=== PATIENT | male | born 1960 | race Caucasian/White ===

== ENCOUNTER 2017-12-05 03:56 | Observation (INO) | payer MEDICARE, SELFPAY ==
[2017-12-05] VITALS (10 sets, daily range): BP systolic 128–152; BP diastolic 61–83; PULSE 61–92; RESP 15–19; TEMP 36.3–36.7; O2SAT 95–97; BMI 45.1; BMI 44.6; BMI 44.7
--- NOTE | 2017-12-05 04:11 | ED.VISSUMM ---
- ER Visit Summary Date of Service: 12/05/17 Chief Complaint: [] Lower GI bleeed History of Present Illness: The patient is a 57 M [] planing of lower GI bleed beginning 2-3 days ago. Patient reports a history of upper and lower GI bleed. Patient denies any hematemesis or nausea or vomiting. Reports a mixture of melena and bright red blood per rectum with intermittent bowel movements. Reports normal frequency of bowel movements. Denies chest pain or shortness of breath. Denies fatigue. Does report a history of BOOTHE syndrome/fatty liver syndrome. His at the bedside reports he takes lactulose for elevated ammonia levels. Reports his primary care physician is Dr. Broussard. Reports his department head is at [facility]. Physical Examination: [] Morbidly obese male in no acute distress. Afebrile, vital signs stable. Cardiovascular exam is regular rate and rhythm. Lungs are clear to auscultation. Abdomen is obese, soft, nontender. No lower extremity edema. Digital rectal exam reveals small external hemorrhoid with trace bright red blood per rectum from within the rectal cavity and not from the hemorrhoids. Test Results: [] CBC, BMP, LFTs, lipase within normal limits. INR 1.2. PTT 3 9.2. Ammonia pending. Emergency Department Course and Treatment: [] Patient did not have any active bleeding during the emergency department initial evaluation and on serial examination. Labs are normal. In light of the patient's chronic liver disease and history of previous GI bleed the case was discussed with the hospitalist who is amenable to admission if the on-call surgeon was also amenable to potentially evaluating the patient. The surgeon was okay with this arrangement and the patient will be admitted to the general medical floor. Treatment Plan: [] Admit to general medical floor. Disposition: [] Admit, stable. Impression: [] Lower GI bleed History of Boothe syndrome This note was generated with [employer] dictation software. It may contain incorrect words, spelling, and punctuation that were not noted in review of the chart prior to signing ED Disposition - Plan for ED Patient: Chief Complaint: GI Bleed Referrals: Pedro Pablo Broussard III, MD [Primary Care Provider] -
--- NOTE | 2017-12-05 04:14 | ED.DCSUM_ITS ---
- ER Visit Summary Date of Service: 12/05/17 Chief Complaint: [] Lower GI bleeed History of Present Illness: The patient is a 57 M [] planing of lower GI bleed beginning 2-3 days ago. Patient reports a history of upper and lower GI bleed. Patient denies any hematemesis or nausea or vomiting. Reports a mixture of melena and bright red blood per rectum with intermittent bowel movements. Reports normal frequency of bowel movements. Denies chest pain or shortness of breath. Denies fatigue. Does report a history of BOOTHE syndrome/fatty liver syndrome. His at the bedside reports he takes lactulose for elevated ammonia levels. Reports his primary care physician is Dr. Broussard. Reports his anatomic pathologist is at [facility]. Physical Examination: [] Morbidly obese male in no acute distress. Afebrile, vital signs stable. Cardiovascular exam is regular rate and rhythm. Lungs are clear to auscultation. Abdomen is obese, soft, nontender. No lower extremity edema. Digital rectal exam reveals small external hemorrhoid with trace bright red blood per rectum from within the rectal cavity and not from the hemorrhoids. Test Results: [] CBC, BMP, LFTs, lipase within normal limits. INR 1.2. PTT 3 9.2. Ammonia pending. Emergency Department Course and Treatment: [] Patient did not have any active bleeding during the emergency department initial evaluation and on serial examination. Labs are normal. In light of the patient's chronic liver disease and history of previous GI bleed the case was discussed with the hospitalist who is amenable to admission if the on-call surgeon was also amenable to potentially evaluating the patient. The surgeon was okay with this arrangement and the patient will be admitted to the general medical floor. Treatment Plan: [] Admit to general medical floor. Disposition: [] Admit, stable. Impression: [] Lower GI bleed History of Boothe syndrome This note was generated with [employer] dictation software. It may contain incorrect words, spelling, and punctuation that were not noted in review of the chart prior to signing ED Disposition - Plan for ED Patient: Chief Complaint: GI Bleed Referrals: Pedro Pablo Broussard III, MD [Primary Care Provider] -
[2017-12-05] MEDS: 0.9% Normal Saline 1,000 ML 125 ML IV ×3 (04:16→20:13)
[2017-12-05 04:24] LABS: International Normalized Ratio 1.2; Prothrombin Time (Protime)PT. 14.8 SECONDS (11.7-14.9)
[2017-12-05 04:25] LABS: Partial Thromboplast Time 39.2 Seconds (24.1-36.2)
[2017-12-05 04:27] LABS: Absolute Lymphocyte Count 1.79 X10^3/ul (0.83-4.51); Absolute Neutrophil Count 2.7 X10^3/uL (2.0-7.7); Basophil# 0.05 X10^3/uL; Basophil% 0.9 % (0-1); Eosinophil# 0.25 X10^3/uL; Eosinophils% 4.5 % (0-5); Hematocrit 37.5 % (40-54); Hemoglobin 13.5 g/dl (13.0-16.5); Lymphocyte # 1.79 X10^3/ul (4.0); Lymphocyte % 32.5 % (19-41); Mean Corpuscular Hgb 34.3 pg (27.0-32.0); Mean Corpuscular Volume 95.2 fL (80-94); Mean Platelet Vol. 8.4 fl (6.2-12.0); Monocyte# 0.69 X10^3/uL; Monocyte% 12.5 % (0-10); Neutrophil # 2.73 X10^3/uL (2.7-7.7); Neutrophil % 49.6 % (47-70); Platelet Count 164 K/mm3 (150-450); RBC Distribution Width CV 12.8 % (11.6-14.6); Red Blood Count 3.94 M/mm3 (4.6-6.2); White Blood Count 5.5 K/mm3 (4.4-11.0)
[2017-12-05 04:31] LABS: POSITIVE COUNT NO; POSITIVE DIFFERENTIAL NO; POSITIVE MORPHOLOGY NO
[2017-12-05 04:35] LABS: ALB/GLOB Ratio 0.8 RATIO (0.9-2.4); AST(SGOT) 39 U/L (15-37); Alanine Aminotransfer ALT/SGPT 19 U/L (16-61); Alkaline Phosphatase 90 U/L (45-117); Anion Gap 8 (5-15); BUN 16 mg/dL (7-18); BUN/Creat Ratio 17.4 RATIO (10-20); Calcium,Total 8.6 mg/dL (8.5-10.1); Chloride 108 mmol/L (98-107); Creatinine, Serum 0.92 mg/dL (0.70-1.30); EST Glomerular Filtration Rate 90 mL/min (>60); Est Glom Filt Rate - Afr Amer 109 mL/min (>60); Estimated Creatinine Clearance 91.47 ml/min; Globulin 3.9 g/dL (2.2-4.2); Glucose 97 mg/dL (74-106); Lipase 197 U/L (73-393); Potassium 4.2 mmol/L (3.5-5.1); Protein, Total 6.9 g/dL (6.4-8.2); Sodium Level 141 mmol/L (136-145)
--- NOTE | 2017-12-05 04:49 | PCM.HP.STD ---
Problem List (1) Morbid obesity with body mass index of 45.0-49.9 in adult Status: Chronic (2) GERD (gastroesophageal reflux disease) Status: Chronic Qualifiers: Esophagitis presence: esophagitis presence not specified Qualified Code(s): K21.9 - Gastro-esophageal reflux disease without esophagitis (3) SANTHOSH (obstructive sleep apnea) Status: Chronic (4) TIA (transient ischemic attack) Status: Chronic Qualifiers: Transient cerebral ischemia type: unspecified Qualified Code(s): G45.9 - Transient cerebral ischemic attack, unspecified (5) History of peptic ulcer Status: Chronic (6) Osteoarthritis Status: Chronic Qualifiers: Osteoarthritis location: unspecified site Osteoarthritis type: unspecified Qualified Code(s): M19.90 - Unspecified osteoarthritis, unspecified site (7) HTN (hypertension) Status: Chronic Qualifiers: Hypertension type: essential hypertension Qualified Code(s): I10 - Essential (primary) hypertension (8) BOOTHE (nonalcoholic steatohepatitis) Status: Chronic History of Present Illness Date of Admission: 12/05/17 Chief Complaint: Rectal bleeding The patient is a 57 y/o M w/ PMHx: ? Hx CVA w/ Dysarthria, Cirrhosis/BOOTHE, History of Peptic and Duodenal Ulcer, History of CVA, GERD, Hypertension, Morbid Obesity, OA, Stasis Dermatitis, SANTHOSH who presents to the [facility] ED on 12/05/17 w/ onset bright red blood per rectum/rectal bleeding starting 2-3 days prior in addition to occasional black appearing stools, noted to be intermittent with bowel movements. He notes two loose stools and once more firm recently. He notes more onset of clots noted. He denies any associated lightheadedness, dizziness. In the ED work-up included AF, HR 60-80s, 152/83 RR 15, 96% on RA, CBC w/ WBC 5.5, Hgb 13.5, Plts 164 with increased mono%, coags w/ PTT 39.2 otherwise normal, CMP w/ Chl 108, Ammonia 62, AST/ALT 39/19, Alk phos 90, lipase 197. In the ED patient administered NS. Dr. Engel contacted per ED and amenable to evaluation of patient for his GI bleed. 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) old stroke not visible on MRI- [facility] neurology opinion History of peptic ulcer (Chronic) Osteoarthritis (Chronic) HTN (hypertension) (Chronic) Allergies aspirin Adverse Reaction (Verified 08/03/17 17:04) Upset Stomach Home Medications: Ambulatory Orders Medication Instructions Recorded Lisinopril [Zestril] 40 mg PO DAILY 12/24/15 Lactulose [Chronulac] 30 gm PO TIDCM 01/16/16 Spironolactone [Aldactone] 25 mg PO DAILY #30 tablet 01/18/16 Rifaximin [Xifaxan] 550 mg PO BID 11/16/16 Surgical History: cholecystectomy, total hip arthroplasty, - - bilateral knee replacement, liver bx Psychiatric History: No pertinent psych hx Lives: Spouse/ Significant Other Smoking Status: Never smoker Tobacco Use: Non-smoker Alcohol: None Drugs: None - *Family History Maternal History Items: No pertinent history Paternal History Items: Diabetes Review of Systems Constitutional: Reports: Fatigue. Denies: Chills, Fever, Weight Change HEENT: Denies: Head Aches, Sinus Congestion, Sinus Drainage Cardiovascular: Denies: Chest Pain, Palpitations Respiratory: Denies: Cough, Shortness of breath at rest, Sputum production Gastrointestinal: Reports: Diarrhea, - - BRBPR, rectal bleeding.. Denies: Abdominal Pain, Nausea, Vomiting Genitourinary: Denies: Dysuria Musculoskeletal: Denies: Joint Pain, Joint Tenderness Skin: Reports: Skin Changes. Denies: Rash, Wounds Neurological: Denies: Numbness, Tingling, Focal weakness Psychiatric: Denies: Anxiety, Depression, Homicidal Ideations, Suicidal Ideations Hematologic/ Lymphatic: Reports: Easy Bruising, Easy Bleeding VTE Information - Inpt Only VTE Present on Admission: No VTE Mechan Device Prophylaxis: SCD's VTE Pharm Prophylaxis ordered?: No Reason prophylaxis not ordered:: Medical Contraindication Subjective: Seated upright in the ED bed, baseline dysarthria, NAD. Objective: Physical Examination: General: awake, alert, oriented x 3 and cooperative, seated upright in ED bed in no apparent distress. Skin: normal color, turgor, mild icterus, cyanosis, BL LE chronic venous skin changes. HEENT: AT/NC, EOMI, PERRLA, moderately dry MM, no carotid bruits or JVD noted. Lungs: CTA bilaterally, moderate effort, moderate decrease BL bases, no rales, ronchi or wheezing. Heart: Regular rate and rhythm; no gallop, rub audible. Abdomen/: soft, morbidly obese, no fluid shit/wave, NTTP, ND, mildly hyperactive, + HM however, examination difficult secondary to habitus, rectal examination w/ stool w/ BRB. Extremities: no cyanosis, clubbing, BL LE ankle edema. Neurological: patient awake, alert, oriented x 3; cognitive function appears intact; chronic dysarthria; pupils equally reactive to light and accomodation; cranial nerves II-XII grossly normal, moving all 4 extremities, no focal deficits, strength preserved. Psychiatric: affect appears normal, no acute evidence of depressive or anxiety feelings. - Physical Exam Vital Signs Temp Pulse Resp BP Pulse Ox 97.7 F L 82 15 152/83 H 96 12/05/17 03:56 12/05/17 03:56 12/05/17 03:56 12/05/17 03:56 12/05/17 03:56 Oxygen Delivery Method Room Air Weight: 314 lb 13.121 oz Body Mass Index (BMI) 45.1 Finger Stick Blood Glucose 93 Microbiology Past 72 Hours 12/05/17 04:00 Stool Occult Blood (KALEN) - Final Interface Orders Occult Blood Positive Laboratory Tests Past 24 Hrs 12/05/17 12/05/17 12/05/17 03:55 03:55 03:55 WBC 5.5 RBC 3.94 L Hgb 13.5 Hct 37.5 L MCV 95.2 H MCH 34.3 H MCHC 36.0 RDW 12.8 RDW Differential 43.0 Plt Count 164 MPV 8.4 Immature Gran % (Auto) 0.000 Neut % (Auto) 49.6 Lymph % (Auto) 32.5 Dickinson % (Auto) 12.5 H Eos % (Auto) 4.5 Baso % (Auto) 0.9 Absolute Neuts (auto) 2.7 Absolute Lymphs (auto) 1.79 Total Counted Not Reportable PT 14.8 INR 1.2 APTT 39.2 H Sodium 141 Potassium 4.2 Chloride 108 H Carbon Dioxide 25.0 Anion Gap 8 BUN 16 Creatinine 0.92 Estim Creat Clear Calc 91.47 Est GFR (MDRD) Af Amer 109 Est GFR (MDRD) Non-Af 90 BUN/Creatinine Ratio 17.4 Glucose 97 Calcium 8.6 Total Bilirubin 1.00 AST 39 H ALT 19 Alkaline Phosphatase 90 Ammonia Total Protein 6.9 Albumin 3.0 L Globulin 3.9 Albumin/Globulin Ratio 0.8 L Lipase 197 Blood Type Antibody Screen 12/05/17 12/05/17 04:15 04:20 WBC RBC Hgb Hct MCV MCH MCHC RDW RDW Differential Plt Count MPV Immature Gran % (Auto) Neut % (Auto) Lymph % (Auto) Dickinson % (Auto) Eos % (Auto) Baso % (Auto) Absolute Neuts (auto) Absolute Lymphs (auto) Total Counted PT INR APTT Sodium Potassium Chloride Carbon Dioxide Anion Gap BUN Creatinine Estim Creat Clear Calc Est GFR (MDRD) Af Amer Est GFR (MDRD) Non-Af BUN/Creatinine Ratio Glucose Calcium Total Bilirubin AST ALT Alkaline Phosphatase Ammonia 62.0 H Total Protein Albumin Globulin Albumin/Globulin Ratio Lipase Blood Type Pending Antibody Screen Pending Assessment/Plan The patient is a 57 y/o M w/ PMHx: ? Hx CVA w/ Dysarthria, Cirrhosis/BOOTHE, History of Peptic and Duodenal Ulcer, History of CVA, GERD, Hypertension, Morbid Obesity, OA, Stasis Dermatitis, SANTHOSH who presents to the [facility] ED on 12/05/17 w/ onset bright red blood per rectum/rectal bleeding starting 2-3 days prior in addition to occasional black appearing stools, noted to be intermittent with bowel movements. (1) GI Bleed, ? Melanotic Stools, ? Primarily Acute Rectal Bleeding: Admission Hgb 13.5, will admit to [facility] w/ telemetry, maintain on IVFs, obtain serial H+H q 6 hours, maintain on IV PPI. Given patient is cirrhotic will place on prophylaxis w/ rocephin. (2) BOOTHE, Cirrhosis: NH 62, similar with baseline prior noted, once not NPO status transition to low Na/cardiac diet, continue lactulose, spironolactone and xifaxan regimen. Will repeat CMP, ammonia level in AM. (3) Hypertension: Continue home regimen including lisinopril, spironolactone. Was on lasix prior. PRN hydralazine. (4) Peptic Ulcer Disease/Duodenal Ulcer Disease, GERD: Protonix IV. (5) SANTHOSH: CPAP q HS. (6) Morbid Obesity: Weight loss and lifestyle changes encouraged, nutrition consulted. (7) ? Hx CVA w/ Dysarthria: Per family no history of TIA/CVA, noted speech deficit secondary to his liver disease, poor historians, review of MRIs from prior admissions w/ no evidence acute CVA/old CVA, not on ASA secondary to his liver disease, not on statin likely secondary to his liver disease, continue BP regimen. (8) DVT prophylaxis: SCDs, defer chemoprophylaxis given rectal bleeding. Code Visit OBSV E&M: [id number] Initial observation care L3
[2017-12-05] MEDS: Ceftriaxone 1 GM/50 ML BAG IV (07:13)
--- NOTE | 2017-12-05 07:22 | CPS ---
Discussed CPAP with pt and . Pt states he does have CPAP at home. Told pt and they can bring in home unit or wear ours. Pt states he will do without.
[2017-12-05 07:37] LABS: Hematocrit 34.2 % (40-54); Hemoglobin 12.1 g/dl (13.0-16.5)
--- NOTE | 2017-12-05 10:11 | PCM.CONS.GEN ---
Problem List (1) Rectal bleed Status: Chronic Reason for Consult Date of Consultation: 12/05/17 Reason for Consultation: GI bleed History of Present Illness: The patient is a 57 year old M who presented to the ED with 2-3 days of rectal bleeding. Patient noted he had intermittent bright red and dark red bleeding with clots. He noted the worst episode was this morning which is what brought him into the ED. Patient denies abdominal pain/discomfort, nausea, hematemesis, chest pain, lightheadedness and dizziness. Patient notes prior to these episodes he was having normal bowel movements. Patient has not had a bowel movement since admission. He is not currently on anticoagulation. Patient states his last colonoscopy was in [address] Chance at [facility]. He had a polyp removed at that time which returned as hyperplastic polyp. Patient has also had multiple upper scopes with history of esophageal stricture. Patient's last EGD with dilatation was on 03/10/17 at [facility]. Patient had dilatation of the entire esophagus. There was mentioned of multiple non-bleeding duodenal ulcers. Patient was to be on Protonix 40 mg twice daily for 3 months. He is not currently taking antacids. Patient denies of reflux symptoms. Patient has a history of cirrhosis secondary to BOOTHE. He has a history of stroke in 2013 which has effected his speech and memory, however patient answers questions appropriately. Patient is also morbidly obese. Patient denies previous cardiac history. Previous abdominal surgery includes gallbladder. Positive fecal occult blood test was noted this admission. 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) old stroke not visible on MRI- [facility] neurology opinion History of peptic ulcer (Chronic) Osteoarthritis (Chronic) HTN (hypertension) (Chronic) Allergies aspirin Adverse Reaction (Verified 08/03/17 17:04) Upset Stomach Home Medications: Ambulatory Orders Medication Instructions Recorded Lisinopril [Zestril] 40 mg PO DAILY 12/24/15 Lactulose [Chronulac] 30 gm PO TIDCM 01/16/16 Spironolactone [Aldactone] 25 mg PO DAILY #30 tablet 01/18/16 Rifaximin [Xifaxan] 550 mg PO BID 11/16/16 Surgical History: cholecystectomy, total hip arthroplasty, - - bilateral knee replacement, liver bx Psychiatric History: No pertinent psych hx Lives: Spouse/ Significant Other Smoking Status: Never smoker Tobacco Use: Non-smoker Alcohol: None Drugs: None - *Family History Maternal History Items: No pertinent history Paternal History Items: Diabetes Review of Systems Constitutional: Denies: Chills, Fever, Weight Change HEENT: Reports: - - Difficulty with speech. Denies: Head Aches, Sinus Congestion, Sinus Drainage Cardiovascular: Denies: Chest Pain, Palpitations Respiratory: Denies: Cough, Shortness of breath at rest, Sputum production Gastrointestinal: Reports: Diarrhea, Hematochezia, Melena. Denies: Abdominal Pain, Hematemesis, Nausea, Vomiting Genitourinary: Denies: Dysuria Musculoskeletal: Reports: Joint stiffness Skin: Denies: Rash, Wounds Neurological: Reports: Balance problems, - - Difficult with speech secondary to stroke Psychiatric: Denies: Anxiety, Depression, Homicidal Ideations, Suicidal Ideations Hematologic/ Lymphatic: Denies: Easy Bruising, Easy Bleeding - Physical Exam General: Alert, Oriented x3, Cooperative HEENT: Atraumatic, PERRLA, EOMI, Normocephalic Neck: Supple, No JVD, Negative Carotid Bruits Lungs: Clear to auscultation, Normal air movement Cardiovascular: Regular rate, No murmurs Abdomen: Bowel Sounds Present, Soft, Non Tender, Non-Distended, Obese, - - Difficult exam due to obesity Extremities: No edema, Diminished Peripheral Pulses Skin: No rashes, No breakdown Musculoskeletal: No Tenderness to Palpation of Joints or Extremities Neurological: Neuro grossly intact Psych/Mental Status: Normal Affect, Appropriate Vital Signs Temp Pulse Resp BP Pulse Ox 97.5 F L 65 19 H 132/72 H 95 12/05/17 06:03 12/05/17 06:03 12/05/17 06:03 12/05/17 06:03 12/05/17 07:21 Oxygen Delivery Method Room Air Weight: 311 lb 4.683 oz Body Mass Index (BMI) 44.6 Laboratory Tests Past 24 Hrs 12/05/17 07:25 Hgb 12.1 L Hct 34.2 L Assessment/Plan I have been consulted in conjunction with Dr. Engel. Impression: Lower GI bleed Plan: Patient was discussed with Dr. Engel. Dr. nEgel will plan to perform an upper and lower scope with possible biopsies under MAC. Procedure details, risks and benefits have been discussed with the patient. Plan for Gol[place]ely today and scope tomorrow. Patient will be NPO after midnight tonight. Patient has had the opportunity to ask and have questions answered. Patient verbally understands and agrees with the plan. We will continue to monitor this patient. Thank you for allowing us to participate in this patient's care. My recommendations will be available via medical records.
--- NOTE | 2017-12-05 10:18 | CON.PCM_ITS ---
Problem List (1) Rectal bleed Status: Chronic Reason for Consult Date of Consultation: 12/05/17 Reason for Consultation: GI bleed History of Present Illness: The patient is a 57 year old M who presented to the ED with 2-3 days of rectal bleeding. Patient noted he had intermittent bright red and dark red bleeding with clots. He noted the worst episode was this morning which is what brought him into the ED. Patient denies abdominal pain/discomfort, nausea, hematemesis, chest pain, lightheadedness and dizziness. Patient notes prior to these episodes he was having normal bowel movements. Patient has not had a bowel movement since admission. He is not currently on anticoagulation. Patient states his last colonoscopy was in [address] Chance at [facility]. He had a polyp removed at that time which returned as hyperplastic polyp. Patient has also had multiple upper scopes with history of esophageal stricture. Patient's last EGD with dilatation was on 03/10/[address] [facility]. Patient had dilatation of the entire esophagus. There was mentioned of multiple non- bleeding duodenal ulcers. Patient was to be on Protonix 40 mg twice daily for 3 months. He is not currently taking antacids. Patient denies of reflux symptoms. Patient has a history of cirrhosis secondary to BOOTHE. He has a history of stroke in 2013 which has effected his speech and memory, however patient answers questions appropriately. Patient is also morbidly obese. Patient denies previous cardiac history. Previous abdominal surgery includes gallbladder. Positive fecal occult blood test was noted this admission. 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) old stroke not visible on MRI- [facility] neurology opinion History of peptic ulcer (Chronic) Osteoarthritis (Chronic) HTN (hypertension) (Chronic) Allergies aspirin Adverse Reaction (Verified 08/03/17 17:04) Upset Stomach Home Medications: Ambulatory Orders Medication Instructions Recorded Lisinopril [Zestril] 40 mg PO DAILY 12/24/15 Lactulose [Chronulac] 30 gm PO TIDCM 01/16/16 Spironolactone [Aldactone] 25 mg PO DAILY #30 tablet 01/18/16 Rifaximin [Xifaxan] 550 mg PO BID 11/16/16 Surgical History: cholecystectomy, total hip arthroplasty, - - bilateral knee replacement, liver bx Psychiatric History: No pertinent psych hx Lives: Spouse/ Significant Other Smoking Status: Never smoker Tobacco Use: Non-smoker Alcohol: None Drugs: None - *Family History Maternal History Items: No pertinent history Paternal History Items: Diabetes Review of Systems Constitutional: Denies: Chills, Fever, Weight Change HEENT: Reports: - - Difficulty with speech. Denies: Head Aches, Sinus Congestion, Sinus Drainage Cardiovascular: Denies: Chest Pain, Palpitations Respiratory: Denies: Cough, Shortness of breath at rest, Sputum production Gastrointestinal: Reports: Diarrhea, Hematochezia, Melena. Denies: Abdominal Pain, Hematemesis, Nausea, Vomiting Genitourinary: Denies: Dysuria Musculoskeletal: Reports: Joint stiffness Skin: Denies: Rash, Wounds Neurological: Reports: Balance problems, - - Difficult with speech secondary to stroke Psychiatric: Denies: Anxiety, Depression, Homicidal Ideations, Suicidal Ideations Hematologic/ Lymphatic: Denies: Easy Bruising, Easy Bleeding - Physical Exam General: Alert, Oriented x3, Cooperative HEENT: Atraumatic, PERRLA, EOMI, Normocephalic Neck: Supple, No JVD, Negative Carotid Bruits Lungs: Clear to auscultation, Normal air movement Cardiovascular: Regular rate, No murmurs Abdomen: Bowel Sounds Present, Soft, Non Tender, Non-Distended, Obese, - - Difficult exam due to obesity Extremities: No edema, Diminished Peripheral Pulses Skin: No rashes, No breakdown Musculoskeletal: No Tenderness to Palpation of Joints or Extremities Neurological: Neuro grossly intact Psych/Mental Status: Normal Affect, Appropriate Vital Signs Temp Pulse Resp BP Pulse Ox 97.5 F L 65 19 H 132/72 H 95 12/05/17 06:03 12/05/17 06:03 12/05/17 06:03 12/05/17 06:03 12/05/17 07:21 Oxygen Delivery Method Room Air Weight: 311 lb 4.683 oz Body Mass Index (BMI) 44.6 Laboratory Tests Past 24 Hrs 12/05/17 07:25 Hgb 12.1 L Hct 34.2 L Assessment/Plan I have been consulted in conjunction with Dr. Engel. Impression: Lower GI bleed Plan: Patient was discussed with Dr. Engel. Dr. Engel will plan to perform an upper and lower scope with possible biopsies under MAC. Procedure details, risks and benefits have been discussed with the patient. Plan for Golytely today and scope tomorrow. Patient will be NPO after midnight tonight. Patient has had the opportunity to ask and have questions answered. Patient verbally understands and agrees with the plan. We will continue to monitor this patient. Thank you for allowing us to participate in this patient's care. My recommendations will be available via medical records.
[2017-12-05] MEDS: Lactulose 20 GM/30 ML UDC 30 GM PO (12:20)
[2017-12-05] MEDS: Spironolactone 25 MG Tablet PO (12:21)
[2017-12-05] MEDS: Lisinopril 40 MG Tablet PO (12:21)
[2017-12-05] MEDS: rifAXIMin 550 MG Tablet PO ×2 (12:21→22:40)
[2017-12-05] MEDS: Electrolyte Solution/Peg's 4000 ML PO (15:52)
[2017-12-06] VITALS (10 sets, daily range): BP systolic 118–142; BP diastolic 52–77; PULSE 63–95; RESP 16–20; TEMP 36.4–37.1; O2SAT 95–97
--- NOTE | 2017-12-06 | EGD_PTH ---
PATIENT: DIOR PRICE LOC: MS3 U#:[id number] AGE/SX: 57/M ROOM: MS312 RE12/05/[address]: Dr. Skyler Reddy MD : 1960 BED: 1 DIS: 12/06/2017 SPEC #: [id number] RECD: 12/06/17 15:06 STATUS: LORRAINE SANTIAGO #: [id number] GENTRY: 12/06/17 00:[address]: Olvin Engel DEPT: SURGICAL PATHOLOGY RECD BY: Kaiden Booker ENTERED: 12/06/17 15:06 SP TYPE: EGD BIOPSY OTHR DR: MD Dr. Pedro Pablo Enrique III, MD Dr. 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 Benign appearing lymphoid aggregates. AM:héctor 12/07/17 MICROSCOPIC DESCRIPTION Slides are reviewed. GROSS DESCRIPTION Received in fixative is one container labeled with the patient's name and designated duodenal biopsy. The specimen consists of one irregular fragment of light luther soft tissue that measures 0.4 x 0.2 x 0.1 cm. The specimen is totally submitted in one cassette. / SJ:héctor 12/06/17 TC:5 CPT: 22301
[2017-12-06] MEDS: 0.9% Normal Saline 1,000 ML 125 ML IV (05:08)
[2017-12-06 05:59] LABS: Absolute Lymphocyte Count 1.33 X10^3/ul (0.83-4.51); Absolute Neutrophil Count 1.7 X10^3/uL (2.0-7.7); Basophil# 0.03 X10^3/uL; Basophil% 0.8 % (0-1); Eosinophil# 0.18 X10^3/uL; Hematocrit 34.4 % (40-54); Hemoglobin 11.7 g/dl (13.0-16.5); Lymphocyte # 1.33 X10^3/ul (4.0); Lymphocyte % 37.2 % (19-41); Mean Corpuscular Hgb 33.1 pg (27.0-32.0); Mean Corpuscular Volume 97.2 fL (80-94); Mean Platelet Vol. 8.5 fl (6.2-12.0); Monocyte# 0.39 X10^3/uL; Monocyte% 10.9 % (0-10); Neutrophil # 1.65 X10^3/uL (2.7-7.7); Neutrophil % 46.1 % (47-70); Platelet Count 113 K/mm3 (150-450); RBC Distribution Width CV 13.4 % (11.6-14.6); RBC Distribution Width SD 47.3 fl (35.1-43.9); Red Blood Count 3.54 M/mm3 (4.6-6.2); White Blood Count 3.6 K/mm3 (4.4-11.0)
[2017-12-06 06:01] LABS: POSITIVE COUNT NO; POSITIVE DIFFERENTIAL NO; POSITIVE MORPHOLOGY NO
[2017-12-06 06:16] LABS: Anion Gap 6 (5-15); BUN 12 mg/dL (7-18); BUN/Creat Ratio 15.4 RATIO (10-20); Calcium,Total 7.8 mg/dL (8.5-10.1); Chloride 109 mmol/L (98-107); Creatinine, Serum 0.78 mg/dL (0.70-1.30); EST Glomerular Filtration Rate 109 mL/min (>60); Est Glom Filt Rate - Afr Amer 131 mL/min (>60); Estimated Creatinine Clearance 107.89 ml/min; Glucose 77 mg/dL (74-106); Magnesium 1.7 mg/dL (1.6-2.6); Potassium 4.1 mmol/L (3.5-5.1); Sodium Level 141 mmol/L (136-145)
--- NOTE | 2017-12-06 07:04 | PN_ITS ---
Progress Note Patient evaluated resting comfortably in bed. He denies abdominal pain/ discomfort. He tolerated the bowel prep well without any nausea, vomiting. Patient is scheduled for an upper and lower scope with Dr. Engel approximately 12 pm.
--- NOTE | 2017-12-06 08:40 | PCM.PROGNOTE ---
Subjective: Chief complaint: Follow-up after admission for GI bleed. Patient seen and examined. No acute events overnight. He mentioned that he had a bowel movement this morning with a little small blood clots, no significant bleeding. Denied abdominal pain, nausea vomiting. Denied chest pain or shortness of breath. Vital signs are stable. - Physical Exam General: Alert, Cooperative, No apparent distress, Well developed HEENT: Atraumatic, PERRLA, EOMI Oral: Moist Mucosa, No Gingival or Mucosal Lesions/ Ulcerations Neck: Supple, No JVD, Negative Carotid Bruits, Trachea Midline, Thyroid Normal Size and Texture Lungs: Clear to auscultation, No rhonchi, No wheeze, No rales, Diminished Cardiovascular: Regular rate, Regular Rhythm, Normal S1, Normal S2, No murmurs, PMI Normal Abdomen: Bowel Sounds Present, Soft, Non Tender, Non-Distended, No Hepato-splenomegaly, Obese Extremities: No clubbing, No cyanosis, Edema - Trace edema, stasis dermatitis. Skin: No rashes, No breakdown Lymphatic: No Cervical, Supraclavicular, or Inguinal Adenopathy Neurological: Cranial nerves II-XII grossly intact, Motor Exam 5/5 strength throughout Psych/Mental Status: Normal Affect, Appropriate, Alert and oriented to time, place, person, mood and affect Vital Signs Temp Pulse Resp BP Pulse Ox 97.6 F L 74 18 142/77 H 95 12/06/17 03:30 12/06/17 06:00 12/06/17 03:30 12/06/17 03:30 12/06/17 07:54 Oxygen Delivery Method Room Air Weight: 311 lb 4.683 oz Body Mass Index (BMI) 44.6 Intake and Output for Last 24 Hours 12/04/17 12/05/17 12/06/17 23:59 23:59 23:59 Intake Total 1612 / 1612 1386 / 1386 Balance 1612 / 1612 1386 / 1386 Laboratory Tests Past 24 Hrs 12/06/17 12/06/17 05:30 05:30 WBC 3.6 L RBC 3.54 L Hgb 11.7 L Hct 34.4 L MCV 97.2 H MCH 33.1 H MCHC 34.0 RDW 13.4 RDW Differential 47.3 H Plt Count 113 L MPV 8.5 Immature Gran % (Auto) 0.000 Neut % (Auto) 46.1 L Lymph % (Auto) 37.2 [place] % (Auto) 10.9 H Eos % (Auto) 5.0 Baso % (Auto) 0.8 Absolute Neuts (auto) 1.7 L Absolute Lymphs (auto) 1.33 Total Counted Not Reportable Sodium 141 Potassium 4.1 Chloride 109 H Carbon Dioxide 26.0 Anion Gap 6 BUN 12 Creatinine 0.78 Estim Creat Clear Calc 107.89 Est GFR (MDRD) Af Amer 131 Est GFR (MDRD) Non-Af 109 BUN/Creatinine Ratio 15.4 Glucose 77 Calcium 7.8 L Magnesium 1.7 Assessment/Plan This is a 57 years old male patient presented to the emergency room because of rectal bleeding and black stool and he was found to have GI bleed in context of history of recurrent GI bleed. #1 GI bleed: With melanotic stool. Patient did have a history of GI bleed in the past as well. According to the patient, he has no more significant rectal bleeding. Today's hemoglobin is 11.7 g/dL. He has chronic thrombocytopenia secondary to liver cirrhosis, INR is 1.2, pro time is normal. General surgery consulted, plan for upper EGD and colonoscopy today. #2 anemia: Secondary to above in addition to history of chronic anemia as well as hemodilution. His hemoglobin has been fluctuating up and down, it ranges anywhere from 10-13 g/dL. Admission hemoglobin was 13.5 compensated, came down to 11.7 g/dL today. Also patient has been on IV fluids. At this time, no indication for transfusion. #3 liver cirrhosis: Due to Ricci. His ammonia is currently elevated and he does have chronic thrombocytopenia. His LFT and lipase were normal. He is on prophylactic Rocephin as well as lactulose, spironolactone and rifaximin. #4 hypertension: Pressure stable, continue lisinopril and IV hydralazine as needed. #5 peptic ulcer disease: Continue Protonix. #6 obstructive sleep apnea: Continue CPAP nightly. #7 DVT prophylaxis: SCDs. This note was generated with StumbleUponation software. It may contain incorrect words, spelling, and punctuation that were not noted in checking the note before signing.
[2017-12-06] MEDS: Ceftriaxone 1 GM/50 ML BAG IV (10:10)
--- NOTE | 2017-12-06 11:22 | PCM.OPRPT ---
Problem List (1) Rectal bleed Status: Chronic (2) Duodenal ulcer Status: Chronic Report of Operation Date of Procedure: 12/06/17 Pre-Operative Diagnosis: K62.5 rectal bleeding. K26.9 DU ulcer chronic Post-Operative Diagnosis: Same Surgery/Procedure Performed:: 1. 93889 esophagogastroduodenoscopy with biopsy. 2. 60318 colonoscopy Type of Anesthesia:: MAC Anesthesiologist: Mike Hawkins Description of Procedure: Patient was brought into the endoscopy suite. Back of his throat was sprayed with Cetacaine spray. A bite-block was placed. He was placed in the left lateral decubitus position. He was given graded anesthesia. The scope was inserted into the back of the mouth and directed down through the esophagus into the stomach and into the duodenum without difficulty. operative findings: 1: duodenum: small little mass which was biopsied looked primarily like Abi's gland hyperplasia he did not have a malignant appearance there were no ulcers seen in the duodenum. This did include the duodenal bulb. There was no active bleeding identified. #2 stomach: Normal appearance no mass lesions no ulcerations no signs of any active bleeding there was no hiatal hernia identified. 3. Esophagus: Normal appearance no mass lesions no esophagitis no signs of any bleeding whatsoever scope easily traversed all the way from the oropharynx all the way down through the esophagus without any difficulty and I did not see any need for any dilatation at this time. Colonoscope was then inserted into the rectum and directed through the sigmoid colon, descending colon, transverse colon, ascending colon. I was unable to get the scope all the way into the cecum although I did see the ileocecal valve quite clearly and it looked normal and there was no signs of any active bleeding however I could not get down past the ileocecal valve to look posteriorly to make sure that it looked normal there. Operative findings: 1. Ascending colon: Normal appearance no mass lesions 2. Transverse colon: Normal appearance no mass lesions. 3. Descending colon: Normal appearance no mass lesions. 4. Sigmoid colon: Normal appearance no mass lesions. 5. Rectum: Normal appearance no mass lesions retroflexion revealed internal hemorrhoids which look like they had had some active bleeding in the past and were more than likely the source of his Hemoccult positive stools. Patient had a rather poor bowel prep and given the fact that we were unable to get all the way to the cecum 1 or 2 things will have to happen he will either have to get back with his cement fittings maker for repeat colonoscopy in a year which more likely would be safe or he will have to get a barium enema which I really do not think he needs at this time I think a repeat scope would be a better thing to do with his cement fittings maker at the main campus. - Admit VTE Documentation VTE Present on Admission: No VTE Mechan Device Prophylaxis: None VTE Pharm Prophylaxis ordered?: No Reason prophylaxis not ordered:: Treatment Not Indicated
--- NOTE | 2017-12-06 11:29 | OP.PCM_ITS ---
Problem List (1) Rectal bleed Status: Chronic (2) Duodenal ulcer Status: Chronic Report of Operation Date of Procedure: 12/06/17 Pre-Operative Diagnosis: K62.5 rectal bleeding. K26.9 DU ulcer chronic Post-Operative Diagnosis: Same Surgery/Procedure Performed:: 1. 36283 esophagogastroduodenoscopy with biopsy. 2. 86829 colonoscopy Type of Anesthesia:: MAC Anesthesiologist: Mike Hawkins Description of Procedure: Patient was brought into the endoscopy suite. Back of his throat was sprayed with Cetacaine spray. A bite-block was placed. He was placed in the left lateral decubitus position. He was given graded anesthesia. The scope was inserted into the back of the mouth and directed down through the esophagus into the stomach and into the duodenum without difficulty. operative findings: 1: duodenum: small little mass which was biopsied looked primarily like Abi' s gland hyperplasia he did not have a malignant appearance there were no ulcers seen in the duodenum. This did include the duodenal bulb. There was no active bleeding identified. #2 stomach: Normal appearance no mass lesions no ulcerations no signs of any active bleeding there was no hiatal hernia identified. 3. Esophagus: Normal appearance no mass lesions no esophagitis no signs of any bleeding whatsoever scope easily traversed all the way from the oropharynx all the way down through the esophagus without any difficulty and I did not see any need for any dilatation at this time. Colonoscope was then inserted into the rectum and directed through the sigmoid colon, descending colon, transverse colon, ascending colon. I was unable to get the scope all the way into the cecum although I did see the ileocecal valve quite clearly and it looked normal and there was no signs of any active bleeding however I could not get down past the ileocecal valve to look posteriorly to make sure that it looked normal there. Operative findings: 1. Ascending colon: Normal appearance no mass lesions 2. Transverse colon: Normal appearance no mass lesions. 3. Descending colon: Normal appearance no mass lesions. 4. Sigmoid colon: Normal appearance no mass lesions. 5. Rectum: Normal appearance no mass lesions retroflexion revealed internal hemorrhoids which look like they had had some active bleeding in the past and were more than likely the source of his Hemoccult positive stools. Patient had a rather poor bowel prep and given the fact that we were unable to get all the way to the cecum 1 or 2 things will have to happen he will either have to get back with his online marketer for repeat colonoscopy in a year which more likely would be safe or he will have to get a barium enema which I really do not think he needs at this time I think a repeat scope would be a better thing to do with his online marketer at the main campus. - Admit VTE Documentation VTE Present on Admission: No VTE Mechan Device Prophylaxis: None VTE Pharm Prophylaxis ordered?: No Reason prophylaxis not ordered:: Treatment Not Indicated
--- NOTE | 2017-12-06 13:29 | PCM.DC ---
- Discharge Diagnoses Current Active Problems: Current Active and Chronic Problems BOOTHE (nonalcoholic steatohepatitis) (Chronic) You will use the following diet at home:: Regular Your food should be the consistency of: Regular Discharge Activity: Return to Normal Activity Weight Bearing Status: Weight bearing as tolerated Call your doctor if you observe: Fever of 101 or Higher, Shortness of breath, Dizziness, Fainting spells, Increased palpitations (irregular heartbeat), Uncontrolled pain Allergies/Adverse Reactions: Allergies aspirin Adverse Reaction (Verified 08/03/17 17:04) Upset Stomach Medications to take at Discharge Lisinopril [Zestril] 40 mg PO DAILY 12/24/15 Lactulose [Chronulac] 30 gm PO TIDCM 01/16/16 Spironolactone [Aldactone] 25 mg PO DAILY #30 tablet 01/18/16 Rifaximin [Xifaxan] 550 mg PO BID 11/16/16 Primary Care Physician: Pedro Pablo Broussard III, MD [Primary Care Provider] - Please follow up with your Primary Care Physician in: 1 week. Please Follow Up With: Olvin Engel MD When: please call his office.
--- NOTE | 2017-12-06 17:50 | DS.PCM_ITS ---
Discharge Date and Diagnosis Date of Admission: 12/05/17 Date of Discharge: 12/06/17 - Primary Discharge Diagnosis #1 GI bleed, attributed to internal hemorrhoids. #2 anemia, chronic. 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 Engel, general surgery. Operations: None Procedures: Colonoscopy, EGD Summary of Care Provided: The patient is a 57 year old M admitted because of rectal bleeding and black stool and he was found to have internal hemorrhoids and anemia. Patient was admitted for bright red rectal bleeding as well as melanotic stool and found to have stool that was positive for occult blood. This patient has history of liver cirrhosis with chronic thrombocytopenia. He underwent upper EGD and colonoscopy. 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 Also, patient underwent colonoscopy that revealed internal hemorrhoids with minimal active bleeding and this is likely source of the Hemoccult positive stool. This patient had a history of chronic anemia and his hemoglobin has been fluctuating significantly from 10-13 g/dL. His admission hemoglobin was 13.5 g/dL and came down to 11.7 g /dL. But also patient received IV fluids. There was no indication for transfusion. Patient's vital signs remained stable and he remained without dizziness, lightheadedness, chest pain or shortness of breath. At this time, he has no more active bleeding. Patient discharged home in a stable medical condition, discharged on the same medication that he was taking before admission without any changes, plan to follow-up with PCP in 1 week regarding the duodenal biopsies, follow-up with general surgery according to Dr. Engel recommendations. Discharge Activity: Return to Normal Activity Weight Bearing Status: Weight bearing as tolerated Call your doctor if you observe: Fever of 101 or Higher, Shortness of breath, Dizziness, Fainting spells, Increased palpitations (irregular heartbeat), Uncontrolled pain Home Medications: Medications to take at Discharge Lisinopril [Zestril] 40 mg PO DAILY 12/24/15 Lactulose [Chronulac] 30 gm PO TIDCM 01/16/16 Spironolactone [Aldactone] 25 mg PO DAILY #30 tablet 01/18/16 Rifaximin [Xifaxan] 550 mg PO BID 11/16/16 Primary Care Physician: Pedro Pablo Broussard III, MD [Primary Care Provider] - Please follow up with your Primary Care Physician in: 1 week. Please Follow Up With: Olvin Engel MD When: please call his office. Disposition: Home Minutes spent on discharge:: 28 Patient Condition:: Stable Meaningful Use Info Meaningful Use Diagnoses (Choose all that apply): None applicable Code Visit OBSV E&M: 32938 Observation care discharge
== END 2017-12-06 14:03 | disposition home or self-care (01) ==
LOC: ED 04:52 → MS3 05:24
PROVIDERS: Family Medicine; Surgery; Admitting Provider Family Medicine; Emergency Provider Emergency Medicine; Family Provider Family Medicine; PCP Family Medicine; Visit Provider Hospitalist
PROC: 0DJD8ZZ Inspection of Lower Intestinal Tract, Via Natural or Artificial Opening Endoscopic (ICD-10-PCS; CPT 45378; principal; 2017-12-06 12:00)
DX: K64.8 Other hemorrhoids (principal); D64.9 Anemia, unspecified; K75.81 Nonalcoholic steatohepatitis (NASH); E66.01 Morbid (severe) obesity due to excess calories; K21.9 Gastro-esophageal reflux disease without esophagitis; G47.33 Obstructive sleep apnea (adult) (pediatric); I69.322 Dysarthria following cerebral infarction; I10 Essential (primary) hypertension; M19.90 Unspecified osteoarthritis, unspecified site; D69.6 Thrombocytopenia, unspecified; R59.9 Enlarged lymph nodes, unspecified; K74.60 Unspecified cirrhosis of liver; I87.2 Venous insufficiency (chronic) (peripheral); Z87.11 Personal history of peptic ulcer disease; Z68.42 Body mass index [BMI] 45.0-49.9, adult; Z71.3 Dietary counseling and surveillance; Z79.899 Other long term (current) drug therapy
CPT/HCPCS: 43239; 45378; 36415; 80048; 80053; 82140; 82274; 83690; 83735; 85014; 85018; 85025; 85610; 85730; 86850; 86900; 88305; 96361; 96365; 96366; 96367; 97802; 99218; 99285; J7030; A4216; G0378; J1610

== ENCOUNTER 2018-05-30 15:06 | Inpatient (IN) | payer MEDICARE, SELFPAY ==
[2018-05-30 15:07] VITALS: BP 148/73; PULSE 70; RESP 19; TEMP 36.8; O2SAT 93; BMI 44.6
--- NOTE | 2018-05-30 15:34 | ED.VISSUMM ---
- ER Visit Summary Date of Service: 05/30/18 Chief Complaint: Possible elevated ammonia History of Present Illness: The patient is a 58 M with a history of Ricci. Patient felt shaky today and did not want to drive. Family states that usually occurs when his ammonia level is starting to climb. He is currently on 30 mg once daily of lactulose. There is a family member who is a cook pickled meat. She checked him out earlier with a 12-lead. She did note a period of bigeminy and he was somewhat short of breath at that time. He denies those symptoms currently. Physical Examination: Vital signs are unremarkable. Patient sitting up in bed no acute distress. He is alert and talkative. He does have slurred speech at baseline. Heart is regular rate and rhythm. Lung sounds are clear. Abdomen is soft and nontender. Extremity examination is significant for 3+ lower extremity edema that is symmetric. Chronic venous skin changes are noted to the legs. Neuro exam reveals good strength and sensation. No tremor is noted at this time. Test Results: EKG is sinus at 64 with no sign of acute ischemia. Portable chest x-ray is read as bibasilar infiltrates, worse in the left. CBC was a white count 3.9. Platelet count is 106,000 which is consistent with his priors. Chemistry studies unremarkable. LFTs significant for total bili of 1.8 and a direct bili 0.46. His ammonia level is 110. Emergency Department Course and Treatment: The most recent ammonia level I have in our system is from November at which time it was 62. In reviewing [facility] records his ammonia was 62 on April 06 of this year. Patient is ordered a dose of lactulose. He does now tell me that he has had a moist sounding cough and felt more short of breath lately. He will be given a dose of Rocephin and Zithromax here as he may have a developing infiltrate. Blood cultures will be drawn. Treatment Plan: [] Disposition: Admit Impression: 1. Hyperammonemia 2. Developing left lower lobe infiltrate This note was generated with [employer] dictation software. It may contain incorrect words, spelling, and punctuation that were not noted in review of the chart prior to signing ED Disposition - Plan for ED Patient: Chief Complaint: Abn Labs Referrals: Pedro Pablo Broussard III, MD [Primary Care Provider] -
[2018-05-30 15:49] LABS: Absolute Lymphocyte Count 1.47 X10^3/ul (0.83-4.51); Absolute Neutrophil Count 1.9 X10^3/uL (2.0-7.7); Basophil# 0.03 X10^3/uL; Basophil% 0.8 % (0-1); Eosinophil# 0.12 X10^3/uL; Hematocrit 39.5 % (40-54); Hemoglobin 13.4 g/dl (13.0-16.5); Lymphocyte # 1.47 X10^3/ul (4.0); Lymphocyte % 37.3 % (19-41); Mean Corp Hgb Conc 33.9 g/gl (32-36); Mean Corpuscular Hgb 33.2 pg (27.0-32.0); Mean Corpuscular Volume 97.8 fL (80-94); Mean Platelet Vol. 8.4 fl (6.2-12.0); Monocyte# 0.39 X10^3/uL; Monocyte% 9.9 % (0-10); Neutrophil # 1.93 X10^3/uL (2.7-7.7); Platelet Count 106 K/mm3 (150-450); RBC Distribution Width CV 13.1 % (11.6-14.6); RBC Distribution Width SD 46.8 fl (35.1-43.9); Red Blood Count 4.04 M/mm3 (4.6-6.2); White Blood Count 3.9 K/mm3 (4.4-11.0)
[2018-05-30 15:50] LABS: POSITIVE COUNT NO; POSITIVE DIFFERENTIAL NO; POSITIVE MORPHOLOGY NO
[2018-05-30] MEDS: 0.9% Normal Saline 1,000 ML 150 ML IV (15:56)
[2018-05-30 15:57] LABS: International Normalized Ratio 1.3; Prothrombin Time (Protime)PT. 16.1 SECONDS (11.7-14.9)
[2018-05-30 15:58] LABS: Partial Thromboplast Time 40.5 Seconds (24.1-36.2)
[2018-05-30 16:07] LABS: AST(SGOT) 29 U/L (15-37); Alanine Aminotransfer ALT/SGPT 13 U/L (16-61); Albumin, Serum 2.7 g/dL (3.2-5.0); Alkaline Phosphatase 73 U/L (45-117); Anion Gap 9 (5-15); BUN 15 mg/dL (7-18); Bilirubin, Direct 0.46 mg/dL (0.00-0.30); Calcium,Total 8.6 mg/dL (8.5-10.1); Chloride 111 mmol/L (98-107); Creatinine, Serum 0.94 mg/dL (0.70-1.30); EST Glomerular Filtration Rate 88 mL/min (>60); Est Glom Filt Rate - Afr Amer 106 mL/min (>60); Estimated Creatinine Clearance 91.23 ml/min; Globulin 3.5 g/dL (2.2-4.2); Glucose 95 mg/dL (74-106); Potassium 4.2 mmol/L (3.5-5.1); Protein, Total 6.2 g/dL (6.4-8.2); Sodium Level 145 mmol/L (136-145)
[2018-05-30] MEDS: Lactulose 20 GM/30 ML UDC PO (16:28)
[2018-05-30 16:50] VITALS: BP 154/94; PULSE 63; RESP 18; O2SAT 97
[2018-05-30] MEDS: Ceftriaxone 1 GM/50 ML BAG IV (16:58)
--- NOTE | 2018-05-30 17:08 | PCM.HP.STD ---
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 Comment: old stroke not visible on MRI- [facility] neurology opinion (13) History of peptic ulcer Status: Chronic (14) Osteoarthritis Status: Chronic Qualifiers: (15) HTN (hypertension) Status: Chronic Qualifiers: History of Present Illness Date of Admission: 05/30/18 Chief Complaint: Confusion, decreased mentation and orientation for last 2 days The patient is a 58 year old M with history of BOOTHE with last admission about 3 years ago for hepatic encephalopathy on lactulose and Xifaxan was brought in by family member for increased confusion, disorientation, increased reaction time and slowness of thought for 2 days. Patient had seizure during that episode of hepatic encephalopathy. As per the , patient also has mild fever, moist cough and chills yesterday. Chest x-ray shows bibasilar infiltrates. [] Prelim labs in ER shows increased ammonia 110, total bilirubin 1.8, direct bilirubin 0.4 but normal enzymes and alkaline phosphatase. Of note, patient has history of Gilbert's syndrome and history of a stroke which mentally impaired his speech. 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) old stroke not visible on MRI- [facility] neurology opinion History of peptic ulcer (Chronic) Osteoarthritis (Chronic) HTN (hypertension) (Chronic) Allergies aspirin Adverse Reaction (Verified 05/30/18 15:08) Upset Stomach Home Medications: Ambulatory Orders Medication Instructions Recorded Lisinopril [Zestril] 40 mg PO DAILY 12/24/15 Lactulose [Chronulac] 30 gm PO DAILY 01/16/16 Spironolactone [Aldactone] 25 mg PO DAILY #30 tab 01/18/16 Rifaximin [Xifaxan] 550 mg PO DAILY 11/16/16 Surgical History: cholecystectomy, total hip arthroplasty, - - bilateral knee replacement, liver bx Psychiatric History: No pertinent psych hx Smoking Status: Never smoker - *Family History Maternal History Items: No pertinent history Paternal History Items: Diabetes Review of Systems Constitutional: Reports: Chills, Fever HEENT: Denies: Head Aches, Sinus Congestion, Sinus Drainage Cardiovascular: Denies: Chest Pain, Palpitations Respiratory: Reports: Cough, Sputum production. Denies: Shortness of breath at rest Gastrointestinal: Denies: Abdominal Pain, Nausea, Vomiting Genitourinary: Denies: Dysuria Musculoskeletal: Denies: Joint Pain, Joint Tenderness Skin: Reports: Rash, Skin Changes. Denies: Wounds Neurological: Denies: Numbness, Tingling, Focal weakness Psychiatric: Denies: Anxiety, Depression, Homicidal Ideations, Suicidal Ideations Hematologic/ Lymphatic: Denies: Easy Bruising, Easy Bleeding VTE Information - Inpt Only VTE Present on Admission: No VTE Mechan Device Prophylaxis: None VTE Pharm Prophylaxis ordered?: Yes - Physical Exam General: Alert, Oriented x3, Cooperative HEENT: Atraumatic, PERRLA, EOMI, Normocephalic Neck: Supple, No JVD, Negative Carotid Bruits Lungs: Clear to auscultation, No rhonchi, No wheeze, Diminished Cardiovascular: Regular rate, Regular Rhythm, Normal S1, Normal S2, No murmurs Abdomen: Bowel Sounds Present, Soft, Non Tender, Non-Distended Extremities: Capillary Refill Less than 3 Seconds, Edema Skin: Rash Present - Purplish to black discoloration of both legs, left worse than right with chronic venous stasis dermatitis Musculoskeletal: No Tenderness to Palpation of Joints or Extremities, Arthritic Changes Neurological: Cranial nerves II-XII grossly intact Psych/Mental Status: Normal Affect, Appropriate Vital Signs Temp Pulse Resp BP Pulse Ox 98.2 F 63 18 154/94 H 97 05/30/18 15:07 05/30/18 16:50 05/30/18 16:50 05/30/18 16:50 05/30/18 16:50 Weight: 320 lb Body Mass Index (BMI) 44.6 Finger Stick Blood Glucose 93 Laboratory Tests Past 24 Hrs 05/30/18 05/30/18 05/30/18 15:36 15:36 15:36 WBC 3.9 L RBC 4.04 L Hgb 13.4 Hct 39.5 L MCV 97.8 H MCH 33.2 H MCHC 33.9 RDW 13.1 RDW Differential 46.8 H Plt Count 106 L MPV 8.4 Immature Gran % (Auto) 0.000 Neut % (Auto) 49.0 Lymph % (Auto) 37.3 [place] % (Auto) 9.9 Eos % (Auto) 3.0 Baso % (Auto) 0.8 Absolute Neuts (auto) 1.9 L Absolute Lymphs (auto) 1.47 Total Counted Not Reportable PT 16.1 H INR 1.3 APTT 40.5 H Sodium 145 Potassium 4.2 Chloride 111 H Carbon Dioxide 25.0 Anion Gap 9 BUN 15 Creatinine 0.94 Estim Creat Clear Calc 91.23 Est GFR (MDRD) Af Amer 106 Est GFR (MDRD) Non-Af 88 BUN/Creatinine Ratio 16.0 Glucose 95 Calcium 8.6 Total Bilirubin 1.80 H Direct Bilirubin 0.46 H AST 29 ALT 13 L Alkaline Phosphatase 73 Ammonia Total Protein 6.2 L Albumin 2.7 L Globulin 3.5 05/30/18 15:36 WBC RBC Hgb Hct MCV MCH MCHC RDW RDW Differential Plt Count MPV Immature Gran % (Auto) Neut % (Auto) Lymph % (Auto) [place] % (Auto) Eos % (Auto) Baso % (Auto) Absolute Neuts (auto) Absolute Lymphs (auto) Total Counted PT INR APTT Sodium Potassium Chloride Carbon Dioxide Anion Gap BUN Creatinine Estim Creat Clear Calc Est GFR (MDRD) Af Amer Est GFR (MDRD) Non-Af BUN/Creatinine Ratio Glucose Calcium Total Bilirubin Direct Bilirubin AST ALT Alkaline Phosphatase Ammonia 110.0 H Total Protein Albumin Globulin Assessment/Plan All Active Problems Hepatic encephalopathy (Acute) Aspiration pneumonia (Acute) Acute hepatic encephalopathy (Acute) Cellulitis (Resolved) Chest pain (Resolved) Cholecystitis (Resolved) Hepatic encephalopathy (Resolved) Hyperammonemia (Resolved) The patient is a 58 year old M with history of BOOTHE with last admission about 3 years ago for hepatic encephalopathy on lactulose and Xifaxan was brought in by family member for increased confusion, disorientation, increased reaction time and slowness of thought for 2 days. Patient had seizure during that episode of hepatic encephalopathy. As per the , patient also has mild fever, moist cough and chills yesterday. Chest x-ray shows bibasilar infiltrates. [] Prelim labs in ER shows increased ammonia 110, total bilirubin 1.8, direct bilirubin 0.4 but normal enzymes and alkaline phosphatase. Of note, patient has history of Gilbert's syndrome and history of a stroke which mentally impaired his speech. Patient further said sometimes he aspirates when he tries to eat fast 1. Altered mental status, most probably secondary to metabolic encephalopathy due to BOOTHE with history of hepatic encephalopathy without coma: The patient is being admitted on regular [facility] floor. IV fluid normal saline. On lactulose and Xifaxan. The patient had last CT abdomen in July 2017 which shows normal liver, normal [place] extrahepatic very system, normal spleen and normal pancreas but patient has thrombocytopenia, WBC count in lower range, 3.9 thousand. The patient was advised not to drive. 2. SIRS (mild fever, leukopenia) probably secondary to bibasilar Aspiration pneumonia: Lactic acid is ordered. Patient received Rocephin and azithromycin in ER which is changed to Unasyn. Speech/swallow therapy evaluation tomorrow a.m. and diet recommendation as per speech therapist. Sputum culture and urinary antigens ordered. Mucinex, chest physiotherapy and incentive spirometry. Bronchodilator as needed. 3. Chronic venous stasis dermatitis: Leg elevation. Need corporate law specialist as an outpatient. Calmoseptine ointment 3 times daily 4. Other comorbidities include old stroke with residual dysarthria/aphasia, hypertension duodenal ulcer with history of rectal bleed, obstructive sleep apnea, GERD and morbid obesity: Home medication reconciliation done. Multiple comorbidities complicates the present care and expect delayed recovery. PT, OT and speech evaluation ordered. Code Visit Inpatient E&M: 38247 Init Hosp L3
[2018-05-30 17:45] VITALS: BMI 44.6
[2018-05-30 17:48] VITALS: BMI 45.1
[2018-05-30 17:49] VITALS: BP 141/78; PULSE 59; RESP 16; TEMP 36.6; O2SAT 99
[2018-05-30] MEDS: 0.9% Normal Saline 1,000 ML 100 ML IV (18:08)
[2018-05-30 19:09] LABS: Color, Urine Yellow (Yellow); Glucose, Dipstick Normal (Normal); Ketone-Dipstick Negative (Negative); Leukocyte Esterase-Dipstick Negative /ul (Negative); Nitrite-Dipstick Negative (Negative); Occult Blood-Urine 10 /ul (Negative); Protein-Dipstick Negative (Negative); Specific Gravity, Urine 1.015 (1.002-1.030); Urine Bilirubin Dipstick Negative (Negative); Urine Clarity Clear (Clear); Urine Urobilinogen 4 mg/dl (Normal)
--- NOTE | 2018-05-30 19:16 | NURSING ---
This RN called [facility] pharmacy in [place] to verify home meds- notified that only med filled there was xifaxan and that patient is to be taking it BID. Patient reported that he has been only taking it daily before home med list checked.
[2018-05-30 19:30] VITALS: O2SAT 97
[2018-05-30 21:00] VITALS: BP 134/69; PULSE 67; RESP 16; TEMP 36.6; O2SAT 95
[2018-05-30] MEDS: guaiFENesin 1,200 MG Tablet 1200 MG PO (21:49)
[2018-05-30] MEDS: rifAXIMin 550 MG Tablet PO (21:49)
[2018-05-31] MEDS: Lactulose 20 GM/30 ML UDC 30 GM PO ×4 (00:14→17:32)
[2018-05-31 03:30] VITALS: BP 129/69; PULSE 72; RESP 16; TEMP 35.8; O2SAT 93
[2018-05-31 03:43] VITALS: O2SAT 93
[2018-05-31 05:48] LABS: Absolute Lymphocyte Count 1.48 X10^3/ul (0.83-4.51); Absolute Neutrophil Count 1.7 X10^3/uL (2.0-7.7); Basophil# 0.04 X10^3/uL; Eosinophil# 0.22 X10^3/uL; Eosinophils% 5.6 % (0-5); Hematocrit 38.7 % (40-54); Hemoglobin 13.2 g/dl (13.0-16.5); Lymphocyte # 1.48 X10^3/ul (4.0); Lymphocyte % 37.9 % (19-41); Mean Corp Hgb Conc 34.1 g/gl (32-36); Mean Corpuscular Hgb 33.6 pg (27.0-32.0); Mean Corpuscular Volume 98.5 fL (80-94); Mean Platelet Vol. 8.4 fl (6.2-12.0); Monocyte# 0.51 X10^3/uL; Monocyte% 13.1 % (0-10); Neutrophil # 1.65 X10^3/uL (2.7-7.7); Neutrophil % 42.4 % (47-70); Platelet Count 112 K/mm3 (150-450); RBC Distribution Width CV 12.7 % (11.6-14.6); RBC Distribution Width SD 44.9 fl (35.1-43.9); Red Blood Count 3.93 M/mm3 (4.6-6.2); White Blood Count 3.9 K/mm3 (4.4-11.0)
[2018-05-31 05:49] LABS: POSITIVE COUNT NO; POSITIVE DIFFERENTIAL NO; POSITIVE MORPHOLOGY NO
[2018-05-31 06:08] LABS: Anion Gap 4 (5-15); BUN 14 mg/dL (7-18); BUN/Creat Ratio 18.1 RATIO (10-20); Calcium,Total 8.3 mg/dL (8.5-10.1); Chloride 112 mmol/L (98-107); Creatinine, Serum 0.77 mg/dL (0.70-1.30); EST Glomerular Filtration Rate 110 mL/min (>60); Est Glom Filt Rate - Afr Amer 133 mL/min (>60); Estimated Creatinine Clearance 111.37 ml/min; Glucose 81 mg/dL (74-106); Potassium 4.3 mmol/L (3.5-5.1); Sodium Level 145 mmol/L (136-145)
--- NOTE | 2018-05-31 08:40 | PCM.PN.HOSP ---
Subjective: Patient is a 55-year-old gentleman admitted with changes in his mental status.. He had also developed as well as nonproductive cough and chills prior to being admitted. Assessment was consistent with acute hepatic encephalopathy. Chest x-ray also demonstrated bilateral infiltrate and assessment of suspected aspiration pneumonia was therefore made admitted to regular nursing floor for further management 05/31/2018: Patient seen complains of significant loose bowel movement. Of note patient is on lactulose Objective: GENERAL: cooperative HEENT: Clear conjunctiva, NECK; supple, normal thyroid, CHEST: Diminished to auscultation bilaterally, HEART: Regular S1 S2, no audible murmurs ABDOMEN: soft, non-tender, normoactive bowel sounds, RECTAL: deferred EXTREMITIES: Chronic stasis dermatitis left lower extremity [employer]: Awake, oriented to place and person, no lateralizing signs. SKIN: Chronic stasis dermatitis left lower extremity Vitals/I&O's: Vital Signs Temp Pulse Resp BP Pulse Ox 96.4 F L 72 16 129/69 H 93 05/31/18 03:30 05/31/18 03:30 05/31/18 03:30 05/31/18 03:30 05/31/18 03:43 Oxygen Delivery Method Room Air Weight: 146.9 kg Body Mass Index (BMI) 45.1 Intake and Output for Last 24 Hours 05/29/18 05/30/18 05/31/18 23:59 23:59 23:59 Intake Total 1512 / 1512 Balance 1512 / 1512 Microbiology Past 72 Hours 05/30/18 18:15 Urine, Clean Catch Streptococcus pneumoniae Antigen (M - Final 05/30/18 18:15 Urine, Clean Catch Legionella Antigen - Final Laboratory Results 05/30/18 18:15: Urine Color Yellow, Urine Clarity Clear, Urine pH 6.0, Ur Specific [place] 1.015, Urine Protein Negative, Urine Glucose (UA) Normal, Urine Ketones Negative, Urine Occult Blood 10 H, Urine Nitrite Negative, Urine Bilirubin Negative, Urine Urobilinogen 4 H, Ur Leukocyte Esterase Negative 05/31/18 05:30: WBC 3.9 L, RBC 3.93 L, Hgb 13.2, Hct 38.7 L, MCV 98.5 H, MCH 33.6 H, MCHC 34.1, RDW 12.7, RDW Differential 44.9 H, Plt Count 112 L, MPV 8.4, Immature Gran % (Auto) 0.000, Neut % (Auto) 42.4 L, Lymph % (Auto) 37.9, [place] % (Auto) 13.1 H, Eos % (Auto) 5.6 H, Baso % (Auto) 1.0, Absolute Neuts (auto) 1.7 L, Absolute Lymphs (auto) 1.48, Total Counted Not Reportable 05/31/18 05:30: Sodium 145, Potassium 4.3, Chloride 112 H, Carbon Dioxide 29.0, Anion Gap 4 L, BUN 14, Creatinine 0.77, Estim Creat Clear Calc 111.37, Est GFR (MDRD) Af Amer 133, Est GFR (MDRD) Non-Af 110, BUN/Creatinine Ratio 18.1, Glucose 81, Calcium 8.3 L Current Medications Acetaminophen (Tylenol) 650 mg PO Q4H PRN PRN PRN Reason: Fever/pain/headache Albuterol Sulfate (Ventolin Aerosols) 2.5 mg INHALATION Q2H PRN PRN PRN Reason: SHORTNESS OF BREATH Bisacodyl (Dulcolax) 10 mg RECTAL DAILY PRN PRN PRN Reason: Constipation Docusate Sodium (Colace) 200 mg PO BID PRN PRN PRN Reason: Constipation Guaifenesin (Mucinex) 1,200 mg PO BID [facility] Last Admin: 05/30/18 21:49 Dose: 1,200 mg Ampicillin Sodium/Sulbactam (Sodium 3 gm/ Sodium Chloride) 112 mls @ 150 mls/hr IV Q6H [facility] Last Admin: 05/31/18 05:50 Dose: 150 mls/hr Lactulose (Chronulac, Cephulac) 30 gm PO Q6H [facility] Last Admin: 05/31/18 05:50 Dose: 30 gm Lisinopril (Zestril) 40 mg PO DAILY [facility] Magnesium Hydroxide (Milk Of Magnesia) 30 ml PO DAILY PRN PRN PRN Reason: Constipation Morphine Sulfate () 1 - 2 mg IV Q4H PRN PRN PRN Reason: SEVERE PAIN (6-10/10) Ondansetron HCl (Zofran) 4 mg IV Q8H PRN PRN PRN Reason: NAUSEA Oxycodone HCl (Oxyir) 5 mg PO Q4H PRN PRN PRN Reason: Moderate Pain (pain scale 4-5) Rifaximin (Xifaxan) 550 mg PO BID [facility] Last Admin: 05/30/18 21:49 Dose: 550 mg Sodium Chloride () 5 - 30 ml IV UD PRN PRN Reason: SALINE FLUSH Spironolactone (Aldactone) 25 mg PO DAILY [facility] Medical Necessity - Tobacco Use Smoking Status: Never smoker Assessment/Plan All Active Problems Hepatic encephalopathy (Acute) Aspiration pneumonia (Acute) Acute hepatic encephalopathy (Acute) Cellulitis (Resolved) Chest pain (Resolved) Cholecystitis (Resolved) Hepatic encephalopathy (Resolved) Hyperammonemia (Resolved) Patient is a 55-year-old gentleman admitted with changes in his mental status.. He had also developed as well as nonproductive cough and chills prior to being admitted. Assessment was consistent with acute hepatic encephalopathy. Chest x-ray also demonstrated bilateral infiltrate and assessment of suspected aspiration pneumonia was therefore made admitted to regular nursing floor for further management 1. Acute encephalopathy secondary to hepatic encephalopathy patient had elevated ammonia level on admission. Patient has history of non-alcoholic steatohepatitis with subsequent development of cirrhosis. Patient is on lactulose and rifaximin resumed with dose adjustment as needed. 2. Suspected aspiration pneumonia: Possible prostate and patient's hepatic encephalopathy managed with Unasyn 3. Chronic liver disease secondary to non-alcoholic steatohepatitis with subsequent development of cirrhosis. Patient is on lactulose resumed 4. Hypertension-blood pressure controlled, home medications continued with dose adjustment as needed 5. Obesity obesity with a BMI of 45.2 lifestyle modification including weight loss advised 6. GERD 7. Osteoarthritis 8. Stasis dermatitis 9. History of bleeding peptic ulcer 10. Obstructive sleep apnea patient is on CPAP at home 11. DVT prophylaxis-SCD's Clinical Impression(s) from Imaging Studies Chest X-Ray 05/30/18 15:33 IMPRESSION: Bibasilar infiltrates. Follow-up is recommended. Electronically Signed: Luisito Mahmood MD at 15:49 EDT Tel [phone], Service support , Active Medications Acetaminophen (Tylenol) 650 mg PO Q4H PRN PRN PRN Reason: Fever/pain/headache Albuterol Sulfate (Ventolin Aerosols) 2.5 mg INHALATION Q2H PRN PRN PRN Reason: SHORTNESS OF BREATH Bisacodyl (Dulcolax) 10 mg RECTAL DAILY PRN PRN PRN Reason: Constipation Docusate Sodium (Colace) 200 mg PO BID PRN PRN PRN Reason: Constipation Guaifenesin (Mucinex) 1,200 mg PO BID [facility] Last Admin: 05/30/18 21:49 Dose: 1,200 mg Ampicillin Sodium/Sulbactam (Sodium 3 gm/ Sodium Chloride) 112 mls @ 150 mls/hr IV Q6H [facility] Last Admin: 05/31/18 05:50 Dose: 150 mls/hr Lactulose (Chronulac, Cephulac) 30 gm PO Q6H [facility] Last Admin: 05/31/18 05:50 Dose: 30 gm Lisinopril (Zestril) 40 mg PO DAILY [facility] Magnesium Hydroxide (Milk Of Magnesia) 30 ml PO DAILY PRN PRN PRN Reason: Constipation Morphine Sulfate () 1 - 2 mg IV Q4H PRN PRN PRN Reason: SEVERE PAIN (6-10/10) Ondansetron HCl (Zofran) 4 mg IV Q8H PRN PRN PRN Reason: NAUSEA Oxycodone HCl (Oxyir) 5 mg PO Q4H PRN PRN PRN Reason: Moderate Pain (pain scale 4-5) Rifaximin (Xifaxan) 550 mg PO BID [facility] Last Admin: 05/30/18 21:49 Dose: 550 mg Sodium Chloride () 5 - 30 ml IV UD PRN PRN Reason: SALINE FLUSH Spironolactone (Aldactone) 25 mg PO DAILY [facility] Code Visit Inpatient E&M: 33951 [facility] Hosp L3
[2018-05-31 09:04] VITALS: BP 128/73; PULSE 61; RESP 18; TEMP 36.3; O2SAT 98
[2018-05-31] MEDS: rifAXIMin 550 MG Tablet PO ×2 (09:12→20:08)
[2018-05-31] MEDS: Lisinopril 40 MG Tablet PO (09:12)
[2018-05-31] MEDS: Spironolactone 25 MG Tablet PO (09:12)
[2018-05-31] MEDS: guaiFENesin 1,200 MG Tablet 1200 MG PO ×2 (09:12→20:08)
[2018-05-31 09:17] VITALS: O2SAT 96
--- NOTE | 2018-05-31 12:07 | CASEMGMT ---
See RN ISMAEL Assess Link: D/C Plan: Home. Intro role to CARLA GUEVARA. Pt sitting up in bed, @ bedside. Pt and willing to participate in assessment. Pt is independent @ home and requires no DME. Pt and state pt is @ his baseline and they deny having any needs at this time. Pt and wish for pt to discharge home. Pt states does not have Adv Directives and decline wanting any further information on this. CM to follow for discharge planning needs that may arise. Saumya DÍAZN CARLA CM
[2018-05-31 14:52] VITALS: BP 108/58; PULSE 66; RESP 18; TEMP 36.9; O2SAT 99
[2018-05-31 19:57] VITALS: BP 142/54; PULSE 63; RESP 18; TEMP 36.7; O2SAT 97
[2018-06-01 01:47] VITALS: BP 134/65; PULSE 61; RESP 18; TEMP 36.7; O2SAT 96
[2018-06-01] MEDS: Lactulose 20 GM/30 ML UDC 30 GM PO (05:16)
[2018-06-01 07:36] VITALS: O2SAT 95
--- NOTE | 2018-06-01 08:29 | PCM.DC ---
You will use the following diet at home:: Regular Your food should be the consistency of: Regular Allergies/Adverse Reactions: Allergies aspirin Adverse Reaction (Verified 05/30/18 15:08) Upset Stomach Medications to take at Discharge Lisinopril [Zestril] 40 mg PO DAILY 12/24/15 Lactulose [Chronulac] 30 gm PO DAILY 01/16/16 Rifaximin [Xifaxan] 550 mg PO BID 11/16/16 Amoxicillin/Potassium Clav [Augmentin 875-125 Tablet] 1 ea PO BID #14 tab 06/01/18 Guaifenesin [Mucinex] 1,200 mg PO BID #14 tab 06/01/18 The following prescriptions were given: Amoxicillin/Potassium Clav [Augmentin 875-125 Tablet] 1 ea PO BID #14 tab Guaifenesin [Mucinex] 1,200 mg PO BID #14 tab Primary Care Physician: Pedro Pablo Broussard III, MD [Primary Care Provider] - Please follow up with your Primary Care Physician in: [place] 5-7 DAYS Test Results: Test results from this visit will be discussed in further detail at your follow-up appointment, if applicable. Proposed Discharge Date: 06/01/18
--- NOTE | 2018-06-01 08:32 | PCM.DC.SUM ---
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 Follow-up is recommended. Electronically Signed: Luisito Mahmood MD at 15:49 EDT Tel [phone], Service support , Operations: None Summary of Care Provided: Patient is a 55-year-old gentleman admitted with changes in his mental status.. He had also developed as well as nonproductive cough and chills prior to being admitted. Assessment was consistent with acute hepatic encephalopathy. Chest x-ray also demonstrated bilateral infiltrate and assessment of suspected aspiration pneumonia was therefore made admitted to regular nursing floor for further management 1. Acute encephalopathy secondary to hepatic encephalopathy patient had elevated ammonia level on admission. Patient has history of non-alcoholic steatohepatitis with subsequent development of cirrhosis. Patient is on lactulose and rifaximin resumed with dose adjustment as needed. 2. Suspected aspiration pneumonia: Possible prostate and patient's hepatic encephalopathy managed with Unasyn patient was discharged home on Augmentin 3. Chronic liver disease secondary to non-alcoholic steatohepatitis with subsequent development of cirrhosis. Patient is on lactulose resumed 4. Hypertension-blood pressure controlled, home medications continued with dose adjustment as needed 5. Obesity obesity with a BMI of 45.2 lifestyle modification including weight loss advised 6. GERD 7. Osteoarthritis 8. Stasis dermatitis 9. History of bleeding peptic ulcer 10. Obstructive sleep apnea patient is on CPAP at home 11. DVT prophylaxis-SCD's Discharge Diet: No Restrictions Home Medications: Medications to take at Discharge Lisinopril [Zestril] 40 mg PO DAILY 12/24/15 Lactulose [Chronulac] 30 gm PO DAILY 01/16/16 Rifaximin [Xifaxan] 550 mg PO BID 11/16/16 Amoxicillin/Potassium Clav [Augmentin 875-125 Tablet] 1 ea PO BID #14 tab 06/01/18 Guaifenesin [Mucinex] 1,200 mg PO BID #14 tab 06/01/18 Following Prescrptions Were Given to Patient: Amoxicillin/Potassium Clav [Augmentin 875-125 Tablet] 1 ea PO BID #14 tab Guaifenesin [Mucinex] 1,200 mg PO BID #14 tab Primary Care Physician: Pedro Pablo Broussard III, MD [Primary Care Provider] - Please follow up with your Primary Care Physician in: [place] 5-7 DAYS Disposition: Home Minutes spent on discharge:: 35 Patient Condition:: Stable Medical Necessity - Tobacco Use Smoking Status: Never smoker Meaningful Use Info Meaningful Use Diagnoses (Choose all that apply): None applicable Code Visit Inpatient E&M: 64103 Disch Hosp
[2018-06-01 08:56] VITALS: BP 123/53; PULSE 63; RESP 18; TEMP 36.8; O2SAT 95
[2018-06-01] MEDS: guaiFENesin 1,200 MG Tablet 1200 MG PO (09:05)
[2018-06-01] MEDS: rifAXIMin 550 MG Tablet PO (09:05)
[2018-06-01] MEDS: Spironolactone 25 MG Tablet PO (09:05)
[2018-06-01] MEDS: Lisinopril 40 MG Tablet PO (09:05)
[2018-06-01 12:56] VITALS: BP 143/66; PULSE 77; RESP 18; O2SAT 95
== END 2018-06-01 12:57 | disposition home or self-care (01) | DRG 441 ==
LOC: ED 16:14 → MS2 17:40
PROVIDERS: Admitting Provider Internal Medicine; Emergency Provider Emergency Medicine; Family Provider Family Medicine; PCP Family Medicine; Visit Provider Internal Medicine
DX: K72.00 Acute and subacute hepatic failure without coma (principal); J69.0 Pneumonitis due to inhalation of food and vomit; Z68.42 Body mass index [BMI] 45.0-49.9, adult; I87.2 Venous insufficiency (chronic) (peripheral); I69.322 Dysarthria following cerebral infarction; I69.320 Aphasia following cerebral infarction; E66.01 Morbid (severe) obesity due to excess calories; K75.81 Nonalcoholic steatohepatitis (NASH); K74.60 Unspecified cirrhosis of liver; I10 Essential (primary) hypertension; M19.90 Unspecified osteoarthritis, unspecified site; G47.33 Obstructive sleep apnea (adult) (pediatric); Z87.11 Personal history of peptic ulcer disease; K21.9 Gastro-esophageal reflux disease without esophagitis
CPT/HCPCS: 36415; 71045; 80048; 80076; 81002; 82140; 85025; 85610; 85730; 87040; 87070; 87205; 87449; 92507; 92523; 93005; 94667; 97166; 99284; J7030; A4216; J0295

== ENCOUNTER 2018-08-29 11:15 | Observation (INO) | payer MEDICARE, SELFPAY ==
[2018-08-29] VITALS (10 sets, daily range): BP systolic 116–138; BP diastolic 63–78; PULSE 65–77; RESP 16–18; TEMP 36.7–37; O2SAT 93–100; BMI 43.2; BMI 43.5; BMI 43.6
[2018-08-29 11:48] LABS: Absolute Lymphocyte Count 1.84 X10^3/ul (0.83-4.51); Absolute Neutrophil Count 2.2 X10^3/uL (2.0-7.7); Basophil# 0.04 X10^3/uL; Basophil% 0.8 % (0-1); Eosinophil# 0.15 X10^3/uL; Eosinophils% 3.1 % (0-5); Hematocrit 40.3 % (40-54); Lymphocyte # 1.84 X10^3/ul (4.0); Lymphocyte % 37.7 % (19-41); Mean Corp Hgb Conc 34.7 g/gl (32-36); Mean Corpuscular Hgb 33.6 pg (27.0-32.0); Mean Corpuscular Volume 96.6 fL (80-94); Mean Platelet Vol. 8.2 fl (6.2-12.0); Monocyte# 0.67 X10^3/uL; Monocyte% 13.7 % (0-10); Neutrophil # 2.17 X10^3/uL (2.7-7.7); Neutrophil % 44.5 % (47-70); POSITIVE COUNT NO; POSITIVE DIFFERENTIAL NO; POSITIVE MORPHOLOGY NO; Platelet Count 115 K/mm3 (150-450); RBC Distribution Width CV 12.8 % (11.6-14.6); RBC Distribution Width SD 44.1 fl (35.1-43.9); Red Blood Count 4.17 M/mm3 (4.6-6.2); White Blood Count 4.9 K/mm3 (4.4-11.0)
[2018-08-29 12:01] LABS: BUN 15 mg/dL (7-18); Creatinine, Serum 0.83 mg/dL (0.70-1.30); EST Glomerular Filtration Rate 101 mL/min (>60); Estimated Creatinine Clearance 106.48 ml/min; Glucose 63 mg/dL (74-106)
[2018-08-29 12:02] LABS: ALB/GLOB Ratio 0.8 RATIO (0.9-2.4); AST(SGOT) 30 U/L (15-37); Alanine Aminotransfer ALT/SGPT 15 U/L (16-61); Albumin, Serum 2.7 g/dL (3.2-5.0); Alkaline Phosphatase 88 U/L (45-117); Anion Gap 7 (5-15); BUN/Creat Ratio 18.1 RATIO (10-20); Calcium,Total 8.2 mg/dL (8.5-10.1); Chloride 111 mmol/L (98-107); Est Glom Filt Rate - Afr Amer 122 mL/min (>60); Globulin 3.6 g/dL (2.2-4.2); Potassium 3.9 mmol/L (3.5-5.1); Protein, Total 6.3 g/dL (6.4-8.2); Sodium Level 145 mmol/L (136-145)
[2018-08-29] MEDS: 0.9% Normal Saline 1,000 ML 150 ML IV (12:16)
--- NOTE | 2018-08-29 12:24 | EKGRS_ITS ---
Test Reason : Blood Pressure : / mmHG Vent. Rate : 060 BPM Atrial Rate : 060 BPM P-R Int : 162 ms QRS Dur : 118 ms QT Int : 444 ms P-R-T Axes : 012 003 016 degrees QTc Int : 444 ms Normal sinus rhythm Left ventricular hypertrophy with QRS widening Abnormal ECG Confirmed by LUCIEN ASHBY, EDISON ([id number]), online content editor CECI CARTAGENA ([id number]) on 09/01/2018 2:46:58 PM Referred By: SARKIS Confirmed By:EDISON MCGRAW MD
--- NOTE | 2018-08-29 13:18 | ED.DCSUM_ITS ---
- ER Visit Summary Date of Service: 08/29/18 Chief Complaint: [Abnormal labs and chest pain] History of Present Illness: The patient is a 58 M [presents to the emergency department via EMS from home with complaint of abnormal labs. Patient apparently had a ammonia level drawn last week and was elevated at 135. Patient also states that he has been having intermittent chest discomfort over the last several days with activity and exertion. He has had some mild dyspnea. No radiation of the pain. He said no nausea or vomiting. Patient has not had discomfort like this before. Patient does have a history of Ricci and hepatic encephalopathy.] Physical Examination: [HEENT-PERRLA, EOMI. Cranial nerves II through XII grossly intact. TMs clear. Mucous membranes moist. No adenopathy. Patient speech somewhat thick and difficult to understand which is a chronic finding for him. Cardiovascular-regular rate and rhythm without murmur or ectopy Lungs-clear to auscultation, chest wall stable without crepitus or subcu emphysema Abdomen-normoactive bowel sounds, soft, nontender, no rebound or rigidity, no peritoneal signs. Extremities-intact ?4, normal range of motion, normal pulses, atraumatic] Test Results: [EKG on arrival shows sinus rhythm with a ventricular rate of 60 bpm with some LVH noted. Patient had a CBC with differential that was unremarkable other than a low platelet count of 115. Chemistries unremarkable. Ammonia was 68. Troponin was 0.017.] Emergency Department Course and Treatment: [Patient received 1 dose of Plavix in the emergency department] Treatment Plan: [Admit for further workup and evaluation of his chest pain] Disposition: [Admit] Impression: [Chest pain-rule out acute coronary syndrome] This note was generated with [employer] dictation software. It may contain incorrect words, spelling, and punctuation that were not noted in review of the chart prior to signing ED Disposition - Plan for ED Patient: Chief Complaint: Abn Labs Referrals: Pedro Pablo Broussard III, MD [Primary Care Provider] -
--- NOTE | 2018-08-29 13:35 | NURSING ---
DR ELKINS FOR DR FORD
--- NOTE | 2018-08-29 13:39 | PCM.HP.STD ---
Problem List (1) Chest pain Status: Acute Qualifiers: Ischemic chest pain type: unspecified angina pectoris type (2) Hepatic encephalopathy Status: Chronic (3) GERD (gastroesophageal reflux disease) Status: Chronic Qualifiers: Esophagitis presence: esophagitis presence not specified Qualified Code(s): K21.9 - Gastro-esophageal reflux disease without esophagitis (4) HTN (hypertension) Status: Chronic Qualifiers: Hypertension type: essential hypertension (5) SANTHOSH (obstructive sleep apnea) Status: Chronic (6) TIA (transient ischemic attack) Status: Chronic Qualifiers: Transient cerebral ischemia type: unspecified Qualified Code(s): G45.9 - Transient cerebral ischemic attack, unspecified History of Present Illness Date of Admission: 08/29/18 Chief Complaint: Chest pain -2-3 day The patient is a 58 year old M with PMHx of hepatic encephalopathy secondary to BOOTHE, SANTHOSH, hypertension, chronic speech impairment(slurred speech), h/o TIA who comes in with complaints of chest rose on going for days. Patient was recently seen by his primary care doctor and was being treated for acute on chronic hepatic encephalopathy. His ammonia level was reportedly 110, improved to 68 today. He had been complaining of dull substernal chest pain, nonradiating, lasts for about 10 minutes, worse with ambulation, comes on and off, associated with some lightheadedness but no nausea or diaphoresis or shortness of breath. He called the ambulance today. Vitals in the ED with a temperature of 98.1F, blood pressure 134/64, heart rate of 72, respiratory 16, SPO2 95% on room air. Patient blood work showed white cell count of 4.9, hemoglobin 14.0, platelet 115, BMP was unremarkable, total bilirubin was 1.30, AST was 30, ALT was 15, ALP was 88, ammonia was 68 Past Medical History Past Medical History (Chronic Problems): Chronic Problems BOOTHE (nonalcoholic steatohepatitis) (Chronic) Hepatic encephalopathy (Chronic) Stasis dermatitis (Chronic) Morbid obesity with body mass index of 45.0-49.9 in adult (Chronic) GERD (gastroesophageal reflux disease) (Chronic) SANTHOSH (obstructive sleep apnea) (Chronic) Duodenal ulcer (Chronic) Rectal bleed (Chronic) TIA (transient ischemic attack) (Chronic) 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) old stroke not visible on MRI- [facility] neurology opinion History of peptic ulcer (Chronic) Osteoarthritis (Chronic) HTN (hypertension) (Chronic) Allergies aspirin Adverse Reaction (Verified 05/30/18 15:08) Upset Stomach Home Medications: Ambulatory Orders Medication Instructions Recorded Lisinopril [Zestril] 40 mg PO DAILY 12/24/15 Lactulose [Chronulac] 30 gm PO DAILY 01/16/16 Rifaximin [Xifaxan] 550 mg PO BID 11/16/16 Esomeprazole Magnesium 40 mg PO DAILY 08/29/18 Surgical History: cholecystectomy, total hip arthroplasty, - - bilateral knee replacement, liver bx Psychiatric History: No pertinent psych hx Lives: Spouse/ Significant Other Smoking Status: Never smoker Tobacco Use: Non-smoker Alcohol: None Drugs: None - *Family History Maternal History Items: No pertinent history Paternal History Items: Diabetes Review of Systems Constitutional: Denies: Anorexia, Chills, Fever, Weakness, Weight Change Eyes: Denies: Blurred vision, Cataracts, Conjunctivae Inflammation, Double vision HEENT: Denies: Difficulty Hearing, Difficulty Swallowing, Head Aches, Hearing Changes, Sinus Congestion, Sinus Drainage Cardiovascular: Denies: Chest Pain, Claudication, Orthopnea, Palpitations, Paroxysmal Noc. Dyspnea Respiratory: Denies: Cough, Hemoptysis, Shortness of breath at rest, Shortness of breath upon exertion, Sputum production Gastrointestinal: Denies: Abdominal Pain, Nausea, Vomiting Genitourinary: Denies: Dysuria Musculoskeletal: Denies: Joint Pain, Joint stiffness, Joint swelling, Joint Tenderness Skin: Denies: Rash, Wounds Neurological: Denies: Numbness, Tingling, Focal weakness Psychiatric: Denies: Anxiety, Depression, Homicidal Ideations, Suicidal Ideations Hematologic/ Lymphatic: Denies: Easy Bruising, Easy Bleeding VTE Information - Inpt Only VTE Present on Admission: No VTE Pharm Prophylaxis ordered?: Yes Patient Problems: Active and Suspected Problems Chest pain (Acute) - Physical Exam General: Alert, Oriented x3, Cooperative, No apparent distress, - - obese HEENT: Atraumatic, PERRLA, EOMI, Normocephalic Oral: Moist Mucosa Neck: Supple, No JVD, Negative Carotid Bruits Lungs: Clear to auscultation, Normal air movement Cardiovascular: Regular rate, Regular Rhythm, Normal S1, Normal S2, No murmurs Abdomen: Bowel Sounds Present, Soft, Non Tender, Distended, - - No palpable or ballotable organs, unable to appreciate ascites Extremities: No edema, - - Chronic right hyperpigmentation scarring from venous stasis Skin: - - See extremities Musculoskeletal: No Tenderness to Palpation of Joints or Extremities Neurological: Cranial nerves II-XII grossly intact, Neuro grossly intact, - - No flapping tremors Psych/Mental Status: Normal Affect, Appropriate Vital Signs Temp Pulse Resp BP Pulse Ox 98.1 F 66 16 134/74 H 94 08/29/18 11:18 08/29/18 12:17 08/29/18 12:17 08/29/18 12:17 08/29/18 12:17 Oxygen Delivery Method Room Air Weight: 144.424 kg Body Mass Index (BMI) 43.2 Finger Stick Blood Glucose 93 Laboratory Tests Past 24 Hrs 08/29/18 08/29/18 08/29/18 11:40 11:40 11:40 WBC 4.9 RBC 4.17 L Hgb 14.0 Hct 40.3 MCV 96.6 H MCH 33.6 H MCHC 34.7 RDW 12.8 RDW Differential 44.1 H Plt Count 115 L MPV 8.2 Immature Gran % (Auto) 0.200 Neut % (Auto) 44.5 L Lymph % (Auto) 37.7 Morris % (Auto) 13.7 H Eos % (Auto) 3.1 Baso % (Auto) 0.8 Absolute Neuts (auto) 2.2 Absolute Lymphs (auto) 1.84 Total Counted Not Reportable Sodium 145 Potassium 3.9 Chloride 111 H Carbon Dioxide 27.0 Anion Gap 7 BUN 15 Creatinine 0.83 Estim Creat Clear Calc 106.48 Est GFR (MDRD) Af Amer 122 Est GFR (MDRD) Non-Af 101 BUN/Creatinine Ratio 18.1 Glucose 63 L Calcium 8.2 L Total Bilirubin 1.30 H AST 30 ALT 15 L Alkaline Phosphatase 88 Ammonia 68.0 H Troponin I Total Protein 6.3 L Albumin 2.7 L Globulin 3.6 Albumin/Globulin Ratio 0.8 L 08/29/18 11:40 WBC RBC Hgb Hct MCV MCH MCHC RDW RDW Differential Plt Count MPV Immature Gran % (Auto) Neut % (Auto) Lymph % (Auto) Morris % (Auto) Eos % (Auto) Baso % (Auto) Absolute Neuts (auto) Absolute Lymphs (auto) Total Counted Sodium Potassium Chloride Carbon Dioxide Anion Gap BUN Creatinine Estim Creat Clear Calc Est GFR (MDRD) Af Amer Est GFR (MDRD) Non-Af BUN/Creatinine Ratio Glucose Calcium Total Bilirubin AST ALT Alkaline Phosphatase Ammonia Troponin I 0.017 Total Protein Albumin Globulin Albumin/Globulin Ratio Assessment/Plan All Active Problems Aspiration pneumonia (Acute) Chest pain (Acute) Acute hepatic encephalopathy (Acute) Cellulitis (Resolved) Chest pain (Resolved) Cholecystitis (Resolved) Hepatic encephalopathy (Resolved) Hyperammonemia (Resolved) 58 year old M with PMHx of hepatic encephalopathy secondary to BOOTHE, SANTHOSH, hypertension, chronic speech impairment(slurred speech), h/o TIA, 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 1. Acute chest pain, atypical, EKG shows no acute ST-T changes, troponins x1 normal, h/o GI bleed, ? Allergy to aspirin, given one dose of Plavix in ED Plan: Admit to PCU, monitor on telemetry, trend cardiac enzymes, stress test in am, ECHO 2. Acute on chronic hepatic encephalopathy, secondary to BOOTHE, ammonia is 68, this appears to be improving compared to previous where the values were 110 and 88 On rifaximin, lactulose, will continue the same 3. Hypertension, controlled, on lisinopril, continue same continue to monitor vitals 4. SANTHOSH, not on CPAP 5. Morbid obesity, BMI 43.6, diet and exercise is recommended 6. Thrombocytopenia, platelet count is 115, likely secondary to BOOTHE, will monitor 7. Chronic speech impairment, at baseline according to the , h/o TIA 8. Elevated bilirubin, appears to be at baseline, history of Gilbert's syndrome, will trend in am 9. DVT prophylaxis-Lovenox subcu Code Visit OBSV E&M: 76939 Initial observation care L3
[2018-08-29] MEDS: Clopidogrel Bisulfate 75 MG Tablet PO (13:44)
--- NOTE | 2018-08-29 14:41 | EKG12_ITS ---
Test Reason : Blood Pressure : / mmHG Vent. Rate : 070 BPM Atrial Rate : 070 BPM P-R Int : 152 ms QRS Dur : 112 ms QT Int : 396 ms P-R-T Axes : 000 004 019 degrees QTc Int : 427 ms Normal sinus rhythm Incomplete right bundle branch block Minimal voltage criteria for LVH, may be normal variant Borderline ECG When compared with ECG of 29-AUG-2018 14:54, MANUAL COMPARISON REQUIRED, DATA IS UNCONFIRMED Confirmed by LUCIEN ASHBY, EDISON ([id number]), society editor CECI CARTAGENA ([id number]) on 09/04/2018 2:06:22 PM Referred By: Confirmed By:EDISON MCGRAW MD
--- NOTE | 2018-08-29 14:41 | ECHOCS_ITS ---
Reason For Study: Chest Pain Procedure This was a 2D Doppler, Color Flow transthoracic echocardiogram. Contrast injection was performed. Exam performed portable in patient room. Left Ventricle Normal size and thickness. The estimated ejection fraction is 65 %. Stage 1 diastolic dysfunction. No regional wall motion abnormalities noted. Right Ventricle Moderately dilated right ventricle. Normal systolic function. Atria The left atrium is mildly enlarged. The right atrium is mildly enlarged. Normal atrial septum. Mitral Valve The mitral valve is structurally normal. No prolapse or stenosis seen. Tricuspid Valve Normal tricuspid valve. Trivial tricuspid valve insufficiency. Right ventricular systolic pressure estimated to be 24 mmHg. Aortic Valve Trisinus/trileaflet aortic valve. Pulmonic Valve The pulmonic valve is not well visualized. Great Vessels Normal aortic root. Normal arch. Normal inferior vena cava. Inferior vena cava collapse with sniff. Pericardium/Pleural No pericardial effusion. Medication Diluted definity 1ml given slow IV push to enhance endocardial definition. MMode/2D Measurements & Calculations LVIDd: 4.6 cm IVSd: 1.4 cm Ao root diam: 3.8 cm LVIDs: 3.5 cm LVPWd: 1.3 cm LA dimension: 3.7 cm FS: 23.4 % LAV(MOD-sp4): 71.2 ml LA A4 area: 23.7 cm2 RA A4 area: 24.3 cm2 Time Measurements MV dec time: 0.28 sec Doppler Measurements & Calculations MV E max kevin: 69.1 cm/sec Lat Peak E' Kevin: 15.2 cm/sec Med Peak E' Kevin: 7.2 cm/sec MV A max kevin: 77.3 cm/sec E/E' lat: 4.6 E/E' med: 9.6 MV E/A: 0.89 MV V2 max: 95.9 cm/sec MV P1/2t max kevin: 95.9 cm/sec Ao V2 max: 188.3 cm/sec MV max P.7 mmHg MV P1/2t: 122.0 msec Ao max P.2 mmHg MV V2 mean: 57.0 cm/sec MV dec slope: 230.2 cm/sec2 Ao V2 mean: 111.3 cm/sec MV mean P.5 mmHg MVA(P1/2t): 1.8 cm2 Ao mean P.9 mmHg MV V2 VTI: 36.4 cm Ao V2 VTI: 34.8 cm LV V1 max: 137.0 cm/sec PA V2 max: 81.6 cm/sec TR max kevin: 218.0 cm/sec LV V1 max P.5 mmHg TR max P.0 mmHg LV V1 mean P.2 mmHg LV V1 mean: 96.5 cm/sec LV V1 VTI: 29.5 cm Interpretation Summary The estimated ejection fraction is 65 %. Stage 1 diastolic dysfunction. Moderately dilated right ventricle. The left atrium is mildly enlarged. The right atrium is mildly enlarged. Trivial tricuspid valve insufficiency. Right ventricular systolic pressure estimated to be 24 mmHg. The study was technically difficult. Contrast injection was performed. There is no comparison study available. Ordering Physician: Jacqui Schneider Referring Physician: ERICKSON Broussard M.D. Performed By: Arnulfo Stratton RCS
[2018-08-29] MEDS: 0.9% NaCl Peripheral Flush Adult/Peds IV (21:44)
[2018-08-30] VITALS (10 sets, daily range): BP systolic 121–131; BP diastolic 59–65; PULSE 60–81; RESP 18–20; TEMP 36.4–36.8; O2SAT 94–95
[2018-08-30 00:08] LABS: Magnesium 1.8 mg/dL (1.6-2.6)
--- NOTE | 2018-08-30 04:00 | EKG12_ITS ---
Test Reason : Blood Pressure : / mmHG Vent. Rate : 061 BPM Atrial Rate : 061 BPM P-R Int : 160 ms QRS Dur : 120 ms QT Int : 436 ms P-R-T Axes : 009 017 026 degrees QTc Int : 438 ms Normal sinus rhythm Non-specific intra-ventricular conduction delay Borderline ECG When compared with ECG of 29-AUG-2018 21:40, MANUAL COMPARISON REQUIRED, DATA IS UNCONFIRMED Confirmed by LUCIEN ASHBY, EDISON ([id number]), greeting card editor CECI CARTAGENA ([id number]) on 09/04/2018 2:04:35 PM Referred By: Confirmed By:EDISON MCGRAW MD
[2018-08-30 04:01] LABS: Hematocrit 38.5 % (40-54); Mean Corp Hgb Conc 33.8 g/gl (32-36); Mean Corpuscular Hgb 33.2 pg (27.0-32.0); Mean Corpuscular Volume 98.5 fL (80-94); Mean Platelet Vol. 8.6 fl (6.2-12.0); Platelet Count 115 K/mm3 (150-450); RBC Distribution Width SD 45.6 fl (35.1-43.9); Red Blood Count 3.91 M/mm3 (4.6-6.2); White Blood Count 4.6 K/mm3 (4.4-11.0)
[2018-08-30 04:04] LABS: Scan Indicated on CBC? Y/N NO
[2018-08-30 04:07] LABS: International Normalized Ratio 1.3; Prothrombin Time (Protime)PT. 16.3 SECONDS (11.7-14.9)
[2018-08-30 04:08] LABS: Partial Thromboplast Time 40.5 Seconds (24.1-36.2)
[2018-08-30 04:11] LABS: ALB/GLOB Ratio 0.7 RATIO (0.9-2.4); AST(SGOT) 24 U/L (15-37); Alanine Aminotransfer ALT/SGPT 14 U/L (16-61); Albumin, Serum 2.5 g/dL (3.2-5.0); Alkaline Phosphatase 82 U/L (45-117); Anion Gap 7 (5-15); BUN 17 mg/dL (7-18); BUN/Creat Ratio 18.4 RATIO (10-20); Calcium,Total 7.8 mg/dL (8.5-10.1); Chloride 111 mmol/L (98-107); Cholesterol 133 mg/dL (200); Creatinine, Serum 0.92 mg/dL (0.70-1.30); EST Glomerular Filtration Rate 89 mL/min (>60); Est Glom Filt Rate - Afr Amer 108 mL/min (>60); Estimated Creatinine Clearance 96.06 ml/min; Globulin 3.4 g/dL (2.2-4.2); Glucose 79 mg/dL (74-106); High Density Lipoprotein 35 mg/dL; Potassium 4.2 mmol/L (3.5-5.1); Protein, Total 5.9 g/dL (6.4-8.2); Sodium Level 146 mmol/L (136-145); Triglycerides 46 mg/dL; Very Low Density Lipoprotein 9 mg/dL (5-40)
[2018-08-30] MEDS: 0.9% NaCl Peripheral Flush Adult/Peds IV (10:06)
--- NOTE | 2018-08-30 10:16 | STRESSREP_ITS ---
Stress Test Report Date: 04/29/2018 Procedure: Pharmacologic stress nuclear imaging study Indications: Chest pain Consent: Per the patient Procedure: The patient underwent pharmacologic (Regadenoson) evaluation with a peak heart rate of 94 beats per minute (58 predicted maximal heart rate) and a peak blood pressure of 138/64 mmHg. The baseline ECG demonstrated normal sinus rhythm. The peak pharmacologic ECG demonstrated no obvious ECG changes. There were no cardiac dysrhythmias pretest, during pharmacologic infusion, or recovery. There was no complaint of chest discomfort during pharmacologic infusion or recovery. The examination was discontinued secondary to completion of protocol. Impression: 1. Pharmacologic (Regadenoson) evaluation 2. Peak pharmacologic ECG with obvious ECG changes. 3. There were no cardiac dysrhythmias pretest, during pharmacologic infusion, or recovery. 4. Nuclear images pending Myocardial perfusion imaging study: Technique: The patient was injected with 13.8 millicuries of technetium 99m Cardiolite and subsequently rest SPECT Cardiolite nuclear imaging was obtained in the horizontal long, vertical long, and short axis views. The patient underwent pharmacologic (Regadenoson) evaluation with a peak heart rate of 94 beats per minute (58 % percent predicted maximal heart rate) and a peak blood pressure of 138/64 mmHg. The patient was injected with 44.5 millicuries of technetium 99m Cardiolite and subsequently stress SPECT Cardiolite nuclear imaging was obtained in the horizontal long, vertical long, and short axis views. A gated Cardiolite study at peak stress was obtained. Interpretation: Rest and stress SPECT Cardiolite nuclear imaging status post realignment, normalization, and attenuation correction demonstrate relative uniform tracer uptake and myocardial perfusion appearing within normal limits. There is end systolic thickening and brightening. The gated Cardiolite study demonstrates myocardial thickening and inward wall motion. The reported LVEF is 64 %. Impression: 1. Rest and stress SPECT Cardiolite nuclear imaging demonstrate relative uniform tracer uptake and myocardial perfusion appearing within normal limits. 2. The gated Cardiolite study reports an LVEF of 64 %. This note was generated with [employer] software. It may contain incorrect words, spelling, and punctuation that were not noted in checking the note before signing.
--- NOTE | 2018-08-30 13:44 | CT_ITS ---
STUDY: CT CHEST WITHOUT CONTRAST REASON FOR EXAM: Male, 58 years old. History of chest pain. Possible aspiration pneumonia. RADIATION DOSAGE (If Supplied By Facility): CTDIvol = ( 19.89 ) mGy, DLP = ( 695.84 ) mGycm TECHNIQUE: Transaxial imaging was performed without the administration of intravenous contrast material. Multiplanar coronal and sagittal images were reformatted. Individualized dose optimization techniques were used for this CT. COMPARISON: None. FINDINGS: Mild degree of increased markings at both lung bases likely worse on the left side. This may represent either atelectasis and/or scarring. There is no demonstrated pleural abnormality. There are calcifications of the coronary arteries. Normal mediastinum. Normal hilar regions. Normal unenhanced pulmonary arteries. Normal aorta arch and descending thoracic aorta. There are multi-level degenerative changes of the thoracic spine. There is circumferential wall thickening of the distal esophagus. Small hiatal hernia. Status post cholecystectomy. CT/Chest without Contrast IMPRESSION: Small hiatal hernia with circumferential wall thickening of the distal esophagus. Mild increased markings at the lung bases slightly worse on the left side. Electronically Signed: Luisito Mahmood MD at 14:42 EST Tel [phone], Service support ,
--- NOTE | 2018-08-30 15:53 | CHAPLAIN ---
Type of Pastoral Visit _x__ Initial Visit ___ Follow-up Visit ___ On-call Visit ___ General Patient Visit ___ Spiritual Assessment ___ Family Conference ___ Bereavement ___ Rapid Response ___ Code Blue ___ Other (describe below) Pastoral Care Referral From _x__ Patient ___ Family ___ Nurse ___ Physician ___ Film Processing Shift Supervisor ___ Healthcare Prof ___ Other (describe below) Sacrament/Intervention _x__ Active listening ___ Anointing ___ Hoahaoism ___ Bereavement ___ Communion ___ Nina exploration ___ _x__ Life review _x__ Prayer ___ Reconciliation ___ Sacrament of Sick ___ Supportive presence ___ Wedding ___ Other (describe below) Pastoral Comments spouse is with patient in room; spouse answers some of the questions due to difficulty of pt to speak clearing because of a previous health issue;
--- NOTE | 2018-08-30 15:55 | DCINST_ITS ---
- Discharge Diagnoses Current Active Problems: Current Active and Chronic Problems Chest pain (Acute) You will use the following diet at home:: No restrictions Your food should be the consistency of: Regular Your liquids should be the consistency of: Regular/Thin Discharge Activity: Return to Normal Activity Weight Bearing Status: Full weight bearing Allergies/Adverse Reactions: Allergies aspirin Adverse Reaction (Verified 05/30/18 15:08) Upset Stomach Medications to take at Discharge Lisinopril [Zestril] 40 mg PO DAILY 12/24/15 Lactulose [Chronulac] 30 gm PO DAILY 01/16/16 Rifaximin [Xifaxan] 550 mg PO BID 11/16/16 Esomeprazole Magnesium 40 mg PO DAILY 08/29/18 Primary Care Physician: Pedro Pablo Broussard III, MD [Primary Care Provider] - Please follow up with your Primary Care Physician in: in 2 weeeks Test Results: Test results from this visit will be discussed in further detail at your follow- up appointment, if applicable.
--- NOTE | 2018-09-01 09:34 | DS.PCM_ITS ---
Discharge Date and Diagnosis Date of Admission: 08/29/18 Date of Discharge: 08/30/18 - Primary Discharge Diagnosis #1 musculoskeletal chest pain #2 nonalcoholic steatohepatitis-chronic #3 morbid obesity #4 GERD #5 obstructive sleep apnea #6 cerebrovascular disease #7 hypertension - Secondary Discharge Diagnosis Chronic Problems BOOTHE (nonalcoholic steatohepatitis) (Chronic) Hepatic encephalopathy (Chronic) Stasis dermatitis (Chronic) Morbid obesity with body mass index of 45.0-49.9 in adult (Chronic) GERD (gastroesophageal reflux disease) (Chronic) SANTHOSH (obstructive sleep apnea) (Chronic) Duodenal ulcer (Chronic) Rectal bleed (Chronic) TIA (transient ischemic attack) (Chronic) 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 Workup in the emergency room included an EKG which was negative for ischemia, cardiac enzymes were unremarkable, chest x-ray was unremarkable. Patient was placed in observation status on PCU, cardiac enzymes were cycled and these remained normal. Patient underwent a nuclear stress test on 08/30/18 which was negative for reversible ischemia. He had an echocardiogram also performed on that date which did not show any abnormality. Finally, patient underwent a chest CT which showed no acute process. On 08/30/18, patient was seen and examined: Physical exam: On examination he appeared in good health and spirits. Patient is morbidly obese. Vital signs as documented. Skin warm and dry and without overt rashes. Neck without JVD. Lungs clear. Heart exam notable for regular rhythm, normal sounds and absence of murmurs, rubs or gallops. Abdomen unremarkable and without evidence of organomegaly, masses, or abdominal aortic enlargement. Extremities nonedematous. Neuro: Patient has a speech defect with no aphasia, cranial nerves II through XII are grossly intact. Psych: Patient is alert and oriented x3 and is appropriate On 08/30/18, patient was seen and examined felt to be in stable condition for discharge home. - Physical Exam Vital Signs Temp Pulse Resp BP Pulse Ox 98.3 F 75 20 H 131/62 H 95 11/14/18 13:47 08/30/18 15:12 08/30/18 13:54 08/30/18 13:47 08/30/18 13:54 Oxygen Delivery Method Room Air Weight: 145.785 kg Body Mass Index (BMI) 43.5 Finger Stick Blood Glucose 93 Intake and Output for Last 24 Hours 08/30/18 08/31/18 09/01/18 23:59 23:59 23:59 Intake Total 350 / 350 Balance 350 / 350 Discharge Activity: Return to Normal Activity Weight Bearing Status: Full weight bearing Home Medications: Medications to take at Discharge Lisinopril [Zestril] 40 mg PO DAILY 12/24/15 Lactulose [Chronulac] 30 gm PO DAILY 01/16/16 Rifaximin [Xifaxan] 550 mg PO BID 11/16/16 Esomeprazole Magnesium 40 mg PO DAILY 08/29/18 Primary Care Physician: Pedro Pablo Broussard III, MD [Primary Care Provider] - Please follow up with your Primary Care Physician in: in 2 weeeks Disposition: Home Minutes spent on discharge:: 30 Patient Condition:: Stable Medical Necessity - Tobacco Use Smoking Status: Never smoker Tobacco Use: Non-smoker Meaningful Use Info Meaningful Use Diagnoses (Choose all that apply): None applicable Code Visit OBSV E&M: 97346 Observation care discharge
== END 2018-08-30 15:54 | disposition home or self-care (01) ==
LOC: ED 11:45 → PCU 13:41
PROVIDERS: Hospitalist; Admitting Provider Internal Medicine; Emergency Provider Emergency Medicine; Family Provider Family Medicine; PCP Family Medicine; Visit Provider Internal Medicine
DX: R07.89 Other chest pain (principal); K75.81 Nonalcoholic steatohepatitis (NASH); E66.01 Morbid (severe) obesity due to excess calories; Z68.41 Body mass index [BMI] 40.0-44.9, adult; Z71.3 Dietary counseling and surveillance; G47.33 Obstructive sleep apnea (adult) (pediatric); K21.9 Gastro-esophageal reflux disease without esophagitis; I10 Essential (primary) hypertension; I69.322 Dysarthria following cerebral infarction; M19.90 Unspecified osteoarthritis, unspecified site; Z87.11 Personal history of peptic ulcer disease; Z79.899 Other long term (current) drug therapy; R06.00 Dyspnea, unspecified; K72.90 Hepatic failure, unspecified without coma; D69.6 Thrombocytopenia, unspecified; E80.4 Gilbert syndrome
CPT/HCPCS: 36415; 71250; 78452; 80053; 80061; 82140; 83735; 84484; 85025; 85027; 85610; 85730; 93005; 93017; 93306; 96361; 96365; 96366; 97162; 97165; 99218; 99285; A9500; J7030; Q9957; A4216; C8929; G0378; J2785

== ENCOUNTER 2019-02-19 13:02 | Emergency (ER) | payer MEDICARE, SELFPAY ==
[2019-02-19 13:03] VITALS: BP 161/69; PULSE 72; RESP 20; TEMP 36.3; O2SAT 97; BMI 41.8
[2019-02-19 13:32] VITALS: RESP 18; TEMP 36.3; O2SAT 97
--- NOTE | 2019-02-19 13:37 | EKG12_ITS ---
Test Reason : ABNORMAL LABS Blood Pressure : / mmHG Vent. Rate : 065 BPM Atrial Rate : 065 BPM P-R Int : 154 ms QRS Dur : 120 ms QT Int : 426 ms P-R-T Axes : 004 002 018 degrees QTc Int : 443 ms Normal sinus rhythm RSR' or QR pattern in V1 suggests right ventricular conduction delay Left ventricular hypertrophy with QRS widening Abnormal ECG Confirmed by TREVON BERNAL ([id number]), acquisitions editor RACHEL SANTAMARIA ([id number]) on 02/23/2019 10:58:47 AM Referred By: MAMTA Confirmed By:TREVON BERNAL
--- NOTE | 2019-02-19 13:50 | ED.VISSUMM ---
- ER Visit Summary Date of Service: 02/19/19 Chief Complaint: [] Concern that ammonia level is high History of Present Illness: The patient is a 59 M [] hx of liver failure chronically, hepatic encephalopathy, nba-[id number]-fgkejki fatty liver on lactulose, ammonia levels run about 160 or more per the , the patient's been his usual state of health he has had no fever no cough no chest pain no abdominal pain he actually got up today did his normal routine activities, and he went to the fitness center was able to do his aquatic exercise without difficulty as he was getting out he felt some weakness in his legs the is concerned is related to his ammonia level being high and he was brought to the emergency department. He is taking his lactulose if there is a second medicine he supposed to be taking with that medicine is quite expensive and is currently pending to be sent to them from a pharmacy in [place] At patient at this time has no complaints he is awake he is alert he knows his name he can tell me his address with 3 detail, he knows his , he describes all of his activities today, he denies being confused and denies any symptoms, he was able to walk around the emergency department without difficulty His cirrhosis is related to fatty liver and otherwise his health conditions have been stable Physical Examination: [] Vital signs within normal range General, no distress resting comfortably, he is a very large gentleman, he has a heavy speech which of prior stroke but per the the speech pattern is normal he is completely oriented x3 able to provide all details of today and he has no complaints HEENT is generally unremarkable The neck is supple no adenopathy Cardiovascular, regular rate and rhythm Lungs, clear bilateral Abdomen, soft nontender Extremities, no clubbing cyanosis or edema Neurologic, awake alert answering questions appropriately moving all 4 extremities his gait is strong steady and stable he is moving all 4 extremities no psychomotor agitation or mental cloudiness no delirium Test Results: [] Emergency Department Course and Treatment: [] Apparently per the runs a high ammonia level of about 160- 180 the is concerned is high at this time will check some screening labs can the ammonia level provide additional dose of lactulose will reevaluate Patient's ammonia level is 160 the rest of the studies are generally unremarkable she was reports, on reevaluation he did takes an additional 60 g of lactulose here without difficulty remains awake alert sharp minded I had a long conversation with the , apparently he has started taking the new medicine from [facility] she believes that medication was started to help with his mental status she does not know the name of the medicine, she is concerned that the new medicine is causing his ammonia level to rise, we discussed inpatient versus outpatient management family is couple discharge home as his general health has been very good he remains very sharp minded there is no signs of encephalopathy he can answer all the questions appropriately they will start taking lactulose 60 g tonight 60 g with meals tomorrow, they will try to see the shop foreman at [facility] and follow-up with Dr. Christine their primary care physician tomorrow or the next day for further management options and return for change in symptoms, please note we did page Dr. Christine, and when he calls back we will discuss the case with him but the family understands need to contact Dr. christine's office tomorrow for further follow-up and appointments Treatment Plan: [] Disposition: [] Home stable Impression: [] Hepatic encephalopathy elevated ammonia level This note was generated with [employer] software. It may contain incorrect words, spelling, and punctuation that were not noted in review of the chart prior to signing ED Disposition - Plan for ED Patient: Diagnosis: Hepatic encephalopathy Referrals: Pedro Pablo Broussard III, MD [Primary Care Provider] - Additional Instructions: Take 60 g of lactulose tonight, take 60 g of lactulose 3 times a day tomorrow then on Tuesday resume your normal lactulose schedule follow-up with your liver specialist and your outpatient providers in 1-2 days
--- NOTE | 2019-02-19 13:53 | ED.DCSUM_ITS ---
- ER Visit Summary Date of Service: 02/19/19 Chief Complaint: [] Concern that ammonia level is high History of Present Illness: The patient is a 59 M [] hx of liver failure chronically, hepatic encephalopathy, pdo-[id number]-ztbrwaf fatty liver on lactulose, ammonia levels run about 160 or more per the , the patient's been his usual state of health he has had no fever no cough no chest pain no abdominal pain he actually got up today did his normal routine activities, and he went to the fitness center was able to do his aquatic exercise without difficulty as he was getting out he felt some weakness in his legs the is concerned is related to his ammonia level being high and he was brought to the emergency department. He is taking his lactulose if there is a second medicine he supposed to be taking with that medicine is quite expensive and is currently pending to be sent to them from a pharmacy in [place] At patient at this time has no complaints he is awake he is alert he knows his name he can tell me his address with 3 detail, he knows his , he describes all of his activities today, he denies being confused and denies any symptoms, he was able to walk around the emergency department without difficulty His cirrhosis is related to fatty liver and otherwise his health conditions have been stable Physical Examination: [] Vital signs within normal range General, no distress resting comfortably, he is a very large gentleman, he has a heavy speech which of prior stroke but per the the speech pattern is normal he is completely oriented x3 able to provide all details of today and he has no complaints HEENT is generally unremarkable The neck is supple no adenopathy Cardiovascular, regular rate and rhythm Lungs, clear bilateral Abdomen, soft nontender Extremities, no clubbing cyanosis or edema Neurologic, awake alert answering questions appropriately moving all 4 extremities his gait is strong steady and stable he is moving all 4 extremities no psychomotor agitation or mental cloudiness no delirium Test Results: [] Emergency Department Course and Treatment: [] Apparently per the runs a high ammonia level of about 160- 180 the is concerned is high at this time will check some screening labs can the ammonia level provide additional dose of lactulose will reevaluate Patient's ammonia level is 160 the rest of the studies are generally unremarkable she was reports, on reevaluation he did takes an additional 60 g of lactulose here without difficulty remains awake alert sharp minded I had a long conversation with the , apparently he has started taking the new medicine from [facility] she believes that medication was started to help with his mental status she does not know the name of the medicine, she is concerned that the new medicine is causing his ammonia level to rise, we discussed inpatient versus outpatient management family is couple discharge home as his general health has been very good he remains very sharp minded there is no signs of encephalopathy he can answer all the questions appropriately they will start taking lactulose 60 g tonight 60 g with meals tomorrow, they will try to see the graphic designer at [facility] and follow-up with Dr. Christine their primary care physician tomorrow or the next day for further management options and return for change in symptoms, please note we did page Dr. Christine, and when he calls back we will d iscuss the case with him but the family understands need to contact Dr. christine's office tomorrow for further follow-up and appointments Treatment Plan: [] Disposition: [] Home stable Impression: [] Hepatic encephalopathy elevated ammonia level This note was generated with [employer] dictation software. It may contain incorrect words, spelling, and punctuation that were not noted in review of the chart prior to signing ED Disposition - Plan for ED Patient: Diagnosis: Hepatic encephalopathy Referrals: Pedro Pablo Broussard III, MD [Primary Care Provider] - Additional Instructions: Take 60 g of lactulose tonight, take 60 g of lactulose 3 times a day tomorrow then on Tuesday resume your normal lactulose schedule follow-up with your liver specialist and your outpatient providers in 1-2 days
[2019-02-19] MEDS: Lactulose 20 GM/30 ML UDC PO ×2 (14:12)
[2019-02-19 14:13] LABS: Absolute Lymphocyte Count 1.62 X10^3/ul (0.83-4.51); Basophil# 0.04 X10^3/uL; Eosinophil# 0.14 X10^3/uL; Eosinophils% 3.4 % (0-5); Hematocrit 40.6 % (40-54); Hemoglobin 13.9 g/dl (13.0-16.5); Lymphocyte # 1.62 X10^3/ul (4.0); Mean Corp Hgb Conc 34.2 g/gl (32-36); Mean Corpuscular Hgb 33.1 pg (27.0-32.0); Mean Corpuscular Volume 96.7 fL (80-94); Monocyte% 9.6 % (0-10); Neutrophil # 1.95 X10^3/uL (2.7-7.7); Platelet Count 103 K/mm3 (150-450); RBC Distribution Width CV 13.4 % (11.6-14.6); RBC Distribution Width SD 47.2 fl (35.1-43.9); White Blood Count 4.2 K/mm3 (4.4-11.0)
[2019-02-19 14:14] LABS: POSITIVE COUNT NO; POSITIVE DIFFERENTIAL NO; POSITIVE MORPHOLOGY NO
[2019-02-19 14:38] LABS: International Normalized Ratio 1.3; Prothrombin Time (Protime)PT. 15.7 SECONDS (11.7-14.9)
[2019-02-19 14:38] LABS: AST(SGOT) 36 U/L (15-37); Alanine Aminotransfer ALT/SGPT 14 U/L (16-61); Albumin, Serum 2.7 g/dL (3.2-5.0); Alkaline Phosphatase 91 U/L (45-117); Anion Gap 4 (5-15); BUN 14 mg/dL (7-18); BUN/Creat Ratio 15.8 RATIO (10-20); Bilirubin, Direct 0.36 mg/dL (0.00-0.30); Calcium,Total 8.1 mg/dL (8.5-10.1); Chloride 111 mmol/L (98-107); Creatinine, Serum 0.89 mg/dL (0.70-1.30); EST Glomerular Filtration Rate 93 mL/min (>60); Est Glom Filt Rate - Afr Amer 113 mL/min (>60); Estimated Creatinine Clearance 95.18 ml/min; Globulin 3.4 g/dL (2.2-4.2); Glucose 90 mg/dL (74-106); Potassium 4.4 mmol/L (3.5-5.1); Protein, Total 6.1 g/dL (6.4-8.2); Sodium Level 143 mmol/L (136-145)
[2019-02-19 14:48] LABS: White Blood Cells 0 SEEN /hpf (0-5)
[2019-02-19 14:50] LABS: Color, Urine Yellow (Yellow); Glucose, Dipstick Normal (Normal); Ketone-Dipstick Negative (Negative); Leukocyte Esterase-Dipstick Negative /ul (Negative); Nitrite-Dipstick Negative (Negative); Occult Blood-Urine 10 /ul (Negative); Protein-Dipstick Negative (Negative); Urine Bilirubin Dipstick Negative (Negative); Urine Clarity Sl. Cloudy (Clear); Urine Urobilinogen 4 mg/dl (Normal)
[2019-02-19 14:58] LABS: Red Blood Cells-Urine 0-5 SEEN /hpf (0-5)
[2019-02-19 14:59] LABS: Bacteria RARE /hpf (None Seen); Mucous, Urine RARE /hpf (<or=2+); Squamous Epithelial Cells - UA 0-5 SEEN /hpf (0-5)
[2019-02-19 15:32] VITALS: PULSE 68; RESP 18; O2SAT 98
--- NOTE | 2019-02-19 17:09 | ED.DEP ---
ED Disposition - Plan for ED Patient: Diagnosis: Hepatic encephalopathy Referrals: Pedro Pablo Broussard III, MD [Primary Care Provider] - Additional Instructions: Take 60 g of lactulose tonight, take 60 g of lactulose 3 times a day tomorrow then on Tuesday resume your normal lactulose schedule follow-up with your liver specialist and your outpatient providers in 1-2 days
[2019-02-19 17:48] VITALS: BP 120/67; PULSE 84; RESP 15; O2SAT 97
--- NOTE | 2019-02-21 12:29 | CASEMGMT ---
Case Management ER DC Follow Up Call: Called patient listed cell number on Demographics, No Answer, Unable to verify through VM recording it is patient's correct number and therefore no VM was left. Vianney Howe RNCM
== END 2019-02-19 17:50 | disposition home or self-care (01) ==
LOC: ED 14:19
PROVIDERS: Emergency Provider Emergency Medicine; Family Provider Family Medicine; PCP Family Medicine
DX: K72.90 Hepatic failure, unspecified without coma (principal); R79.89 Other specified abnormal findings of blood chemistry; K76.0 Fatty (change of) liver, not elsewhere classified; I63.9 Cerebral infarction, unspecified; I69.328 Other speech and language deficits following cerebral infarction; Z79.899 Other long term (current) drug therapy
CPT/HCPCS: 80048; 80076; 81001; 82140; 83880; 84484; 85025; 85610; 93005; 99285; A4216

== ENCOUNTER 2019-07-13 22:25 | Emergency (ER) | payer MEDICARE, SELFPAY ==
[2019-07-13 22:26] VITALS: BP 157/60; PULSE 89; RESP 18; TEMP 36.4; O2SAT 95; BMI 42.8
--- NOTE | 2019-07-13 22:34 | ED.VIS.GEN ---
History of Present Illness Chief Complaint: Cellulitis Detail of Chief Complaint: Cellulitis left leg Informant: Patient, Significant Other Onset: Hours Context: Sudden Onset Timing: Continuous Quality: Rash anterior left leg, leg on fire Location: Anterior left leg Current Severity: Moderate Maximum Severity: Moderate Worsened by: Unknown Relieved by: Nothing Associated Symptoms: Warmth and redness Narrative: Patient is a 59-year-old male who states he was at a football game. He denies history of trauma. He noted that his leg felt warm and he has a deep red rash. He has had cellulitis in the past. States when he has had cellulitis in the past with secondary to trauma cut in skin . He denies fever, chills night sweats. He is not diabetic. He is on no immunosuppressive meds. He denies history rheumatic fever, heart murmur, SBE. He denies GI symptoms. He denies groin pain. 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 Comment: old stroke not visible on MRI- F neurology opinion (4) GERD (gastroesophageal reflux disease) Status: Chronic (5) HTN (hypertension) Status: Chronic (6) Hepatic encephalopathy Status: Chronic (7) Morbid obesity with body mass index of 45.0-49.9 in adult Status: Chronic (8) BOOTHE (nonalcoholic steatohepatitis) Status: Chronic (9) SANTHOSH (obstructive sleep apnea) Status: Chronic (10) Osteoarthritis Status: Chronic (11) Rectal bleed Status: Chronic (12) Stasis dermatitis Status: Chronic Past Medical History - Allergies and Home Meds Allergies/Adverse Reactions: Allergies aspirin Adverse Reaction (Verified 07/13/19 22:28) Upset Stomach Primary Care Physician: Pedro Pablo Broussard III, MD [Primary Care Provider] - Prior records reviewed: Yes Surgical History: cholecystectomy, total hip arthroplasty, - - bilateral knee replacement, liver bx Lives: Spouse/ Significant Other Smoking Status: Never smoker Alcohol: None Drugs: None - Family History Maternal Family History: Reports: No pertinent history Paternal Family History: Reports: Diabetes Review of Systems General: Denies: Chills, Fever, Malaise, Subjective, Sweats Cardiovascular: Denies: Chest pain, Palpitations Respiratory: Denies: Dyspnea, Cough, Dyspnea on exertion Gastrointestinal: Denies: Abdominal pain, Nausea, Vomiting, Diarrhea Musculoskeletal: Reports: Swelling, Extremity Pain. Denies: Myalgias, Arthralgias, Neck pain, Back pain Skin: Reports: Rash. Denies: Abscess, Abrasions, Wounds Neurological: Denies: Headache, Weakness, Parasthesia, Numbness Hematologic: Denies: Easy bruising, Easy bleeding Allergy: Denies: Uticaria, Swelling of the mouth, Swelling of the tongue Physical Exam Vital Signs/Narrative: Vital Signs Temp Pulse Resp BP Pulse Ox 07/13/19 22:26 97.6 F L 89 18 157/60 H 95 Inital Vital Signs reviewed: Yes General: Well nourished, Well developed, Obese, No Acute Distress Head: Normocephalic, Atraumatic Eyes: Perrl, EOMI. Negative for: Pale conjunctiva, Scleral icterus ENT: Moist mucous membranes, No rhinorrhea Neck: Supple, Nontender, No lymphadenopathy, No JVD Cardiovascular: Regular rate, Regular rhythm, No murmurs, Normal S1, Normal S2 Respiratory: No distress, CTA bilaterally, Chest nontender Abdomen: Soft, Nontender, Nondistended Back: Nontender, Normal Inspection Extremities: Tenderness. Negative for: Nontender, No edema Skin: Normal color, No Trauma, Rash - Is a erythematous rash that is 10 x 30 cm anterior left leg. The area is indurated warm. There is no lymphangitis. There is no fluctuance. There is no popliteal or inguinal lymphadenopathy. Patient does have stasis dermatitis. There is significant temperature difference to touch anterior left leg compared to the right. The margins were outlined.. Negative for: Cyanosis, Diaphoresis, Jaundice Diagnostic/Tx/Re-eval Laboratory Results 07/13/19 07/13/19 07/13/19 22:40 22:40 22:40 WBC 4.3 L RBC 4.24 L Hgb 14.0 Hct 41.4 MCV 97.6 H MCH 33.0 H MCHC 33.8 RDW Std Deviation 47.2 H RDW Coeff of Reji 13.2 Plt Count 111 L MPV 8.4 Immature Gran % (Auto) 0.200 Neut % (Auto) 59.4 Lymph % (Auto) 25.6 Henderson % (Auto) 12.0 H Eos % (Auto) 2.1 Baso % (Auto) 0.7 Absolute Neuts (auto) 2.5 Absolute Lymphs (auto) 1.09 Nucleated RBC % 0 Sodium 142 Potassium 4.0 Chloride 112 H Carbon Dioxide 26.0 Anion Gap 4 L BUN 18 Creatinine 1.05 Estim Creat Clear Calc 80.68 Est GFR (MDRD) Af Amer 93 Est GFR (MDRD) Non-Af 77 BUN/Creatinine Ratio 17.1 Glucose 123 H Lactic Acid 1.3 Calcium 8.3 L White count is low at 4.3 thousand and platelet count is low at 111,000. This is patient's norm. Basic metabolic panel was marked for slight elevation chloride of 112. Lactate is normal at 1.3. Patient has no sirs criteria. Plan is IV vancomycin and discharged with prescription for cephalexin and Bactrim. - Medical Decision Making It was cellulitis of the left anterior leg. We will obtained blood work for risk stratification. If lactate is elevated will obtain blood cultures. Will review prior records to determine what organism was the cause of prior infections. Plan is to discharge after IV antibiotics with prescription for cephalexin and Bactrim. He is to follow-up with Dr. Pedro Pablo Broussard on Tuesday. He was instructed to return if unable to see him by Dr. Wilkerson or if he develops worsening symptoms. ED Disposition - Plan for ED Patient: Disposition: Home or Assisted Living Diagnosis: Cellulitis of left leg without foot Instructions: Cellulitis Prescriptions: Smz/Tmp Ds [Bactrim Ds] 1 tab PO BID #14 tab Transmission Status: Pending to [facility] Cephalexin [Keflex] 500 mg PO 4X/DAY #28 cap Transmission Status: Pending to [facility] Referrals: Pedro Pablo Broussard III, MD [Primary Care Provider] - 2 Days for wound check Additional Instructions: Your prescriptions were electronically transmitted to [facility] located on [facility]. Make appointment to be seen by Dr. Pedro Pablo Broussard on Tuesday. If you are unable to be seen by Dr. Pedro Pablo Broussard do not hesitate to return to the emergency department. If you develop temperature greater than 100.5, shaking chills, red streak, colored drainage or expansion of rash, return to the emergency department
[2019-07-13 22:51] LABS: Absolute Lymphocyte Count 1.09 X10^3/uL (0.83-4.51); Absolute Neutrophil Count 2.5 X10^3/uL (2.0-7.7); Basophil# 0.03 X10^3/uL; Basophil% 0.7 % (0-1); Eosinophil# 0.09 X10^3/uL; Eosinophils% 2.1 % (0-5); Hematocrit 41.4 % (40-54); Lymphocyte # 1.09 X10^3/ul (4.0); Lymphocyte % 25.6 % (19-41); Mean Corp Hgb Conc 33.8 g/dL (32-36); Mean Corpuscular Volume 97.6 fL (80-94); Mean Platelet Vol. 8.4 fl (6.2-12.0); Monocyte# 0.51 X10^3/uL; NRBC Flagged by Analyzer 0 % (0-5); Neutrophil # 2.52 X10^3/uL (2.7-7.7); Neutrophil % 59.4 % (47-70); Platelet Count 111 K/mm3 (150-450); RBC Distribution Width CV 13.2 % (11.6-14.6); RBC Distribution Width SD 47.2 fl (35.1-43.9); Red Blood Count 4.24 M/mm3 (4.6-6.2); White Blood Count 4.3 K/mm3 (4.4-11.0)
[2019-07-13 23:04] LABS: Anion Gap 4 (5-15); BUN 18 mg/dL (7-18); BUN/Creat Ratio 17.1 RATIO (10-20); Calcium,Total 8.3 mg/dL (8.5-10.1); Chloride 112 mmol/L (98-107); Creatinine, Serum 1.05 mg/dL (0.70-1.30); EST Glomerular Filtration Rate 77 mL/min (>60); Est Glom Filt Rate - Afr Amer 93 mL/min (>60); Estimated Creatinine Clearance 80.68 ml/min; Glucose 123 mg/dL (74-106); Sodium Level 142 mmol/L (136-145)
[2019-07-13 23:14] LABS: Lactic Acid 1.3 mmol/L (0.4-2.0)
[2019-07-14 01:09] VITALS: BP 135/68; PULSE 72; RESP 18; O2SAT 96
[2019-07-14 02:23] VITALS: BP 129/67; PULSE 70; RESP 16; O2SAT 93
== END 2019-07-14 02:24 | disposition home or self-care (01) ==
PROVIDERS: Emergency Provider Emergency Medicine; Family Provider Family Medicine; PCP Family Medicine
DX: L03.116 Cellulitis of left lower limb (principal); K21.9 Gastro-esophageal reflux disease without esophagitis; I10 Essential (primary) hypertension; Z68.42 Body mass index [BMI] 45.0-49.9, adult; E66.01 Morbid (severe) obesity due to excess calories; G47.33 Obstructive sleep apnea (adult) (pediatric); M19.90 Unspecified osteoarthritis, unspecified site; Z79.899 Other long term (current) drug therapy
CPT/HCPCS: 80048; 83605; 85025; 96365; 96366; 99284; J7040; A4216

== ENCOUNTER 2019-12-21 20:30 | Inpatient (IN) | payer MEDICARE, SELFPAY ==
[2019-12-21 20:31] VITALS: BP 165/105; PULSE 78; RESP 16; TEMP 36.6; O2SAT 98; BMI 95.3
[2019-12-21 21:04] VITALS: BP 165/95; PULSE 78; RESP 20; O2SAT 99
[2019-12-21] MEDS: 0.9% Normal Saline 1,000 ML 150 ML IV (21:50)
[2019-12-21] MEDS: rifAXIMin 550 MG Tablet PO (21:51)
[2019-12-21 21:56] LABS: Absolute Lymphocyte Count 1.25 X10^3/uL (0.83-4.51); Absolute Neutrophil Count 2.3 X10^3/uL (2.0-7.7); Basophil# 0.05 X10^3/uL; Basophil% 1.2 % (0-1); Eosinophil# 0.08 X10^3/uL; Eosinophils% 1.9 % (0-5); Hematocrit 40.3 % (40-54); Hemoglobin 13.5 g/dL (13.0-16.5); Lymphocyte # 1.25 X10^3/ul (4.0); Lymphocyte % 29.5 % (19-41); Mean Corp Hgb Conc 33.5 g/dL (32-36); Mean Corpuscular Hgb 32.5 pg (27.0-32.0); Mean Corpuscular Volume 97.1 fL (80-94); Mean Platelet Vol. 8.6 fl (6.2-12.0); Monocyte# 0.52 X10^3/uL; Monocyte% 12.3 % (0-10); NRBC Flagged by Analyzer 0 % (0-5); Neutrophil # 2.33 X10^3/uL (2.7-7.7); Neutrophil % 54.9 % (47-70); Platelet Count 110 K/mm3 (150-450); RBC Distribution Width CV 13.2 % (11.6-14.6); RBC Distribution Width SD 47.5 fl (35.1-43.9); Red Blood Count 4.15 M/mm3 (4.6-6.2); White Blood Count 4.2 K/mm3 (4.4-11.0)
[2019-12-21 22:13] LABS: ALB/GLOB Ratio 0.7 RATIO (0.9-2.4); AST(SGOT) 33 U/L (15-37); Alanine Aminotransfer ALT/SGPT 14 U/L (16-61); Albumin, Serum 2.7 g/dL (3.2-5.0); Alkaline Phosphatase 105 U/L (45-117); Anion Gap 4 (5-15); BUN 13 mg/dL (7-18); BUN/Creat Ratio 13.4 RATIO (10-20); Calcium,Total 8.2 mg/dL (8.5-10.1); Chloride 111 mmol/L (98-107); Creatinine, Serum 0.97 mg/dL (0.70-1.30); EST Glomerular Filtration Rate 84 mL/min (>60); Est Glom Filt Rate - Afr Amer 101 mL/min (>60); Estimated Creatinine Clearance 87.33 ml/min; Globulin 3.7 g/dL (2.2-4.2); Glucose 110 mg/dL (74-106); Potassium 4.1 mmol/L (3.5-5.1); Protein, Total 6.4 g/dL (6.4-8.2); Sodium Level 143 mmol/L (136-145)
--- NOTE | 2019-12-21 22:24 | ED.VISSUMM ---
- ER Visit Summary Date of Service: 12/21/19 Chief Complaint: [Increased confusion and difficulty with balance] History of Present Illness: The patient is a 59 M [presents to the emergency department with symptoms that started today. Patient speech is a little more slurred than usual although it chronically is slurred. Patient denies any chest pain or shortness of breath. He denies any abdominal pain. tells me that they ran out of his Xifaxan medication which she takes for hepatic encephalopathy related to Ricci. Patient has been without his Xifaxan for several months. Patient still taking his lactulose. Patient with history of GERD as well as obstructive sleep apnea. He denies fevers or recent illness. He denies any falls or head injuries. He denies headache.] Physical Examination: [HEENT-PERRLA, EOMI. Cranial nerves II through XII grossly intact. TMs clear. Mucous membranes moist. No adenopathy. Cardiovascular-regular rate and rhythm without murmur or ectopy Lungs-clear to auscultation, chest wall stable without crepitus or subcu emphysema Abdomen-normoactive bowel sounds, soft, nontender, no rebound or rigidity, no peritoneal signs. Neuro gawy-[id number]-ewrw and heel amaya testing within normal limits, negative Romberg, negative , Fundi benign. Patient does have a fine tremor noted. Extremities-intact ?4, normal range of motion, normal pulses, atraumatic] Test Results: [CBC with differential obtained showed a white count of 4.2, hemoglobin 13, hematocrit 40, platelets 110. Chemistry showed a sodium 143, potassium 4.1, chloride 111, CO2 28, glucose 110. Alk phos was 105. ALT 14 and AST was 33. Ammonia was 180.] Emergency Department Course and Treatment: [Patient was ordered Xifaxan as well as lactulose p.o.] Treatment Plan: [Patient will be admitted for further management of his hepatic encephalopathy] Disposition: [Admit] Impression: [Hepatic encephalopathy] This note was generated with [employer] dictation software. It may contain incorrect words, spelling, and punctuation that were not noted in review of the chart prior to signing ED Disposition - Plan for ED Patient: Referrals: Pedro Pablo Broussard III, MD [Primary Care Provider] -
--- NOTE | 2019-12-21 22:26 | PCM.HP.STD ---
Problem List (1) Morbid obesity with body mass index of 45.0-49.9 in adult Status: Chronic (2) GERD (gastroesophageal reflux disease) Status: Chronic Qualifiers: Esophagitis presence: esophagitis presence not specified Qualified Code(s): K21.9 - Gastro-esophageal reflux disease without esophagitis (3) SANTHOSH (obstructive sleep apnea) Status: Chronic (4) Acute hepatic encephalopathy Status: Acute (5) Duodenal ulcer Status: Chronic (6) Rectal bleed Status: Chronic (7) TIA (transient ischemic attack) Status: Chronic Qualifiers: Transient cerebral ischemia type: unspecified Qualified Code(s): G45.9 - Transient cerebral ischemic attack, unspecified (8) 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 At baseline patient had slurred speech. However reportedly his slurred speech has increased. Associated with his symptoms is increased confusion and a feeling of off balance. At home patient takes rifaximin and lactulose. He has missed several doses of rifaximin because he is unable to afford. He continue to take his lactulose. Anytime the patient misses rifaximin reportedly he gets confused. 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) old stroke not visible on MRI- [facility] neurology opinion History of peptic ulcer (Chronic) Osteoarthritis (Chronic) HTN (hypertension) (Chronic) Allergies aspirin Adverse Reaction (Verified 12/21/19 20:31) Upset Stomach Home Medications: Ambulatory Orders Medication Instructions Recorded Lisinopril [Zestril] 40 mg PO DAILY 12/24/15 Lactulose [Chronulac] 30 gm PO BID 01/16/16 Rifaximin [Xifaxan] 550 mg PO BID 11/16/16 Esomeprazole Magnesium 40 mg PO DAILY 08/29/18 Surgical History: cholecystectomy, total hip arthroplasty, - - bilateral knee replacement, liver bx Psychiatric History: No pertinent psych hx Smoking Status: Never smoker Tobacco Use: Non-smoker - *Family History Maternal History Items: - - Denies any maternal medical history. Paternal History Items: Diabetes, Dementia Review of Systems Constitutional: Reports: Weakness. Denies: Chills, Fever, Weight Change HEENT: Denies: Head Aches, Sinus Congestion, Sinus Drainage Cardiovascular: Denies: Chest Pain, Palpitations Respiratory: Denies: Cough, Shortness of breath at rest, Sputum production Gastrointestinal: Denies: Abdominal Pain, Nausea, Vomiting Genitourinary: Denies: Dysuria Musculoskeletal: Denies: Joint Pain, Joint Tenderness Skin: Denies: Rash, Wounds Neurological: Reports: Slurred speech, Confusion. Denies: Focal weakness, Numbness, Tingling Psychiatric: Denies: Anxiety, Depression, Homicidal Ideations, Suicidal Ideations Hematologic/ Lymphatic: Denies: Easy Bruising, Easy Bleeding VTE Information - Inpt Only VTE Present on Admission: No VTE Mechan Device Prophylaxis: None VTE Pharm Prophylaxis ordered?: Yes - Physical Exam Vitals/I&O's: Vital Signs Temp Pulse Resp BP Pulse Ox 97.8 F 78 20 H 165/95 H 99 12/21/19 20:31 12/21/19 21:04 12/21/19 21:04 12/21/19 21:04 12/21/19 21:04 Oxygen Delivery Method Room Air Weight: 310 kg Body Mass Index (BMI) 95.3 Finger Stick Blood Glucose 93 General: Alert, Oriented x3, Cooperative HEENT: Atraumatic, PERRLA, EOMI, Normocephalic Neck: Supple, No JVD, Negative Carotid Bruits Lungs: Clear to auscultation, Normal air movement Cardiovascular: Regular rate, Normal S1, Normal S2, No murmurs Abdomen: Bowel Sounds Present, Soft, Non Tender Extremities: No edema, Capillary Refill Less than 3 Seconds Skin: No rashes, No breakdown Musculoskeletal: No Tenderness to Palpation of Joints or Extremities Neurological: Deep Tendon Reflexes 2+/4 and Symmetrical, Slurred Speech, Muscle tone normal Psych/Mental Status: Normal Affect, Appropriate Laboratory Results 12/21/19 21:44: WBC 4.2 L, RBC 4.15 L, Hgb 13.5, Hct 40.3, MCV 97.1 H, MCH 32.5 H, MCHC 33.5, RDW Std Deviation 47.5 H, RDW Coeff of Reji 13.2, Plt Count 110 L, MPV 8.6, Immature Gran % (Auto) 0.200, Neut % (Auto) 54.9, Lymph % (Auto) 29.5, [place] % (Auto) 12.3 H, Eos % (Auto) 1.9, Baso % (Auto) 1.2 H, Absolute Neuts (auto) 2.3, Absolute Lymphs (auto) 1.25, Nucleated RBC % 0 12/21/19 21:44: Sodium 143, Potassium 4.1, Chloride 111 H, Carbon Dioxide 28.0, Anion Gap 4 L, BUN 13, Creatinine 0.97, Estim Creat Clear Calc 87.33, Est GFR (MDRD) Af Amer 101, Est GFR (MDRD) Non-Af 84, BUN/Creatinine Ratio 13.4, Glucose 110 H, Calcium 8.2 L, Total Bilirubin 1.30 H, AST 33, ALT 14 L, Alkaline Phosphatase 105, Total Protein 6.4, Albumin 2.7 L, Globulin 3.7, Albumin/Globulin Ratio 0.7 L 12/21/19 21:44: Ammonia 180.0 H Current Medications Sodium Chloride () 1,000 mls @ 150 mls/hr IV .Q6H40M [facility] Last Admin: 12/21/19 21:50 Dose: 150 mls/hr Documented by: Rifaximin (Xifaxan) 550 mg PO BID [facility] Last Admin: 12/21/19 21:51 Dose: 550 mg Documented by: Assessment/Plan All Active Problems Hepatic encephalopathy (Acute) Acute hepatic encephalopathy (Acute) Cellulitis (Resolved) Chest pain (Resolved) Cholecystitis (Resolved) Hepatic encephalopathy (Resolved) Hyperammonemia (Resolved) The patient is a 59 year old M with a significant history of Ricci cirrhosis with hepatic encephalopathy who presented with increased slurred speech; confusion and disequilibrium consistent with probable acute on chronic hepatic encephalopathy. Acute on chronic hepatic encephalopathy Noted to have elevated ammonia level. Trend ammonia levels. Patient was given rifaximin and lactulose at the emergency department. We will continue rifaximin. Will escalate dose of lactulose. Parameters to hold lactulose placed. Get head CT. We will get an abdominal CT to evaluate for ascites and to rule out SBP. GERD and history of duodenal ulcer PPI continued. Hypertension On presentation blood pressure was not within goal Lisinopril continued Hydralazine PRN added. Trend blood pressure and adjust blood pressure medications. Morbid obesity: Complicates care. Obstructive sleep apnea: CPAP continued. DVT prophylaxis Subcutaneous Lovenox. Inpatient E&M: 22668 Init Hosp L3
[2019-12-21] MEDS: Lactulose 20 GM/30 ML UDC 30 GM PO (22:40)
[2019-12-21 23:09] VITALS: BP 130/76; PULSE 67; RESP 17; TEMP 36.4; O2SAT 99
[2019-12-21 23:30] VITALS: BMI 44.2; BMI 44.3
[2019-12-22] VITALS (10 sets, daily range): BP systolic 146–156; BP diastolic 81–95; PULSE 61–90; RESP 16–20; TEMP 36.4–36.7; O2SAT 93–97
--- NOTE | 2019-12-22 01:06 | CT_ITS ---
STUDY: CT BRAIN WITHOUT CONTRAST REASON FOR EXAM: Male, 59 years old. WEAKNESS, CONFUSION, HEPATIC ENCEPHALOPATHY RADIATION DOSAGE (If Supplied By Facility): CTDIvol = ( 44.99 ) mGy, DLP = ( 779.24 ) mGycm TECHNIQUE: Transaxial CT imaging of the brain was performed without administration of intravenous contrast material. Individualized dose optimization techniques were used for this CT. COMPARISON: 01/16/2016. FINDINGS: Normal soft tissue structures. Normal calvarium. Normal size ventricles and extra-axial spaces for the patient''s age. Normal white matter tracts of the cerebral hemispheres. Normal basal ganglia and thalami. Normal brainstem. Normal cerebellum. There is no intracranial hemorrhage. There are no findings of an acute ischemic infarction. Normal visualized paranasal sinuses. Opacification of the left mastoid and left middle ear structures. CT/Brain/Head without Contrast IMPRESSION: Normal unenhanced CT scan of the brain. Left-sided mastoid effusion with fluid within the left middle ear, cannot exclude otitis media. Electronically Signed: Stephanie Lomeli MD at 2:21 EST , Service support ,
--- NOTE | 2019-12-22 01:07 | CT_ITS ---
STUDY: CT ABDOMEN AND PELVIS WITHOUT CONTRAST REASON FOR EXAM: Male, 59 years old. WEAKNESS, CONFUSION, HEPATIC ENCEPHALOPATHY RADIATION DOSAGE (If Supplied By Facility): CTDIvol = ( 24.18 ) mGy, DLP = ( 1274.56 ) mGycm TECHNIQUE: Transaxial images were obtained from the dome of the diaphragm to the symphysis pubis without oral contrast, and without intravenous contrast. Sagittal and coronal images were reconstructed. Individualized dose optimization techniques were used for this CT. COMPARISON: None. FINDINGS: Mild bilateral lower lobe atelectasis, remainder of the lung bases are clear. The visualized portions of the heart are within normal limits. Normal liver. There are surgical clips in the gallbladder fossa consistent with a prior cholecystectomy. Normal spleen. Normal pancreas. Normal bilateral adrenal glands. Normal right kidney. Normal left kidney. Normal visualized stomach. Normal small intestine. Moderate to abundant fecal debris within the colon which may indicate mild constipation. Mild diverticulosis with no signs of diverticulitis. There are surgical clips in the region of the appendix consistent with a prior appendectomy. There is diffuse atherosclerotic calcification of the abdominal aorta, without a demonstrated aneurysm. Normal inferior vena cava. Normal retroperitoneum. Incompletely distended urinary bladder. Normal abdominal wall. There are diffuse degenerative changes of the visualized lumbar spine. CT/Abdomen/Pelvis without Cont IMPRESSION: Possible mild constipation. No signs of bowel obstruction or focal inflammatory process throughout the gastrointestinal tract. Status post cholecystectomy, remainder of abdominal viscera are unremarkable. Electronically Signed: Stephanie Lomeli MD at 2:39 EST , Service support ,
[2019-12-22] MEDS: Lactulose 20 GM/30 ML UDC 30 GM PO ×3 (05:33→21:20)
[2019-12-22 06:33] LABS: Absolute Lymphocyte Count 1.32 X10^3/uL (0.83-4.51); Absolute Neutrophil Count 1.7 X10^3/uL (2.0-7.7); Basophil# 0.04 X10^3/uL; Basophil% 1.1 % (0-1); Eosinophil# 0.17 X10^3/uL; Eosinophils% 4.5 % (0-5); Hematocrit 39.6 % (40-54); Hemoglobin 13.5 g/dL (13.0-16.5); Lymphocyte # 1.32 X10^3/ul (4.0); Lymphocyte % 34.8 % (19-41); Mean Corp Hgb Conc 34.1 g/dL (32-36); Mean Corpuscular Hgb 32.9 pg (27.0-32.0); Mean Corpuscular Volume 96.6 fL (80-94); Mean Platelet Vol. 8.9 fl (6.2-12.0); Monocyte# 0.53 X10^3/uL; NRBC Flagged by Analyzer 0 % (0-5); Neutrophil # 1.72 X10^3/uL (2.7-7.7); Neutrophil % 45.3 % (47-70); Platelet Count 105 K/mm3 (150-450); RBC Distribution Width CV 13.2 % (11.6-14.6); RBC Distribution Width SD 46.5 fl (35.1-43.9); White Blood Count 3.8 K/mm3 (4.4-11.0)
[2019-12-22 06:54] LABS: Anion Gap 4 (5-15); BUN 11 mg/dL (7-18); BUN/Creat Ratio 12.8 RATIO (10-20); Calcium,Total 8.2 mg/dL (8.5-10.1); Chloride 113 mmol/L (98-107); Creatinine, Serum 0.86 mg/dL (0.70-1.30); EST Glomerular Filtration Rate 97 mL/min (>60); Est Glom Filt Rate - Afr Amer 117 mL/min (>60); Glucose 103 mg/dL (74-106); Potassium 3.4 mmol/L (3.5-5.1); Sodium Level 143 mmol/L (136-145)
[2019-12-22] MEDS: Enoxaparin 40 MG/0.4 ML Syringe SC (08:29)
[2019-12-22] MEDS: Pantoprazole Sodium 40 MG Tablet PO (08:30)
[2019-12-22] MEDS: Lisinopril 40 MG Tablet PO (08:30)
--- NOTE | 2019-12-22 11:01 | PCM.PN.HOSP ---
Reason for Visit: Follow-up on hepatic encephalopathy Subjective: Patient was seen and examined. He has had 3 bowel movements today. No abdominal pain. No fever or chills. Vitals/I&O's: Vital Signs Temp Pulse Resp BP Pulse Ox 97.5 F L 90 20 H 146/90 H 96 12/22/19 04:11 12/22/19 08:07 12/22/19 04:11 12/22/19 04:11 12/22/19 04:11 Oxygen Delivery Method Room Air Weight: 144 kg Body Mass Index (BMI) 44.2 Finger Stick Blood Glucose 93 Intake and Output for Last 24 Hours 12/20/19 12/21/19 12/22/19 23:59 23:59 23:59 Intake Total 475 / 475 Balance 475 / 475 General: Alert, Oriented x3, Cooperative, No apparent distress HEENT: Atraumatic, PERRLA, EOMI, Normocephalic Oral: Moist Mucosa Neck: Supple Lungs: Clear to auscultation, Normal air movement Cardiovascular: Regular rate, Regular Rhythm, Normal S1, Normal S2, No murmurs Abdomen: Bowel Sounds Present, Soft, Non Tender, Non-Distended, No Hepato-splenomegaly Extremities: No edema Skin: No rashes, No breakdown Musculoskeletal: No Tenderness to Palpation of Joints or Extremities Lymphatic: No Cervical, Supraclavicular, or Inguinal Adenopathy Neurological: Cranial nerves II-XII grossly intact, Neuro grossly intact Psych/Mental Status: Normal Affect, Appropriate Laboratory Results 12/21/19 21:44: WBC 4.2 L, RBC 4.15 L, Hgb 13.5, Hct 40.3, MCV 97.1 H, MCH 32.5 H, MCHC 33.5, RDW Std Deviation 47.5 H, RDW Coeff of Reji 13.2, Plt Count 110 L, MPV 8.6, Immature Gran % (Auto) 0.200, Neut % (Auto) 54.9, Lymph % (Auto) 29.5, Power % (Auto) 12.3 H, Eos % (Auto) 1.9, Baso % (Auto) 1.2 H, Absolute Neuts (auto) 2.3, Absolute Lymphs (auto) 1.25, Nucleated RBC % 0 12/21/19 21:44: Sodium 143, Potassium 4.1, Chloride 111 H, Carbon Dioxide 28.0, Anion Gap 4 L, BUN 13, Creatinine 0.97, Estim Creat Clear Calc 87.33, Est GFR (MDRD) Af Amer 101, Est GFR (MDRD) Non-Af 84, BUN/Creatinine Ratio 13.4, Glucose 110 H, Calcium 8.2 L, Total Bilirubin 1.30 H, AST 33, ALT 14 L, Alkaline Phosphatase 105, Total Protein 6.4, Albumin 2.7 L, Globulin 3.7, Albumin/Globulin Ratio 0.7 L 12/21/19 21:44: Ammonia 180.0 H 12/22/19 06:19: WBC 3.8 L, RBC 4.10 L, Hgb 13.5, Hct 39.6 L, MCV 96.6 H, MCH 32.9 H, MCHC 34.1, RDW Std Deviation 46.5 H, RDW Coeff of Reji 13.2, Plt Count 105 L, MPV 8.9, Immature Gran % (Auto) 0.300, Neut % (Auto) 45.3 L, Lymph % (Auto) 34.8, Power % (Auto) 14.0 H, Eos % (Auto) 4.5, Baso % (Auto) 1.1 H, Absolute Neuts (auto) 1.7 L, Absolute Lymphs (auto) 1.32, Nucleated RBC % 0 12/22/19 06:19: Sodium 143, Potassium 3.4 L, Chloride 113 H, Carbon Dioxide 26.0, Anion Gap 4 L, BUN 11, Creatinine 0.86, Estim Creat Clear Calc 98.50, Est GFR (MDRD) Af Amer 117, Est GFR (MDRD) Non-Af 97, BUN/Creatinine Ratio 12.8, Glucose 103, Calcium 8.2 L 12/22/19 06:19: Ammonia 120.0 H Current Medications Acetaminophen (Tylenol) 650 mg PO Q6H PRN PRN PRN Reason: Pain Score 1-10/Temp > 100.7 F Enoxaparin Sodium (Lovenox) 40 mg SC DAILY [facility] Last Admin: 12/22/19 08:29 Dose: 40 mg Documented by: Glucagon () 1 mg IM .X1 PRN PRN Reason: Hypoglycemia Hydralazine HCl (Apresoline Iv) 5 mg IV Q4H PRN PRN PRN Reason: SBP > 160 Dextrose (Dextrose 10%-Water) 250 mls @ 999 mls/hr IV .Q16M PRN; Protocol PRN Reason: HYPOGLYCEMIA Lactulose (Chronulac, Cephulac) 30 gm PO TID [facility] Last Admin: 12/22/19 05:33 Dose: 30 gm Documented by: Lisinopril (Zestril) 40 mg PO DAILY [facility] Last Admin: 12/22/19 08:30 Dose: 40 mg Documented by: Melatonin (Melatonin) 3 mg PO QHS PRN PRN PRN Reason: INSOMNIA Ondansetron HCl (Zofran) 4 mg IV Q8H PRN PRN PRN Reason: NAUSEA/VOMITING Pantoprazole Sodium (Protonix) 40 mg PO DAILY [facility] Last Admin: 12/22/19 08:30 Dose: 40 mg Documented by: Rifaximin (Xifaxan) 550 mg PO BID [facility] Sodium Chloride () 10 - 40 ml IV UD PRN PRN Reason: SALINE FLUSH STROKE Vital Signs/Narrative: Vital Signs Pulse 12/22/19 08:07 90 Medical Necessity - Tobacco Use Smoking Status: Never smoker Tobacco Use: Non-smoker Assessment/Plan All Active Problems Hepatic encephalopathy (Acute) Acute hepatic encephalopathy (Acute) Cellulitis (Resolved) Chest pain (Resolved) Cholecystitis (Resolved) Hepatic encephalopathy (Resolved) Hyperammonemia (Resolved) 1. Acute on chronic hepatic encephalopathy, improving, H/o BOOTHE cirrhosis, hepatic encephalopathy, missed doses On scheduled Lactulose, rifaximin Repeat ammonia is 120 Will continue to follow clinically. 2. GERD, on PPI 3. Hypertension, controlled, continue on Lisinopril and hydralazine prn 4. Morbid obesity, BMI 44.3, lifestyle modification recommended 5. SANTHOSH on CPAP 6. DVT ppx - Lovenox SC Inpatient E&M: 91311 Subs Hosp L2
[2019-12-22] MEDS: rifAXIMin 550 MG Tablet PO ×2 (11:09→21:18)
[2019-12-22 11:54] LABS: AST(SGOT) 32 U/L (15-37); Alanine Aminotransfer ALT/SGPT 12 U/L (16-61); Albumin, Serum 2.5 g/dL (3.2-5.0); Alkaline Phosphatase 92 U/L (45-117); Globulin 3.5 g/dL (2.2-4.2)
--- NOTE | 2019-12-22 11:56 | NURSING ---
This nurse reviewed Dr Rodney's progress note.
--- NOTE | 2019-12-22 15:50 | CPS ---
Discussed with patient and , patient has CPAP at home. The is unable to bring in his home unit today. Patient has worn the Hospital's CPAP unit before and does not want it this time. He said it gives him too much flow. Patient stated he did sleep well last night. 2lpm nasal cannula placed at bedside for use during sleep.
--- NOTE | 2019-12-22 16:23 | CM.UR ---
Attempted to meet with patient for CM assessment, approximately 2:30, however patient was sleeping. Shabana Avalos RN, CCM.
[2019-12-23 04:02] VITALS: BP 141/77; PULSE 82; RESP 18; TEMP 36.7; O2SAT 98
[2019-12-23] MEDS: Lactulose 20 GM/30 ML UDC 30 GM PO ×3 (05:56→21:28)
[2019-12-23 06:35] LABS: Absolute Neutrophil Count 1.9 X10^3/uL (2.0-7.7); Basophil# 0.04 X10^3/uL; Eosinophil# 0.23 X10^3/uL; Eosinophils% 5.6 % (0-5); Hematocrit 40.7 % (40-54); Hemoglobin 13.6 g/dL (13.0-16.5); Lymphocyte % 31.5 % (19-41); Mean Corp Hgb Conc 33.4 g/dL (32-36); Mean Corpuscular Hgb 32.9 pg (27.0-32.0); Mean Corpuscular Volume 98.3 fL (80-94); Monocyte# 0.65 X10^3/uL; Monocyte% 15.7 % (0-10); NRBC Flagged by Analyzer 0 % (0-5); Platelet Count 105 K/mm3 (150-450); RBC Distribution Width CV 13.4 % (11.6-14.6); RBC Distribution Width SD 48.4 fl (35.1-43.9); Red Blood Count 4.14 M/mm3 (4.6-6.2); White Blood Count 4.1 K/mm3 (4.4-11.0)
[2019-12-23 07:03] LABS: ALB/GLOB Ratio 0.7 RATIO (0.9-2.4); AST(SGOT) 27 U/L (15-37); Alanine Aminotransfer ALT/SGPT 14 U/L (16-61); Albumin, Serum 2.4 g/dL (3.2-5.0); Alkaline Phosphatase 90 U/L (45-117); Anion Gap 5 (5-15); BUN 11 mg/dL (7-18); BUN/Creat Ratio 13.1 RATIO (10-20); Chloride 112 mmol/L (98-107); Creatinine, Serum 0.84 mg/dL (0.70-1.30); EST Glomerular Filtration Rate 99 mL/min (>60); Est Glom Filt Rate - Afr Amer 120 mL/min (>60); Estimated Creatinine Clearance 100.85 ml/min; Globulin 3.5 g/dL (2.2-4.2); Glucose 103 mg/dL (74-106); Potassium 3.9 mmol/L (3.5-5.1); Protein, Total 5.9 g/dL (6.4-8.2); Sodium Level 143 mmol/L (136-145)
[2019-12-23 08:29] VITALS: PULSE 80
[2019-12-23] MEDS: Pantoprazole Sodium 40 MG Tablet PO (08:38)
[2019-12-23] MEDS: Enoxaparin 40 MG/0.4 ML Syringe SC (08:38)
[2019-12-23] MEDS: rifAXIMin 550 MG Tablet PO ×2 (08:38→21:27)
[2019-12-23] MEDS: Lisinopril 40 MG Tablet PO (08:38)
[2019-12-23 13:42] VITALS: BP 163/75; PULSE 75; RESP 18; TEMP 36.6; O2SAT 99
--- NOTE | 2019-12-23 16:36 | PN_ITS ---
Subjective: Feeling better and mental status is much better overall. Did not have the money to pay for the rifaximin and that is why he wasn't taking it as prescribed Vitals/I&O's: Vital Signs Temp Pulse Resp BP Pulse Ox 97.8 F 75 18 163/75 H 99 12/23/19 13:42 12/23/19 13:42 12/23/19 13:42 12/23/19 13:42 12/23/19 13:42 Oxygen Delivery Method Room Air Weight: 144 kg Body Mass Index (BMI) 44.2 Finger Stick Blood Glucose 93 Intake and Output for Last 24 Hours 12/21/19 12/22/19 12/24/19 23:59 23:59 00:59 Intake Total 475 / 715 1040 / 1040 Output Total 200 / 600 1750 / 1750 Balance 275 / 115 -710 / -710 General: Alert, Oriented x3, Cooperative, No apparent distress, Well developed, Well nourished, - - sitting up in the chair, watching TV, Speech slurred but appears to be baseline HEENT: Atraumatic, PERRLA, EOMI, Normocephalic, EAC Clear Oral: Moist Mucosa, No Gingival or Mucosal Lesions/ Ulcerations, - - poor dentition, mallampati 3 Neck: Supple, No JVD, Negative Hepatojugular Reflux, No Nodes, No Nuchal Rigidity, Trachea Midline, Thyroid Normal Size and Texture Lungs: Clear to auscultation, Normal air movement, No rhonchi, No wheeze, No rales Cardiovascular: Regular rate, Regular Rhythm, Normal S1, Normal S2, No murmurs, No Ectopic Activity, No rub noted, No Gallop Abdomen: Bowel Sounds Present, Soft, Non Tender, Non-Distended, Obese, No hernias noted Extremities: No clubbing, No cyanosis, Edema - trace B LE Skin: No rashes, No breakdown Musculoskeletal: No Tenderness to Palpation of Joints or Extremities, No Muscle Wasting Lymphatic: No Cervical, Supraclavicular, or Inguinal Adenopathy Neurological: Cranial nerves II-XII grossly intact, Deep Tendon Reflexes 2+/4 and Symmetrical, Neuro grossly intact, - - mild generalized weakness, using walker to ambulate Psych/Mental Status: Normal Affect, Appropriate Laboratory Results 12/23/19 05:43: Ammonia 97.0 H 12/23/19 05:43: WBC 4.1 L, RBC 4.14 L, Hgb 13.6, Hct 40.7, MCV 98.3 H, MCH 32.9 H, MCHC 33.4, RDW Std Deviation 48.4 H, RDW Coeff of Reji 13.4, Plt Count 105 L, MPV 9.0, Immature Gran % (Auto) 0.200, Neut % (Auto) 46.0 L, Lymph % (Auto) 31.5, [place] % (Auto) 15.7 H, Eos % (Auto) 5.6 H, Baso % (Auto) 1.0, Absolute Neuts (auto) 1.9 L, Absolute Lymphs (auto) 1.30, Nucleated RBC % 0 12/23/19 05:43: Sodium 143, Potassium 3.9, Chloride 112 H, Carbon Dioxide 26.0, Anion Gap 5, BUN 11, Creatinine 0.84, Estim Creat Clear Calc 100.85, Est GFR (MDRD) Af Amer 120, Est GFR (MDRD) Non-Af 99, BUN/Creatinine Ratio 13.1, Glucose 103, Calcium 8.0 L, Total Bilirubin 1.20 H, AST 27, ALT 14 L, Alkaline Phos phatase 90, Total Protein 5.9 L, Albumin 2.4 L, Globulin 3.5, Albumin/Globulin Ratio 0.7 L Current Medications Acetaminophen (Tylenol) 650 mg PO Q6H PRN PRN PRN Reason: Pain Score 1-10/Temp > 100.7 F Enoxaparin Sodium (Lovenox) 40 mg SC DAILY [facility] Last Admin: 12/23/19 08:38 Dose: 40 mg Documented by: Glucagon () 1 mg IM .X1 PRN PRN Reason: Hypoglycemia Hydralazine HCl (Apresoline Iv) 5 mg IV Q4H PRN PRN PRN Reason: SBP > 160 Dextrose (Dextrose 10%-Water) 250 mls @ 999 mls/hr IV .Q16M PRN; Protocol PRN Reason: HYPOGLYCEMIA Lactulose (Chronulac, Cephulac) 30 gm PO TID [facility] Last Admin: 12/23/19 13:48 Dose: 30 gm Documented by: Lisinopril (Zestril) 40 mg PO DAILY [facility] Last Admin: 03/08/20 08:38 Dose: 40 mg Documented by: Melatonin (Melatonin) 3 mg PO QHS PRN PRN PRN Reason: INSOMNIA Ondansetron HCl (Zofran) 4 mg IV Q8H PRN PRN PRN Reason: NAUSEA/VOMITING Pantoprazole Sodium (Protonix) 40 mg PO DAILY [facility] Last Admin: 12/23/19 08:38 Dose: 40 mg Documented by: Rifaximin (Xifaxan) 550 mg PO BID [facility] Last Admin: 12/23/19 08:38 Dose: 550 mg Documented by: Sodium Chloride () 10 - 40 ml IV UD PRN PRN Reason: SALINE FLUSH STROKE Vital Signs/Narrative: Vital Signs Temp Pulse Resp BP Pulse Ox 12/23/19 13:42 97.8 F 75 18 163/75 H 99 Medical Necessity - Tobacco Use Smoking Status: Never smoker Tobacco Use: Non-smoker Assessment/Plan All Active Problems Hepatic encephalopathy (Acute) Acute hepatic encephalopathy (Acute) Cellulitis (Resolved) Chest pain (Resolved) Cholecystitis (Resolved) Hepatic encephalopathy (Resolved) Hyperammonemia (Resolved) Acute on Chronic Hepatic Encephalopathy -improving, -H/o BOOTHE cirrhosis, hepatic encephalopathy, missed doses of lactulose and rifaximin (ran out for mos) -ammonia is trending down--> no need to check any further -continue scheduled Lactulose, rifaximin -goal 3 BM daily -continue to follow clinically -consult to SW to help get meds at home GERD -PPI Thrombocytopenia -suspect related to liver disease Hypertension -not at goal -continue on Lisinopril and hydralazine prn -add Norvasc 5 mg in am Morbid obesity -BMI 44.3 -lifestyle modification and wgt loss recommended SANTHOSH -CPAP QHS DVT Prophylaxis -Lovenox SC Inpatient E&M: 71419 [facility] Hosp L3
[2019-12-23 20:14] VITALS: BP 152/99; PULSE 84; RESP 18; TEMP 36.8; O2SAT 98
[2019-12-24 02:44] VITALS: BP 147/95; PULSE 80; RESP 18; TEMP 36.8; O2SAT 97
[2019-12-24] MEDS: Lactulose 20 GM/30 ML UDC 30 GM PO ×2 (05:02→15:22)
[2019-12-24 06:45] LABS: Absolute Lymphocyte Count 1.33 X10^3/uL (0.83-4.51); Absolute Neutrophil Count 2.5 X10^3/uL (2.0-7.7); Basophil# 0.06 X10^3/uL; Basophil% 1.3 % (0-1); Eosinophil# 0.24 X10^3/uL; Hemoglobin 13.8 g/dL (13.0-16.5); Lymphocyte # 1.33 X10^3/ul (4.0); Lymphocyte % 27.7 % (19-41); Mean Corp Hgb Conc 33.7 g/dL (32-36); Mean Corpuscular Hgb 33.1 pg (27.0-32.0); Mean Corpuscular Volume 98.3 fL (80-94); Mean Platelet Vol. 9.1 fl (6.2-12.0); Monocyte# 0.67 X10^3/uL; NRBC Flagged by Analyzer 0 % (0-5); Neutrophil # 2.49 X10^3/uL (2.7-7.7); Neutrophil % 51.8 % (47-70); Platelet Count 122 K/mm3 (150-450); RBC Distribution Width CV 13.2 % (11.6-14.6); RBC Distribution Width SD 48.1 fl (35.1-43.9); Red Blood Count 4.17 M/mm3 (4.6-6.2); White Blood Count 4.8 K/mm3 (4.4-11.0)
[2019-12-24 07:06] LABS: Anion Gap 3 (5-15); BUN 13 mg/dL (7-18); BUN/Creat Ratio 15.7 RATIO (10-20); Calcium,Total 8.3 mg/dL (8.5-10.1); Chloride 111 mmol/L (98-107); Creatinine, Serum 0.83 mg/dL (0.70-1.30); EST Glomerular Filtration Rate 101 mL/min (>60); Est Glom Filt Rate - Afr Amer 122 mL/min (>60); Estimated Creatinine Clearance 102.06 ml/min; Glucose 95 mg/dL (74-106); Sodium Level 141 mmol/L (136-145)
[2019-12-24] MEDS: Acetaminophen 325 MG Tablet 650 MG PO (07:16)
[2019-12-24 09:30] VITALS: BP 138/67; PULSE 82; RESP 18; TEMP 36.5; O2SAT 93
[2019-12-24] MEDS: Lisinopril 40 MG Tablet PO (09:33)
[2019-12-24] MEDS: rifAXIMin 550 MG Tablet PO (09:33)
[2019-12-24] MEDS: Pantoprazole Sodium 40 MG Tablet PO (09:33)
[2019-12-24] MEDS: Enoxaparin 40 MG/0.4 ML Syringe SC (09:34)
[2019-12-24] MEDS: amLODIPine 5 MG Tablet PO (09:36)
--- NOTE | 2019-12-24 10:31 | PCM.PN.HOSP ---
Subjective: States that his was in the ED last night but was d/c home. He feels like he is much better and anxious to go home. Thinks his copay was $400 for a 3 mos supply of rifaximin. Had 2 BM this am. Vitals/I&O's: Vital Signs Temp Pulse Resp BP Pulse Ox 97.7 F L 82 18 138/67 H 93 12/24/19 09:30 12/24/19 09:30 12/24/19 09:30 12/24/19 09:30 12/24/19 09:30 Oxygen Delivery Method Room Air Weight: 144 kg Body Mass Index (BMI) 44.2 Finger Stick Blood Glucose 93 Intake and Output for Last 24 Hours 12/22/19 12/23/19 12/24/19 22:59 23:59 23:59 Intake Total 250 / 250 Output Total 350 / 350 Balance -100 / -100 General: Alert, Oriented x3, Cooperative, No apparent distress, Well developed, Well nourished, - - speech is somewhat slurred-this is baseline Lungs: Clear to auscultation, Normal air movement, No rhonchi, No wheeze, No rales, Diminished, Rales Cardiovascular: Regular rate, Regular Rhythm, Normal S1, Normal S2, No murmurs, No Ectopic Activity, No rub noted, No Gallop Abdomen: Bowel Sounds Present, Soft, Non Tender, Non-Distended, No Hepato-splenomegaly, Obese, No hernias noted Extremities: No clubbing, No cyanosis, Capillary Refill Less than 3 Seconds, Edema - trace Psych/Mental Status: Normal Affect, Appropriate, Alert and oriented to time, place, person, mood and affect Laboratory Results 12/24/19 06:00: WBC 4.8, RBC 4.17 L, Hgb 13.8, Hct 41.0, MCV 98.3 H, MCH 33.1 H, MCHC 33.7, RDW Std Deviation 48.1 H, RDW Coeff of Reji 13.2, Plt Count 122 L, MPV 9.1, Immature Gran % (Auto) 0.200, Neut % (Auto) 51.8, Lymph % (Auto) 27.7, [place] % (Auto) 14.0 H, Eos % (Auto) 5.0, Baso % (Auto) 1.3 H, Absolute Neuts (auto) 2.5, Absolute Lymphs (auto) 1.33, Nucleated RBC % 0 12/24/19 06:00: Sodium 141, Potassium 4.0, Chloride 111 H, Carbon Dioxide 27.0, Anion Gap 3 L, BUN 13, Creatinine 0.83, Estim Creat Clear Calc 102.06, Est GFR (MDRD) Af Amer 122, Est GFR (MDRD) Non-Af 101, BUN/Creatinine Ratio 15.7, Glucose 95, Calcium 8.3 L Current Medications Acetaminophen (Tylenol) 650 mg PO Q6H PRN PRN PRN Reason: Pain Score 1-10/Temp > 100.7 F Last Admin: 12/24/19 07:16 Dose: 650 mg Documented by: Amlodipine Besylate (Norvasc) 5 mg PO DAILY [facility] Last Admin: 12/24/19 09:36 Dose: 5 mg Documented by: Enoxaparin Sodium (Lovenox) 40 mg SC DAILY [facility] Last Admin: 12/24/19 09:34 Dose: 40 mg Documented by: Glucagon () 1 mg IM .X1 PRN PRN Reason: Hypoglycemia Hydralazine HCl (Apresoline Iv) 5 mg IV Q4H PRN PRN PRN Reason: SBP > 160 Dextrose (Dextrose 10%-Water) 250 mls @ 999 mls/hr IV .Q16M PRN; Protocol PRN Reason: HYPOGLYCEMIA Lactulose (Chronulac, Cephulac) 30 gm PO TID [facility] Last Admin: 12/24/19 05:02 Dose: 30 gm Documented by: Lisinopril (Zestril) 40 mg PO DAILY [facility] Last Admin: 12/24/19 09:33 Dose: 40 mg Documented by: Melatonin (Melatonin) 3 mg PO QHS PRN PRN PRN Reason: INSOMNIA Ondansetron HCl (Zofran) 4 mg IV Q8H PRN PRN PRN Reason: NAUSEA/VOMITING Pantoprazole Sodium (Protonix) 40 mg PO DAILY [facility] Last Admin: 12/24/19 09:33 Dose: 40 mg Documented by: Rifaximin (Xifaxan) 550 mg PO BID [facility] Last Admin: 12/24/19 09:33 Dose: 550 mg Documented by: Sodium Chloride () 10 - 40 ml IV UD PRN PRN Reason: SALINE FLUSH STROKE Vital Signs/Narrative: Vital Signs Temp Pulse Resp BP Pulse Ox 12/24/19 09:30 97.7 F L 82 18 138/67 H 93 Medical Necessity - Tobacco Use Smoking Status: Never smoker Tobacco Use: Non-smoker Assessment/Plan All Active Problems Hepatic encephalopathy (Acute) Acute hepatic encephalopathy (Acute) Cellulitis (Resolved) Chest pain (Resolved) Cholecystitis (Resolved) Hepatic encephalopathy (Resolved) Hyperammonemia (Resolved) Acute on Chronic Hepatic Encephalopathy -improving, -H/o BOOTHE cirrhosis, hepatic encephalopathy, missed doses of lactulose and rifaximin (ran out for mos) -pt states that he thinks his co-pay was $400 for 3 mos supply -ammonia had trended down and clinically pt is much improved--> no need to check any further -continue scheduled Lactulose, rifaximin -goal 3 BM daily -continue to follow clinically -d/w SW to help get meds at home if able and they are checking into this -if not will have to stop rifaximin and titrate Lactulose as able to maintain GERD -PPI Thrombocytopenia -suspect related to liver disease -stable with slight up trend Hypertension -not at goal -continue on Lisinopril and hydralazine prn -Norvasc 5 mg added this am--> monitor BP Morbid obesity -BMI 44.3 -lifestyle modification and wgt loss recommended SANTHOSH -CPAP QHS DVT Prophylaxis -Lovenox SC Dispo D/C soon if able to get help with meds--> if not this will push back D/C a couple of days
[2019-12-24 11:32] VITALS: O2SAT 94
--- NOTE | 2019-12-24 13:47 | CASEMGMT ---
CARLA GUEVARA Assessment Note Presentation: acute hepatic encephalopathy Intro role of CM and purpose of RN CM assessment to pt. Pt is very difficulted to understand due to slurred speech. Alert, oriented and able to participate partially in assessment. Demographics, PCP and Pharmacy verified. Pt states he is independent @ home, however had difficulty last few days. -Pt voiced concern that he has not taken his Rifaxamin for almost two months (per ) due to cost. They are working with [facility] PCP and SW for financial assist for medication. Call to [facility] to speak with Sindy WEBSTER: states application was denied, but they completed paperwork to appeal. This was submitted recently. Sidny states she will call [facility] and ascertain if appeal was reviewed. CARLA GUEVARA requested she call to update on current status. -Call to w/pt's approval to discuss dc planning. Explained to that they would need to continue to work with PCP and SW @[facility] re: financial assist for medication. Process can be lengthy. states they cannot afford medication, so will not be able to buy. Pt is compliant with lactalose. PCP: Dr. Pedro Pablo Broussard III Specialists: pt states his liver dr moved to [place] so he f/u with PCP only. [facility] Insurance: [facility] Prescription Benefit: yes LNOK : Living Arrangements: Lives independently. States no care needs and agreed. One story home with 3 steps into home. Transportation: drives, but has been driving due to pt's confusion DME: none HHC: none SW: Call to CARLA GUEVARA, message left re: above. May benefit from SW referral for [employer] to see if they would assist with copay for Rifaxamin on dc. Patient DC goals: Home DC PLAN: Home with f/u @ [facility] for R[facility]amin assistance. CARLA GUEVARA advised to contact cm for any concerns/needs that may arise. Luis Antonio FIGUEROA RN ACM
--- NOTE | 2019-12-24 14:33 | CASEMGMT ---
RN CM Note: spoke with Dr. Ga re: Rifaxamin. is aware pt cannot afford copays and [facility] SW is working on appeal. Rifaxmin will be dc'd so physician can evaluate appropriate Lactalose dosage for discharge. Basia charge nurse and CARLA Kaufman CM updated. Luis Antonio DÍAZN RN ACM
--- NOTE | 2019-12-24 15:16 | CASEMGMT ---
Social Work Note Pt's step daughter present at [facility]. SW met with pt's step daughter Tamiac. SW did provide pt's step daughter Tamica with additional financial resources including [employer], [employer] [place] [id number], and [employer] assist. Pt's step daughter Tamica thanked this worker. Shanthi Elias MSW, OIL BURNER SERVICER AND INSTALLER
[2019-12-24 15:20] VITALS: BP 160/80; PULSE 86; RESP 18; TEMP 36.6; O2SAT 96
--- NOTE | 2019-12-24 15:54 | CHAPLAIN ---
Type of Pastoral Visit _x__ Initial Visit ___ Follow-up Visit ___ On-call Visit ___ General Patient Visit ___ Spiritual Assessment ___ Family Conference ___ Bereavement ___ Rapid Response ___ Code Blue ___ Other (describe below) Pastoral Care Referral From _x__ Patient ___ Family ___ Nurse ___ Physician ___ Transmitter Engineer In Charge ___ Thermo Processor ___ Other (describe below) Sacrament/Intervention _x__ Active listening ___ Anointing ___ Hinduism ___ Bereavement ___ Communion ___ Nina exploration ___ ___ Life review _x__ Prayer ___ Reconciliation ___ Sacrament of Sick _x__ Supportive presence ___ Wedding ___ Other (describe below) Pastoral Comments
[2019-12-24 20:35] VITALS: BP 156/91; PULSE 82; RESP 18; TEMP 36.3; O2SAT 98
[2019-12-25 02:56] VITALS: BP 139/89; PULSE 76; RESP 18; TEMP 36.7; O2SAT 97
[2019-12-25] MEDS: Lactulose 20 GM/30 ML UDC 30 GM PO ×2 (05:13→14:26)
[2019-12-25 07:52] VITALS: BP 131/86; PULSE 64; RESP 16; TEMP 36.8; O2SAT 98
[2019-12-25] MEDS: amLODIPine 5 MG Tablet PO (08:06)
[2019-12-25] MEDS: Enoxaparin 40 MG/0.4 ML Syringe SC (08:06)
[2019-12-25] MEDS: Lisinopril 40 MG Tablet PO (08:06)
[2019-12-25] MEDS: Pantoprazole Sodium 40 MG Tablet PO (08:06)
[2019-12-25 10:09] VITALS: BP 131/63; PULSE 83; RESP 18; TEMP 37; O2SAT 97
[2019-12-25 14:25] VITALS: BP 141/74; PULSE 69; RESP 16; TEMP 36.6; O2SAT 95
--- NOTE | 2019-12-25 15:59 | CASEMGMT ---
Case Management Progress Note: This press writer to patient bedside, introduced self and role. Explained/reviewed SHANNON form with patient in regards to current treatment this hospital stay. Informed Outpatient billing is determined by his insurance policy and continual review is conducted to determine any changes in condition that may warrant Inpatient stay. Patient acknowledges and states understanding, denies any questions/concerns. SHANNON form signed by patient and placed in hard chart, patient provided a copy. Vianney Howe RNCM
--- NOTE | 2019-12-25 17:17 | PN_ITS ---
Subjective: Pt states that he is feeling ok. Had 2 BM today so far. Frustrated as he wants to go home but explained that with the dc of Rifaximin that we would have to hold off until tomorrow as his last dose was yesterday. Pt agreeable. Vitals/I&O's: Vital Signs Temp Pulse Resp BP Pulse Ox 97.9 F 69 16 141/74 H 95 12/25/19 14:25 12/25/19 14:25 12/25/19 14:25 12/25/19 14:25 12/25/19 14:25 Oxygen Delivery Method Room Air Weight: 144 kg Body Mass Index (BMI) 44.2 Finger Stick Blood Glucose 93 Intake and Output for Last 24 Hours 12/23/19 12/24/19 12/25/19 23:59 23:59 23:59 Intake Total 1390 / 1390 820 / 820 Output Total 1000 / 1000 400 / 400 Balance 390 / 390 420 / 420 General: Alert, Oriented x3, Cooperative, No apparent distress, Well developed, Well nourished Lungs: Clear to auscultation, Normal air movement, No rhonchi, No wheeze, No rales Cardiovascular: Regular rate, Regular Rhythm, Normal S1, Normal S2, No murmurs, No Ectopic Activity, No rub noted, No Gallop Abdomen: Bowel Sounds Present, Soft, Non Tender, Non-Distended, No Hepato- splenomegaly, Passing Flatus, Obese, No hernias noted Extremities: No clubbing, No cyanosis, No edema Psych/Mental Status: Normal Affect, Appropriate, Alert and oriented to time, place, person, mood and affect Current Medications Acetaminophen (Tylenol) 650 mg PO Q6H PRN PRN PRN Reason: Pain Score 1-10/Temp > 100.7 F Last Admin: 12/24/19 07:16 Dose: 650 mg Documented by: Amlodipine Besylate (Norvasc) 5 mg PO DAILY [facility] Last Admin: 12/25/19 08:06 Dose: 5 mg Documented by: Enoxaparin Sodium (Lovenox) 40 mg SC DAILY [facility] Last Admin: 12/25/19 08:06 Dose: 40 mg Documented by: Glucagon () 1 mg IM .X1 PRN PRN Reason: Hypoglycemia Hydralazine HCl (Apresoline Iv) 5 mg IV Q4H PRN PRN PRN Reason: SBP > 160 Dextrose (Dextrose 10%-Water) 250 mls @ 999 mls/hr IV .Q16M PRN; Protocol PRN Reason: HYPOGLYCEMIA Lactulose (Chronulac, Cephulac) 30 gm PO TID [facility] Last Admin: 12/25/19 14:26 Dose: 30 gm Documented by: Lisinopril (Zestril) 40 mg PO DAILY [facility] Last Admin: 12/25/19 08:06 Dose: 40 mg Documented by: Melatonin (Melatonin) 3 mg PO QHS PRN PRN PRN Reason: INSOMNIA Ondansetron HCl (Zofran) 4 mg IV Q8H PRN PRN PRN Reason: NAUSEA/VOMITING Pantoprazole Sodium (Protonix) 40 mg PO DAILY [facility] Last Admin: 12/25/19 08:06 Dose: 40 mg Documented by: Sodium Chloride () 10 - 40 ml IV UD PRN PRN Reason: SALINE FLUSH STROKE Vital Signs/Narrative: Vital Signs Temp Pulse Resp BP Pulse Ox 12/25/19 14:25 97.9 F 69 16 141/74 H 95 Medical Necessity - Tobacco Use Smoking Status: Never smoker Tobacco Use: Non-smoker Assessment/Plan All Active Problems Hepatic encephalopathy (Acute) Acute hepatic encephalopathy (Acute) Cellulitis (Resolved) Chest pain (Resolved) Cholecystitis (Resolved) Hepatic encephalopathy (Resolved) Hyperammonemia (Resolved) Acute on Chronic Hepatic Encephalopathy -back to baseline -H/o BOOTHE cirrhosis, hepatic encephalopathy, missed doses of lactulose and rifaximin (ran out for mos) -Unable to get help with Rifaximin--> last dose yesterday -ammonia in am to assure that the dose of Lactulose that we have him on is adequate without the rifaximin -continue scheduled Lactulose, rifaximin -goal 3 BM daily -continue to follow clinically GERD -PPI Thrombocytopenia -suspect related to liver disease -stable Hypertension -better to day with addition of Norvasc yesterday -continue on Lisinopril and hydralazine prn -Norvasc 5 mg added this am--> monitor BP Morbid obesity -BMI 44.3 -lifestyle modification and wgt loss recommended SANTHOSH -CPAP QHS DVT Prophylaxis -Lovenox SC Dispo D/C tomorrow if remains stable without Rifaximin Inpatient E&M: [id number] [facility] L2
[2019-12-25 20:12] VITALS: BP 142/65; PULSE 79; RESP 17; TEMP 37.1; O2SAT 97
[2019-12-26 02:48] VITALS: BP 149/82; PULSE 92; RESP 16; TEMP 37.3; O2SAT 98
[2019-12-26] MEDS: Acetaminophen 325 MG Tablet 650 MG PO (03:07)
[2019-12-26] MEDS: Lactulose 20 GM/30 ML UDC 30 GM PO (05:12)
--- NOTE | 2019-12-26 10:02 | DS.PCM_ITS ---
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 WEAKNESS, CONFUSION, HEPATIC ENCEPHALOPATHY RADIATION DOSAGE (If Supplied By Facility): CTDIvol = ( 44.99 ) mGy, DLP = ( 779.24 ) mGycm TECHNIQUE: Transaxial CT imaging of the brain was performed without administration of intravenous contrast material. Individualized dose optimization techniques were used for this CT. COMPARISON: 01/16/2016. FINDINGS: Normal soft tissue structures. Normal calvarium. Normal size ventricles and extra-axial spaces for the patient''s age. Normal white matter tracts of the cerebral hemispheres. Normal basal ganglia and thalami. Normal brainstem. Normal cerebellum. There is no intracranial hemorrhage. There are no findings of an acute ischemic infarction. Normal visualized paranasal sinuses. Opacification of the left mastoid and left middle ear structures. CT/Brain/Head without Contrast IMPRESSION: Normal unenhanced CT scan of the brain. Left-sided mastoid effusion with fluid within the left middle ear, cannot exclude otitis media. STUDY: CT ABDOMEN AND PELVIS WITHOUT CONTRAST REASON FOR EXAM: Male, 59 years old. WEAKNESS, CONFUSION, HEPATIC ENCEPHALOPATHY RADIATION DOSAGE (If Supplied By Facility): CTDIvol = ( 24.18 ) mGy, DLP = ( 1274.56 ) mGycm TECHNIQUE: Transaxial images were obtained from the dome of the diaphragm to the symphysis pubis without oral contrast, and without intravenous contrast. Sagittal and coronal images were reconstructed. Individualized dose optimization techniques were used for this CT. COMPARISON: None. FINDINGS: Mild bilateral lower lobe atelectasis, remainder of the lung bases are clear. The visualized portions of the heart are within normal limits. Normal liver. There are surgical clips in the gallbladder fossa consistent with a prior cholecystectomy. Normal spleen. Normal pancreas. Normal bilateral adrenal glands. Normal right kidney. Normal left kidney. Normal visualized stomach. Normal small intestine. Moderate to abundant fecal debris within the colon which may indicate mild constipation. Mild diverticulosis with no signs of diverticulitis. There are surgical clips in the region of the appendix consistent with a prior appendectomy. There is diffuse atherosclerotic calcification of the abdominal aorta, without a demonstrated aneurysm. Normal inferior vena cava. Normal retroperitoneum. Incompletely distended urinary bladder. Normal abdominal wall. There are diffuse degenerative changes of the visualized lumbar spine. CT/Abdomen/Pelvis without Cont IMPRESSION: Possible mild constipation. No signs of bowel obstruction or focal inflammatory process throughout the gastrointestinal tract. Status post cholecystectomy, remainder of abdominal viscera are unremarkable. NONE Operations: None Summary of Care Provided: Mr Elaine is a 59 year old M who presented to the ED on 12/21/2019 with increased slurred speech and confusion with the feeling that he was off balance. He has know h/o BOOTHE cirrhosis and was to be taking Lactulose BID and Rifaximin but 2/2 financial issues with the copay of the Rifaximin ($400) he was not able to afford it and was only taking his Lactulose. CT of the head an abdomen/pelvis were done upon admission and fairly unremarkable. He was placed back on his rifaximin and lactulose was increased to TID. His initial ammonia was 180 on admission. With the medications, the pt has clinically improved but we were unable to obtain assistance for his Rifaximin so it was discontinued. Pt was followed for 2 days after his dc off of the rifaximin and remained stable. Ammonia on the day of d/c was 77 and MS was at baseline. The pt will take an extra daily dose of his Lactulose and have a goal of 3-4 BM/day. This was d/w the pt and he is agreeable. Of note, his BP was consistently elevated on his home lisinopril and Norvasc was added at 5 mg daily. BP improved. Subjective: Pt states that he is feeling fine and ready to go home. - Physical Exam Vitals/I&O's: Vital Signs Temp Pulse Resp BP Pulse Ox 99.1 F 92 16 149/82 H 98 12/26/19 02:48 12/26/19 02:48 12/26/19 02:48 12/26/19 02:48 12/26/19 02:48 Oxygen Delivery Method Room Air Weight: 144 kg Body Mass Index (BMI) 44.2 Finger Stick Blood Glucose 93 Intake and Output for Last 24 Hours 12/24/19 12/25/19 12/26/19 23:59 23:59 23:59 Intake Total 1390 / 1390 1220 / 1220 1300 / 1300 Output Total 1000 / 1000 400 / 400 650 / 650 Balance 390 / 390 820 / 820 650 / 650 General: Alert, Oriented x3, Cooperative, No apparent distress, Well developed, Well nourished Oral: Moist Mucosa, No Gingival or Mucosal Lesions/ Ulcerations Lungs: Clear to auscultation, Normal air movement, No rhonchi, No wheeze, No rales Cardiovascular: Regular rate, Regular Rhythm, Normal S1, Normal S2, No murmurs, No Ectopic Activity, No rub noted, No Gallop Abdomen: Bowel Sounds Present, Soft, Non Tender, Non-Distended, Passing Flatus, Obese, No hernias noted Extremities: No clubbing, No cyanosis, No edema Neurological: Slurred Speech - back to baseline Psych/Mental Status: Normal Affect, Appropriate, Alert and oriented to time, place, person, mood and affect Laboratory Results 12/26/19 05:44: Ammonia 77.0 H Current Medications Acetaminophen (Tylenol) 650 mg PO Q6H PRN PRN PRN Reason: Pain Score 1-10/Temp > 100.7 F Last Admin: 12/26/19 03:07 Dose: 650 mg Documented by: Amlodipine Besylate (Norvasc) 5 mg PO DAILY [facility] Last Admin: 12/25/19 08:06 Dose: 5 mg Documented by: Enoxaparin Sodium (Lovenox) 40 mg SC DAILY [facility] Last Admin: 12/25/19 08:06 Dose: 40 mg Documented by: Glucagon () 1 mg IM .X1 PRN PRN Reason: Hypoglycemia Hydralazine HCl (Apresoline Iv) 5 mg IV Q4H PRN PRN PRN Reason: SBP > 160 Dextrose (Dextrose 10%-Water) 250 mls @ 999 mls/hr IV .Q16M PRN; Protocol PRN Reason: HYPOGLYCEMIA Lactulose (Chronulac, Cephulac) 30 gm PO TID [facility] Last Admin: 12/26/19 05:12 Dose: 30 gm Documented by: Lisinopril (Zestril) 40 mg PO DAILY [facility] Last Admin: 12/25/19 08:06 Dose: 40 mg Documented by: Melatonin (Melatonin) 3 mg PO QHS PRN PRN PRN Reason: INSOMNIA Ondansetron HCl (Zofran) 4 mg IV Q8H PRN PRN PRN Reason: NAUSEA/VOMITING Pantoprazole Sodium (Protonix) 40 mg PO DAILY [facility] Last Admin: 12/25/19 08:06 Dose: 40 mg Documented by: Sodium Chloride () 10 - 40 ml IV UD PRN PRN Reason: SALINE FLUSH Home Medications: Medications to take at Discharge Lisinopril [Zestril] 40 mg PO DAILY 12/24/15 Lactulose [Chronulac] 30 gm PO BID 01/16/16 Rifaximin [Xifaxan] 550 mg PO BID 11/16/16 Esomeprazole Magnesium 40 mg PO DAILY 08/29/18 Primary Care Physician: Pedro Pablo Broussard III, MD [Primary Care Provider] - Medical Necessity - Tobacco Use Smoking Status: Never smoker Tobacco Use: Non-smoker Meaningful Use Info Meaningful Use Diagnoses (Choose all that apply): None applicable Inpatient E&M: [id number] [facility] Hosp
--- NOTE | 2019-12-26 10:29 | PCM.DC ---
You will use the following diet at home:: Cardiac Your food should be the consistency of: Regular Your liquids should be the consistency of: Regular/Thin Discharge Activity: Return to Normal Activity Call your doctor if you observe: - - increased confusion Allergies/Adverse Reactions: Allergies aspirin Adverse Reaction (Verified 12/21/19 20:31) Upset Stomach Medications to take at Discharge Lisinopril [Zestril] 40 mg PO DAILY 12/24/15 Esomeprazole Magnesium 40 mg PO DAILY 08/29/18 Amlodipine [Norvasc] 5 mg PO DAILY #30 tab 12/26/19 Lactulose [Chronulac] 30 gm PO TID [facility] 12/26/19 The following prescriptions were given: Amlodipine [Norvasc] 5 mg PO DAILY #30 tab Transmission Status: Received by [id number] Primary Care Physician: Pedro Pablo Broussard III, MD [Primary Care Provider] - Please follow up with your Primary Care Physician in: 1 week for hospital f/u Test Results: Test results from this visit will be discussed in further detail at your follow-up appointment, if applicable.
[2019-12-26] MEDS: Pantoprazole Sodium 40 MG Tablet PO (10:44)
[2019-12-26] MEDS: Enoxaparin 40 MG/0.4 ML Syringe SC (10:44)
[2019-12-26] MEDS: Lisinopril 40 MG Tablet PO (10:44)
[2019-12-26] MEDS: amLODIPine 5 MG Tablet PO (10:44)
[2019-12-26 10:59] VITALS: BP 150/62; PULSE 90; RESP 16; TEMP 37; O2SAT 97
== END 2019-12-26 12:38 | disposition home or self-care (01) | DRG 442 ==
LOC: ED 21:55 → MS3 23:01
PROVIDERS: Internal Medicine; Admitting Provider Hospitalist; Emergency Provider Emergency Medicine; PCP Family Medicine; Visit Provider Internal Medicine
DX: K72.90 Hepatic failure, unspecified without coma (principal); Z68.41 Body mass index [BMI] 40.0-44.9, adult; K75.81 Nonalcoholic steatohepatitis (NASH); K74.60 Unspecified cirrhosis of liver; K21.9 Gastro-esophageal reflux disease without esophagitis; E66.01 Morbid (severe) obesity due to excess calories; I10 Essential (primary) hypertension; G47.33 Obstructive sleep apnea (adult) (pediatric); M19.90 Unspecified osteoarthritis, unspecified site; D69.59 Other secondary thrombocytopenia; I69.322 Dysarthria following cerebral infarction; Z87.11 Personal history of peptic ulcer disease
CPT/HCPCS: 36415; 70450; 74176; 80048; 80053; 80076; 82140; 85025; 92507; 92523; 97116; 97162; 97166; 97530; 97535; 99284; J7030; A4216

== ENCOUNTER 2019-12-26 15:19 | Emergency (ER) | payer MEDICARE, SELFPAY ==
[2019-12-21 23:30] VITALS: BMI 44.2
[2019-12-26 15:27] VITALS: BP 125/62; PULSE 110; RESP 30; TEMP 39.4; O2SAT 95; BMI 45.1
--- NOTE | 2019-12-26 15:45 | RAD_ITS ---
STUDY: X-RAY CHEST REASON FOR EXAM: Male, 59 years old. Cellulitis to rt lower leg, SOB, FEVER TECHNIQUE: PA and lateral views of the chest. COMPARISON: 05/30/2018. FINDINGS: Cardiac silhouette unremarkable. Pulmonary vascularity mildly increased. Aorta unremarkable. No focal airspace opacities. No pleural effusions. Upper abdomen unremarkable. Osseous structures intact. No pneumothorax. RAD/Chest PA and Lateral IMPRESSION: Mild pulmonary vascular congestion. Electronically Signed: Js Galvez, at 17:08 EDT Tel , Service support ,
--- NOTE | 2019-12-26 15:46 | VDLE_ITS ---
Reason For Study: Swelling RIGHT GSV is normal. CFV is compressible, spontaneous, phasic, competent and demonstrates normal augmentation. FV is compressible, spontaneous, phasic, competent and demonstrates normal augmentation. POP V is compressible, spontaneous, phasic, competent and demonstrates normal augmentation. T/P Trunk is compressible. PTV is compressible. RT PerV is compressible. Procedure Exam performed portable in ED. The study was technically difficult. A preliminary report was called and/or faxed to ED. Interpretation Summary Deep veins of the right lower extremity are patent and compressible segmentally. There is no evidence of right lower extremity deep vein thrombosis. Valvular competence appears intact within the proximal deep venous system on the right . The right great saphenous vein appears patent and compressible segmentally. Ordering Physician: Newton Baron Referring Physician: Pedro Pablo Broussard III Performed By: Jessica Murphy, KEYUR, RVT
[2019-12-26 16:24] VITALS: BP 106/62; PULSE 91; RESP 19; O2SAT 95
[2019-12-26] MEDS: Acetaminophen 500 MG Tablet 1000 MG PO (16:25)
[2019-12-26 16:35] LABS: Basophil# 0.03 X10^3/uL; Basophil% 0.3 % (0-1); Eosinophil# 0.01 X10^3/uL; Eosinophils% 0.1 % (0-5); Hemoglobin 13.3 g/dL (13.0-16.5); Lymphocyte % 4.6 % (19-41); Mean Corp Hgb Conc 34.1 g/dL (32-36); Mean Corpuscular Hgb 33.7 pg (27.0-32.0); Mean Corpuscular Volume 98.7 fL (80-94); Mean Platelet Vol. 8.9 fl (6.2-12.0); Monocyte# 1.16 X10^3/uL; Monocyte% 10.8 % (0-10); NRBC Flagged by Analyzer 0 % (0-5); Neutrophil # 9.04 X10^3/uL (2.7-7.7); Neutrophil % 83.8 % (47-70); POSITIVE DIFFERENTIAL YES; Platelet Count 107 K/mm3 (150-450); RBC Distribution Width CV 13.4 % (11.6-14.6); RBC Distribution Width SD 48.9 fl (35.1-43.9); Red Blood Count 3.95 M/mm3 (4.6-6.2); White Blood Count 10.8 K/mm3 (4.4-11.0)
[2019-12-26 16:43] LABS: International Normalized Ratio 1.4; Prothrombin Time (Protime)PT. 17.2 SECONDS (11.7-14.9)
[2019-12-26 16:44] LABS: Partial Thromboplast Time 42.9 Seconds (24.1-36.2)
[2019-12-26 16:46] LABS: Differential Indicated SCAN CRITERIA MET
[2019-12-26 16:49] LABS: ALB/GLOB Ratio 0.7 RATIO (0.9-2.4); AST(SGOT) 36 U/L (15-37); Alanine Aminotransfer ALT/SGPT 13 U/L (16-61); Albumin, Serum 2.6 g/dL (3.2-5.0); Alkaline Phosphatase 87 U/L (45-117); Anion Gap 3 (5-15); BUN 22 mg/dL (7-18); BUN/Creat Ratio 19.6 RATIO (10-20); Calcium,Total 8.6 mg/dL (8.5-10.1); Chloride 112 mmol/L (98-107); Creatinine, Serum 1.12 mg/dL (0.70-1.30); EST Glomerular Filtration Rate 71 mL/min (>60); Est Glom Filt Rate - Afr Amer 86 mL/min (>60); Estimated Creatinine Clearance 75.64 ml/min; Globulin 3.6 g/dL (2.2-4.2); Glucose 103 mg/dL (74-106); Potassium 4.2 mmol/L (3.5-5.1); Protein, Total 6.2 g/dL (6.4-8.2); Sodium Level 142 mmol/L (136-145)
[2019-12-26 16:58] LABS: Differential Comment SCANNED
[2019-12-26 17:21] LABS: Lactic Acid 1.9 mmol/L (0.4-1.9)
[2019-12-26 17:40] VITALS: BP 106/54; PULSE 106; RESP 93; TEMP 37.9; O2SAT 20
[2019-12-26 17:41] VITALS: BP 106/54; PULSE 98; RESP 28; TEMP 37.9; O2SAT 93
[2019-12-26 17:46] LABS: Bacteria 0 SEEN /hpf (None Seen); Squamous Epithelial Cells - UA 0 SEEN /hpf (0-5); White Blood Cells 0 SEEN /hpf (0-5)
[2019-12-26 17:49] LABS: Color, Urine Amber (Yellow); Glucose, Dipstick Normal (Normal); Ketone-Dipstick 5 mg/dl (Negative); Leukocyte Esterase-Dipstick 25 /ul (Negative); Nitrite-Dipstick Negative (Negative); Occult Blood-Urine 50 /ul (Negative); Protein-Dipstick 30 mg/dl (Negative); Specific Gravity, Urine 1.015 (1.002-1.030); Urine Bilirubin Dipstick Negative (Negative); Urine Clarity Clear (Clear); Urine Urobilinogen Normal (Normal)
[2019-12-26 18:02] LABS: Red Blood Cells-Urine 0-5 SEEN /hpf (0-5)
[2019-12-26 18:03] LABS: Mucous, Urine 2+ /hpf (<or=2+)
--- NOTE | 2019-12-26 18:41 | ED.DCSUM_ITS ---
- ER Visit Summary Date of Service: 12/26/19 Chief Complaint: Fever History of Present Illness: The patient is a [address] Pedro Pablo Broussard. The patient was admitted to the hospital from December 20 to today for hepatic encephalopathy. He has a history of BOOTHE. He was discharged at approximately noon today. Since being home the patient has developed a fever. He has also complains of chills. Patient reports he has a rash to his right leg that he noticed after getting home. He is having diarrhea, but he is on lactulose. Is only had 1 episode today. He denies any blood in the stools or black tarry stools. He reports he has a cough every once in a while. He denies any chest pain or shortness of breath. He denies any dysuria or frequency. Physical Examination: Vitals: 102.9, 125/62, 110, 30, 95% on room air which is not hypoxic. General: Well-nourished and well-developed. Head: Normocephalic atraumatic. Neck: Supple, no lymphadenopathy. No JVD. Nontender. Cardiovascular: Regular rate and rhythm. No murmurs. Respiratory: No respiratory distress. Clear to auscultation bilaterally. Abdominal: Soft, nontender, nondistended, normal bowel sounds. No guarding, rebound, or peritoneal signs. Back: Nontender. Extremities: 2+ pitting edema lower extremities bilaterally. He has chronic venous stasis changes on the left. On the right there is ecchymosis on the anterior surface of his leg. He denies having SCDs on while he was here. He does have slight erythema to the top of his foot. There is a 2+ dorsalis pedis pulse bilaterally. He has mild tenderness palpation of his right calf. In the groin beneath the flap of his abdomen and his pubic hair as well as in the inguinal region bilaterally there is an obvious candidal infection with slight excoriation. There is no induration or fluctuance.. Skin: Normal color, no rash. Neurologic: Alert and oriented ?3. Cranial nerves II through XII are intact. Normal strength and sensation. Psych: Normal affect. Test Results: CBC is marked for platelets 107, segmented 54, lymphs at 5, monocytes 11. Chem-7 is more for chloride 112 BUN of 22. Lactic acid is 1.9. LFTs show an ALT of 13 and total bili of 2.0. INR is 1.4. Chest x-ray shows no infiltrate. Right lower extremity Doppler is negative. Influenza is negative. Emergency Department Course and Treatment: Patient was given a dose of Diflucan p.o. and vancomycin IV. He is given Tylenol p.o. He is resting comfortably and would like to go home. Treatment Plan: I do not think that the erythema to his foot is what is giving a fever of 103. Also be candidal infection to his groin does not look like that would give him a fever of 103 either. I suspect that he may have the flu. Regardless patient states that he would like to go home. He is given a prescription for doxycycline for the erythema and Diflucan once weekly x4 weeks as well as nystatin powder for the yeast infection. He will be discharged instructions follow-up Dr. Pedro Pablo Broussard III in 2 days for repeat exam. Return to the emergency department for any worsening symptoms. Disposition: To home in improved and stable condition. Impression: 1. Cellulitis right foot. 2. Alf intertrigo. 3. Fever. This note was generated with [employer] dictation software. It may contain incorrect words, spelling, and punctuation that were not noted in review of the chart prior to signing ED Disposition - Plan for ED Patient: Instructions: Cellulitis, ALF SKIN INFECTION (Adult) Prescriptions: Fluconazole [Diflucan] 150 mg PO QWEEK #4 tab Prescription Printed Doxycycline 100 mg PO BID #14 cap Prescription Printed Nystatin Powder [Mycostatin Powder] 1 applic TOPICAL TID #1 bottle Prescription Printed Referrals: Pedro Pablo Broussard III, MD [Primary Care Provider] - 2 Days for wound check
[2019-12-26] MEDS: Fluconazole 100 MG Tablet 200 MG PO (19:17)
[2019-12-26 19:32] VITALS: BP 126/65; PULSE 94; RESP 21; TEMP 37.1; O2SAT 98
--- NOTE | 2019-12-27 06:21 | ED.RN ---
PER DR GROSS, PT CONTACTED TO RETURN TO THE ER FOR ADMISSION.
== END 2019-12-26 19:32 | disposition home or self-care (01) ==
LOC: ED 15:51
PROVIDERS: Emergency Provider Emergency Medicine; PCP Family Medicine
DX: L03.115 Cellulitis of right lower limb (principal); B37.2 Candidiasis of skin and nail; R50.9 Fever, unspecified; K21.9 Gastro-esophageal reflux disease without esophagitis; I10 Essential (primary) hypertension; I87.8 Other specified disorders of veins; K75.81 Nonalcoholic steatohepatitis (NASH); S80.11XA Contusion of right lower leg, initial encounter; M19.90 Unspecified osteoarthritis, unspecified site; G47.33 Obstructive sleep apnea (adult) (pediatric); Y93.9 Activity, unspecified; Y92.9 Unspecified place or not applicable; X58.XXXA Exposure to other specified factors, initial encounter; Z86.73 Personal history of transient ischemic attack (TIA), and cerebral infarction without residual deficits; Z79.899 Other long term (current) drug therapy
CPT/HCPCS: 71046; 80053; 81001; 83605; 85025; 85610; 85730; 87040; 87086; 87804; 93971; 96365; 96366; 99285; J7030; J7040; A4216

== ENCOUNTER 2019-12-27 08:31 | Inpatient (IN) | payer MEDICARE, SELFPAY ==
[2019-12-26 15:27] VITALS: BMI 45.1
[2019-12-27] VITALS (11 sets, daily range): BP systolic 111–155; BP diastolic 45–83; PULSE 77–97; RESP 16–20; TEMP 36.6–37.3; O2SAT 94–99; BMI 43.9; BMI 45.6
--- NOTE | 2019-12-27 08:51 | ED.DCSUM_ITS ---
History of Present Illness Chief Complaint: Wound Informant: Patient Onset: Days Context: Gradual Onset Timing: Continuous Narrative: Patient is a 59-year-old male with history of hepatic encephalopathy secondary to Ricci presenting back to the ER with positive blood cultures. Patient was seen in the ER yesterday for fever was found to have cellulitis of his right lower extremity. He is also found to have candidiasis intertrigo but was not thought to be associated with his fever. Blood cultures were pending and patient requested discharge home yesterday. Blood cultures resulted with gram- negative rods and patient was instructed to return to the emergency room. Patient believes that he is continued to have fevers at home but is not sure. He said continued redness of his right lower leg as well as warmth. He is not having significant pain. He continues to have a cough for states that this is a chronic cough and unchanged. He does have some slight dyspnea on exertion but again this is chronic and unchanged. Patient also had a negative duplex scan of his lower extremities yesterday. He is not able to get his antibiotics filled because his could not pick him up. He only had the antibiotics he received in the emergency room yesterday. Past Medical History - Allergies and Home Meds Allergies/Adverse Reactions: Allergies aspirin Adverse Reaction (Verified 12/27/19 08:35) Upset Stomach Primary Care Physician: Pedro Pablo Broussard III, MD [Primary Care Provider] - Past Medical History: - - Ricci, history of hepatic encephalopathy, history of pneumonia, GERD, SANTHOSH, GERD, hypertension Surgical History: cholecystectomy, total hip arthroplasty, - - bilateral knee replacement, liver bx Lives: Spouse/ Significant Other Smoking Status: Never smoker Alcohol: None Drugs: None - Family History Maternal Family History: Reports: - - Denies any maternal medical history. Paternal Family History: Reports: Diabetes, Dementia Review of Systems General: Reports: Fever, Malaise. Denies: Chills, Sweats Eyes: Denies: Visual changes - bilaterally, Diplopia ENT: Denies: Rhinorrhea, Sore throat Cardiovascular: Denies: Chest pain, Palpitations Respiratory: Reports: Dyspnea - Chronic, unchanged. Denies: Cough, Dyspnea on exertion Gastrointestinal: Denies: Abdominal pain, Nausea, Vomiting, Diarrhea, Melena, Hematochezia Genitourinary: Denies: Dysuria, Hematuria, Frequency Musculoskeletal: Denies: Back pain, Extremity Pain Skin: Reports: Rash - Groin area as well as right lower leg. Denies: Wounds Neurological: Denies: Headache, Weakness, Numbness Physical Exam Vital Signs/Narrative: Vital Signs Temp Pulse Resp BP Pulse Ox 12/27/19 08:32 98.2 F 97 20 H 155/83 H 94 Inital Vital Signs reviewed: Yes General: Well nourished, Well developed, Obese, No Acute Distress Head: Normocephalic, Atraumatic Eyes: Perrl, EOMI ENT: Moist mucous membranes, No rhinorrhea Neck: Supple, Nontender Cardiovascular: Regular rate, Regular rhythm, No murmurs, - - 2+ bilateral DP pulses, brisk capillary refill Respiratory: No distress, CTA bilaterally, Chest nontender Abdomen: Soft, Nontender, Nondistended, Normal bowel sounds Back: Nontender, Normal Inspection Extremities: Nontender, - - Mild edema of the lower extremities, nonpitting, right greater than left. Negative for: Calf Tenderness Skin: Normal color, Rash - Chronic venous stasis changes bilaterally of the lower legs however on right lower extremity patient has erythematous changes as well as warmth that is asymmetric most pronounced over anterior amaya area, - - Erythema of the groin and skin folds with satellite lesions consistent with fungal infection Neurological: Alert, Oriented x3, Cranial nerves II-XII grossly intact, Normal Strength, Normal Sensation Psychological: Normal affect, Normal Mood Diagnostic/Tx/Re-eval Laboratory Data 12/27/19 12/27/19 12/27/19 09:04 09:04 09:04 WBC 11.4 H RBC 3.83 L Hgb 12.5 L Hct 38.0 L MCV 99.2 H MCH 32.6 H MCHC 32.9 RDW Std Deviation 50.0 H RDW Coeff of Reji 13.6 Plt Count 109 L MPV 8.8 Immature Gran % (Auto) 0.500 Neut % (Auto) 82.0 H Lymph % (Auto) 6.9 L Humphreys % (Auto) 9.8 Eos % (Auto) 0.4 Baso % (Auto) 0.4 Absolute Neuts (auto) 9.4 H Absolute Lymphs (auto) 0.79 L Nucleated RBC % 0 PT 18.9 H INR 1.6 APTT 43.1 H Sodium 141 Potassium 3.9 Chloride 110 H Carbon Dioxide 29.0 Anion Gap 2 L BUN 24 H Creatinine 1.26 Estim Creat Clear Calc 67.23 Est GFR (MDRD) Af Amer 75 Est GFR (MDRD) Non-Af 62 BUN/Creatinine Ratio 19.0 Glucose 108 H Lactic Acid Calcium 8.0 L Total Bilirubin 2.60 H AST 31 ALT 14 L Alkaline Phosphatase 85 Total Protein 5.9 L Albumin 2.4 L Globulin 3.5 Albumin/Globulin Ratio 0.7 L 12/27/19 09:04 WBC RBC Hgb Hct MCV MCH MCHC RDW Std Deviation RDW Coeff of Reji Plt Count MPV Immature Gran % (Auto) Neut % (Auto) Lymph % (Auto) Humphreys % (Auto) Eos % (Auto) Baso % (Auto) Absolute Neuts (auto) Absolute Lymphs (auto) Nucleated RBC % PT INR APTT Sodium Potassium Chloride Carbon Dioxide Anion Gap BUN Creatinine Estim Creat Clear Calc Est GFR (MDRD) Af Amer Est GFR (MDRD) Non-Af BUN/Creatinine Ratio Glucose Lactic Acid 1.4 Calcium Total Bilirubin AST ALT Alkaline Phosphatase Total Protein Albumin Globulin Albumin/Globulin Ratio - Medical Decision Making Patient is evaluated for positive blood cultures. He appears to have cellulitis of his right lower leg. Patient started on Zosyn to cover the gram-negative rods. He does not have other signs of sepsis. Given that he does have bacteremia do think he benefit from IV antibiotics. Patient is agreeable this plan. He is otherwise stable in the emergency room. I did obtain repeat cultures and a repeat lactate. Lactate was normal today. Patient currently does not meet criteria for sepsis despite his bacteremia. Case discussed with Dr. Knutson who admit the patient. Patient is stable at time of disposition. ED Disposition - Plan for ED Patient: Disposition: Acute Care Hospital [facility] Diagnosis: Bacteremia, Cellulitis of right lower leg Referrals: Pedro Pablo Broussard III, MD [Primary Care Provider] -
[2019-12-27 09:19] LABS: Absolute Lymphocyte Count 0.79 X10^3/uL (0.83-4.51); Absolute Neutrophil Count 9.4 X10^3/uL (2.0-7.7); Basophil# 0.04 X10^3/uL; Basophil% 0.4 % (0-1); Eosinophil# 0.04 X10^3/uL; Eosinophils% 0.4 % (0-5); Hemoglobin 12.5 g/dL (13.0-16.5); Lymphocyte # 0.79 X10^3/ul (4.0); Lymphocyte % 6.9 % (19-41); Mean Corp Hgb Conc 32.9 g/dL (32-36); Mean Corpuscular Hgb 32.6 pg (27.0-32.0); Mean Corpuscular Volume 99.2 fL (80-94); Mean Platelet Vol. 8.8 fl (6.2-12.0); Monocyte# 1.12 X10^3/uL; Monocyte% 9.8 % (0-10); NRBC Flagged by Analyzer 0 % (0-5); Neutrophil # 9.35 X10^3/uL (2.7-7.7); Platelet Count 109 K/mm3 (150-450); RBC Distribution Width CV 13.6 % (11.6-14.6); Red Blood Count 3.83 M/mm3 (4.6-6.2); White Blood Count 11.4 K/mm3 (4.4-11.0)
[2019-12-27 09:28] LABS: International Normalized Ratio 1.6; Prothrombin Time (Protime)PT. 18.9 SECONDS (11.7-14.9)
[2019-12-27 09:29] LABS: Partial Thromboplast Time 43.1 Seconds (24.1-36.2)
[2019-12-27 09:31] LABS: ALB/GLOB Ratio 0.7 RATIO (0.9-2.4); AST(SGOT) 31 U/L (15-37); Alanine Aminotransfer ALT/SGPT 14 U/L (16-61); Albumin, Serum 2.4 g/dL (3.2-5.0); Alkaline Phosphatase 85 U/L (45-117); Anion Gap 2 (5-15); BUN 24 mg/dL (7-18); Chloride 110 mmol/L (98-107); Creatinine, Serum 1.26 mg/dL (0.70-1.30); EST Glomerular Filtration Rate 62 mL/min (>60); Est Glom Filt Rate - Afr Amer 75 mL/min (>60); Estimated Creatinine Clearance 67.23 ml/min; Globulin 3.5 g/dL (2.2-4.2); Glucose 108 mg/dL (74-106); Potassium 3.9 mmol/L (3.5-5.1); Protein, Total 5.9 g/dL (6.4-8.2); Sodium Level 141 mmol/L (136-145)
[2019-12-27 09:38] LABS: Lactic Acid 1.4 mmol/L (0.4-1.9)
--- NOTE | 2019-12-27 11:57 | PCM.HP.STD ---
History of Present Illness Date of Admission: 12/27/19 Chief Complaint: left leg redness and swelling The patient is a 59 year old M with an extensive past medical history as above was admitted through the ED on 12/27/2019 with a complaint of left lower extremity redness and swelling as well as pain. Patient was just discharged from [facility] on 12/26/2019 after he was admitted and managed for acute hepatic encephalopathy due to noncompliance with his rifaximin as it was too expensive. He had presented with increased leg speech and confusion and feeling that he was off balance. He had been taking lactulose and rifaximin but had stopped taking rifaximin because it was too expensive. He was discharged home in stable condition on 12/27/2019. However he presented in the ED on the evening of the day he was discharged complaining of left leg redness and swelling. He was diagnosed with cellulitis then and he requested to be discharged home. However, blood cultures obtained grew gram-negative rods and patient was instructed to return to the emergency room on 12/27/2019. He denied any fever, chills, cough, chest pain, nausea or vomiting, or diarrhea. He denied any trauma to his LLE, though he said sometimes he scratches his LLE. On admission to the ED, temperature was 98F, and BP was 113/70 and KS was 88, and RR was 16. Chemistry showed total bilirubin of 2.6 with AST of 31 and ALT of 14 and CBC showed WBC of 11.4 and hemoglobin of 12.5. 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) old stroke not visible on MRI- [facility] neurology opinion History of peptic ulcer (Chronic) Osteoarthritis (Chronic) HTN (hypertension) (Chronic) Allergies aspirin Adverse Reaction (Verified 12/27/19 08:35) Upset Stomach Home Medications: Ambulatory Orders Medication Instructions Recorded Lisinopril [Zestril] 40 mg PO DAILY 12/24/15 Omeprazole [Prilosec] 20 mg PO DAILY 12/26/19 Amlodipine [Norvasc] 5 mg PO DAILY 12/27/19 Lactulose [Chronulac] 30 gm PO TID 12/27/19 Nystatin Powder [Mycostatin Powder] 1 applic TOPICAL TID 12/27/19 Surgical History: cholecystectomy, total hip arthroplasty, - - bilateral knee replacement, liver bx Psychiatric History: No pertinent psych hx Lives: Spouse/ Significant Other Smoking Status: Never smoker Alcohol: None Drugs: None - *Family History Maternal History Items: - - Denies any maternal medical history. Paternal History Items: Diabetes, Dementia Review of Systems Constitutional: Reports: Fever. Denies: Chills, Malaise, Weakness, Weight Change, Fatigue Eyes: Denies: Blurred vision HEENT: Denies: Head Aches, Sinus Congestion, Sinus Drainage Cardiovascular: Denies: Chest Pain, Palpitations Respiratory: Denies: Cough, Shortness of Breath, Shortness of breath at rest, Shortness of breath upon exertion, Sputum production Gastrointestinal: Denies: Abdominal Pain, Nausea, Vomiting Genitourinary: Denies: Dysuria Musculoskeletal: Denies: Joint Pain, Joint Tenderness Skin: Reports: - - redness, swelling and pain of LLE Neurological: Denies: Numbness, Tingling, Focal weakness Psychiatric: Denies: Anxiety, Depression, Homicidal Ideations, Suicidal Ideations Hematologic/ Lymphatic: Denies: Easy Bruising, Easy Bleeding VTE Information - Inpt Only VTE Present on Admission: No VTE Pharm Prophylaxis ordered?: Yes Patient Problems: Active and Suspected Problems Bacteremia (Acute) Cellulitis of right lower leg (Acute) - Physical Exam Vitals/I&O's: Vital Signs Temp Pulse Resp BP Pulse Ox 98 F 88 16 113/70 97 12/27/19 11:43 12/27/19 11:43 12/27/19 11:43 12/27/19 11:43 12/27/19 11:43 Oxygen Delivery Method Room Air Weight: 327 lb 0.014 oz Body Mass Index (BMI) 45.6 Finger Stick Blood Glucose 93 Intake and Output for Last 24 Hours 12/25/19 12/26/19 12/27/19 23:59 23:59 23:59 Intake Total 50 / 50 Output Total 250 / 250 Balance -200 / -200 General: Alert, Oriented x3, Cooperative, No apparent distress HEENT: Atraumatic, PERRLA, EOMI, Normocephalic Oral: Moist Mucosa Neck: Supple, No JVD, Negative Carotid Bruits Lungs: Clear to auscultation, Normal air movement, No rhonchi, No wheeze, No rales Cardiovascular: Regular rate, Regular Rhythm, Normal S1, Normal S2, No murmurs Abdomen: Bowel Sounds Present, Soft, Non Tender, Non-Distended, No Hepato-splenomegaly Extremities: No edema, Capillary Refill Less than 3 Seconds Skin: - - redness and mild swelling of LLE, extending from just above ankle to just below knee. mildly tender to palpation Musculoskeletal: No Tenderness to Palpation of Joints or Extremities Lymphatic: No Cervical, Supraclavicular, or Inguinal Adenopathy Neurological: Cranial nerves II-XII grossly intact, Neuro grossly intact, Motor Exam 5/5 strength throughout Psych/Mental Status: Normal Affect, Appropriate, Alert and oriented to time, place, person, mood and affect Laboratory Results 12/27/19 09:04: WBC 11.4 H, RBC 3.83 L, Hgb 12.5 L, Hct 38.0 L, MCV 99.2 H, MCH 32.6 H, MCHC 32.9, RDW Std Deviation 50.0 H, RDW Coeff of Reji 13.6, Plt Count 109 L, MPV 8.8, Immature Gran % (Auto) 0.500, Neut % (Auto) 82.0 H, Lymph % (Auto) 6.9 L, [place] % (Auto) 9.8, Eos % (Auto) 0.4, Baso % (Auto) 0.4, Absolute Neuts (auto) 9.4 H, Absolute Lymphs (auto) 0.79 L, Nucleated RBC % 0 12/27/19 09:04: PT 18.9 H, INR 1.6, APTT 43.1 H 12/27/19 09:04: Sodium 141, Potassium 3.9, Chloride 110 H, Carbon Dioxide 29.0, Anion Gap 2 L, BUN 24 H, Creatinine 1.26, Estim Creat Clear Calc 67.23, Est GFR (MDRD) Af Amer 75, Est GFR (MDRD) Non-Af 62, BUN/Creatinine Ratio 19.0, Glucose 108 H, Calcium 8.0 L, Total Bilirubin 2.60 H, AST 31, ALT 14 L, Alkaline Phosphatase 85, Total Protein 5.9 L, Albumin 2.4 L, Globulin 3.5, Albumin/Globulin Ratio 0.7 L 12/27/19 09:04: Lactic Acid 1.4 Current Medications Amlodipine Besylate (Norvasc) 5 mg PO DAILY [facility] Dextrose (D50w Syringe) 0 gm IV X1 PRN; Protocol PRN Reason: Hypoglycemia Glucagon () 1 mg IM .X1 PRN PRN Reason: Hypoglycemia Piperacillin Sod/Tazobactam (Sod 3.375 gm/ Sodium Chloride) 50 mls @ 12.5 mls/hr IV Q8 MIRZA Lactulose (Chronulac, Cephulac) 30 gm PO TID MIRZA Lisinopril (Zestril) 40 mg PO DAILY [facility] Non-Formulary Medication (Omeprazole) 20 mg PO DAILY [facility] Nutritional Formula (Lactose Free) (Ensure Enlive) 120 ml PO 4X/DAY [facility] Nystatin (Mycostatin Powder) 1 applic TOPICAL TID MIRZA; Protocol Ondansetron HCl (Zofran) 4 mg IV Q8H PRN PRN PRN Reason: NAUSEA/VOMITING Oxycodone HCl (Oxyir) 5 mg PO Q4H PRN PRN PRN Reason: Pain Score 4-5/10 Sodium Chloride () 10 - 40 ml IV UD PRN PRN Reason: SALINE FLUSH Assessment/Plan All Active Problems Hepatic encephalopathy (Acute) Bacteremia (Acute) Cellulitis of right lower leg (Acute) Acute hepatic encephalopathy (Acute) Cellulitis (Resolved) Chest pain (Resolved) Cholecystitis (Resolved) Hepatic encephalopathy (Resolved) Hyperammonemia (Resolved) 59 y/o admitted with a complaint of LLE redness and swelling. 1. LLE cellulitis Admit to [facility]. Blood cultures from 12/26/2019 showed gram-negative rods in 2 out of 2 samples. Patient started on IV Zosyn in the ED. Will continue. Repeat blood cultures pending. keep Left lower extremity elevated. 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 3. GERD: On pantoprazole 4. Hypertension: Controlled. On amlodipine 5 mg daily and lisinopril 40 mg daily. VT prophylaxis: SCDs Status: Full code Patient counseled extensively about different types of CODE STATUS including full code, DNR CCA and DNR CCA. Patient elects to be full code. Total [id number] time 16 minutes. Inpatient E&M: 35397 Init Hosp L2 Procedures: 88991 Advncd Care Plan 30 Min
[2019-12-27] MEDS: Lactulose 20 GM/30 ML UDC 30 GM PO ×2 (14:35→22:29)
[2019-12-27] MEDS: Nystatin Powder 15gm Bottle 1 APPLIC TOPICAL ×2 (14:35→22:29)
--- NOTE | 2019-12-27 14:49 | NURSING ---
heart rate irregular, many pac's noted on tele. ekg ordered
--- NOTE | 2019-12-27 14:50 | EKG12_ITS ---
Test Reason : PAC'S Blood Pressure : / mmHG Vent. Rate : 080 BPM Atrial Rate : 150 BPM P-R Int : 164 ms QRS Dur : 120 ms QT Int : 386 ms P-R-T Axes : 055 015 034 degrees QTc Int : 445 ms Sinus tachycardia with Blocked Premature atrial complexes with Premature supraventricular complexes Otherwise normal ECG When compared with ECG of 19-FEB-2019 13:52, Premature supraventricular complexes are now Present Confirmed by LUCIEN ASHBY, EDISON ([id number]), writer editor SOHAM BERGERON ([id number]) on 01/01/2020 7:47:56 AM Referred By: Yen Nugent Confirmed By:EDISON MCGRAW MD
--- NOTE | 2019-12-27 16:11 | CHAPLAIN ---
Type of Pastoral Visit _x__ Initial Visit ___ Follow-up Visit ___ On-call Visit ___ General Patient Visit ___ Spiritual Assessment ___ Family Conference ___ Bereavement ___ Rapid Response ___ Code Blue ___ Other (describe below) Pastoral Care Referral From _x__ Patient ___ Family ___ Nurse ___ Physician ___ Editing Intern ___ City Carrier ___ Other (describe below) Sacrament/Intervention _x__ Active listening ___ Anointing ___ Moravian ___ Bereavement ___ Communion ___ Nina exploration ___ _x__ Life review _x__ Prayer ___ Reconciliation ___ Sacrament of Sick ___ Supportive presence ___ Wedding ___ Other (describe below) Pastoral Comments
[2019-12-27 16:28] LABS: Magnesium 1.8 mg/dL (1.6-2.6)
[2019-12-27] MEDS: 0.9% Saline Lock 10 ML Syringe IV (22:30)
[2019-12-28] VITALS (11 sets, daily range): BP systolic 108–131; BP diastolic 49–79; PULSE 68–100; RESP 16–22; TEMP 36.8–37.1; O2SAT 94–98
[2019-12-28] MEDS: Nystatin Powder 15gm Bottle 1 APPLIC TOPICAL ×2 (05:59→15:07)
[2019-12-28] MEDS: Lactulose 20 GM/30 ML UDC 30 GM PO ×3 (05:59→22:01)
[2019-12-28] MEDS: Lisinopril 40 MG Tablet PO (09:21)
[2019-12-28] MEDS: amLODIPine 5 MG Tablet PO (09:21)
[2019-12-28] MEDS: Pantoprazole Sodium 20 MG Tablet PO (09:21)
[2019-12-28 09:36] LABS: Absolute Lymphocyte Count 0.73 X10^3/uL (0.83-4.51); Absolute Neutrophil Count 4.6 X10^3/uL (2.0-7.7); Basophil# 0.05 X10^3/uL; Basophil% 0.8 % (0-1); Eosinophil# 0.16 X10^3/uL; Eosinophils% 2.6 % (0-5); Hematocrit 37.7 % (40-54); Hemoglobin 12.5 g/dL (13.0-16.5); Lymphocyte # 0.73 X10^3/ul (4.0); Mean Corp Hgb Conc 33.2 g/dL (32-36); Mean Corpuscular Hgb 33.3 pg (27.0-32.0); Mean Corpuscular Volume 100.5 fL (80-94); Mean Platelet Vol. 9.1 fl (6.2-12.0); Monocyte# 0.54 X10^3/uL; Monocyte% 8.9 % (0-10); NRBC Flagged by Analyzer 0 % (0-5); Neutrophil # 4.59 X10^3/uL (2.7-7.7); Neutrophil % 75.2 % (47-70); POSITIVE COUNT YES; Platelet Count 98 K/mm3 (150-450); RBC Distribution Width CV 13.5 % (11.6-14.6); RBC Distribution Width SD 49.8 fl (35.1-43.9); Red Blood Count 3.75 M/mm3 (4.6-6.2); White Blood Count 6.1 K/mm3 (4.4-11.0)
[2019-12-28 09:37] LABS: Differential Indicated SCAN CRITERIA MET
[2019-12-28 09:53] LABS: Differential Comment SCANNED; Platelet Estimate MOD DEC (ADEQ)
[2019-12-28 10:00] LABS: Anion Gap 3 (5-15); BUN 24 mg/dL (7-18); BUN/Creat Ratio 21.6 RATIO (10-20); Calcium,Total 8.1 mg/dL (8.5-10.1); Chloride 111 mmol/L (98-107); Creatinine, Serum 1.11 mg/dL (0.70-1.30); EST Glomerular Filtration Rate 72 mL/min (>60); Est Glom Filt Rate - Afr Amer 87 mL/min (>60); Estimated Creatinine Clearance 76.32 ml/min; Glucose 125 mg/dL (74-106); Sodium Level 142 mmol/L (136-145)
--- NOTE | 2019-12-28 12:59 | CASEMGMT ---
RN CM Readmission Note Previous Admission: -12.26.2019 Diagnosis:hepatic encephalopathy DC Disposition: Home Current Admission Presentation: Intro role of CM and purpose of RN CM assessment. Pt states his is feeling better and will be able to pick pt up on dc and also get his meds on dc. No further concerns re: dc. Pt will f/u with physicians and is aware to f/u with social security specialist @ [facility] for Rifaxamin coverage. Pt will return home on Lactulose. DC PLAN: Home. Luis Antonio FIGUEROA RN ACM
--- NOTE | 2019-12-28 19:41 | PN_ITS ---
Patient Problems: Active and Suspected Problems Bacteremia (Acute) Cellulitis of right lower leg (Acute) Subjective: Doing well, no issues overnight. States that his redness in his right lower extremity is much improved since admission Vitals/I&O's: Vital Signs Temp Pulse Resp BP Pulse Ox 98.8 F 82 18 109/52 L 98 12/28/19 16:34 12/28/19 18:53 12/28/19 16:34 12/28/19 16:34 12/28/19 16:34 Oxygen Delivery Method Room Air Weight: 327 lb 0.01 oz Body Mass Index (BMI) 45.6 Finger Stick Blood Glucose 93 Intake and Output for Last 24 Hours 12/26/19 12/27/19 12/28/19 23:59 23:59 23:59 Intake Total 700 / 1225 1690 / 1690 Output Total 450 / 675 425 / 425 Balance 250 / 550 1265 / 1265 General: Alert, Oriented x3, Cooperative, No apparent distress HEENT: Atraumatic, PERRLA, EOMI, Normocephalic Oral: Moist Mucosa Neck: Supple, No JVD Lungs: Clear to auscultation, Normal air movement, No rhonchi, No wheeze, No rales Cardiovascular: Regular rate, Regular Rhythm, Normal S1, Normal S2, No murmurs Abdomen: Soft, Non Tender, Non-Distended, No Hepato-splenomegaly Extremities: Capillary Refill Less than 3 Seconds, Edema - 1+ edema bilaterally Skin: - - Bilateral venous stasis changes, redness on the right appears improved from the markings that were placed on admission Neurological: Neuro grossly intact, Sensory exam intact to light touch and pain Psych/Mental Status: Normal Affect, Appropriate Microbiology Past 72 Hours 12/27/19 09:04 Blood Culture (Wb) - Anticubital Right Blood Culture - Preliminary Gram negative samia 12/27/19 09:03 Blood Culture (Wb) - Anticubital Left Blood Culture - Preliminary Gram negative samia Laboratory Results 12/28/19 08:52: WBC 6.1, RBC 3.75 L, Hgb 12.5 L, Hct 37.7 L, MCV 100.5 H, MCH 33.3 H, MCHC 33.2, RDW Std Deviation 49.8 H, RDW Coeff of Reji 13.5, Plt Count 98 L, MPV 9.1, Immature Gran % (Auto) 0.500, Neut % (Auto) 75.2 H, Lymph % (Auto) 12.0 L, [place] % (Auto) 8.9, Eos % (Auto) 2.6, Baso % (Auto) 0.8, Absolute Neuts (auto) 4.6, Absolute Lymphs (auto) 0.73 L, Nucleated RBC % 0, Differential Comment SCANNED, Platelet Estimate MOD 12/28/19 08:52: Sodium 142, Potassium 4.0, Chloride 111 H, Carbon Dioxide 28.0, Anion Gap 3 L, BUN 24 H, Creatinine 1.11, Estim Creat Clear Calc 76.32, Est GFR (MDRD) Af Amer 87, Est GFR (MDRD) Non-Af 72, BUN/Creatinine Ratio 21.6 H, Glucose 125 H, Calcium 8.1 L Current Medications Amlodipine Besylate (Norvasc) 5 mg PO DAILY [facility] Last Admin: 12/28/19 09:21 Dose: 5 mg Documented by: Glucagon () 1 mg IM .X1 PRN PRN Reason: Hypoglycemia Piperacillin Sod/Tazobactam (Sod 3.375 gm/ Sodium Chloride) 50 mls @ 12.5 mls /hr IV Q8 [facility] Last Infusion: 12/28/19 19:06 Dose: Infused Documented by: Dextrose (Dextrose 10%-Water) 250 mls @ 999 mls/hr IV .Q16M PRN; Protocol PRN Reason: HYPOGLYCEMIA Lactulose (Chronulac, Cephulac) 30 gm PO TID [facility] Last Admin: 12/28/19 15:05 Dose: 30 gm Documented by: Lisinopril (Zestril) 40 mg PO DAILY [facility] Last Admin: 12/28/19 09:21 Dose: 40 mg Documented by: Nystatin (Mycostatin Powder) 1 applic TOPICAL TID [facility]; Protocol Last Admin: 12/28/19 15:07 Dose: 1 applicatio Documented by: Ondansetron HCl (Zofran) 4 mg IV Q8H PRN PRN PRN Reason: NAUSEA/VOMITING Oxycodone HCl (Oxyir) 5 mg PO Q4H PRN PRN PRN Reason: Pain Score 4-10/10 Pantoprazole Sodium (Protonix) 20 mg PO DAILY [facility] Last Admin: 12/28/19 09:21 Dose: 20 mg Documented by: Sodium Chloride () 10 - 40 ml IV UD PRN PRN Reason: SALINE FLUSH Last Admin: 12/27/19 22:30 Dose: 10 ml Documented by: STROKE Vital Signs/Narrative: Vital Signs Temp Pulse Resp BP Pulse Ox 12/28/19 18:53 82 12/28/19 16:58 81 12/28/19 16:34 98.8 F 78 18 109/52 L 98 Medical Necessity - Tobacco Use Smoking Status: Never smoker Assessment/Plan All Active Problems Hepatic encephalopathy (Acute) Bacteremia (Acute) Cellulitis of right lower leg (Acute) Acute hepatic encephalopathy (Acute) Cellulitis (Resolved) Chest pain (Resolved) Cholecystitis (Resolved) Hepatic encephalopathy (Resolved) Hyperammonemia (Resolved) 1. 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 GERD -Stable -Continue with PPI 4. Hypertension -Systolic blood pressure is stable -Continue with lisinopril and Norvasc DVT: SCDs Inpatient E&M: 22978 Subs Hosp L2
[2019-12-28] MEDS: 0.9% Saline Lock 10 ML Syringe IV (21:59)
[2019-12-29] VITALS (13 sets, daily range): BP systolic 102–137; BP diastolic 58–72; PULSE 56–133; RESP 16–22; TEMP 36.5–36.8; O2SAT 95–98
[2019-12-29] MEDS: Lactulose 20 GM/30 ML UDC 30 GM PO ×3 (05:46→21:33)
[2019-12-29] MEDS: Nystatin Powder 15gm Bottle 1 APPLIC TOPICAL ×3 (05:48→21:33)
[2019-12-29] MEDS: amLODIPine 5 MG Tablet PO (09:37)
[2019-12-29] MEDS: Lisinopril 40 MG Tablet PO (09:38)
[2019-12-29] MEDS: Pantoprazole Sodium 20 MG Tablet PO (09:38)
--- NOTE | 2019-12-29 11:14 | PCM.PN.HOSP ---
Patient Problems: Active and Suspected Problems Bacteremia (Acute) Cellulitis of right lower leg (Acute) Subjective: Doing well, no issues. States that his redness is significantly improving Vitals/I&O's: Vital Signs Temp Pulse Resp BP Pulse Ox 97.9 F 84 16 115/60 97 12/29/19 07:51 12/29/19 07:59 12/29/19 07:51 12/29/19 07:51 12/29/19 07:51 Oxygen Delivery Method Room Air Weight: 327 lb 0.01 oz Body Mass Index (BMI) 45.6 Finger Stick Blood Glucose 93 Intake and Output for Last 24 Hours 12/27/19 12/28/19 12/29/19 23:59 23:59 23:59 Intake Total 700 / 1225 1780 / 1780 335.25 / 335.25 Output Total 450 / 675 425 / 425 Balance 250 / 550 1355 / 1355 335.25 / 335.25 General: Alert, Oriented x3, Cooperative, No apparent distress HEENT: Atraumatic, PERRLA, EOMI, Normocephalic Oral: Moist Mucosa Neck: Supple, No JVD Lungs: Clear to auscultation, Normal air movement, No rhonchi, No wheeze, No rales Cardiovascular: Regular rate, Regular Rhythm, Normal S1, Normal S2, No murmurs Abdomen: Soft, Non Tender, Non-Distended, No Hepato-splenomegaly Extremities: Capillary Refill Less than 3 Seconds, Edema - 1+ edema bilaterally Skin: - - Bilateral venous stasis changes, redness on the right appears improved from the markings that were placed on admission Neurological: Neuro grossly intact, Sensory exam intact to light touch and pain Psych/Mental Status: Normal Affect, Appropriate Microbiology Past 72 Hours 12/27/19 09:03 Blood Culture (Wb) - Anticubital Left Blood Culture - Preliminary Gram negative samia 12/27/19 09:04 Blood Culture (Wb) - Anticubital Right Blood Culture - Final Gram negative samia Current Medications Amlodipine Besylate (Norvasc) 5 mg PO DAILY [facility] Last Admin: 12/29/19 09:37 Dose: 5 mg Documented by: Glucagon () 1 mg IM .X1 PRN PRN Reason: Hypoglycemia Piperacillin Sod/Tazobactam (Sod 3.375 gm/ Sodium Chloride) 50 mls @ 12.5 mls/hr IV Q8 [facility] Last Infusion: 12/29/19 09:41 Dose: Infused Documented by: Dextrose (Dextrose 10%-Water) 250 mls @ 999 mls/hr IV .Q16M PRN; Protocol PRN Reason: HYPOGLYCEMIA Sodium Chloride () 250 mls @ 15 mls/hr IV .[id number] PRN PRN Reason: Saline Flush Last Infusion: 12/29/19 09:41 Dose: 15 mls/hr Documented by: Sodium Chloride () 250 mls @ 15 mls/hr IV .[id number] PRN PRN Reason: Additional IVPB Infusion Lactulose (Chronulac, Cephulac) 30 gm PO TID [facility] Last Admin: 12/29/19 05:46 Dose: 30 gm Documented by: Lisinopril (Zestril) 40 mg PO DAILY [facility] Last Admin: 12/29/19 09:38 Dose: 40 mg Documented by: Nystatin (Mycostatin Powder) 1 applic TOPICAL TID [facility]; Protocol Last Admin: 12/29/19 05:48 Dose: 1 applicatio Documented by: Ondansetron HCl (Zofran) 4 mg IV Q8H PRN PRN PRN Reason: NAUSEA/VOMITING Pantoprazole Sodium (Protonix) 20 mg PO DAILY [facility] Last Admin: 12/29/19 09:38 Dose: 20 mg Documented by: Sodium Chloride () 10 - 40 ml IV UD PRN PRN Reason: SALINE FLUSH Last Admin: 12/28/19 21:59 Dose: 10 ml Documented by: STROKE Vital Signs/Narrative: Vital Signs Temp Pulse Resp BP Pulse Ox 12/29/19 07:59 84 12/29/19 07:51 97.9 F 65 16 115/60 97 Medical Necessity - Tobacco Use Smoking Status: Never smoker Assessment/Plan All Active Problems Hepatic encephalopathy (Acute) Bacteremia (Acute) Cellulitis of right lower leg (Acute) Acute hepatic encephalopathy (Acute) Cellulitis (Resolved) Chest pain (Resolved) Cholecystitis (Resolved) Hepatic encephalopathy (Resolved) Hyperammonemia (Resolved) 1. 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 GERD -Stable -Continue with PPI 4. Hypertension -Systolic blood pressure is stable -Continue with lisinopril and Norvasc DVT: SCDs Inpatient E&M: 48254 Subs Hosp L2
[2019-12-29] MEDS: 0.9% Saline Lock 10 ML Syringe IV (21:32)
[2019-12-30 00:50] VITALS: BP 117/62; PULSE 70; RESP 16; TEMP 36.5; O2SAT 98
[2019-12-30 03:00] VITALS: PULSE 64
[2019-12-30 05:12] VITALS: BP 117/61; PULSE 61; RESP 17; TEMP 36.3; O2SAT 94
[2019-12-30] MEDS: Nystatin Powder 15gm Bottle 1 APPLIC TOPICAL (05:14)
[2019-12-30] MEDS: Lactulose 20 GM/30 ML UDC 30 GM PO (05:14)
[2019-12-30 07:05] VITALS: PULSE 67
--- NOTE | 2019-12-30 08:53 | DCINST_ITS ---
- Discharge Diagnoses Current Active Problems: Current Active and Chronic Problems Bacteremia (Acute) Cellulitis of right lower leg (Acute) You will use the following diet at home:: Calorie/Carbohydrate Controlled (specify 1200, 1400, etc) Your food should be the consistency of: Regular Your liquids should be the consistency of: Regular/Thin Discharge Activity: Return to Normal Activity Call your doctor if you observe: Fever of 101 or Higher, Shortness of breath, Dizziness, Fainting spells, Swelling in the ankles, Chest pain, Increased palpitations (irregular heartbeat) Allergies/Adverse Reactions: Allergies aspirin Adverse Reaction (Verified 12/27/19 08:35) Upset Stomach Medications to take at Discharge Lisinopril [Zestril] 40 mg PO DAILY 12/24/15 Omeprazole [Prilosec] 20 mg PO DAILY 12/26/19 Amlodipine [Norvasc] 5 mg PO DAILY 12/27/19 Lactulose [Chronulac] 30 gm PO TID 12/27/19 Nystatin Powder [Mycostatin Powder] 1 applic TOPICAL TID 12/27/19 levoFLOXacin tablet [Levaquin tablet] 750 mg PO DAILY #8 tab 12/30/19 The following prescriptions were given: levoFLOXacin tablet [Levaquin tablet] 750 mg PO DAILY #8 tab Transmission Status: Pending to [id number] Primary Care Physician: Pedro Pablo Broussard III, MD [Primary Care Provider] - Please follow up with your Primary Care Physician in: 3-5 days Test Results: Test results from this visit will be discussed in further detail at your follow- up appointment, if applicable.
[2019-12-30 09:20] VITALS: BP 132/71; PULSE 82; RESP 16; TEMP 36.4; O2SAT 97
[2019-12-30] MEDS: Lisinopril 40 MG Tablet PO (09:20)
[2019-12-30] MEDS: Pantoprazole Sodium 20 MG Tablet PO (09:20)
[2019-12-30] MEDS: amLODIPine 5 MG Tablet PO (09:20)
--- NOTE | 2019-12-30 11:10 | DS.PCM_ITS ---
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 Patient was just discharged from [facility] on 12/26/2019 after he was admitted and managed for acute hepatic encephalopathy due to noncompliance with his rifaximin as it was too expensive. He had presented with increased leg speech and confusion and feeling that he was off balance. He had been taking lactulose and rifaximin but had stopped taking rifaximin because it was too expensive. He was discharged home in stable condition on 12/27/2019. However he presented in the ED on the evening of the day he was discharged complaining of left leg redness and swelling. He was diagnosed with cellulitis then and he requested to be discharged home. However, blood cultures obtained grew gram-negative rods and patient was instructed to return to the emergency room on 12/27/2019. He denied any fever, chills, cough, chest pain, nausea or vomiting, or diarrhea. He denied any trauma to his LLE, though he said sometimes he scratches his LLE. On admission to the ED, temperature was 98F, and BP was 113/70 and UT was 88, and RR was 16. Chemistry showed total bilirubin of 2.6 with AST of 31 and ALT of 14 and CBC showed WBC of 11.4 and hemoglobin of 12.5. He has been admitted to manage for cellulitis of the left lower extremity. Hospital Course: 1. Right lower extremity cellulitis with gram-negative samia bacteremia- 59-year-old male who was recently been discharged from the hospital for acute hepatic encephalopathy because of his rifaximin was too expensive, presents with right lower extremity redness. Both legs are edematous which she states is chronic however his right leg appears more right than the left leg. Both have chronic venous stasis changes. He was started on IV Zosyn and repeat blood cultures were obtained. All blood cultures are growing Morganella that is sensitive to Levaquin. With the institution of Zosyn his white count resolved and his redness improved significantly. We did start wrapping his lower extremities however he has to go home today and since he had no fever and he had sensitivities he was discharged today on p.o. Levaquin to complete a 10-day course of antibiotics. I did discuss with him the risk minutes of discharge and that if his redness returns or he develops a fever he is to come back to the hospital, he did express understanding. 2. His other medical diagnoses were evaluated and his home medications were continued where appropriate - Physical Exam Vitals/I&O's: Vital Signs Temp Pulse Resp BP Pulse Ox 97.5 F L 82 16 132/71 H 97 12/30/19 09:20 12/30/19 09:20 12/30/19 09:20 12/30/19 09:20 12/30/19 09:20 Oxygen Delivery Method Room Air Weight: 327 lb 0.01 oz Body Mass Index (BMI) 45.6 Finger Stick Blood Glucose 93 Intake and Output for Last 24 Hours 12/28/19 12/29/19 12/30/19 23:59 23:59 23:59 Intake Total 1780 / 1780 1467.88 / 1467.88 269.37 / 269.37 Output Total 425 / 425 Balance 1355 / 1355 1467.88 / 1467.88 269.37 / 269.37 General: Alert, Oriented x3, Cooperative, No apparent distress HEENT: Atraumatic, PERRLA, EOMI, Normocephalic Oral: Moist Mucosa Neck: Supple, No JVD Lungs: Clear to auscultation, Normal air movement, No rhonchi, No wheeze, No rales Cardiovascular: Regular rate, Regular Rhythm, Normal S1, Normal S2, No murmurs Abdomen: Soft, Non Tender, Non-Distended, No Hepato-splenomegaly Extremities: Capillary Refill Less than 3 Seconds, Edema - 1+ edema bilaterally Skin: - - Bilateral venous stasis changes, redness on the right appears improved from the markings that were placed on admission Neurological: Neuro grossly intact, Sensory exam intact to light touch and pain Psych/Mental Status: Normal Affect, Appropriate Microbiology Past 72 Hours 12/27/19 09:03 Blood Culture (Wb) - Anticubital Left Blood Culture - Prelim inary Gram negative samia 12/27/19 09:04 Blood Culture (Wb) - Anticubital Right Blood Culture - Final Gram negative samia Discharge Activity: Return to Normal Activity Call your doctor if you observe: Fever of 101 or Higher, Shortness of breath, Dizziness, Fainting spells, Swelling in the ankles, Chest pain, Increased palpitations (irregular heartbeat) Home Medications: Medications to take at Discharge Lisinopril [Zestril] 40 mg PO DAILY 12/24/15 Omeprazole [Prilosec] 20 mg PO DAILY 12/26/19 Amlodipine [Norvasc] 5 mg PO DAILY 12/27/19 Lactulose [Chronulac] 30 gm PO TID 12/27/19 Nystatin Powder [Mycostatin Powder] 1 applic TOPICAL TID 12/27/19 levoFLOXacin tablet [Levaquin tablet] 750 mg PO DAILY #8 tab 12/30/19 Following Prescrptions Were Given to Patient: levoFLOXacin tablet [Levaquin tablet] 750 mg PO DAILY #8 tab Transmission Status: Received by [id number] Primary Care Physician: Pedro Pablo Broussard III, MD [Primary Care Provider] - Please follow up with your Primary Care Physician in: 3-5 days Disposition: Home Minutes spent on discharge:: 35 Patient Condition:: Stable Medical Necessity - Tobacco Use Smoking Status: Never smoker Meaningful Use Info Meaningful Use Diagnoses (Choose all that apply): None applicable Inpatient E&M: 49754 Disch Hosp
== END 2019-12-30 10:04 | disposition home or self-care (01) | DRG 603 ==
LOC: ED 09:53 → MS2 10:39 → PCU 12-28 16:16
PROVIDERS: Admitting Provider Student in an Organized Health Care Education/Training Program; Emergency Provider Emergency Medicine; PCP Family Medicine; Referring Provider Student in an Organized Health Care Education/Training Program; Visit Provider Family Medicine
DX: L03.116 Cellulitis of left lower limb (principal); R78.81 Bacteremia; Z68.42 Body mass index [BMI] 45.0-49.9, adult; L03.115 Cellulitis of right lower limb; K75.81 Nonalcoholic steatohepatitis (NASH); K74.69 Other cirrhosis of liver; I10 Essential (primary) hypertension; I69.322 Dysarthria following cerebral infarction; M19.90 Unspecified osteoarthritis, unspecified site; G47.33 Obstructive sleep apnea (adult) (pediatric); K21.9 Gastro-esophageal reflux disease without esophagitis; E66.01 Morbid (severe) obesity due to excess calories; Z79.899 Other long term (current) drug therapy; Z96.653 Presence of artificial knee joint, bilateral; Z96.649 Presence of unspecified artificial hip joint; Z87.11 Personal history of peptic ulcer disease; Z87.01 Personal history of pneumonia (recurrent)
CPT/HCPCS: 36415; 71046; 80048; 80053; 81001; 83605; 83735; 85025; 85610; 85730; 87040; 87077; 87086; 87186; 87804; 93005; 93971; 96365; 96366; 97110; 97116; 97162; 97166; 97530; 97535; 97802; 99285; J7030; J7040; J7050; A4216

== ENCOUNTER 2020-03-19 19:09 | Inpatient (IN) | payer MEDICARE, SELFPAY ==
[2019-12-27 11:36] VITALS: BMI 45.6
[2020-03-19 19:10] VITALS: BP 184/91; PULSE 84; RESP 20; TEMP 37.3; O2SAT 95; BMI 44.9
--- NOTE | 2020-03-19 19:53 | EKG12_ITS ---
Test Reason : DYSRHYTHMIA Blood Pressure : / mmHG Vent. Rate : 080 BPM Atrial Rate : 080 BPM P-R Int : 162 ms QRS Dur : 116 ms QT Int : 382 ms P-R-T Axes : 053 013 048 degrees QTc Int : 440 ms Normal sinus rhythm Normal ECG Confirmed by MAYDA ASHBY, MARIAMA ([id number]), image editor CECI CARTAGENA ([id number]) on 03/21/2020 9:14:20 AM Referred By: Aundrea Zhou Confirmed By:MARIAMA OHARA MD
--- NOTE | 2020-03-19 19:53 | CT_ITS ---
STUDY: CT BRAIN WITHOUT CONTRAST REASON FOR EXAM: Male, 60 years old. 3 RECENT FALLS,BALANCE ISSUES X SEVERAL WEEKS -- HX:TIA,HTN,DIABETES,SEIZURES,BOOTHE RADIATION DOSAGE (If Supplied By Facility): CTDIvol = ( 44.99 ) mGy, DLP = ( 1592.22 ) mGycm TECHNIQUE: Transaxial CT imaging of the brain was performed without administration of intravenous contrast material. Individualized dose optimization techniques were used for this CT. COMPARISON: December 22, 2019 FINDINGS: Normal soft tissue structures. Normal calvarium. Mild calcification of cavernous carotids Mild atrophy and periventricular white matter ischemic changes.. Normal basal ganglia and thalami. Normal brainstem. Normal cerebellum. There is no intracranial hemorrhage. There are no findings of an acute ischemic infarction. Normal visualized paranasal sinuses. No significant change since prior exam CT/Brain/Head without Contrast IMPRESSION: Mild atrophy and periventricular white matter ischemic changes. No evidence for acute intracranial bleed. If concern for acute infarct MRI recommended Electronically Signed: Gonzalez Arnold MD at 21:10 EDT , Service support ,
--- NOTE | 2020-03-19 19:54 | RAD_ITS ---
STUDY: X-RAY - RIGHT KNEE REASON FOR EXAM: Male, 60 years old. FALL, RIGHT KNEE PAIN TECHNIQUE: 4 view(s) of the knee. COMPARISON: None. FINDINGS: Stable appearance to knee prosthesis. No evidence for acute fracture or dislocation. No definitive evidence for loosening or infection.. RAD/Knee 4 or More Views IMPRESSION: Stable appearance to right knee prosthesis. No evidence for acute fracture Electronically Signed: Gonzalez Arnold MD at 21:29 EDT , Service support ,
--- NOTE | 2020-03-19 19:54 | RAD_ITS ---
STUDY: X-RAY - PELVIS AND LEFT HIP REASON FOR EXAM: Male, 60 years old. FALL, LEFT HIP PAIN TECHNIQUE: 3 views of the pelvis and hip. COMPARISON: None. FINDINGS: There is a non-specific bowel gas pattern. Normal visualized soft tissue structures. Normal bilateral iliac wings, sacroiliac joints and visualized sacrum. Normal bilateral superior and inferior pubic rami. Normal pubic symphysis. Normal bilateral ischial tuberosities. Normal visualized femoral head. Mild acetabular spurring.. Normal hip joint. RAD/HIP, UNI W/ Pelvis 2-3 Views IMPRESSION: Mild degenerative changes of the left hip. No acute fracture of the left hip or pelvis. Electronically Signed: Gonzalez Arnold MD at 21:33 EDT , Service support ,
--- NOTE | 2020-03-19 19:56 | ED.DCSUM_ITS ---
- ER Visit Summary Date of Service: 03/19/20 Chief Complaint: Dizziness, frequent falling History of Present Illness: The patient is a 60 M presenting with dizziness, frequent falling. Patient states he fell on Tuesday and 2 times today. He did not hit his head or lose consciousness. He states his legs gave out after feeling dizzy. Denies syncope. Denies chest pain or shortness of breath. He complains of bilateral lower extremity swelling. He has had 2 bowel movements today and states has been taking his lactulose as directed. Denies fever or cough. Denies other complaints. Physical Examination: Vitals are stable. Patient is afebrile. Alert no acute distress. HEENT exam is unremarkable. Neck is supple. Lungs are clear and equal bilaterally. Heart is regular rate and rhythm. Abdomen is soft nontender nondistended. Extremities abrasion right knee with active full range of motion, symmetric edema Skin is warm and dry. No focal neurologic deficit. Remainder of exam is unremarkable. Emergency Department Course and Treatment: EKG is normal sinus rhythm rate of 80, unchanged from previous. CBC shows hemoglobin 12.9, platelet 108. Chemistries show glucose 140. Troponin 0.096. Ammonia 139. Urinalysis unremarkable. CT head shows mild atrophy and periventricular white matter ischemic changes. No evidence for acute intracranial bleed. If concern for acute infarct MRI recommended. Chest x-ray shows chronic changes. Right knee and left hip x-ray show no fracture. Patient was given lactulose. Discussed with the hospitalist for admission. Disposition: Admission Impression: Hyperammonia, dizziness, frequent falls This note was generated with [employer] dictation software. It may contain incorrect words, spelling, and punctuation that were not noted in review of the chart prior to signing ED Disposition - Plan for ED Patient:
[2020-03-19 20:26] LABS: Bacteria 0 SEEN /hpf (None Seen); Squamous Epithelial Cells - UA 0 SEEN /hpf (0-5)
[2020-03-19 20:28] LABS: Absolute Lymphocyte Count 1.24 X10^3/uL (0.83-4.51); Absolute Neutrophil Count 3.5 X10^3/uL (2.0-7.7); Basophil# 0.04 X10^3/uL; Basophil% 0.7 % (0-1); Eosinophil# 0.09 X10^3/uL; Eosinophils% 1.6 % (0-5); Hemoglobin 12.9 g/dL (13.0-16.5); Lymphocyte # 1.24 X10^3/ul (4.0); Lymphocyte % 21.9 % (19-41); Mean Corp Hgb Conc 33.9 g/dL (32-36); Mean Corpuscular Hgb 33.8 pg (27.0-32.0); Mean Corpuscular Volume 99.5 fL (80-94); Monocyte% 14.2 % (0-10); NRBC Flagged by Analyzer 0 % (0-5); Neutrophil # 3.47 X10^3/uL (2.7-7.7); Neutrophil % 61.4 % (47-70); Platelet Count 108 K/mm3 (150-450); RBC Distribution Width SD 46.7 fl (35.1-43.9); Red Blood Count 3.82 M/mm3 (4.6-6.2); White Blood Count 5.7 K/mm3 (4.4-11.0)
[2020-03-19 20:37] LABS: Anion Gap 2 (5-15); BUN 16 mg/dL (7-18); Calcium,Total 8.4 mg/dL (8.5-10.1); Chloride 112 mmol/L (98-107); Creatinine, Serum 1.07 mg/dL (0.70-1.30); EST Glomerular Filtration Rate 75 mL/min (>60); Est Glom Filt Rate - Afr Amer 91 mL/min (>60); Estimated Creatinine Clearance 78.19 ml/min; Glucose 140 mg/dL (74-106); Sodium Level 144 mmol/L (136-145)
[2020-03-19 20:38] LABS: Color, Urine Yellow (Yellow); Glucose, Dipstick Normal (Normal); Ketone-Dipstick 5 mg/dl (Negative); Leukocyte Esterase-Dipstick 25 /ul (Negative); Nitrite-Dipstick Negative (Negative); Occult Blood-Urine 150 /ul (Negative); Protein-Dipstick 30 mg/dl (Negative); Urine Bilirubin Dipstick Negative (Negative); Urine Clarity Clear (Clear); Urine Urobilinogen 4 mg/dl (Normal)
[2020-03-19 20:46] LABS: Mucous, Urine 2+ /hpf (<or=2+); Red Blood Cells-Urine 0-5 SEEN /hpf (0-5); White Blood Cells 0-5 SEEN /hpf (0-5)
--- NOTE | 2020-03-19 21:00 | RAD_ITS ---
STUDY: X-RAY CHEST REASON FOR EXAM: Male, 60 years old. DIZZINESS, BALANCE ISSUES, FALL TECHNIQUE: AP portable COMPARISON: December 26, 2019 FINDINGS: There is interstitial thickening in the lower lobes. There is no focal infiltration.. There is no demonstrated pleural abnormality. Borderline cardiomegaly. Normal mediastinum and fred. Normal visualized pulmonary arteries. Normal visualized aortic arch and descending thoracic aorta. Dorsal spine demonstrates degenerative changes. Normal visualized ribs, clavicles, and shoulders. There is no demonstrated abnormality of the visualized soft tissue structures of the upper abdomen. No significant change since prior exam RAD/Chest 1 View (Portable) IMPRESSION: Chronic interstitial changes in the lower lobes. No acute disease Electronically Signed: Gonzalez Arnold MD at 21:30 EDT , Service support ,
--- NOTE | 2020-03-19 21:28 | HP.PCM_ITS ---
Problem List (1) Decompensated hepatic cirrhosis Status: Acute (2) Increased ammonia level Status: Acute (3) HLD (hyperlipidemia) Status: Chronic Qualifiers: Hyperlipidemia type: unspecified Qualified Code(s): E78.5 - Hyperlipidemia, unspecified (4) BOOTHE (nonalcoholic steatohepatitis) Status: Chronic (5) Stasis dermatitis Status: Chronic Qualifiers: Laterality: bilateral Qualified Code(s): I87.2 - Venous insufficiency (chronic) (peripheral) (6) Morbid obesity with body mass index of 45.0-49.9 in adult Status: Chronic (7) GERD (gastroesophageal reflux disease) Status: Chronic Qualifiers: Esophagitis presence: esophagitis presence not specified Qualified Code(s): K21.9 - Gastro-esophageal reflux disease without esophagitis (8) SANTHOSH (obstructive sleep apnea) Status: Chronic (9) 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 The patient is a 60 y/o M w/ PMHx: Hx CVA w/ dysarthria chronically, Seizure hx associated with BOOTHE/electrolyte imbalance per discussion, HTN, HLD, BOOTHE with Liver Cirrhosis following w/ JUAN FRANCISCO Gardner who presents to the [facility] ED on 03/19/20 with history of frequent ongoing falls over the last 48 hours with fatigue, dizziness with activity, decreased bowel movements despite reported appropriate intake of his lactulose with worsening dizziness starting at ~ 4 pm on day of ED presentation in addition to history of several weeks of intermittent dyspnea, worse with exertion with associated chest pressure rated 1-3 in severity 8 of 10 when occurring, appears to potentially improve with rest, currently no discomfort complaints at this time upon presentation or more notably over the last 48 hours. is present and does report the patient to have increased bilateral lower extremity swelling. Discussed importance of patient's weight monitoring daily which he does not perform. Patient also is noncompliant with a low-sodium diet. Work-up in the ED included T 99.1, heart rate 84, BP 184/91, respiratory rate 20, 95% on room air, CBC with WBC 5.7, hemoglobin 12.9, platelet 108 with no market left shift, CMP with chloride 112, glucose 140, ammonia 139, troponin 0 0.096, pending hepatic profile, urinalysis with elevated specific gravity 1.020, protein 30, ketones 5, occult blood 150, negative nitrite, leukocyte esterase 25, no urine bacteria and no urine WBCs, CT brain with mild atrophy and periventricular white matter ischemic changes with no evidence of acute intracranial bleed, laying film of the right knee with st able appearing right knee prosthesis with no evidence of acute fracture plain film of the hip and pelvis with no acute findings, chest x-ray with chronic changes, EKG sinus rhythm without acute evidence of ischemia. 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) old stroke not visible on MRI- [facility] neurology opinion History of peptic ulcer (Chronic) Osteoarthritis (Chronic) HTN (hypertension) (Chronic) Allergies aspirin Adverse Reaction (Verified 03/19/20 19:13) Upset Stomach Home Medications: Ambulatory Orders Medication Instructions Recorded Lisinopril [Zestril] 40 mg PO DAILY 12/24/15 Omeprazole [Prilosec] 20 mg PO DAILY 12/26/19 Amlodipine [Norvasc] 5 mg PO DAILY 12/27/19 Lactulose [Chronulac] 30 gm PO BID 12/27/19 Nystatin Powder [Mycostatin Powder] 1 applic TOPICAL TID 12/27/19 Surgical History: cholecystectomy, total knee arthroplasty, - - Liver biopsy, bilateral total knee replacement, tonsillectomy, cholecystectomy. Psychiatric History: No pertinent psych hx Lives: Spouse/ Significant Other Smoking Status: Never smoker Tobacco Use: Non-smoker Alcohol: None Drugs: None - *Family History Maternal History Items: Cancer Paternal History Items: Diabetes, Dementia Review of Systems Constitutional: Reports: Malaise, Weakness, Fatigue. Denies: Anorexia, Chills, Fever, Weight Change HEENT: Denies: Head Aches, Sinus Congestion, Sinus Drainage Cardiovascular: Reports: Chest Pressure, Light Headedness. Denies: Chest Pain, Chest Tightness, Orthopnea, Palpitations, Syncope Respiratory: Denies: Cough, Shortness of breath at rest, Sputum production Gastrointestinal: Denies: Abdominal Pain, Nausea, Vomiting Genitourinary: Denies: Dysuria Musculoskeletal: Reports: Back Pain, Joint Pain, - - Frequent falls.. Denies: Joint Tenderness Skin: Reports: Skin Changes. Denies: Rash, Wounds Neurological: Reports: Balance problems, Change in Speech, Slurred speech. Denies: Focal weakness, Numbness, Tingling Psychiatric: Denies: Anxiety, Depression, Homicidal Ideations, Suicidal Ideations Hematologic/ Lymphatic: Reports: Anemia, Easy Bruising, Easy Bleeding VTE Information - Inpt Only VTE Present on Admission: No VTE Mechan Device Prophylaxis: SCD's VTE Pharm Prophylaxis ordered?: Yes Patient Problems: Active and Suspected Problems Decompensated hepatic cirrhosis (Acute) Increased ammonia level (Acute) Subjective: Patient seated upright in ED bed, fatigued appearance otherwise no acute distress, chronic dysarthria present and unchanged. Objective: Physical Examination: General: awake but fatigued appearing, alert, oriented x 3 despite elevated ammonia level, remains cooperative, seated upright in the ED bed in no apparent distress, denies any current chest discomfort. Skin: normal color, turgor, no icterus, cyanosis except notable bilateral lower extremity chronic venous stasis skin changes, abdominal fold intertrigo. HEENT: AT/NC, EOMI, PERRLA, dry MM, no carotid bruits or JVD noted; however, thickened neck makes examination very difficult. Lungs: Diminished breath sounds bilaterally, greater bilateral bases, appropriate effort, no rales, ronchi or wheezing. Heart: Regular rate and rhythm; no gallop, rub audible. Abdomen: soft, morbidly obese, NTTP, unable to discern market distention and denied per patient, distant normal BS, unable to discern HSM given habitus. Extremities: no cyanosis, clubbing, bilateral lower extremity pedal to mid amaya edema, see skin. Neurological: patient awake, alert, oriented as noted; cognitive function near baseline intact per patient and report; pupils equally reactive to light and accomodation; cranial nerves II-XII grossly normal, moving all 4 extremities, no focal deficits, strength moderately to severely global decrease secondary to acute complaints. Psychiatric: affect appears fatigued otherwise normal, no acute evidence of depressive or anxiety feelings. - Physical Exam Vitals/I&O's: Vital Signs Temp Pulse Resp BP Pulse Ox 99.1 F 84 20 H 184/91 H 95 03/19/20 19:10 03/19/20 19:10 03/19/20 19:10 03/19/20 19:10 03/19/20 19:10 Oxygen Delivery Method Room Air Weight: 321 lb 10.471 oz Body Mass Index (BMI) 44.9 Finger Stick Blood Glucose 93 Laboratory Results 03/19/20 20:10: WBC 5.7, RBC 3.82 L, Hgb 12.9 L, Hct 38.0 L, MCV 99.5 H, MCH 33.8 H, MCHC 33.9, RDW Std Deviation 46.7 H, RDW Coeff of Reji 13.0, Plt Count 108 L, MPV 9.0, Immature Gran % (Auto) 0.200, Neut % (Auto) 61.4, Lymph % (Auto) 21.9, [place]mer % (Auto) 14.2 H, Eos % (Auto) 1.6, Baso % (Auto) 0.7, Absolute Neuts (auto) 3.5, Absolute Lymphs (auto) 1.24, Nucleated RBC % 0 03/19/20 20:10: Sodium 144, Potassium 4.0, Chloride 112 H, Carbon Dioxide 30.0, Anion Gap 2 L, BUN 16, Creatinine 1.07, Estim Creat Clear Calc 78.19, Est GFR (MDRD) Af Amer 91, Est GFR (MDRD) Non-Af 75, BUN/Creatinine Ratio 15.0, Glucose 140 H, Calcium 8.4 L, Troponin I 0.096 H 03/19/20 20:10: Total Bilirubin Pending, Direct Bilirubin Pending, AST Pending, ALT Pending, Alkaline Phosphatase Pending, Total Protein Pending, Albumin Pending 03/19/20 20:25: Urine Color Yellow, Urine Clarity Clear, Urine pH 6.0, Ur Speci fic [place] 1.020, Urine Protein 30 H, Urine Glucose (UA) Normal, Urine Ketones 5 H, Urine Occult Blood 150 H, Urine Nitrite Negative, Urine Bilirubin Negative, Urine Urobilinogen 4 H, Ur Leukocyte Esterase 25 H, Urine RBC 0-5 SEEN, Urine WBC 0-5 SEEN, Ur Squamous Epith Cells 0 SEEN, Urine Bacteria 0 SEEN, Urine Mucus 2+ 03/19/20 20:25: Ammonia 139.0 H Assessment/Plan All Active Problems Hepatic encephalopathy (Acute) Bacteremia (Acute) Cellulitis of right lower leg (Acute) Decompensated hepatic cirrhosis (Acute) Increased ammonia level (Acute) Acute hepatic encephalopathy (Acute) Cellulitis (Resolved) Chest pain (Resolved) Cholecystitis (Resolved) Hepatic encephalopathy (Resolved) Hyperammonemia (Resolved) The patient is a 60 y/o M w/ PMHx: Hx CVA w/ dysarthria chronically, Seizure hx associated with BOOTHE/electrolyte imbalance per discussion, HTN, HLD, BOOTHE with Liver Cirrhosis following w/ JUAN FRANCISCO Gardner who presents to the [facility] ED on 03/19/20 with history of frequent ongoing falls over the last 48 hours with fatigue, dizziness with activity, decreased bowel movements despite reported appropriate intake of his lactulose with worsening dizziness starting at ~ 4 pm on day of ED presentation in addition to history of several weeks of intermittent dyspnea, worse with exertion with associated chest pressure rated 1-3 in severity 8 of 10 when occurring, appears to potentially improve with rest. 1. BOOTHE with Decompensated Cirrhosis with Hyperammonia: Will admit to PCU, maintain on telemetry, maintain on low Na diet, initiate aggressive lactulose regimen, dose lasix 40 mg IV BID x 2 given complaint of worsened BL LE edema with snug DON wraps w/ AM initiate spironolactone, repeat CBC, CMP, ammonia level in AM, maintain on fall precautions, obtain PT/OT assessments. 2. Chest pain with Indeterminate cardiac enzyme: EKG in ED with sinus rhythm with no acute evidence of ischemia, CXR w/ no acute cardiopulmonary findings with chronic changes, initial trop 0.096. Will place on a monitored bed to assure no acute myocardial infarction with serial cardiac enzymes and EKGs. If improvement of #1 consider pursuing stress testing, possibly outpatient pending enzyme trends. NG, morphine. Mag pending. FLP in AM. 3. Hyperglycemia: Admission glucose 140, will obtain hemoglobin A1c be cautious. 4. Macrocytic anemia, chronic: Admission hemoglobin 12.9, MCV mildly elevated 99.5, vitamin B12 and folic acid requested as well as iron panel. 5. Hypertension: Continue home regimen including Norvasc, lisinopril, IV Lasix temporarily as noted with a.m. addition of spironolactone, PRN hydralazine. 6. Hyperlipidemia: Not on statin therapy, FLP in a.m. 7. Morbid Obesity: Weight loss and lifestyle changes encouraged, nutrition consulted especially given #1. 8. History CVA: History of CVA with chronic dysarthria, no specific focal deficits otherwise, noted aspirin allergy with upset stomach only, maintain on asa, not on statin, HTN regimen, pending HgbA1c as noted 9. Chronic venous stasis: As noted given #1 plan to snug Don wraps, bilateral lower extremity elevation and IV Lasix dosing x2. 10. DVT prophylaxis: SCDs, pending coags given acute presentation with lovenox if appropriate. 11. CODE status: Patient does not have a healthcare power of furniture technician nor living will set up. Discussed CODE status at length including difference between FULL code, DNR-CCA and DNR-CC status. Following discussions about the differences in these status, requested Full code status and noted intention to further cut these items amongst themselves. Noted that if there are any q uestions or if they wanted assistance case management/social work could assist. Advanced Care Planning Face to Face Time: 16 minutes. Inpatient E&M: 92733 Init Hosp L3 Procedures: 74543 Advncd Care Plan 30 Min
[2020-03-19 21:31] LABS: AST(SGOT) 36 U/L (15-37); Alanine Aminotransfer ALT/SGPT 13 U/L (16-61); Albumin, Serum 2.5 g/dL (3.2-5.0); Alkaline Phosphatase 98 U/L (45-117); Bilirubin, Direct 0.36 mg/dL (0.00-0.30); Globulin 3.6 g/dL (2.2-4.2); Protein, Total 6.1 g/dL (6.4-8.2)
[2020-03-19 21:38] VITALS: PULSE 83; RESP 24; O2SAT 95
[2020-03-19 21:47] VITALS: BP 130/76; PULSE 74; RESP 25; TEMP 36.7; O2SAT 94
[2020-03-19] MEDS: Lactulose 20 GM/30 ML UDC PO (22:31)
[2020-03-19 22:48] VITALS: BP 150/79; PULSE 75; RESP 18; TEMP 36.6; O2SAT 97
[2020-03-19 22:49] VITALS: PULSE 78
--- NOTE | 2020-03-19 22:51 | ECHOD_ITS ---
Reason For Study: ARRHYTHMIA Procedure This was a 2D Doppler, Color Flow transthoracic echocardiogram. Exam performed portable in patient room. Left Ventricle Normal size and thickness. The estimated ejection fraction is 65 %. Stage 1 diastolic dysfunction. No regional wall motion abnormalities noted. Right Ventricle Moderately dilated right ventricle. Normal systolic function. Atria Normal left atrium. Normal right atrium. Normal atrial septum. Mitral Valve The mitral valve is structurally normal. No prolapse or stenosis seen. Tricuspid Valve Normal tricuspid valve. Trivial tricuspid valve insufficiency. Right ventricular systolic pressure estimated to be 35 mmHg. Aortic Valve Trisinus/trileaflet aortic valve. Mild diffuse aortic valve thickening. There is no aortic stenosis. Pulmonic Valve Normal pulmonic valve. Great Vessels Normal aortic root. Normal arch. Normal inferior vena cava. Inferior vena cava collapse with sniff. Pericardium/Pleural No pericardial effusion. MMode/2D Measurements & Calculations LVIDd: 5.6 cm IVSd: 0.81 cm Ao root diam: 3.8 cm LVIDs: 4.0 cm LVPWd: 0.83 cm RVDd: 5.6 cm FS: 29.7 % LAV(MOD-bp): 53.5 ml LA A4 area: 18.7 cm2 LA dimension(2D): 3.8 cm LAV(MOD-bp) Indexed: 20.9 ml/m2 LAV(MOD-sp2): 47.1 ml LAV(MOD-sp4): 51.5 ml RA A4 area: 7.8 cm2 Doppler Measurements & Calculations Lat Peak E' Kevin: 12.5 cm/sec Med Peak E' Kevin: 6.3 cm/sec Ao V2 max: 190.0 cm/sec Ao max P.5 mmHg Ao V2 mean: 123.0 cm/sec Ao mean P.1 mmHg Ao V2 VTI: 33.7 cm LV V1 max: 153.3 cm/sec PA V2 max: 100.0 cm/sec TR max kevin: 270.4 cm/sec LV V1 max P.4 mmHg TR max P.3 mmHg LV V1 mean P.3 mmHg LV V1 mean: 107.9 cm/sec LV V1 VTI: 28.2 cm Interpretation Summary The estimated ejection fraction is 65 %. Stage 1 diastolic dysfunction. Moderately dilated right ventricle. Trivial tricuspid valve insufficiency. Right ventricular systolic pressure estimated to be 35 mmHg. There is no aortic stenosis. Compared to echo report dated 08/30/2018, LV function has remained the same, moderate RV enlargement has remained the same. RVSP has increased from 24 to 35 mmHg. Ordering Physician: Aundrea Zhou Referring Physician: SÁNCHEZ STEPHENS III Performed By: Jessica Murphy, KEYUR, RVT
[2020-03-19 22:55] VITALS: BMI 44.1
[2020-03-19 23:04] LABS: Magnesium 2.1 mg/dL (1.6-2.6)
[2020-03-19 23:06] VITALS: BMI 44.2
[2020-03-19 23:26] LABS: Ferritin 96 ng/mL (26-388); Iron 47 ug/dL (65-175); Iron Binding Capacity,Total 174 ug/dL (250-450)
[2020-03-19 23:26] LABS: International Normalized Ratio 1.4; Partial Thromboplast Time 37.2 Seconds (24.1-36.2); Prothrombin Time (Protime)PT. 16.3 SECONDS (11.7-14.9)
[2020-03-19] MEDS: Nystatin Powder 15gm Bottle 1 APPLIC TOPICAL (23:34)
[2020-03-19] MEDS: Spironolactone 25 MG Tablet PO (23:35)
[2020-03-19] MEDS: Furosemide 40 MG/4 ML Vial IV (23:35)
[2020-03-20] VITALS (10 sets, daily range): BP systolic 115–139; BP diastolic 56–108; PULSE 60–90; RESP 16–18; TEMP 36.5–36.8; O2SAT 94–97
[2020-03-20 00:02] LABS: Vitamin B12 615 pg/mL (211-911)
[2020-03-20] MEDS: Enoxaparin 150 MG/ML Syringe SC ×3 (01:50→16:52)
[2020-03-20 01:59] LABS: Absolute Lymphocyte Count 1.38 X10^3/uL (0.83-4.51); Absolute Neutrophil Count 3.5 X10^3/uL (2.0-7.7); Basophil# 0.04 X10^3/uL; Basophil% 0.7 % (0-1); Eosinophil# 0.11 X10^3/uL; Eosinophils% 1.8 % (0-5); Hematocrit 40.2 % (40-54); Hemoglobin 13.7 g/dL (13.0-16.5); Lymphocyte # 1.38 X10^3/ul (4.0); Lymphocyte % 22.8 % (19-41); Mean Corp Hgb Conc 34.1 g/dL (32-36); Mean Corpuscular Hgb 33.3 pg (27.0-32.0); Mean Corpuscular Volume 97.8 fL (80-94); Mean Platelet Vol. 8.9 fl (6.2-12.0); Monocyte% 16.5 % (0-10); NRBC Flagged by Analyzer 0 % (0-5); Neutrophil # 3.52 X10^3/uL (2.7-7.7); Platelet Count 105 K/mm3 (150-450); RBC Distribution Width CV 13.1 % (11.6-14.6); RBC Distribution Width SD 46.6 fl (35.1-43.9); Red Blood Count 4.11 M/mm3 (4.6-6.2); White Blood Count 6.1 K/mm3 (4.4-11.0)
[2020-03-20 02:27] LABS: ALB/GLOB Ratio 0.7 RATIO (0.9-2.4); AST(SGOT) 36 U/L (15-37); Alanine Aminotransfer ALT/SGPT 12 U/L (16-61); Albumin, Serum 2.6 g/dL (3.2-5.0); Alkaline Phosphatase 96 U/L (45-117); Anion Gap 7 (5-15); BUN 16 mg/dL (7-18); Calcium,Total 8.6 mg/dL (8.5-10.1); Chloride 112 mmol/L (98-107); EST Glomerular Filtration Rate 81 mL/min (>60); Est Glom Filt Rate - Afr Amer 98 mL/min (>60); Estimated Creatinine Clearance 83.67 ml/min; Globulin 3.8 g/dL (2.2-4.2); Glucose 108 mg/dL (74-106); Potassium 3.9 mmol/L (3.5-5.1); Protein, Total 6.4 g/dL (6.4-8.2); Sodium Level 147 mmol/L (136-145)
[2020-03-20 02:35] LABS: Hemoglobin A1c 4.8 % (3.8-5.6)
[2020-03-20] MEDS: Lactulose 20 GM/30 ML UDC PO ×4 (05:37→23:30)
[2020-03-20] MEDS: Nystatin Powder 15gm Bottle 1 APPLIC TOPICAL ×3 (05:38→21:39)
--- NOTE | 2020-03-20 05:55 | EKG12_ITS ---
Test Reason : AM EKG Blood Pressure : / mmHG Vent. Rate : 064 BPM Atrial Rate : 064 BPM P-R Int : 170 ms QRS Dur : 120 ms QT Int : 446 ms P-R-T Axes : 025 023 037 degrees QTc Int : 460 ms Normal sinus rhythm Normal ECG When compared with ECG of 27-DEC-2019 15:24, Premature supraventricular complexes are no longer Present Right bundle branch block Confirmed by LUCIEN ASHBY, EDISON ([id number]), international editorial producer CECI CARTAGENA ([id number]) on 03/21/2020 9:19:12 AM Referred By: Aundrea Zhou Confirmed By:EDISON MCGRAW MD
[2020-03-20] MEDS: 0.9% Saline Lock 10 ML Syringe IV (09:10)
[2020-03-20] MEDS: Pantoprazole Sodium 20 MG Tablet PO (09:12)
[2020-03-20] MEDS: Spironolactone 25 MG Tablet PO (09:12)
[2020-03-20] MEDS: Furosemide 40 MG/4 ML Vial IV (09:12)
[2020-03-20] MEDS: Lisinopril 40 MG Tablet PO (09:12)
[2020-03-20] MEDS: amLODIPine 5 MG Tablet PO (09:12)
[2020-03-20] MEDS: Aspirin 81 MG TAB.CHEW PO (09:12)
--- NOTE | 2020-03-20 11:45 | PCM.PROGNOTE ---
<Cathleen Patiño - Last Filed: 03/20/20 12:13> Patient Problems: Active and Suspected Problems Decompensated hepatic cirrhosis (Acute) Increased ammonia level (Acute) Subjective: Patient seen and examined. Reports improvement in balance, ambulating. Denies other current complaints. - Physical Exam Vitals/I&O's: Vital Signs Temp Pulse Resp BP Pulse Ox 97.7 F L 79 18 115/56 L 94 03/20/20 09:09 03/20/20 09:09 03/20/20 09:09 03/20/20 09:09 03/20/20 09:09 Oxygen Delivery Method Room Air Weight: 316 lb 5.813 oz Body Mass Index (BMI) 44.1 Finger Stick Blood Glucose 93 Intake and Output for Last 24 Hours 03/18/20 03/19/20 03/20/20 23:59 23:59 23:59 Intake Total 240 / 240 880 / 880 Output Total 300 / 300 2100 / 2100 Balance -60 / -60 -1220 / -1220 General: Alert, Oriented x3, Cooperative HEENT: Atraumatic, PERRLA, EOMI, Normocephalic Neck: Supple, No JVD, Negative Carotid Bruits Lungs: Clear to auscultation, Normal air movement Cardiovascular: Regular rate, No murmurs Abdomen: Bowel Sounds Present, Soft, Non Tender, Obese Extremities: No clubbing, No cyanosis, No edema, Capillary Refill Less than 3 Seconds Skin: No rashes, No breakdown, - - Chronic venous stasis skin changes bilateral lower extremities Musculoskeletal: No Tenderness to Palpation of Joints or Extremities Neurological: Cranial nerves II-XII grossly intact, Neuro grossly intact Psych/Mental Status: Normal Affect, Appropriate Laboratory Results 03/19/20 20:10: WBC 5.7, RBC 3.82 L, Hgb 12.9 L, Hct 38.0 L, MCV 99.5 H, MCH 33.8 H, MCHC 33.9, RDW Std Deviation 46.7 H, RDW Coeff of Reji 13.0, Plt Count 108 L, MPV 9.0, Immature Gran % (Auto) 0.200, Neut % (Auto) 61.4, Lymph % (Auto) 21.9, Metcalfe % (Auto) 14.2 H, Eos % (Auto) 1.6, Baso % (Auto) 0.7, Absolute Neuts (auto) 3.5, Absolute Lymphs (auto) 1.24, Nucleated RBC % 0 03/19/20 20:10: Sodium 144, Potassium 4.0, Chloride 112 H, Carbon Dioxide 30.0, Anion Gap 2 L, BUN 16, Creatinine 1.07, Estim Creat Clear Calc 78.19, Est GFR (MDRD) Af Amer 91, Est GFR (MDRD) Non-Af 75, BUN/Creatinine Ratio 15.0, Glucose 140 H, Calcium 8.4 L, Troponin I 0.096 H 03/19/20 20:10: Total Bilirubin 1.40 H, Direct Bilirubin 0.36 H, AST 36, ALT 13 L, Alkaline Phosphatase 98, Total Protein 6.1 L, Albumin 2.5 L, Globulin 3.6 03/19/20 20:10: Iron 47 L, TIBC 174 L, Iron Saturation 27.0, Ferritin 96, Folate 14.20 03/19/20 20:10: Magnesium 2.1 03/19/20 20:25: Urine Color Yellow, Urine Clarity Clear, Urine pH 6.0, Ur Specific [place] 1.020, Urine Protein 30 H, Urine Glucose (UA) Normal, Urine Ketones 5 H, Urine Occult Blood 150 H, Urine Nitrite Negative, Urine Bilirubin Negative, Urine Urobilinogen 4 H, Ur Leukocyte Esterase 25 H, Urine RBC 0-5 SEEN, Urine WBC 0-5 SEEN, Ur Squamous Epith Cells 0 SEEN, Urine Bacteria 0 SEEN, Urine Mucus 2+ 03/19/20 20:25: Ammonia 139.0 H 03/19/20 23:05: Vitamin B12 615 03/19/20 23:05: PT 16.3 H, INR 1.4, APTT 37.2 H 03/19/20 23:05: Troponin I 0.115 H 03/20/20 01:55: WBC 6.1, RBC 4.11 L, Hgb 13.7, Hct 40.2, MCV 97.8 H, MCH 33.3 H, MCHC 34.1, RDW Std Deviation 46.6 H, RDW Coeff of Reji 13.1, Plt Count 105 L, MPV 8.9, Immature Gran % (Auto) 0.200, Neut % (Auto) 58.0, Lymph % (Auto) 22.8, Metcalfe % (Auto) 16.5 H, Eos % (Auto) 1.8, Baso % (Auto) 0.7, Absolute Neuts (auto) 3.5, Absolute Lymphs (auto) 1.38, Nucleated RBC % 0 03/20/20 01:55: Sodium 147 H, Potassium 3.9, Chloride 112 H, Carbon Dioxide 28.0, Anion Gap 7, BUN 16, Creatinine 1.00, Estim Creat Clear Calc 83.67, Est GFR (MDRD) Af Amer 98, Est GFR (MDRD) Non-Af 81, BUN/Creatinine Ratio 16.0, Glucose 108 H, Calcium 8.6, Total Bilirubin 1.70 H, AST 36, ALT 12 L, Alkaline Phosphatase 96, Total Protein 6.4, Albumin 2.6 L, Globulin 3.8, Albumin/Globulin Ratio 0.7 L 03/20/20 01:55: Ammonia 77.0 H 03/20/20 01:55: Hemoglobin A1c 4.8 03/20/20 01:55: Troponin I 0.106 H Current Medications Acetaminophen (Tylenol) 650 mg PO Q6H PRN PRN PRN Reason: Pain Score 1-10/Temp > 100.7 F Al Hydroxide/Mg Hydroxide (Mylanta Ii) 30 ml PO Q6H PRN PRN PRN Reason: Gastric Burning Albuterol Sulfate (Ventolin Aerosols) 2.5 mg INHALATION Q2H PRN PRN PRN Reason: Dyspnea, wheezing Amlodipine Besylate (Norvasc) 5 mg PO DAILY [facility] Last Admin: 03/20/20 09:12 Dose: 5 mg Documented by: Aspirin (Aspirin, Baby) 81 mg PO DAILY@0800 [facility] Last Admin: 03/20/20 09:12 Dose: 81 mg Documented by: Dextrose (D50w Syringe) 0 gm IV X1 PRN; Protocol PRN Reason: Hypoglycemia Enoxaparin Sodium (Lovenox) 150 mg SC Q12@0600,1800 [facility] Last Admin: 03/20/20 05:38 Dose: 150 mg Documented by: Glucagon () 1 mg IM .X1 PRN PRN Reason: Hypoglycemia Guaifenesin (Robitussin) 20 ml PO Q4H PRN PRN PRN Reason: COUGH Hydralazine HCl (Apresoline Iv) 10 mg IV Q4H PRN PRN PRN Reason: SBP > 160 Sodium Chloride () 250 mls @ 15 mls/hr IV .[id number] PRN PRN Reason: Saline Flush Sodium Chloride () 250 mls @ 15 mls/hr IV .[id number] PRN PRN Reason: Additional IVPB Infusion Sodium Chloride () 250 mls @ 15 mls/hr IV .[id number] PRN PRN Reason: Saline Flush Sodium Chloride () 250 mls @ 15 mls/hr IV .[id number] PRN PRN Reason: Additional IVPB Infusion Lactulose (Chronulac, Cephulac) 20 gm PO Q6H [facility] Last Admin: 03/20/20 11:18 Dose: 20 gm Documented by: Lisinopril (Zestril) 40 mg PO DAILY [facility] Last Admin: 03/20/20 09:12 Dose: 40 mg Documented by: Melatonin (Melatonin) 3 mg PO QHS PRN PRN PRN Reason: INSOMNIA Morphine Sulfate () 2 mg IV Q3H PRN PRN PRN Reason: Pain Score 6-10/10 Nitroglycerin (Nitrostat) 0.4 mg SUBLINGUAL Q5M PRN PRN Reason: CARDIAC/CHEST PAIN Nystatin (Mycostatin Powder) 1 applic TOPICAL TID [facility]; Protocol Last Admin: 03/20/20 05:38 Dose: 1 applicatio Documented by: Ondansetron HCl (Zofran) 4 mg IV Q8H PRN PRN PRN Reason: NAUSEA/VOMITING Oxycodone HCl (Oxyir) 5 mg PO Q4H PRN PRN PRN Reason: Pain Score 4-5/10 Pantoprazole Sodium (Protonix) 20 mg PO DAILY [facility] Last Admin: 03/20/20 09:12 Dose: 20 mg Documented by: Prochlorperazine Edisylate (Compazine Iv) 5 mg IV Q4H PRN PRN PRN Reason: Breakthrough Nausea/Vomiting Sodium Chloride () 10 - 40 ml IV UD PRN PRN Reason: SALINE FLUSH Last Admin: 03/20/20 09:10 Dose: 10 ml Documented by: Spironolactone (Aldactone) 25 mg PO DAILY [facility] Last Admin: 03/20/20 09:12 Dose: 25 mg Documented by: Throat Lozenges (Cepacol Sore Throat Lozenge) 1 lozenge MUCOUS MEM Q2H PRN PRN PRN Reason: SORE THROAT Medical Necessity - Tobacco Use Smoking Status: Never smoker Tobacco Use: Non-smoker Assessment/Plan All Active Problems Hepatic encephalopathy (Acute) Bacteremia (Acute) Cellulitis of right lower leg (Acute) Decompensated hepatic cirrhosis (Acute) Increased ammonia level (Acute) Acute hepatic encephalopathy (Acute) Cellulitis (Resolved) Chest pain (Resolved) Cholecystitis (Resolved) Hepatic encephalopathy (Resolved) Hyperammonemia (Resolved) 1. BOOTHE with decompensated cirrhosis-ammonia 139 on admission. Down to 77. Patient alert and oriented. Continue lactulose, Lasix regimen. Initiated on spironolactone. PT/OT. Patient follows with Dr. Chance, will need outpatient follow up. 2. Chest pain with abnormal troponin-troponin did not trend. EKG without ST-T changes. Echocardiogram completed, report pending. Patient denies further chest pain. If echocardiogram unremarkable, will plan for further outpatient follow-up/stress. 3. Chronic macrocytic anemia-stable, trend CBC. 4. Hypertension-continue home regimen including Norvasc, lisinopril. 5. Hyperlipidemia-fasting lipid panel in a.m. 6. Morbid obesity-encouraged diet and lifestyle modifications. 7. History of CVA-with chronic dysarthria. 8. History of seizures-not on antiepileptic. DVT prophylaxis-Lovenox subcu This patient was seen by MARNI Azevedo under the supervision of Dr. Weiner. <Juan Weiner - Last Filed: 03/20/20 12:24> - Physical Exam Vitals/I&O's: Vital Signs Temp Pulse Resp BP Pulse Ox 97.7 F L 79 18 115/56 L 94 03/20/20 09:09 03/20/20 09:09 03/20/20 09:09 03/20/20 09:09 03/20/20 09:09 Oxygen Delivery Method Room Air Weight: 143.5 kg Body Mass Index (BMI) 44.1 Finger Stick Blood Glucose 93 Intake and Output for Last 24 Hours 03/18/20 03/19/20 03/20/20 23:59 23:59 23:59 Intake Total 240 / 240 880 / 880 Output Total 300 / 300 2100 / 2100 Balance -60 / -60 -1220 / -1220 Laboratory Results 03/19/20 20:10: WBC 5.7, RBC 3.82 L, Hgb 12.9 L, Hct 38.0 L, MCV 99.5 H, MCH 33.8 H, MCHC 33.9, RDW Std Deviation 46.7 H, RDW Coeff of Reji 13.0, Plt Count 108 L, MPV 9.0, Immature Gran % (Auto) 0.200, Neut % (Auto) 61.4, Lymph % (Auto) 21.9, Metcalfe % (Auto) 14.2 H, Eos % (Auto) 1.6, Baso % (Auto) 0.7, Absolute Neuts (auto) 3.5, Absolute Lymphs (auto) 1.24, Nucleated RBC % 0 03/19/20 20:10: Sodium 144, Potassium 4.0, Chloride 112 H, Carbon Dioxide 30.0, Anion Gap 2 L, BUN 16, Creatinine 1.07, Estim Creat Clear Calc 78.19, Est GFR (MDRD) Af Amer 91, Est GFR (MDRD) Non-Af 75, BUN/Creatinine Ratio 15.0, Glucose 140 H, Calcium 8.4 L, Troponin I 0.096 H 03/19/20 20:10: Total Bilirubin 1.40 H, Direct Bilirubin 0.36 H, AST 36, ALT 13 L, Alkaline Phosphatase 98, Total Protein 6.1 L, Albumin 2.5 L, Globulin 3.6 03/19/20 20:10: Iron 47 L, TIBC 174 L, Iron Saturation 27.0, Ferritin 96, Folate 14.20 03/19/20 20:10: Magnesium 2.1 03/19/20 20:25: Urine Color Yellow, Urine Clarity Clear, Urine pH 6.0, Ur Specific [place] 1.020, Urine Protein 30 H, Urine Glucose (UA) Normal, Urine Ketones 5 H, Urine Occult Blood 150 H, Urine Nitrite Negative, Urine Bilirubin Negative, Urine Urobilinogen 4 H, Ur Leukocyte Esterase 25 H, Urine RBC 0-5 SEEN, Urine WBC 0-5 SEEN, Ur Squamous Epith Cells 0 SEEN, Urine Bacteria 0 SEEN, Urine Mucus 2+ 03/19/20 20:25: Ammonia 139.0 H 03/19/20 23:05: Vitamin B12 615 03/19/20 23:05: PT 16.3 H, INR 1.4, APTT 37.2 H 03/19/20 23:05: Troponin I 0.115 H 03/20/20 01:55: WBC 6.1, RBC 4.11 L, Hgb 13.7, Hct 40.2, MCV 97.8 H, MCH 33.3 H, MCHC 34.1, RDW Std Deviation 46.6 H, RDW Coeff of Reji 13.1, Plt Count 105 L, MPV 8.9, Immature Gran % (Auto) 0.200, Neut % (Auto) 58.0, Lymph % (Auto) 22.8, Metcalfe % (Auto) 16.5 H, Eos % (Auto) 1.8, Baso % (Auto) 0.7, Absolute Neuts (auto) 3.5, Absolute Lymphs (auto) 1.38, Nucleated RBC % 0 03/20/20 01:55: Sodium 147 H, Potassium 3.9, Chloride 112 H, Carbon Dioxide 28.0, Anion Gap 7, BUN 16, Creatinine 1.00, Estim Creat Clear Calc 83.67, Est GFR (MDRD) Af Amer 98, Est GFR (MDRD) Non-Af 81, BUN/Creatinine Ratio 16.0, Glucose 108 H, Calcium 8.6, Total Bilirubin 1.70 H, AST 36, ALT 12 L, Alkaline Phosphatase 96, Total Protein 6.4, Albumin 2.6 L, Globulin 3.8, Albumin/Globulin Ratio 0.7 L 03/20/20 01:55: Ammonia 77.0 H 03/20/20 01:55: Hemoglobin A1c 4.8 03/20/20 01:55: Troponin I 0.106 H Current Medications Acetaminophen (Tylenol) 650 mg PO Q6H PRN PRN PRN Reason: Pain Score 1-10/Temp > 100.7 F Al Hydroxide/Mg Hydroxide (Mylanta Ii) 30 ml PO Q6H PRN PRN PRN Reason: Gastric Burning Albuterol Sulfate (Ventolin Aerosols) 2.5 mg INHALATION Q2H PRN PRN PRN Reason: Dyspnea, wheezing Amlodipine Besylate (Norvasc) 5 mg PO DAILY [facility] Last Admin: 03/20/20 09:12 Dose: 5 mg Documented by: Aspirin (Aspirin, Baby) 81 mg PO DAILY@0800 [facility] Last Admin: 03/20/20 09:12 Dose: 81 mg Documented by: Dextrose (D50w Syringe) 0 gm IV X1 PRN; Protocol PRN Reason: Hypoglycemia Enoxaparin Sodium (Lovenox) 150 mg SC Q12@0600,1800 [facility] Last Admin: 03/20/20 05:38 Dose: 150 mg Documented by: Glucagon () 1 mg IM .X1 PRN PRN Reason: Hypoglycemia Guaifenesin (Robitussin) 20 ml PO Q4H PRN PRN PRN Reason: COUGH Hydralazine HCl (Apresoline Iv) 10 mg IV Q4H PRN PRN PRN Reason: SBP > 160 Sodium Chloride () 250 mls @ 15 mls/hr IV .[id number] PRN PRN Reason: Saline Flush Sodium Chloride () 250 mls @ 15 mls/hr IV .[id number] PRN PRN Reason: Additional IVPB Infusion Sodium Chloride () 250 mls @ 15 mls/hr IV .[id number] PRN PRN Reason: Saline Flush Sodium Chloride () 250 mls @ 15 mls/hr IV .[id number] PRN PRN Reason: Additional IVPB Infusion Lactulose (Chronulac, Cephulac) 20 gm PO Q6H [facility] Last Admin: 03/20/20 11:18 Dose: 20 gm Documented by: Lisinopril (Zestril) 40 mg PO DAILY [facility] Last Admin: 03/20/20 09:12 Dose: 40 mg Documented by: Melatonin (Melatonin) 3 mg PO QHS PRN PRN PRN Reason: INSOMNIA Morphine Sulfate () 2 mg IV Q3H PRN PRN PRN Reason: Pain Score 6-10/10 Nitroglycerin (Nitrostat) 0.4 mg SUBLINGUAL Q5M PRN PRN Reason: CARDIAC/CHEST PAIN Nystatin (Mycostatin Powder) 1 applic TOPICAL TID [facility]; Protocol Last Admin: 03/20/20 05:38 Dose: 1 applicatio Documented by: Ondansetron HCl (Zofran) 4 mg IV Q8H PRN PRN PRN Reason: NAUSEA/VOMITING Oxycodone HCl (Oxyir) 5 mg PO Q4H PRN PRN PRN Reason: Pain Score 4-5/10 Pantoprazole Sodium (Protonix) 20 mg PO DAILY [facility] Last Admin: 03/20/20 09:12 Dose: 20 mg Documented by: Prochlorperazine Edisylate (Compazine Iv) 5 mg IV Q4H PRN PRN PRN Reason: Breakthrough Nausea/Vomiting Sodium Chloride () 10 - 40 ml IV UD PRN PRN Reason: SALINE FLUSH Last Admin: 03/20/20 09:10 Dose: 10 ml Documented by: Spironolactone (Aldactone) 25 mg PO DAILY [facility] Last Admin: 03/20/20 09:12 Dose: 25 mg Documented by: Throat Lozenges (Cepacol Sore Throat Lozenge) 1 lozenge MUCOUS MEM Q2H PRN PRN PRN Reason: SORE THROAT Assessment/Plan This patient was seen in conjunction with MARNI Azevedo . I have independently interviewed and examined the patient and reviewed pertinent historical, laboratory, and other data. Please refer to MARNI Azevedo note for details of this patient's presentation, findings, and recommendations. I have reviewed MARNI Azevedo note and concur with documented findings. In brief, patient is 60-year-old gentleman with history of nonalcoholic fatty liver disease who presented with balance issues. Was found to have markedly elevated ammonia level admitted to a monitored bed for further management Physical Examination: GENERAL: cooperative HEENT: Atraumatic; EYES; Anicteric, Normal Conjunctiva NECK; supple, normal thyroid, RESPIRATORY: Diminished to auscultation CARDIOVASCULAR: Regular S1 S2, GI: soft, normoactive bowel sounds, NEURO: Awake; no lateralizing signs. SKIN: No Rash PSYCH; Flat affect Assessment: 1. Acute hepatic encephalopathy with balance issues 2. Non-alcoholic fatty liver disease 3. Anemia secondary to anemia of chronic disorder 4. Essential hypertension 5. Obesity 6. GERD 7. Osteoarthritis 8. Dyslipidemia 9. History of bleeding peptic ulcer 10. Obstructive sleep apnea 11. DVT prophylaxis Recommendations: 1. I have discussed the results of my overview and impressions with the patient 2. Options for management were reviewed Inpatient E&M: [id number] [facility] L2
--- NOTE | 2020-03-20 12:04 | CASEMGMT ---
CARLA GUEVARA assessment: Face to Face with patient for initial transition planning/care coordination assessment. CARLA GUEVARA introduced self and role at [facility], pt voices understanding and consents to assessment at this time. Pt has hx of previous CVA with dysarthria but is able to answer most questions appropriately at this time. Pt is A/Ox4 at this time. Pt is sitting up in bed in no distress at this time. Care providers, pharmacy, and demographics verified at this time. Presentation: Pt c/o 'balance issues' for past several weeks with 3 recent falls-pt c/o left hip pain and abrasion on left amaya Admitting dx: Decompensated cirrhosis, elev NH PCP: Bobo ALMENDAREZ Specialists: Pt states no current specialist. [facility]erred [facility] Insurance: [employer] Prescription Benefit: [employer] Living Will/HPOA: Pt states does not have LW/HPOA and declines AD info at this time. Pt states his is working on it. LNOK: Marielle Elaine, Living Arrangements: Pt states lives with in 1 story condo with 3 steps in and states no concerns at home at this time. Pt states is independent with ADL's. Transportation: Pt states drives self and states no transportation concerns at this time. DME/HHC: Pt states has a cane and walker at home and states no need for any further DME at this time. Pt states has had HHC in the past but not currently and states no hx of SNF. Pt states no concerns with going home at time of discharge. Pt states is disabled. Pt states does not smoke or drink ETOH. Pt states no further concerns/needs at this time. CM to follow for any further discharge planning/needs. Advised pt to ask for CM if any further questions/concerns/needs arise, voices understanding. Pt Goal: Home Plan: [place] CARLA GUEVARA
[2020-03-20] MEDS: Acetaminophen 325 MG Tablet 650 MG PO ×2 (14:22→21:37)
[2020-03-20] MEDS: oxyCODONE 5 MG Tablet PO (21:36)
[2020-03-21 00:10] VITALS: PULSE 57
[2020-03-21 03:00] VITALS: BP 131/89; PULSE 57; RESP 13; TEMP 36.8; O2SAT 95
[2020-03-21 04:00] VITALS: PULSE 56
[2020-03-21] MEDS: Lactulose 20 GM/30 ML UDC PO (05:31)
[2020-03-21] MEDS: Nystatin Powder 15gm Bottle 1 APPLIC TOPICAL (05:31)
[2020-03-21] MEDS: Enoxaparin 150 MG/ML Syringe SC (05:32)
[2020-03-21 06:34] LABS: ALB/GLOB Ratio 0.7 RATIO (0.9-2.4); AST(SGOT) 33 U/L (15-37); Alanine Aminotransfer ALT/SGPT 11 U/L (16-61); Albumin, Serum 2.5 g/dL (3.2-5.0); Alkaline Phosphatase 92 U/L (45-117); Anion Gap 5 (5-15); BUN 21 mg/dL (7-18); BUN/Creat Ratio 22.7 RATIO (10-20); Calcium,Total 8.4 mg/dL (8.5-10.1); Chloride 108 mmol/L (98-107); Cholesterol 146 mg/dL (200); Creatinine, Serum 0.93 mg/dL (0.70-1.30); EST Glomerular Filtration Rate 89 mL/min (>60); Est Glom Filt Rate - Afr Amer 107 mL/min (>60); Estimated Creatinine Clearance 89.96 ml/min; Globulin 3.8 g/dL (2.2-4.2); Glucose 84 mg/dL (74-106); High Density Lipoprotein 34 mg/dL; Potassium 3.7 mmol/L (3.5-5.1); Protein, Total 6.3 g/dL (6.4-8.2); Sodium Level 142 mmol/L (136-145); Triglycerides 57 mg/dL; Very Low Density Lipoprotein 11 mg/dL (5-40)
[2020-03-21 06:48] VITALS: PULSE 67
[2020-03-21] MEDS: Aspirin 81 MG TAB.CHEW PO (07:37)
[2020-03-21 09:00] VITALS: BP 113/50; PULSE 72; RESP 16; TEMP 36.4; O2SAT 95
[2020-03-21] MEDS: Spironolactone 25 MG Tablet PO (09:02)
[2020-03-21] MEDS: amLODIPine 5 MG Tablet PO (09:02)
[2020-03-21] MEDS: Pantoprazole Sodium 20 MG Tablet PO (09:02)
[2020-03-21] MEDS: Lisinopril 40 MG Tablet PO (09:02)
--- NOTE | 2020-03-21 09:07 | DCINST_ITS ---
- Discharge Diagnoses Current Active Problems: Current Active and Chronic Problems HLD (hyperlipidemia) (Chronic) Decompensated hepatic cirrhosis (Acute) Increased ammonia level (Acute) You will use the following diet at home:: Cardiac Discharge Activity: Return to Normal Activity Call your doctor if you observe: Shortness of breath, Dizziness, Fainting spells, Chest pain Allergies/Adverse Reactions: Allergies aspirin Adverse Reaction (Verified 03/19/20 19:13) Upset Stomach Medications to take at Discharge Lisinopril [Zestril] 40 mg PO DAILY 12/24/15 Omeprazole [Prilosec] 20 mg PO DAILY 12/26/19 Amlodipine [Norvasc] 5 mg PO DAILY 12/27/19 Nystatin Powder [Mycostatin Powder] 1 applic TOPICAL TID 12/27/19 Lactulose 30 gm PO TID 30 Days #1 solution 03/21/20 Spironolactone [Aldactone] 25 mg PO DAILY #30 tab 03/21/20 The following prescriptions were given: Spironolactone [Aldactone] 25 mg PO DAILY #30 tab Transmission Status: Pending to [facility] [id number] Lactulose 30 gm PO TID 30 Days #1 solution Transmission Status: Pending to [facility] [id number] Primary Care Physician: Pedro Pablo Broussard III, MD [Primary Care Provider] - Please follow up with your Primary Care Physician in: 1 Week Test Results: Test results from this visit will be discussed in further detail at your follow- up appointment, if applicable. Please Follow Up With: Dr. Chance When: 2 Weeks Proposed Discharge Date: 03/21/20
--- NOTE | 2020-03-21 09:11 | PCM.DC.SUM ---
<Cathleen Patiño - Last Filed: 03/21/20 09:19> Discharge Date and Diagnosis Date of Admission: 03/19/20 Date of Discharge: 03/21/20 - Primary Discharge Diagnosis Acute Problems: Active Problems 1. BOOTHE with decompensated cirrhosis 2. Chest pain with abnormal troponin, ACS ruled out 3. Chronic macrocytic anemia 4. Hypertension 5. Hyperlipidemia 6. Morbid obesity 7. History of CVA 8. 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 No evidence for acute intracranial bleed. If concern for acute infarct MRI recommended Electronically Signed: Gonzalez Arnold MD at 21:10 EDT , Service support , Hip/Pelvis X-Ray 03/19/20 19:54 IMPRESSION: Mild degenerative changes of the left hip. No acute fracture of the left hip or pelvis. Electronically Signed: Gonzalez Arnold MD at 21:33 EDT , Service support , Knee X-Ray 03/19/20 19:54 IMPRESSION: Stable appearance to right knee prosthesis. No evidence for acute fracture Electronically Signed: Gonzalez Arnold MD at 21:29 EDT , Service support , Chest X-Ray 03/19/20 21:00 IMPRESSION: Chronic interstitial changes in the lower lobes. No acute disease Electronically Signed: Gonzalez Arnold MD at 21:30 EDT , Service support , Operations: None Procedures: 2-D Echocardiogram Summary of Care Provided: The patient is a 60 year old M admitted 03/19/2020 due to frequent falls, imbalance and hip pain. 1. BOOTHE with decompensated cirrhosis-ammonia 139 on admission. Trended down. Patient alert and oriented. Home lactulose regimen increased to 30 g 3 times daily. Initiated on spironolactone 25 mg daily. Patient follows with Dr. Chance, will need outpatient follow up. Follow-up with primary care physician in 1 week as well. 2. Chest pain with abnormal troponin-troponin did not trend. EKG without ST-T changes. Echocardiogram completed, demonstrated an EF of 65%, stage I diastolic dysfunction, RVSP estimated to be 35 mmHg. Patient denies further chest pain. Recommend outpatient stress test which can be arranged by primary care provider. 3. Chronic macrocytic anemia-stable. 4. Hypertension-continue home regimen including Norvasc, lisinopril. 5. Hyperlipidemia-not on statin. Fasting lipid panel unremarkable. 6. Morbid obesity-encouraged diet and lifestyle modifications. 7. History of CVA-with chronic dysarthria. 8. History of seizures-not on antiepileptic. 9. SANTHOSH General: Alert, Oriented x3, Cooperative HEENT: Atraumatic, PERRLA, EOMI, Normocephalic Neck: Supple, No JVD, Negative Carotid Bruits Lungs: Clear to auscultation, Normal air movement Cardiovascular: Regular rate, No murmurs Abdomen: Bowel Sounds Present, Soft, Non Tender, Obese Extremities: No clubbing, No cyanosis, No edema, Capillary Refill Less than 3 Seconds Skin: No rashes, No breakdown, - - Chronic venous stasis skin changes bilateral lower extremities Musculoskeletal: No Tenderness to Palpation of Joints or Extremities Neurological: Cranial nerves II-XII grossly intact, Neuro grossly intact Psych/Mental Status: Normal Affect, Appropriate Patient seen and examined prior to discharge. Physical assessment as noted above. Patient is stable for discharge with follow up recommendations as noted above. This patient was seen by MARNI Azevedo under the supervision of Dr. Weiner. - Physical Exam Vitals/I&O's: Vital Signs Temp Pulse Resp BP Pulse Ox 97.5 F L 72 16 113/50 L 95 03/21/20 09:00 03/21/20 09:00 03/21/20 09:00 03/21/20 09:00 03/21/20 09:00 Oxygen Delivery Method Room Air Weight: 316 lb 2.286 oz Body Mass Index (BMI) 44.1 Finger Stick Blood Glucose 93 Intake and Output for Last 24 Hours 03/19/20 03/20/20 03/21/20 23:59 23:59 23:59 Intake Total 240 / 240 1100 / 1300 450 / 450 Output Total 300 / 300 2400 / 2400 Balance -60 / -60 -1300 / -1100 450 / 450 Laboratory Results 03/20/20 01:55: Magnesium 2.0 03/21/20 05:45: Sodium 142, Potassium 3.7, Chloride 108 H, Carbon Dioxide 29.0, Anion Gap 5, BUN 21 H, Creatinine 0.93, Estim Creat Clear Calc 89.96, Est GFR (MDRD) Af Amer 107, Est GFR (MDRD) Non-Af 89, BUN/Creatinine Ratio 22.7 H, Glucose 84, Calcium 8.4 L, Total Bilirubin 2.00 H, AST 33, ALT 11 L, Alkaline Phosphatase 92, Total Protein 6.3 L, Albumin 2.5 L, Globulin 3.8, Albumin/Globulin Ratio 0.7 L, Triglycerides 57, Cholesterol 146, LDL Cholesterol 101, VLDL Cholesterol 11, HDL Cholesterol 34 L 03/21/20 05:45: Ammonia 104.0 H Current Medications Acetaminophen (Tylenol) 650 mg PO Q6H PRN PRN PRN Reason: Pain Score 1-10/Temp > 100.7 F Last Admin: 03/20/20 21:37 Dose: 650 mg Documented by: Al Hydroxide/Mg Hydroxide (Mylanta Ii) 30 ml PO Q6H PRN PRN PRN Reason: Gastric Burning Albuterol Sulfate (Ventolin Aerosols) 2.5 mg INHALATION Q2H PRN PRN PRN Reason: Dyspnea, wheezing Amlodipine Besylate (Norvasc) 5 mg PO DAILY [facility] Last Admin: 03/21/20 09:02 Dose: 5 mg Documented by: Aspirin (Aspirin, Baby) 81 mg PO DAILY@0800 [facility] Last Admin: 03/21/20 07:37 Dose: 81 mg Documented by: Dextrose (D50w Syringe) 0 gm IV X1 PRN; Protocol PRN Reason: Hypoglycemia Enoxaparin Sodium (Lovenox) 150 mg SC Q12@0600,1800 [facility] Last Admin: 03/21/20 05:32 Dose: 150 mg Documented by: Glucagon () 1 mg IM .X1 PRN PRN Reason: Hypoglycemia Guaifenesin (Robitussin) 20 ml PO Q4H PRN PRN PRN Reason: COUGH Hydralazine HCl (Apresoline Iv) 10 mg IV Q4H PRN PRN PRN Reason: SBP > 160 Sodium Chloride () 250 mls @ 15 mls/hr IV .[id number] PRN PRN Reason: Saline Flush Sodium Chloride () 250 mls @ 15 mls/hr IV .[id number] PRN PRN Reason: Additional IVPB Infusion Sodium Chloride () 250 mls @ 15 mls/hr IV .[id number] PRN PRN Reason: Saline Flush Sodium Chloride () 250 mls @ 15 mls/hr IV .[id number] PRN PRN Reason: Additional IVPB Infusion Lactulose (Chronulac, Cephulac) 20 gm PO Q6H [facility] Last Admin: 03/21/20 05:31 Dose: 20 gm Documented by: Lisinopril (Zestril) 40 mg PO DAILY [facility] Last Admin: 03/21/20 09:02 Dose: 40 mg Documented by: Melatonin (Melatonin) 3 mg PO QHS PRN PRN PRN Reason: INSOMNIA Morphine Sulfate () 2 mg IV Q3H PRN PRN PRN Reason: Pain Score 6-10/10 Nitroglycerin (Nitrostat) 0.4 mg SUBLINGUAL Q5M PRN PRN Reason: CARDIAC/CHEST PAIN Nystatin (Mycostatin Powder) 1 applic TOPICAL TID [facility]; Protocol Last Admin: 03/21/20 05:31 Dose: 1 applicatio Documented by: Ondansetron HCl (Zofran) 4 mg IV Q8H PRN PRN PRN Reason: NAUSEA/VOMITING Oxycodone HCl (Oxyir) 5 mg PO Q4H PRN PRN PRN Reason: Pain Score 4-5/10 Last Admin: 03/20/20 21:36 Dose: 5 mg Documented by: Pantoprazole Sodium (Protonix) 20 mg PO DAILY [facility] Last Admin: 03/21/20 09:02 Dose: 20 mg Documented by: Prochlorperazine Edisylate (Compazine Iv) 5 mg IV Q4H PRN PRN PRN Reason: Breakthrough Nausea/Vomiting Sodium Chloride () 10 - 40 ml IV UD PRN PRN Reason: SALINE FLUSH Last Admin: 03/20/20 09:10 Dose: 10 ml Documented by: Spironolactone (Aldactone) 25 mg PO DAILY [facility] Last Admin: 03/21/20 09:02 Dose: 25 mg Documented by: Throat Lozenges (Cepacol Sore Throat Lozenge) 1 lozenge MUCOUS MEM Q2H PRN PRN PRN Reason: SORE THROAT Discharge Diet: Low fat/ Low Cholesterol Discharge Activity: Return to Normal Activity Call your doctor if you observe: Shortness of breath, Dizziness, Fainting spells, Chest pain Home Medications: Medications to take at Discharge Lisinopril [Zestril] 40 mg PO DAILY 12/24/15 Omeprazole [Prilosec] 20 mg PO DAILY 12/26/19 Amlodipine [Norvasc] 5 mg PO DAILY 12/27/19 Nystatin Powder [Mycostatin Powder] 1 applic TOPICAL TID 12/27/19 Lactulose 30 gm PO TID 30 Days #1 solution 03/21/20 Spironolactone [Aldactone] 25 mg PO DAILY #30 tab 03/21/20 Following Prescrptions Were Given to Patient: Spironolactone [Aldactone] 25 mg PO DAILY #30 tab [facility]: [id number] Lactulose 30 gm PO TID 30 Days #1 solution Transmission Status: Received by [id number] Primary Care Physician: Pedro Pablo Broussard III, MD [Primary Care Provider] - Please follow up with your Primary Care Physician in: 1 Week Please Follow Up With: Dr. Chance When: 2 Weeks Disposition: Home Minutes spent on discharge:: 35 Patient Condition:: Stable Medical Necessity - Tobacco Use Smoking Status: Never smoker Tobacco Use: Non-smoker Meaningful Use Info Meaningful Use Diagnoses (Choose all that apply): None applicable <Juan Weiner - Last Filed: 03/21/20 10:42> Discharge Date and Diagnosis - Secondary Discharge Diagnosis Chronic Problems: Chronic Problems BOOTHE (nonalcoholic steatohepatitis) (Chronic) HLD (hyperlipidemia) (Chronic) Stasis dermatitis (Chronic) Morbid obesity with body mass index of 45.0-49.9 in adult (Chronic) GERD (gastroesophageal reflux disease) (Chronic) SANTHOSH (obstructive sleep apnea) (Chronic) Duodenal ulcer (Chronic) Rectal bleed (Chronic) TIA (transient ischemic attack) (Chronic) 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 I have independently interviewed and examined the patient and reviewed pertinent historical, laboratory, and other data. Please refer to MARNI Azevedo note for details of this patient's presentation, findings, and recommendations. I have reviewed MARNI Azevedo note and concur with documented findings. In brief, patient is 60-year-old gentleman with history of nonalcoholic fatty liver disease who presented with balance issues. Was found to have markedly elevated ammonia level admitted to a monitored bed for further management Assessment: 1. Acute hepatic encephalopathy with balance issues 2. Non-alcoholic fatty liver disease 3. Anemia secondary to anemia of chronic disorder 4. Essential hypertension 5. Obesity 6. GERD 7. Osteoarthritis 8. Dyslipidemia 9. History of bleeding peptic ulcer 10. Obstructive sleep apnea 11. DVT prophylaxis Hospital course: As documented above - Physical Exam Vitals/I&O's: Vital Signs Temp Pulse Resp BP Pulse Ox 97.5 F L 72 16 113/50 L 95 03/21/20 09:00 03/21/20 09:00 03/21/20 09:00 03/21/20 09:00 03/21/20 09:00 Oxygen Delivery Method Room Air Weight: 143.4 kg Body Mass Index (BMI) 44.1 Finger Stick Blood Glucose 93 Intake and Output for Last 24 Hours 03/19/20 03/20/20 03/21/20 23:59 23:59 23:59 Intake Total 240 / 240 1100 / 1300 450 / 450 Output Total 300 / 300 2400 / 2400 Balance -60 / -60 -1300 / -1100 450 / 450 Laboratory Results 03/20/20 01:55: Magnesium 2.0 03/21/20 05:45: Sodium 142, Potassium 3.7, Chloride 108 H, Carbon Dioxide 29.0, Anion Gap 5, BUN 21 H, Creatinine 0.93, Estim Creat Clear Calc 89.96, Est GFR (MDRD) Af Amer 107, Est GFR (MDRD) Non-Af 89, BUN/Creatinine Ratio 22.7 H, Glucose 84, Calcium 8.4 L, Total Bilirubin 2.00 H, AST 33, ALT 11 L, Alkaline Phosphatase 92, Total Protein 6.3 L, Albumin 2.5 L, Globulin 3.8, Albumin/Globulin Ratio 0.7 L, Triglycerides 57, Cholesterol 146, LDL Cholesterol 101, VLDL Cholesterol 11, HDL Cholesterol 34 L 03/21/20 05:45: Ammonia 104.0 H Current Medications Acetaminophen (Tylenol) 650 mg PO Q6H PRN PRN PRN Reason: Pain Score 1-10/Temp > 100.7 F Last Admin: 03/20/20 21:37 Dose: 650 mg Documented by: Al Hydroxide/Mg Hydroxide (Mylanta Ii) 30 ml PO Q6H PRN PRN PRN Reason: Gastric Burning Albuterol Sulfate (Ventolin Aerosols) 2.5 mg INHALATION Q2H PRN PRN PRN Reason: Dyspnea, wheezing Amlodipine Besylate (Norvasc) 5 mg PO DAILY [facility] Last Admin: 03/21/20 09:02 Dose: 5 mg Documented by: Aspirin (Aspirin, Baby) 81 mg PO DAILY@0800 [facility] Last Admin: 03/21/20 07:37 Dose: 81 mg Documented by: Dextrose (D50w Syringe) 0 gm IV X1 PRN; Protocol PRN Reason: Hypoglycemia Enoxaparin Sodium (Lovenox) 150 mg SC Q12@0600,1800 [facility] Last Admin: 03/21/20 05:32 Dose: 150 mg Documented by: Glucagon () 1 mg IM .X1 PRN PRN Reason: Hypoglycemia Guaifenesin (Robitussin) 20 ml PO Q4H PRN PRN PRN Reason: COUGH Hydralazine HCl (Apresoline Iv) 10 mg IV Q4H PRN PRN PRN Reason: SBP > 160 Sodium Chloride () 250 mls @ 15 mls/hr IV .[id number] PRN PRN Reason: Saline Flush Sodium Chloride () 250 mls @ 15 mls/hr IV .[id number] PRN PRN Reason: Additional IVPB Infusion Sodium Chloride () 250 mls @ 15 mls/hr IV .[id number] PRN PRN Reason: Saline Flush Sodium Chloride () 250 mls @ 15 mls/hr IV .[id number] PRN PRN Reason: Additional IVPB Infusion Lactulose (Chronulac, Cephulac) 20 gm PO Q6H [facility] Last Admin: 03/21/20 05:31 Dose: 20 gm Documented by: Lisinopril (Zestril) 40 mg PO DAILY [facility] Last Admin: 03/21/20 09:02 Dose: 40 mg Documented by: Melatonin (Melatonin) 3 mg PO QHS PRN PRN PRN Reason: INSOMNIA Morphine Sulfate () 2 mg IV Q3H PRN PRN PRN Reason: Pain Score 6-10/10 Nitroglycerin (Nitrostat) 0.4 mg SUBLINGUAL Q5M PRN PRN Reason: CARDIAC/CHEST PAIN Nystatin (Mycostatin Powder) 1 applic TOPICAL TID [facility]; Protocol Last Admin: 03/21/20 05:31 Dose: 1 applicatio Documented by: Ondansetron HCl (Zofran) 4 mg IV Q8H PRN PRN PRN Reason: NAUSEA/VOMITING Oxycodone HCl (Oxyir) 5 mg PO Q4H PRN PRN PRN Reason: Pain Score 4-5/10 Last Admin: 03/20/20 21:36 Dose: 5 mg Documented by: Pantoprazole Sodium (Protonix) 20 mg PO DAILY [facility] Last Admin: 03/21/20 09:02 Dose: 20 mg Documented by: Prochlorperazine Edisylate (Compazine Iv) 5 mg IV Q4H PRN PRN PRN Reason: Breakthrough Nausea/Vomiting Sodium Chloride () 10 - 40 ml IV UD PRN PRN Reason: SALINE FLUSH Last Admin: 03/20/20 09:10 Dose: 10 ml Documented by: Spironolactone (Aldactone) 25 mg PO DAILY [facility] Last Admin: 03/21/20 09:02 Dose: 25 mg Documented by: Throat Lozenges (Cepacol Sore Throat Lozenge) 1 lozenge MUCOUS MEM Q2H PRN PRN PRN Reason: SORE THROAT Inpatient E&M: 89225 Subs Hosp L2
--- NOTE | 2020-03-21 09:23 | CASEMGMT ---
CARLA GUEVARA NOTE: Reviewed PT/OT notes. Additional therapy recommended. CARLA CM to room to discuss discharge planning with pt. He was made aware of PT/OT recommendations. Pt states he and his go to [facility] usually every other day. He denies wanting OP PT/OT or HHC. He states he just wants to continue to do what they have been doing and feels he is at his baseline. Pt made aware, that if in the future, he wishes to have further therapy, to discuss this with his PCP. Pt voices understanding. Pt denies any other discharge concerns at this time. Made aware to ask for CM if anything arises. Saumya FIGUEROA RN, CM
--- NOTE | 2020-03-21 10:08 | PHA.DC.MC ---
Pharmacy Service has performed discharge medication reconciliation and counseling for this patient. The patient's discharge medication list was reviewed for discrepancies and discrepancies were resolved. The patient was counseled on the following discharge medications and changes in medications for homegoing were reviewed. 1. LACTULOSE 2. ALDACTONE The Reason for Use, instructions for use, and potential side effects were reviewed for all new medications. The patient's questions regarding all of their medications were answered. The patient demonstrated some understanding but would benefit from further education and reinforcement. Home Medications Lisinopril [Zestril] 40 mg PO DAILY 12/24/15 Omeprazole [Prilosec] 20 mg PO DAILY 12/26/19 Amlodipine [Norvasc] 5 mg PO DAILY 12/27/19 Nystatin Powder [Mycostatin Powder] 1 applic TOPICAL TID 12/27/19 Lactulose 30 gm PO TID 30 Days #1 solution 03/21/20 Spironolactone [Aldactone] 25 mg PO DAILY #30 tab 03/21/20 NOTE: Per patient's request, this pharmacist also contacted [facility] pharmacy where his outpatient medications were sent. Patient was wondering about the cost of medications. Called [facility] pharmacy to obtain garcia of Aldactone at this time, which was 31 cents. Verbalized charge of medication to patient at this time.
== END 2020-03-21 10:51 | disposition home or self-care (01) | DRG 442 ==
LOC: ED 20:24 → PCU 22:36
PROVIDERS: Nurse Practitioner Family; Admitting Provider Family Medicine; Emergency Provider Emergency Medicine; PCP Family Medicine; Referring Provider Family Medicine; Visit Provider Internal Medicine
DX: K72.00 Acute and subacute hepatic failure without coma (principal); Z68.41 Body mass index [BMI] 40.0-44.9, adult; K75.81 Nonalcoholic steatohepatitis (NASH); K74.60 Unspecified cirrhosis of liver; R07.9 Chest pain, unspecified; D53.9 Nutritional anemia, unspecified; I10 Essential (primary) hypertension; E78.5 Hyperlipidemia, unspecified; E66.01 Morbid (severe) obesity due to excess calories; Z86.73 Personal history of transient ischemic attack (TIA), and cerebral infarction without residual deficits; R56.9 Unspecified convulsions; R29.6 Repeated falls; I87.2 Venous insufficiency (chronic) (peripheral); K21.9 Gastro-esophageal reflux disease without esophagitis; G47.33 Obstructive sleep apnea (adult) (pediatric); M19.90 Unspecified osteoarthritis, unspecified site; Z91.11 Patient's noncompliance with dietary regimen; Z79.899 Other long term (current) drug therapy; R73.9 Hyperglycemia, unspecified; D63.8 Anemia in other chronic diseases classified elsewhere; Z87.11 Personal history of peptic ulcer disease
CPT/HCPCS: 36415; 70450; 71045; 73502; 73564; 80048; 80053; 80061; 80076; 81001; 82140; 82607; 82728; 82746; 83036; 83540; 83550; 83735; 84484; 85025; 85610; 85730; 93005; 93306; 97162; 97166; 97530; 97802; 99285; Q9957; A4216; J1940

== ENCOUNTER 2020-03-21 13:56 | Observation (INO) | payer MEDICARE, SELFPAY ==
[2020-03-21 13:57] VITALS: BP 148/67; PULSE 94; RESP 24; TEMP 36.9; O2SAT 96; BMI 44.6
--- NOTE | 2020-03-21 14:11 | RAD_ITS ---
STUDY: X-RAY - LEFT KNEE REASON FOR EXAM: Male, 60 years old. FALL, LEFT KNEE PAIN AND BRUISE TECHNIQUE: 4 view(s) of the knee. COMPARISON: None. FINDINGS: Normal visualized distal femur. Normal visualized proximal tibia and fibula. Normal proximal tibiofibular articulation. The patient is status post total knee replacement. There is good alignment. Soft tissue swelling. Joint effusion. Soft tissue calcification anteriorly suggestive of a myositis ossificans. RAD/Knee 4 or More Views IMPRESSION: Status post total knee replacement. There is good alignment. Soft tissue swelling and small joint effusion with findings suggestive of myositis ossificans in the anterior soft tissues. Electronically Signed: Luisito Mahmood, at 14:47 EDT , Service support ,
[2020-03-21 14:33] LABS: Bacteria 0 SEEN /hpf (None Seen); Mucous, Urine 0 SEEN /hpf (<or=2+); White Blood Cells 0 SEEN /hpf (0-5)
[2020-03-21 14:36] LABS: Color, Urine Yellow (Yellow); Glucose, Dipstick Normal (Normal); Ketone-Dipstick 5 mg/dl (Negative); Leukocyte Esterase-Dipstick 25 /ul (Negative); Nitrite-Dipstick Negative (Negative); Occult Blood-Urine 150 /ul (Negative); Protein-Dipstick 30 mg/dl (Negative); Urine Clarity Clear (Clear); Urine Urobilinogen 8 mg/dl (Normal)
[2020-03-21 14:37] LABS: Urine Bilirubin Dipstick 1 mg/dL (Negative)
[2020-03-21 14:44] LABS: Red Blood Cells-Urine 0-5 SEEN /hpf (0-5); Squamous Epithelial Cells - UA 0-5 SEEN /hpf (0-5)
--- NOTE | 2020-03-21 15:10 | ED.DCSUM_ITS ---
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 He was actually discharged from here earlier today. He has fallen 4 times since his discharge from here and his states that he likely needs rehab or placement. He is complaining of left knee pain. He is not acutely confused. He did not hit his head. There is no loss of consciousness. He has been unable to get up and ambulate on his own since this occurred. Prior similar symptoms: Yes Recent Illness/Hospitalization: Yes <Froylan Rosenthal - Last Filed: 03/21/20 16:15> <Ginette Bob - Last Filed: 03/21/20 23:29> Chief Complaint: Weakness Past Medical History Prior records reviewed: Yes Past Medical History: - - BOOTHE, hepatic cirrhosis and history of encephalopathy, hypertension, hyperlipidemia, GERD, sleep apnea, TIA Surgical History: cholecystectomy, total knee arthroplasty, - - Liver biopsy, bilateral total knee replacement, tonsillectomy, cholecystectomy. Lives: With Family Smoking Status: Never smoker Alcohol: None Drugs: None - Family History Maternal Family History: Reports: Cancer Paternal Family History: Reports: Diabetes, Dementia <Froylan Rosenthal - Last Filed: 03/21/20 16:15> <Ginette Bob - Last Filed: 03/21/20 23:29> - Allergies and Home Meds Allergies/Adverse Reactions: Allergies aspirin Adverse Reaction (Verified 03/19/20 19:13) Upset Stomach Review of Systems All systems negative except as indicated General: Denies: Chills, Fever, Sweats Eyes: Denies: Visual changes - bilaterally, Diplopia ENT: Denies: Rhinorrhea, Sore throat Cardiovascular: Denies: Chest pain, Palpitations Respiratory: Denies: Dyspnea, Cough, Dyspnea on exertion Gastrointestinal: Denies: Abdominal pain, Nausea, Vomiting, Diarrhea, Melena, Hematochezia Genitourinary: Denies: Dysuria, Hematuria, Frequency Musculoskeletal: Reports: Swelling, Extremity Pain. Denies: Back pain Skin: Reports: Abrasions. Denies: Rash, Wounds Neurological: Denies: Headache, Weakness, Numbness <Froylan Rosenthal - Last Filed: 03/21/20 16:15> Physical Exam Vital Signs/Narrative: Vital Signs Temp Pulse Resp BP Pulse Ox 03/21/20 13:57 98.5 F 94 24 H 148/67 H 96 Inital Vital Signs reviewed: Yes General: Well nourished, Well developed Head: Normocephalic, Atraumatic Eyes: Perrl, EOMI ENT: TM's clear, No hemotympanum or drainage, No trauma Neck: Nontender, Full ROM Cardiovascular: Regular rate, Regular rhythm, No murmurs Respiratory: No distress, CTA bilaterally, Chest nontender Abdomen: Soft, Nontender, Nondistended, Normal bowel sounds Back: Nontender Extremeties: Patient has an abrasion over the left knee. The skin otherwise is unremarkable. He has tenderness on palpation around the knee but his range of motion is normal, he is neurovascularly intact distally Skin: Normal color, No rash Neurological: Alert, Oriented x3, Cranial nerves II-XII grossly intact, Normal Strength, Normal Sensation Psychological: Normal affect, Normal Mood <Froylan Rosenthal - Last Filed: 03/21/20 16:15> Diagnostic/Tx/Re-eval Laboratory Tests 03/21/20 03/21/20 Range/Units 15:05 14:26 WBC 5.6 (4.4-11.0) K/mm3 RBC 3.95 L (4.6-6.2) M/mm3 Hgb 13.4 (13.0-16.5) g/dL Hct 39.6 L (40-54) % MCV 100.3 H (80-94) fL MCH 33.9 H (27.0-32.0) pg MCHC 33.8 (32-36) g/dL RDW Std Deviation 49.1 H (35.1-43.9) fl RDW Coeff of Reji 13.2 (11.6-14.6) % Plt Count 105 L (150-450) K/mm3 MPV 8.9 (6.2-12.0) fl Immature Gran % (Auto) 0.200 (0.0-0.9) % Neut % (Auto) 68.8 (47-70) % Lymph % (Auto) 16.4 L (19-41) % Hill % (Auto) 13.0 H (0-10) % Eos % (Auto) 1.1 (0-5) % Baso % (Auto) 0.5 (0-1) % Absolute Neuts (auto) 3.8 (2.0-7.7) X10^3/uL Absolute Lymphs (auto) 0.91 (0.83-4.51) X10^3/uL Nucleated RBC % 0 (0-5) % Urine Color Yellow (Yellow) Urine Clarity Clear (Clear) Urine pH 6.0 (5.0 - 8.0) Ur Specific [place] 1.020 (1.002-1.030) Urine Protein 30 H (Negative) mg/dl Urine Glucose (UA) Normal (Normal) mg/dl Urine Ketones 5 H (Negative) mg/dl Urine Occult Blood 150 H (Negative) /ul Urine Nitrite Negative (Negative) Urine Bilirubin 1 H (Negative) mg/dL Urine Urobilinogen 8 H (Normal) mg/dl Ur Leukocyte Esterase 25 H (Negative) /ul Urine RBC 0-5 SEEN (0-5) /hpf Urine WBC 0 SEEN (0-5) /hpf Ur Squamous Epith Cells 0-5 SEEN (0-5) /hpf Urine Bacteria 0 SEEN (None Seen) /hpf Urine Mucus 0 SEEN (<or=2+) /hpf - Medical Decision Making Patient had labs drawn this morning and we only redraw a CBC got a urine sample which are unremarkable. He will need admitted for placement. His vital signs are stable. We feel he stable for the floor. His was updated. Hospitalist was spoken to in the emergency department <Froylan Rosenthal - Last Filed: 03/21/20 16:15> - Medical Decision Making I have personally performed a [id number] assessment of the patient and have reviewed the PA note. My wright findings include: 60-year-old male presenting with multiple falls. Patient was discharged from hospital earlier today. He complains of left knee pain. He has multiple abrasions bilateral lower extremities. does not feel she can care for him at home at this time. Discussed with the hospitalist for re-admission. 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
--- NOTE | 2020-03-21 15:11 | PCM.HP.STD ---
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 Comment: old stroke not visible on MRI- [facility] neurology opinion (9) GERD (gastroesophageal reflux disease) Status: Chronic Qualifiers: Esophagitis presence: esophagitis presence not specified Qualified Code(s): K21.9 - Gastro-esophageal reflux disease without esophagitis (10) HLD (hyperlipidemia) Status: Chronic Qualifiers: Hyperlipidemia type: unspecified Qualified Code(s): E78.5 - Hyperlipidemia, unspecified (11) HTN (hypertension) Status: Chronic Qualifiers: Hypertension type: essential hypertension Qualified Code(s): I10 - Essential (primary) hypertension (12) History of peptic ulcer Status: Chronic (13) Morbid obesity with body mass index of 45.0-49.9 in adult Status: Chronic (14) RICCI (nonalcoholic steatohepatitis) Status: Chronic (15) SANTHOSH (obstructive sleep apnea) Status: Chronic (16) Osteoarthritis Status: Chronic Qualifiers: Osteoarthritis location: unspecified site Osteoarthritis type: unspecified Qualified Code(s): M19.90 - Unspecified osteoarthritis, unspecified site (17) Rectal bleed Status: Resolved (18) Stasis dermatitis Status: Chronic Qualifiers: Laterality: bilateral Qualified Code(s): I87.2 - Venous insufficiency (chronic) (peripheral) (19) TIA (transient ischemic attack) Status: Chronic Qualifiers: Transient cerebral ischemia type: unspecified Qualified Code(s): G45.9 - Transient cerebral ischemic attack, unspecified (20) Aspiration pneumonia Status: Resolved History of Present Illness Date of Admission: 03/21/20 Chief Complaint: Left hip pain with left lower extremity instability and recurrent falls. The patient is a 60 year old M who presents to the emergency room due to multiple falls at home. He was discharged home from the hospital earlier today following treatment for decompensated cirrhosis. Patient was anxious to get home at that time and states he did well with therapy using walker earlier today. He denies left lower extremity weakness and is able to move left lower extremity however he feels like he cannot bear weight on his left leg. Patient had increased left hip pain with lifting of the left leg. Patient has multiple abrasions bilateral lower extremities due to falls at home. He denies hitting his head or other injury. He does report left knee tenderness as well. at bedside would like patient to go to SNF/rehab at discharge for further therapy. He has a past medical history of Ricci with cirrhosis, chronic microcytic anemia, hypertension, hyperlipidemia, morbid obesity, history of CVA with residual dysarthria, history of seizures, SANTHOSH. 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) old stroke not visible on MRI- [facility] neurology opinion History of peptic ulcer (Chronic) Osteoarthritis (Chronic) HTN (hypertension) (Chronic) Allergies aspirin Adverse Reaction (Verified 03/19/20 19:13) Upset Stomach Home Medications: Ambulatory Orders Medication Instructions Recorded Lisinopril [Zestril] 40 mg PO DAILY 12/24/15 Omeprazole [Prilosec] 20 mg PO DAILY 12/26/19 Amlodipine [Norvasc] 5 mg PO DAILY 12/27/19 Nystatin Powder [Mycostatin Powder] 1 applic TOPICAL TID 12/27/19 Lactulose 30 gm PO TID 30 Days #1 solution 03/21/20 Spironolactone [Aldactone] 25 mg PO DAILY #30 tab 03/21/20 Surgical History: cholecystectomy, total knee arthroplasty, - - Liver biopsy, bilateral total knee replacement, tonsillectomy, cholecystectomy. Psychiatric History: No pertinent psych hx Lives: Spouse/ Significant Other Smoking Status: Never smoker Alcohol: None Drugs: None - *Family History Maternal History Items: Cancer Paternal History Items: Diabetes, Dementia Review of Systems Constitutional: Denies: Chills, Fever, Weight Change HEENT: Denies: Head Aches, Sinus Congestion, Sinus Drainage Cardiovascular: Denies: Chest Pain, Palpitations Respiratory: Denies: Cough, Shortness of breath at rest, Sputum production Gastrointestinal: Denies: Abdominal Pain, Nausea, Vomiting Genitourinary: Denies: Dysuria Musculoskeletal: Reports: Joint Tenderness - left hip. Denies: Joint Pain Skin: Reports: - - BL LE wounds. Denies: Rash Neurological: Denies: Numbness, Tingling, Focal weakness Psychiatric: Denies: Anxiety, Depression, Homicidal Ideations, Suicidal Ideations Hematologic/ Lymphatic: Denies: Easy Bruising, Easy Bleeding VTE Information - Inpt Only VTE Present on Admission: No VTE Mechan Device Prophylaxis: None VTE Pharm Prophylaxis ordered?: Yes - Physical Exam Vitals/I&O's: Vital Signs Temp Pulse Resp BP Pulse Ox 98.5 F 94 24 H 148/67 H 96 03/21/20 13:57 03/21/20 13:57 03/21/20 13:57 03/21/20 13:57 03/21/20 13:57 Oxygen Delivery Method Room Air Weight: 319 lb 14.252 oz Body Mass Index (BMI) 44.6 Finger Stick Blood Glucose 93 General: Alert, Oriented x3, Cooperative HEENT: Atraumatic, PERRLA, EOMI, Normocephalic Neck: Supple, No JVD, Negative Carotid Bruits Lungs: Clear to auscultation, Normal air movement Cardiovascular: Regular rate, No murmurs Abdomen: Bowel Sounds Present, Soft, Non Tender, Non-Distended, Obese Extremities: No clubbing, No cyanosis Skin: - - Bilateral lower extremity abrasions with left lateral leg skin tear actively bleeding. Chronic venous stasis skin changes bilateral lower extremities. Musculoskeletal: Tenderness - left hip Neurological: Cranial nerves II-XII grossly intact, Neuro grossly intact Psych/Mental Status: Normal Affect, Appropriate Laboratory Results 03/21/20 14:26: Urine Color Yellow, Urine Clarity Clear, Urine pH 6.0, Ur Specific [place] 1.020, Urine Protein 30 H, Urine Glucose (UA) Normal, Urine Ketones 5 H, Urine Occult Blood 150 H, Urine Nitrite Negative, Urine Bilirubin 1 H, Urine Urobilinogen 8 H, Ur Leukocyte Esterase 25 H, Urine RBC 0-5 SEEN, Urine WBC 0 SEEN, Ur Squamous Epith Cells 0-5 SEEN, Urine Bacteria 0 SEEN, Urine Mucus 0 SEEN 03/21/20 15:05: WBC Pending, RBC Pending, Hgb Pending, Hct Pending, MCV Pending, MCH Pending, MCHC Pending, RDW Std Deviation Pending, RDW Coeff of Reji Pending, Plt Count Pending, Neut % (Auto) Pending, Absolute Neuts (auto) Pending Assessment/Plan All Active Problems Frequent falls (Acute) Abrasion, left knee, initial encounter (Acute) Contusion of left knee (Acute) Acute hepatic encephalopathy (Resolved) Aspiration pneumonia (Resolved) Bacteremia (Resolved) Cellulitis (Resolved) Cellulitis of right lower leg (Resolved) Chest pain (Resolved) Cholecystitis (Resolved) Decompensated hepatic cirrhosis (Resolved) Duodenal ulcer (Resolved) Hepatic encephalopathy (Resolved) Hepatic encephalopathy (Resolved) Hyperammonemia (Resolved) Rectal bleed (Resolved) 1. Left hip pain with left lower extremity instability and recurrent falls-hip and pelvis x-ray 03/19/2020 showed mild degenerative changes of the left hip without acute fracture. Will repeat left hip and pelvis x-ray. Pending further imaging, patient may require CT for further evaluation. PT/OT. PRN pain regimen. Patient and agreeable to SNF/rehab at discharge. Fall precautions. Wound RN consult for lower extremity wounds. 2. RICCI with cirrhosis-recent decompensation. Now stable. Home lactulose regimen increased to 30 g 3 times daily. Continue spironolactone 25 mg daily. Patient follows with Dr. Chance, will need outpatient follow up. 3. Chronic macrocytic anemia-stable. 4. Hypertension-continue home regimen including Norvasc, lisinopril. 5. Hyperlipidemia-not on statin. Recent fasting lipid panel unremarkable. 6. Morbid obesity-encouraged diet and lifestyle modifications. 7. History of CVA-with chronic dysarthria. 8. History of seizures-not on antiepileptic. 9. SANTHOSH DVT prophylaxis-Lovenox subcu This patient was seen by MARNI Azevedo under the supervision of Dr. Ulrich. <Carrol Ulrich - Last Filed: 03/21/20 19:12> History of Present Illness I agree with the above and addition information from my independent history is below The patient is a 60 year old M who was d/c home from the hospital today after coming in for falls and hepatic encephalopathy. Prior to d/c he was ambulating with a wheeled walker and was doing so independently but had 3 falls after arriving home. Pt has frequent admissions for the above and relies on his to help him at home. He fell going up the stairs trying to get into the house, then he fell in the shower and his last fall was related to him sliding off of the toilet. He is c/o pain in his L knee (s/p TKA and films are neg) and L hip (had recent hip and pelvic xrays prior to this fall). His states that she cannot take care of him with him falling like this and needs to purse Rehab/SNF at d/c. Past Medical History Allergies aspirin Adverse Reaction (Verified 03/19/20 19:13) Upset Stomach Review of Systems Constitutional: Reports: Weakness. Denies: Anorexia, Night Sweats, Malaise, Fatigue Eyes: Reports: Double vision. Denies: Blurred vision HEENT: Reports: - - chronic dysarthria. Denies: Difficulty Hearing Cardiovascular: Reports: Edema - chronic. Denies: Claudication, Chest Pressure, Chest Tightness Respiratory: Denies: Shortness of Breath, Shortness of breath upon exertion Gastrointestinal: Reports: Diarrhea. Denies: Constipation Musculoskeletal: Reports: Joint stiffness - L knee and hip Neurological: Reports: Balance problems, Change in Speech - baseline. Denies: Blurred vision, Double vision, Confusion, Difficulty swallowing, Seizures Endocrine: Denies: Change in Body Habitus, Heat/ Cold Intolerance Hematologic/ Lymphatic: Reports: Anemia. Denies: Adenopathy - Physical Exam Vitals/I&O's: Vital Signs Temp Pulse Resp BP Pulse Ox 98.2 F 81 18 128/70 H 96 03/21/20 17:34 03/21/20 17:34 03/21/20 17:34 03/21/20 17:34 03/21/20 17:34 Oxygen Delivery Method Room Air Weight: 143.5 kg Body Mass Index (BMI) 44.1 Finger Stick Blood Glucose 93 Intake and Output for Last 24 Hours 03/19/20 03/20/20 03/21/20 23:59 23:59 23:59 Intake Total 200 / 200 Output Total 100 / 100 Balance 100 / 100 General: No apparent distress, Well developed, Well nourished, - - calm with at bedside HEENT: EAC Clear Oral: Moist Mucosa, No Gingival or Mucosal Lesions/ Ulcerations Neck: No Nodes, Trachea Midline, Thyroid Normal Size and Texture Lungs: No rhonchi, No wheeze, No rales Cardiovascular: Regular Rhythm, Normal S1, Normal S2, No rub noted, No Gallop Abdomen: Hernia - small umbilical Extremities: Edema, Peripheral Pulses Normal Skin: Skin Tear - multiple B LE excoriations Musculoskeletal: - - tender L Hip and knee with pain with PROM Lymphatic: No Cervical, Supraclavicular, or Inguinal Adenopathy Neurological: Deep Tendon Reflexes 2+/4 and Symmetrical, - - generalized weakness Laboratory Results 03/21/20 14:26: Urine Color Yellow, Urine Clarity Clear, Urine pH 6.0, Ur Specific [place] 1.020, Urine Protein 30 H, Urine Glucose (UA) Normal, Urine Ketones 5 H, Urine Occult Blood 150 H, Urine Nitrite Negative, Urine Bilirubin 1 H, Urine Urobilinogen 8 H, Ur Leukocyte Esterase 25 H, Urine RBC 0-5 SEEN, Urine WBC 0 SEEN, Ur Squamous Epith Cells 0-5 SEEN, Urine Bacteria 0 SEEN, Urine Mucus 0 SEEN 03/21/20 15:05: WBC 5.6, RBC 3.95 L, Hgb 13.4, Hct 39.6 L, MCV 100.3 H, MCH 33.9 H, MCHC 33.8, RDW Std Deviation 49.1 H, RDW Coeff of Reji 13.2, Plt Count 105 L, MPV 8.9, Immature Gran % (Auto) 0.200, Neut % (Auto) 68.8, Lymph % (Auto) 16.4 L, [place] % (Auto) 13.0 H, Eos % (Auto) 1.1, Baso % (Auto) 0.5, Absolute Neuts (auto) 3.8, Absolute Lymphs (auto) 0.91, Nucleated RBC % 0 03/21/20 15:05: Sodium 143, Potassium 3.9, Chloride 109 H, Carbon Dioxide 31.0, Anion Gap 3 L, BUN 23 H, Creatinine 1.10, Estim Creat Clear Calc 76.06, Est GFR (MDRD) Af Amer 88, Est GFR (MDRD) Non-Af 73, BUN/Creatinine Ratio 20.9 H, Glucose 113 H, Calcium 8.9 Current Medications Acetaminophen (Tylenol) 650 mg PO Q6H PRN PRN PRN Reason: Pain Score 1-10/Temp > 100.7 F Last Admin: 03/21/20 18:45 Dose: 650 mg Documented by: Amlodipine Besylate (Norvasc) 5 mg PO DAILY [facility] Ascorbic Acid (Vitamin C) 1,000 mg PO DAILY [facility] Bacitracin (Bacitracin Ointment) 1 applic TOPICAL BID [facility]; Protocol Dextrose (D50w Syringe) 0 gm IV X1 PRN; Protocol PRN Reason: Hypoglycemia Enoxaparin Sodium (Lovenox) 40 mg SC DAILY [facility] Glucagon () 1 mg IM .X1 PRN PRN Reason: Hypoglycemia Lactulose (Chronulac, Cephulac) 20 gm PO TID [facility] Lisinopril (Zestril) 40 mg PO DAILY [facility] Ondansetron HCl (Zofran) 4 mg IV Q8H PRN PRN PRN Reason: NAUSEA/VOMITING Oxycodone HCl (Oxyir) 10 mg PO Q4H PRN PRN PRN Reason: Pain Score 4-5/10 Pantoprazole Sodium (Protonix) 20 mg PO DAILY [facility] Sodium Chloride () 10 - 40 ml IV UD PRN PRN Reason: SALINE FLUSH Spironolactone (Aldactone) 25 mg PO DAILY [facility] Assessment/Plan Agree with above and the following is addenedum based on my independent exam L Knee and hip pain -if pain persists and pt unable to bear weight and ambulate as was prior may want to consider CT -not MRI candidate with TKA B LE RICCI Cirrhosis -currently compensated -continue lactulose as pt was on at d/c -goal 2-3 BM/day -pt was to be on rifaximin but not currently 2/2 cost prohibitive Mild RODERICK -repeat BMP in am -will continue diuresis for now Debility -pt with frequent falls and unable to care -will need PT/OT -?Rehab at d/c -would recommend home eval prior to pt being d/c back home
[2020-03-21 15:13] LABS: Absolute Lymphocyte Count 0.91 X10^3/uL (0.83-4.51); Absolute Neutrophil Count 3.8 X10^3/uL (2.0-7.7); Basophil# 0.03 X10^3/uL; Basophil% 0.5 % (0-1); Eosinophil# 0.06 X10^3/uL; Eosinophils% 1.1 % (0-5); Hematocrit 39.6 % (40-54); Hemoglobin 13.4 g/dL (13.0-16.5); Lymphocyte # 0.91 X10^3/ul (4.0); Lymphocyte % 16.4 % (19-41); Mean Corp Hgb Conc 33.8 g/dL (32-36); Mean Corpuscular Hgb 33.9 pg (27.0-32.0); Mean Corpuscular Volume 100.3 fL (80-94); Mean Platelet Vol. 8.9 fl (6.2-12.0); Monocyte# 0.72 X10^3/uL; NRBC Flagged by Analyzer 0 % (0-5); Neutrophil # 3.82 X10^3/uL (2.7-7.7); Neutrophil % 68.8 % (47-70); Platelet Count 105 K/mm3 (150-450); RBC Distribution Width CV 13.2 % (11.6-14.6); RBC Distribution Width SD 49.1 fl (35.1-43.9); Red Blood Count 3.95 M/mm3 (4.6-6.2); White Blood Count 5.6 K/mm3 (4.4-11.0)
--- NOTE | 2020-03-21 15:54 | NURSING ---
MED SURG OBS KITTOE FREQUENT FALLS, GENERALIZED WEAKNESS
[2020-03-21 16:17] VITALS: BP 129/68; PULSE 85; RESP 18; TEMP 36.5; O2SAT 96
[2020-03-21 16:44] VITALS: BMI 44.1
[2020-03-21 16:50] VITALS: BMI 44.1
[2020-03-21 17:34] VITALS: BP 128/70; PULSE 81; RESP 18; TEMP 36.8; O2SAT 96
--- NOTE | 2020-03-21 17:48 | RAD_ITS ---
STUDY: X-RAY - PELVIS AND LEFT HIP REASON FOR EXAM: Male, 60 years old. Frequent falling. Left leg pain TECHNIQUE: 3 views of the pelvis and left hip. COMPARISON: 03/19/2020 FINDINGS: There is a non-specific bowel gas pattern. Normal visualized soft tissue structures. Normal bilateral iliac wings, sacroiliac joints and visualized sacrum. Normal bilateral superior and inferior pubic rami. Normal pubic symphysis. Normal bilateral ischial tuberosities. Normal visualized femoral head. Normal acetabulum. There is stable mild articular joint space narrowing of the hip. RAD/HIP, UNI W/ Pelvis 2-3 Views IMPRESSION: No fracture dislocation the pelvis or left hip. Stable mild degenerative change. Electronically Signed: Nacho Khan, at 18:49 EDT Tel , Service support ,
[2020-03-21 18:16] LABS: Anion Gap 3 (5-15); BUN 23 mg/dL (7-18); BUN/Creat Ratio 20.9 RATIO (10-20); Calcium,Total 8.9 mg/dL (8.5-10.1); Chloride 109 mmol/L (98-107); EST Glomerular Filtration Rate 73 mL/min (>60); Est Glom Filt Rate - Afr Amer 88 mL/min (>60); Estimated Creatinine Clearance 76.06 ml/min; Glucose 113 mg/dL (74-106); Potassium 3.9 mmol/L (3.5-5.1); Sodium Level 143 mmol/L (136-145)
[2020-03-21] MEDS: Acetaminophen 325 MG Tablet 650 MG PO (18:45)
[2020-03-21 22:13] VITALS: BP 143/66; PULSE 72; RESP 18; TEMP 36.8; O2SAT 95
[2020-03-21] MEDS: Lactulose 20 GM/30 ML UDC PO (22:17)
[2020-03-21] MEDS: BACITRACIN 15 GM Tube 1 APPLIC TOPICAL (22:18)
[2020-03-22] MEDS: Acetaminophen 325 MG Tablet 650 MG PO (02:59)
[2020-03-22] MEDS: 0.9% Saline Lock 10 ML Syringe IV (03:00)
[2020-03-22 03:01] VITALS: BP 141/64; PULSE 71; RESP 18; TEMP 36.3; O2SAT 96
[2020-03-22] MEDS: Lactulose 20 GM/30 ML UDC PO ×3 (05:03→20:49)
[2020-03-22 06:55] LABS: Absolute Lymphocyte Count 1.28 X10^3/uL (0.83-4.51); Absolute Neutrophil Count 2.5 X10^3/uL (2.0-7.7); Basophil# 0.04 X10^3/uL; Basophil% 0.8 % (0-1); Eosinophil# 0.13 X10^3/uL; Eosinophils% 2.8 % (0-5); Hematocrit 38.9 % (40-54); Hemoglobin 12.8 g/dL (13.0-16.5); Lymphocyte # 1.28 X10^3/ul (4.0); Lymphocyte % 27.2 % (19-41); Mean Corp Hgb Conc 32.9 g/dL (32-36); Mean Corpuscular Hgb 33.3 pg (27.0-32.0); Mean Corpuscular Volume 101.3 fL (80-94); Monocyte# 0.76 X10^3/uL; Monocyte% 16.1 % (0-10); NRBC Flagged by Analyzer 0 % (0-5); Neutrophil # 2.49 X10^3/uL (2.7-7.7); Neutrophil % 52.9 % (47-70); Platelet Count 101 K/mm3 (150-450); RBC Distribution Width CV 13.2 % (11.6-14.6); RBC Distribution Width SD 49.1 fl (35.1-43.9); Red Blood Count 3.84 M/mm3 (4.6-6.2); White Blood Count 4.7 K/mm3 (4.4-11.0)
--- NOTE | 2020-03-22 07:11 | PCM.PN.HOSP ---
Patient Problems: Active and Suspected Problems Frequent falls (Acute) Abrasion, left knee, initial encounter (Acute) Contusion of left knee (Acute) Reason for Visit: Recurrent falls Subjective: Patient is 60-year-old gentleman with history of nonalcoholic fatty liver disease who presented with balance issues. Was found to have markedly elevated ammonia level admitted to a monitored bed for further management. Patient did insist on being discharged on 03/21/2020 he presented back to the emergency department with multiple falls after being discharged home. Subsequently admitted to regular nursing floor with consultation placed to PT and OT and clinical social worker to assist with disposition Objective: GENERAL: cooperative HEENT: Atraumatic; EYES; Anicteric, Normal Conjunctiva NECK; supple, normal thyroid, RESPIRATORY: Diminished to auscultation CARDIOVASCULAR: Regular S1 S2, GI: soft, normoactive bowel sounds, : No Renal angle tenderness; EXTREMITIES: No edema, no clubbing, MUSCULOSKELETAL: Left knee tenderness NEURO: Awake; no lateralizing signs. SKIN: No Rash PSYCH; Flat affect Vitals/I&O's: Vital Signs Temp Pulse Resp BP Pulse Ox 97.4 F L 71 18 141/64 H 96 03/22/20 03:01 03/22/20 03:01 03/22/20 03:01 03/22/20 03:01 03/22/20 03:01 Oxygen Delivery Method Room Air Weight: 143.5 kg Body Mass Index (BMI) 44.1 Finger Stick Blood Glucose 93 Intake and Output for Last 24 Hours 03/20/20 03/21/20 03/22/20 23:59 23:59 23:59 Intake Total 350 / 350 Output Total 300 / 300 250 / 250 Balance 50 / 50 -250 / -250 Laboratory Results 03/21/20 14:26: Urine Color Yellow, Urine Clarity Clear, Urine pH 6.0, Ur Specific [place] 1.020, Urine Protein 30 H, Urine Glucose (UA) Normal, Urine Ketones 5 H, Urine Occult Blood 150 H, Urine Nitrite Negative, Urine Bilirubin 1 H, Urine Urobilinogen 8 H, Ur Leukocyte Esterase 25 H, Urine RBC 0-5 SEEN, Urine WBC 0 SEEN, Ur Squamous Epith Cells 0-5 SEEN, Urine Bacteria 0 SEEN, Urine Mucus 0 SEEN 03/21/20 15:05: WBC 5.6, RBC 3.95 L, Hgb 13.4, Hct 39.6 L, MCV 100.3 H, MCH 33.9 H, MCHC 33.8, RDW Std Deviation 49.1 H, RDW Coeff of Reji 13.2, Plt Count 105 L, MPV 8.9, Immature Gran % (Auto) 0.200, Neut % (Auto) 68.8, Lymph % (Auto) 16.4 L, [place] % (Auto) 13.0 H, Eos % (Auto) 1.1, Baso % (Auto) 0.5, Absolute Neuts (auto) 3.8, Absolute Lymphs (auto) 0.91, Nucleated RBC % 0 03/21/20 15:05: Sodium 143, Potassium 3.9, Chloride 109 H, Carbon Dioxide 31.0, Anion Gap 3 L, BUN 23 H, Creatinine 1.10, Estim Creat Clear Calc 76.06, Est GFR (MDRD) Af Amer 88, Est GFR (MDRD) Non-Af 73, BUN/Creatinine Ratio 20.9 H, Glucose 113 H, Calcium 8.9 03/22/20 06:45: Sodium Pending, Potassium Pending, Chloride Pending, Carbon Dioxide Pending, Anion Gap Pending, BUN Pending, Creatinine Pending, Est GFR (MDRD) Af Amer Pending, Est GFR (MDRD) Non-Af Pending, BUN/Creatinine Ratio Pending, Glucose Pending, Calcium Pending 03/22/20 06:45: Ammonia Pending 03/22/20 06:45: WBC 4.7, RBC 3.84 L, Hgb 12.8 L, Hct 38.9 L, MCV 101.3 H, MCH 33.3 H, MCHC 32.9, RDW Std Deviation 49.1 H, RDW Coeff of Reji 13.2, Plt Count 101 L, MPV 9.0, Immature Gran % (Auto) 0.200, Neut % (Auto) 52.9, Lymph % (Auto) 27.2, [place] % (Auto) 16.1 H, Eos % (Auto) 2.8, Baso % (Auto) 0.8, Absolute Neuts (auto) 2.5, Absolute Lymphs (auto) 1.28, Nucleated RBC % 0 Current Medications Acetaminophen (Tylenol) 650 mg PO Q6H PRN PRN PRN Reason: Pain Score 1-10/Temp > 100.7 F Last Admin: 03/22/20 02:59 Dose: 650 mg Documented by: Amlodipine Besylate (Norvasc) 5 mg PO DAILY [facility] Ascorbic Acid (Vitamin C) 1,000 mg PO DAILY [facility] Bacitracin (Bacitracin Ointment) 1 applic TOPICAL BID [facility]; Protocol Last Admin: 03/21/20 22:18 Dose: 1 applicatio Documented by: Dextrose (D50w Syringe) 0 gm IV X1 PRN; Protocol PRN Reason: Hypoglycemia Enoxaparin Sodium (Lovenox) 40 mg SC DAILY [facility] Glucagon () 1 mg IM .X1 PRN PRN Reason: Hypoglycemia Lactulose (Chronulac, Cephulac) 20 gm PO TID [facility] Last Admin: 03/22/20 05:03 Dose: 20 gm Documented by: Lisinopril (Zestril) 40 mg PO DAILY [facility] Ondansetron HCl (Zofran) 4 mg IV Q8H PRN PRN PRN Reason: NAUSEA/VOMITING Oxycodone HCl (Oxyir) 10 mg PO Q4H PRN PRN PRN Reason: Pain Score 4-5/10 Pantoprazole Sodium (Protonix) 20 mg PO DAILY [facility] Sodium Chloride () 10 - 40 ml IV UD PRN PRN Reason: SALINE FLUSH Last Admin: 03/22/20 03:00 Dose: 10 ml Documented by: Spironolactone (Aldactone) 25 mg PO DAILY [facility] Medical Necessity - Tobacco Use Smoking Status: Never smoker Assessment/Plan All Active Problems Frequent falls (Acute) Abrasion, left knee, initial encounter (Acute) Contusion of left knee (Acute) Acute hepatic encephalopathy (Resolved) Aspiration pneumonia (Resolved) Bacteremia (Resolved) Cellulitis (Resolved) Cellulitis of right lower leg (Resolved) Chest pain (Resolved) Cholecystitis (Resolved) Decompensated hepatic cirrhosis (Resolved) Duodenal ulcer (Resolved) Hepatic encephalopathy (Resolved) Hepatic encephalopathy (Resolved) Hyperammonemia (Resolved) Rectal bleed (Resolved) Patient is 60-year-old gentleman with history of nonalcoholic fatty liver disease who presented with balance issues. Was found to have markedly elevated ammonia level admitted to a monitored bed for further management. Patient did insist on being discharged on 03/21/2020 he presented back to the emergency department with multiple falls after being discharged home. Subsequently admitted to regular nursing floor with consultation placed to PT and OT and clinical social worker to assist with disposition 1. Decompensated chronic liver disease ?Patient presented with recurrent falls. Admitted to regular nursing floor consultation placed to OT/PT clinical social worker to assist with discharge planning. Patient was also placed on lactulose dose increased from 20 g twice daily to 20 g 3 times daily 2. Non-alcoholic fatty liver disease ?Patient has end-stage complications including cirrhosis of the liver 3. Anemia - Secondary to chronic disorder monitoring H&H and transfuse if patient becomes symptomatic or hemoglobin falls below 7 4. Hypertension - Blood pressure controlled, home medications continued with dose adjustment as needed 5. Obesity with BMI of 44.1 ?Weight loss advised 6. GERD ?Patient on PPI 7. Osteoarthritis ?Pain control as indicated 8. Dyslipidemia ?Per history managed with diet currently 9. History of bleeding peptic ulcer ?On PPI 10. Obstructive sleep apnea 11. DVT prophylaxis ?Lovenox Active Medications Acetaminophen (Tylenol) 650 mg PO Q6H PRN PRN PRN Reason: Pain Score 1-10/Temp > 100.7 F Last Admin: 03/22/20 02:59 Dose: 650 mg Documented by: Amlodipine Besylate (Norvasc) 5 mg PO DAILY [facility] Ascorbic Acid (Vitamin C) 1,000 mg PO DAILY [facility] Bacitracin (Bacitracin Ointment) 1 applic TOPICAL BID [facility]; Protocol Last Admin: 03/21/20 22:18 Dose: 1 applicatio Documented by: Dextrose (D50w Syringe) 0 gm IV X1 PRN; Protocol PRN Reason: Hypoglycemia Enoxaparin Sodium (Lovenox) 40 mg SC DAILY [facility] Glucagon () 1 mg IM .X1 PRN PRN Reason: Hypoglycemia Lactulose (Chronulac, Cephulac) 20 gm PO TID [facility] Last Admin: 03/22/20 05:03 Dose: 20 gm Documented by: Lisinopril (Zestril) 40 mg PO DAILY [facility] Ondansetron HCl (Zofran) 4 mg IV Q8H PRN PRN PRN Reason: NAUSEA/VOMITING Oxycodone HCl (Oxyir) 10 mg PO Q4H PRN PRN PRN Reason: Pain Score 4-5/10 Pantoprazole Sodium (Protonix) 20 mg PO DAILY [facility] Sodium Chloride () 10 - 40 ml IV UD PRN PRN Reason: SALINE FLUSH Last Admin: 03/22/20 03:00 Dose: 10 ml Documented by: Spironolactone (Aldactone) 25 mg PO DAILY [facility] Inpatient E&M: 96738 Subs Hosp L2
[2020-03-22 07:20] LABS: Anion Gap 3 (5-15); BUN 26 mg/dL (7-18); Calcium,Total 8.9 mg/dL (8.5-10.1); Chloride 109 mmol/L (98-107); EST Glomerular Filtration Rate 81 mL/min (>60); Est Glom Filt Rate - Afr Amer 98 mL/min (>60); Estimated Creatinine Clearance 83.67 ml/min; Glucose 88 mg/dL (74-106); Potassium 3.8 mmol/L (3.5-5.1); Sodium Level 142 mmol/L (136-145)
[2020-03-22 09:00] VITALS: BP 130/68; PULSE 77; RESP 18; TEMP 36.2; O2SAT 95
--- NOTE | 2020-03-22 09:36 | CASEMGMT ---
SW informed by CM that pt came into ED yesterday after falling, and thinks pt needs some time in a rehab prior to returning home. SW met w/pt in room, in regard to discharge plan. Pt confirms fell at home and confirms he and in agreement for SNF for rehab at discharge. SW provided a list of SNFs that take pt's insurance with the star ratings. Pt states would like to go to TCU as first choice, and [facility] as second choice. Pt agreeable to SW calling to double check. SW explained to pt that we will need to see if insurance will authorize. Pt states understanding. SW called pt's , spoke w/her on the phone. SW confirmed information in prior assessment from 03/20/20 to still be accurate, please refer to that assessment for further details. confirmed wants pt to go to SNF, agreeable to TCU as first choice. does not want pt going anywhere that has COVID patients. SW explained that all patients going to TCU need to be tested and that they are not taking any COVID positive patients. states pt actually fell three times once he got home. She states pt needs to be walking well in order to go home. SW explained that we will make the referral and if TCU can take pt they will go to [facility] for precert. SW explained it's not definite that [employer] will authorize, but we will see. SW explained pt will be here until Tuesday so we can go to insurance Tuesday to see if they will authorize. states understanding. ELEANOR called Dai in TCU, message left w/pt's name and asked her to follow up w/SW Tuesday. SW will follow up Tuesday. JAIRO Davey
[2020-03-22] MEDS: BACITRACIN 15 GM Tube 1 APPLIC TOPICAL ×2 (10:47→20:50)
[2020-03-22] MEDS: Ascorbic Acid 500 MG Tablet 1000 MG PO (10:47)
[2020-03-22] MEDS: Spironolactone 25 MG Tablet PO (10:47)
[2020-03-22] MEDS: Lisinopril 40 MG Tablet PO (10:48)
[2020-03-22] MEDS: Enoxaparin 40 MG/0.4 ML Syringe SC (10:48)
[2020-03-22] MEDS: Pantoprazole Sodium 20 MG Tablet PO (10:48)
[2020-03-22] MEDS: amLODIPine 5 MG Tablet PO (10:49)
--- NOTE | 2020-03-22 14:26 | CASEMGMT ---
RN CM NOTE: SHANNON form reviewed w/pt. Pt denies having any questions. SHANNON form signed by pt, copy made and placed on chart and original given to pt. Pt made aware if any questions/concerns arise, to ask for CM. Saumya FIGUEROA RN CM
[2020-03-22] MEDS: oxyCODONE 5 MG Tablet 10 MG PO (16:10)
[2020-03-22 16:15] VITALS: BP 120/47; PULSE 69; RESP 18; TEMP 37; O2SAT 96
[2020-03-22 20:45] VITALS: BP 128/69; PULSE 71; RESP 18; TEMP 36.6; O2SAT 95
[2020-03-23 02:40] VITALS: BP 138/69; PULSE 75; RESP 16; TEMP 36.9; O2SAT 94
[2020-03-23] MEDS: 0.9% Saline Lock 10 ML Syringe IV (05:46)
[2020-03-23] MEDS: Lactulose 20 GM/30 ML UDC PO ×3 (05:46→21:47)
[2020-03-23] MEDS: Acetaminophen 325 MG Tablet 650 MG PO ×2 (06:14→20:18)
--- NOTE | 2020-03-23 07:22 | PCM.PN.HOSP ---
Patient Problems: Active and Suspected Problems Frequent falls (Acute) Abrasion, left knee, initial encounter (Acute) Contusion of left knee (Acute) Reason for Visit: Recurrent falls, physical deconditioning, decompensated cirrhosis of the liver Subjective: Patient was readmitted with recurrent falls. Currently being managed on a regular nursing floor. Requested for PT OT eval. Patient was also started on pain medication due to significant pain in the left knee. Objective: GENERAL: cooperative HEENT: Atraumatic; EYES; Anicteric, Normal Conjunctiva NECK; supple, normal thyroid, RESPIRATORY: Diminished to auscultation CARDIOVASCULAR: Regular S1 S2, GI: soft, normoactive bowel sounds, : No Renal angle tenderness; EXTREMITIES: No edema, no clubbing, MUSCULOSKELETAL: Left knee tenderness NEURO: Awake; no lateralizing signs. SKIN: No Rash PSYCH; Flat affect Vitals/I&O's: Vital Signs Temp Pulse Resp BP Pulse Ox 98.5 F 75 16 138/69 H 94 03/23/20 02:40 03/23/20 02:40 03/23/20 02:40 03/23/20 02:40 03/23/20 02:40 Oxygen Delivery Method Room Air Weight: 143.5 kg Body Mass Index (BMI) 44.1 Finger Stick Blood Glucose 93 Intake and Output for Last 24 Hours 03/21/20 03/22/20 03/23/20 23:59 23:59 23:59 Intake Total 350 / 350 1500 / 1700 450 / 450 Output Total 300 / 300 550 / 700 350 / 350 Balance 50 / 50 950 / 1000 100 / 100 Laboratory Results 03/22/20 11:25: COVID-19 ([facility]) Pending Current Medications Acetaminophen (Tylenol) 650 mg PO Q6H PRN PRN PRN Reason: Pain Score 1-10/Temp > 100.7 F Last Admin: 03/23/20 06:14 Dose: 650 mg Documented by: Amlodipine Besylate (Norvasc) 5 mg PO DAILY [facility] Last Admin: 03/22/20 10:49 Dose: 5 mg Documented by: Ascorbic Acid (Vitamin C) 1,000 mg PO DAILY [facility] Last Admin: 03/22/20 10:47 Dose: 1,000 mg Documented by: Bacitracin (Bacitracin Ointment) 1 applic TOPICAL BID [facility]; Protocol Last Admin: 03/22/20 20:50 Dose: 1 applicatio Documented by: Dextrose (D50w Syringe) 0 gm IV X1 PRN; Protocol PRN Reason: Hypoglycemia Enoxaparin Sodium (Lovenox) 40 mg SC DAILY [facility] Last Admin: 03/22/20 10:48 Dose: 40 mg Documented by: Glucagon () 1 mg IM .X1 PRN PRN Reason: Hypoglycemia Lactulose (Chronulac, Cephulac) 20 gm PO TID [facility] Last Admin: 03/23/20 05:46 Dose: 20 gm Documented by: Lisinopril (Zestril) 40 mg PO DAILY [facility] Last Admin: 03/22/20 10:48 Dose: 40 mg Documented by: Ondansetron HCl (Zofran) 4 mg IV Q8H PRN PRN PRN Reason: NAUSEA/VOMITING Oxycodone HCl (Oxyir) 10 mg PO Q4H PRN PRN PRN Reason: Pain Score 4-5/10 Last Admin: 03/22/20 16:10 Dose: 10 mg Documented by: Pantoprazole Sodium (Protonix) 20 mg PO DAILY [facility] Last Admin: 03/22/20 10:48 Dose: 20 mg Documented by: Sodium Chloride () 10 - 40 ml IV UD PRN PRN Reason: SALINE FLUSH Last Admin: 03/23/20 05:46 Dose: 10 ml Documented by: Spironolactone (Aldactone) 25 mg PO DAILY [facility] Last Admin: 03/22/20 10:47 Dose: 25 mg Documented by: Medical Necessity - Tobacco Use Smoking Status: Never smoker Assessment/Plan All Active Problems Frequent falls (Acute) Abrasion, left knee, initial encounter (Acute) Contusion of left knee (Acute) Acute hepatic encephalopathy (Resolved) Aspiration pneumonia (Resolved) Bacteremia (Resolved) Cellulitis (Resolved) Cellulitis of right lower leg (Resolved) Chest pain (Resolved) Cholecystitis (Resolved) Decompensated hepatic cirrhosis (Resolved) Duodenal ulcer (Resolved) Hepatic encephalopathy (Resolved) Hepatic encephalopathy (Resolved) Hyperammonemia (Resolved) Rectal bleed (Resolved) Patient is 60-year-old gentleman with history of nonalcoholic fatty liver disease who presented with balance issues. Was found to have markedly elevated ammonia level admitted to a monitored bed for further management. Patient did insist on being discharged on 03/21/2020 he presented back to the emergency department with multiple falls after being discharged home. Subsequently admitted to regular nursing floor with consultation placed to PT and OT and social organization professor to assist with disposition 1. Decompensated chronic liver disease ?Patient presented with recurrent falls. Admitted to regular nursing floor consultation placed to OT/PT social organization professor to assist with discharge planning. Patient was also placed on lactulose dose increased from 20 g twice daily to 20 g 3 times daily -03/23/2020 ammonia level has been fluctuating patient level of sensorium however is at baseline 2. Non-alcoholic fatty liver disease ?Patient has end-stage complications including cirrhosis of the liver 3. Anemia - Secondary to chronic disorder monitoring H&H and transfuse if patient becomes symptomatic or hemoglobin falls below 7 4. Hypertension - Blood pressure controlled, home medications continued with dose adjustment as needed 5. Obesity with BMI of 44.1 ?Weight loss advised 6. GERD ?Patient on PPI 7. Osteoarthritis ?Pain control as indicated 8. Dyslipidemia ?Per history managed with diet currently 9. History of bleeding peptic ulcer ?On PPI 10. Obstructive sleep apnea 11. DVT prophylaxis ?Lovenox Inpatient E&M: 39351 Subs Hosp L2
[2020-03-23 08:07] LABS: Hematocrit 40.8 % (40-54); Hemoglobin 12.4 g/dL (13.0-16.5); Mean Corp Hgb Conc 30.4 g/dL (32-36); Mean Corpuscular Hgb 33.3 pg (27.0-32.0); Mean Corpuscular Volume 109.7 fL (80-94); Mean Platelet Vol. 8.9 fl (6.2-12.0); Platelet Count 113 K/mm3 (150-450); RBC Distribution Width CV 13.3 % (11.6-14.6); RBC Distribution Width SD 53.1 fl (35.1-43.9); Red Blood Count 3.72 M/mm3 (4.6-6.2); White Blood Count 4.3 K/mm3 (4.4-11.0)
[2020-03-23 08:40] VITALS: BP 121/60; PULSE 68; RESP 16; TEMP 36.7; O2SAT 97
[2020-03-23 08:41] LABS: ALB/GLOB Ratio 0.5 RATIO (0.9-2.4); AST(SGOT) 52 U/L (15-37); Alanine Aminotransfer ALT/SGPT 17 U/L (16-61); Albumin, Serum 1.9 g/dL (3.2-5.0); Alkaline Phosphatase 83 U/L (45-117); Anion Gap 6 (5-15); BUN 26 mg/dL (7-18); BUN/Creat Ratio 27.1 RATIO (10-20); Calcium,Total 8.2 mg/dL (8.5-10.1); Chloride 111 mmol/L (98-107); Creatinine, Serum 0.96 mg/dL (0.70-1.30); EST Glomerular Filtration Rate 85 mL/min (>60); Est Glom Filt Rate - Afr Amer 103 mL/min (>60); Estimated Creatinine Clearance 87.15 ml/min; Glucose 95 mg/dL (74-106); Protein, Total 5.9 g/dL (6.4-8.2); Sodium Level 140 mmol/L (136-145)
[2020-03-23] MEDS: Ascorbic Acid 500 MG Tablet 1000 MG PO (10:35)
[2020-03-23] MEDS: Lisinopril 40 MG Tablet PO (10:35)
[2020-03-23] MEDS: amLODIPine 5 MG Tablet PO (10:35)
[2020-03-23] MEDS: Enoxaparin 40 MG/0.4 ML Syringe SC (10:35)
[2020-03-23] MEDS: Pantoprazole Sodium 20 MG Tablet PO (10:35)
[2020-03-23] MEDS: BACITRACIN 15 GM Tube 1 APPLIC TOPICAL ×2 (10:37→21:47)
[2020-03-23] MEDS: Spironolactone 25 MG Tablet PO (10:37)
[2020-03-23 14:14] VITALS: BP 112/55; PULSE 67; RESP 18; TEMP 37.1; O2SAT 98
[2020-03-23 22:20] VITALS: BP 109/48; PULSE 82; RESP 16; TEMP 36.8; O2SAT 92
[2020-03-24 04:20] VITALS: BP 143/65; PULSE 76; RESP 18; TEMP 36.6; O2SAT 92
[2020-03-24 05:48] LABS: Hematocrit 38.1 % (40-54); Hemoglobin 12.6 g/dL (13.0-16.5); Mean Corp Hgb Conc 33.1 g/dL (32-36); Mean Corpuscular Hgb 33.2 pg (27.0-32.0); Mean Corpuscular Volume 100.3 fL (80-94); Mean Platelet Vol. 8.8 fl (6.2-12.0); Platelet Count 114 K/mm3 (150-450); RBC Distribution Width CV 12.9 % (11.6-14.6); RBC Distribution Width SD 47.5 fl (35.1-43.9)
[2020-03-24] MEDS: Lactulose 20 GM/30 ML UDC PO ×2 (06:08→13:08)
[2020-03-24 06:16] LABS: ALB/GLOB Ratio 0.6 RATIO (0.9-2.4); AST(SGOT) 75 U/L (15-37); Alanine Aminotransfer ALT/SGPT 26 U/L (16-61); Albumin, Serum 2.4 g/dL (3.2-5.0); Alkaline Phosphatase 86 U/L (45-117); Anion Gap 5 (5-15); BUN 29 mg/dL (7-18); BUN/Creat Ratio 28.2 RATIO (10-20); Calcium,Total 8.5 mg/dL (8.5-10.1); Chloride 108 mmol/L (98-107); Creatinine, Serum 1.03 mg/dL (0.70-1.30); EST Glomerular Filtration Rate 78 mL/min (>60); Est Glom Filt Rate - Afr Amer 95 mL/min (>60); Estimated Creatinine Clearance 81.23 ml/min; Globulin 4.1 g/dL (2.2-4.2); Glucose 85 mg/dL (74-106); Magnesium 2.2 mg/dL (1.6-2.6); Potassium 4.9 mmol/L (3.5-5.1); Protein, Total 6.5 g/dL (6.4-8.2); Sodium Level 142 mmol/L (136-145)
--- NOTE | 2020-03-24 08:55 | NURSING ---
wound photo: left amaya
--- NOTE | 2020-03-24 08:56 | NURSING ---
wound photo: right lower leg
--- NOTE | 2020-03-24 09:11 | CASEMGMT ---
Addendum entered by Shanthi Elias 03/24/20 10:05: Pt's Marielle at main entrance requesting to speak to SW. SW meet with Marielle and introduced self and role at [facility]. ELEANOR updated Marielle that TCU is able to accept pt pending pre-cert. Marielle states that if pt gets denied TCU she would like pt to go to [facility] ([place] ELEANOR updated pt that if TCU gets denied by insurance than insurance will deny every SNF. ELEANOR updated Marielle that once this worker hears from insurance, this worker will give her a call. Marielle states understanding. Original Note: Social Work Note SW received message from Dai in TCU stating she is able to accept pt and will submit for pre-cert. Plan: TCU pending pre-cert Shanthi Elias WIRE COILER MACHINE OPERATOR, AIR CARGO GROUND CREW SUPERVISOR
[2020-03-24] MEDS: BACITRACIN 15 GM Tube 1 APPLIC TOPICAL ×2 (09:20→22:16)
[2020-03-24] MEDS: amLODIPine 5 MG Tablet PO (09:23)
[2020-03-24] MEDS: Spironolactone 25 MG Tablet PO (09:23)
[2020-03-24] MEDS: Lisinopril 40 MG Tablet PO (09:23)
[2020-03-24] MEDS: Ascorbic Acid 500 MG Tablet 1000 MG PO (09:24)
[2020-03-24] MEDS: Pantoprazole Sodium 20 MG Tablet PO (09:26)
[2020-03-24] MEDS: Acetaminophen 325 MG Tablet 650 MG PO ×2 (09:32→19:42)
[2020-03-24 10:20] VITALS: BP 126/56; PULSE 75; RESP 16; TEMP 36.7; O2SAT 95
--- NOTE | 2020-03-24 14:52 | CASEMGMT ---
Addendum entered by Shanthi Elias 03/24/20 15:59: ELEANOR updated membership secretary and charge nurse that pt is able to discharge to TCU today once discharge is in. Addendum entered by Shanthi Elias 03/24/20 15:16: ELEANOR placed a call to pt's Marielle and updated her on approval to TCU and likely discharge today. SW in to update pt. SW introduced self and role at [facility]. Pt is alert and orientated x3. ELEANOR updated pt that he has been approved to TCU and will likely discharge today. ELEANOR updated pt that his has also been updated. RN updated. Original Note: Social Work Note ELEANOR received call from Dai in TCU stating pre-cert has been obtained, pt is able to discharge to TCU today. ELEANOR updated physician. Plan: TCU when medically cleared Shanthi Elias MSW, DATA COMMUNICATIONS ANALYST
[2020-03-24 16:20] VITALS: BP 128/51; PULSE 78; RESP 16; TEMP 36.4; O2SAT 95
--- NOTE | 2020-03-24 18:19 | PCM.PROGNOTE ---
Patient Problems: Active and Suspected Problems Frequent falls (Acute) Abrasion, left knee, initial encounter (Acute) Contusion of left knee (Acute) Subjective: Patient was seen and examined today, he is alert but appears to have mild confusion today, his ammonia level today was 101, we received approval for the patient to go to TCU today but I feel due to his elevated ammonia level, he will need to be reevaluated in the morning for discharge to there. I have increased the patient's lactulose, I will order another serum ammonia level in the morning on the patient. - Physical Exam Vitals/I&O's: Vital Signs Temp Pulse Resp BP Pulse Ox 97.6 F L 78 16 128/51 H 95 03/24/20 16:20 03/24/20 16:20 03/24/20 16:20 03/24/20 16:20 03/24/20 16:20 Oxygen Delivery Method Room Air Weight: 143.5 kg Body Mass Index (BMI) 44.1 Finger Stick Blood Glucose 93 Intake and Output for Last 24 Hours 03/22/20 03/23/20 03/24/20 23:59 23:59 23:59 Intake Total 1500 / 1700 1200 / 1200 300 / 300 Output Total 550 / 700 800 / 800 400 / 400 Balance 950 / 1000 400 / 400 -100 / -100 General: Alert, Cooperative, No apparent distress, Well developed, Well nourished HEENT: Atraumatic, PERRLA, EOMI, Normocephalic Oral: Moist Mucosa Neck: Supple, No JVD, Trachea Midline, Thyroid Normal Size and Texture Lungs: Clear to auscultation, Normal air movement, No rhonchi, No wheeze, No rales Cardiovascular: Regular rate, Regular Rhythm, Normal S1, Normal S2, No murmurs, PMI Normal Abdomen: Bowel Sounds Present, Soft, Non Tender, Non-Distended, Obese, No hernias noted Extremities: No clubbing, No cyanosis, No edema, Capillary Refill Less than 3 Seconds Skin: No rashes, No breakdown Musculoskeletal: No Tenderness to Palpation of Joints or Extremities Neurological: Cranial nerves II-XII grossly intact, Neuro grossly intact, Sensory exam intact to light touch and pain Psych/Mental Status: Flat Affect, - - Patient exhibits some confusion Microbiology Past 72 Hours 03/21/20 21:15 Urine, Clean Catch Urine Culture - Final Mixed Gram Positive Organisms Laboratory Results 03/22/20 11:25: COVID-19 ([facility]) Not Detected 03/24/20 05:30: WBC 4.0 L, RBC 3.80 L, Hgb 12.6 L, Hct 38.1 L, MCV 100.3 H D, MCH 33.2 H, MCHC 33.1 D, RDW Std Deviation 47.5 H, RDW Coeff of Reji 12.9, Plt Count 114 L, MPV 8.8 03/24/20 05:30: Sodium 142, Potassium 4.9, Chloride 108 H, Carbon Dioxide 29.0, Anion Gap 5, BUN 29 H, Creatinine 1.03, Estim Creat Clear Calc 81.23, Est GFR (MDRD) Af Amer 95, Est GFR (MDRD) Non-Af 78, BUN/Creatinine Ratio 28.2 H, Glucose 85, Calcium 8.5, Magnesium 2.2, Total Bilirubin 1.00, AST 75 H, ALT 26, Alkaline Phosphatase 86, Total Protein 6.5, Albumin 2.4 L, Globulin 4.1, Albumin/Globulin Ratio 0.6 L 03/24/20 05:30: Ammonia 101.0 H Current Medications Acetaminophen (Tylenol) 650 mg PO Q6H PRN PRN PRN Reason: Pain Score 1-10/Temp > 100.7 F Last Admin: 03/24/20 09:32 Dose: 650 mg Documented by: Amlodipine Besylate (Norvasc) 5 mg PO DAILY [facility] Last Admin: 03/24/20 09:23 Dose: 5 mg Documented by: Ascorbic Acid (Vitamin C) 1,000 mg PO DAILY [facility] Last Admin: 03/24/20 09:24 Dose: 1,000 mg Documented by: Bacitracin (Bacitracin Ointment) 1 applic TOPICAL BID [facility]; Protocol Last Admin: 03/24/20 09:20 Dose: 1 applicatio Documented by: Dextrose (D50w Syringe) 0 gm IV X1 PRN; Protocol PRN Reason: Hypoglycemia Enoxaparin Sodium (Lovenox) 40 mg SC DAILY [facility] Last Admin: 03/24/20 09:22 Dose: Not Given Documented by: Glucagon () 1 mg IM .X1 PRN PRN Reason: Hypoglycemia Lactulose (Chronulac, Cephulac) 30 gm PO TID [facility] Lisinopril (Zestril) 40 mg PO DAILY [facility] Last Admin: 03/24/20 09:23 Dose: 40 mg Documented by: Ondansetron HCl (Zofran) 4 mg IV Q8H PRN PRN PRN Reason: NAUSEA/VOMITING Oxycodone HCl (Oxyir) 10 mg PO Q4H PRN PRN PRN Reason: Pain Score 4-5/10 Last Admin: 03/22/20 16:10 Dose: 10 mg Documented by: Pantoprazole Sodium (Protonix) 20 mg PO DAILY [facility] Last Admin: 03/24/20 09:26 Dose: 20 mg Documented by: Sodium Chloride () 10 - 40 ml IV UD PRN PRN Reason: SALINE FLUSH Last Admin: 03/23/20 05:46 Dose: 10 ml Documented by: Spironolactone (Aldactone) 25 mg PO DAILY [facility] Last Admin: 03/24/20 09:23 Dose: 25 mg Documented by: Medical Necessity - Tobacco Use Smoking Status: Never smoker Assessment/Plan All Active Problems Frequent falls (Acute) Abrasion, left knee, initial encounter (Acute) Contusion of left knee (Acute) Acute hepatic encephalopathy (Resolved) Aspiration pneumonia (Resolved) Bacteremia (Resolved) Cellulitis (Resolved) Cellulitis of right lower leg (Resolved) Chest pain (Resolved) Cholecystitis (Resolved) Decompensated hepatic cirrhosis (Resolved) Duodenal ulcer (Resolved) Hepatic encephalopathy (Resolved) Hepatic encephalopathy (Resolved) Hyperammonemia (Resolved) Rectal bleed (Resolved) #1 encephalopathy secondary to chronic liver disease-again patient's lactulose was increased today #2 nonalcoholic fatty liver disease #3 essential hypertension #4 class III obesity #5 generalized debility secondary to multiple medical problems including nonalcoholic fatty liver disease with encephalopathy-continue PT and OT, patient will need short-term placement in a snf facility #6 secondary to chronic nonalcoholic fatty liver disease-no treatment necessary at this time Inpatient E&M: 46891 [facility] Hosp L2
[2020-03-24] MEDS: Lactulose 20 GM/30 ML UDC 30 GM PO (22:15)
[2020-03-24 22:20] VITALS: BP 156/56; PULSE 76; RESP 18; TEMP 36.7; O2SAT 96
[2020-03-25] MEDS: MELATONIN 10 MG TABLET 5 MG PO (01:43)
[2020-03-25 04:20] VITALS: BP 144/72; PULSE 75; RESP 18; TEMP 36.8; O2SAT 95
[2020-03-25] MEDS: Lactulose 20 GM/30 ML UDC 30 GM PO (04:52)
[2020-03-25] MEDS: 0.9% Saline Lock 10 ML Syringe IV (04:53)
[2020-03-25 10:20] VITALS: BP 141/60; PULSE 74; RESP 18; TEMP 36.4; O2SAT 97
--- NOTE | 2020-03-25 10:32 | PCM.TXEXTCAR ---
- Diet 03/21/20 16:53 Diet: Cardiac/Low Cholesterol Food consistency:: Regular Liquid Consistency:: Regular/Thin No added salt - Routine Orders/Code Status Code Status: Full Code - Wound(s) right knee Wound Type: Abrasion Dressing Change: Adaptic right anterior lower leg Wound Type: Abrasion Dressing Change: Adaptic left anterior lower leg Wound Type: Abrasion Dressing Change: Adaptic - Therapies Weight Bearing: Full weight bearing Physical Therapy: Eval and Treat Occupational Therapy: Eval and Treat - Problem/Diagnosis (1) Fatty liver with encephalopathy Status: Acute Current Visit: Yes (2) Frequent falls Status: Acute Current Visit: Yes (3) BOOTHE (nonalcoholic steatohepatitis) Status: Chronic Current Visit: Yes (4) Increased ammonia level Status: Acute Current Visit: No (5) HTN (hypertension) Status: Chronic Current Visit: Yes - Allergies/Procedures Done in Hospital Allergies/Adverse Reactions: Allergies aspirin Adverse Reaction (Verified 03/19/20 19:13) Upset Stomach Procedures: None - Type of Care/Length of Stay Estimated LOS: Convalescent Care Less Than 30 days Type of Care Needed: Skilled Rehab Potential: Good Prognosis: Good - Additional Orders/Day of Discharge H&P will serve as current which was dated: 03/21/20 Day of Discharge: 03/25/20 - Follow Up Care Primary Care Physician: Pedro Pablo Broussard III, MD [Primary Care Provider] -
[2020-03-25] MEDS: BACITRACIN 15 GM Tube 1 APPLIC TOPICAL (10:47)
[2020-03-25] MEDS: Pantoprazole Sodium 20 MG Tablet PO (10:48)
[2020-03-25] MEDS: Enoxaparin 40 MG/0.4 ML Syringe SC (10:48)
[2020-03-25] MEDS: Lisinopril 40 MG Tablet PO (10:48)
[2020-03-25] MEDS: Ascorbic Acid 500 MG Tablet 1000 MG PO (10:48)
[2020-03-25] MEDS: amLODIPine 5 MG Tablet PO (10:48)
[2020-03-25] MEDS: Spironolactone 25 MG Tablet PO (10:50)
--- NOTE | 2020-03-25 11:45 | CASEMGMT ---
Social Work Note Pt is discharging today to TCU. ELEANOR placed a call to Dai in TCU and left message that pt will be discharged today. ELEANOR placed a call to pt's Marielle and updated her that pt will be discharged today. SW updated pt. RN updated. Transfer to extended care facility and signed medication list are in SNF folder and copy on pt's chart. Plan: TCU today Shanthi Elias SIMULATION EDUCATOR, CIGAR BANDER HAND
--- NOTE | 2020-03-25 20:01 | DS.PCM_ITS ---
Discharge Date and Diagnosis Date of Admission: 03/21/20 Date of Discharge: 03/25/20 - Primary Discharge Diagnosis Acute Problems: #1 encephalopathy secondary to chronic liver disease #2 nonalcoholic fatty liver disease with cirrhosis #3 essential hypertension #4 class III obesity #5 generalized debility secondary to multiple medical problems #6 obstructive sleep apnea #7 hyperlipidemia - Secondary Discharge Diagnosis Chronic Problems: Chronic Problems BOOTHE (nonalcoholic steatohepatitis) (Chronic) HLD (hyperlipidemia) (Chronic) Stasis dermatitis (Chronic) Morbid obesity with body mass index of 45.0-49.9 in adult (Chronic) GERD (gastroesophageal reflux disease) (Chronic) SANTHOSH (obstructive sleep apnea) (Chronic) TIA (transient ischemic attack) (Chronic) 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 Work-up in the emergency room included a CBC which was unremarkable, urinalysis was unremarkable. Patient was placed in observation status on MedSurg 3, serum ammonia level was obtained which was slightly elevated, patient was seen by PT and OT and arrangements were made for the patient to go to an extended care facility for short-term rehab. Unfortunately patient's serum ammonia level elevated and medications had to be adjusted. On 03/25/2020, patient was seen and examined: On examination he appeared in good health and spirits. Vital signs as documented. Skin warm and dry and without ov ert rashes. Neck without JVD, neck was supple, trachea midline, thyroid was normal. Lungs clear bilaterally, normal air movement was noted. Heart exam notable for regular rhythm, normal sounds and absence of murmurs, rubs or gallops. Abdomen unremarkable and without evidence of organomegaly, masses, or abdominal aortic enlargement. Patient is morbidly obese. Bowel sounds are present, abdomen is not distended. Extremities nonedematous, no cyanosis was noted, no clubbing was noted. Neuro: Cranial nerves II through XII are grossly intact, no focal motor deficits were noted, sensation to light touch and pinprick intact, motor exam 5/5 throughout. Psych: Patient is alert and oriented x3, he does not appear anxious or depressed, he does not appear agitated. Patient was discharged to a senior care facility in stable condition on 03/25/2020. - Physical Exam Vitals/I&O's: Vital Signs Temp Pulse Resp BP Pulse Ox 97.5 F L 74 18 141/60 H 97 03/25/20 10:20 03/25/20 10:20 03/25/20 10:20 03/25/20 10:20 03/25/20 10:20 Oxygen Delivery Method Room Air Weight: 143.5 kg Body Mass Index (BMI) 44.1 Finger Stick Blood Glucose 93 Intake and Output for Last 24 Hours 03/23/20 03/24/20 03/25/20 23:59 23:59 23:59 Intake Total 1200 / 1200 600 / 600 300 / 300 Output Total 800 / 800 625 / 625 700 / 700 Balance 400 / 400 -25 / -25 -400 / -400 Microbiology Past 72 Hours 03/21/20 21:15 Urine, Clean Catch Urine Culture - Final Mixed Gram Positive Organisms Laboratory Results 03/25/20 09:34: Ammonia 42.0 H Home Medications: Medications to take at Discharge Lisinopril [Zestril] 40 mg PO DAILY 12/24/15 Omeprazole [Prilosec] 20 mg PO DAILY 12/26/19 Amlodipine [Norvasc] 5 mg PO DAILY 12/27/19 Acetaminophen [Tylenol Tablet] 650 mg PO Q6H PRN PRN tab 03/25/20 Ascorbic Acid [Vitamin C] 1,000 mg PO DAILY 03/25/20 Lactulose [Chronulac] 30 gm PO TID 03/25/20 Spironolactone [Aldactone] 25 mg PO DAILY 03/25/20 Primary Care Physician: Pedro Pablo Broussard III, MD [Primary Care Provider] - Disposition: Prison facility Minutes spent on discharge:: 31 Patient Condition:: Stable Medical Necessity - Tobacco Use Smoking Status: Never smoker Meaningful Use Info Meaningful Use Diagnoses (Choose all that apply): None applicable OBSV E&M: 62340 Observation care discharge
== END 2020-03-25 13:00 ==
LOC: ED 15:19 → MS3 16:18
PROVIDERS: Nurse Practitioner Family; Admitting Provider Internal Medicine; Emergency Provider Physician Assistant Medical; PCP Family Medicine; Visit Provider Internal Medicine
DX: K72.00 Acute and subacute hepatic failure without coma (principal); K76.0 Fatty (change of) liver, not elsewhere classified; K74.60 Unspecified cirrhosis of liver; R29.6 Repeated falls; I10 Essential (primary) hypertension; D53.9 Nutritional anemia, unspecified; S80.212A Abrasion, left knee, initial encounter; W18.30XA Fall on same level, unspecified, initial encounter; Y93.9 Activity, unspecified; G47.33 Obstructive sleep apnea (adult) (pediatric); E78.5 Hyperlipidemia, unspecified; M19.90 Unspecified osteoarthritis, unspecified site; K21.9 Gastro-esophageal reflux disease without esophagitis; E66.01 Morbid (severe) obesity due to excess calories; I69.322 Dysarthria following cerebral infarction; Z68.41 Body mass index [BMI] 40.0-44.9, adult; Z79.899 Other long term (current) drug therapy
CPT/HCPCS: 36415; 73502; 73564; 80048; 80053; 81001; 82140; 83735; 85025; 85027; 87086; 87088; 87635; 96372; 97110; 97116; 97162; 97166; 97530; 99218; 99285; G2023; A4216; G0378; U0003

== ENCOUNTER 2020-03-25 13:15 | Inpatient (IN) | payer MEDICARE, SELFPAY ==
[2020-03-25 13:30] VITALS: BP 145/62; PULSE 82; RESP 16; TEMP 36.8; O2SAT 96; BMI 43.5
[2020-03-25] MEDS: Lactulose 20 GM/30 ML UDC 30 GM PO ×2 (15:18→20:59)
[2020-03-25] MEDS: Acetaminophen 325 MG Tablet 650 MG PO (18:53)
[2020-03-25] MEDS: Menthol/Lanolin/Calamine/Znox 113 GM Tube 1 APPLIC TOPICAL (21:01)
[2020-03-25] MEDS: Nystatin Powder 15gm Bottle 1 APPLIC TOPICAL (21:01)
--- NOTE | 2020-03-25 21:01 | PCM.HP.STD ---
Problem List (1) Debility Status: Acute (2) Stroke Status: Chronic (3) Dysarthria Status: Chronic (4) Body mass index (BMI) 40.0-44.9, adult Status: Chronic (5) Cirrhosis of liver Status: Chronic (6) Hepatic encephalopathy Status: Acute (7) Sleep apnea Status: Chronic (8) Duodenal ulcer Status: Chronic (9) Hyperammonemia Status: Acute (10) Frequent falls Status: Acute (11) BOOTHE (nonalcoholic steatohepatitis) Status: Chronic (12) HLD (hyperlipidemia) Status: Chronic Qualifiers: (13) GERD (gastroesophageal reflux disease) Status: Chronic Qualifiers: (14) HTN (hypertension) Status: Chronic Qualifiers: History of Present Illness Date of Admission: 03/25/20 Chief Complaint: Here for rehabilitation, strengthening, prior to discharge home with family. 03/21/2020 The patient is a 60 year old Male with below past medical history presented to [facility] Emergency Department with fall. 03/21/2020 X-ray left knee status post total knee arthroplasty, soft tissue swelling, small joint effusion, suggestive of myositis ossificans. Fell at home, usually walks with walker. Multiple falls, fell 4x in 1 day. feels patient needs rehab or temporary placement. Left knee pain, UA negative. 03/21/2020 Admit to Hospital. X-ray left hip for left hip pain. PT/OT for alf facility. 03/21/2020 X-ray pelvis, left hip negative fracture, dislocation. Stable mild arthritis. 03/22/2020 Lactulose 20GM TID for decompensated liver cirrhosis. Transfuse if hemoglobin < 7.0. 03/23/2020 Ammonia level fluctuating, sensorium baseline. 03/24/2020 Ammonia level 101 with mild confusion. Lactulose increased. PT/OT for alf facility. 03/25/2020 Admit to TCU with debility, here for rehabilitation, strengthening, prior to discharge home with family. 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) old stroke not visible on MRI- [facility] neurology opinion History of peptic ulcer (Chronic) Osteoarthritis (Chronic) HTN (hypertension) (Chronic) Allergies aspirin Adverse Reaction (Verified 03/19/20 19:13) Upset Stomach Home Medications: Ambulatory Orders Medication Instructions Recorded Lisinopril [Zestril] 40 mg PO DAILY 12/24/15 Omeprazole [Prilosec] 20 mg PO DAILY 12/26/19 Amlodipine [Norvasc] 5 mg PO DAILY 12/27/19 Acetaminophen [Tylenol Tablet] 650 mg PO Q6H PRN PRN tab 03/25/20 Ascorbic Acid [Vitamin C] 1,000 mg PO DAILY 03/25/20 Lactulose [Chronulac] 30 gm PO TID 03/25/20 Spironolactone [Aldactone] 25 mg PO DAILY 03/25/20 Surgical History: cholecystectomy, total knee arthroplasty - Bilateral., tonsillectomy, - - Liver biopsy. Psychiatric History: No pertinent psych hx Lives: With Family Smoking Status: Never smoker Tobacco Use: Non-smoker Alcohol: None Drugs: None - *Family History Maternal History Items: Cancer Paternal History Items: Diabetes, Dementia Review of Systems Constitutional: Denies: Chills, Fever, Weight Change HEENT: Denies: Head Aches, Sinus Congestion, Sinus Drainage Cardiovascular: Denies: Chest Pain, Palpitations Respiratory: Denies: Cough, Shortness of breath at rest, Sputum production Gastrointestinal: Denies: Abdominal Pain, Nausea, Vomiting Genitourinary: Denies: Dysuria Musculoskeletal: Denies: Joint Pain, Joint Tenderness Skin: Denies: Rash, Wounds Neurological: Denies: Numbness, Tingling, Focal weakness Psychiatric: Denies: Anxiety, Depression, Homicidal Ideations, Suicidal Ideations Hematologic/ Lymphatic: Denies: Easy Bruising, Easy Bleeding VTE Information - Inpt Only VTE Present on Admission: No VTE Mechan Device Prophylaxis: Knee High GLADIS Hose VTE Pharm Prophylaxis ordered?: Yes Patient Problems: Active and Suspected Problems Debility (Acute) Hepatic encephalopathy (Acute) Hyperammonemia (Acute) - Physical Exam Vitals/I&O's: Vital Signs Temp Pulse Resp BP Pulse Ox 98.2 F 82 16 145/62 H 96 03/25/20 13:30 03/25/20 13:30 03/25/20 13:30 03/25/20 13:30 03/25/20 13:30 Oxygen Delivery Method Room Air Weight: 141.549 kg Body Mass Index (BMI) 43.5 Finger Stick Blood Glucose 93 General: Alert, Oriented x3, Cooperative HEENT: Atraumatic, PERRLA, EOMI, Normocephalic Neck: Supple, No JVD, Negative Carotid Bruits Lungs: Clear to auscultation, Normal air movement Cardiovascular: Regular rate, No murmurs Abdomen: Bowel Sounds Present, Soft, Non Tender Extremities: No edema, Capillary Refill Less than 3 Seconds Skin: No rashes, No breakdown Musculoskeletal: No Tenderness to Palpation of Joints or Extremities Neurological: Cranial nerves II-XII grossly intact Psych/Mental Status: Normal Affect, Appropriate Laboratory Results 03/25/20 14:30: COVID-19 ([facility]) Not Detected Current Medications Acetaminophen (Tylenol) 650 mg PO Q6H PRN PRN PRN Reason: Pain Score 1-10/Temp > 100.7 F Last Admin: 03/25/20 18:53 Dose: 650 mg Documented by: Amlodipine Besylate (Norvasc) 5 mg PO DAILY [facility] Ascorbic Acid (Vitamin C) 1,000 mg PO DAILY [facility] Calamine/Phenol (Calmoseptine Ointment) 1 applic TOPICAL 0600,2200 [facility]; Protocol Lactulose (Chronulac, Cephulac) 30 gm PO TID [facility] Last Admin: 03/25/20 15:18 Dose: 30 gm Documented by: Lisinopril (Zestril) 40 mg PO DAILY [facility] Nystatin (Mycostatin Powder) 1 applic TOPICAL 0600,2200 [facility]; Protocol Pantoprazole Sodium (Protonix) 20 mg PO DAILY [facility] Spironolactone (Aldactone) 25 mg PO DAILY [facility] Tuberculin PPD (Tubersol, Aplisol, Ppd) 5 tu ID X1 ONE Stop: 03/26/20 10:01 Tuberculin PPD (Tubersol, Aplisol, Ppd) 5 tu ID X1 ONE Stop: 06/17/20 10:01 Assessment/Plan All Active Problems Frequent falls (Acute) Abrasion, left knee, initial encounter (Acute) Contusion of left knee (Acute) Fatty liver with encephalopathy (Acute) Debility (Acute) Hepatic encephalopathy (Acute) Hyperammonemia (Acute) Increased ammonia level (Acute) Acute hepatic encephalopathy (Resolved) Aspiration pneumonia (Resolved) Bacteremia (Resolved) Cellulitis (Resolved) Cellulitis of right lower leg (Resolved) Chest pain (Resolved) Cholecystitis (Resolved) Decompensated hepatic cirrhosis (Resolved) Duodenal ulcer (Resolved) Hepatic encephalopathy (Resolved) Hepatic encephalopathy (Resolved) Hyperammonemia (Resolved) Rectal bleed (Resolved) 60 year old male with below past medical history hospitalized for frequent falls, complicated by hepatic encephalopathy secondary to BOOTHE cirrhosis, admitted to TCU with debility, here for rehabilitation, strengthening, prior to discharge home with family. Debility - PT/OT. Pain - Tylenol 650MG Q6H PRN pain (1-10). Bowel - Miralax 17GM daily, Senna/colace 1 tablet BID, Dulcolax 10MG NC daily PRN. Adult immunization - Administer Pneumovax 23, Fluzone as appropriate. DVT prophylaxis - Lovenox 40MG SC daily. Hypertension - Lisinopril 40MG daily, Amlodipine 5MG daily. Vitamin C deficiency - Vitamin C 1000MG daily. Hyperammonemia - Lactulose 30GM TID. Skin irritation - Calmoseptine BID. Tinea Corporis - Nystatin powder BID. GERD - Pantoprazole 20MG daily. BOOTHE cirrhosis - Aldactone 25MG daily.
[2020-03-26 05:45] LABS: Absolute Lymphocyte Count 0.77 X10^3/uL (0.83-4.51); Absolute Neutrophil Count 2.5 X10^3/uL (2.0-7.7); Basophil# 0.03 X10^3/uL; Basophil% 0.7 % (0-1); Eosinophil# 0.16 X10^3/uL; Hematocrit 37.8 % (40-54); Hemoglobin 12.3 g/dL (13.0-16.5); Lymphocyte # 0.77 X10^3/ul (4.0); Mean Corp Hgb Conc 32.5 g/dL (32-36); Mean Corpuscular Hgb 33.4 pg (27.0-32.0); Mean Corpuscular Volume 102.7 fL (80-94); Monocyte# 0.62 X10^3/uL; Monocyte% 15.3 % (0-10); NRBC Flagged by Analyzer 0 % (0-5); Neutrophil # 2.46 X10^3/uL (2.7-7.7); Neutrophil % 60.8 % (47-70); Platelet Count 113 K/mm3 (150-450); RBC Distribution Width CV 12.9 % (11.6-14.6); RBC Distribution Width SD 48.4 fl (35.1-43.9); Red Blood Count 3.68 M/mm3 (4.6-6.2); White Blood Count 4.1 K/mm3 (4.4-11.0)
[2020-03-26 06:09] LABS: Anion Gap 4 (5-15); BUN 22 mg/dL (7-18); BUN/Creat Ratio 29.1 RATIO (10-20); Calcium,Total 8.4 mg/dL (8.5-10.1); Chloride 110 mmol/L (98-107); Creatinine, Serum 0.76 mg/dL (0.70-1.30); EST Glomerular Filtration Rate 112 mL/min (>60); Est Glom Filt Rate - Afr Amer 135 mL/min (>60); Estimated Creatinine Clearance 110.09 ml/min; Glucose 89 mg/dL (74-106); Potassium 4.5 mmol/L (3.5-5.1); Sodium Level 143 mmol/L (136-145)
[2020-03-26] MEDS: Enoxaparin 40 MG/0.4 ML Syringe SC (06:26)
[2020-03-26] MEDS: amLODIPine 5 MG Tablet PO (06:27)
[2020-03-26] MEDS: Ascorbic Acid 500 MG Tablet 1000 MG PO (06:27)
[2020-03-26] MEDS: Lisinopril 40 MG Tablet PO (06:27)
[2020-03-26] MEDS: Lactulose 20 GM/30 ML UDC 30 GM PO ×3 (06:27→19:49)
[2020-03-26] MEDS: Menthol/Lanolin/Calamine/Znox 113 GM Tube 1 APPLIC TOPICAL ×2 (06:27→19:50)
[2020-03-26] MEDS: Spironolactone 25 MG Tablet PO (06:27)
[2020-03-26] MEDS: Pantoprazole Sodium 20 MG Tablet PO (06:27)
[2020-03-26] MEDS: Nystatin Powder 15gm Bottle 1 APPLIC TOPICAL ×2 (06:28→19:50)
[2020-03-26 06:29] VITALS: BP 131/69; PULSE 75; RESP 16; TEMP 36.3; O2SAT 96
[2020-03-26] MEDS: Senna/Docusate Sodium 1 Tablet PO (06:29)
[2020-03-26] MEDS: Acetaminophen 325 MG Tablet 650 MG PO ×2 (07:51→19:47)
[2020-03-26] MEDS: Tuberculin,Purif.prot.deriv. 50 TU/ML Vial 5 ML ID (10:46)
[2020-03-26 10:56] VITALS: RESP 16; O2SAT 95
[2020-03-26 11:21] VITALS: BP 158/64; PULSE 74; RESP 16; TEMP 36.7; O2SAT 95
--- NOTE | 2020-03-26 14:40 | PCM.PN.RX ---
<Chela Rutherford - Last Filed: 03/26/20 14:40> Progress Note - Pharmacy Subjective: TCU Admission Objective: Allergies aspirin Adverse Reaction (Verified 03/19/20 19:13) Upset Stomach Current Medications Generic Name Dose Route Start Last Admin Trade Name Freq PRN Reason Stop Dose Admin Acetaminophen 650 mg 03/25/20 13:32 03/26/20 07:51 Tylenol PO 650 mg Q6H PRN PRN Administration Pain Score 1-10/Temp > 100.7 F Amlodipine Besylate 5 mg 03/26/20 06:00 03/26/20 06:27 Norvasc PO 5 mg DAILY [facility] Administration Ascorbic Acid 1,000 mg 03/26/20 06:00 03/26/20 06:27 Vitamin C PO 1,000 mg DAILY [facility] Administration Bisacodyl 10 mg 03/25/20 21:17 Dulcolax RECTAL DAILY PRN Constipation Calamine/Phenol 1 applic 03/25/20 22:00 03/26/20 06:27 Calmoseptine Ointment TOPICAL 1 applicatio 599,2199 [facility] Administration Protocol Enoxaparin Sodium 40 mg 03/26/20 06:00 03/26/20 06:26 Lovenox SC 40 mg DAILY@0600 [facility] Administration Lactulose 30 gm 03/25/20 14:00 03/26/20 13:22 Chronulac, Cephulac PO 30 gm TID [facility] Administration Lisinopril 40 mg 03/26/20 06:00 03/26/20 06:27 Zestril PO 40 mg DAILY [facility] Administration Nystatin 1 applic 03/25/20 22:00 03/26/20 06:28 Mycostatin Powder TOPICAL 1 applicatio 599,0 [facility] Administration Protocol Pantoprazole Sodium 20 mg 03/26/20 06:00 03/26/20 06:27 Protonix PO 20 mg DAILY [facility] Administration Senna/Docusate Sodium 1 tablet 03/26/20 06:00 03/26/20 06:29 Senokot-S, Kaleigh-Colace PO 1 tablet BID [facility] Administration Spironolactone 25 mg 03/26/20 06:00 03/26/20 06:27 Aldactone PO 25 mg DAILY [facility] Administration Tuberculin PPD 5 tu 04/02/20 10:00 Tubersol, Aplisol, Ppd ID 04/02/20 10:01 X1 ONE Problem List Debility (Acute) Stroke (Chronic) Dysarthria (Chronic) Body mass index (BMI) 40.0-44.9, adult (Chronic) Cirrhosis of liver (Chronic) Hepatic encephalopathy (Acute) Sleep apnea (Chronic) Duodenal ulcer (Chronic) Hyperammonemia (Acute) Vital Signs Temp Pulse Resp BP Pulse Ox 98.1 F 74 16 158/64 H 95 03/26/20 11:21 03/26/20 11:21 03/26/20 11:21 03/26/20 11:21 03/26/20 11:21 Oxygen Delivery Method Room Air Weight: 141.549 kg Body Mass Index (BMI) 43.5 Finger Stick Blood Glucose 93 Sodium 143 mmol/L (136-145) 03/26/20 05:20 Potassium 4.5 mmol/L (3.5-5.1) 03/26/20 05:20 Chloride 110 mmol/L (98-107) H 03/26/20 05:20 Carbon Dioxide 29.0 mmol/L (21.0-32.0) 03/26/20 05:20 Anion Gap 4 (5-15) L 03/26/20 05:20 BUN 22 mg/dL (7-18) H 03/26/20 05:20 Creatinine 0.76 mg/dL (0.70-1.30) 03/26/20 05:20 Est GFR (MDRD) Af Amer 135 mL/min (>60) 03/26/20 05:20 Est GFR (MDRD) Non-Af 112 mL/min (>60) 03/26/20 05:20 BUN/Creatinine Ratio 29.1 RATIO (10-20) H 03/26/20 05:20 Glucose 89 mg/dL (74-106) 03/26/20 05:20 Assessment/Plan: 1. Pain: acetaminophen 650mg PO Q6H PRN pain 1-07/26 or Temp >100.7F. Please continue to monitor for pain, PRN usage and fever. 2. DVT prophylaxis: enoxaparin 40mg SC daily. Please continue to monitor for S/S of bleeding, renal function and platelets. 3. Hypertension: lisinopril 40mg PO daily and amlodipine 5mg PO daily. Please continue to monitor BP (last 158/64), potassium, renal function and swelling. 4. BOOTHE cirrhosis: spironolactone 25mg PO daily. Please continue to monitor renal function and potassium. 5. GERD: pantoprazole 20mg PO daily. Please continue to monitor for S/S of GERD. 6. Hyperammonemia: lactulose 30gm PO TID. Please continue to monitor for diarrhea and ammonia levels. *7. Vitamin C deficiency: ascorbic acid 1000mg PO daily. Please consider ordering a vitamin C level now and then annually as clinically appropriate. Thanks. Psychotropic Medications: None Unnecessary Medications: None Bowel Regimen: senna/docusate 1T PO BID and bisacodyl 10mg NM daily PRN constipation. Please continue to monitor for constipation and PRN usage. Date of Note:: 03/26/20 - Provider Comments Provider responsibility: Provider responsible to enter orders to implement recommendations <Adin Rodriguez Chi - Last Filed: 03/26/20 17:26> Progress Note - Pharmacy Subjective: [] Objective: Allergies aspirin Adverse Reaction (Verified 03/19/20 19:13) Upset Stomach Current Medications Generic Name Dose Route Start Last Admin Trade Name Freq PRN Reason Stop Dose Admin Acetaminophen 650 mg 03/25/20 13:32 03/26/20 07:51 Tylenol PO 650 mg Q6H PRN PRN Administration Pain Score 1-10/Temp > 100.7 F Amlodipine Besylate 5 mg 03/26/20 06:00 03/26/20 06:27 Norvasc PO 5 mg DAILY [facility] Administration Ascorbic Acid 1,000 mg 03/26/20 06:00 03/26/20 06:27 Vitamin C PO 1,000 mg DAILY [facility] Administration Bisacodyl 10 mg 03/25/20 21:17 Dulcolax RECTAL DAILY PRN Constipation Calamine/Phenol 1 applic 03/25/20 22:00 03/26/20 06:27 Calmoseptine Ointment TOPICAL 1 applicatio 0600,2200 [facility] Administration Protocol Enoxaparin Sodium 40 mg 03/26/20 06:00 03/26/20 06:26 Lovenox SC 40 mg DAILY@0600 [facility] Administration Lactulose 30 gm 03/25/20 14:00 03/26/20 13:22 Chronulac, Cephulac PO 30 gm TID [facility] Administration Lisinopril 40 mg 03/26/20 06:00 03/26/20 06:27 Zestril PO 40 mg DAILY [facility] Administration Nystatin 1 applic 03/25/20 22:00 03/26/20 06:28 Mycostatin Powder TOPICAL 1 applicatio 0600,2200 [facility] Administration Protocol Pantoprazole Sodium 20 mg 03/26/20 06:00 03/26/20 06:27 Protonix PO 20 mg DAILY [facility] Administration Senna/Docusate Sodium 1 tablet 03/26/20 06:00 03/26/20 06:29 Senokot-S, Kaleigh-Colace PO 1 tablet BID [facility] Administration Spironolactone 25 mg 03/26/20 06:00 03/26/20 06:27 Aldactone PO 25 mg DAILY [facility] Administration Tuberculin PPD 5 tu 04/02/20 10:00 Tubersol, Aplisol, Ppd ID 04/02/20 10:01 X1 ONE Problem List Debility (Acute) Stroke (Chronic) Dysarthria (Chronic) Body mass index (BMI) 40.0-44.9, adult (Chronic) Cirrhosis of liver (Chronic) Hepatic encephalopathy (Acute) Sleep apnea (Chronic) Duodenal ulcer (Chronic) Hyperammonemia (Acute) Vital Signs Temp Pulse Resp BP Pulse Ox 98.1 F 74 16 158/64 H 95 03/26/20 11:21 03/26/20 11:21 03/26/20 11:21 03/26/20 11:21 03/26/20 11:21 Oxygen Delivery Method Room Air Weight: 141.549 kg Body Mass Index (BMI) 43.5 Finger Stick Blood Glucose 93 Sodium 143 mmol/L (136-145) 03/26/20 05:20 Potassium 4.5 mmol/L (3.5-5.1) 03/26/20 05:20 Chloride 110 mmol/L (98-107) H 03/26/20 05:20 Carbon Dioxide 29.0 mmol/L (21.0-32.0) 03/26/20 05:20 Anion Gap 4 (5-15) L 03/26/20 05:20 BUN 22 mg/dL (7-18) H 03/26/20 05:20 Creatinine 0.76 mg/dL (0.70-1.30) 03/26/20 05:20 Est GFR (MDRD) Af Amer 135 mL/min (>60) 03/26/20 05:20 Est GFR (MDRD) Non-Af 112 mL/min (>60) 03/26/20 05:20 BUN/Creatinine Ratio 29.1 RATIO (-20) H 03/26/20 05:20 Glucose 89 mg/dL (74-106) 03/26/20 05:20 Assessment/Plan: Psychotropic Medications: Unnecessary Medications: Bowel Regimen: - Provider Comments Provider responsibility: Provider responsible to enter orders to implement recommendations Provider Comments to Recommendations by Pharmacy: Agree
[2020-03-27] MEDS: Enoxaparin 40 MG/0.4 ML Syringe SC (05:45)
[2020-03-27] MEDS: amLODIPine 5 MG Tablet PO (05:45)
[2020-03-27] MEDS: Ascorbic Acid 500 MG Tablet 1000 MG PO (05:45)
[2020-03-27] MEDS: Pantoprazole Sodium 20 MG Tablet PO (05:45)
[2020-03-27] MEDS: Lactulose 20 GM/30 ML UDC 30 GM PO ×3 (05:45→20:55)
[2020-03-27] MEDS: Lisinopril 40 MG Tablet PO (05:45)
[2020-03-27] MEDS: Senna/Docusate Sodium 1 Tablet PO (05:45)
[2020-03-27] MEDS: Spironolactone 25 MG Tablet PO (05:45)
[2020-03-27] MEDS: Acetaminophen 325 MG Tablet 650 MG PO (05:47)
[2020-03-27] MEDS: Nystatin Powder 15gm Bottle 1 APPLIC TOPICAL ×2 (05:49→20:56)
[2020-03-27] MEDS: Menthol/Lanolin/Calamine/Znox 113 GM Tube 1 APPLIC TOPICAL ×2 (05:49→20:57)
[2020-03-27 05:52] VITALS: BP 131/79; PULSE 66; RESP 17; TEMP 36.6; O2SAT 98
[2020-03-27] MEDS: BACITRACIN 15 GM Tube 1 APPLIC TOPICAL (10:43)
[2020-03-27 13:32] VITALS: BP 132/63; PULSE 74; RESP 18; TEMP 36.7; O2SAT 98
[2020-03-28] MEDS: Pantoprazole Sodium 20 MG Tablet PO (04:27)
[2020-03-28] MEDS: Ascorbic Acid 500 MG Tablet 1000 MG PO (04:27)
[2020-03-28] MEDS: Senna/Docusate Sodium 1 Tablet PO ×2 (04:27→17:09)
[2020-03-28] MEDS: Lisinopril 40 MG Tablet PO (04:27)
[2020-03-28] MEDS: Enoxaparin 40 MG/0.4 ML Syringe SC (04:27)
[2020-03-28] MEDS: amLODIPine 5 MG Tablet PO (04:27)
[2020-03-28] MEDS: Lactulose 20 GM/30 ML UDC 30 GM PO ×3 (04:27→20:53)
[2020-03-28] MEDS: Spironolactone 25 MG Tablet PO (04:29)
[2020-03-28] MEDS: Menthol/Lanolin/Calamine/Znox 113 GM Tube 1 APPLIC TOPICAL ×2 (04:32→20:46)
[2020-03-28] MEDS: Nystatin Powder 15gm Bottle 1 APPLIC TOPICAL ×2 (04:33→20:44)
[2020-03-28 04:34] VITALS: BP 133/61; PULSE 68; RESP 20; TEMP 36.6; O2SAT 94
[2020-03-28 10:00] VITALS: PULSE 64; RESP 16; O2SAT 97
[2020-03-28 14:03] VITALS: BP 128/60; PULSE 71; RESP 18; TEMP 36.7; O2SAT 97
[2020-03-28] MEDS: rifAXIMin 550 MG Tablet PO (17:09)
--- NOTE | 2020-03-28 18:09 | NURSING ---
Update provided to family.
[2020-03-28] MEDS: BACITRACIN 15 GM Tube 1 APPLIC TOPICAL (20:54)
[2020-03-29 04:12] VITALS: BP 113/60; PULSE 70; RESP 18; TEMP 36.5; O2SAT 94
[2020-03-29] MEDS: Lactulose 20 GM/30 ML UDC 30 GM PO ×3 (04:13→20:49)
[2020-03-29] MEDS: Senna/Docusate Sodium 1 Tablet PO ×2 (04:14→17:39)
[2020-03-29] MEDS: rifAXIMin 550 MG Tablet PO ×2 (04:14→17:39)
[2020-03-29] MEDS: Pantoprazole Sodium 20 MG Tablet PO (04:14)
[2020-03-29] MEDS: Lisinopril 40 MG Tablet PO ×2 (04:14)
[2020-03-29] MEDS: Ascorbic Acid 500 MG Tablet 1000 MG PO (04:14)
[2020-03-29] MEDS: amLODIPine 5 MG Tablet PO (04:14)
[2020-03-29] MEDS: Enoxaparin 40 MG/0.4 ML Syringe SC (04:15)
[2020-03-29] MEDS: Menthol/Lanolin/Calamine/Znox 113 GM Tube 1 APPLIC TOPICAL ×2 (04:17→20:52)
[2020-03-29] MEDS: Nystatin Powder 15gm Bottle 1 APPLIC TOPICAL ×2 (04:17→20:51)
[2020-03-29] MEDS: Spironolactone 25 MG Tablet PO (04:18)
[2020-03-29 14:18] VITALS: BP 108/71; PULSE 61; RESP 17; TEMP 36.8; O2SAT 95
[2020-03-29] MEDS: BACITRACIN 15 GM Tube 1 APPLIC TOPICAL (20:53)
[2020-03-30 05:10] VITALS: BP 126/72; PULSE 80; RESP 18; TEMP 36.6; O2SAT 97
[2020-03-30] MEDS: amLODIPine 5 MG Tablet PO (05:12)
[2020-03-30] MEDS: Enoxaparin 40 MG/0.4 ML Syringe SC (05:12)
[2020-03-30] MEDS: Ascorbic Acid 500 MG Tablet 1000 MG PO (05:13)
[2020-03-30] MEDS: Pantoprazole Sodium 20 MG Tablet PO (05:13)
[2020-03-30] MEDS: Senna/Docusate Sodium 1 Tablet PO ×2 (05:13→17:27)
[2020-03-30] MEDS: Spironolactone 25 MG Tablet PO (05:13)
[2020-03-30] MEDS: rifAXIMin 550 MG Tablet PO ×2 (05:14→17:27)
[2020-03-30] MEDS: Lactulose 20 GM/30 ML UDC 30 GM PO ×3 (05:15→21:07)
[2020-03-30] MEDS: Menthol/Lanolin/Calamine/Znox 113 GM Tube 1 APPLIC TOPICAL ×2 (05:18→21:10)
[2020-03-30] MEDS: Nystatin Powder 15gm Bottle 1 APPLIC TOPICAL ×2 (05:18→21:08)
[2020-03-30] MEDS: Lisinopril 40 MG Tablet PO (05:20)
[2020-03-30 10:00] VITALS: PULSE 77; RESP 14; O2SAT 97
[2020-03-30 15:52] VITALS: BP 120/57; PULSE 67; RESP 17; TEMP 36.6; O2SAT 95
[2020-03-30] MEDS: BACITRACIN 15 GM Tube 1 APPLIC TOPICAL (21:11)
[2020-03-31 06:12] VITALS: BP 118/50; PULSE 69; RESP 18; TEMP 36.6; O2SAT 96
[2020-03-31] MEDS: Lactulose 20 GM/30 ML UDC 30 GM PO ×3 (06:14→20:32)
[2020-03-31] MEDS: Spironolactone 25 MG Tablet PO (06:15)
[2020-03-31] MEDS: rifAXIMin 550 MG Tablet PO ×2 (06:15→17:50)
[2020-03-31] MEDS: Enoxaparin 40 MG/0.4 ML Syringe SC (06:15)
[2020-03-31] MEDS: Senna/Docusate Sodium 1 Tablet PO (06:15)
[2020-03-31] MEDS: Ascorbic Acid 500 MG Tablet 1000 MG PO (06:15)
[2020-03-31] MEDS: Pantoprazole Sodium 20 MG Tablet PO (06:15)
[2020-03-31] MEDS: amLODIPine 5 MG Tablet PO (06:15)
[2020-03-31] MEDS: Lisinopril 40 MG Tablet PO (06:15)
[2020-03-31] MEDS: Menthol/Lanolin/Calamine/Znox 113 GM Tube 1 APPLIC TOPICAL ×2 (06:21→20:31)
[2020-03-31] MEDS: Nystatin Powder 15gm Bottle 1 APPLIC TOPICAL ×2 (06:21→20:31)
[2020-03-31 14:21] VITALS: BP 121/57; PULSE 67; RESP 16; TEMP 36.6; O2SAT 97
--- NOTE | 2020-03-31 15:01 | NURSING ---
Application Security Engineer Note: Video call with resident and . Resident able to speak to via video and provided support and encouragement. Next call set for Tuesday, 04/02.
[2020-04-01 04:00] VITALS: BP 118/64; PULSE 64; RESP 18; TEMP 36.9; O2SAT 98
[2020-04-01] MEDS: Menthol/Lanolin/Calamine/Znox 113 GM Tube 1 APPLIC TOPICAL ×2 (05:18→21:37)
[2020-04-01] MEDS: amLODIPine 5 MG Tablet PO (05:19)
[2020-04-01] MEDS: Senna/Docusate Sodium 1 Tablet PO ×2 (05:19→16:37)
[2020-04-01] MEDS: Lactulose 20 GM/30 ML UDC 30 GM PO ×2 (05:19→13:38)
[2020-04-01] MEDS: Lisinopril 40 MG Tablet PO (05:19)
[2020-04-01] MEDS: Spironolactone 25 MG Tablet PO (05:20)
[2020-04-01] MEDS: Nystatin Powder 15gm Bottle 1 APPLIC TOPICAL ×2 (05:20→21:37)
[2020-04-01] MEDS: Pantoprazole Sodium 20 MG Tablet PO (05:20)
[2020-04-01] MEDS: Enoxaparin 40 MG/0.4 ML Syringe SC (05:20)
[2020-04-01] MEDS: Ascorbic Acid 500 MG Tablet 1000 MG PO (05:21)
[2020-04-01] MEDS: rifAXIMin 550 MG Tablet PO ×2 (05:22→16:37)
[2020-04-01 10:00] VITALS: PULSE 61; RESP 16; O2SAT 96
--- NOTE | 2020-04-01 14:35 | NURSING ---
Update provided to family.
[2020-04-01 14:36] VITALS: BP 108/52; PULSE 69; RESP 18; TEMP 36.6; O2SAT 97
--- NOTE | 2020-04-02 03:15 | NURSING ---
2129- Pt refusing lactulose states I'm not taking any more of that today. Discussed rationale for medication pt continues to refuse. States he will take AM dose.
[2020-04-02 05:55] LABS: Absolute Lymphocyte Count 1.18 X10^3/uL (0.83-4.51); Absolute Neutrophil Count 2.7 X10^3/uL (2.0-7.7); Basophil# 0.04 X10^3/uL; Basophil% 0.9 % (0-1); Eosinophil# 0.16 X10^3/uL; Eosinophils% 3.5 % (0-5); Hematocrit 36.8 % (40-54); Hemoglobin 12.1 g/dL (13.0-16.5); Lymphocyte # 1.18 X10^3/ul (4.0); Lymphocyte % 25.5 % (19-41); Mean Corp Hgb Conc 32.9 g/dL (32-36); Mean Corpuscular Hgb 33.9 pg (27.0-32.0); Mean Corpuscular Volume 103.1 fL (80-94); Mean Platelet Vol. 8.4 fl (6.2-12.0); Monocyte# 0.56 X10^3/uL; Monocyte% 12.1 % (0-10); NRBC Flagged by Analyzer 0 % (0-5); Neutrophil # 2.68 X10^3/uL (2.7-7.7); Neutrophil % 57.8 % (47-70); Platelet Count 165 K/mm3 (150-450); RBC Distribution Width CV 12.7 % (11.6-14.6); Red Blood Count 3.57 M/mm3 (4.6-6.2); White Blood Count 4.6 K/mm3 (4.4-11.0)
[2020-04-02 05:57] VITALS: BP 144/73; PULSE 70; RESP 18; TEMP 36.5; O2SAT 96
[2020-04-02] MEDS: Lactulose 20 GM/30 ML UDC 30 GM PO ×3 (06:00→21:10)
[2020-04-02] MEDS: Senna/Docusate Sodium 1 Tablet PO ×2 (06:01→17:43)
[2020-04-02] MEDS: amLODIPine 5 MG Tablet PO (06:01)
[2020-04-02] MEDS: Ascorbic Acid 500 MG Tablet 1000 MG PO (06:01)
[2020-04-02] MEDS: Enoxaparin 40 MG/0.4 ML Syringe SC (06:01)
[2020-04-02] MEDS: Lisinopril 40 MG Tablet PO (06:01)
[2020-04-02] MEDS: Spironolactone 25 MG Tablet PO (06:01)
[2020-04-02] MEDS: Pantoprazole Sodium 20 MG Tablet PO (06:01)
[2020-04-02] MEDS: rifAXIMin 550 MG Tablet PO ×2 (06:01→17:43)
[2020-04-02] MEDS: Nystatin Powder 15gm Bottle 1 APPLIC TOPICAL ×2 (06:03→21:12)
[2020-04-02] MEDS: Menthol/Lanolin/Calamine/Znox 113 GM Tube 1 APPLIC TOPICAL ×2 (06:03→21:13)
[2020-04-02 06:27] LABS: Anion Gap 4 (5-15); BUN 29 mg/dL (7-18); BUN/Creat Ratio 25.9 RATIO (10-20); Calcium,Total 8.6 mg/dL (8.5-10.1); Chloride 110 mmol/L (98-107); Creatinine, Serum 1.12 mg/dL (0.70-1.30); EST Glomerular Filtration Rate 71 mL/min (>60); Est Glom Filt Rate - Afr Amer 86 mL/min (>60); Glucose 90 mg/dL (74-106); Potassium 4.8 mmol/L (3.5-5.1); Sodium Level 141 mmol/L (136-145)
[2020-04-02] MEDS: Tuberculin,Purif.prot.deriv. 50 TU/ML Vial 5 ML ID (10:47)
--- NOTE | 2020-04-02 13:28 | CASEMGMT ---
Social Work IDT met with patient and via conference call for care plan meeting. Discussed patient's progress in therapy. Pt is SBA for transfers, walking 40 ft with FWW at SBA, in assist for LE ADLS, set up for UE ADLS, SBA for toileting, and using 2-3lbs on wts on UE. states she can assist with LE ADLS if needed. Pt;s weight is stable, good intake and on a regular diet. Pt is out of room isolation 04/09, at which time therapy and practice steps with pt. is concerned with pt discharging home prior to being able to safely complete steps as she is unable to assist. is looking into building a ramp but their own is rental property and they have a request to the landlord. Explained [employer] insurance with [facility] 04/04, provided care plan with [facility] 04/08. Continued stay is not guaranteed. Will continue to follow. JEFFRY WakefieldW
[2020-04-02 14:10] VITALS: BP 125/55; PULSE 70; RESP 16; TEMP 36.4; O2SAT 94
--- NOTE | 2020-04-02 15:55 | NURSING ---
In Flight Refueling System Repairer Note: Video call with resident to , Marielle. Also RN INTERNATIONAL present to allow to observe resident's use of step with walker. Resident and able to discuss plans for his return home. Both thankful for video call.
[2020-04-02 21:16] VITALS: RESP 16
[2020-04-03 04:54] VITALS: BP 144/73; PULSE 70; RESP 18; TEMP 36.5; O2SAT 95
[2020-04-03] MEDS: Spironolactone 25 MG Tablet PO (05:13)
[2020-04-03] MEDS: Enoxaparin 40 MG/0.4 ML Syringe SC (05:14)
[2020-04-03] MEDS: Nystatin Powder 15gm Bottle 1 APPLIC TOPICAL ×2 (05:14→21:54)
[2020-04-03] MEDS: Ascorbic Acid 500 MG Tablet 1000 MG PO (05:15)
[2020-04-03] MEDS: Pantoprazole Sodium 20 MG Tablet PO (05:15)
[2020-04-03] MEDS: Senna/Docusate Sodium 1 Tablet PO (05:15)
[2020-04-03] MEDS: amLODIPine 5 MG Tablet PO (05:15)
[2020-04-03] MEDS: Lisinopril 40 MG Tablet PO (05:16)
[2020-04-03] MEDS: rifAXIMin 550 MG Tablet PO ×2 (05:16→16:11)
[2020-04-03] MEDS: Menthol/Lanolin/Calamine/Znox 113 GM Tube 1 APPLIC TOPICAL ×2 (05:17→21:56)
[2020-04-03] MEDS: Lactulose 20 GM/30 ML UDC 30 GM PO ×3 (05:18→21:53)
[2020-04-03 10:03] VITALS: PULSE 78; RESP 18; O2SAT 95
[2020-04-03 13:33] VITALS: BP 111/43; PULSE 68; RESP 16; TEMP 36.7; O2SAT 96
[2020-04-04 06:28] VITALS: BP 120/64; PULSE 61; RESP 18; TEMP 36.7; O2SAT 97
[2020-04-04] MEDS: Lactulose 20 GM/30 ML UDC 30 GM PO ×2 (06:30→13:43)
[2020-04-04] MEDS: rifAXIMin 550 MG Tablet PO ×2 (06:31→17:16)
[2020-04-04] MEDS: Menthol/Lanolin/Calamine/Znox 113 GM Tube 1 APPLIC TOPICAL ×2 (06:31→21:32)
[2020-04-04] MEDS: Nystatin Powder 15gm Bottle 1 APPLIC TOPICAL ×2 (06:31→21:32)
[2020-04-04] MEDS: Lisinopril 40 MG Tablet PO (06:31)
[2020-04-04] MEDS: Ascorbic Acid 500 MG Tablet 1000 MG PO (06:31)
[2020-04-04] MEDS: Enoxaparin 40 MG/0.4 ML Syringe SC (06:31)
[2020-04-04] MEDS: Spironolactone 25 MG Tablet PO (06:32)
[2020-04-04] MEDS: Pantoprazole Sodium 20 MG Tablet PO (06:32)
[2020-04-04] MEDS: amLODIPine 5 MG Tablet PO (06:32)
[2020-04-04 11:28] VITALS: BP 138/80; PULSE 63; RESP 16; TEMP 36.2; O2SAT 98
--- NOTE | 2020-04-04 15:48 | DCINST_ITS ---
- Discharge Diagnoses Current Active Problems: Current Active and Chronic Problems Debility (Acute) Stroke (Chronic) Dysarthria (Chronic) Body mass index (BMI) 40.0-44.9, adult (Chronic) Cirrhosis of liver (Chronic) Hepatic encephalopathy (Acute) Sleep apnea (Chronic) Duodenal ulcer (Chronic) Hyperammonemia (Acute) You will use the following diet at home:: No restrictions, Regular Your food should be the consistency of: Regular Your liquids should be the consistency of: Regular/Thin Discharge Activity: Return to Normal Activity, May Shower, Use Walker Weight Bearing Status: Weight bearing as tolerated Call your doctor if you observe: Fever of 101 or Higher, Inability to urinate, Inability to have a bowel movement, Shortness of breath, Chest pain, Uncontrolled pain Allergies/Adverse Reactions: Allergies aspirin Adverse Reaction (Verified 03/19/20 19:13) Upset Stomach Medications to take at Discharge Lisinopril [Zestril] 40 mg PO DAILY 12/24/15 Omeprazole [Prilosec] 20 mg PO DAILY 12/26/19 Amlodipine [Norvasc] 5 mg PO DAILY 12/27/19 Acetaminophen [Tylenol Tablet] 650 mg PO Q6H PRN PRN tab 03/25/20 Ascorbic Acid [Vitamin C] 1,000 mg PO DAILY 03/25/20 Spironolactone [Aldactone] 25 mg PO DAILY 03/25/20 Rifaximin 550 mg PO BID 03/27/20 Lactulose [Chronulac] 30 gm PO TID #4000 ml 04/04/20 Menthol/Lanolin/Calamine/Znox [Calmoseptine Ointment] 1 applic TOPICAL 0600,2200 tube 04/04/20 Nystatin Powder [Mycostatin Powder] 1 applic TOPICAL 0600,2200 bottle 04/04/20 Rifaximin [Xifaxan] 550 mg PO BID tablet 04/04/20 The following prescriptions were given: Lactulose [Chronulac] 30 gm PO TID #4000 ml Transmission Status: Pending to [id number] Primary Care Physician: Pedro Pablo Broussard III, MD [Primary Care Provider] - Please follow up with your Primary Care Physician in: 1 week. Test Results: Test results from this visit will be discussed in further detail at your follow- up appointment, if applicable. Proposed Discharge Date: 04/07/20
--- NOTE | 2020-04-04 15:50 | PCM.DC.SUM ---
Discharge Date and Diagnosis - Problem List Patient Problems: Active and Suspected Problems Debility (Acute) Hepatic encephalopathy (Acute) Hyperammonemia (Acute) Date of Admission: 03/25/20 Date of Discharge: 04/07/20 - Primary Discharge Diagnosis Acute Problems: Active Problems Debility (Acute) Hepatic encephalopathy (Acute) Hyperammonemia (Acute) - Secondary Discharge Diagnosis Chronic Problems: Chronic Problems Stroke (Chronic) Dysarthria (Chronic) Body mass index (BMI) 40.0-44.9, adult (Chronic) Cirrhosis of liver (Chronic) Sleep apnea (Chronic) Duodenal ulcer (Chronic) BOOTHE (nonalcoholic steatohepatitis) (Chronic) HLD (hyperlipidemia) (Chronic) Stasis dermatitis (Chronic) Morbid obesity with body mass index of 45.0-49.9 in adult (Chronic) GERD (gastroesophageal reflux disease) (Chronic) SANTHOSH (obstructive sleep apnea) (Chronic) TIA (transient ischemic attack) (Chronic) 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) old stroke not visible on MRI- [facility] neurology opinion History of peptic ulcer (Chronic) Osteoarthritis (Chronic) HTN (hypertension) (Chronic) Hospital Course and Treatment Imaging Results: 03/25/20 13:35 Diet: Cardiac/Low Cholesterol Food consistency:: Regular Liquid Consistency:: Regular/Thin Is pt able to select menu?: Yes Diet Comments: low sodium Operations: None Procedures: None Summary of Care Provided: The patient is a 60 year old Male with below past medical history hospitalized for frequent falls, complicated by hepatic encephalopathy secondary to BOOTHE cirrhosis, admitted to TCU with debility, here for rehabilitation, strengthening, prior to discharge home with family. Discharge home with , Home Health Care PT/OT/SN. Patient Problems: Active and Suspected Problems Debility (Acute) Hepatic encephalopathy (Acute) Hyperammonemia (Acute) - Physical Exam Vitals/I&O's: Vital Signs Temp Pulse Resp BP Pulse Ox 97.2 F L 63 16 138/80 H 98 04/04/20 11:28 04/04/20 11:28 04/04/20 11:28 04/04/20 11:28 04/04/20 11:28 Oxygen Delivery Method Room Air Weight: 141.748 kg Body Mass Index (BMI) 43.5 Finger Stick Blood Glucose 93 Intake and Output for Last 24 Hours 04/02/20 04/03/20 04/04/20 23:59 23:59 23:59 Intake Total 700 / 700 600 / 600 600 / 600 Output Total 200 / 200 Balance 700 / 700 400 / 400 600 / 600 Current Medications Acetaminophen (Tylenol) 650 mg PO Q6H PRN PRN PRN Reason: Pain Score 1-10/Temp > 100.7 F Last Admin: 03/27/20 05:47 Dose: 650 mg Documented by: Amlodipine Besylate (Norvasc) 5 mg PO DAILY COUNT INCLUDES THE [facility] Last Admin: 04/04/20 06:32 Dose: 5 mg Documented by: Ascorbic Acid (Vitamin C) 1,000 mg PO DAILY COUNT INCLUDES THE [facility] Last Admin: 04/04/20 06:31 Dose: 1,000 mg Documented by: Bisacodyl (Dulcolax) 10 mg RECTAL DAILY PRN PRN Reason: Constipation Calamine/Phenol (Calmoseptine Ointment) 1 applic TOPICAL 0600,2200 COUNT INCLUDES THE [facility]; Protocol Last Admin: 04/04/20 06:31 Dose: 1 applicatio Documented by: Enoxaparin Sodium (Lovenox) 40 mg SC DAILY@0600 COUNT INCLUDES THE [facility] Last Admin: 04/04/20 06:31 Dose: 40 mg Documented by: Lactulose (Chronulac, Cephulac) 30 gm PO TID COUNT INCLUDES THE [facility] Last Admin: 04/04/20 13:43 Dose: 30 gm Documented by: Lisinopril (Zestril) 40 mg PO DAILY COUNT INCLUDES THE [facility] Last Admin: 04/04/20 06:31 Dose: 40 mg Documented by: Nystatin (Mycostatin Powder) 1 applic TOPICAL 0600,2200 COUNT INCLUDES THE [facility]; Protocol Last Admin: 04/04/20 06:31 Dose: 1 applicatio Documented by: Pantoprazole Sodium (Protonix) 20 mg PO DAILY COUNT INCLUDES THE [facility] Last Admin: 04/04/20 06:32 Dose: 20 mg Documented by: Rifaximin (Xifaxan) 550 mg PO BID COUNT INCLUDES THE [facility] Last Admin: 04/04/20 06:31 Dose: 550 mg Documented by: Senna/Docusate Sodium (Senokot-S, K[place]-Colace) 1 tablet PO BID PRN PRN Reason: Constipation Spironolactone (Aldactone) 25 mg PO DAILY COUNT INCLUDES THE [facility] Last Admin: 04/04/20 06:32 Dose: 25 mg Documented by: Discharge Diet: No Restrictions Discharge Activity: Return to Normal Activity, May Shower, Use Walker Weight Bearing Status: Weight bearing as tolerated Call your doctor if you observe: Fever of 101 or Higher, Inability to urinate, Inability to have a bowel movement, Shortness of breath, Chest pain, Uncontrolled pain Home Medications: Medications to take at Discharge Lisinopril [Zestril] 40 mg PO DAILY 12/24/15 Omeprazole [Prilosec] 20 mg PO DAILY 12/26/19 Amlodipine [Norvasc] 5 mg PO DAILY 12/27/19 Acetaminophen [Tylenol Tablet] 650 mg PO Q6H PRN PRN tab 03/25/20 Ascorbic Acid [Vitamin C] 1,000 mg PO DAILY 03/25/20 Spironolactone [Aldactone] 25 mg PO DAILY 03/25/20 Rifaximin 550 mg PO BID 03/27/20 Lactulose [Chronulac] 30 gm PO TID #4000 ml 04/04/20 Menthol/Lanolin/Calamine/Znox [Calmoseptine Ointment] 1 applic TOPICAL 0600,2200 tube 04/04/20 Nystatin Powder [Mycostatin Powder] 1 applic TOPICAL 0600,2200 bottle 04/04/20 Rifaximin [Xifaxan] 550 mg PO BID tablet 04/04/20 Following Prescrptions Were Given to Patient: Lactulose [Chronulac] 30 gm PO TID #4000 ml Transmission Status: Pending to [id number] Primary Care Physician: Pedro Pablo Broussard III, MD [Primary Care Provider] - Please follow up with your Primary Care Physician in: 1 week. Disposition: Home with Home Health Minutes spent on discharge:: 35 Patient Condition:: Stable Medical Necessity - Tobacco Use Smoking Status: Never smoker Tobacco Use: Non-smoker Meaningful Use Info Meaningful Use Diagnoses (Choose all that apply): None applicable
--- NOTE | 2020-04-04 16:04 | CASEMGMT ---
Social Work Notified pt and that insurance issued LCD 04/06, DC 04/07. Pt chose [facility] - referral made for PT/OT/SN. No DME needs. to purchase shower chair. JEFFRY LandryW
[2020-04-05 05:02] VITALS: BP 124/57; PULSE 64; RESP 16; TEMP 36.4; O2SAT 97
[2020-04-05] MEDS: rifAXIMin 550 MG Tablet PO ×2 (05:04→17:04)
[2020-04-05] MEDS: Ascorbic Acid 500 MG Tablet 1000 MG PO (05:05)
[2020-04-05] MEDS: Pantoprazole Sodium 20 MG Tablet PO (05:05)
[2020-04-05] MEDS: Spironolactone 25 MG Tablet PO (05:05)
[2020-04-05] MEDS: Enoxaparin 40 MG/0.4 ML Syringe SC (05:05)
[2020-04-05] MEDS: amLODIPine 5 MG Tablet PO (05:06)
[2020-04-05] MEDS: Lisinopril 40 MG Tablet PO (05:06)
[2020-04-05] MEDS: Lactulose 20 GM/30 ML UDC 30 GM PO ×3 (05:08→19:51)
[2020-04-05] MEDS: Menthol/Lanolin/Calamine/Znox 113 GM Tube 1 APPLIC TOPICAL ×2 (05:09→19:52)
[2020-04-05] MEDS: Nystatin Powder 15gm Bottle 1 APPLIC TOPICAL ×2 (05:09→19:53)
[2020-04-05 15:33] VITALS: BP 120/77; PULSE 66; RESP 18; TEMP 37.2; O2SAT 97
[2020-04-06 05:39] VITALS: BP 125/65; PULSE 66; RESP 18; TEMP 36.2; O2SAT 95
[2020-04-06] MEDS: Lisinopril 40 MG Tablet PO (05:43)
[2020-04-06] MEDS: Ascorbic Acid 500 MG Tablet 1000 MG PO (05:43)
[2020-04-06] MEDS: Enoxaparin 40 MG/0.4 ML Syringe SC (05:43)
[2020-04-06] MEDS: Lactulose 20 GM/30 ML UDC 30 GM PO ×3 (05:43→20:55)
[2020-04-06] MEDS: rifAXIMin 550 MG Tablet PO ×2 (05:43→16:34)
[2020-04-06] MEDS: Spironolactone 25 MG Tablet PO (05:43)
[2020-04-06] MEDS: Pantoprazole Sodium 20 MG Tablet PO (05:43)
[2020-04-06] MEDS: Nystatin Powder 15gm Bottle 1 APPLIC TOPICAL ×2 (05:44→20:56)
[2020-04-06] MEDS: amLODIPine 5 MG Tablet PO (05:44)
[2020-04-06] MEDS: Menthol/Lanolin/Calamine/Znox 113 GM Tube 1 APPLIC TOPICAL ×2 (05:44→20:55)
[2020-04-06 12:31] VITALS: BP 146/56; PULSE 74; RESP 18; TEMP 36.2; O2SAT 95
[2020-04-07] MEDS: Lactulose 20 GM/30 ML UDC 30 GM PO (05:13)
[2020-04-07] MEDS: Ascorbic Acid 500 MG Tablet 1000 MG PO (05:14)
[2020-04-07] MEDS: Pantoprazole Sodium 20 MG Tablet PO (05:14)
[2020-04-07] MEDS: Lisinopril 40 MG Tablet PO (05:14)
[2020-04-07] MEDS: rifAXIMin 550 MG Tablet PO (05:14)
[2020-04-07] MEDS: amLODIPine 5 MG Tablet PO (05:14)
[2020-04-07] MEDS: Enoxaparin 40 MG/0.4 ML Syringe SC (05:14)
[2020-04-07] MEDS: Spironolactone 25 MG Tablet PO (05:14)
[2020-04-07] MEDS: Nystatin Powder 15gm Bottle 1 APPLIC TOPICAL (05:17)
[2020-04-07] MEDS: Menthol/Lanolin/Calamine/Znox 113 GM Tube 1 APPLIC TOPICAL (05:17)
[2020-04-07 05:19] VITALS: BP 130/66; PULSE 64; RESP 18; TEMP 36.7; O2SAT 95
[2020-04-07 07:58] VITALS: PULSE 70; RESP 18; O2SAT 96
--- NOTE | 2020-04-07 10:49 | MDS.RN ---
Information for the mds was obtained from review of the clinical record, interview of resident, staff, and direct observation of resident's care.
== END 2020-04-07 10:00 | disposition home health service (06) | DRG 442 ==
PROVIDERS: Admitting Provider Family Medicine Geriatric Medicine; PCP Family Medicine; Visit Provider Family Medicine Geriatric Medicine
DX: K75.81 Nonalcoholic steatohepatitis (NASH) (principal); Z68.41 Body mass index [BMI] 40.0-44.9, adult; R29.6 Repeated falls; Z23 Encounter for immunization; K74.60 Unspecified cirrhosis of liver; K21.9 Gastro-esophageal reflux disease without esophagitis; B35.4 Tinea corporis; I10 Essential (primary) hypertension; G47.30 Sleep apnea, unspecified; E78.5 Hyperlipidemia, unspecified; E66.01 Morbid (severe) obesity due to excess calories; G47.33 Obstructive sleep apnea (adult) (pediatric); I69.322 Dysarthria following cerebral infarction; M19.90 Unspecified osteoarthritis, unspecified site; Z87.11 Personal history of peptic ulcer disease
CPT/HCPCS: 36415; 80048; 85025; 87635; 97110; 97116; 97162; 97166; 97530; 97535; 97802; G0009; G2023; 90670; U0003

== ENCOUNTER → 2021-05-12 12:08 | Outpatient (CLI) | payer MEDICARE, MEDICAID, SELFPAY ==
[2020-03-25 13:30] VITALS: BMI 43.5
--- NOTE | 2021-05-12 13:46 | SP.MBSS_ITS ---
Modified Barium Swallow - Patient Information Study Date: 05/12/21 Study Time: 13:00 Direct Billable Minutes: 100 Total Minutes procedure & reportin Diagnosis: Dysphagia, unspecified (R13.10) Referring Physician: Sloan Wood Reason for Referral: Patient reports food becoming stuck in his throat at meals. Plan to objectively assess swallow function, presence of stasis, and aspiration risk. Medical History: The patient is a 61 year old male with PMH below who reports complaints of stasis in his throat when consuming dry textures, such as meats and breads. He has dysarthria at baseline likely as a late effect of cerebrovascular disease/possible prior CVA that is not visible on MRI per [facility] neurology. The patient denies history of pneumonia. He has participated in two prior MBS studies, the most recent on 12/06/2013 recommending the patient for regular textures / thin liquids and small bites/sips, slow rate, throat clear and res wallow as needed. PMH: TIA, Anemia, Diverticulosis, Dysarthria, GERD, HTN, Peptic Ulcer, Morbid Obesity, SANTHOSH, OA, Stasis Dermatitis, Bilateral knee replacement Current Diet Ordered: Regular textures / Thin liquids Dentition: WNL Mental Status: WNL Respiratory Status: Oxygenating on Room Air - Study Findings Consistencies: Thin Liquid, [place] Thick Liquid, Honey Thick Liquid, Pudding, Cookie - Penetration-Aspiration Scale Penetration-Aspiration Scale: OBJECTIVE ASSESSMENT OF SWALLOW FUNCTION (QUANTITATIVE ? PER TRIAL): PENETRATION / ASPIRATION SCALE (LEVINE): 1 = does not enter airway 2 = enters airway/above vocal folds/ejected 3 = enters airway/above vocal folds/not ejected 4 = enters airway/contacts vocal folds/ejected 5 = enters airway/contacts vocal folds/not ejected 6 = enters airway/below vocal folds/ejected 7 = enters airway/below vocal folds/not ejected despite effort 8 = enters airway/below vocal folds/no effort VIDEOFLOROSCOPIC SCALE SCORE (LEVINE): Grade I = aspiration of material that has penetrated into the laryngeal vestibule, intact cough reflex Grade II = aspiration < 10 % of the bolus, intact cough reflex Grade III = aspiration of < 10 % of the bolus, reduced cough reflex or aspiration of > 10 % of the bolus, intact cough reflex Grade IV = aspiration of > 10 % of the bolus, reduced cough reflex - Penetration-Aspiration Scale Score Thin Liquid via teaspoon Result: 2= enter airway/above vocal folds/ejected Thin Liquid via teaspoon Trial 2 Result: 2= enter airway/above vocal folds/ejected Thin Liquid via small single sip from cup Result: 1= does not enter airway Thin Liquid via large single sip from cup Result: 2= enter airway/above vocal folds/ejected Thin Liquid via sequential sips from cup Result: 2= enter airway/above vocal folds/ejected [place] Thick Liquid via small single sip from cup Result: 1= does not enter airway Honey Thick Liquid via small single sip from cup Result: 1= does not enter airway Pudding Result: 1= does not enter airway Cookie Result: 1= does not enter airway Thin Liquid via single sip from straw Result: 3= enters airways/above vocal folds/not ejected - Could not fully determine if contrast ejected from laryngeal vestibule due to pt's body positioning during trial. Thin Liquid via sequential sips from straw Result: 3= enters airways/above vocal folds/not ejected - Could not fully determine if contrast ejected from laryngeal vestibule due to pt's body positioning during trial. Thin Liquid via small single sip from cup Effortful swallow Result: 2= enter airway/above vocal folds/ejected - Oral Phase Labial Seal: Interlabial escape, no progression to anterior lip Tongue Control During Bolus Hold: Posterior escape of less than half of bolus Bolus Preparation/Mastication: Slow prolonged chewing/mashing with complete recollection Bolus Transport/Lingual Motion: Brisk tongue motion Oral Residue: Majority of bolus remaining - Piecemeal deglutition observed with a majority of trials, both solid and liquid. Pt independently initiated double swallow to clear oral residues effectively. - Pharyngeal Phase Initiation of Pharyngeal Swallow: Bolus head in pyriforms Soft Palate Elevation: Trace column of contrast/air between soft palate and pharyngeal wall Laryngeal Elevation: Partial superior movement thyroid cart/partial apprx aryt- epig petiole Anterior Hyoid Excursion: Partial anterior movement Epiglottic Movement: Partial inversion Laryngeal Vestibule Closure at Height of Swallow: Incomplete; narrow column of air/contrast in laryngeal vestibule Pharyngeal Stripping Wave: Present - diminished Pharyngoesophageal Segment Opening: Parital distension and partial duration; parital obstruction of flow - Due to decreased duration of PES, pt presented with mild retention of contrast in PES with minimal retrograde flow above PES observed. Tongue Base Retraction: Narrow column of contrast between tongue base & post. pharyngeal wall Pharyngeal Residue: Collection of residue within or on pharyngeal structures - Esophageal Phase Esophageal Clearance: Complete clearance - Treatment Strategies Effects of treatment strategies attemped:: Decreased bolus size = Effective. Decreased bolus rate = Effective. Effortful swallow = Somewhat Effective. Straws = Not Effective. - Diagnosis/Impression Diagnosis: Mild oropharyngeal phase dysphagia (R13.12) Impression: The oral phase of the swallow is primarily marked by decreased bolus control with premature posterior spillage of less than half of the bolus of various thin liquid trials into the pyriform sinuses, resulting in suboptimal bolus placement for swallow onset. The patient also presented with piecemeal deglutition of a majority of trials of both liquid and solids textures; however, he did initiate a second swallow independently to clear oral residues effectively from oral ca vity. The pharyngeal phase of the swallow is primarily marked by decreased airway closure due to decreased hyoid excursion, decreased laryngeal elevation, and decreased pharyngeal contraction. The patient also had decreased duration of opening of the upper esophageal sphincter (UES), resulting in mild pharyngeal residues and retention of contrast evident in the UES. The patient did have minimal retrograde flow of cookie contrast through UES from the retention. The patient also presents with delayed onset of the pharyngeal swallow primarily with consumption of thin liquids. He presented with penetration of large and/or sequential thin liquid trials above the vocal folds. With use of straws, the amount of penetration increased, and the [employer] was unable to determine if the penetrated contrast fully ejected due to pt's body positioning. He benefited from consuming small, single sips of thin liquids via cup. - Recommendations Diet: Regular Textures - Easy to Chew (IDDSI Level 7) - consider moistening meats/breads with sauces and cutting meats bite-sized., Thin Liquids Compensatory Strategies: Small Bites, Small Sips, No Straws, Slow Rate - Consume one sip at a time., Alternate bites/solids and sips/liquids, Sitting upright, Remain sitting upright for 30 minutes after PO intake Supervision: Assist as needed Recommend Repeat Modified Barium Swallow: TBD Need for Skilled Speech Therapy Services: Yes Comment: Will recommend the patient for continued dysphagia therapy to address pt's mild deficits in the oropharyngeal phases of the swallow. Would consider the patient for oropharyngeal strengthening to improve hyolaryngeal elevation and excursion, pharyngeal contraction, UES opening, and tongue base retraction. The patient would benefit from thorough education regarding diet recommendations and recommended compensatory strategies to reduce his risk for aspiration. Education Completed: 1. Described result of evaluation., 2. Pt understands evaluation & agrees with goals and treatment plan., 7. Pt requires further education on strategies & risks. - Status Active ST Patient: Active - Contact Information [facility] Speech Therapy:: Mirlande Le M.A., [facility] Speech Language Pathologist [facility] [address] [place] [address] [email or web address] [phone]
== END ==
PROVIDERS: PCP Student in an Organized Health Care Education/Training Program; Referring Provider Student in an Organized Health Care Education/Training Program; Visit Provider Student in an Organized Health Care Education/Training Program
DX: R13.10 Dysphagia, unspecified (principal)
CPT/HCPCS: 74230; 92611

== ENCOUNTER 2022-02-06 10:22 | Emergency (ER) | payer MEDICARE, MEDICAID, SELFPAY ==
[2022-02-06 10:22] VITALS: BP 154/90; PULSE 86; RESP 16; TEMP 36.6; O2SAT 96; BMI 43.6
--- NOTE | 2022-02-06 10:50 | EDS_ITS ---
HPI History of Present Illness Chief Complaint: Foreign Body Informant: patient Narrative Narrative: Patient states he has a piece of meat stuck in his throat. Yesterday at about noon he was eating food. He swallowed it and feels like it got stuck. He has never had trouble breathing. If he tries to drink liquids they go down for a few seconds or a minute and then come back up. He was seen at [facility] emergency yesterday. They gave him doses of glucagon. They gave him laurel tomas to drink. This was not successful. They told him he would either need to go to [facility] or [facility]. He chose to come in here today. Symptoms have not worsened but they have also not gotten better. He did have this happen once many years ago but does not recall what happened. He does have a history of having esophageal dilation done many years ago. Patient also has a history of fatty liver/cirrhosis nonalcoholic. He is also on Xarelto for history of intermittent atrial fibrillation. He also had prior stroke. He has some speech and slight swallowing difficulties but normally eats regular foods. He has never had any chest or neck surgery or radiation therapy or cancers. [facility] Medical History (Updated 02/06/22 @ 16:[address] Jovanny Herndon MD) Abscess GERD (gastroesophageal reflux disease) HLD (hyperlipidemia) HTN (hypertension) BOOTHE (nonalcoholic steatohepatitis) SANTHOSH (obstructive sleep apnea) Stroke TIA (transient ischemic attack) Ulcer of upper extremity with fat layer exposed Home Medications ascorbic acid (vitamin C) 1,000 mg PO DAILY 03/25/20 [History Last Taken Unknown] spironolactone 25 mg PO DAILY 03/25/20 [History Last Taken Unknown] rifaximin 550 mg PO BID tab 04/04/20 [Rx Last Taken Unknown] lactulose 10 gm PO BID 01/21/22 [History Last Taken Unknown] metoprolol succinate [Toprol XL] 50 mg PO DAILY 01/21/22 [History Last Taken Unknown] pantoprazole [Protonix] 40 mg PO BIDAC 01/21/22 [History Last Taken Unknown] potassium chloride 20 meq PO DAILY 01/21/22 [History Last Taken Unknown] rivaroxaban [Xarelto] 20 mg PO QPM 01/21/22 [History Last Taken Unknown] vitamin A 8,000 mcg PO DAILY 01/21/22 [History Last Taken Unknown] acetaminophen 500 mg PO Q8H PRN PRN 02/06/22 [History Last Taken Unknown] bumetanide 2 mg PO DAILY 02/06/22 [History Last Taken Unknown] nystatin 1 applic TOPICAL TID 02/06/22 [History Last Taken Unknown] Allergy/AdvReac Type Severity Reaction Status Date / Time aspirin AdvReac Upset Verified 03/19/20 19:13 Stomach Social History Smoking Status: Never smoker ROS ROS ED Constitutional Constitutional ED: Denies chills or fever(s) Eyes Eyes: Denies blurry vision ENT ENT ED: Reports other Details: Feels impacted meat in throat. No real pain though. ; Denies rhinorrhea Cardiovascular Cardiovascular: Denies chest pain Respiratory/Chest Respiratory/Chest: Denies dyspnea Gastrointestinal Gastrointestinal: Reports other Details: Not able to drink. See history of present illness ; Denies nausea or vomiting Musculoskeletal Musculoskeletal: Denies myalgias Integumentary Denies rash Psychiatric Psychiatric: Denies anxiety or depression Endocrine Endocrinology: Denies polyuria Allergic/Immunologic Allergic/Immunologic ED: Denies urticaria EXAM Physical Exam Const Vital Signs: 02/06/22 10:22 02/06/22 10:53 02/06/22 12:27 Temperature 97.8 F Temperature Source Temporal Pulse Rate 86 62 Respiratory Rate 16 16 Respiratory Effort Normal Non-Labored Blood Pressure 154/90 H 122/82 H Blood Pressure Mean 111 95 Pulse Ox 96 96 Oxygen Delivery Method Room Air Room Air 02/06/22 14:05 Temperature Temperature Source Pulse Rate 60 Respiratory Rate 15 Respiratory Effort Blood Pressure 134/84 H Blood Pressure Mean 100 Pulse Ox 97 Oxygen Delivery Method Room Air Positive well nourished and well developed General Appearance ED: well developed and NAD; Negative for cyanotic or diaphoretic HEENT Reports moist mucous membranes HEENT Narrative: No oral lesions noted. Eyes General Eye ED: Negative for pale conjunctiva Neck no JVD Chest Wall inspection of chest normal Resp normal respiratory effort and clear to auscultation bilaterally Cardio regular rate and regular rhythm Rate: other Other Details: Patient has a history of A. fib. But his heart rate sounds regular at this time. GI normal to inspection, nondistended, normoactive bowel sounds GI Narrative: Abdomen is obese but otherwise soft and nontender. Extremity General Extremety ED: Yes edema General Extremity: edema Neuro Sensorium / Orientation: alert Psych mental status grossly normal Skin no rashes or lesions noted MDM MDM MDM Narrative Medical decision making narrative: Patient is almost 24 hours into his symptoms. He has already been given glucagon without success. I tried warmed diet Coke with heel drop at bedside. Due to the patient's overall health levels he is not able to really go up high on his heels and dropped firmly enough to make this a successful procedure. We have tried it several times. Not have gastroenterology on-call today. I did contact [facility]. I talked with her transfer line. They called the ER who states that these are not normally done in the ER anymore. They then called their hydrogen power plant engineer, Dr. Forrester. I did not talk to the individual myself. But evidently they do not have the facility beds or capability to manage him today. I now have calls out to [facility] in [place]. I contacted [facility] transfer line. I then discussed the case with Dr. Cartagena. He will accept patient in transfer. He requested an IV which was already in place. He did request that we do comprehensive metabolic, CBC and INR. We had gone over his lab test from the seventh of this month as well as his past INR's. His most recent INR was back in March 2020. We are waiting word for transfer/bed. They are deciding if he is going to the ER or the operating room for this procedure. Patient is being transferred to the ER. I discussed case with Dr. Carl in the ER. Blood work did show an elevated INR but he is on a factor Xa inhibitor which will directly do this. Lab Data Labs: Laboratory Results - last 24 hr 02/06/22 02/06/22 02/06/22 14:19 14:19 14:19 WBC 4.7 RBC 4.19 L Hgb 13.7 Hct 39.9 L MCV 95.2 H MCH 32.7 H MCHC 34.3 RDW Std Deviation 44.9 H RDW Coeff of Reji 12.9 Plt Count 148 L MPV 8.2 Immature Gran % (Auto) 0.200 Neut % (Auto) 56.8 Lymph % (Auto) 26.2 [place] % (Auto) 12.5 H Eos % (Auto) 3.2 Baso % (Auto) 1.1 H Absolute Neuts (auto) 2.7 Absolute Lymphs (auto) 1.24 Nucleated RBC % 0 PT 27.1 H INR 2.6 Sodium 140 Potassium 4.3 Chloride 109 H Carbon Dioxide 28.0 Anion Gap 3 L BUN 13 Creatinine 0.88 Estim Creat Clear Calc 92.70 Est GFR (MDRD) Af Amer 113 Est GFR (MDRD) Non-Af 93 BUN/Creatinine Ratio 14.7 Glucose 89 Calcium 8.9 Total Bilirubin 1.60 H AST 38 H ALT 12 L Alkaline Phosphatase 91 Total Protein 6.6 Albumin 2.7 L Globulin 3.9 Albumin/Globulin Ratio 0.7 L Discharge Plan Triage Chief Complaint: Foreign Body ED Provider: Jovanny Herndon Dx/Rx/DC Orders Clinical Impression: Food impaction of esophagus Prescriptions: No Action spironolactone 25 MG tablet 25 mg PO DAILY RF: 0 ascorbic acid (vitamin C) 500 MG tablet 1,000 mg PO DAILY RF: 0 rifaximin 550 MG tablet 550 mg PO BID RF: 0 lactulose 20 GM/30 ML solution 10 gm PO BID RF: 0 metoprolol succinate [Toprol XL] 50 mg Tablet Extended Release 24 Hr 50 mg PO DAILY RF: 0 pantoprazole [Protonix] 40 mg Tablet,Delayed Release (Dr/Ec) 40 mg PO BIDAC RF: 0 vitamin A 10,000 unit Tablet 8,000 mcg PO DAILY RF: 0 Xarelto 20 mg Tablet 20 mg PO QPM RF: 0 potassium chloride 20 mEq Tablet Extended Release 20 meq PO DAILY RF: 0 bumetanide 1 mg Tablet 2 mg PO DAILY RF: 0 nystatin 100,000 unit/gram Powder 1 applic TOPICAL TID RF: 0 acetaminophen 325 MG tablet 500 mg PO Q8H PRN PRN (Reason: Pain Score 1-10/Temp > 100.7 F) RF: 0 Primary Care Provider: Sloan Wood Referrals: Sloan Wood DO [Primary Care Provider] - Disposition Disposition: Acute Care Hospital Discharge Location: [facility]
[2022-02-06 12:27] VITALS: BP 122/82; PULSE 62; RESP 16; O2SAT 96
[2022-02-06 14:05] VITALS: BP 134/84; PULSE 60; RESP 15; O2SAT 97
[2022-02-06 14:25] LABS: Absolute Lymphocyte Count 1.24 X10^3/uL (0.83-4.51); Absolute Neutrophil Count 2.7 X10^3/uL (2.0-7.7); Basophil# 0.05 X10^3/uL; Basophil% 1.1 % (0-1); Eosinophil# 0.15 X10^3/uL; Eosinophils% 3.2 % (0-5); Hematocrit 39.9 % (40-54); Hemoglobin 13.7 g/dL (13.0-16.5); Lymphocyte # 1.24 X10^3/ul (0.83-4.51); Lymphocyte % 26.2 % (19-41); Mean Corp Hgb Conc 34.3 g/dL (32-36); Mean Corpuscular Hgb 32.7 pg (27.0-32.0); Mean Corpuscular Volume 95.2 fL (80-94); Mean Platelet Vol. 8.2 fl (6.2-12.0); Monocyte# 0.59 X10^3/uL; Monocyte% 12.5 % (0-10); NRBC Flagged by Analyzer 0 % (0-5); Neutrophil # 2.69 X10^3/uL (2.7-7.7); Neutrophil % 56.8 % (47-70); Platelet Count 148 K/mm3 (150-450); RBC Distribution Width CV 12.9 % (11.6-14.6); RBC Distribution Width SD 44.9 fl (35.1-43.9); Red Blood Count 4.19 M/mm3 (4.6-6.2); White Blood Count 4.7 K/mm3 (4.4-11.0)
[2022-02-06 14:38] LABS: International Normalized Ratio 2.6; Prothrombin Time (Protime)PT. 27.1 SECONDS (11.7-14.9)
[2022-02-06 14:58] LABS: ALB/GLOB Ratio 0.7 RATIO (0.9-2.4); AST(SGOT) 38 U/L (15-37); Alanine Aminotransfer ALT/SGPT 12 U/L (16-61); Albumin, Serum 2.7 g/dL (3.2-5.0); Alkaline Phosphatase 91 U/L (45-117); Anion Gap 3 (5-15); BUN 13 mg/dL (7-18); BUN/Creat Ratio 14.7 RATIO (10-20); Calcium,Total 8.9 mg/dL (8.5-10.1); Chloride 109 mmol/L (98-107); Creatinine, Serum 0.88 mg/dL (0.70-1.30); EST Glomerular Filtration Rate 93 mL/min (>60); Est Glom Filt Rate - Afr Amer 113 mL/min (>60); Globulin 3.9 g/dL (2.2-4.2); Glucose 89 mg/dL (74-106); Potassium 4.3 mmol/L (3.5-5.1); Protein, Total 6.6 g/dL (6.4-8.2); Sodium Level 140 mmol/L (136-145)
--- NOTE | 2022-02-06 15:58 | ED.RN ---
ATTEMPTED TO CALL REPORT TO [facility] AND WAS PLACED ON HOLD OVER 9 MINUTES. WILL CALL AGAIN. REPORT GIVEN TO GABRIELA.
[2022-02-06 16:00] VITALS: BP 154/95; PULSE 68; RESP 18; O2SAT 98
--- NOTE | 2022-02-06 16:21 | ED.RN ---
ATTEMPTED TO CALL REPORT AN ADDITIONAL TIME AND WAS PLACED ON HOLD THEN WAS HUNG UP ON.
== END 2022-02-06 16:07 | disposition short-term general hospital (02) ==
PROVIDERS: Emergency Provider Emergency Medicine; PCP Student in an Organized Health Care Education/Training Program; Visit Provider Emergency Medicine
DX: T18.128A Food in esophagus causing other injury, initial encounter (principal); I10 Essential (primary) hypertension; G47.33 Obstructive sleep apnea (adult) (pediatric); K21.9 Gastro-esophageal reflux disease without esophagitis; Z86.73 Personal history of transient ischemic attack (TIA), and cerebral infarction without residual deficits; Z79.01 Long term (current) use of anticoagulants; Z79.899 Other long term (current) drug therapy; X58.XXXA Exposure to other specified factors, initial encounter
CPT/HCPCS: 80053; 85025; 85610; 87811; 99285; A4216

== ENCOUNTER 2022-02-11 09:15 | Outpatient (RCR) | payer MEDICARE, MEDICAID, SELFPAY ==
[2022-01-21 10:38] VITALS: BP 167/77; PULSE 71; RESP 16; TEMP 36.7; BMI 42.8
--- NOTE | 2022-01-21 13:19 | PCM.WC.HP ---
History of Present Illness Date of Service: 01/21/22 Chief Complaint: Left Forearm Ulcer History of Wound: Mr Elaine is a 62 yo was referred to the wound center by his primary care physician due to nonhealing left forearm ulcers. Symptoms started months ago. Said to have started with swelling which become subsequently ulcerated. Denies any known precipitating factor. Has tried topical antibiotics and oral antibiotics without any significant improvement. No chills or fever. No prior or similar history in the past. Denies any history of diabetes mellitus. Minimal drainage from the ulcers. At this time, he denies chills, fever or otherwise feeling of unwell. [facility] Medical History (Updated 01/21/22 @ 17:[address] Gene Matos MD) Abscess Ulcer of upper extremity with fat layer exposed Home Medications acetaminophen 650 mg PO Q6H PRN PRN tab 03/25/20 [Rx Last Taken Unknown] ascorbic acid (vitamin C) 1,000 mg PO DAILY 03/25/20 [History Last Taken Unknown] spironolactone 25 mg PO DAILY 03/25/20 [History Last Taken Unknown] rifaximin 550 mg PO BID tab 04/04/20 [Rx Last Taken Unknown] lactulose 10 gm PO BID 01/21/22 [History Last Taken Unknown] metoprolol succinate [Toprol XL] 50 mg PO DAILY 01/21/22 [History Last Taken Unknown] pantoprazole [Protonix] 40 mg PO BIDAC 01/21/22 [History Last Taken Unknown] potassium chloride 20 meq PO DAILY 01/21/22 [History Last Taken Unknown] rivaroxaban [Xarelto] 20 mg PO QPM 01/21/22 [History Last Taken Unknown] vitamin A 8,000 mcg PO DAILY 01/21/22 [History Last Taken Unknown] Allergy/AdvReac Type Severity Reaction Status Date / Time aspirin AdvReac Upset Verified 03/19/20 19:13 Stomach Social History Smoking Status: Never smoker ROS Constitutional Constitutional: Denies fatigue, fever(s), frequent falls, headache(s), increased appetite, lethargy or malaise Eyes Eyes: Denies acute decrease in peripheral vision, blindness, blind spots, change in eye color, change in vision or diplopia ENT HEENT: Denies halitosis, headache(s), hearing loss, mouth pain, nasal congestion, nasal discharge or nasal obstruction Cardiovascular Cardiovascular: Denies chest pain with activity, cold extremities, cyanosis, diaphoresis, dizziness or dyspnea at rest Respiratory/Chest Respiratory/Chest: Denies change in mental status, excessive phlegm production, hemoptysis, hoarseness, inability to speak, pain with cough or shortness of breath at rest Gastrointestinal Gastrointestinal: Denies chewing difficulty, coffee ground emesis, constipation, cramping, dry heaves, dyspepsia or dysphagia Genitourinary Genitourinary: Denies anuria, burning urination, change in urinary stream, flank pain, hematuria, itching or low back pain Musculoskeletal Musculoskeletal: Denies loss of height, muscle cramps, muscle spasms, muscle weakness, myalgias or neck pain Integumentary Integumentary: Reports lesions; Denies change in hair, change in pigmentation, erythema, hirsutism, jaundice, nail changes or non-healing lesions Neurologic Neurologic: Denies burning sensations, confusion, convulsions, disequilibrium, dizziness, focal weakness or frequent falls Psychiatric Psychiatric: Denies cognitive impairment, confusion, depression, difficulty concentrating, mood swings or panic attacks Endocrine Endocrinology: Denies excessive sweating, fatigue, flushing, heat intolerance, increase in ring/shoe/hat size, palpitations or polydipsia Allergic/Immunologic Allergic/Immunologic: Denies tongue swelling, hives, urticaria, eczemia, wheezing or asthma Vital Signs Vital Signs Vital Signs: 01/21/22 10:38 Temperature 98.1 F Temperature Source Temporal Pulse Rate 71 Respiratory Rate 16 Blood Pressure 167/77 H Blood Pressure Mean 107 Blood Pressure Source Monitor Blood Pressure Position Semi-Fowlers Blood Pressure Location Right Arm Weight Weight: 307 lb Body Mass Index (BMI) 42.8 Physical Exam Const alert, oriented x3 and no apparent distress General Appearance: cooperative, comfortable and well kempt HEENT normocephalic, head/scalp atraumatic and hearing grossly normal bilaterally Eyes PERRL and EOMs intact bilaterally General Eye: normal appearance of both eyes Neck full ROM General: normal visual inspection Resp normal respiratory effort and clear to auscultation bilaterally Effort and Inspection: able to speak in complete sentences Cardio regular rate, regular rhythm, S1 normal heart sound and S2 normal heart sound GI soft to palpation and non-tender Extremity full ROM Skin Lesions: lesion noted Wounds: wounds noted Neuro oriented x3, CN's II-XII intact bilaterally and moves all extremities Psych mental status grossly normal Appearance: grossly normal Attitude: calm Speech: normal speech Debridement Note Debridement Note Wound debrided: Left hand cluster Type of Debridement: Excisional debridement Anesthesia Used: 4% Lidocaine Solution Depth: Down to and including healthy tissue and in the subcutaneous layer Percentage of wound debrided: 100 Instrument Used: 3mm curette Tissue Removed: Slough and devitalized tissue Severity: Fat Layer Exposed Amount of bleeding with debridement: Mild Bleeding Controlled with: Pressure Patient tolerated procedure: Patient tolerated procedure well Post-Debridement Measurements and Additional Note: Post-Debridement Measurements/Treatment - Nurse 1 - General Ulcer Assessment Start: 01/21/22 10:36 Freq: Status: Active Protocol: AMANDA Activity Type Activity Date Activity User E-Sign Co-Sign Detail Recorded Client Recorded Date Recorded By Document 01/21/22 10:38 YANET [id number] 01/21/22 10:56 YANET 01/21/22 10:38 - Today's Visit Information Type of service Initial Visit Arrival Mode Ambulatory Accompanied by Patient Identification Verified (Name & Yes ) Patient Requires Transmission-Based No Precautions Height and Weight Height 5 ft 11 in Weight 307 lb Weight in Pounds 307.0 lbs Body Mass Index (BMI) 42.8 BMI Classification Obese BSA - Toño 2.53 Vital Signs Temperature (97.8 F-99.1 F) 98.1 F Temperature Source Temporal Pulse Rate (60-100) 71 Pulse Location Monitor Respiratory Rate (12-18) 16 Respiratory rate source Observation Blood Pressure (90/60-120/80) 167/77 H Blood Pressure Mean 107 Source Monitor Position Semi-Fowlers Blood Pressure Location Right Arm History Since Last Visit- (Skip if this is Patient's initial visit) Left Footwear Regular Shoe Right Footwear Regular Shoe Pain Scale: 0-10 Numeric Is Patient Pain Free? Yes Communication Assessment Preferred language Welsh Communication Instructor Required No Able to Read Yes Able to Write Yes Communication Tools None Caregiver Communication Skills No Impairment Impairment Right Hearing Abillity Hard of Hearing Left Hearing Abillity Normal Visual Assistive Devices Glasses Teaching Assessment Preferences Verbal,Written, Audio/Visual, Demonstration Barriers to Learning None Readiness To Learn Good Willingness to Engage in Self Management Med Activies Readiness to Engage in Self Management Med Activities Anxiety Level Calm Cooperation Cooperative Perception Coherent Interest in Health Problem Asks Questions Education Importance Acknowledges Need Does Patient Smoke tobacco or other No substances Smoking Status Never smoker Is Patient Diabetic No Functional Assessment Recent Decline in Ability to Perform Denies Any Declines Assistive Device With Patient No 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 Clerical Office Worker to contact place of adventist No Teaching: Wound Center [facility] Orientation/ Contacting Physician -Person Taught Patient,Family -Teaching Method Discussion, Demonstration -Response to teaching Return demonstration, Verbalize understanding - Nurse 1 - General Ulcer Measurement Start: 01/21/22 10:36 Freq: Status: Active Protocol: Activity Type Activity Date Activity User E-Sign Co-Sign Detail Recorded Client Recorded Date Recorded By Document 01/21/22 10:38 YANET [id number] 01/21/22 10:56 YANET 01/21/22 10:38 Wound Center Nurse 1 2-left superior FA -Combined with other wound No -Current Size (cm) - Length 0.6 -Current Size (cm) - Width 0.6 -Current Size (cm) - Depth 0.1 -Total Square Cm 0.36 -Photo Taken Yes -Epithelialization Small 1-33% -Tunneling No -Undermining/Tunneling No -Circular Undermining No -Exudate Amt Small -Exudate Type Serosanguineous -Wound Margin Flat & Intact -Granulation Amt Large (67-100%) -Granulation Quality Red -Slough/Fibrin Yes -Necrosis Amt Small (1-33%) -Necrotic Tissue Type Adherent Slough -Structure Exposed N/A -Texture ([place]-wound Skin Appearance) Assessed -Moisture ([place]-wound Skin Appearance) Assessed,Dry/ Scaly -Color ([place]-wound Skin Appearance) Assessed -Temperature ([place]-wound Skin No Abnormality Appearance) (Pt Warm) -Tenderness on Palpation ([place]-wound No Skin Appearance) -Ulcer Cleansing Rinsed/ Irrigated with Saline -Foul Odor after Cleansing No -Anesthetic Used 4% Lidocaine Solution 1-left inferior FA -Combined with other wound No -Current Size (cm) - Length 0.6 -Current Size (cm) - Width 0.8 -Current Size (cm) - Depth 0.2 -Total Square Cm 0.48 -Photo Taken Yes -Epithelialization None Present -Tunneling No -Undermining/Tunneling No -Circular Undermining No -Exudate Type Serosanguineous -Wound Margin Flat & Intact -Granulation Amt Large (67-100%) -Granulation Quality Red -Slough/Fibrin Yes -Necrosis Amt Small (1-33%) -Necrotic Tissue Type Adherent Slough -Structure Exposed N/A -Texture ([place]-wound Skin Appearance) Assessed -Moisture ([place]-wound Skin Appearance) Assessed,Dry/ Scaly -Color ([place]-wound Skin Appearance) Assessed -Temperature ([place]-wound Skin No Abnormality Appearance) (Pt Warm) -Tenderness on Palpation ([place]-wound No Skin Appearance) -Ulcer Cleansing Rinsed/ Irrigated with Saline -Foul Odor after Cleansing No -Anesthetic Used 4% Lidocaine Solution Lower Limb Edema Present Yes Right Calf (cm) 45.2 Right Ankle (cm) 27.1 Left Calf (cm) 47.6 Left Ankle (cm) 28.7 WC - Nurse 2 - General Ulcer CM Notes Start: 01/21/22 10:36 Freq: Status: Active Protocol: Activity Type Activity Date Activity User E-Sign Co-Sign Detail Recorded Client Recorded Date Recorded By Document 01/21/22 11:26 MW [id number] 01/21/22 11:41 MW 01/21/22 11:26 Wound Center Nurse 2 #3 LEFT HAND -Time 11:30 -Correct Patient Yes -Correct Side, Site, Position Yes -Correct Procedure Yes -Procedure Performed Yes -Type of Procedure Debridement -Clinical Debridement Subcutaneous -Tissue Removed Subcutaneous -Post Debridement (cm) - Length 0.8 -Post Debridement (cm) - Width 0.7 -Post Debridement (cm) - Depth 0.1 -Total Square (Post) (cm) 0.56 -Area of Debridement (cm) - Length 0.8 -Area of Debridement (cm) - Width 0.7 -Total Square (Area) (cm) 0.56 -Tunneling No -Undermining/Tunneling No -Circular Undermining No -Wound/Ulcer Outcome Not Healed -Ulcer Cleansing Rinsed/ Irrigated with Saline -Foul Odor after Cleansing No -Bioengineered Tissue No -Bleeding Controlled with Pressure -Treatment Response Procedure Tolerated Well -Offloading No -Debridement - Subq, 1st 20sq cm Yes 2-left superior FA -Time 11:26 -Correct Patient Yes -Correct Side, Site, Position Yes -Correct Procedure Yes -Procedure Performed Yes -Type of Procedure Debridement -Clinical Debridement Subcutaneous -Tissue Removed Subcutaneous -Post Debridement (cm) - Length 0.9 -Post Debridement (cm) - Width 0.8 -Post Debridement (cm) - Depth 0.1 -Total Square (Post) (cm) 0.72 -Area of Debridement (cm) - Length 0.9 -Area of Debridement (cm) - Width 0.8 -Total Square (Area) (cm) 0.72 -Tunneling No -Circular Undermining No -Wound/Ulcer Outcome Not Healed -Ulcer Cleansing Rinsed/ Irrigated with Saline -Foul Odor after Cleansing No -Bioengineered Tissue No -Bleeding Controlled with Pressure -Treatment Response Procedure Tolerated Well -Offloading No -Debridement - Subq, 1st 20sq cm Yes 1-left inferior FA -Time 11:27 -Correct Patient Yes -Correct Side, Site, Position Yes -Correct Procedure Yes -Procedure Performed Yes -Type of Procedure Debridement -Clinical Debridement Subcutaneous -Tissue Removed Subcutaneous -Post Debridement (cm) - Length 0.8 -Post Debridement (cm) - Width 0.7 -Post Debridement (cm) - Depth 0.1 -Total Square (Post) (cm) 0.56 -Area of Debridement (cm) - Length 0.8 -Area of Debridement (cm) - Width 0.7 -Total Square (Area) (cm) 0.56 -Tunneling No -Undermining/Tunneling No -Circular Undermining No -Wound/Ulcer Outcome Not Healed -Ulcer Cleansing Rinsed/ Irrigated with Saline -Foul Odor after Cleansing No -Bioengineered Tissue No -Bleeding Controlled with Pressure -Treatment Response Procedure Tolerated Well -Offloading No -Debridement - Subq, 1st 20sq cm No Pain Scale: 0-10 Numeric Is Patient Pain Free? Yes WC - Nurse 3 - General Ulcer D/C NN Start: 01/21/22 10:36 Freq: Status: Active Protocol: Activity Type Activity Date Activity User E-Sign Co-Sign Detail Recorded Client Recorded Date Recorded By Document 01/21/22 12:06 YANET [id number] 01/21/22 12:07 YANET 01/21/22 12:06 Wound Care Nurse 3 #3 LEFT HAND -Ulcer Cleansing Rinsed/ Irrigated with Saline -Foul Odor after Cleansing No -Primary Dressing Applied NonAdherent Contact Layer, Promogran -Primary Dressing Covered/Secured with Dry Gauze -Promogran 0 2-left superior FA -Ulcer Cleansing Rinsed/ Irrigated with Saline -Foul Odor after Cleansing No -Primary Dressing Applied NonAdherent Contact Layer, Promogran -Primary Dressing Covered/Secured with Dry Gauze -Promogran 0 1-left inferior FA -Ulcer Cleansing Rinsed/ Irrigated with Saline -Foul Odor after Cleansing No -Primary Dressing Applied NonAdherent Contact Layer, Promogran -Primary Dressing Covered/Secured with Dry Gauze -Promogran 1 Right -Tubular Bandage Double Layer -Size of Tubigrip Used Size D -Size D ($) 2 Left -Tubular Bandage Double Layer -Size of Tubigrip Used Size E -Size E ($) 2 Pain Scale: 0-10 Numeric Is Patient Pain Free? Yes WC - Visit Discharge Discharge Condition Stable Ambulatory Status Ambulatory Transportation Private Auto Medication Reconcilliation completed & Yes provided to patient/care provider Clinical Summary of Care Provided Yes Additional Wound Wound debrided: Left forearm inferior Type of Debridement: Excisional debridement Anesthesia Used: 4% Lidocaine Solution Depth: Down to and including healthy tissue and in the subcutaneous layer Percentage of wound debrided: 100 Instrument Used: 3mm curette Tissue Removed: Slough and devitalized tissue Severity: Fat Layer Exposed Amount of bleeding with debridement: Mild Bleeding Controlled with: Pressure Patient tolerated procedure: Patient tolerated procedure well Additional Wound Wound debrided: Left forearm superior Type of Debridement: Excisional debridement Anesthesia Used: 4% Lidocaine Solution Depth: Down to and including healthy tissue and in the subcutaneous layer Percentage of wound debrided: 100 Instrument Used: 5mm curette Tissue Removed: Slough and devitalized tissue Severity: Fat Layer Exposed Amount of bleeding with debridement: Mild Bleeding Controlled with: Pressure Patient tolerated procedure: Patient tolerated procedure well Lab / Micro Data Result Diagrams: 01/21/22 13:06 01/21/22 13:06 Charges/Coding Visit Charges Office Visits / Consults: [id number] OV L4 New Procedures Integumentary [id number]: [id number] Evi subq tissue 20 sq cm/< Assessment/Plan Assessment/Plan (1) Ulcer of upper extremity with fat layer exposed: CODE(S): L98.492 - Non-pressure chronic ulcer of skin of other sites with fat layer exposed (2) Abscess: CODE(S): L02.91 - Cutaneous abscess, unspecified (3) Debility: CODE(S): R53.81 - Other malaise PLAN: 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 Starts out with what looks like an abscess and subsequently opens up. Has been on topical antibiotics and Bactrim in the past without any significant improvement or healing. CMP, CBC, ESR and CRP ordered and reviewed. Normal white count but elevated CRP. ESR is within normal. Debridement done as documented above, procedure was well-tolerated. Cultures taken, defer antibiotic treatment until culture and sensitivity is reviewed. Anticipate at least 2 weeks of antibiotic treatment. For now, Promogran daily with Adaptic. Double layer Tubigrip for edema management. No history of diabetes and normal A1c at 5.1. Increase protein intake, vitamin C, D and zinc discussed. Continue other chronic care management. His questions were answered and he was advised to call with any further questions or concerns. Follow-up in 2 weeks or sooner if needed. This note was generated with [employer] dictation software. It may contain incorrect words, spelling, and punctuation that were not noted in checking the note before signing.
[2022-01-21 13:51] LABS: Hemoglobin A1c 5.1 % (3.8-5.6)
[2022-01-21 13:55] LABS: Erythrocyte Sedimentation Rate 3 mm/hr (0-20)
[2022-01-21 13:57] LABS: Absolute Lymphocyte Count 0.84 X10^3/uL (0.83-4.51); Absolute Neutrophil Count 2.5 X10^3/uL (2.0-7.7); Basophil# 0.04 X10^3/uL; Eosinophil# 0.05 X10^3/uL; Eosinophils% 1.3 % (0-5); Hematocrit 41.4 % (40-54); Hemoglobin 14.3 g/dL (13.0-16.5); Lymphocyte # 0.84 X10^3/ul (0.83-4.51); Lymphocyte % 21.2 % (19-41); Mean Corp Hgb Conc 34.5 g/dL (32-36); Mean Corpuscular Volume 95.6 fL (80-94); Mean Platelet Vol. 8.4 fl (6.2-12.0); Monocyte# 0.54 X10^3/uL; Monocyte% 13.6 % (0-10); NRBC Flagged by Analyzer 0 % (0-5); Neutrophil # 2.48 X10^3/uL (2.7-7.7); Neutrophil % 62.6 % (47-70); Platelet Count 131 K/mm3 (150-450); RBC Distribution Width SD 45.8 fl (35.1-43.9); Red Blood Count 4.33 M/mm3 (4.6-6.2)
[2022-01-21 14:15] LABS: ALB/GLOB Ratio 0.8 RATIO (0.9-2.4); AST(SGOT) 39 U/L (15-37); Alanine Aminotransfer ALT/SGPT 17 U/L (16-61); Albumin, Serum 2.9 g/dL (3.2-5.0); Alkaline Phosphatase 95 U/L (45-117); Anion Gap 1 (5-15); BUN 15 mg/dL (7-18); Calcium,Total 8.4 mg/dL (8.5-10.1); Chloride 108 mmol/L (98-107); Creatinine, Serum 0.94 mg/dL (0.70-1.30); EST Glomerular Filtration Rate 86 mL/min (>60); Est Glom Filt Rate - Afr Amer 105 mL/min (>60); Estimated Creatinine Clearance 86.78 ml/min; Globulin 3.7 g/dL (2.2-4.2); Glucose 125 mg/dL (74-106); Potassium 4.1 mmol/L (3.5-5.1); Protein, Total 6.6 g/dL (6.4-8.2); Sodium Level 138 mmol/L (136-145)
[2022-02-04 09:02] VITALS: BP 139/75; PULSE 75; RESP 16; TEMP 36.3; BMI 42.8
--- NOTE | 2022-02-04 13:05 | PN.PCM_ITS ---
History of Present Illness Date of Service: 02/04/22 Chief Complaint: Left Forearm Ulcer History of Wound: Mr Elaine is a 62 yo was referred to the wound center by his primary care physician due to nonhealing left forearm ulcers. Symptoms started months ago. Said to have started with swelling which become subsequently ulcerated. Denies any known precipitating factor. Has tried topical antibiotics and oral antibiotics without any significant improvement. No chills or fever. No prior or similar history in the past. Denies any history of diabetes mellitus. Minimal drainage from the ulcers. At this time, he denies chills, fever or otherwise feeling of unwell. Progress of Wound: Improved. No new concerns at this time. Superior forearm is healed Objective Data Objective Data Vital Signs: Vital Signs Temp Pulse Resp BP 97.3 F L 75 16 139/75 H 02/04/22 09:02 02/04/22 09:02 02/04/22 09:02 02/04/22 09:02 Oxygen Delivery Method Room Air Weight: 307 lb Body Mass Index (BMI) 42.8 Lab / Micro Data Result Diagrams: 01/21/22 13:06 01/21/22 13:06 Micro: Microbiology 01/21/22 11:35 Wound Abcess - Arm Gram Stain - Final 01/21/22 11:35 Wound Abcess - Arm Wound Culture - Final No growth aerobically. 01/21/22 11:35 Wound Abcess - Arm Anaerobic Culture - Final No growth in 5 days. Charges/Coding Procedures Integumentary 111xxx-113xx: [id number] Evi subq tissue 20 sq cm/< Physical Exam Const alert, oriented x3 and no apparent distress General Appearance: cooperative, comfortable and well kempt HEENT normocephalic, head/scalp atraumatic and hearing grossly normal bilaterally Eyes PERRL and EOMs intact bilaterally General Eye: normal appearance of both eyes Neck full ROM General: normal visual inspection Resp normal respiratory effort and clear to auscultation bilaterally Effort and Inspection: able to speak in complete sentences Cardio regular rate, regular rhythm, S1 normal heart sound and S2 normal heart sound GI soft to palpation and non-tender Extremity full ROM Skin Lesions: lesion noted Wounds: wounds noted Neuro oriented x3, CN's II-XII intact bilaterally and moves all extremities Psych mental status grossly normal Appearance: grossly normal Attitude: calm Speech: normal speech Debridement Note Debridement Note Wound debrided: Left hand Type of Debridement: Excisional debridement Anesthesia Used: 4% Lidocaine Solution Depth: Down to and including healthy tissue and in the subcutaneous layer Percentage of wound debrided: 100 Instrument Used: 3mm curette Tissue Removed: Slough and devitalized tissue Severity: Fat Layer Exposed Amount of bleeding with debridement: Mild Bleeding Controlled with: Pressure Patient tolerated procedure: Patient tolerated procedure well Post-Debridement Measurements and Additional Note: Post-Debridement Measurements/Treatment - Nurse 1 - General Ulcer Assessment Start: 01/21/22 10:36 Freq: Status: Active Protocol: LISA.LOWLUANT Activity Type Activity Date Activity User E-Sign Co-Sign Detail Recorded Client Recorded Date Recorded By Document 01/21/22 10:38 [id number] 01/21/22 10:56 Document 02/04/22 09:02 [facility] [id number] 02/04/22 09:13 [facility] 01/21/22 02/04/22 10:38 09:02 - Today's Visit Information Type of service Initial Visit Follow-up 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 ) Arrival Mode Ambulatory Ambulatory Transfer Assistance None Accompanied by Patient Identification Verified (Name & Yes Yes ) Patient Requires Transmission-Based No No Precautions Height and Weight Height 5 ft 11 in Weight 307 lb Weight in Pounds 307.0 lbs Body Mass Index (BMI) 42.8 42.8 BMI Classification Obese Obese BSA - Toño 2.53 Vital Signs Temperature (97.8 F-99.1 F) 98.1 F 97.3 F L Temperature Source Temporal Temporal Pulse Rate (60-100) 71 75 Pulse Location Monitor Monitor Respiratory Rate (12-18) 16 16 Respiratory rate source Observation Observation Oxygen Delivery Method Room Air Blood Pressure (90/60-120/80) 167/77 H 139/75 H Blood Pressure Mean (mm Hg) 107 96 Source Monitor Monitor Position Semi-Fowlers Sitting Blood Pressure Location Right Arm Right Arm Have you changed medications since your No last visit? Any new allergies or adverse reactions No Had a fall/change in ADL's that may No increase risk of falls Signs or symptoms of abuse and/or No neglect since last visit Have you been in the hospital since your No last visit? Has dressing in place as prescribed Yes Has compression in place as prescribed N/A Has offloadiing in place as prescribed N/A Experienced any changes in pain level or No management History Since Last Visit- (Skip if this is Patient's initial visit) Left Footwear Regular Shoe Regular Shoe Right Footwear Regular Shoe Regular Shoe Pain Scale: 0-10 Numeric Is Patient Pain Free? Yes Yes Communication Assessment Preferred language [place] Residential Therapist Required No Able to Read Yes Able to Write Yes Communication Tools None Caregiver Communication Skills No Impairment Impairment Right Hearing Abillity Hard of Hearing Left Hearing Abillity Normal Visual Assistive Devices Glasses Teaching Assessment Preferences Verbal,Written, Audio/Visual, Demonstration Barriers to Learning None Readiness To Learn Good Willingness to Engage in Self Management Med Activies Readiness to Engage in Self Management Med Activities Anxiety Level Calm Cooperation Cooperative Perception Coherent Interest in Health Problem Asks Questions Education Importance Acknowledges Need Does Patient Smoke tobacco or other No substances Smoking Status Never smoker Is Patient Diabetic No Functional Assessment Recent Decline in Ability to Perform Denies Any Declines Assistive Device With Patient No Culture/Sabianist/Voice Intercept Technician Cultural/Sabianist Needs that may affect No Treatment Plan Would you allow our hospital cemetery laborer to No meet you for the purpose of spiritual/ emotional support? Voice Intercept Technician to contact place of muslim No Teaching: Wound Center [facility] Orientation/ Contacting Physician -Person Taught Patient,Family -Teaching Method Discussion, Demonstration -Response to teaching Return demonstration, Verbalize understanding [facility] Nurse 1 - General Ulcer Measurement Start: 01/21/22 10:36 Freq: Status: Active Protocol: Activity Type Activity Date Activity User E-Sign Co-Sign Detail Recorded Client Recorded Date Recorded By Document 01/21/22 10:38 [id number] 01/21/22 10:56 Document 02/04/22 09:02 [facility] [id number] 02/04/22 09:13 [facility] 01/21/22 02/04/22 10:38 09:02 Wound Center Nurse 1 #3 LEFT HAND -Combined with other wound No -Current Size (cm) - Length 0.6 -Current Size (cm) - Width 0.8 -Current Size (cm) - Depth 0.2 -Total Square Cm 0.48 -Date of Last Picture (Recall this 02/04/22 field) -Photo Taken Yes -Epithelialization Small 1-33% -Tunneling No -Undermining/Tunneling No -Circular Undermining No -Exudate Amt Small -Exudate Type Serous -Wound Margin Distinct, Outline Attached -Granulation Amt Large (67-100%) -Granulation Quality Red -Slough/Fibrin Yes -Necrosis Amt Small (1-33%) -Necrotic Tissue Type Adherent Slough -Texture ([place]-wound Skin Appearance) Assessed, Scarring -Moisture ([place]-wound Skin Appearance) Assessed -Color ([place]-wound Skin Appearance) Assessed -Temperature ([place]-wound Skin No Abnormality Appearance) (Pt Warm) -Tenderness on Palpation ([place]-wound No Skin Appearance) -Ulcer Cleansing Rinsed/ Irrigated with Saline -Foul Odor after Cleansing No -Anesthetic Used 4% Lidocaine Solution 2-left superior FA -Combined with other wound No No -Current Size (cm) - Length 0.6 0.1 -Current Size (cm) - Width 0.6 0.1 -Current Size (cm) - Depth 0.1 0.1 -Total Square Cm 0.36 0.01 -Date of Last Picture (Recall this 02/04/22 field) -Photo Taken Yes Yes -Epithelialization Small 1-33% Large 67-100% -Tunneling No -Undermining/Tunneling No -Circular Undermining No -Exudate Amt Small -Exudate Type Serosanguineous -Wound Margin Flat & Intact -Granulation Amt Large (67-100%) -Granulation Quality Red -Slough/Fibrin Yes -Necrosis Amt Small (1-33%) -Necrotic Tissue Type Adherent Slough -Structure Exposed N/A -Texture ([place]-wound Skin Appearance) Assessed -Moisture ([place]-wound Skin Appearance) Assessed,Dry/ Scaly -Color ([place]-wound Skin Appearance) Assessed -Temperature ([place]-wound Skin No Abnormality Appearance) (Pt Warm) -Tenderness on Palpation ([place]-wound No Skin Appearance) -Ulcer Cleansing Rinsed/ Irrigated with Saline -Foul Odor after Cleansing No -Anesthetic Used 4% Lidocaine Solution 1-left inferior FA -Combined with other wound No No -Current Size (cm) - Length 0.6 0.1 -Current Size (cm) - Width 0.8 0.1 -Current Size (cm) - Depth 0.2 0.1 -Total Square Cm 0.48 0.01 -Date of Last Picture (Recall this 02/04/22 field) -Photo Taken Yes Yes -Epithelialization None Present Large 67-100% -Tunneling No -Undermining/Tunneling No -Circular Undermining No -Exudate Type Serosanguineous -Wound Margin Flat & Intact -Granulation Amt Large (67-100%) -Granulation Quality Red -Slough/Fibrin Yes -Necrosis Amt Small (1-33%) -Necrotic Tissue Type Adherent Slough -Structure Exposed N/A -Texture ([place]-wound Skin Appearance) Assessed -Moisture ([place]-wound Skin Appearance) Assessed,Dry/ Scaly -Color ([place]-wound Skin Appearance) Assessed -Temperature ([place]-wound Skin No Abnormality Appearance) (Pt Warm) -Tenderness on Palpation ([place]-wound No Skin Appearance) -Ulcer Cleansing Rinsed/ Irrigated with Saline -Foul Odor after Cleansing No -Anesthetic Used 4% Lidocaine Solution Lower Limb Edema Present Yes Right Calf (cm) 45.2 Right Ankle (cm) 27.1 Left Calf (cm) 47.6 Left Ankle (cm) 28.7 WC - Nurse 2 - General Ulcer CM Notes Start: 01/21/22 10:36 Freq: Status: Active Protocol: Activity Type Activity Date Activity User E-Sign Co-Sign Detail Recorded Client Recorded Date Recorded By Document 01/21/22 11:26 MW [id number] 01/21/22 11:41 MW Edit Result 01/21/22 11:26 MW (1) [id number] 01/22/22 06:57 PL Document 02/04/22 09:43 MW [id number] 02/04/22 09:49 MW (1) 2-left superior FA - Debridement - Subq, 1st 20sq cm Yes => No 01/21/22 02/04/22 11:26 09:43 Wound Center Nurse 2 #3 LEFT HAND -Time 11:30 09:45 -Correct Patient Yes Yes -Correct Side, Site, Position Yes Yes -Correct Procedure Yes Yes -Procedure Performed Yes Yes -Type of Procedure Debridement Debridement -Clinical Debridement Subcutaneous Subcutaneous -Tissue Removed Subcutaneous Subcutaneous -Post Debridement (cm) - Length 0.8 0.9 -Post Debridement (cm) - Width 0.7 0.6 -Post Debridement (cm) - Depth 0.1 0.1 -Total Square (Post) (cm) 0.56 0.54 -Area of Debridement (cm) - Length 0.8 0.9 -Area of Debridement (cm) - Width 0.7 0.6 -Total Square (Area) (cm) 0.56 0.54 -Tunneling No No -Undermining/Tunneling No No -Circular Undermining No No -Wound/Ulcer Outcome Not Healed Not Healed -Ulcer Cleansing Rinsed/ Rinsed/ Irrigated with Irrigated with Saline Saline -Foul Odor after Cleansing No No -Bioengineered Tissue No No -Bleeding Controlled with Pressure Pressure -Treatment Response Procedure Procedure Tolerated Well Tolerated Well -Offloading No No -Debridement - Subq, 1st 20sq cm Yes Yes 2-left superior FA -Time : 09:44 -Correct Patient Yes Yes -Correct Side, Site, Position Yes Yes -Correct Procedure Yes Yes -Procedure Performed Yes No -Type of Procedure Debridement -Clinical Debridement Subcutaneous -Tissue Removed Subcutaneous -Post Debridement (cm) - Length 0.9 0.1 -Post Debridement (cm) - Width 0.8 0.1 -Post Debridement (cm) - Depth 0.1 0.1 -Total Square (Post) (cm) 0.72 0.01 -Area of Debridement (cm) - Length 0.9 -Area of Debridement (cm) - Width 0.8 -Total Square (Area) (cm) 0.72 -Tunneling No No -Undermining/Tunneling No -Circular Undermining No No -Wound/Ulcer Outcome Not Healed Not Healed -Ulcer Cleansing Rinsed/ Irrigated with Saline -Foul Odor after Cleansing No -Bioengineered Tissue No -Bleeding Controlled with Pressure -Treatment Response Procedure Tolerated Well -Offloading No -Debridement - Subq, 1st 20sq cm No 1-left inferior FA -Time : 09:44 -Correct Patient Yes Yes -Correct Side, Site, Position Yes Yes -Correct Procedure Yes Yes -Procedure Performed Yes No -Type of Procedure Debridement -Clinical Debridement Subcutaneous -Tissue Removed Subcutaneous -Post Debridement (cm) - Length 0.8 0.1 -Post Debridement (cm) - Width 0.7 0.1 -Post Debridement (cm) - Depth 0.1 0.1 -Total Square (Post) (cm) 0.56 0.01 -Area of Debridement (cm) - Length 0.8 -Area of Debridement (cm) - Width 0.7 -Total Square (Area) (cm) 0.56 -Tunneling No -Undermining/Tunneling No -Circular Undermining No -Wound/Ulcer Outcome Not Healed Not Healed -Ulcer Cleansing Rinsed/ Irrigated with Saline -Foul Odor after Cleansing No -Bioengineered Tissue No -Bleeding Controlled with Pressure -Treatment Response Procedure Tolerated Well -Offloading No -Debridement - Subq, 1st 20sq cm No Pain Scale: 0-10 Numeric Is Patient Pain Free? Yes Yes WC - Nurse 3 - General Ulcer D/C NN Start: 01/21/22 10:36 Freq: Status: Active Protocol: Activity Type Activity Date Activity User E-Sign Co-Sign Detail Recorded Client Recorded Date Recorded By Document 01/21/22 12:06 [id number] 01/21/22 12:07 Document 02/04/22 10:05 [facility] [id number] 02/04/22 10:06 [facility] 01/21/22 02/04/22 12:06 10:05 Wound Care Nurse 3 #3 LEFT HAND -Ulcer Cleansing Rinsed/ Rinsed/ Irrigated with Irrigated with Saline Saline -Foul Odor after Cleansing No No -Primary Dressing Applied NonAdherent NonAdherent Contact Layer, Contact Layer, Promogran Promogran -Primary Dressing Covered/Secured with Dry Gauze Dry Gauze & Roll Gauze, Other -Other Covering SECURED W/ [place] PER PT REQUEST -Promogran 0 1 2-left superior FA -Ulcer Cleansing Rinsed/ Rinsed/ Irrigated with Irrigated with Saline Saline -Foul Odor after Cleansing No No -Primary Dressing Applied NonAdherent NonAdherent Contact Layer, Contact Layer Promogran -Primary Dressing Covered/Secured with Dry Gauze Dry Gauze & Roll Gauze, Other -Other Covering SECURED W/ [place] -Promogran 0 1-left inferior FA -Ulcer Cleansing Rinsed/ Rinsed/ Irrigated with Irrigated with Saline Saline -Foul Odor after Cleansing No No -Primary Dressing Applied NonAdherent NonAdherent Contact Layer, Contact Layer, Promogran Promogran -Primary Dressing Covered/Secured with Dry Gauze Dry Gauze & Roll Gauze, Other -Other Covering SECURED W/ [place] -Promogran 1 0 Right -Tubular Bandage Double Layer Double Layer -Size of Tubigrip Used Size D Size E -Size D ($) 2 -Size E ($) 1 Left -Tubular Bandage Double Layer Double Layer -Size of Tubigrip Used Size E Size E -Size E ($) 2 1 Treatment Response Procedure Tolerated Well Pain Scale: 0-10 Numeric Is Patient Pain Free? Yes Yes WC - Visit Discharge Discharge Condition Stable Stable Ambulatory Status Ambulatory Ambulatory Transportation Private Auto Private Auto Accompanied by Medication Reconcilliation completed & Yes provided to patient/care provider Clinical Summary of Care Provided Yes Additional Wound Wound debrided: Left forearm (inferior) Type of Debridement: Excisional debridement Anesthesia Used: 4% Lidocaine Solution Depth: Down to and including healthy tissue Instrument Used: 3mm curette Tissue Removed: Slough and devitalized tissue Severity: Fat Layer Exposed Amount of bleeding with debridement: Mild Bleeding Controlled with: Pressure Patient tolerated procedure: Patient tolerated procedure well Assessment/Plan Assessment/Plan (1) Ulcer of upper extremity with fat layer exposed: CODE(S): L98.492 - Non-pressure chronic ulcer of skin of other sites with fat layer exposed (2) Abscess: CODE(S): L02.91 - Cutaneous abscess, unspecified (3) Debility: CODE(S): R53.81 - Other malaise PLAN: Has made significant improvement since his last visit. Superior forearm ulcer is healed and inferior and hand ulcers are improving. Culture with no growth. We will hold off antibiotic treatment despite some elevated CRP. Continue Promogran daily with Adaptic. Double layer Tubigrip for edema management. No history of diabetes and normal A1c at 5.1. Increase protein intake, vitamin C, D and zinc discussed. Continue other chronic care manageme nt. His questions were answered and he was advised to call with any further questions or concerns. Follow-up in 1 week. This note was generated with [employer] dictation software. It may contain incorrect words, spelling, and punctuation that were not noted in checking the note before signing.
[2022-02-11 09:02] VITALS: BP 143/62; PULSE 66; RESP 16; TEMP 36.4; BMI 42.8
--- NOTE | 2022-02-11 09:45 | PCM.WC.PN ---
History of Present Illness Date of Service: 02/11/22 Chief Complaint: Left Forearm Ulcer History of Wound: Mr Elaine is a 62 yo was referred to the wound center by his primary care physician due to nonhealing left forearm ulcers. Symptoms started months ago. Said to have started with swelling which become subsequently ulcerated. Denies any known precipitating factor. Has tried topical antibiotics and oral antibiotics without any significant improvement. No chills or fever. No prior or similar history in the past. Denies any history of diabetes mellitus. Minimal drainage from the ulcers. At this time, he denies chills, fever or otherwise feeling of unwell. Progress of Wound: Superior forearm stays healed however inferior forearm and hand ulcers with some regression. He feels well at this time. Objective Data Objective Data Vital Signs: Vital Signs Temp Pulse Resp BP 97.6 F L 66 16 143/62 H 02/11/22 09:02 02/11/22 09:02 02/11/22 09:02 02/11/22 09:02 Oxygen Delivery Method Room Air Weight: 307 lb Body Mass Index (BMI) 42.8 Lab / Micro Data Result Diagrams: 01/21/22 13:06 01/21/22 13:06 Micro: Microbiology 01/21/22 11:35 Wound Abcess - Arm Gram Stain - Final 01/21/22 11:35 Wound Abcess - Arm Wound Culture - Final No growth aerobically. 01/21/22 11:35 Wound Abcess - Arm Anaerobic Culture - Final No growth in 5 days. Charges/Coding Procedures Integumentary 111xxx-113xx: [id number] Evi subq tissue 20 sq cm/< Physical Exam Const alert, oriented x3 and no apparent distress General Appearance: cooperative, comfortable and well kempt HEENT normocephalic, head/scalp atraumatic and hearing grossly normal bilaterally Eyes PERRL and EOMs intact bilaterally General Eye: normal appearance of both eyes Neck full ROM General: normal visual inspection Resp normal respiratory effort and clear to auscultation bilaterally Effort and Inspection: able to speak in complete sentences Cardio regular rate, regular rhythm, S1 normal heart sound and S2 normal heart sound GI soft to palpation and non-tender Extremity full ROM Skin Lesions: lesion noted Wounds: wounds noted Neuro oriented x3, CN's II-XII intact bilaterally and moves all extremities Psych mental status grossly normal Appearance: grossly normal Attitude: calm Speech: normal speech Debridement Note Debridement Note Wound debrided: Left Hand Type of Debridement: Excisional debridement Anesthesia Used: 4% Lidocaine Solution Depth: Down to and including healthy tissue and in the subcutaneous layer Percentage of wound debrided: 100 Instrument Used: 3mm curette Tissue Removed: Slough and devitalized tissue Severity: Fat Layer Exposed Amount of bleeding with debridement: Mild Bleeding Controlled with: Pressure Patient tolerated procedure: Patient tolerated procedure well Post-Debridement Measurements and Additional Note: Post-Debridement Measurements/Treatment - Nurse 1 - General Ulcer Assessment Start: 01/21/22 10:36 Freq: Status: Active Protocol: AMANDA Activity Type Activity Date Activity User E-Sign Co-Sign Detail Recorded Client Recorded Date Recorded By Document 01/21/22 10:38 [id number] 01/21/22 10:56 Document 02/04/22 09:02 [facility] [id number] 02/04/22 09:13 [facility] Document 02/11/22 09:02 [facility] [id number] 02/11/22 09:06 [facility] 01/21/22 02/04/22 02/11/22 10:38 09:02 09:02 - Today's Visit Information Type of service Initial Visit Follow-up Visit Follow-up Visit (Physician/MINERAL TECHNOLOGIST (Physician/MINERAL TECHNOLOGIST ) ) Arrival Mode Ambulatory Ambulatory Ambulatory Transfer Assistance None None Accompanied by Patient Identification Verified (Name & Yes Yes Yes ) Patient Requires Transmission-Based No No No Precautions Height and Weight Height 5 ft 11 in Weight 307 lb Weight in Pounds 307.0 lbs Body Mass Index (BMI) 42.8 42.8 42.8 BMI Classification Obese Obese Obese BSA - Toño 2.53 Vital Signs Temperature (97.8 F-99.1 F) 98.1 F 97.3 F L 97.6 F L Temperature Source Temporal Temporal Temporal Pulse Rate (60-100) 71 75 66 Pulse Location Monitor Monitor Monitor Respiratory Rate (12-18) 16 16 16 Respiratory rate source Observation Observation Observation Oxygen Delivery Method Room Air Room Air Blood Pressure (90/60-120/80) 167/77 H 139/75 H 143/62 H Blood Pressure Mean (mm Hg) 107 96 89 Source Monitor Monitor Monitor Position Semi-Fowlers Sitting Sitting Blood Pressure Location Right Arm Right Arm Left Arm Have you changed medications since your No No last visit? Any new allergies or adverse reactions No No Had a fall/change in ADL's that may No No increase risk of falls Signs or symptoms of abuse and/or No No neglect since last visit Have you been in the hospital since your No Yes last visit? Has dressing in place as prescribed Yes Yes Has compression in place as prescribed N/A N/A Has offloadiing in place as prescribed N/A N/A Experienced any changes in pain level or No No management History Since Last Visit- (Skip if this is Patient's initial visit) Left Footwear Regular Shoe Regular Shoe Regular Shoe Right Footwear Regular Shoe Regular Shoe Regular Shoe Pain Scale: 0-10 Numeric Is Patient Pain Free? Yes Yes Yes Communication Assessment Preferred language Citizen Of [place] Grade Recorder Required No Able to Read Yes Able to Write Yes Communication Tools None Caregiver Communication Skills No Impairment Impairment Right Hearing Abillity Hard of Hearing Left Hearing Abillity Normal Visual Assistive Devices Glasses Teaching Assessment Preferences Verbal,Written, Audio/Visual, Demonstration Barriers to Learning None Readiness To Learn Good Willingness to Engage in Self Management Med Activies Readiness to Engage in Self Management Med Activities Anxiety Level Calm Cooperation Cooperative Perception Coherent Interest in Health Problem Asks Questions Education Importance Acknowledges Need Does Patient Smoke tobacco or other No substances Smoking Status Never smoker Is Patient Diabetic No Functional Assessment Recent Decline in Ability to Perform Denies Any Declines Assistive Device With Patient No Culture/Caodaism/Excellence Consultant Cultural/Caodaism Needs that may affect No Treatment Plan Would you allow our hospital health services rn to No meet you for the purpose of spiritual/ emotional support? Excellence Consultant to contact place of scientologist No Teaching: Wound Center [facility] Orientation/ Contacting Physician -Person Taught Patient,Family -Teaching Method Discussion, Demonstration -Response to teaching Return demonstration, Verbalize understanding [facility] Nurse 1 - General Ulcer Measurement Start: 01/21/22 10:36 Freq: Status: Active Protocol: Activity Type Activity Date Activity User E-Sign Co-Sign Detail Recorded Client Recorded Date Recorded By Document 01/21/22 10:38 [id number] 01/21/22 10:56 Document 02/04/22 09:02 [facility] [id number] 02/04/22 09:13 [facility] Document 02/11/22 09:02 [facility] [id number] 02/11/22 09:06 [facility] 01/21/22 02/04/22 02/11/22 10:38 09:02 09:02 Wound Center Nurse 1 #3 LEFT HAND -Combined with other wound No No -Current Size (cm) - Length 0.6 1 -Current Size (cm) - Width 0.8 0.8 -Current Size (cm) - Depth 0.2 0.1 -Total Square Cm 0.48 0.8 -Date of Last Picture (Recall this 02/04/22 field) -Photo Taken Yes No -Epithelialization Small 1-33% Small 1-33% -Tunneling No No -Undermining/Tunneling No No -Circular Undermining No No -Exudate Amt Small Small -Exudate Type Serous Serosanguineous -Wound Margin Distinct, Distinct, Outline Outline Attached Attached -Granulation Amt Large (67-100%) Large (67-100%) -Granulation Quality Red Red -Slough/Fibrin Yes Yes -Necrosis Amt Small (1-33%) Small (1-33%) -Necrotic Tissue Type Adherent Slough Eschar -Texture ([place]-wound Skin Appearance) Assessed, Assessed, Scarring Scarring -Moisture ([place]-wound Skin Appearance) Assessed Assessed -Color ([place]-wound Skin Appearance) Assessed Assessed -Temperature ([place]-wound Skin No Abnormality No Abnormality Appearance) (Pt Warm) (Pt Warm) -Tenderness on Palpation ([place]-wound No No Skin Appearance) -Ulcer Cleansing Rinsed/ Rinsed/ Irrigated with Irrigated with Saline Saline -Foul Odor after Cleansing No No -Anesthetic Used 4% Lidocaine 5% Lidocaine Solution Gel 2-left superior FA -Combined with other wound No No No -Current Size (cm) - Length 0.6 0.1 0.2 -Current Size (cm) - Width 0.6 0.1 0.2 -Current Size (cm) - Depth 0.1 0.1 0.1 -Total Square Cm 0.36 0.01 0.04 -Date of Last Picture (Recall this 02/04/22 field) -Photo Taken Yes Yes No -Epithelialization Small 1-33% Large 67-100% None Present -Tunneling No No -Undermining/Tunneling No No -Circular Undermining No No -Exudate Amt Small Small -Exudate Type Serosanguineous Serosanguineous -Wound Margin Flat & Intact Distinct, Outline Attached -Granulation Amt Large (67-100%) Large (67-100%) -Granulation Quality Red Red -Slough/Fibrin Yes Yes -Necrosis Amt Small (1-33%) Small (1-33%) -Necrotic Tissue Type Adherent Slough Adherent Slough -Structure Exposed N/A -Texture ([place]-wound Skin Appearance) Assessed Assessed, Scarring -Moisture ([place]-wound Skin Appearance) Assessed,Dry/ Assessed Scaly -Color ([place]-wound Skin Appearance) Assessed Assessed -Temperature ([place]-wound Skin No Abnormality No Abnormality Appearance) (Pt Warm) (Pt Warm) -Tenderness on Palpation ([place]-wound No No Skin Appearance) -Ulcer Cleansing Rinsed/ Rinsed/ Irrigated with Irrigated with Saline Saline -Foul Odor after Cleansing No No -Anesthetic Used 4% Lidocaine 5% Lidocaine Solution Gel 1-left inferior FA -Combined with other wound No No No -Current Size (cm) - Length 0.6 0.1 0.3 -Current Size (cm) - Width 0.8 0.1 0.5 -Current Size (cm) - Depth 0.2 0.1 0.1 -Total Square Cm 0.48 0.01 0.15 -Date of Last Picture (Recall this 02/04/22 field) -Photo Taken Yes Yes No -Epithelialization None Present Large 67-100% None Present -Tunneling No No -Undermining/Tunneling No No -Circular Undermining No No -Exudate Amt Small -Exudate Type Serosanguineous Serosanguineous -Wound Margin Flat & Intact Distinct, Outline Attached -Granulation Amt Large (67-100%) Large (67-100%) -Granulation Quality Red Red -Slough/Fibrin Yes Yes -Necrosis Amt Small (1-33%) Small (1-33%) -Necrotic Tissue Type Adherent Slough Adherent Slough -Structure Exposed N/A -Texture ([place]-wound Skin Appearance) Assessed Assessed, Scarring -Moisture ([place]-wound Skin Appearance) Assessed,Dry/ Assessed Scaly -Color ([place]-wound Skin Appearance) Assessed Assessed -Temperature ([place]-wound Skin No Abnormality No Abnormality Appearance) (Pt Warm) (Pt Warm) -Tenderness on Palpation ([place]-wound No No Skin Appearance) -Ulcer Cleansing Rinsed/ Rinsed/ Irrigated with Irrigated with Saline Saline -Foul Odor after Cleansing No No -Anesthetic Used 4% Lidocaine 5% Lidocaine Solution Gel Lower Limb Edema Present Yes Right Calf (cm) 45.2 Right Ankle (cm) 27.1 Left Calf (cm) 47.6 Left Ankle (cm) 28.7 WC - Nurse 2 - General Ulcer CM Notes Start: 01/21/22 10:36 Freq: Status: Active Protocol: Activity Type Activity Date Activity User E-Sign Co-Sign Detail Recorded Client Recorded Date Recorded By Document 01/21/22 11:26 MW [id number] 01/21/22 11:41 MW Edit Result 01/21/22 11:26 MW (1) [id number] 01/22/22 06:57 PL Document 02/04/22 09:43 MW [id number] 02/04/22 09:49 MW Document 02/11/22 09:28 MW [id number] 02/11/22 09:36 MW (1) 2-left superior FA - Debridement - Subq, 1st 20sq cm Yes => No 01/21/22 02/04/22 02/11/22 11:26 09:43 09:28 Wound Center Nurse 2 #3 LEFT HAND -Time 11:30 09:45 09:29 -Correct Patient Yes Yes Yes -Correct Side, Site, Position Yes Yes Yes -Correct Procedure Yes Yes Yes -Procedure Performed Yes Yes Yes -Type of Procedure Debridement Debridement Debridement -Clinical Debridement Subcutaneous Subcutaneous Subcutaneous -Tissue Removed Subcutaneous Subcutaneous Subcutaneous -Post Debridement (cm) - Length 0.8 0.9 0.9 -Post Debridement (cm) - Width 0.7 0.6 0.7 -Post Debridement (cm) - Depth 0.1 0.1 0.1 -Total Square (Post) (cm) 0.56 0.54 0.63 -Area of Debridement (cm) - Length 0.8 0.9 0.9 -Area of Debridement (cm) - Width 0.7 0.6 0.7 -Total Square (Area) (cm) 0.56 0.54 0.63 -Tunneling No No No -Undermining/Tunneling No No No -Circular Undermining No No No -Wound/Ulcer Outcome Not Healed Not Healed Not Healed -Ulcer Cleansing Rinsed/ Rinsed/ Rinsed/ Irrigated with Irrigated with Irrigated with Saline Saline Saline -Foul Odor after Cleansing No No No -Bioengineered Tissue No No No -Bleeding Controlled with Pressure Pressure Pressure -Treatment Response Procedure Procedure Procedure Tolerated Well Tolerated Well Tolerated Well -Offloading No No No -Debridement - Subq, 1st 20sq cm Yes Yes Yes 2-left superior FA -Time 11:26 09:44 09:29 -Correct Patient Yes Yes Yes -Correct Side, Site, Position Yes Yes Yes -Correct Procedure Yes Yes No -Procedure Performed Yes No -Type of Procedure Debridement -Clinical Debridement Subcutaneous -Tissue Removed Subcutaneous -Post Debridement (cm) - Length 0.9 0.1 0 -Post Debridement (cm) - Width 0.8 0.1 0 -Post Debridement (cm) - Depth 0.1 0.1 0 -Total Square (Post) (cm) 0.72 0.01 0 -Area of Debridement (cm) - Length 0.9 -Area of Debridement (cm) - Width 0.8 -Total Square (Area) (cm) 0.72 -Tunneling No No No -Undermining/Tunneling No No -Circular Undermining No No No -Wound/Ulcer Outcome Not Healed Not Healed Healed- Epithelialized -Ulcer Cleansing Rinsed/ Irrigated with Saline -Foul Odor after Cleansing No -Bioengineered Tissue No -Bleeding Controlled with Pressure -Treatment Response Procedure Tolerated Well -Offloading No -Debridement - Subq, 1st 20sq cm No 1-left inferior FA -Time 11:27 09:44 09:30 -Correct Patient Yes Yes Yes -Correct Side, Site, Position Yes Yes Yes -Correct Procedure Yes Yes Yes -Procedure Performed Yes No Yes -Type of Procedure Debridement Debridement -Clinical Debridement Subcutaneous Subcutaneous -Tissue Removed Subcutaneous Subcutaneous -Post Debridement (cm) - Length 0.8 0.1 0.3 -Post Debridement (cm) - Width 0.7 0.1 0.8 -Post Debridement (cm) - Depth 0.1 0.1 0.1 -Total Square (Post) (cm) 0.56 0.01 0.24 -Area of Debridement (cm) - Length 0.8 0.3 -Area of Debridement (cm) - Width 0.7 0.8 -Total Square (Area) (cm) 0.56 0.24 -Tunneling No No -Undermining/Tunneling No No -Circular Undermining No No -Wound/Ulcer Outcome Not Healed Not Healed Not Healed -Ulcer Cleansing Rinsed/ Rinsed/ Irrigated with Irrigated with Saline Saline -Foul Odor after Cleansing No No -Bioengineered Tissue No No -Bleeding Controlled with Pressure Pressure -Treatment Response Procedure Procedure Tolerated Well Tolerated Well -Offloading No No -Debridement - Subq, 1st 20sq cm No No Pain Scale: 0-10 Numeric Is Patient Pain Free? Yes Yes Yes WC - Nurse 3 - General Ulcer D/C NN Start: 01/21/22 10:36 Freq: Status: Active Protocol: Activity Type Activity Date Activity User E-Sign Co-Sign Detail Recorded Client Recorded Date Recorded By Document 01/21/22 12:06 [id number] 01/21/22 12:07 Document 02/04/22 10:05 [facility] [id number] 02/04/22 10:06 [facility] 01/21/22 02/04/22 12:06 10:05 Wound Care Nurse 3 #3 LEFT HAND -Ulcer Cleansing Rinsed/ Rinsed/ Irrigated with Irrigated with Saline Saline -Foul Odor after Cleansing No No -Primary Dressing Applied NonAdherent NonAdherent Contact Layer, Contact Layer, Promogran Promogran -Primary Dressing Covered/Secured with Dry Gauze Dry Gauze & Roll Gauze, Other -Other Covering SECURED W/ COB[place] PER PT REQUEST -Promogran 0 1 2-left superior FA -Ulcer Cleansing Rinsed/ Rinsed/ Irrigated with Irrigated with Saline Saline -Foul Odor after Cleansing No No -Primary Dressing Applied NonAdherent NonAdherent Contact Layer, Contact Layer Promogran -Primary Dressing Covered/Secured with Dry Gauze Dry Gauze & Roll Gauze, Other -Other Covering SECURED W/ [place] -Promogran 0 1-left inferior FA -Ulcer Cleansing Rinsed/ Rinsed/ Irrigated with Irrigated with Saline Saline -Foul Odor after Cleansing No No -Primary Dressing Applied NonAdherent NonAdherent Contact Layer, Contact Layer, Promogran Promogran -Primary Dressing Covered/Secured with Dry Gauze Dry Gauze & Roll Gauze, Other -Other Covering SECURED W/ [place] -Promogran 1 0 Right -Tubular Bandage Double Layer Double Layer -Size of Tubigrip Used Size D Size E -Size D ($) 2 -Size E ($) 1 Left -Tubular Bandage Double Layer Double Layer -Size of Tubigrip Used Size E Size E -Size E ($) 2 1 Treatment Response Procedure Tolerated Well Pain Scale: 0-10 Numeric Is Patient Pain Free? Yes Yes WC - Visit Discharge Discharge Condition Stable Stable Ambulatory Status Ambulatory Ambulatory Transportation Private Auto Private Auto Accompanied by Medication Reconcilliation completed & Yes provided to patient/care provider Clinical Summary of Care Provided Yes Additional Wound Wound debrided: Inferior Forearm Type of Debridement: Excisional debridement Anesthesia Used: 4% Lidocaine Solution Depth: Down to and including healthy tissue and in the subcutaneous layer Percentage of wound debrided: 100 Instrument Used: 3mm curette Tissue Removed: Slough and devitalized tissue Severity: Fat Layer Exposed Amount of bleeding with debridement: Mild Bleeding Controlled with: Pressure Patient tolerated procedure: Patient tolerated procedure well Assessment/Plan Assessment/Plan (1) Ulcer of upper extremity with fat layer exposed: CODE(S): L98.492 - Non-pressure chronic ulcer of skin of other sites with fat layer exposed (2) Abscess: CODE(S): L02.91 - Cutaneous abscess, unspecified (3) Debility: CODE(S): R53.81 - Other malaise PLAN: Superior forearm stays healed however inferior forearm and hand ulcers with some worsening. Debridement done as documented above, procedure was well-tolerated. Due to worsening, will start on Keflex for 2 weeks. His states that he has been on Keflex in the past and tolerated it well. Elevated CRP however culture with no significant growth. Continue Promogran daily with Adaptic. Directions given to to adequately clean surface before applying Promogran and Adaptic. Double layer Tubigrip for edema management. No history of diabetes and normal A1c at 5.1. Increase protein intake, vitamin C, D and zinc discussed. Continue other chronic care management. His questions were answered and he was advised to call with any further questions or concerns. Follow-up in 1 week. This note was generated with [employer]rb[employer] software. It may contain incorrect words, spelling, and punctuation that were not noted in checking the note before signing.
== END 2022-02-13 23:59 | disposition home or self-care (01) ==
LOC: WC 09:15
PROVIDERS: PCP Student in an Organized Health Care Education/Training Program; Referring Provider Internal Medicine; Visit Provider Internal Medicine
DX: L98.492 Non-pressure chronic ulcer of skin of other sites with fat layer exposed (principal); R53.81 Other malaise; L02.91 Cutaneous abscess, unspecified
CPT/HCPCS: 11042; 36415; 80053; 83036; 85025; 85652; 86140; 87070; 87075; 87205; 99203; G0463

== ENCOUNTER 2022-03-11 09:30 | Outpatient (RCR) | payer MEDICARE, MEDICAID, SELFPAY ==
[2022-02-14 00:11] VITALS: BP 143/62; PULSE 66; RESP 16; TEMP 36.4; BMI 42.8
[2022-02-25 09:49] VITALS: BP 153/61; PULSE 79; RESP 18; TEMP 36.1; BMI 42.8
--- NOTE | 2022-02-25 10:28 | PCM.WC.PN ---
History of Present Illness Date of Service: 02/25/22 Chief Complaint: Left Forearm Ulcer History of Wound: Mr Elaine is a 62 yo was referred to the wound center by his primary care physician due to nonhealing left forearm ulcers. Symptoms started months ago. Said to have started with swelling which become subsequently ulcerated. Denies any known precipitating factor. Has tried topical antibiotics and oral antibiotics without any significant improvement. No chills or fever. No prior or similar history in the past. Denies any history of diabetes mellitus. Minimal drainage from the ulcers. At this time, he denies chills, fever or otherwise feeling of unwell. Progress of Wound: Upper forearm reopened and hand with scarring. Patient states that he has been leaving it open and not exactly dressing it daily. Missed his appointment last week as well. Subjective Subjective No new concerns at this time Objective Data Objective Data Vital Signs: Vital Signs Temp Pulse Resp BP 97 F L 79 18 153/61 H 02/25/22 09:49 02/25/22 09:49 02/25/22 09:49 02/25/22 09:49 Weight: 307 lb Body Mass Index (BMI) 42.8 Charges/Coding Procedures Integumentary 111xxx-113xx: [id number] Evi subq tissue 20 sq cm/< Physical Exam Const alert, oriented x3 and no apparent distress General Appearance: cooperative, comfortable and well kempt HEENT normocephalic, head/scalp atraumatic and hearing grossly normal bilaterally Eyes PERRL and EOMs intact bilaterally General Eye: normal appearance of both eyes Neck full ROM General: normal visual inspection Resp normal respiratory effort Effort and Inspection: able to speak in complete sentences GI soft to palpation and non-tender Extremity full ROM Skin Lesions: lesion noted Wounds: wounds noted Neuro oriented x3, CN's II-XII intact bilaterally and moves all extremities Psych mental status grossly normal Appearance: grossly normal Attitude: calm Speech: normal speech Debridement Note Debridement Note Wound debrided: Left Hand Type of Debridement: Excisional debridement Anesthesia Used: 4% Lidocaine Solution Depth: Down to and including healthy tissue and in the subcutaneous layer Percentage of wound debrided: 100 Instrument Used: 3mm curette Tissue Removed: Slough and devitalized tissue Severity: Fat Layer Exposed Amount of bleeding with debridement: Mild Bleeding Controlled with: Pressure Patient tolerated procedure: Patient tolerated procedure well Post-Debridement Measurements and Additional Note: Post-Debridement Measurements/Treatment LISA - Nurse 1 - General Ulcer Assessment Start: 02/25/22 09:49 Freq: Status: Active Protocol: AMANDA Activity Type Activity Date Activity User E-Sign Co-Sign Detail Recorded Client Recorded Date Recorded By Document 02/25/22 09:49 LEFTY [id number] 02/25/22 09:55 RB 02/25/22 09:49 WC - Today's Visit Information Type of service Follow-up Visit (Physician/[employer] ATTENDANT ) Arrival Mode Ambulatory Transfer Assistance None Patient Identification Verified (Name & Yes ) Patient Requires Transmission-Based No Precautions Height and Weight Body Mass Index (BMI) 42.8 BMI Classification Obese Vital Signs Temperature (97.8 F-99.1 F) 97 F L Temperature Source Temporal Pulse Rate (60-100) 79 Pulse Location Monitor Respiratory Rate (12-18) 18 Respiratory rate source Observation Blood Pressure (90/60-120/80) 153/61 H Blood Pressure Mean (mm Hg) 91 Source Monitor Position Semi-Fowlers Blood Pressure Location Left Arm History Since Last Visit- (Skip if this is Patient's initial visit) Have you changed medications since your No last visit? Any new allergies or adverse reactions No Had a fall/change in ADL's that may No increase risk of falls Signs or symptoms of abuse and/or No neglect since last visit Have you been in the hospital since your No last visit? Has dressing in place as prescribed Yes Has compression in place as prescribed No Has offloadiing in place as prescribed No Experienced any changes in pain level or No management Pain Scale: 0-10 Numeric Is Patient Pain Free? Yes - Nurse 1 - General Ulcer Measurement Start: 02/25/22 09:49 Freq: Status: Active Protocol: Activity Type Activity Date Activity User E-Sign Co-Sign Detail Recorded Client Recorded Date Recorded By Document 02/25/22 09:49 LEFTY [id number] 02/25/22 09:55 LEFTY 02/25/22 09:49 Wound Center Nurse 1 #3 LEFT HAND -Combined with other wound No -Current Size (cm) - Length 0.1 -Current Size (cm) - Width 0.1 -Current Size (cm) - Depth 0.1 -Total Square Cm 0.01 -Tunneling No -Undermining/Tunneling No -Circular Undermining No -Exudate Amt Medium -Exudate Type Serosanguineous -Wound Margin Distinct, Outline Attached -Granulation Amt Medium (34-66%) -Granulation Quality [place] -Slough/Fibrin Yes -Necrosis Amt Small (1-33%) -Necrotic Tissue Type Adherent Slough -Structure Exposed N/A -Texture ([place]-wound Skin Appearance) Assessed -Moisture ([place]-wound Skin Appearance) Assessed -Color ([place]-wound Skin Appearance) Assessed -Temperature ([place]-wound Skin No Abnormality Appearance) (Pt Warm) -Tenderness on Palpation ([place]-wound No Skin Appearance) -Ulcer Cleansing Wound Cleanser -Foul Odor after Cleansing No -Anesthetic Used 5% Lidocaine Gel 2-left superior FA -Combined with other wound No -Current Size (cm) - Length 0.1 -Current Size (cm) - Width 0.1 -Current Size (cm) - Depth 0.1 -Total Square Cm 0.01 -Tunneling No -Undermining/Tunneling No -Circular Undermining No -Exudate Amt Medium -Exudate Type Serosanguineous -Wound Margin Distinct, Outline Attached -Granulation Amt Medium (34-66%) -Granulation Quality [place] -Slough/Fibrin Yes -Necrosis Amt Small (1-33%) -Necrotic Tissue Type Adherent Slough -Structure Exposed N/A -Texture ([place]-wound Skin Appearance) Assessed, Scarring -Moisture ([place]-wound Skin Appearance) Assessed -Color ([place]-wound Skin Appearance) Assessed -Temperature ([place]-wound Skin No Abnormality Appearance) (Pt Warm) -Tenderness on Palpation ([place]-wound No Skin Appearance) -Ulcer Cleansing Wound Cleanser -Foul Odor after Cleansing No -Anesthetic Used 5% Lidocaine Gel 1-left inferior FA -Combined with other wound No -Current Size (cm) - Length 0.1 -Current Size (cm) - Width 0.1 -Current Size (cm) - Depth 0.1 -Total Square Cm 0.01 -Tunneling No -Undermining/Tunneling No -Circular Undermining No -Exudate Amt Medium -Exudate Type Serosanguineous -Wound Margin Distinct, Outline Attached -Granulation Amt Medium (34-66%) -Granulation Quality [place] -Slough/Fibrin Yes -Necrosis Amt Small (1-33%) -Necrotic Tissue Type Adherent Slough -Structure Exposed N/A -Texture ([place]-wound Skin Appearance) Assessed, Scarring -Moisture ([place]-wound Skin Appearance) Assessed -Color ([place]-wound Skin Appearance) Assessed -Temperature ([place]-wound Skin No Abnormality Appearance) (Pt Warm) -Tenderness on Palpation ([place]-wound No Skin Appearance) -Ulcer Cleansing Wound Cleanser -Foul Odor after Cleansing No -Anesthetic Used 5% Lidocaine Gel WC - Nurse 2 - General Ulcer CM Notes Start: 02/25/22 09:49 Freq: Status: Active Protocol: Activity Type Activity Date Activity User E-Sign Co-Sign Detail Recorded Client Recorded Date Recorded By Document 02/25/22 10:01 MW [id number] 02/25/22 10:07 MW 02/25/22 10:01 Wound Center Nurse 2 #3 LEFT HAND -Time 10:03 -Correct Patient Yes -Correct Side, Site, Position Yes -Correct Procedure Yes -Procedure Performed Yes -Type of Procedure Debridement -Clinical Debridement Subcutaneous -Tissue Removed Subcutaneous -Post Debridement (cm) - Length 0.8 -Post Debridement (cm) - Width 0.6 -Post Debridement (cm) - Depth 0.1 -Total Square (Post) (cm) 0.48 -Area of Debridement (cm) - Length 0.8 -Area of Debridement (cm) - Width 0.6 -Total Square (Area) (cm) 0.48 -Tunneling No -Undermining/Tunneling No -Circular Undermining No -Wound/Ulcer Outcome Not Healed -Ulcer Cleansing Rinsed/ Irrigated with Saline -Foul Odor after Cleansing No -Bioengineered Tissue No -Bleeding Controlled with Pressure -Treatment Response Procedure Tolerated Well -Offloading No -Debridement - Subq, 1st 20sq cm Yes 2-left superior FA -Time 10:05 -Correct Patient Yes -Correct Side, Site, Position Yes -Correct Procedure Yes -Procedure Performed Yes -Type of Procedure Debridement -Clinical Debridement Subcutaneous -Tissue Removed Subcutaneous -Post Debridement (cm) - Length 0.1 -Post Debridement (cm) - Width 0.1 -Post Debridement (cm) - Depth 0.1 -Total Square (Post) (cm) 0.01 -Area of Debridement (cm) - Length 0.1 -Area of Debridement (cm) - Width 0.1 -Total Square (Area) (cm) 0.01 -Tunneling No -Undermining/Tunneling No -Circular Undermining No -Wound/Ulcer Outcome Not Healed -Ulcer Cleansing Rinsed/ Irrigated with Saline -Foul Odor after Cleansing No -Bioengineered Tissue No -Bleeding Controlled with Pressure -Treatment Response Procedure Tolerated Well -Offloading No -Debridement - Subq, 1st 20sq cm No 1-left inferior FA -Time 10:06 -Correct Patient Yes -Correct Side, Site, Position Yes -Correct Procedure Yes -Procedure Performed Yes -Type of Procedure Debridement -Clinical Debridement Subcutaneous -Tissue Removed Subcutaneous -Post Debridement (cm) - Length 0.1 -Post Debridement (cm) - Width 0.1 -Post Debridement (cm) - Depth 0.1 -Total Square (Post) (cm) 0.01 -Area of Debridement (cm) - Length 0.1 -Area of Debridement (cm) - Width 0.1 -Total Square (Area) (cm) 0.01 -Tunneling No -Undermining/Tunneling No -Circular Undermining No -Wound/Ulcer Outcome Not Healed -Ulcer Cleansing Rinsed/ Irrigated with Saline -Foul Odor after Cleansing No -Bioengineered Tissue No -Bleeding Controlled with Pressure -Treatment Response Procedure Tolerated Well -Offloading No -Debridement - Subq, 1st 20sq cm No Pain Scale: 0-10 Numeric Is Patient Pain Free? Yes Assessment/Plan Assessment/Plan (1) Ulcer of upper extremity with fat layer exposed: CODE(S): L98.492 - Non-pressure chronic ulcer of skin of other sites with fat layer exposed (2) Abscess: CODE(S): L02.91 - Cutaneous abscess, unspecified (3) Debility: CODE(S): R53.81 - Other malaise PLAN: Debridement done as documented above, procedure was well-tolerated. Superior ulcer reopened. Hand with no significant improvement. Scabbed over. Patient has been leaving it open to air instead of doing dressing changes as directed. He was strongly advised not to. Continue Promogran daily with Adaptic. Directions given to to adequately clean surface before applying Promogran and Adaptic. Tubigrip for edema management.He has not been using this either. Compliance strongly recommended. No history of diabetes and normal A1c at 5.1. Increase protein intake, vitamin C, D and zinc discussed. Continue other chronic care management. His questions were answered and he was advised to call with any further questions or concerns. Follow-up in 1 week. This note was generated with [employer] software. It may contain incorrect words, spelling, and punctuation that were not noted in checking the note before signing.
[2022-03-04 08:21] VITALS: BP 141/74; PULSE 68; RESP 18; TEMP 36.3; BMI 42.8
--- NOTE | 2022-03-04 09:54 | PCM.WC.PN ---
History of Present Illness Date of Service: 03/04/22 Chief Complaint: Left Forearm Ulcer History of Wound: Mr Elaine is a 62 yo was referred to the wound center by his primary care physician due to nonhealing left forearm ulcers. Symptoms started months ago. Said to have started with swelling which become subsequently ulcerated. Denies any known precipitating factor. Has tried topical antibiotics and oral antibiotics without any significant improvement. No chills or fever. No prior or similar history in the past. Denies any history of diabetes mellitus. Minimal drainage from the ulcers. At this time, he denies chills, fever or otherwise feeling of unwell. Progress of Wound: Ulcerations again reopened. Patient not doing dressing changes as directed. Objective Data Objective Data Vital Signs: Vital Signs Temp Pulse Resp BP 97.3 F L 68 18 141/74 H 03/04/22 08:21 03/04/22 08:21 03/04/22 08:21 03/04/22 08:21 Weight: 307 lb Body Mass Index (BMI) 42.8 Charges/Coding Procedures Integumentary 111xxx-113xx: [id number] Evi subq tissue 20 sq cm/< Physical Exam Const alert, oriented x3 and no apparent distress General Appearance: cooperative, comfortable and well kempt HEENT normocephalic, head/scalp atraumatic and hearing grossly normal bilaterally Eyes PERRL and EOMs intact bilaterally General Eye: normal appearance of both eyes Neck full ROM General: normal visual inspection Resp normal respiratory effort Effort and Inspection: able to speak in complete sentences GI soft to palpation and non-tender Extremity full ROM Skin Lesions: lesion noted Wounds: wounds noted Neuro oriented x3, CN's II-XII intact bilaterally and moves all extremities Psych mental status grossly normal Appearance: grossly normal Attitude: calm Speech: normal speech Debridement Note Debridement Note Wound debrided: Left Hand Type of Debridement: Excisional debridement Anesthesia Used: 4% Lidocaine Solution Depth: Down to and including healthy tissue and in the subcutaneous layer Percentage of wound debrided: 100 Instrument Used: 3mm curette Tissue Removed: Slough and devitalized tissue Severity: Fat Layer Exposed Amount of bleeding with debridement: Mild Bleeding Controlled with: Pressure Patient tolerated procedure: Patient tolerated procedure well Post-Debridement Measurements and Additional Note: Post-Debridement Measurements/Treatment WC - Nurse 1 - General Ulcer Assessment Start: 02/25/22 09:49 Freq: Status: Active Protocol: AMANDA Activity Type Activity Date Activity User E-Sign Co-Sign Detail Recorded Client Recorded Date Recorded By Document 02/25/22 09:49 RB [id number] 02/25/22 09:55 RB Document 03/04/22 08:21 RB [id number] 03/04/22 08:30 RB 02/25/22 03/04/22 09:49 08:21 - Today's Visit Information Type of service Follow-up Visit Follow-up Visit (Physician/TEST PILOT (Physician/TEST PILOT ) ) Arrival Mode Ambulatory Ambulatory Transfer Assistance None None Patient Identification Verified (Name & Yes ) Patient Requires Transmission-Based No No Precautions Height and Weight Body Mass Index (BMI) 42.8 42.8 BMI Classification Obese Obese Vital Signs Temperature (97.8 F-99.1 F) 97 F L 97.3 F L Temperature Source Temporal Temporal Pulse Rate (60-100) 79 68 Pulse Location Monitor Monitor Respiratory Rate (12-18) 18 18 Respiratory rate source Observation Observation Blood Pressure (90/60-120/80) 153/61 H 141/74 H Blood Pressure Mean (mm Hg) 91 96 Source Monitor Monitor Position Semi-Fowlers Sitting Blood Pressure Location Left Arm Right Arm History Since Last Visit- (Skip if this is Patient's initial visit) Have you changed medications since your No No last visit? Any new allergies or adverse reactions No No Had a fall/change in ADL's that may No No increase risk of falls Signs or symptoms of abuse and/or No No neglect since last visit Have you been in the hospital since your No No last visit? Has dressing in place as prescribed Yes Yes Has compression in place as prescribed No No Has offloadiing in place as prescribed No No Experienced any changes in pain level or No No management Pain Scale: 0-10 Numeric Is Patient Pain Free? Yes Yes - Nurse 1 - General Ulcer Measurement Start: 02/25/22 09:49 Freq: Status: Active Protocol: Activity Type Activity Date Activity User E-Sign Co-Sign Detail Recorded Client Recorded Date Recorded By Document 02/25/22 09:49 RB [id number] 02/25/22 09:55 RB Document 03/04/22 08:21 RB [id number] 03/04/22 08:30 RB 02/25/22 03/04/22 09:49 08:21 Wound Center Nurse 1 #3 LEFT HAND -Combined with other wound No No -Current Size (cm) - Length 0.1 0.5 -Current Size (cm) - Width 0.1 0.5 -Current Size (cm) - Depth 0.1 0.1 -Total Square Cm 0.01 0.25 -Tunneling No No -Undermining/Tunneling No No -Circular Undermining No No -Exudate Amt Medium Medium -Exudate Type Serosanguineous Serosanguineous -Wound Margin Distinct, Distinct, Outline Outline Attached Attached -Granulation Amt Medium (34-66%) Medium (34-66%) -Granulation Quality [place] -Slough/Fibrin Yes Yes -Necrosis Amt Small (1-33%) Small (1-33%) -Necrotic Tissue Type Adherent Slough Adherent Slough -Structure Exposed N/A N/A -Texture ([place]-wound Skin Appearance) Assessed Assessed, Scarring -Moisture ([place]-wound Skin Appearance) Assessed Assessed -Color ([place]-wound Skin Appearance) Assessed Assessed -Temperature ([place]-wound Skin No Abnormality No Abnormality Appearance) (Pt Warm) (Pt Warm) -Tenderness on Palpation ([place]-wound No No Skin Appearance) -Ulcer Cleansing Wound Cleanser Wound Cleanser -Foul Odor after Cleansing No No -Anesthetic Used 5% Lidocaine 5% Lidocaine Gel Gel 2-left superior FA -Combined with other wound No No -Current Size (cm) - Length 0.1 0.6 -Current Size (cm) - Width 0.1 0.7 -Current Size (cm) - Depth 0.1 0.1 -Total Square Cm 0.01 0.42 -Tunneling No No -Undermining/Tunneling No No -Circular Undermining No No -Exudate Amt Medium Medium -Exudate Type Serosanguineous Serosanguineous -Wound Margin Distinct, Distinct, Outline Outline Attached Attached -Granulation Amt Medium (34-66%) Medium (34-66%) -Granulation Quality [place] -Slough/Fibrin Yes Yes -Necrosis Amt Small (1-33%) Medium (34-66%) -Necrotic Tissue Type Adherent Slough Adherent Slough -Structure Exposed N/A N/A -Texture ([place]-wound Skin Appearance) Assessed, Assessed, Scarring Scarring -Moisture ([place]-wound Skin Appearance) Assessed Assessed -Color ([place]-wound Skin Appearance) Assessed Assessed -Temperature ([place]-wound Skin No Abnormality No Abnormality Appearance) (Pt Warm) (Pt Warm) -Tenderness on Palpation ([place]-wound No No Skin Appearance) -Ulcer Cleansing Wound Cleanser Wound Cleanser -Foul Odor after Cleansing No No -Anesthetic Used 5% Lidocaine 5% Lidocaine Gel Gel 1-left inferior FA -Combined with other wound No No -Current Size (cm) - Length 0.1 0.6 -Current Size (cm) - Width 0.1 0.7 -Current Size (cm) - Depth 0.1 0.1 -Total Square Cm 0.01 0.42 -Tunneling No No -Undermining/Tunneling No No -Circular Undermining No No -Exudate Amt Medium Medium -Exudate Type Serosanguineous Serosanguineous -Wound Margin Distinct, Distinct, Outline Outline Attached Attached -Granulation Amt Medium (34-66%) Medium (34-66%) -Granulation Quality [place] -Slough/Fibrin Yes Yes -Necrosis Amt Small (1-33%) Small (1-33%) -Necrotic Tissue Type Adherent Slough Adherent Slough -Structure Exposed N/A N/A -Texture ([place]-wound Skin Appearance) Assessed, Assessed, Scarring Scarring -Moisture ([place]-wound Skin Appearance) Assessed Assessed -Color ([place]-wound Skin Appearance) Assessed Assessed -Temperature ([place]-wound Skin No Abnormality No Abnormality Appearance) (Pt Warm) (Pt Warm) -Tenderness on Palpation ([place]-wound No No Skin Appearance) -Ulcer Cleansing Wound Cleanser Wound Cleanser -Foul Odor after Cleansing No No -Anesthetic Used 5% Lidocaine 5% Lidocaine Gel Gel WC - Nurse 2 - General Ulcer CM Notes Start: 02/25/22 09:49 Freq: Status: Active Protocol: Activity Type Activity Date Activity User E-Sign Co-Sign Detail Recorded Client Recorded Date Recorded By Document 02/25/22 10:01 MW [id number] 02/25/22 10:07 MW Document 03/04/22 09:02 MW [id number] 03/04/22 09:09 MW 02/25/22 03/04/22 10:01 09:02 Wound Center Nurse 2 #3 LEFT HAND -Time 10:03 09:05 -Correct Patient Yes Yes -Correct Side, Site, Position Yes Yes -Correct Procedure Yes Yes -Procedure Performed Yes Yes -Type of Procedure Debridement Debridement -Clinical Debridement Subcutaneous Subcutaneous -Tissue Removed Subcutaneous Subcutaneous -Post Debridement (cm) - Length 0.8 0.5 -Post Debridement (cm) - Width 0.6 0.5 -Post Debridement (cm) - Depth 0.1 0.1 -Total Square (Post) (cm) 0.48 0.25 -Area of Debridement (cm) - Length 0.8 0.5 -Area of Debridement (cm) - Width 0.6 0.5 -Total Square (Area) (cm) 0.48 0.25 -Tunneling No No -Undermining/Tunneling No No -Circular Undermining No No -Wound/Ulcer Outcome Not Healed Not Healed -Ulcer Cleansing Rinsed/ Rinsed/ Irrigated with Irrigated with Saline Saline -Foul Odor after Cleansing No No -Bioengineered Tissue No No -Bleeding Controlled with Pressure Pressure -Treatment Response Procedure Procedure Tolerated Well Tolerated Well -Offloading No No -Debridement - Subq, 1st 20sq cm Yes Yes 2-left superior FA -Time 10:05 09:05 -Correct Patient Yes Yes -Correct Side, Site, Position Yes Yes -Correct Procedure Yes Yes -Procedure Performed Yes Yes -Type of Procedure Debridement Debridement -Clinical Debridement Subcutaneous Subcutaneous -Tissue Removed Subcutaneous Subcutaneous -Post Debridement (cm) - Length 0.1 0.7 -Post Debridement (cm) - Width 0.1 0.9 -Post Debridement (cm) - Depth 0.1 0.1 -Total Square (Post) (cm) 0.01 0.63 -Area of Debridement (cm) - Length 0.1 0.7 -Area of Debridement (cm) - Width 0.1 0.9 -Total Square (Area) (cm) 0.01 0.63 -Tunneling No No -Undermining/Tunneling No No -Circular Undermining No No -Wound/Ulcer Outcome Not Healed Not Healed -Ulcer Cleansing Rinsed/ Rinsed/ Irrigated with Irrigated with Saline Saline -Foul Odor after Cleansing No No -Bioengineered Tissue No No -Bleeding Controlled with Pressure Pressure -Treatment Response Procedure Procedure Tolerated Well Tolerated Well -Offloading No No -Debridement - Subq, 1st 20sq cm No No 1-left inferior FA -Time 10:06 09:06 -Correct Patient Yes Yes -Correct Side, Site, Position Yes Yes -Correct Procedure Yes Yes -Procedure Performed Yes Yes -Type of Procedure Debridement Debridement -Clinical Debridement Subcutaneous Subcutaneous -Tissue Removed Subcutaneous Subcutaneous -Post Debridement (cm) - Length 0.1 0.9 -Post Debridement (cm) - Width 0.1 0.9 -Post Debridement (cm) - Depth 0.1 0.1 -Total Square (Post) (cm) 0.01 0.81 -Area of Debridement (cm) - Length 0.1 0.9 -Area of Debridement (cm) - Width 0.1 0.9 -Total Square (Area) (cm) 0.01 0.81 -Tunneling No No -Undermining/Tunneling No No -Circular Undermining No No -Wound/Ulcer Outcome Not Healed Not Healed -Ulcer Cleansing Rinsed/ Rinsed/ Irrigated with Irrigated with Saline Saline -Foul Odor after Cleansing No No -Bioengineered Tissue No No -Bleeding Controlled with Pressure Pressure -Treatment Response Procedure Procedure Tolerated Well Tolerated Well -Offloading No No -Debridement - Subq, 1st 20sq cm No No Pain Scale: 0-10 Numeric Is Patient Pain Free? Yes Yes WC - Nurse 3 - General Ulcer D/C NN Start: 02/25/22 09:49 Freq: Status: Active Protocol: Activity Type Activity Date Activity User E-Sign Co-Sign Detail Recorded Client Recorded Date Recorded By Document 02/25/22 12:12 DL [id number] 02/25/22 12:14 DL Document 03/04/22 09:22 [facility] [id number] 03/04/22 09:23 [facility] 02/25/22 03/04/22 12:12 09:22 Wound Care Nurse 3 #3 LEFT HAND -Ulcer Cleansing Rinsed/ Rinsed/ Irrigated with Irrigated with Saline Saline -Foul Odor after Cleansing No No -Primary Dressing Applied Promogran NonAdherent Contact Layer, Promogran Xochilt Matter -Other Dressing sedured w/ coban -Primary Dressing Covered/Secured with Dry Gauze & Dry Gauze & Roll Gauze, Roll Gauze, Secured with Secured with Tape Tape,Other -Other Covering abd -Promogran 1 -Promogran Xochilt Matter 1 2-left superior FA -Ulcer Cleansing Rinsed/ Rinsed/ Irrigated with Irrigated with Saline Saline -Foul Odor after Cleansing No No -Primary Dressing Applied NonAdherent Contact Layer, Promogran Xochilt Matter -Other Dressing moist promogran secured w/ coban -Primary Dressing Covered/Secured with Dry Gauze,Dry Dry Gauze & Gauze & Roll Roll Gauze, Gauze,Secured Secured with with Tape Tape,Other -Other Covering abd -Promogran Xochilt Matter 0 1-left inferior FA -Ulcer Cleansing Rinsed/ Rinsed/ Irrigated with Irrigated with Saline Saline -Foul Odor after Cleansing No No -Primary Dressing Applied NonAdherent Contact Layer, Promogran Xochilt Matter -Other Dressing moist promogran secured w/ coban -Primary Dressing Covered/Secured with Dry Gauze & Dry Gauze & Roll Gauze, Roll Gauze, Secured with Secured with Tape Tape -Other Covering abd -Promogran Xochilt Matter 1 Treatment Response Procedure Procedure Tolerated Well Tolerated Well Pain Scale: 0-10 Numeric Is Patient Pain Free? Yes Yes WC - Visit Discharge Discharge Condition Stable Stable Ambulatory Status Ambulatory Ambulatory Transportation Private Auto Private Auto Accompanied by Additional Wound Wound debrided: Left Forearm ( Inferior ) Type of Debridement: Excisional debridement Anesthesia Used: 4% Lidocaine Solution Depth: Down to and including healthy tissue and in the subcutaneous layer Percentage of wound debrided: 100 Instrument Used: 3mm curette Tissue Removed: Slough and devitilized tissue Severity: Fat Layer Exposed Amount of bleeding with debridement: Mild Bleeding Controlled with: Pressure Patient tolerated procedure: Patient tolerated procedure well Additional Wound Wound debrided: Left Forearm ( Superior ) Type of Debridement: Excisional debridement Anesthesia Used: 4% Lidocaine Solution Depth: Down to and including healthy tissue and in the subcutaneous layer Percentage of wound debrided: 100 Instrument Used: 3mm curette Severity: Fat Layer Exposed Amount of bleeding with debridement: Mild Bleeding Controlled with: Pressure Patient tolerated procedure: Patient tolerated procedure well Assessment/Plan Assessment/Plan (1) Ulcer of upper extremity with fat layer exposed: CODE(S): L98.492 - Non-pressure chronic ulcer of skin of other sites with fat layer exposed (2) Abscess: CODE(S): L02.91 - Cutaneous abscess, unspecified (3) Debility: CODE(S): R53.81 - Other malaise PLAN: Debridement done as documented above, procedure was well-tolerated. Worsening noted. Patient is not compliant with dressing changes and instructions. Continue Promogran with Adaptic. Cover with gauze and Coban roll. They were advised to leave it in place till Tuesday when he would come in for a nurse visit and change. Compliance strongly recommended. No history of diabetes and normal A1c at 5.1. Increase protein intake, vitamin C, D and zinc discussed. Continue other chronic care management. His questions were answered and he was advised to call with any further questions or concerns. Follow-up in 1 week. This note was generated with [employer] dictation software. It may contain incorrect words, spelling, and punctuation that were not noted in checking the note before signing.
[2022-03-08 08:17] VITALS: BP 160/73; PULSE 73; RESP 16; TEMP 36.5; BMI 42.8
[2022-03-11 08:54] VITALS: BP 150/79; PULSE 79; RESP 18; TEMP 36.3; BMI 42.8
--- NOTE | 2022-03-11 09:37 | PCM.WC.PN ---
History of Present Illness Date of Service: 03/11/22 Chief Complaint: Left Forearm Ulcer History of Wound: Mr Elaine is a 62 yo was referred to the wound center by his primary care physician due to nonhealing left forearm ulcers. Symptoms started months ago. Said to have started with swelling which become subsequently ulcerated. Denies any known precipitating factor. Has tried topical antibiotics and oral antibiotics without any significant improvement. No chills or fever. No prior or similar history in the past. Denies any history of diabetes mellitus. Minimal drainage from the ulcers. At this time, he denies chills, fever or otherwise feeling of unwell. Progress of Wound: Some improvement noted with only minimal area to the left hand. Subjective Subjective No new concerns at this time. Objective Data Objective Data Vital Signs: Vital Signs Temp Pulse Resp BP 97.3 F L 79 18 150/79 H 03/11/22 08:54 03/11/22 08:54 03/11/22 08:54 03/11/22 08:54 Oxygen Delivery Method Room Air Weight: 307 lb Body Mass Index (BMI) 42.8 Charges/Coding Procedures Integumentary 111xxx-113xx: 17350 Evi subq tissue 20 sq cm/< Physical Exam Const alert, oriented x3 and no apparent distress General Appearance: cooperative, comfortable and well kempt HEENT normocephalic, head/scalp atraumatic and hearing grossly normal bilaterally Eyes PERRL and EOMs intact bilaterally General Eye: normal appearance of both eyes Neck full ROM General: normal visual inspection Resp normal respiratory effort Effort and Inspection: able to speak in complete sentences GI soft to palpation and non-tender Extremity full ROM Skin Lesions: lesion noted Wounds: wounds noted Neuro oriented x3, CN's II-XII intact bilaterally and moves all extremities Psych mental status grossly normal Appearance: grossly normal Attitude: calm Speech: normal speech Debridement Note Debridement Note Wound debrided: Left Hand Type of Debridement: Excisional debridement Anesthesia Used: 4% Lidocaine Solution Depth: Down to and including healthy tissue and in the subcutaneous layer Percentage of wound debrided: 100 Instrument Used: 3mm curette Tissue Removed: Slough and devitalized tissue Severity: Fat Layer Exposed Amount of bleeding with debridement: Mild Bleeding Controlled with: Pressure Patient tolerated procedure: Patient tolerated procedure well Post-Debridement Measurements and Additional Note: Post-Debridement Measurements/Treatment WC - Nurse 1 - General Ulcer Assessment Start: 02/25/22 09:49 Freq: Status: Active Protocol: LISA.LOWEXT Activity Type Activity Date Activity User E-Sign Co-Sign Detail Recorded Client Recorded Date Recorded By Document 02/25/22 09:49 RB [id number] 02/25/22 09:55 RB Document 03/04/22 08:21 RB [id number] 03/04/22 08:30 RB Document 03/08/22 08:17 [facility] [id number] 03/08/22 08:19 BMF Document 03/11/22 08:54 RB [id number] 03/11/22 09:06 RB 02/25/22 03/04/22 03/08/22 09:49 08:21 08:17 - Today's Visit Information Type of service Follow-up Visit Follow-up Visit Nurse-only (Physician/SHRINKING MACHINE OPERATOR (Physician/SHRINKING MACHINE OPERATOR Visit ) ) Arrival Mode Ambulatory Ambulatory Ambulatory Transfer Assistance None None None Accompanied by Patient Identification Verified (Name & Yes Yes ) Patient Requires Transmission-Based No No No Precautions Height and Weight Body Mass Index (BMI) 42.8 42.8 42.8 BMI Classification Obese Obese Obese Vital Signs Temperature (97.8 F-99.1 F) 97 F L 97.3 F L 97.7 F L Temperature Source Temporal Temporal Temporal Pulse Rate (60-100) 79 68 73 Pulse Location Monitor Monitor Monitor Respiratory Rate (12-18) 18 18 16 Respiratory rate source Observation Observation Observation Oxygen Delivery Method Room Air Blood Pressure (90/60-120/80) 153/61 H 141/74 H 160/73 H Blood Pressure Mean (mm Hg) 91 96 102 Source Monitor Monitor Monitor Position Semi-Fowlers Sitting Sitting Blood Pressure Location Left Arm Right Arm Right Arm History Since Last Visit- (Skip if this is Patient's initial visit) Have you changed medications since your No No No last visit? Any new allergies or adverse reactions No No No Had a fall/change in ADL's that may No No No increase risk of falls Signs or symptoms of abuse and/or No No No neglect since last visit Have you been in the hospital since your No No No last visit? Has dressing in place as prescribed Yes Yes Yes Has compression in place as prescribed No No N/A Has offloadiing in place as prescribed No No N/A Experienced any changes in pain level or No No No management Left Footwear Regular Shoe Right Footwear Regular Shoe Pain Scale: 0-10 Numeric Is Patient Pain Free? Yes Yes Yes 03/11/22 08:54 WC - Today's Visit Information Type of service Follow-up Visit (Physician/SHRINKING MACHINE OPERATOR ) Arrival Mode Ambulatory Transfer Assistance None Accompanied by Patient Identification Verified (Name & Yes ) Patient Requires Transmission-Based No Precautions Height and Weight Body Mass Index (BMI) 42.8 BMI Classification Obese Vital Signs Temperature (97.8 F-99.1 F) 97.3 F L Temperature Source Temporal Pulse Rate (60-100) 79 Pulse Location Monitor Respiratory Rate (12-18) 18 Respiratory rate source Observation Oxygen Delivery Method Blood Pressure (90/60-120/80) 150/79 H Blood Pressure Mean (mm Hg) 102 Source Monitor Position Semi-Fowlers Blood Pressure Location Left Arm History Since Last Visit- (Skip if this is Patient's initial visit) Have you changed medications since your No last visit? Any new allergies or adverse reactions No Had a fall/change in ADL's that may No increase risk of falls Signs or symptoms of abuse and/or No neglect since last visit Have you been in the hospital since your No last visit? Has dressing in place as prescribed Yes Has compression in place as prescribed No Has offloadiing in place as prescribed No Experienced any changes in pain level or No management Left Footwear Right Footwear Pain Scale: 0-10 Numeric Is Patient Pain Free? Yes - Nurse 1 - General Ulcer Measurement Start: 02/25/22 09:49 Freq: Status: Active Protocol: Activity Type Activity Date Activity User E-Sign Co-Sign Detail Recorded Client Recorded Date Recorded By Document 02/25/22 09:49 RB [id number] 02/25/22 09:55 RB Document 03/04/22 08:21 RB [id number] 03/04/22 08:30 RB Document 03/11/22 08:54 RB [id number] 03/11/22 09:06 RB 02/25/22 03/04/22 03/11/22 09:49 08:21 08:54 Wound Center Nurse 1 #3 LEFT HAND -Combined with other wound No No No -Current Size (cm) - Length 0.1 0.5 0.1 -Current Size (cm) - Width 0.1 0.5 0.1 -Current Size (cm) - Depth 0.1 0.1 0.1 -Total Square Cm 0.01 0.25 0.01 -Photo Taken Yes -Tunneling No No No -Undermining/Tunneling No No No -Circular Undermining No No No -Exudate Amt Medium Medium Small -Exudate Type Serosanguineous Serosanguineous Serosanguineous -Wound Margin Distinct, Distinct, Distinct, Outline Outline Outline Attached Attached Attached -Granulation Amt Medium (34-66%) Medium (34-66%) Medium (34-66%) -Granulation Quality [place] -Slough/Fibrin Yes Yes Yes -Necrosis Amt Small (1-33%) Small (1-33%) Large (67-100%) -Necrotic Tissue Type Adherent Slough Adherent Slough Adherent Slough -Structure Exposed N/A N/A N/A -Texture ([place]-wound Skin Appearance) Assessed Assessed, Scarring Scarring -Moisture ([place]-wound Skin Appearance) Assessed Assessed Assessed -Color ([place]-wound Skin Appearance) Assessed Assessed Assessed -Temperature ([place]-wound Skin No Abnormality No Abnormality No Abnormality Appearance) (Pt Warm) (Pt Warm) (Pt Warm) -Tenderness on Palpation ([place]-wound No No No Skin Appearance) -Ulcer Cleansing Wound Cleanser Wound Cleanser Wound Cleanser -Foul Odor after Cleansing No No -Anesthetic Used 5% Lidocaine 5% Lidocaine 5% Lidocaine Gel Gel Gel,Cetacaine 2-left superior FA -Combined with other wound No No No -Current Size (cm) - Length 0.1 0.6 0.7 -Current Size (cm) - Width 0.1 0.7 0.8 -Current Size (cm) - Depth 0.1 0.1 0.1 -Total Square Cm 0.01 0.42 0.56 -Photo Taken Yes -Tunneling No No No -Undermining/Tunneling No No No -Circular Undermining No No No -Exudate Amt Medium Medium Medium -Exudate Type Serosanguineous Serosanguineous Serosanguineous -Wound Margin Distinct, Distinct, Distinct, Outline Outline Outline Attached Attached Attached -Granulation Amt Medium (34-66%) Medium (34-66%) Medium (34-66%) -Granulation Quality [place] -Slough/Fibrin Yes Yes Yes -Necrosis Amt Small (1-33%) Medium (34-66%) Small (1-33%) -Necrotic Tissue Type Adherent Slough Adherent Slough Adherent Slough -Structure Exposed N/A N/A N/A -Texture ([place]-wound Skin Appearance) Assessed, Assessed, Assessed, Scarring Scarring Scarring -Moisture ([place]-wound Skin Appearance) Assessed Assessed Assessed -Color ([place]-wound Skin Appearance) Assessed Assessed Assessed -Temperature ([place]-wound Skin No Abnormality No Abnormality No Abnormality Appearance) (Pt Warm) (Pt Warm) (Pt Warm) -Tenderness on Palpation ([place]-wound No No No Skin Appearance) -Ulcer Cleansing Wound Cleanser Wound Cleanser Wound Cleanser -Foul Odor after Cleansing No No No -Anesthetic Used 5% Lidocaine 5% Lidocaine 5% Lidocaine Gel Gel Gel 1-left inferior FA -Combined with other wound No No No -Current Size (cm) - Length 0.1 0.6 1 -Current Size (cm) - Width 0.1 0.7 1 -Current Size (cm) - Depth 0.1 0.1 0.1 -Total Square Cm 0.01 0.42 1 -Photo Taken Yes -Tunneling No No No -Undermining/Tunneling No No No -Circular Undermining No No No -Change in Wound Grade/Stage No -Exudate Amt Medium Medium Medium -Exudate Type Serosanguineous Serosanguineous Serosanguineous -Wound Margin Distinct, Distinct, Distinct, Outline Outline Outline Attached Attached Attached -Granulation Amt Medium (34-66%) Medium (34-66%) Medium (34-66%) -Granulation Quality [place],Red -Slough/Fibrin Yes Yes Yes -Necrosis Amt Small (1-33%) Small (1-33%) Medium (34-66%) -Necrotic Tissue Type Adherent Slough Adherent Slough Adherent Slough -Structure Exposed N/A N/A N/A -Texture ([place]-wound Skin Appearance) Assessed, Assessed, Assessed, Scarring Scarring Scarring -Moisture ([place]-wound Skin Appearance) Assessed Assessed Assessed -Color ([place]-wound Skin Appearance) Assessed Assessed Assessed -Temperature ([place]-wound Skin No Abnormality No Abnormality No Abnormality Appearance) (Pt Warm) (Pt Warm) (Pt Warm) -Tenderness on Palpation ([place]-wound No No No Skin Appearance) -Ulcer Cleansing Wound Cleanser Wound Cleanser Wound Cleanser -Foul Odor after Cleansing No No Yes, Due to Product Use -Anesthetic Used 5% Lidocaine 5% Lidocaine 5% Lidocaine Gel Gel Gel WC - Nurse 2 - General Ulcer CM Notes Start: 02/25/22 09:49 Freq: Status: Active Protocol: Activity Type Activity Date Activity User E-Sign Co-Sign Detail Recorded Client Recorded Date Recorded By Document 02/25/22 10:01 MW [id number] 02/25/22 10:07 MW Document 03/04/22 09:02 MW [id number] 03/04/22 09:09 MW Document 03/11/22 09:25 [id number] 03/11/22 09:28 JF 02/25/22 03/04/22 03/11/22 10:01 09:02 09:25 Wound Center Nurse 2 #3 LEFT HAND -Time 10:03 09:05 09:25 -Correct Patient Yes Yes Yes -Correct Side, Site, Position Yes Yes Yes -Correct Procedure Yes Yes Yes -Procedure Performed Yes Yes Yes -Type of Procedure Debridement Debridement Debridement -Clinical Debridement Subcutaneous Subcutaneous Subcutaneous -Tissue Removed Subcutaneous Subcutaneous Subcutaneous -Post Debridement (cm) - Length 0.8 0.5 0.2 -Post Debridement (cm) - Width 0.6 0.5 0.2 -Post Debridement (cm) - Depth 0.1 0.1 0.1 -Total Square (Post) (cm) 0.48 0.25 0.04 -Area of Debridement (cm) - Length 0.8 0.5 0.2 -Area of Debridement (cm) - Width 0.6 0.5 0.2 -Total Square (Area) (cm) 0.48 0.25 0.04 -Tunneling No No No -Undermining/Tunneling No No No -Circular Undermining No No No -Wound/Ulcer Outcome Not Healed Not Healed Not Healed -Ulcer Cleansing Rinsed/ Rinsed/ Rinsed/ Irrigated with Irrigated with Irrigated with Saline Saline Saline -Foul Odor after Cleansing No No No -Bioengineered Tissue No No No -Bleeding Controlled with Pressure Pressure Pressure -Treatment Response Procedure Procedure Procedure Tolerated Well Tolerated Well Tolerated Well -Offloading No No No -Debridement - Subq, 1st 20sq cm Yes Yes No 2-left superior FA -Time 10:05 09:05 09:26 -Correct Patient Yes Yes Yes -Correct Side, Site, Position Yes Yes Yes -Correct Procedure Yes Yes Yes -Procedure Performed Yes Yes Yes -Type of Procedure Debridement Debridement Debridement -Clinical Debridement Subcutaneous Subcutaneous Subcutaneous -Tissue Removed Subcutaneous Subcutaneous Subcutaneous -Post Debridement (cm) - Length 0.1 0.7 0.6 -Post Debridement (cm) - Width 0.1 0.9 0.7 -Post Debridement (cm) - Depth 0.1 0.1 0.1 -Total Square (Post) (cm) 0.01 0.63 0.42 -Area of Debridement (cm) - Length 0.1 0.7 0.6 -Area of Debridement (cm) - Width 0.1 0.9 0.7 -Total Square (Area) (cm) 0.01 0.63 0.42 -Tunneling No No No -Undermining/Tunneling No No No -Circular Undermining No No No -Wound/Ulcer Outcome Not Healed Not Healed Not Healed -Ulcer Cleansing Rinsed/ Rinsed/ Rinsed/ Irrigated with Irrigated with Irrigated with Saline Saline Saline -Foul Odor after Cleansing No No No -Bioengineered Tissue No No No -Bleeding Controlled with Pressure Pressure Pressure -Treatment Response Procedure Procedure Procedure Tolerated Well Tolerated Well Tolerated Well -Offloading No No No -Debridement - Subq, 1st 20sq cm No No No 1-left inferior FA -Time 10:06 09:06 09:27 -Correct Patient Yes Yes Yes -Correct Side, Site, Position Yes Yes Yes -Correct Procedure Yes Yes Yes -Procedure Performed Yes Yes Yes -Type of Procedure Debridement Debridement Debridement -Clinical Debridement Subcutaneous Subcutaneous Subcutaneous -Tissue Removed Subcutaneous Subcutaneous Subcutaneous -Post Debridement (cm) - Length 0.1 0.9 0.7 -Post Debridement (cm) - Width 0.1 0.9 1.1 -Post Debridement (cm) - Depth 0.1 0.1 0.1 -Total Square (Post) (cm) 0.01 0.81 0.77 -Area of Debridement (cm) - Length 0.1 0.9 0.7 -Area of Debridement (cm) - Width 0.1 0.9 1.1 -Total Square (Area) (cm) 0.01 0.81 0.77 -Tunneling No No No -Undermining/Tunneling No No No -Circular Undermining No No No -Wound/Ulcer Outcome Not Healed Not Healed Not Healed -Ulcer Cleansing Rinsed/ Rinsed/ Rinsed/ Irrigated with Irrigated with Irrigated with Saline Saline Saline -Foul Odor after Cleansing No No No -Bioengineered Tissue No No No -Bleeding Controlled with Pressure Pressure Pressure -Treatment Response Procedure Procedure Procedure Tolerated Well Tolerated Well Tolerated Well -Offloading No No No -Debridement - Subq, 1st 20sq cm No No Yes Pain Scale: 0-10 Numeric Is Patient Pain Free? Yes Yes Yes WC - Nurse 3 - General Ulcer D/C NN Start: 02/25/22 09:49 Freq: Status: Active Protocol: Activity Type Activity Date Activity User E-Sign Co-Sign Detail Recorded Client Recorded Date Recorded By Document 02/25/22 12:12 DL [id number] 02/25/22 12:14 DL Document 03/04/22 09:22 [facility] [id number] 03/04/22 09:23 BM Document 03/08/22 08:17 [facility] [id number] 03/08/22 08:19 BMF 02/25/22 03/04/22 03/08/22 12:12 09:22 08:17 Wound Care Nurse 3 #3 LEFT HAND -Ulcer Cleansing Rinsed/ Rinsed/ Rinsed/ Irrigated with Irrigated with Irrigated with Saline Saline Saline -Foul Odor after Cleansing No No No -Primary Dressing Applied Promogran NonAdherent NonAdherent Contact Layer, Contact Layer, Promogran Promogran Xochilt Matter -Other Dressing sedured w/ coban -Primary Dressing Covered/Secured with Dry Gauze & Dry Gauze & Dry Gauze & Roll Gauze, Roll Gauze, Roll Gauze, Secured with Secured with Secured with Tape Tape,Other Tape -Other Covering abd secured w/ coban -Promogran 1 1 -Promogran Xochilt Matter 1 2-left superior FA -Ulcer Cleansing Rinsed/ Rinsed/ Rinsed/ Irrigated with Irrigated with Irrigated with Saline Saline Saline -Foul Odor after Cleansing No No No -Primary Dressing Applied NonAdherent NonAdherent Contact Layer, Contact Layer, Promogran Promogran Xochilt Matter -Other Dressing moist promogran secured w/ coban -Primary Dressing Covered/Secured with Dry Gauze,Dry Dry Gauze & Dry Gauze & Gauze & Roll Roll Gauze, Roll Gauze, Gauze,Secured Secured with Secured with with Tape Tape,Other Tape,Other -Other Covering abd secured w/ coban -Promogran 0 -Promogran Xochilt Matter 0 1-left inferior FA -Ulcer Cleansing Rinsed/ Rinsed/ Rinsed/ Irrigated with Irrigated with Irrigated with Saline Saline Saline -Foul Odor after Cleansing No No No -Primary Dressing Applied NonAdherent NonAdherent Contact Layer, Contact Layer, Promogran Promogran Xochilt Matter -Other Dressing moist promogran secured w/ coban -Primary Dressing Covered/Secured with Dry Gauze & Dry Gauze & Dry Gauze & Roll Gauze, Roll Gauze, Roll Gauze, Secured with Secured with Secured with Tape Tape Tape -Other Covering abd secured w/ coban -Promogran 0 -Promogran Xochilt Matter 1 Treatment Response Procedure Procedure Procedure Tolerated Well Tolerated Well Tolerated Well Vital Signs Temperature (97.8 F-99.1 F) 97.7 F L Temperature Source Temporal Pulse Rate (60-100) 73 Pulse Location Monitor Respiratory Rate (12-18) 16 Respiratory rate source Observation Oxygen Delivery Method Room Air Blood Pressure (90/60-120/80) 160/73 H Blood Pressure Mean (mm Hg) 102 Source Monitor Position Sitting Blood Pressure Location Right Arm Pain Scale: 0-10 Numeric Is Patient Pain Free? Yes Yes Yes WC - Visit Discharge Discharge Condition Stable Stable Stable Ambulatory Status Ambulatory Ambulatory Ambulatory Transportation Private Auto Private Auto Private Auto Accompanied by Additional Wound Wound debrided: Left Forearm ( Inferior ) Type of Debridement: Excisional debridement Anesthesia Used: 4% Lidocaine Solution Depth: Down to and including healthy tissue and in the subcutaneous layer Percentage of wound debrided: 100 Instrument Used: 3mm curette Tissue Removed: Slough and devitalized tissue Severity: Fat Layer Exposed Amount of bleeding with debridement: Mild Bleeding Controlled with: Pressure Patient tolerated procedure: Patient tolerated procedure well Additional Wound Wound debrided: Left Forearm ( Superior ) Type of Debridement: Excisional debridement Anesthesia Used: 4% Lidocaine Solution Depth: Down to and including healthy tissue and in the subcutaneous layer Percentage of wound debrided: 100 Instrument Used: 3mm curette Tissue Removed: Slough and devitalized tissue Severity: Fat Layer Exposed Amount of bleeding with debridement: Mild Bleeding Controlled with: Pressure Patient tolerated procedure: Patient tolerated procedure well Assessment/Plan Assessment/Plan (1) Ulcer of upper extremity with fat layer exposed: CODE(S): L98.492 - Non-pressure chronic ulcer of skin of other sites with fat layer exposed (2) Abscess: CODE(S): L02.91 - Cutaneous abscess, unspecified (3) Debility: CODE(S): R53.81 - Other malaise PLAN: Debridement done as documented above, procedure was well-tolerated. Improvement noted this week. He was advised to leave dressing in place and come in for a nurse visit which he did. Continue Promogran with Adaptic. Cover with gauze and Coban roll. Leave in place till Tuesday. Unfortunately, he can not come in for a nurse visit due to the holiday. He also can not come in on Tuesday because he has something already scheduled. Change dressing at home on Tuesday. Compliance strongly recommended. No history of diabetes and normal A1c at 5.1. Increase protein intake, vitamin C, D and zinc discussed. Continue other chronic care management. His questions were answered and he was advised to call with any further questions or concerns. Follow-up in 1 week. This note was generated with [employer] dictation software. It may contain incorrect words, spelling, and punctuation that were not noted in checking the note before signing.
== END 2022-03-16 23:59 | disposition home or self-care (01) ==
LOC: WC 09:30
PROVIDERS: PCP Student in an Organized Health Care Education/Training Program; Referring Provider Internal Medicine; Visit Provider Internal Medicine
DX: L98.492 Non-pressure chronic ulcer of skin of other sites with fat layer exposed (principal); L02.91 Cutaneous abscess, unspecified; R53.81 Other malaise; L90.5 Scar conditions and fibrosis of skin
CPT/HCPCS: 11042; 99212; G0463

== ENCOUNTER 2022-04-08 10:00 | Outpatient (RCR) | payer MEDICARE, MEDICAID, SELFPAY ==
[2022-03-17 00:23] VITALS: BP 150/79; PULSE 79; RESP 18; TEMP 36.3; BMI 42.8
[2022-03-18 09:05] VITALS: BP 143/87; PULSE 70; RESP 18; TEMP 36.4; BMI 42.8
--- NOTE | 2022-03-18 11:01 | PCM.WC.PN ---
History of Present Illness Date of Service: 03/18/22 Chief Complaint: Left Forearm Ulcer History of Wound: Mr Elaine is a 62 yo was referred to the wound center by his primary care physician due to nonhealing left forearm ulcers. Symptoms started months ago. Said to have started with swelling which become subsequently ulcerated. Denies any known precipitating factor. Has tried topical antibiotics and oral antibiotics without any significant improvement. No chills or fever. No prior or similar history in the past. Denies any history of diabetes mellitus. Minimal drainage from the ulcers. At this time, he denies chills, fever or otherwise feeling of unwell. Progress of Wound: Did not come in for a nurse visit due to the holiday and another scheduled appointment. Inferior forearm with some improvement however hand with worsening. Objective Data Objective Data Vital Signs: Vital Signs Temp Pulse Resp BP 97.5 F L 70 18 143/87 H 03/18/22 09:05 03/18/22 09:05 03/18/22 09:05 03/18/22 09:05 Weight: 307 lb Body Mass Index (BMI) 42.8 Charges/Coding Procedures Integumentary 111xxx-113xx: 11902 Debride infected skin (Superficial/selective debridement done, please refer to clinical note.) Physical Exam Const alert, oriented x3 and no apparent distress General Appearance: cooperative, comfortable and well kempt HEENT normocephalic, head/scalp atraumatic and hearing grossly normal bilaterally Eyes PERRL and EOMs intact bilaterally General Eye: normal appearance of both eyes Neck full ROM General: normal visual inspection Resp normal respiratory effort Effort and Inspection: able to speak in complete sentences GI soft to palpation and non-tender Extremity full ROM Skin Lesions: lesion noted Wounds: wounds noted Neuro oriented x3, CN's II-XII intact bilaterally and moves all extremities Psych mental status grossly normal Appearance: grossly normal Attitude: calm Speech: normal speech Debridement Note Debridement Note Wound debrided: Left Forearm superior Type of Debridement: - (Superficial/selective debridement) Anesthesia Used: 4% Lidocaine Solution Depth: Down to and including healthy tissue Percentage of wound debrided: 100 Instrument Used: - (Gauze and saline) Severity: Fat Layer Exposed Amount of bleeding with debridement: Mild Bleeding Controlled with: Pressure Patient tolerated procedure: Patient tolerated procedure well Post-Debridement Measurements and Additional Note: Post-Debridement Measurements/Treatment WC - Nurse 1 - General Ulcer Assessment Start: 03/18/22 09:05 Freq: Status: Active Protocol: AMANDA Activity Type Activity Date Activity User E-Sign Co-Sign Detail Recorded Client Recorded Date Recorded By Document 03/18/22 09:05 YANET [id number] 03/18/22 09:16 YANET 03/18/22 09:05 - Today's Visit Information Type of service Follow-up Visit (Physician/[employer]GR[employer] ANALYST ) Arrival Mode Ambulatory Patient Identification Verified (Name & Yes ) Patient Requires Transmission-Based No Precautions Height and Weight Body Mass Index (BMI) 42.8 BMI Classification Obese Vital Signs Temperature (97.8 F-99.1 F) 97.5 F L Temperature Source Temporal Pulse Rate (60-100) 70 Pulse Location Monitor Respiratory Rate (12-18) 18 Respiratory rate source Observation Blood Pressure (90/60-120/80) 143/87 H Blood Pressure Mean (mm Hg) 105 Source Monitor Position Semi-Fowlers Blood Pressure Location Right Arm History Since Last Visit- (Skip if this is Patient's initial visit) Have you changed medications since your No last visit? Any new allergies or adverse reactions No Had a fall/change in ADL's that may No increase risk of falls Signs or symptoms of abuse and/or No neglect since last visit Have you been in the hospital since your No last visit? Has dressing in place as prescribed Yes Has compression in place as prescribed N/A Has offloadiing in place as prescribed N/A Experienced any changes in pain level or No management Left Footwear Regular Shoe Right Footwear Regular Shoe Pain Scale: 0-10 Numeric Is Patient Pain Free? Yes - Nurse 1 - General Ulcer Measurement Start: 03/18/22 09:05 Freq: Status: Active Protocol: Activity Type Activity Date Activity User E-Sign Co-Sign Detail Recorded Client Recorded Date Recorded By Document 03/18/22 09:05 YANET [id number] 03/18/22 09:16 YANET 03/18/22 09:05 Wound Center Nurse 1 #3 LEFT HAND -Combined with other wound No -Current Size (cm) - Length 0.7 -Current Size (cm) - Width 0.5 -Current Size (cm) - Depth 0.1 -Total Square Cm 0.35 -Photo Taken Yes -Epithelialization Large 67-100% -Tunneling No -Undermining/Tunneling No -Circular Undermining No -Exudate Amt Small -Exudate Type Serosanguineous -Wound Margin Flat & Intact -Granulation Amt Large (67-100%) -Granulation Quality Red -Slough/Fibrin Yes -Necrosis Amt Small (1-33%) -Necrotic Tissue Type Adherent Slough -Structure Exposed None/Limited to Skin Breakdown -Texture ([place]-wound Skin Appearance) Assessed -Moisture ([place]-wound Skin Appearance) Assessed,Dry/ Scaly -Color ([place]-wound Skin Appearance) Assessed -Temperature ([place]-wound Skin No Abnormality Appearance) (Pt Warm) -Tenderness on Palpation ([place]-wound No Skin Appearance) -Ulcer Cleansing Rinsed/ Irrigated with Saline -Foul Odor after Cleansing No -Anesthetic Used 4% Lidocaine Solution 2-left superior FA -Combined with other wound No -Current Size (cm) - Length 0.1 -Current Size (cm) - Width 0.1 -Current Size (cm) - Depth 0.1 -Total Square Cm 0.01 -Photo Taken Yes -Epithelialization Large 67-100% -Tunneling No -Undermining/Tunneling No -Circular Undermining No -Exudate Amt Small -Exudate Type Serosanguineous -Wound Margin Flat & Intact -Granulation Amt Large (67-100%) -Granulation Quality Red -Slough/Fibrin Yes -Necrosis Amt Small (1-33%) -Necrotic Tissue Type Adherent Slough -Structure Exposed N/A -Texture ([place]-wound Skin Appearance) Assessed -Moisture ([place]-wound Skin Appearance) Assessed,Dry/ Scaly -Color ([place]-wound Skin Appearance) Assessed -Temperature ([place]-wound Skin No Abnormality Appearance) (Pt Warm) -Tenderness on Palpation ([place]-wound No Skin Appearance) -Ulcer Cleansing Rinsed/ Irrigated with Saline -Foul Odor after Cleansing No -Anesthetic Used 4% Lidocaine Solution 1-left inferior FA -Combined with other wound No -Current Size (cm) - Length 0.4 -Current Size (cm) - Width 0.4 -Current Size (cm) - Depth 0.1 -Total Square Cm 0.16 -Photo Taken Yes -Epithelialization Large 67-100% -Tunneling No -Circular Undermining No -Exudate Amt Small -Exudate Type Serosanguineous -Wound Margin Flat & Intact -Granulation Amt Large (67-100%) -Granulation Quality Red -Slough/Fibrin Yes -Necrosis Amt Small (1-33%) -Necrotic Tissue Type Adherent Slough -Structure Exposed N/A -Texture ([place]-wound Skin Appearance) Assessed -Moisture ([place]-wound Skin Appearance) Assessed,Dry/ Scaly -Color ([place]-wound Skin Appearance) Assessed -Temperature ([place]-wound Skin No Abnormality Appearance) (Pt Warm) -Tenderness on Palpation ([place]-wound No Skin Appearance) -Ulcer Cleansing Rinsed/ Irrigated with Saline -Foul Odor after Cleansing No -Anesthetic Used 4% Lidocaine Solution Lower Limb Edema Present NA WC - Nurse 2 - General Ulcer CM Notes Start: 03/18/22 09:05 Freq: Status: Active Protocol: Activity Type Activity Date Activity User E-Sign Co-Sign Detail Recorded Client Recorded Date Recorded By Document 03/18/22 09:47 MW [id number] 03/18/22 09:49 MW 03/18/22 09:47 Wound Center Nurse 2 #3 LEFT HAND -Time 09:47 -Correct Patient Yes -Correct Side, Site, Position Yes -Correct Procedure Yes -Procedure Performed Yes -Type of Procedure Debridement -Clinical Debridement Epidermis / Dermis -Tissue Removed Epidermis -Post Debridement (cm) - Length 0.5 -Post Debridement (cm) - Width 0.9 -Post Debridement (cm) - Depth 0.1 -Total Square (Post) (cm) 0.45 -Area of Debridement (cm) - Length 0.5 -Area of Debridement (cm) - Width 0.9 -Total Square (Area) (cm) 0.45 -Tunneling No -Undermining/Tunneling No -Circular Undermining No -Wound/Ulcer Outcome Not Healed -Ulcer Cleansing Rinsed/ Irrigated with Saline -Foul Odor after Cleansing No -Bioengineered Tissue No -Bleeding Controlled with Pressure -Treatment Response Procedure Tolerated Well -Offloading No -Debridement - Open, 1st 20sq cm Yes 2-left superior FA -Time 09:48 -Correct Patient Yes -Correct Side, Site, Position Yes -Correct Procedure Yes -Procedure Performed Yes -Type of Procedure Debridement -Clinical Debridement Epidermis / Dermis -Tissue Removed Epidermis -Post Debridement (cm) - Length 0.4 -Post Debridement (cm) - Width 0.3 -Post Debridement (cm) - Depth 0.1 -Total Square (Post) (cm) 0.12 -Area of Debridement (cm) - Length 0.4 -Area of Debridement (cm) - Width 0.3 -Total Square (Area) (cm) 0.12 -Tunneling No -Undermining/Tunneling No -Circular Undermining No -Wound/Ulcer Outcome Not Healed -Ulcer Cleansing Rinsed/ Irrigated with Saline -Foul Odor after Cleansing No -Bioengineered Tissue No -Bleeding Controlled with Pressure -Treatment Response Procedure Tolerated Well -Offloading No -Debridement - Open, 1st 20sq cm No 1-left inferior FA -Time 09:48 -Correct Patient Yes -Correct Side, Site, Position Yes -Correct Procedure Yes -Procedure Performed Yes -Type of Procedure Debridement -Clinical Debridement Epidermis / Dermis -Tissue Removed Epidermis -Post Debridement (cm) - Length 0.1 -Post Debridement (cm) - Width 0.1 -Post Debridement (cm) - Depth 0.1 -Total Square (Post) (cm) 0.01 -Area of Debridement (cm) - Length 0.1 -Area of Debridement (cm) - Width 0.1 -Total Square (Area) (cm) 0.01 -Tunneling No -Undermining/Tunneling No -Circular Undermining No -Wound/Ulcer Outcome Not Healed -Ulcer Cleansing Rinsed/ Irrigated with Saline -Foul Odor after Cleansing No -Bioengineered Tissue No -Bleeding Controlled with Pressure -Treatment Response Procedure Tolerated Well -Offloading No -Debridement - Open, 1st 20sq cm No Pain Scale: 0-10 Numeric Is Patient Pain Free? Yes WC - Nurse 3 - General Ulcer D/C NN Start: 03/18/22 09:05 Freq: Status: Active Protocol: Activity Type Activity Date Activity User E-Sign Co-Sign Detail Recorded Client Recorded Date Recorded By Document 03/18/22 10:04 DL [id number] 03/18/22 10:06 DL 03/18/22 10:04 Wound Care Nurse 3 #3 LEFT HAND -Ulcer Cleansing Rinsed/ Irrigated with Saline -Foul Odor after Cleansing No -Primary Dressing Applied NonAdherent Contact Layer, Promogran -Primary Dressing Covered/Secured with Dry Gauze & Roll Gauze, Secured with Tape -Promogran 1 2-left superior FA -Ulcer Cleansing Rinsed/ Irrigated with Saline -Foul Odor after Cleansing No -Primary Dressing Applied NonAdherent Contact Layer -Other Dressing promogran -Primary Dressing Covered/Secured with Dry Gauze & Roll Gauze, Secured with Tape -Other Covering coban 1-left inferior FA -Ulcer Cleansing Rinsed/ Irrigated with Saline -Foul Odor after Cleansing No -Primary Dressing Applied NonAdherent Contact Layer -Other Dressing promogran -Primary Dressing Covered/Secured with Dry Gauze & Roll Gauze, Secured with Tape Treatment Response Procedure Tolerated Well Pain Scale: 0-10 Numeric Is Patient Pain Free? Yes WC - Visit Discharge Discharge Condition Stable Ambulatory Status Ambulatory Transportation Private Auto Additional Wound Wound debrided: Left hand Type of Debridement: - (Superficial/selective debridement) Anesthesia Used: 4% Lidocaine Solution Depth: Down to and including healthy tissue and in the subcutaneous layer Percentage of wound debrided: 100 Instrument Used: - (Gauze and saline) Severity: Fat Layer Exposed Bleeding Controlled with: Pressure Patient tolerated procedure: Patient tolerated procedure well Assessment/Plan Assessment/Plan (1) Ulcer of upper extremity with fat layer exposed: CODE(S): L98.492 - Non-pressure chronic ulcer of skin of other sites with fat layer exposed (2) Abscess: CODE(S): L02.91 - Cutaneous abscess, unspecified (3) Debility: CODE(S): R53.81 - Other malaise PLAN: Debridement done as documented above, procedure was well-tolerated. Inferior forearm is healed however hand with some worsening. He was unable to come in for dressing changes. Continue moistened Promogran with Adaptic over top. Cover with Don wrap. Leave in place till Tuesday and come in for nurse visit. Compliance strongly recommended. No history of diabetes and normal A1c at 5.1. Increase protein intake, vitamin C, D and zinc discussed. Continue other chronic care management. His questions were answered and he was advised to call with any further questions or concerns. Follow-up in 1 week. This note was generated with [employer] software. It may contain incorrect words, spelling, and punctuation that were not noted in checking the note before signing.
[2022-03-25 09:00] VITALS: BP 147/63; PULSE 75; RESP 18; TEMP 36.3; BMI 42.8
--- NOTE | 2022-03-25 09:48 | PN.PCM_ITS ---
History of Present Illness Date of Service: 03/25/22 Chief Complaint: Left Forearm Ulcer History of Wound: Mr Elaine is a 62 yo was referred to the wound center by his primary care physician due to nonhealing left forearm ulcers. Symptoms started months ago. Said to have started with swelling which become subsequently ulcerated. Denies any known precipitating factor. Has tried topical antibiotics and oral antibiotics without any significant improvement. No chills or fever. No prior or similar history in the past. Denies any history of diabetes mellitus. Minimal drainage from the ulcers. At this time, he denies chills, fever or otherwise feeling of unwell. Progress of Wound: Again, did not come in for a nurse visit. He states that he had an appointment. Promogran dried up with some worsening noted Subjective Subjective No new concerns reported Objective Data Objective Data Vital Signs: Vital Signs Temp Pulse Resp BP 97.3 F L 75 18 147/63 H 03/25/22 09:00 03/25/22 09:00 03/25/22 09:00 03/25/22 09:00 Weight: 307 lb Body Mass Index (BMI) 42.8 Charges/Coding Procedures Integumentary 111xxx-113xx: 85200 Debride infected skin (Selective/superficial debridement done) Physical Exam Const alert, oriented x3 and no apparent distress General Appearance: cooperative, comfortable and well kempt HEENT normocephalic, head/scalp atraumatic and hearing grossly normal bilaterally Eyes PERRL and EOMs intact bilaterally General Eye: normal appearance of both eyes Neck full ROM General: normal visual inspection Resp normal respiratory effort Effort and Inspection: able to speak in complete sentences GI soft to palpation and non-tender Extremity full ROM Skin Lesions: lesion noted Wounds: wounds noted Neuro oriented x3, CN's II-XII intact bilaterally and moves all extremities Psych mental status grossly normal Appearance: grossly normal Attitude: calm Speech: normal speech Debridement Note Debridement Note Wound debrided: Left hand Type of Debridement: Selective debridement Depth: Down to and including healthy tissue Percentage of wound debrided: 100 Instrument Used: - (Gauze and saline) Tissue Removed: Slough and devitalized tissue Severity: Fat Layer Exposed Amount of bleeding with debridement: Mild Bleeding Controlled with: Pressure Patient tolerated procedure: Patient tolerated procedure well Post-Debridement Measurements and Additional Note: Post-Debridement Measurements/Treatment WC - Nurse 1 - General Ulcer Assessment Start: 03/18/22 09:05 Freq: Status: Active Protocol: AMANDA Activity Type Activity Date Activity User E-Sign Co-Sign Detail Recorded Client Recorded Date Recorded By Document 03/18/22 09:05 YANET [id number] 03/18/22 09:16 YANET Document 03/25/22 09:00 [facility] [id number] 03/25/22 09:07 [facility] 03/18/22 03/25/22 09:05 09:00 - Today's Visit Information Type of service Follow-up Visit Follow-up Visit (Physician/MARKETING OPERATIONS SPECIALIST (Physician/MARKETING OPERATIONS SPECIALIST ) ) Arrival Mode Ambulatory Ambulatory Transfer Assistance None Patient Identification Verified (Name & Yes Yes ) Patient Requires Transmission-Based No Precautions Height and Weight Body Mass Index (BMI) 42.8 42.8 BMI Classification Obese Obese Vital Signs Temperature (97.8 F-99.1 F) 97.5 F L 97.3 F L Temperature Source Temporal Temporal Pulse Rate (60-100) 70 75 Pulse Location Monitor Monitor Respiratory Rate (12-18) 18 18 Respiratory rate source Observation Observation Blood Pressure (90/60-120/80) 143/87 H 147/63 H Blood Pressure Mean (mm Hg) 105 91 Source Monitor Monitor Position Semi-Fowlers Sitting Blood Pressure Location Right Arm Left Arm History Since Last Visit- (Skip if this is Patient's initial visit) Have you changed medications since your No No last visit? Any new allergies or adverse reactions No No Had a fall/change in ADL's that may No No increase risk of falls Signs or symptoms of abuse and/or No No neglect since last visit Have you been in the hospital since your No No last visit? Has dressing in place as prescribed Yes Yes Has compression in place as prescribed N/A No Has offloadiing in place as prescribed N/A No Experienced any changes in pain level or No No management Left Footwear Regular Shoe Right Footwear Regular Shoe Pain Scale: 0-10 Numeric Is Patient Pain Free? Yes Yes - Nurse 1 - General Ulcer Measurement Start: 03/18/22 09:05 Freq: Status: Active Protocol: Activity Type Activity Date Activity User E-Sign Co-Sign Detail Recorded Client Recorded Date Recorded By Document 03/18/22 09:05 YANET [id number] 03/18/22 09:16 JF Document 03/25/22 09:00 [facility] [id number] 03/25/22 09:07 BMF 03/18/22 03/25/22 09:05 09:00 Wound Center Nurse 1 #3 LEFT HAND -Combined with other wound No No -Current Size (cm) - Length 0.7 0.1 -Current Size (cm) - Width 0.5 0.4 -Current Size (cm) - Depth 0.1 0.1 -Total Square Cm 0.35 0.04 -Photo Taken Yes Yes -Epithelialization Large 67-100% -Tunneling No No -Undermining/Tunneling No No -Circular Undermining No No -Exudate Amt Small -Exudate Type Serosanguineous -Wound Margin Flat & Intact -Granulation Amt Large (67-100%) Medium (34-66%) -Granulation Quality [place] -Slough/Fibrin Yes Yes -Necrosis Amt Small (1-33%) Small (1-33%) -Necrotic Tissue Type Adherent Slough Adherent Slough -Structure Exposed None/Limited to N/A Skin Breakdown -Texture ([place]-wound Skin Appearance) Assessed Assessed, Scarring -Moisture ([place]-wound Skin Appearance) Assessed,Dry/ Assessed Scaly -Color ([place]-wound Skin Appearance) Assessed Assessed -Temperature ([place]-wound Skin No Abnormality No Abnormality Appearance) (Pt Warm) (Pt Warm) -Tenderness on Palpation ([place]-wound No No Skin Appearance) -Ulcer Cleansing Rinsed/ Wound Cleanser Irrigated with Saline -Foul Odor after Cleansing No No -Anesthetic Used 4% Lidocaine 5% Lidocaine Solution Gel 2-left superior FA -Combined with other wound No No -Current Size (cm) - Length 0.1 0.2 -Current Size (cm) - Width 0.1 0.4 -Current Size (cm) - Depth 0.1 0.1 -Total Square Cm 0.01 0.08 -Photo Taken Yes Yes -Epithelialization Large 67-100% -Tunneling No No -Undermining/Tunneling No No -Circular Undermining No No -Exudate Amt Small Medium -Exudate Type Serosanguineous Serosanguineous -Wound Margin Flat & Intact Distinct, Outline Attached -Granulation Amt Large (67-100%) Medium (34-66%) -Granulation Quality [place] -Slough/Fibrin Yes Yes -Necrosis Amt Small (1-33%) Small (1-33%) -Necrotic Tissue Type Adherent Slough Adherent Slough -Structure Exposed N/A N/A -Texture ([place]-wound Skin Appearance) Assessed Assessed, Scarring -Moisture ([place]-wound Skin Appearance) Assessed,Dry/ Assessed Scaly -Color ([place]-wound Skin Appearance) Assessed Assessed -Temperature ([place]-wound Skin No Abnormality No Abnormality Appearance) (Pt Warm) (Pt Warm) -Tenderness on Palpation ([place]-wound No No Skin Appearance) -Ulcer Cleansing Rinsed/ Wound Cleanser Irrigated with Saline -Foul Odor after Cleansing No No -Anesthetic Used 4% Lidocaine 5% Lidocaine Solution Gel 1-left inferior FA -Combined with other wound No No -Current Size (cm) - Length 0.4 0.6 -Current Size (cm) - Width 0.4 0.7 -Current Size (cm) - Depth 0.1 0.1 -Total Square Cm 0.16 0.42 -Photo Taken Yes Yes -Epithelialization Large 67-100% -Tunneling No No -Undermining/Tunneling No -Circular Undermining No No -Exudate Amt Small Medium -Exudate Type Serosanguineous Serosanguineous -Wound Margin Flat & Intact Distinct, Outline Attached -Granulation Amt Large (67-100%) Medium (34-66%) -Granulation Quality [place] -Slough/Fibrin Yes Yes -Necrosis Amt Small (1-33%) Medium (34-66%) -Necrotic Tissue Type Adherent Slough Adherent Slough -Structure Exposed N/A N/A -Texture ([place]-wound Skin Appearance) Assessed Assessed, Scarring -Moisture ([place]-wound Skin Appearance) Assessed,Dry/ Assessed Scaly -Color ([place]-wound Skin Appearance) Assessed Assessed -Temperature ([place]-wound Skin No Abnormality No Abnormality Appearance) (Pt Warm) (Pt Warm) -Tenderness on Palpation ([place]-wound No No Skin Appearance) -Ulcer Cleansing Rinsed/ Wound Cleanser Irrigated with Saline -Foul Odor after Cleansing No No -Anesthetic Used 4% Lidocaine 5% Lidocaine Solution Gel Lower Limb Edema Present NA WC - Nurse 2 - General Ulcer CM Notes Start: 03/18/22 09:05 Freq: Status: Active Protocol: Activity Type Activity Date Activity User E-Sign Co-Sign Detail Recorded Client Recorded Date Recorded By Document 03/18/22 09:47 MW [id number] 03/18/22 09:49 MW Document 03/25/22 09:19 MW [id number] 03/25/22 09:22 MW 03/18/22 03/25/22 09:47 09:19 Wound Center Nurse 2 #3 LEFT HAND -Time 09:47 09:19 -Correct Patient Yes Yes -Correct Side, Site, Position Yes Yes -Correct Procedure Yes Yes -Procedure Performed Yes Yes -Type of Procedure Debridement Debridement -Clinical Debridement Epidermis / Epidermis / Dermis Dermis -Tissue Removed Epidermis Epidermis -Post Debridement (cm) - Length 0.5 0.1 -Post Debridement (cm) - Width 0.9 0.9 -Post Debridement (cm) - Depth 0.1 0.1 -Total Square (Post) (cm) 0.45 0.09 -Area of Debridement (cm) - Length 0.5 0.1 -Area of Debridement (cm) - Width 0.9 0.9 -Total Square (Area) (cm) 0.45 0.09 -Tunneling No No -Undermining/Tunneling No No -Circular Undermining No No -Wound/Ulcer Outcome Not Healed Not Healed -Ulcer Cleansing Rinsed/ Rinsed/ Irrigated with Irrigated with Saline Saline -Foul Odor after Cleansing No No -Bioengineered Tissue No No -Bleeding Controlled with Pressure Pressure -Treatment Response Procedure Procedure Tolerated Well Tolerated Well -Offloading No No -Debridement - Open, 1st 20sq cm Yes Yes 2-left superior FA -Time 09:48 09:20 -Correct Patient Yes Yes -Correct Side, Site, Position Yes Yes -Correct Procedure Yes Yes -Procedure Performed Yes Yes -Type of Procedure Debridement Debridement -Clinical Debridement Epidermis / Epidermis / Dermis Dermis -Tissue Removed Epidermis Epidermis -Post Debridement (cm) - Length 0.4 0.4 -Post Debridement (cm) - Width 0.3 0.6 -Post Debridement (cm) - Depth 0.1 0.1 -Total Square (Post) (cm) 0.12 0.24 -Area of Debridement (cm) - Length 0.4 0.4 -Area of Debridement (cm) - Width 0.3 0.6 -Total Square (Area) (cm) 0.12 0.24 -Tunneling No No -Undermining/Tunneling No No -Circular Undermining No No -Wound/Ulcer Outcome Not Healed Not Healed -Ulcer Cleansing Rinsed/ Rinsed/ Irrigated with Irrigated with Saline Saline -Foul Odor after Cleansing No No -Bioengineered Tissue No No -Bleeding Controlled with Pressure Pressure -Treatment Response Procedure Procedure Tolerated Well Tolerated Well -Offloading No No -Debridement - Open, 1st 20sq cm No No 1-left inferior FA -Time 09:48 09:20 -Correct Patient Yes Yes -Correct Side, Site, Position Yes Yes -Correct Procedure Yes Yes -Procedure Performed Yes Yes -Type of Procedure Debridement Debridement -Clinical Debridement Epidermis / Epidermis / Dermis Dermis -Tissue Removed Epidermis Epidermis -Post Debridement (cm) - Length 0.1 0.8 -Post Debridement (cm) - Width 0.1 0.8 -Post Debridement (cm) - Depth 0.1 0.1 -Total Square (Post) (cm) 0.01 0.64 -Area of Debridement (cm) - Length 0.1 0.8 -Area of Debridement (cm) - Width 0.1 0.8 -Total Square (Area) (cm) 0.01 0.64 -Tunneling No No -Undermining/Tunneling No No -Circular Undermining No No -Wound/Ulcer Outcome Not Healed Not Healed -Ulcer Cleansing Rinsed/ Rinsed/ Irrigated with Irrigated with Saline Saline -Foul Odor after Cleansing No No -Bioengineered Tissue No No -Bleeding Controlled with Pressure Pressure -Treatment Response Procedure Procedure Tolerated Well Tolerated Well -Offloading No No -Debridement - Open, 1st 20sq cm No No Pain Scale: 0-10 Numeric Is Patient Pain Free? Yes Yes - Nurse 3 - General Ulcer D/C NN Start: 03/18/22 09:05 Freq: Status: Active Protocol: Activity Type Activity Date Activity User E-Sign Co-Sign Detail Recorded Client Recorded Date Recorded By Document 03/18/22 10:04 DL [id number] 03/18/22 10:06 DL Document 03/25/22 09:35 RB [id number] 03/25/22 09:37 RB 03/18/22 03/25/22 10:04 09:35 Wound Care Nurse 3 #3 LEFT HAND -Ulcer Cleansing Rinsed/ Irrigated with Saline -Foul Odor after Cleansing No -Primary Dressing Applied NonAdherent C Hydrogel ($), Contact Layer, NonAdherent Promogran Contact Layer -Primary Dressing Covered/Secured with Dry Gauze & Dry Gauze,Dry Roll Gauze, Gauze & Roll Secured with Gauze,Secured Tape with Tape -Promogran 1 2-left superior FA -Ulcer Cleansing Rinsed/ Irrigated with Saline -Foul Odor after Cleansing No -Primary Dressing Applied NonAdherent NonAdherent Contact Layer Contact Layer -Other Dressing promogran hydrogel -Primary Dressing Covered/Secured with Dry Gauze & Dry Gauze,Dry Roll Gauze, Gauze & Roll Secured with Gauze,Secured Tape with Tape -Other Covering coban 1-left inferior FA -Ulcer Cleansing Rinsed/ Irrigated with Saline -Foul Odor after Cleansing No -Primary Dressing Applied NonAdherent NonAdherent Contact Layer Contact Layer -Other Dressing promogran hydrogel -Primary Dressing Covered/Secured with Dry Gauze & Dry Gauze,Dry Roll Gauze, Gauze & Roll Secured with Gauze,Secured Tape with Tape Treatment Response Procedure Procedure Tolerated Well Tolerated Well Pain Scale: 0-10 Numeric Is Patient Pain Free? Yes Yes WC - Visit Discharge Discharge Condition Stable Stable Ambulatory Status Ambulatory Ambulatory Transportation Private Auto Private Auto Medication Reconcilliation completed & No provided to patient/care provider Clinical Summary of Care Provided Yes Additional Wound Wound debrided: Left upper extremity inferior Type of Debridement: Selective debridement Anesthesia Used: 4% Lidocaine Solution Depth: Down to and including healthy tissue Percentage of wound debrided: 100 Instrument Used: - (Gauze and saline) Severity: Fat Layer Exposed Bleeding Controlled with: Pressure Patient tolerated procedure: Patient tolerated procedure well Additional Wound Wound debrided: Left upper extremity superior Type of Debridement: Selective debridement Anesthesia Used: 4% Lidocaine Solution Depth: Down to and including healthy tissue Percentage of wound debrided: 100 Instrument Used: - (Gauze and saline) Severity: Fat Layer Exposed Amount of bleeding with debridement: Mild Bleeding Controlled with: Pressure Patient tolerated procedure: Patient tolerated procedure well Assessment/Plan Assessment/Plan (1) Ulcer of upper extremity with fat layer exposed: CODE(S): L98.492 - Non-pressure chronic ulcer of skin of other sites with fat layer exposed (2) Abscess: CODE(S): L02.91 - Cutaneous abscess, unspecified (3) Debility: CODE(S): R53.81 - Other malaise PLAN: Debridement done as documented above, procedure was well-tolerated. Hand with some improvement however forearm ulcers with some worsening. Dryness noted by intake nurse. Dressing has been left in place for a week, they were advised to come in on Tuesday but he did not make it in. We will switch to hydrogel due to dryness, cover with Adaptic and leave in place for 48 hours. Change on Tuesday, come in Tuesday for a nurse visit. Compliance strongly recommended. No history of diabetes and normal A1c at 5.1. Increase protein intake, vitamin C, D and zinc discussed. Continue other chronic care management. His questions were answered and he was advised to call with any further questions or concerns. Follow-up in 1 week. This note was generated with [employer] dictation software. It may contain incorrect words, spelling, and punctuation that were not noted in checking the note before signing.
[2022-03-29 08:03] VITALS: BP 139/75; PULSE 79; TEMP 36.4; BMI 42.8
[2022-04-01 08:06] VITALS: BP 164/74; PULSE 83; RESP 18; TEMP 35.7; BMI 42.8
--- NOTE | 2022-04-01 08:58 | PCM.WC.PN ---
History of Present Illness Date of Service: 04/01/22 Chief Complaint: Left Forearm Ulcer History of Wound: Mr Elaine is a 62 yo was referred to the wound center by his primary care physician due to nonhealing left forearm ulcers. Symptoms started months ago. Said to have started with swelling which become subsequently ulcerated. Denies any known precipitating factor. Has tried topical antibiotics and oral antibiotics without any significant improvement. No chills or fever. No prior or similar history in the past. Denies any history of diabetes mellitus. Minimal drainage from the ulcers. At this time, he denies chills, fever or otherwise feeling of unwell. Progress of Wound: No significant change in the past week. Due to some dryness noted a week ago, he was switched to hydrogel. It does not appear that this has made any difference. Subjective Subjective No new concerns reported. Objective Data Objective Data Vital Signs: Vital Signs Temp Pulse Resp BP 96.2 F L 83 18 164/74 H 04/01/22 08:06 04/01/22 08:06 04/01/22 08:06 04/01/22 08:06 Oxygen Delivery Method Room Air Weight: 307 lb Body Mass Index (BMI) 42.8 Charges/Coding Procedures Integumentary 111xxx-113xx: 70435 Evi subq tissue 20 sq cm/< Physical Exam Const alert, oriented x3 and no apparent distress General Appearance: cooperative, comfortable and well kempt HEENT normocephalic, head/scalp atraumatic and hearing grossly normal bilaterally Eyes PERRL and EOMs intact bilaterally General Eye: normal appearance of both eyes Neck full ROM General: normal visual inspection Resp normal respiratory effort Effort and Inspection: able to speak in complete sentences GI soft to palpation and non-tender Extremity full ROM Skin Lesions: lesion noted Wounds: wounds noted Neuro oriented x3, CN's II-XII intact bilaterally and moves all extremities Psych mental status grossly normal Appearance: grossly normal Attitude: calm Speech: normal speech Debridement Note Debridement Note Wound debrided: Left hand Type of Debridement: Excisional debridement Anesthesia Used: 4% Lidocaine Solution Depth: Down to and including healthy tissue and in the subcutaneous layer Percentage of wound debrided: 100 Instrument Used: 3mm curette Tissue Removed: Slough and devitalized tissue Severity: Fat Layer Exposed Amount of bleeding with debridement: Mild Bleeding Controlled with: Pressure Patient tolerated procedure: Patient tolerated procedure well Post-Debridement Measurements and Additional Note: Post-Debridement Measurements/Treatment WC - Nurse 1 - General Ulcer Assessment Start: 03/18/22 09:05 Freq: Status: Active Protocol: AMANDA Activity Type Activity Date Activity User E-sign Co-sign Detail Recorded Client Recorded Date Recorded By Document 03/18/22 09:05 YANET [id number] 03/18/22 09:16 JF Document 03/25/22 09:00 BMF [id number] 03/25/22 09:07 BMF Document 03/29/22 08:03 KR [id number] 03/29/22 08:05 KR Document 04/01/22 08:06 BMF [id number] 04/01/22 08:12 BMF 03/18/22 03/25/22 03/29/22 09:05 09:00 08:03 WC - Today's Visit Information Type of service Follow-up Visit Follow-up Visit Nurse-only (Physician/COMPREHENSIVE OPHTHALMOLOGIST (Physician/COMPREHENSIVE OPHTHALMOLOGIST Visit ) ) Arrival Mode Ambulatory Ambulatory Ambulatory Transfer Assistance None Patient Identification Verified (Name & Yes Yes Yes ) Patient Requires Transmission-Based No Precautions Height and Weight Body Mass Index (BMI) 42.8 42.8 42.8 BMI Classification Obese Obese Obese Vital Signs Temperature (97.8 F-99.1 F) 97.5 F L 97.3 F L 97.5 F L Temperature Source Temporal Temporal Temporal Pulse Rate (60-100) 70 75 79 Pulse Location Monitor Monitor Monitor Respiratory Rate (12-18) 18 18 Respiratory rate source Observation Observation Oxygen Delivery Method Blood Pressure (90/60-120/80) 143/87 H 147/63 H 139/75 H Blood Pressure Mean (mm Hg) 105 91 96 Source Monitor Monitor Monitor Position Semi-Fowlers Sitting Sitting Blood Pressure Location Right Arm Left Arm Left Arm History Since Last Visit- (Skip if this is Patient's initial visit) Have you changed medications since your No No No last visit? Any new allergies or adverse reactions No No No Had a fall/change in ADL's that may No No No increase risk of falls Signs or symptoms of abuse and/or No No No neglect since last visit Have you been in the hospital since your No No No last visit? Has dressing in place as prescribed Yes Yes Yes Has compression in place as prescribed N/A No N/A Has offloadiing in place as prescribed N/A No N/A Experienced any changes in pain level or No No No management Left Footwear Regular Shoe Regular Shoe Right Footwear Regular Shoe Regular Shoe Pain Scale: 0-10 Numeric Is Patient Pain Free? Yes Yes Yes 04/01/22 08:06 - Today's Visit Information Type of service Follow-up Visit (Physician/COMPREHENSIVE OPHTHALMOLOGIST ) Arrival Mode Ambulatory Transfer Assistance None Patient Identification Verified (Name & Yes ) Patient Requires Transmission-Based No Precautions Height and Weight Body Mass Index (BMI) 42.8 BMI Classification Obese Vital Signs Temperature (97.8 F-99.1 F) 96.2 F L Temperature Source Temporal Pulse Rate (60-100) 83 Pulse Location Monitor Respiratory Rate (12-18) 18 Respiratory rate source Observation Oxygen Delivery Method Room Air Blood Pressure (90/60-120/80) 164/74 H Blood Pressure Mean (mm Hg) 104 Source Monitor Position Sitting Blood Pressure Location Right Arm History Since Last Visit- (Skip if this is Patient's initial visit) Have you changed medications since your No last visit? Any new allergies or adverse reactions No Had a fall/change in ADL's that may No increase risk of falls Signs or symptoms of abuse and/or No neglect since last visit Have you been in the hospital since your No last visit? Has dressing in place as prescribed Yes Has compression in place as prescribed N/A Has offloadiing in place as prescribed N/A Experienced any changes in pain level or No management Left Footwear Regular Shoe Right Footwear Regular Shoe Pain Scale: 0-10 Numeric Is Patient Pain Free? Yes - Nurse 1 - General Ulcer Measurement Start: 03/18/22 09:05 Freq: Status: Active Protocol: Activity Type Activity Date Activity User E-sign Co-sign Detail Recorded Client Recorded Date Recorded By Document 03/18/22 09:05 YANET [id number] 03/18/22 09:16 YANET Document 03/25/22 09:00 [facility] [id number] 03/25/22 09:07 [facility] Document 04/01/22 08:06 [facility] [id number] 04/01/22 08:12 [facility] 03/18/22 03/25/22 04/01/22 09:05 09:00 08:06 Wound Center Nurse 1 #3 LEFT HAND -Combined with other wound No No No -Current Size (cm) - Length 0.7 0.1 1 -Current Size (cm) - Width 0.5 0.4 1 -Current Size (cm) - Depth 0.1 0.1 0.1 -Total Square Cm 0.35 0.04 1 -Date of Last Picture (Recall this 04/01/22 field) -Photo Taken Yes Yes Yes -Epithelialization Large 67-100% None Present -Tunneling No No No -Undermining/Tunneling No No No -Circular Undermining No No No -Exudate Amt Small Small -Exudate Type Serosanguineous Serosanguineous -Wound Margin Flat & Intact Distinct, Outline Attached -Granulation Amt Large (67-100%) Medium (34-66%) Large (67-100%) -Granulation Quality Red Stur[place]vant Red -Slough/Fibrin Yes Yes No -Necrosis Amt Small (1-33%) Small (1-33%) None Present (0 %) -Necrotic Tissue Type Adherent Slough Adherent Slough -Structure Exposed None/Limited to N/A Skin Breakdown -Texture ([place]-wound Skin Appearance) Assessed Assessed, Assessed, Scarring Scarring -Moisture ([place]-wound Skin Appearance) Assessed,Dry/ Assessed Assessed Scaly -Color ([place]-wound Skin Appearance) Assessed Assessed Assessed -Temperature ([place]-wound Skin No Abnormality No Abnormality No Abnormality Appearance) (Pt Warm) (Pt Warm) (Pt Warm) -Tenderness on Palpation ([place]-wound No No No Skin Appearance) -Ulcer Cleansing Rinsed/ Wound Cleanser Rinsed/ Irrigated with Irrigated with Saline Saline -Foul Odor after Cleansing No No Yes, Due to Product Use -Anesthetic Used 4% Lidocaine 5% Lidocaine 4% Lidocaine Solution Gel Solution 2-left superior FA -Combined with other wound No No No -Current Size (cm) - Length 0.1 0.2 0.6 -Current Size (cm) - Width 0.1 0.4 0.8 -Current Size (cm) - Depth 0.1 0.1 0.1 -Total Square Cm 0.01 0.08 0.48 -Date of Last Picture (Recall this 04/01/22 field) -Photo Taken Yes Yes Yes -Epithelialization Large 67-100% None Present -Tunneling No No No -Undermining/Tunneling No No No -Circular Undermining No No No -Exudate Amt Small Medium Small -Exudate Type Serosanguineous Serosanguineous Serosanguineous -Wound Margin Flat & Intact Distinct, Distinct, Outline Outline Attached Attached -Granulation Amt Large (67-100%) Medium (34-66%) Large (67-100%) -Granulation Quality Red Stur[place] Red -Slough/Fibrin Yes Yes No -Necrosis Amt Small (1-33%) Small (1-33%) None Present (0 %) -Necrotic Tissue Type Adherent Slough Adherent Slough -Structure Exposed N/A N/A -Texture ([place]-wound Skin Appearance) Assessed Assessed, Assessed, Scarring Scarring -Moisture ([place]-wound Skin Appearance) Assessed,Dry/ Assessed Assessed Scaly -Color ([place]-wound Skin Appearance) Assessed Assessed Assessed -Temperature ([place]-wound Skin No Abnormality No Abnormality No Abnormality Appearance) (Pt Warm) (Pt Warm) (Pt Warm) -Tenderness on Palpation ([place]-wound No No No Skin Appearance) -Ulcer Cleansing Rinsed/ Wound Cleanser Rinsed/ Irrigated with Irrigated with Saline Saline -Foul Odor after Cleansing No No No -Anesthetic Used 4% Lidocaine 5% Lidocaine 5% Lidocaine Solution Gel Gel 1-left inferior FA -Combined with other wound No No No -Current Size (cm) - Length 0.4 0.6 0.8 -Current Size (cm) - Width 0.4 0.7 1 -Current Size (cm) - Depth 0.1 0.1 0.1 -Total Square Cm 0.16 0.42 0.8 -Date of Last Picture (Recall this 04/01/22 field) -Photo Taken Yes Yes Yes -Epithelialization Large 67-100% None Present -Tunneling No No No -Undermining/Tunneling No No -Circular Undermining No No No -Exudate Amt Small Medium Small -Exudate Type Serosanguineous Serosanguineous Serosanguineous -Wound Margin Flat & Intact Distinct, Distinct, Outline Outline Attached Attached -Granulation Amt Large (67-100%) Medium (34-66%) Large (67-100%) -Granulation Quality Red Stur[place] -Slough/Fibrin Yes Yes No -Necrosis Amt Small (1-33%) Medium (34-66%) None Present (0 %) -Necrotic Tissue Type Adherent Slough Adherent Slough -Structure Exposed N/A N/A -Texture ([place]-wound Skin Appearance) Assessed Assessed, Assessed, Scarring Fluctuance -Moisture ([place]-wound Skin Appearance) Assessed,Dry/ Assessed Assessed Scaly -Color ([place]-wound Skin Appearance) Assessed Assessed Assessed -Temperature ([place]-wound Skin No Abnormality No Abnormality No Abnormality Appearance) (Pt Warm) (Pt Warm) (Pt Warm) -Tenderness on Palpation ([place]-wound No No No Skin Appearance) -Ulcer Cleansing Rinsed/ Wound Cleanser Rinsed/ Irrigated with Irrigated with Saline Saline -Foul Odor after Cleansing No No No -Anesthetic Used 4% Lidocaine 5% Lidocaine 5% Lidocaine Solution Gel Gel Lower Limb Edema Present NA WC - Nurse 2 - General Ulcer CM Notes Start: 03/18/22 09:05 Freq: Status: Active Protocol: Activity Type Activity Date Activity User E-sign Co-sign Detail Recorded Client Recorded Date Recorded By Document 03/18/22 09:47 MW [id number] 03/18/22 09:49 MW Document 03/25/22 09:19 MW [id number] 03/25/22 09:22 MW Document 04/01/22 08:31 MW [id number] 04/01/22 08:38 MW 03/18/22 03/25/22 04/01/22 09:47 09:19 08:31 Wound Center Nurse 2 #3 LEFT HAND -Time 09:47 09:19 08:31 -Correct Patient Yes Yes Yes -Correct Side, Site, Position Yes Yes Yes -Correct Procedure Yes Yes Yes -Procedure Performed Yes Yes Yes -Type of Procedure Debridement Debridement Incision & Drainage -Clinical Debridement Epidermis / Epidermis / Subcutaneous Dermis Dermis -Tissue Removed Epidermis Epidermis Subcutaneous -Post Debridement (cm) - Length 0.5 0.1 1.0 -Post Debridement (cm) - Width 0.9 0.9 1.0 -Post Debridement (cm) - Depth 0.1 0.1 0.1 -Total Square (Post) (cm) 0.45 0.09 1.00 -Area of Debridement (cm) - Length 0.5 0.1 1.0 -Area of Debridement (cm) - Width 0.9 0.9 1.0 -Total Square (Area) (cm) 0.45 0.09 1.00 -Tunneling No No No -Undermining/Tunneling No No No -Circular Undermining No No No -Wound/Ulcer Outcome Not Healed Not Healed Not Healed -Ulcer Cleansing Rinsed/ Rinsed/ Rinsed/ Irrigated with Irrigated with Irrigated with Saline Saline Saline -Foul Odor after Cleansing No No No -Bioengineered Tissue No No No -Bleeding Controlled with Pressure Pressure Pressure -Treatment Response Procedure Procedure Procedure Tolerated Well Tolerated Well Tolerated Well -Offloading No No No -Debridement - Open, 1st 20sq cm Yes Yes -Debridement - Subq, 1st 20sq cm Yes 2-left superior FA -Time 09:48 09:20 08:31 -Correct Patient Yes Yes Yes -Correct Side, Site, Position Yes Yes Yes -Correct Procedure Yes Yes Yes -Procedure Performed Yes Yes Yes -Type of Procedure Debridement Debridement Debridement -Clinical Debridement Epidermis / Epidermis / Subcutaneous Dermis Dermis -Tissue Removed Epidermis Epidermis Subcutaneous -Post Debridement (cm) - Length 0.4 0.4 0.5 -Post Debridement (cm) - Width 0.3 0.6 0.5 -Post Debridement (cm) - Depth 0.1 0.1 0.1 -Total Square (Post) (cm) 0.12 0.24 0.25 -Area of Debridement (cm) - Length 0.4 0.4 0.5 -Area of Debridement (cm) - Width 0.3 0.6 0.5 -Total Square (Area) (cm) 0.12 0.24 0.25 -Tunneling No No No -Undermining/Tunneling No No No -Circular Undermining No No No -Wound/Ulcer Outcome Not Healed Not Healed Not Healed -Ulcer Cleansing Rinsed/ Rinsed/ Rinsed/ Irrigated with Irrigated with Irrigated with Saline Saline Saline -Foul Odor after Cleansing No No No -Bioengineered Tissue No No No -Bleeding Controlled with Pressure Pressure Pressure -Treatment Response Procedure Procedure Procedure Tolerated Well Tolerated Well Tolerated Well -Offloading No No No -Debridement - Open, 1st 20sq cm No No -Debridement - Subq, 1st 20sq cm No 1-left inferior FA -Time 09:48 09:20 08:32 -Correct Patient Yes Yes Yes -Correct Side, Site, Position Yes Yes Yes -Correct Procedure Yes Yes Yes -Procedure Performed Yes Yes Yes -Type of Procedure Debridement Debridement Debridement -Clinical Debridement Epidermis / Epidermis / Subcutaneous Dermis Dermis -Tissue Removed Epidermis Epidermis Subcutaneous -Post Debridement (cm) - Length 0.1 0.8 0.9 -Post Debridement (cm) - Width 0.1 0.8 1.0 -Post Debridement (cm) - Depth 0.1 0.1 0.1 -Total Square (Post) (cm) 0.01 0.64 0.90 -Area of Debridement (cm) - Length 0.1 0.8 0.9 -Area of Debridement (cm) - Width 0.1 0.8 1.0 -Total Square (Area) (cm) 0.01 0.64 0.90 -Tunneling No No No -Undermining/Tunneling No No No -Circular Undermining No No No -Wound/Ulcer Outcome Not Healed Not Healed Not Healed -Ulcer Cleansing Rinsed/ Rinsed/ Rinsed/ Irrigated with Irrigated with Irrigated with Saline Saline Saline -Foul Odor after Cleansing No No No -Bioengineered Tissue No No No -Bleeding Controlled with Pressure Pressure Pressure -Treatment Response Procedure Procedure Procedure Tolerated Well Tolerated Well Tolerated Well -Offloading No No No -Debridement - Open, 1st 20sq cm No No -Debridement - Subq, 1st 20sq cm No Pain Scale: 0-10 Numeric Is Patient Pain Free? Yes Yes Yes WC - Nurse 3 - General Ulcer D/C NN Start: 03/18/22 09:05 Freq: Status: Active Protocol: Activity Type Activity Date Activity User E-sign Co-sign Detail Recorded Client Recorded Date Recorded By Document 03/18/22 10:04 DL [id number] 03/18/22 10:06 DL Document 03/25/22 09:35 RB [id number] 03/25/22 09:37 RB Document 03/29/22 08:03 KR [id number] 03/29/22 08:05 KR Document 04/01/22 08:41 BMF [id number] 04/01/22 08:43 BMF 03/18/22 03/25/22 03/29/22 10:04 09:35 08:03 Wound Care Nurse 3 #3 LEFT HAND -Ulcer Cleansing Rinsed/ Rinsed/ Irrigated with Irrigated with Saline Saline -Foul Odor after Cleansing No -Primary Dressing Applied NonAdherent C Hydrogel ($), C Hydrogel ($), Contact Layer, NonAdherent NonAdherent Promogran Contact Layer Contact Layer -Other Dressing coban -Primary Dressing Covered/Secured with Dry Gauze & Dry Gauze,Dry Dry Gauze Roll Gauze, Gauze & Roll Secured with Gauze,Secured Tape with Tape -Other Covering -Promogran 1 -Promogran Xochilt Matter 2-left superior FA -Ulcer Cleansing Rinsed/ Irrigated with Saline -Foul Odor after Cleansing No -Primary Dressing Applied NonAdherent NonAdherent C Hydrogel ($), Contact Layer Contact Layer NonAdherent Contact Layer -Other Dressing promogran hydrogel coban -Primary Dressing Covered/Secured with Dry Gauze & Dry Gauze,Dry Dry Gauze Roll Gauze, Gauze & Roll Secured with Gauze,Secured Tape with Tape -Other Covering coban -Promogran Xochilt Matter 1-left inferior FA -Ulcer Cleansing Rinsed/ Rinsed/ Irrigated with Irrigated with Saline Saline -Foul Odor after Cleansing No -Primary Dressing Applied NonAdherent NonAdherent C Hydrogel ($), Contact Layer Contact Layer NonAdherent Contact Layer -Other Dressing promogran hydrogel coban -Primary Dressing Covered/Secured with Dry Gauze & Dry Gauze,Dry Dry Gauze Roll Gauze, Gauze & Roll Secured with Gauze,Secured Tape with Tape -Promogran Xochilt Matter Treatment Response Procedure Procedure Tolerated Well Tolerated Well Vital Signs Temperature (97.8 F-99.1 F) 97.5 F L Temperature Source Temporal Pulse Rate (60-100) 79 Pulse Location Monitor Blood Pressure (90/60-120/80) 139/75 H Blood Pressure Mean (mm Hg) 96 Source Monitor Position Sitting Blood Pressure Location Left Arm Pain Scale: 0-10 Numeric Is Patient Pain Free? Yes Yes Yes WC - Visit Discharge Discharge Condition Stable Stable Stable Ambulatory Status Ambulatory Ambulatory Ambulatory Transportation Private Auto Private Auto Private Auto Accompanied by Medication Reconcilliation completed & No provided to patient/care provider Clinical Summary of Care Provided Yes 04/01/22 08:41 Wound Care Nurse 3 #3 LEFT HAND -Ulcer Cleansing Rinsed/ Irrigated with Saline -Foul Odor after Cleansing No -Primary Dressing Applied NonAdherent Contact Layer -Other Dressing drsg per [place] otolaryngology physician -Primary Dressing Covered/Secured with Dry Gauze & Roll Gauze, Secured with Tape,Other -Other Covering spandage -Promogran -Promogran Xochilt Matter 1 2-left superior FA -Ulcer Cleansing Soap and Water -Foul Odor after Cleansing -Primary Dressing Applied NonAdherent Contact Layer, Promogran Xochilt Matter -Other Dressing spandage, drsg per [place] otolaryngology physician -Primary Dressing Covered/Secured with Dry Gauze & Roll Gauze, Secured with Tape -Other Covering -Promogran Xochilt Matter 0 1-left inferior FA -Ulcer Cleansing Rinsed/ Irrigated with Saline -Foul Odor after Cleansing No -Primary Dressing Applied NonAdherent Contact Layer, Promogran Xochilt Matter -Other Dressing spandage; drsg per [place] otolaryngology physician -Primary Dressing Covered/Secured with Dry Gauze & Roll Gauze, Secured with Tape -Promogran Xochilt Matter 0 Treatment Response Procedure Tolerated Well Vital Signs Temperature (97.8 F-99.1 F) Temperature Source Pulse Rate (60-100) Pulse Location Blood Pressure (90/60-120/80) Blood Pressure Mean (mm Hg) Source Position Blood Pressure Location Pain Scale: 0-10 Numeric Is Patient Pain Free? Yes WC - Visit Discharge Discharge Condition Stable Ambulatory Status Ambulatory Transportation Private Auto Accompanied by Medication Reconcilliation completed & provided to patient/care provider Clinical Summary of Care Provided Additional Wound Wound debrided: Left forearm (inferior) Type of Debridement: Excisional debridement Anesthesia Used: 4% Lidocaine Solution Depth: Down to and including healthy tissue and in the subcutaneous layer Percentage of wound debrided: 100 Instrument Used: 3mm curette Tissue Removed: Slough and devitalized tissue Severity: Fat Layer Exposed Amount of bleeding with debridement: Mild Bleeding Controlled with: Pressure Patient tolerated procedure: Patient tolerated procedure well Additional Wound Wound debrided: Left forearm (superior) Type of Debridement: Excisional debridement Anesthesia Used: 4% Lidocaine Solution Depth: Down to and including healthy tissue and in the subcutaneous layer Percentage of wound debrided: 100 Instrument Used: 3mm curette Tissue Removed: Slough and devitalized tissue Severity: Fat Layer Exposed Amount of bleeding with debridement: Mild Bleeding Controlled with: Pressure Patient tolerated procedure: Patient tolerated procedure well Assessment/Plan Assessment/Plan (1) Ulcer of upper extremity with fat layer exposed: CODE(S): L98.492 - Non-pressure chronic ulcer of skin of other sites with fat layer exposed (2) Abscess: CODE(S): L02.91 - Cutaneous abscess, unspecified (3) Debility: CODE(S): R53.81 - Other malaise PLAN: Plan No significant improvement. Again I am not quite sure why. I would expect that this should heal. We will switch to Promogran and change daily. Cover with Adaptic. Clear instructions given to patient and his on what to do. Do not leave open to air which he was doing in the past. No Band-Aid over it as well which he also was doing. Compliance with instructions strongly recommended. No history of diabetes and normal A1c at 5.1. Increase protein intake, vitamin C, D and zinc discussed. Continue other chronic care management. His questions were answered and he was advised to call with any further questions or concerns. Follow-up in 1 week. This note was generated with [employer] dictation software. It may contain incorrect words, spelling, and punctuation that were not noted in checking the note before signing.
[2022-04-08 09:50] VITALS: BP 143/85; PULSE 64; RESP 18; TEMP 36.1; BMI 42.8
--- NOTE | 2022-04-08 11:20 | PCM.WC.PN ---
History of Present Illness Date of Service: 04/08/22 Chief Complaint: Left Forearm Ulcer History of Wound: Mr Elaine is a 62 yo was referred to the wound center by his primary care physician due to nonhealing left forearm ulcers. Symptoms started months ago. Said to have started with swelling which become subsequently ulcerated. Denies any known precipitating factor. Has tried topical antibiotics and oral antibiotics without any significant improvement. No chills or fever. No prior or similar history in the past. Denies any history of diabetes mellitus. Minimal drainage from the ulcers. At this time, he denies chills, fever or otherwise feeling of unwell. Progress of Wound: Has been applying Promogran daily with Adaptic. Some improvement. Superior ulcer is healed. Subjective Subjective No new concerns at this time Objective Data Objective Data Vital Signs: Vital Signs Temp Pulse Resp BP 97 F L 64 18 143/85 H 04/08/22 09:50 04/08/22 09:50 04/08/22 09:50 04/08/22 09:50 Oxygen Delivery Method Room Air Weight: 307 lb Body Mass Index (BMI) 42.8 Charges/Coding Procedures Integumentary 111xxx-113xx: [id number] Evi subq tissue 20 sq cm/< Physical Exam Const alert, oriented x3 and no apparent distress General Appearance: cooperative, comfortable and well kempt HEENT normocephalic, head/scalp atraumatic and hearing grossly normal bilaterally Eyes PERRL and EOMs intact bilaterally General Eye: normal appearance of both eyes Neck full ROM General: normal visual inspection Resp normal respiratory effort Effort and Inspection: able to speak in complete sentences GI soft to palpation and non-tender Extremity full ROM Skin Lesions: lesion noted Wounds: wounds noted Neuro oriented x3, CN's II-XII intact bilaterally and moves all extremities Psych mental status grossly normal Appearance: grossly normal Attitude: calm Speech: normal speech Debridement Note Debridement Note Wound debrided: Left hand Type of Debridement: Excisional debridement Anesthesia Used: 4% Lidocaine Solution Depth: Down to and including healthy tissue and in the subcutaneous layer Percentage of wound debrided: 100 Instrument Used: 3mm curette Tissue Removed: Slough and devitalized tissue Severity: Fat Layer Exposed Amount of bleeding with debridement: Mild Bleeding Controlled with: Pressure Patient tolerated procedure: Patient tolerated procedure well Post-Debridement Measurements and Additional Note: Post-Debridement Measurements/Treatment WC - Nurse 1 - General Ulcer Assessment Start: 03/18/22 09:05 Freq: Status: Active Protocol: LISA.LOWEXT Activity Type Activity Date Activity User E-sign Co-sign Detail Recorded Client Recorded Date Recorded By Document 03/18/22 09:05 JF [id number] 03/18/22 09:16 JF Document 03/25/22 09:00 BMF [id number] 03/25/22 09:07 BMF Document 03/29/22 08:03 KR [id number] 03/29/22 08:05 KR Document 04/01/22 08:06 BMF [id number] 04/01/22 08:12 BM Document 04/08/22 09:50 MT [id number] 04/08/22 10:06 MT 03/18/22 03/25/22 03/29/22 09:05 09:00 08:03 - Today's Visit Information Type of service Follow-up Visit Follow-up Visit Nurse-only (Physician/FLYER REPAIRER (Physician/FLYER REPAIRER Visit ) ) Arrival Mode Ambulatory Ambulatory Ambulatory Transfer Assistance None Patient Identification Verified (Name & Yes Yes Yes ) Patient Requires Transmission-Based No Precautions Height and Weight Body Mass Index (BMI) 42.8 42.8 42.8 BMI Classification Obese Obese Obese Vital Signs Temperature (97.8 F-99.1 F) 97.5 F L 97.3 F L 97.5 F L Temperature Source Temporal Temporal Temporal Pulse Rate (60-100) 70 75 79 Pulse Location Monitor Monitor Monitor Respiratory Rate (12-18) 18 18 Respiratory rate source Observation Observation Oxygen Delivery Method Blood Pressure (90/60-120/80) 143/87 H 147/63 H 139/75 H Blood Pressure Mean (mm Hg) 105 91 96 Source Monitor Monitor Monitor Position Semi-Fowlers Sitting Sitting Blood Pressure Location Right Arm Left Arm Left Arm History Since Last Visit- (Skip if this is Patient's initial visit) Have you changed medications since your No No No last visit? Any new allergies or adverse reactions No No No Had a fall/change in ADL's that may No No No increase risk of falls Signs or symptoms of abuse and/or No No No neglect since last visit Have you been in the hospital since your No No No last visit? Has dressing in place as prescribed Yes Yes Yes Has compression in place as prescribed N/A No N/A Has offloadiing in place as prescribed N/A No N/A Experienced any changes in pain level or No No No management Left Footwear Regular Shoe Regular Shoe Right Footwear Regular Shoe Regular Shoe Pain Scale: 0-10 Numeric Is Patient Pain Free? Yes Yes Yes 04/01/22 04/08/22 08:06 09:50 - Today's Visit Information Type of service Follow-up Visit Follow-up Visit (Physician/FLYER REPAIRER (Physician/FLYER REPAIRER ) ) Arrival Mode Ambulatory Ambulatory Transfer Assistance None Patient Identification Verified (Name & Yes Yes ) Patient Requires Transmission-Based No Precautions Height and Weight Body Mass Index (BMI) 42.8 42.8 BMI Classification Obese Obese Vital Signs Temperature (97.8 F-99.1 F) 96.2 F L 97 F L Temperature Source Temporal Temporal Pulse Rate (60-100) 83 64 Pulse Location Monitor Monitor Respiratory Rate (12-18) 18 18 Respiratory rate source Observation Observation Oxygen Delivery Method Room Air Room Air Blood Pressure (90/60-120/80) 164/74 H 143/85 H Blood Pressure Mean (mm Hg) 104 104 Source Monitor Monitor Position Sitting Sitting Blood Pressure Location Right Arm History Since Last Visit- (Skip if this is Patient's initial visit) Have you changed medications since your No last visit? Any new allergies or adverse reactions No Had a fall/change in ADL's that may No increase risk of falls Signs or symptoms of abuse and/or No neglect since last visit Have you been in the hospital since your No last visit? Has dressing in place as prescribed Yes Yes Has compression in place as prescribed N/A Yes Has offloadiing in place as prescribed N/A Yes Experienced any changes in pain level or No Yes management Left Footwear Regular Shoe Regular Shoe Right Footwear Regular Shoe Regular Shoe Pain Scale: 0-10 Numeric Is Patient Pain Free? Yes Yes - Nurse 1 - General Ulcer Measurement Start: 03/18/22 09:05 Freq: Status: Active Protocol: Activity Type Activity Date Activity User E-sign Co-sign Detail Recorded Client Recorded Date Recorded By Document 03/18/22 09:05 YANET [id number] 03/18/22 09:16 Document 03/25/22 09:00 [facility] [id number] 03/25/22 09:07 [facility] Document 04/01/22 08:06 [facility] [id number] 04/01/22 08:12 [facility] Document 04/08/22 09:50 MA [id number] 04/08/22 10:06 MA 03/18/22 03/25/22 04/01/22 09:05 09:00 08:06 Wound Center Nurse 1 #3 LEFT HAND -Combined with other wound No No No -Current Size (cm) - Length 0.7 0.1 1 -Current Size (cm) - Width 0.5 0.4 1 -Current Size (cm) - Depth 0.1 0.1 0.1 -Total Square Cm 0.35 0.04 1 -Date of Last Picture (Recall this 04/01/22 field) -Photo Taken Yes Yes Yes -Epithelialization Large 67-100% None Present -Tunneling No No No -Undermining/Tunneling No No No -Circular Undermining No No No -Exudate Amt Small Small -Exudate Type Serosanguineous Serosanguineous -Wound Margin Flat & Intact Distinct, Outline Attached -Granulation Amt Large (67-100%) Medium (34-66%) Large (67-100%) -Granulation Quality Red [place] Red -Slough/Fibrin Yes Yes No -Necrosis Amt Small (1-33%) Small (1-33%) None Present (0 %) -Necrotic Tissue Type Adherent Slough Adherent Slough -Structure Exposed None/Limited to N/A Skin Breakdown -Texture ([place]-wound Skin Appearance) Assessed Assessed, Assessed, Scarring Scarring -Moisture ([place]-wound Skin Appearance) Assessed,Dry/ Assessed Assessed Scaly -Color ([place]-wound Skin Appearance) Assessed Assessed Assessed -Temperature ([place]-wound Skin No Abnormality No Abnormality No Abnormality Appearance) (Pt Warm) (Pt Warm) (Pt Warm) -Tenderness on Palpation ([place]-wound No No No Skin Appearance) -Ulcer Cleansing Rinsed/ Wound Cleanser Rinsed/ Irrigated with Irrigated with Saline Saline -Foul Odor after Cleansing No No Yes, Due to Product Use -Anesthetic Used 4% Lidocaine 5% Lidocaine 4% Lidocaine Solution Gel Solution 2-left superior FA -Combined with other wound No No No -Current Size (cm) - Length 0.1 0.2 0.6 -Current Size (cm) - Width 0.1 0.4 0.8 -Current Size (cm) - Depth 0.1 0.1 0.1 -Total Square Cm 0.01 0.08 0.48 -Date of Last Picture (Recall this 04/01/22 field) -Photo Taken Yes Yes Yes -Epithelialization Large 67-100% None Present -Tunneling No No No -Undermining/Tunneling No No No -Circular Undermining No No No -Exudate Amt Small Medium Small -Exudate Type Serosanguineous Serosanguineous Serosanguineous -Wound Margin Flat & Intact Distinct, Distinct, Outline Outline Attached Attached -Granulation Amt Large (67-100%) Medium (34-66%) Large (67-100%) -Granulation Quality Red [place] Red -Slough/Fibrin Yes Yes No -Necrosis Amt Small (1-33%) Small (1-33%) None Present (0 %) -Necrotic Tissue Type Adherent Slough Adherent Slough -Structure Exposed N/A N/A -Texture ([place]-wound Skin Appearance) Assessed Assessed, Assessed, Scarring Scarring -Moisture ([place]-wound Skin Appearance) Assessed,Dry/ Assessed Assessed Scaly -Color ([place]-wound Skin Appearance) Assessed Assessed Assessed -Temperature ([place]-wound Skin No Abnormality No Abnormality No Abnormality Appearance) (Pt Warm) (Pt Warm) (Pt Warm) -Tenderness on Palpation ([place]-wound No No No Skin Appearance) -Ulcer Cleansing Rinsed/ Wound Cleanser Rinsed/ Irrigated with Irrigated with Saline Saline -Foul Odor after Cleansing No No No -Anesthetic Used 4% Lidocaine 5% Lidocaine 5% Lidocaine Solution Gel Gel 1-left inferior FA -Combined with other wound No No No -Current Size (cm) - Length 0.4 0.6 0.8 -Current Size (cm) - Width 0.4 0.7 1 -Current Size (cm) - Depth 0.1 0.1 0.1 -Total Square Cm 0.16 0.42 0.8 -Date of Last Picture (Recall this 04/01/22 field) -Photo Taken Yes Yes Yes -Epithelialization Large 67-100% None Present -Tunneling No No No -Undermining/Tunneling No No -Circular Undermining No No No -Exudate Amt Small Medium Small -Exudate Type Serosanguineous Serosanguineous Serosanguineous -Wound Margin Flat & Intact Distinct, Distinct, Outline Outline Attached Attached -Granulation Amt Large (67-100%) Medium (34-66%) Large (67-100%) -Granulation Quality Red [place] -Slough/Fibrin Yes Yes No -Necrosis Amt Small (1-33%) Medium (34-66%) None Present (0 %) -Necrotic Tissue Type Adherent Slough Adherent Slough -Structure Exposed N/A N/A -Texture ([place]-wound Skin Appearance) Assessed Assessed, Assessed, Scarring Fluctuance -Moisture ([place]-wound Skin Appearance) Assessed,Dry/ Assessed Assessed Scaly -Color ([place]-wound Skin Appearance) Assessed Assessed Assessed -Temperature ([place]-wound Skin No Abnormality No Abnormality No Abnormality Appearance) (Pt Warm) (Pt Warm) (Pt Warm) -Tenderness on Palpation ([place]-wound No No No Skin Appearance) -Ulcer Cleansing Rinsed/ Wound Cleanser Rinsed/ Irrigated with Irrigated with Saline Saline -Foul Odor after Cleansing No No No -Anesthetic Used 4% Lidocaine 5% Lidocaine 5% Lidocaine Solution Gel Gel Lower Limb Edema Present NA 04/08/22 09:50 Wound Center Nurse 1 #3 LEFT HAND -Combined with other wound -Current Size (cm) - Length 0.5 -Current Size (cm) - Width 0.7 -Current Size (cm) - Depth 0.1 -Total Square Cm 0.35 -Date of Last Picture (Recall this field) -Photo Taken -Epithelialization -Tunneling -Undermining/Tunneling -Circular Undermining -Exudate Amt Large -Exudate Type Sanguineous -Wound Margin Flat & Intact -Granulation Amt Large (67-100%) -Granulation Quality Pale,[place] -Slough/Fibrin -Necrosis Amt None Present (0 %) -Necrotic Tissue Type -Structure Exposed -Texture ([place]-wound Skin Appearance) Assessed -Moisture ([place]-wound Skin Appearance) Assessed -Color ([place]-wound Skin Appearance) Assessed -Temperature ([place]-wound Skin No Abnormality Appearance) (Pt Warm) -Tenderness on Palpation ([place]-wound No Skin Appearance) -Ulcer Cleansing Rinsed/ Irrigated with Saline -Foul Odor after Cleansing No -Anesthetic Used 4% Lidocaine Solution 2-left superior FA -Combined with other wound -Current Size (cm) - Length 0.1 -Current Size (cm) - Width 0.1 -Current Size (cm) - Depth 0.1 -Total Square Cm 0.01 -Date of Last Picture (Recall this field) -Photo Taken -Epithelialization -Tunneling -Undermining/Tunneling -Circular Undermining -Exudate Amt None Present -Exudate Type -Wound Margin Flat & Intact -Granulation Amt -Granulation Quality -Slough/Fibrin -Necrosis Amt -Necrotic Tissue Type Eschar -Structure Exposed -Texture ([place]-wound Skin Appearance) Assessed -Moisture ([place]-wound Skin Appearance) Assessed -Color ([place]-wound Skin Appearance) Assessed -Temperature ([place]-wound Skin No Abnormality Appearance) (Pt Warm) -Tenderness on Palpation ([place]-wound No Skin Appearance) -Ulcer Cleansing Wound Cleanser -Foul Odor after Cleansing -Anesthetic Used 4% Lidocaine Solution 1-left inferior FA -Combined with other wound -Current Size (cm) - Length 0.1 -Current Size (cm) - Width 0.1 -Current Size (cm) - Depth 0.1 -Total Square Cm 0.01 -Date of Last Picture (Recall this field) -Photo Taken -Epithelialization -Tunneling -Undermining/Tunneling -Circular Undermining -Exudate Amt None Present -Exudate Type -Wound Margin Flat & Intact -Granulation Amt None Present (0 %) -Granulation Quality -Slough/Fibrin -Necrosis Amt None Present (0 %) -Necrotic Tissue Type Eschar -Structure Exposed -Texture ([place]-wound Skin Appearance) Assessed -Moisture ([place]-wound Skin Appearance) Assessed -Color ([place]-wound Skin Appearance) Assessed -Temperature ([place]-wound Skin No Abnormality Appearance) (Pt Warm) -Tenderness on Palpation ([place]-wound No Skin Appearance) -Ulcer Cleansing Wound Cleanser -Foul Odor after Cleansing -Anesthetic Used 4% Lidocaine Solution Lower Limb Edema Present NA WC - Nurse 2 - General Ulcer CM Notes Start: 03/18/22 09:05 Freq: Status: Active Protocol: Activity Type Activity Date Activity User E-sign Co-sign Detail Recorded Client Recorded Date Recorded By Document 03/18/22 09:47 MW [id number] 03/18/22 09:49 MW Document 03/25/22 09:19 MW [id number] 03/25/22 09:22 MW Document 04/01/22 08:31 MW [id number] 04/01/22 08:38 MW Document 04/08/22 10:45 MW [id number] 04/08/22 10:50 MW 03/18/22 03/25/22 04/01/22 09:47 09:19 08:31 Wound Center Nurse 2 #3 LEFT HAND -Time 09:47 09:19 08:31 -Correct Patient Yes Yes Yes -Correct Side, Site, Position Yes Yes Yes -Correct Procedure Yes Yes Yes -Procedure Performed Yes Yes Yes -Type of Procedure Debridement Debridement Incision & Drainage -Clinical Debridement Epidermis / Epidermis / Subcutaneous Dermis Dermis -Tissue Removed Epidermis Epidermis Subcutaneous -Post Debridement (cm) - Length 0.5 0.1 1.0 -Post Debridement (cm) - Width 0.9 0.9 1.0 -Post Debridement (cm) - Depth 0.1 0.1 0.1 -Total Square (Post) (cm) 0.45 0.09 1.00 -Area of Debridement (cm) - Length 0.5 0.1 1.0 -Area of Debridement (cm) - Width 0.9 0.9 1.0 -Total Square (Area) (cm) 0.45 0.09 1.00 -Tunneling No No No -Undermining/Tunneling No No No -Circular Undermining No No No -Wound/Ulcer Outcome Not Healed Not Healed Not Healed -Ulcer Cleansing Rinsed/ Rinsed/ Rinsed/ Irrigated with Irrigated with Irrigated with Saline Saline Saline -Foul Odor after Cleansing No No No -Bioengineered Tissue No No No -Bleeding Controlled with Pressure Pressure Pressure -Treatment Response Procedure Procedure Procedure Tolerated Well Tolerated Well Tolerated Well -Offloading No No No -Debridement - Open, 1st 20sq cm Yes Yes -Debridement - Subq, 1st 20sq cm Yes 2-left superior FA -Time 09:48 09:20 08:31 -Correct Patient Yes Yes Yes -Correct Side, Site, Position Yes Yes Yes -Correct Procedure Yes Yes Yes -Procedure Performed Yes Yes Yes -Type of Procedure Debridement Debridement Debridement -Clinical Debridement Epidermis / Epidermis / Subcutaneous Dermis Dermis -Tissue Removed Epidermis Epidermis Subcutaneous -Post Debridement (cm) - Length 0.4 0.4 0.5 -Post Debridement (cm) - Width 0.3 0.6 0.5 -Post Debridement (cm) - Depth 0.1 0.1 0.1 -Total Square (Post) (cm) 0.12 0.24 0.25 -Area of Debridement (cm) - Length 0.4 0.4 0.5 -Area of Debridement (cm) - Width 0.3 0.6 0.5 -Total Square (Area) (cm) 0.12 0.24 0.25 -Tunneling No No No -Undermining/Tunneling No No No -Circular Undermining No No No -Wound/Ulcer Outcome Not Healed Not Healed Not Healed -Ulcer Cleansing Rinsed/ Rinsed/ Rinsed/ Irrigated with Irrigated with Irrigated with Saline Saline Saline -Foul Odor after Cleansing No No No -Bioengineered Tissue No No No -Bleeding Controlled with Pressure Pressure Pressure -Treatment Response Procedure Procedure Procedure Tolerated Well Tolerated Well Tolerated Well -Offloading No No No -Debridement - Open, 1st 20sq cm No No -Debridement - Subq, 1st 20sq cm No 1-left inferior FA -Time 09:48 09:20 08:32 -Correct Patient Yes Yes Yes -Correct Side, Site, Position Yes Yes Yes -Correct Procedure Yes Yes Yes -Procedure Performed Yes Yes Yes -Type of Procedure Debridement Debridement Debridement -Clinical Debridement Epidermis / Epidermis / Subcutaneous Dermis Dermis -Tissue Removed Epidermis Epidermis Subcutaneous -Post Debridement (cm) - Length 0.1 0.8 0.9 -Post Debridement (cm) - Width 0.1 0.8 1.0 -Post Debridement (cm) - Depth 0.1 0.1 0.1 -Total Square (Post) (cm) 0.01 0.64 0.90 -Area of Debridement (cm) - Length 0.1 0.8 0.9 -Area of Debridement (cm) - Width 0.1 0.8 1.0 -Total Square (Area) (cm) 0.01 0.64 0.90 -Tunneling No No No -Undermining/Tunneling No No No -Circular Undermining No No No -Wound/Ulcer Outcome Not Healed Not Healed Not Healed -Ulcer Cleansing Rinsed/ Rinsed/ Rinsed/ Irrigated with Irrigated with Irrigated with Saline Saline Saline -Foul Odor after Cleansing No No No -Bioengineered Tissue No No No -Bleeding Controlled with Pressure Pressure Pressure -Treatment Response Procedure Procedure Procedure Tolerated Well Tolerated Well Tolerated Well -Offloading No No No -Debridement - Open, 1st 20sq cm No No -Debridement - Subq, 1st 20sq cm No Pain Scale: 0-10 Numeric Is Patient Pain Free? Yes Yes Yes 04/08/22 10:45 Wound Center Nurse 2 #3 LEFT HAND -Time 10:48 -Correct Patient Yes -Correct Side, Site, Position Yes -Correct Procedure Yes -Procedure Performed Yes -Type of Procedure Debridement -Clinical Debridement Subcutaneous -Tissue Removed Subcutaneous -Post Debridement (cm) - Length 0.6 -Post Debridement (cm) - Width 0.3 -Post Debridement (cm) - Depth 0.1 -Total Square (Post) (cm) 0.18 -Area of Debridement (cm) - Length 0.6 -Area of Debridement (cm) - Width 0.3 -Total Square (Area) (cm) 0.18 -Tunneling No -Undermining/Tunneling No -Circular Undermining No -Wound/Ulcer Outcome Not Healed -Ulcer Cleansing Rinsed/ Irrigated with Saline -Foul Odor after Cleansing No -Bioengineered Tissue No -Bleeding Controlled with Pressure -Treatment Response Procedure Tolerated Well -Offloading No -Debridement - Open, 1st 20sq cm -Debridement - Subq, 1st 20sq cm Yes 2-left superior FA -Time 10:49 -Correct Patient Yes -Correct Side, Site, Position Yes -Correct Procedure Yes -Procedure Performed No -Type of Procedure -Clinical Debridement -Tissue Removed -Post Debridement (cm) - Length 0 -Post Debridement (cm) - Width 0 -Post Debridement (cm) - Depth 0 -Total Square (Post) (cm) 0 -Area of Debridement (cm) - Length -Area of Debridement (cm) - Width -Total Square (Area) (cm) -Tunneling -Undermining/Tunneling -Circular Undermining -Wound/Ulcer Outcome Healed- Epithelialized -Ulcer Cleansing -Foul Odor after Cleansing -Bioengineered Tissue -Bleeding Controlled with -Treatment Response -Offloading -Debridement - Open, 1st 20sq cm -Debridement - Subq, 1st 20sq cm 1-left inferior FA -Time 10:49 -Correct Patient Yes -Correct Side, Site, Position Yes -Correct Procedure Yes -Procedure Performed Yes -Type of Procedure Debridement -Clinical Debridement Subcutaneous -Tissue Removed Subcutaneous -Post Debridement (cm) - Length 0.6 -Post Debridement (cm) - Width 0.4 -Post Debridement (cm) - Depth 0.1 -Total Square (Post) (cm) 0.24 -Area of Debridement (cm) - Length 0.6 -Area of Debridement (cm) - Width 0.4 -Total Square (Area) (cm) 0.24 -Tunneling No -Undermining/Tunneling No -Circular Undermining No -Wound/Ulcer Outcome Not Healed -Ulcer Cleansing Rinsed/ Irrigated with Saline -Foul Odor after Cleansing No -Bioengineered Tissue No -Bleeding Controlled with Pressure -Treatment Response Procedure Tolerated Well -Offloading No -Debridement - Open, 1st 20sq cm -Debridement - Subq, 1st 20sq cm No Pain Scale: 0-10 Numeric Is Patient Pain Free? Yes WC - Nurse 3 - General Ulcer D/C NN Start: 03/18/22 09:05 Freq: Status: Active Protocol: Activity Type Activity Date Activity User E-sign Co-sign Detail Recorded Client Recorded Date Recorded By Document 03/18/22 10:04 DL [id number] 03/18/22 10:06 DL Document 03/25/22 09:35 RB [id number] 03/25/22 09:37 RB Document 03/29/22 08:03 KR [id number] 03/29/22 08:05 KR Document 04/01/22 08:41 [facility] [id number] 04/01/22 08:43 BM Document 04/08/22 10:54 [facility] [id number] 04/08/22 10:55 F 03/18/22 03/25/22 03/29/22 10:04 09:35 08:03 Wound Care Nurse 3 #3 LEFT HAND -Ulcer Cleansing Rinsed/ Rinsed/ Irrigated with Irrigated with Saline Saline -Foul Odor after Cleansing No -Primary Dressing Applied NonAdherent C Hydrogel ($), C Hydrogel ($), Contact Layer, NonAdherent NonAdherent Promogran Contact Layer Contact Layer -Other Dressing coban -Primary Dressing Covered/Secured with Dry Gauze & Dry Gauze,Dry Dry Gauze Roll Gauze, Gauze & Roll Secured with Gauze,Secured Tape with Tape -Other Covering -Promogran 1 -Promogran Xochilt Matter 2-left superior FA -Ulcer Cleansing Rinsed/ Irrigated with Saline -Foul Odor after Cleansing No -Primary Dressing Applied NonAdherent NonAdherent C Hydrogel ($), Contact Layer Contact Layer NonAdherent Contact Layer -Other Dressing promogran hydrogel coban -Primary Dressing Covered/Secured with Dry Gauze & Dry Gauze,Dry Dry Gauze Roll Gauze, Gauze & Roll Secured with Gauze,Secured Tape with Tape -Other Covering coban -Promogran Xochilt Matter 1-left inferior FA -Ulcer Cleansing Rinsed/ Rinsed/ Irrigated with Irrigated with Saline Saline -Foul Odor after Cleansing No -Primary Dressing Applied NonAdherent NonAdherent C Hydrogel ($), Contact Layer Contact Layer NonAdherent Contact Layer -Other Dressing promogran hydrogel coban -Primary Dressing Covered/Secured with Dry Gauze & Dry Gauze,Dry Dry Gauze Roll Gauze, Gauze & Roll Secured with Gauze,Secured Tape with Tape -Promogran -Promogran Xochilt Matter Treatment Response Procedure Procedure Tolerated Well Tolerated Well Vital Signs Temperature (97.8 F-99.1 F) 97.5 F L Temperature Source Temporal Pulse Rate (60-100) 79 Pulse Location Monitor Blood Pressure (90/60-120/80) 139/75 H Blood Pressure Mean (mm Hg) 96 Source Monitor Position Sitting Blood Pressure Location Left Arm Pain Scale: 0-10 Numeric Is Patient Pain Free? Yes Yes Yes WC - Visit Discharge Discharge Condition Stable Stable Stable Ambulatory Status Ambulatory Ambulatory Ambulatory Transportation Private Auto Private Auto Private Auto Accompanied by Medication Reconcilliation completed & No provided to patient/care provider Clinical Summary of Care Provided Yes 04/01/22 04/08/22 08:41 10:54 Wound Care Nurse 3 #3 LEFT HAND -Ulcer Cleansing Rinsed/ Rinsed/ Irrigated with Irrigated with Saline Saline -Foul Odor after Cleansing No No -Primary Dressing Applied NonAdherent NonAdherent Contact Layer Contact Layer, Promogran -Other Dressing 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 DRSG PER MT RN -Primary Dressing Covered/Secured with Dry Gauze & Dry Gauze & Roll Gauze, Roll Gauze, Secured with Secured with Tape,Other Tape -Other Covering spandage -Promogran 1 -Promogran Xochilt Matter 1 2-left superior FA -Ulcer Cleansing Soap and Water Rinsed/ Irrigated with Saline -Foul Odor after Cleansing No -Primary Dressing Applied NonAdherent NonAdherent Contact Layer, Contact Layer Promogran Xochilt Matter -Other Dressing spandage, 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 -Primary Dressing Covered/Secured with Dry Gauze & Dry Gauze & Roll Gauze, Roll Gauze, Secured with Secured with Tape Tape -Other Covering DRSG PER MT RN -Promogran Xochilt Matter 0 1-left inferior FA -Ulcer Cleansing Rinsed/ Rinsed/ Irrigated with Irrigated with Saline Saline -Foul Odor after Cleansing No No -Primary Dressing Applied NonAdherent NonAdherent Contact Layer, Contact Layer, Promogran Promogran Xochilt Matter -Other Dressing spandage; drsg DRSG PER MT RN per 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 Yes Yes WC - Visit Discharge Discharge Condition Stable Stable Ambulatory Status Ambulatory Ambulatory Transportation Private Auto Private Auto Accompanied by Medication Reconcilliation completed & provided to patient/care provider Clinical Summary of Care Provided Additional Wound Wound debrided: Left forearm (inferior) Type of Debridement: Excisional debridement Anesthesia Used: 4% Lidocaine Solution Depth: Down to and including healthy tissue and in the subcutaneous layer Percentage of wound debrided: 100 Instrument Used: 3mm curette Tissue Removed: Slough and devitalized tissue Severity: Fat Layer Exposed Amount of bleeding with debridement: Mild Bleeding Controlled with: Pressure Patient tolerated procedure: Patient tolerated procedure well Assessment/Plan Assessment/Plan (1) Ulcer of upper extremity with fat layer exposed: CODE(S): L98.492 - Non-pressure chronic ulcer of skin of other sites with fat layer exposed (2) Abscess: CODE(S): L02.91 - Cutaneous abscess, unspecified (3) Debility: CODE(S): R53.81 - Other malaise PLAN: Plan Improvement noted this week. Superior ulcer is healed. Continue moistened Promogran, cover with Adaptic. Adaptic and gauze to superior ulcer which is healed. Compliance with instructions strongly recommended. No history of diabetes and normal A1c at 5.1. Increase protein intake, vitamin C, D and zinc discussed. Continue other chronic care management. His questions were answered and he was advised to call with any further questions or concerns. Follow-up in 2 weeks. This note was generated with [employer] dictation software. It may contain incorrect words, spelling, and punctuation that were not noted in checking the note before signing.
== END 2022-04-15 23:59 | disposition home or self-care (01) ==
LOC: WC 10:00
PROVIDERS: PCP Student in an Organized Health Care Education/Training Program; Referring Provider Internal Medicine; Visit Provider Internal Medicine
DX: L98.492 Non-pressure chronic ulcer of skin of other sites with fat layer exposed (principal); L02.91 Cutaneous abscess, unspecified; R53.81 Other malaise
CPT/HCPCS: 11042; 97597; 99213; G0463

== ENCOUNTER 2022-05-06 08:30 | Outpatient (RCR) | payer MEDICARE, MEDICAID, SELFPAY ==
[2022-04-16 00:18] VITALS: BP 143/85; PULSE 64; RESP 18; TEMP 36.1; BMI 42.8
[2022-04-22 09:58] VITALS: BP 174/82; PULSE 66; RESP 16; TEMP 36.6; BMI 42.8
--- NOTE | 2022-04-22 11:31 | PCM.WC.PN ---
History of Present Illness Date of Service: 04/22/22 Chief Complaint: Left Forearm Ulcer History of Wound: Mr Elaine is a 62 yo was referred to the wound center by his primary care physician due to nonhealing left forearm ulcers. Symptoms started months ago. Said to have started with swelling which become subsequently ulcerated. Denies any known precipitating factor. Has tried topical antibiotics and oral antibiotics without any significant improvement. No chills or fever. No prior or similar history in the past. Denies any history of diabetes mellitus. Minimal drainage from the ulcers. At this time, he denies chills, fever or otherwise feeling of unwell. Progress of Wound: No significant change. He states that he has been applying dressing as recommended however results have been rolling of. Subjective Subjective No new concerns at this time. Objective Data Objective Data Vital Signs: Vital Signs Temp Pulse Resp BP O2 Del Method 98 F 66 16 174/82 H Room Air 04/22/22 09:58 04/22/22 09:58 04/22/22 09:58 04/22/22 09:58 04/22/22 09:58 Oxygen Delivery Method Room Air Weight: 307 lb Body Mass Index (BMI) 42.8 Charges/Coding Procedures Integumentary 111xxx-113xx: 22585 Evi subq tissue 20 sq cm/< Physical Exam Const alert, oriented x3 and no apparent distress General Appearance: cooperative, comfortable and well kempt HEENT normocephalic, head/scalp atraumatic and hearing grossly normal bilaterally Eyes PERRL and EOMs intact bilaterally General Eye: normal appearance of both eyes Neck full ROM General: normal visual inspection Resp normal respiratory effort Effort and Inspection: able to speak in complete sentences GI soft to palpation and non-tender Extremity full ROM Skin Lesions: lesion noted Wounds: wounds noted Neuro oriented x3, CN's II-XII intact bilaterally and moves all extremities Psych mental status grossly normal Appearance: grossly normal Attitude: calm Speech: normal speech Debridement Note Debridement Note Wound debrided: Left hand Type of Debridement: Excisional debridement Anesthesia Used: 4% Lidocaine Solution Depth: Down to and including healthy tissue and in the subcutaneous layer Percentage of wound debrided: 100 Instrument Used: 3mm curette Tissue Removed: Slough and devitalized tissue Severity: Fat Layer Exposed Amount of bleeding with debridement: Mild Bleeding Controlled with: Pressure Patient tolerated procedure: Patient tolerated procedure well Post-Debridement Measurements and Additional Note: Post-Debridement Measurements/Treatment - Nurse 1 - General Ulcer Assessment Start: 04/22/22 09:58 Freq: Status: Active Protocol: AMANDA Activity Type Activity Date Activity User E-sign Co-sign Detail Recorded Client Recorded Date Recorded By Document 04/22/22 09:58 [facility] [id number] 04/22/22 10:09 [facility] 04/22/22 09:58 WC - Today's Visit Information Type of service Follow-up Visit (Physician/UPPER DOUBLER ) Arrival Mode Ambulatory Transfer Assistance None Accompanied by Patient Identification Verified (Name & Yes ) Patient Requires Transmission-Based No Precautions Height and Weight Body Mass Index (BMI) 42.8 BMI Classification Obese Vital Signs Temperature (97.8 F-99.1 F) 98 F Temperature Source Temporal Pulse Rate (60-100) 66 Pulse Location Monitor Respiratory Rate (12-18) 16 Respiratory rate source Observation Oxygen Delivery Method Room Air Blood Pressure (90/60-120/80) 174/82 H Blood Pressure Mean (mm Hg) 112 Source Monitor Position Sitting Blood Pressure Location Right Arm History Since Last Visit- (Skip if this is Patient's initial visit) Have you changed medications since your No last visit? Any new allergies or adverse reactions No Had a fall/change in ADL's that may No increase risk of falls Signs or symptoms of abuse and/or No neglect since last visit Have you been in the hospital since your No last visit? Has dressing in place as prescribed Yes Has compression in place as prescribed N/A Has offloadiing in place as prescribed N/A Experienced any changes in pain level or No management Left Footwear Regular Shoe Right Footwear Regular Shoe Pain Scale: 0-10 Numeric Is Patient Pain Free? Yes - Nurse 1 - General Ulcer Measurement Start: 04/22/22 09:58 Freq: Status: Active Protocol: Activity Type Activity Date Activity User E-sign Co-sign Detail Recorded Client Recorded Date Recorded By Document 04/22/22 09:58 [facility] [id number] 04/22/22 10:09 [facility] 04/22/22 09:58 Wound Center Nurse 1 #3 LEFT HAND -Combined with other wound No -Current Size (cm) - Length 0.6 -Current Size (cm) - Width 1.3 -Current Size (cm) - Depth 0.1 -Total Square Cm 0.78 -Date of Last Picture (Recall this 04/22/22 field) -Photo Taken Yes -Epithelialization None Present -Tunneling No -Undermining/Tunneling No -Circular Undermining No -Exudate Amt Small -Exudate Type Sanguineous -Wound Margin Distinct, Outline Attached -Granulation Amt Large (67-100%) -Granulation Quality Red -Slough/Fibrin No -Necrosis Amt None Present (0 %) -Texture ([place]-wound Skin Appearance) Assessed, Scarring -Moisture ([place]-wound Skin Appearance) Assessed -Color ([place]-wound Skin Appearance) Assessed -Temperature ([place]-wound Skin No Abnormality Appearance) (Pt Warm) -Tenderness on Palpation ([place]-wound No Skin Appearance) -Ulcer Cleansing Rinsed/ Irrigated with Saline -Foul Odor after Cleansing No -Anesthetic Used 5% Lidocaine Gel 2-left superior FA -Combined with other wound No -Current Size (cm) - Length 0.4 -Current Size (cm) - Width 0.6 -Current Size (cm) - Depth 0.1 -Total Square Cm 0.24 -Date of Last Picture (Recall this 04/22/22 field) -Photo Taken Yes -Epithelialization None Present -Tunneling No -Undermining/Tunneling No -Circular Undermining No -Exudate Amt None Present -Wound Margin Distinct, Outline Attached -Granulation Amt None Present (0 %) -Slough/Fibrin Yes -Necrosis Amt Large (67-100%) -Necrotic Tissue Type Eschar -Texture ([place]-wound Skin Appearance) Assessed -Moisture ([place]-wound Skin Appearance) Assessed -Color ([place]-wound Skin Appearance) Assessed -Temperature ([place]-wound Skin No Abnormality Appearance) (Pt Warm) -Tenderness on Palpation ([place]-wound No Skin Appearance) -Ulcer Cleansing Rinsed/ Irrigated with Saline -Foul Odor after Cleansing No -Anesthetic Used 5% Lidocaine Gel 1-left inferior FA -Combined with other wound No -Current Size (cm) - Length 0.8 -Current Size (cm) - Width 0.6 -Current Size (cm) - Depth 0.1 -Total Square Cm 0.48 -Date of Last Picture (Recall this 04/22/22 field) -Photo Taken Yes -Epithelialization None Present -Tunneling No -Undermining/Tunneling No -Circular Undermining No -Exudate Amt Small -Exudate Type Sanguineous -Wound Margin Distinct, Outline Attached -Granulation Amt Large (67-100%) -Granulation Quality Red -Slough/Fibrin Yes -Necrosis Amt Small (1-33%) -Necrotic Tissue Type Adherent Slough -Texture ([place]-wound Skin Appearance) Assessed, Excoriation -Moisture ([place]-wound Skin Appearance) Assessed -Color ([place]-wound Skin Appearance) Assessed -Temperature ([place]-wound Skin No Abnormality Appearance) (Pt Warm) -Tenderness on Palpation ([place]-wound No Skin Appearance) -Ulcer Cleansing Rinsed/ Irrigated with Saline -Foul Odor after Cleansing No -Anesthetic Used 5% Lidocaine Gel WC - Nurse 2 - General Ulcer CM Notes Start: 04/22/22 09:58 Freq: Status: Active Protocol: Activity Type Activity Date Activity User E-sign Co-sign Detail Recorded Client Recorded Date Recorded By Document 04/22/22 10:17 MW [id number] 04/22/22 10:22 MW 04/22/22 10:17 Wound Center Nurse 2 #3 LEFT HAND -Time 10:19 -Correct Patient Yes -Correct Side, Site, Position Yes -Correct Procedure Yes -Procedure Performed Yes -Type of Procedure Debridement -Clinical Debridement Subcutaneous -Tissue Removed Subcutaneous -Post Debridement (cm) - Length 1.1 -Post Debridement (cm) - Width 0.8 -Post Debridement (cm) - Depth 0.1 -Total Square (Post) (cm) 0.88 -Area of Debridement (cm) - Length 1.1 -Area of Debridement (cm) - Width 0.8 -Total Square (Area) (cm) 0.88 -Tunneling No -Undermining/Tunneling No -Circular Undermining No -Wound/Ulcer Outcome Not Healed -Ulcer Cleansing Rinsed/ Irrigated with Saline -Foul Odor after Cleansing No -Bioengineered Tissue No -Bleeding Controlled with Pressure -Treatment Response Procedure Tolerated Well -Offloading No -Debridement - Subq, 1st 20sq cm Yes 2-left superior FA -Time 10:21 -Correct Patient Yes -Correct Side, Site, Position Yes -Correct Procedure Yes -Procedure Performed Yes -Type of Procedure Debridement -Clinical Debridement Subcutaneous -Tissue Removed Subcutaneous -Post Debridement (cm) - Length 0.1 -Post Debridement (cm) - Width 0.1 -Post Debridement (cm) - Depth 0.1 -Total Square (Post) (cm) 0.01 -Area of Debridement (cm) - Length 0.1 -Area of Debridement (cm) - Width 0.1 -Total Square (Area) (cm) 0.01 -Tunneling No -Undermining/Tunneling No -Circular Undermining No -Wound/Ulcer Outcome Not Healed -Ulcer Cleansing Rinsed/ Irrigated with Saline -Foul Odor after Cleansing No -Bioengineered Tissue No -Bleeding Controlled with Pressure -Treatment Response Procedure Tolerated Well -Debridement - Subq, 1st 20sq cm No 1-left inferior FA -Time 10:21 -Correct Patient Yes -Correct Side, Site, Position Yes -Correct Procedure Yes -Procedure Performed Yes -Type of Procedure Debridement -Clinical Debridement Subcutaneous -Tissue Removed Subcutaneous -Post Debridement (cm) - Length 1.0 -Post Debridement (cm) - Width 0.8 -Post Debridement (cm) - Depth 0.1 -Total Square (Post) (cm) 0.80 -Area of Debridement (cm) - Length 1.0 -Area of Debridement (cm) - Width 0.8 -Total Square (Area) (cm) 0.80 -Tunneling No -Undermining/Tunneling No -Circular Undermining No -Wound/Ulcer Outcome Not Healed -Ulcer Cleansing Rinsed/ Irrigated with Saline -Foul Odor after Cleansing No -Bioengineered Tissue No -Bleeding Controlled with Pressure -Treatment Response Procedure Tolerated Well -Offloading No -Debridement - Subq, 1st 20sq cm No Pain Scale: 0-10 Numeric Is Patient Pain Free? Yes WC - Nurse 3 - General Ulcer D/C NN Start: 04/22/22 09:58 Freq: Status: Active Protocol: Activity Type Activity Date Activity User E-sign Co-sign Detail Recorded Client Recorded Date Recorded By Document 04/22/22 10:37 MW [id number] 04/22/22 10:38 MW 04/22/22 10:37 Wound Care Nurse 3 #3 LEFT HAND -Ulcer Cleansing Rinsed/ Irrigated with Saline -Foul Odor after Cleansing No -Negative Pressure Wound Therapy N/A -Primary Dressing Applied Promogran -Other Dressing xeroform -Primary Dressing Covered/Secured with Dry Gauze & Roll Gauze, Secured with Tape -Promogran 1 2-left superior FA -Ulcer Cleansing Rinsed/ Irrigated with Saline -Foul Odor after Cleansing No -Negative Pressure Wound Therapy N/A -Other Dressing promogran, xeroform -Primary Dressing Covered/Secured with Dry Gauze & Roll Gauze, Secured with Tape 1-left inferior FA -Ulcer Cleansing Rinsed/ Irrigated with Saline -Foul Odor after Cleansing No -Negative Pressure Wound Therapy N/A -Other Dressing promogron, xerofrom -Primary Dressing Covered/Secured with Dry Gauze & Roll Gauze, Secured with Tape Treatment Response Procedure Tolerated Well Pain Scale: 0-10 Numeric Is Patient Pain Free? Yes Teaching: Wound Center Dressing Your Wound -Person Taught Patient -Teaching Method Demonstration -Response to teaching Verbalize understanding WC - Visit Discharge Discharge Condition Stable Ambulatory Status Ambulatory Transportation Private Auto Accompanied by self Medication Reconcilliation completed & No provided to patient/care provider Clinical Summary of Care Provided Yes Additional Wound Wound debrided: Left forearm (inferior) Type of Debridement: Excisional debridement Anesthesia Used: 4% Lidocaine Solution Depth: Down to and including healthy tissue and in the subcutaneous layer Percentage of wound debrided: 100 Instrument Used: 3mm curette Tissue Removed: Slough and devitalized tissue Severity: Fat Layer Exposed Amount of bleeding with debridement: Mild Bleeding Controlled with: Pressure Patient tolerated procedure: Patient tolerated procedure well Assessment/Plan Assessment/Plan (1) Ulcer of upper extremity with fat layer exposed: CODE(S): L98.492 - Non-pressure chronic ulcer of 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 Superior ulcer essentially still healed. Continue moistened Promogran, cover with Adaptic. Adaptic and gauze to superior ulcer which is healed. Again, education provided on how to apply dressing, reinforce dressing and use compression. It is unclear why he has not healed, concerned about tampering with the wound. Referred to dermatology for second opinion. Compliance with instructions strongly recommended. No history of diabetes and normal A1c at 5.1. Increase protein intake, vitamin C, D and zinc discussed. Continue other chronic care management. His questions were answered and he was advised to call with any further questions or concerns. Follow-up in 1 week. This note was generated with [employer] software. It may contain incorrect words, spelling, and punctuation that were not noted in checking the note before signing.
[2022-04-29 08:08] VITALS: BP 134/82; PULSE 69; RESP 18; TEMP 36.6; BMI 42.8
--- NOTE | 2022-04-29 08:34 | PCM.WC.PN ---
History of Present Illness Date of Service: 04/29/22 Chief Complaint: Left Forearm Ulcer History of Wound: Mr Elaine is a 62 yo was referred to the wound center by his primary care physician due to nonhealing left forearm ulcers. Symptoms started months ago. Said to have started with swelling which become subsequently ulcerated. Denies any known precipitating factor. Has tried topical antibiotics and oral antibiotics without any significant improvement. No chills or fever. No prior or similar history in the past. Denies any history of diabetes mellitus. Minimal drainage from the ulcers. At this time, he denies chills, fever or otherwise feeling of unwell. Progress of Wound: New left elbow /cubital fossa ulcer. Does not know how it happened. Superior ulcer stays healed. Some improvement in prior ulcers. Objective Data Objective Data Vital Signs: Vital Signs Temp Pulse Resp BP O2 Del Method 97.8 F 69 18 134/82 H Room Air 04/29/22 08:08 04/29/22 08:08 04/29/22 08:08 04/29/22 08:08 04/22/22 09:58 Oxygen Delivery Method Room Air Weight: 307 lb Body Mass Index (BMI) 42.8 Charges/Coding Procedures Integumentary 111xxx-113xx: [id number] Evi subq tissue 20 sq cm/< Physical Exam Const alert, oriented x3 and no apparent distress General Appearance: cooperative, comfortable and well kempt HEENT normocephalic, head/scalp atraumatic and hearing grossly normal bilaterally Eyes PERRL and EOMs intact bilaterally General Eye: normal appearance of both eyes Neck full ROM General: normal visual inspection Resp normal respiratory effort Effort and Inspection: able to speak in complete sentences GI soft to palpation and non-tender Extremity full ROM Skin Lesions: lesion noted Wounds: wounds noted Neuro oriented x3, CN's II-XII intact bilaterally and moves all extremities Psych mental status grossly normal Appearance: grossly normal Attitude: calm Speech: normal speech Debridement Note Debridement Note Wound debrided: left hand Type of Debridement: Excisional debridement Anesthesia Used: 4% Lidocaine Solution Depth: Down to and including healthy tissue and in the subcutaneous layer Percentage of wound debrided: 100 Instrument Used: 3mm curette Tissue Removed: Slough and devitalized tissue Severity: Fat Layer Exposed Amount of bleeding with debridement: Mild Bleeding Controlled with: Pressure Patient tolerated procedure: Patient tolerated procedure well Post-Debridement Measurements and Additional Note: Post-Debridement Measurements/Treatment LISA - Nurse 1 - General Ulcer Assessment Start: 04/22/22 09:58 Freq: Status: Active Protocol: AMANDA Activity Type Activity Date Activity User E-sign Co-sign Detail Recorded Client Recorded Date Recorded By Document 04/22/22 09:58 BMF [id number] 04/22/22 10:09 BMF Document 04/29/22 08:08 DL [id number] 04/29/22 08:20 DL 04/22/22 04/29/22 09:58 08:08 WC - Today's Visit Information Type of service Follow-up Visit Follow-up Visit (Physician/GR[employer] TEACHER (Physician/GR[employer] TEACHER ) ) Arrival Mode Ambulatory Ambulatory Transfer Assistance None None Accompanied by Patient Identification Verified (Name & Yes Yes ) Patient Requires Transmission-Based No No Precautions Height and Weight Body Mass Index (BMI) 42.8 42.8 BMI Classification Obese Obese Vital Signs Temperature (97.8 F-99.1 F) 98 F 97.8 F Temperature Source Temporal Temporal Pulse Rate (60-100) 66 69 Pulse Location Monitor Monitor Respiratory Rate (12-18) 16 18 Respiratory rate source Observation Observation Oxygen Delivery Method Room Air Blood Pressure (90/60-120/80) 174/82 H 134/82 H Blood Pressure Mean (mm Hg) 112 99 Source Monitor Monitor Position Sitting Blood Pressure Location Right Arm History Since Last Visit- (Skip if this is Patient's initial visit) Have you changed medications since your No No last visit? Any new allergies or adverse reactions No No Had a fall/change in ADL's that may No No increase risk of falls Signs or symptoms of abuse and/or No No neglect since last visit Have you been in the hospital since your No No last visit? Has dressing in place as prescribed Yes Yes Has compression in place as prescribed N/A Yes Has offloadiing in place as prescribed N/A N/A Experienced any changes in pain level or No No management Left Footwear Regular Shoe Right Footwear Regular Shoe Pain Scale: 0-10 Numeric Is Patient Pain Free? Yes Yes LISA - Nurse 1 - General Ulcer Measurement Start: 04/22/22 09:58 Freq: Status: Active Protocol: Activity Type Activity Date Activity User E-sign Co-sign Detail Recorded Client Recorded Date Recorded By Document 04/22/22 09:58 [facility] [id number] 04/22/22 10:09 BM Document 04/29/22 08:08 DL [id number] 04/29/22 08:20 DL 04/22/22 04/29/22 09:58 08:08 Wound Center Nurse 1 #4 L Occipital -Current Size (cm) - Length 0.4 -Current Size (cm) - Width 0.5 -Current Size (cm) - Depth 0.2 -Total Square Cm 0.20 -Photo Taken Yes -Exudate Amt Small -Exudate Type Serosanguineous -Wound Margin Distinct, Outline Attached -Granulation Amt None Present (0 %) -Necrosis Amt Small (1-33%) -Necrotic Tissue Type Adherent Slough -Structure Exposed N/A -Texture ([place]-wound Skin Appearance) Scarring -Moisture ([place]-wound Skin Appearance) No Abnormality -Color ([place]-wound Skin Appearance) No Abnormality -Temperature ([place]-wound Skin No Abnormality Appearance) (Pt Warm) -Ulcer Cleansing Wound Cleanser -Foul Odor after Cleansing No -Anesthetic Used 5% Lidocaine Gel #3 LEFT HAND -Combined with other wound No -Current Size (cm) - Length 0.6 0.5 -Current Size (cm) - Width 1.3 0.5 -Current Size (cm) - Depth 0.1 0.1 -Total Square Cm 0.78 0.25 -Date of Last Picture (Recall this 04/22/22 field) -Photo Taken Yes No -Epithelialization None Present -Tunneling No -Undermining/Tunneling No -Circular Undermining No -Exudate Amt Small Small -Exudate Type Sanguineous Sanguineous -Wound Margin Distinct, Distinct, Outline Outline Attached Attached -Granulation Amt Large (67-100%) Large (67-100%) -Granulation Quality Red Red -Slough/Fibrin No -Necrosis Amt None Present (0 None Present (0 %) %) -Structure Exposed N/A -Texture ([place]-wound Skin Appearance) Assessed, Scarring Scarring -Moisture ([place]-wound Skin Appearance) Assessed No Abnormality -Color ([place]-wound Skin Appearance) Assessed No Abnormality -Temperature ([place]-wound Skin No Abnormality No Abnormality Appearance) (Pt Warm) (Pt Warm) -Tenderness on Palpation ([place]-wound No No Skin Appearance) -Ulcer Cleansing Rinsed/ Rinsed/ Irrigated with Irrigated with Saline Saline -Foul Odor after Cleansing No No -Anesthetic Used 5% Lidocaine 5% Lidocaine Gel Gel 2-left superior FA -Combined with other wound No -Current Size (cm) - Length 0.4 0 -Current Size (cm) - Width 0.6 0 -Current Size (cm) - Depth 0.1 0 -Total Square Cm 0.24 0 -Date of Last Picture (Recall this 04/22/22 field) -Photo Taken Yes Yes -Epithelialization None Present -Tunneling No -Undermining/Tunneling No -Circular Undermining No -Exudate Amt None Present None Present -Wound Margin Distinct, Flat & Intact Outline Attached -Granulation Amt None Present (0 Large (67-100%) %) -Granulation Quality [place] -Slough/Fibrin Yes -Necrosis Amt Large (67-100%) Small (1-33%) -Necrotic Tissue Type Eschar -Structure Exposed N/A -Texture ([place]-wound Skin Appearance) Assessed Scarring -Moisture ([place]-wound Skin Appearance) Assessed No Abnormality -Color ([place]-wound Skin Appearance) Assessed No Abnormality -Temperature ([place]-wound Skin No Abnormality No Abnormality Appearance) (Pt Warm) (Pt Warm) -Tenderness on Palpation ([place]-wound No No Skin Appearance) -Ulcer Cleansing Rinsed/ Rinsed/ Irrigated with Irrigated with Saline Saline -Foul Odor after Cleansing No No -Anesthetic Used 5% Lidocaine Gel 1-left inferior FA -Combined with other wound No -Current Size (cm) - Length 0.8 0.8 -Current Size (cm) - Width 0.6 0.8 -Current Size (cm) - Depth 0.1 0.1 -Total Square Cm 0.48 0.64 -Date of Last Picture (Recall this 04/22/22 field) -Photo Taken Yes No -Epithelialization None Present -Tunneling No -Undermining/Tunneling No -Circular Undermining No -Exudate Amt Small Medium -Exudate Type Sanguineous Sanguineous -Wound Margin Distinct, Distinct, Outline Outline Attached Attached -Granulation Amt Large (67-100%) Large (67-100%) -Granulation Quality Red Red -Slough/Fibrin Yes -Necrosis Amt Small (1-33%) None Present (0 %) -Necrotic Tissue Type Adherent Slough -Structure Exposed N/A -Texture ([place]-wound Skin Appearance) Assessed, Scarring Excoriation -Moisture ([place]-wound Skin Appearance) Assessed No Abnormality -Color ([place]-wound Skin Appearance) Assessed No Abnormality -Temperature ([place]-wound Skin No Abnormality No Abnormality Appearance) (Pt Warm) (Pt Warm) -Tenderness on Palpation ([place]-wound No No Skin Appearance) -Ulcer Cleansing Rinsed/ Rinsed/ Irrigated with Irrigated with Saline Saline -Foul Odor after Cleansing No No -Anesthetic Used 5% Lidocaine 5% Lidocaine Gel Gel WC - Nurse 2 - General Ulcer CM Notes Start: 04/22/22 09:58 Freq: Status: Active Protocol: Activity Type Activity Date Activity User E-sign Co-sign Detail Recorded Client Recorded Date Recorded By Document 04/22/22 10:17 MW [id number] 04/22/22 10:22 MW 04/22/22 10:17 Wound Center Nurse 2 #3 LEFT HAND -Time 10:19 -Correct Patient Yes -Correct Side, Site, Position Yes -Correct Procedure Yes -Procedure Performed Yes -Type of Procedure Debridement -Clinical Debridement Subcutaneous -Tissue Removed Subcutaneous -Post Debridement (cm) - Length 1.1 -Post Debridement (cm) - Width 0.8 -Post Debridement (cm) - Depth 0.1 -Total Square (Post) (cm) 0.88 -Area of Debridement (cm) - Length 1.1 -Area of Debridement (cm) - Width 0.8 -Total Square (Area) (cm) 0.88 -Tunneling No -Undermining/Tunneling No -Circular Undermining No -Wound/Ulcer Outcome Not Healed -Ulcer Cleansing Rinsed/ Irrigated with Saline -Foul Odor after Cleansing No -Bioengineered Tissue No -Bleeding Controlled with Pressure -Treatment Response Procedure Tolerated Well -Offloading No -Debridement - Subq, 1st 20sq cm Yes 2-left superior FA -Time 10:21 -Correct Patient Yes -Correct Side, Site, Position Yes -Correct Procedure Yes -Procedure Performed Yes -Type of Procedure Debridement -Clinical Debridement Subcutaneous -Tissue Removed Subcutaneous -Post Debridement (cm) - Length 0.1 -Post Debridement (cm) - Width 0.1 -Post Debridement (cm) - Depth 0.1 -Total Square (Post) (cm) 0.01 -Area of Debridement (cm) - Length 0.1 -Area of Debridement (cm) - Width 0.1 -Total Square (Area) (cm) 0.01 -Tunneling No -Undermining/Tunneling No -Circular Undermining No -Wound/Ulcer Outcome Not Healed -Ulcer Cleansing Rinsed/ Irrigated with Saline -Foul Odor after Cleansing No -Bioengineered Tissue No -Bleeding Controlled with Pressure -Treatment Response Procedure Tolerated Well -Debridement - Subq, 1st 20sq cm No 1-left inferior FA -Time 10:21 -Correct Patient Yes -Correct Side, Site, Position Yes -Correct Procedure Yes -Procedure Performed Yes -Type of Procedure Debridement -Clinical Debridement Subcutaneous -Tissue Removed Subcutaneous -Post Debridement (cm) - Length 1.0 -Post Debridement (cm) - Width 0.8 -Post Debridement (cm) - Depth 0.1 -Total Square (Post) (cm) 0.80 -Area of Debridement (cm) - Length 1.0 -Area of Debridement (cm) - Width 0.8 -Total Square (Area) (cm) 0.80 -Tunneling No -Undermining/Tunneling No -Circular Undermining No -Wound/Ulcer Outcome Not Healed -Ulcer Cleansing Rinsed/ Irrigated with Saline -Foul Odor after Cleansing No -Bioengineered Tissue No -Bleeding Controlled with Pressure -Treatment Response Procedure Tolerated Well -Offloading No -Debridement - Subq, 1st 20sq cm No Pain Scale: 0-10 Numeric Is Patient Pain Free? Yes WC - Nurse 3 - General Ulcer D/C NN Start: 04/22/22 09:58 Freq: Status: Active Protocol: Activity Type Activity Date Activity User E-sign Co-sign Detail Recorded Client Recorded Date Recorded By Document 04/22/22 10:37 MW [id number] 04/22/22 10:38 MW 04/22/22 10:37 Wound Care Nurse 3 #3 LEFT HAND -Ulcer Cleansing Rinsed/ Irrigated with Saline -Foul Odor after Cleansing No -Negative Pressure Wound Therapy N/A -Primary Dressing Applied Promogran -Other Dressing xeroform -Primary Dressing Covered/Secured with Dry Gauze & Roll Gauze, Secured with Tape -Promogran 1 2-left superior FA -Ulcer Cleansing Rinsed/ Irrigated with Saline -Foul Odor after Cleansing No -Negative Pressure Wound Therapy N/A -Other Dressing promogran, xeroform -Primary Dressing Covered/Secured with Dry Gauze & Roll Gauze, Secured with Tape 1-left inferior FA -Ulcer Cleansing Rinsed/ Irrigated with Saline -Foul Odor after Cleansing No -Negative Pressure Wound Therapy N/A -Other Dressing promogron, xerofrom -Primary Dressing Covered/Secured with Dry Gauze & Roll Gauze, Secured with Tape Treatment Response Procedure Tolerated Well Pain Scale: 0-10 Numeric Is Patient Pain Free? Yes Teaching: Wound Center Dressing Your Wound -Person Taught Patient -Teaching Method Demonstration -Response to teaching Verbalize understanding WC - Visit Discharge Discharge Condition Stable Ambulatory Status Ambulatory Transportation Private Auto Accompanied by self Medication Reconcilliation completed & No provided to patient/care provider Clinical Summary of Care Provided Yes Additional Wound Wound debrided: Left Forearm ( Inferior ) Type of Debridement: Excisional debridement Anesthesia Used: 4% Lidocaine Solution Depth: Down to and including healthy tissue and in the subcutaneous layer Percentage of wound debrided: 100 Instrument Used: 3mm curette Tissue Removed: Slough and devitalized tissue Severity: Fat Layer Exposed Amount of bleeding with debridement: Mild Bleeding Controlled with: Pressure Patient tolerated procedure: Patient tolerated procedure well Additional Wound Wound debrided: Left Cubital Fossa Type of Debridement: Excisional debridement Anesthesia Used: 4% Lidocaine Solution Depth: Down to and including healthy tissue and in the subcutaneous layer Percentage of wound debrided: 100 Instrument Used: 3mm curette Tissue Removed: Slough and devitalized tissue Severity: Fat Layer Exposed Amount of bleeding with debridement: Mild Bleeding Controlled with: Pressure Patient tolerated procedure: Patient tolerated procedure well Assessment/Plan Assessment/Plan (1) Ulcer of upper extremity with fat layer exposed: CODE(S): L98.492 - Non-pressure chronic ulcer of skin of other sites with fat layer exposed (2) Abscess: CODE(S): L02.91 - Cutaneous abscess, unspecified (3) Debility: CODE(S): R53.81 - Other malaise PLAN: Plan New Left cubital fossa ulcer. Superior ulcer stays healed. Improvement noted generally. Moistened Promogran, cover with Xeroform to all ulcers. Again, education provided on how to apply dressing, reinforce dressing and use compression. Compliance with instructions strongly recommended. No history of diabetes and normal A1c at 5.1. Increase protein intake, vitamin C, D and zinc discussed. Continue other chronic care management. His questions were answered and he was advised to call with any further questions or concerns. Follow-up in 1 week. This note was generated with [employer] dictation software. It may contain incorrect words, spelling, and punctuation that were not noted in checking the note before signing.
[2022-05-06 08:24] VITALS: BP 153/90; PULSE 60; RESP 16; TEMP 36.3; BMI 42.8
--- NOTE | 2022-05-06 09:42 | PN.PCM_ITS ---
History of Present Illness Date of Service: 05/06/22 Chief Complaint: Left Forearm Ulcer History of Wound: Mr Elaine is a 62 yo was referred to the wound center by his primary care physician due to nonhealing left forearm ulcers. Symptoms started months ago. Said to have started with swelling which become subsequently ulcerated. Denies any known precipitating factor. Has tried topical antibiotics and oral antibiotics without any significant improvement. No chills or fever. No prior or similar history in the past. Denies any history of diabetes mellitus. Minimal drainage from the ulcers. At this time, he denies chills, fever or otherwise feeling of unwell. Progress of Wound: Superior ulcer reopened, patient states that he does not know why. Left hand with minimal area. Left cubital fossa/elbow also with minimal area left. He is yet to schedule an appointment with dermatology. Objective Data Objective Data Vital Signs: Vital Signs Temp Pulse Resp BP O2 Del Method 97.4 F L 60 16 153/90 H Room Air 05/06/22 08:24 05/06/22 08:24 05/06/22 08:24 05/06/22 08:24 05/06/22 08:24 Oxygen Delivery Method Room Air Weight: 307 lb Body Mass Index (BMI) 42.8 Charges/Coding Procedures Integumentary 111xxx-113xx: [id number] Debride infected skin (Selective debridement done, please refer to clinical note.) Physical Exam Const alert, oriented x3 and no apparent distress General Appearance: cooperative, comfortable and well kempt HEENT normocephalic, head/scalp atraumatic and hearing grossly normal bilaterally Eyes PERRL and EOMs intact bilaterally General Eye: normal appearance of both eyes Neck full ROM General: normal visual inspection Resp normal respiratory effort Effort and Inspection: able to speak in complete sentences GI soft to palpation and non-tender Extremity full ROM Skin Lesions: lesion noted Wounds: wounds noted Neuro oriented x3, CN's II-XII intact bilaterally and moves all extremities Psych mental status grossly normal Appearance: grossly normal Attitude: calm Speech: normal speech Debridement Note Debridement Note Wound debrided: Left forearm (inferior) Type of Debridement: Selective debridement Anesthesia Used: 4% Lidocaine Solution Depth: Down to and including healthy tissue and in the subcutaneous layer Percentage of wound debrided: 100 Tissue Removed: Slough and devitalized tissue Severity: Fat Layer Exposed Amount of bleeding with debridement: Mild Bleeding Controlled with: Pressure Patient tolerated procedure: Patient tolerated procedure well Post-Debridement Measurements and Additional Note: Post-Debridement Measurements/Treatment - Nurse 1 - General Ulcer Assessment Start: 04/22/22 09:58 Freq: Status: Active Protocol: AMANDA Activity Type Activity Date Activity User E-sign Co-sign Detail Recorded Client Recorded Date Recorded By Document 04/22/22 09:58 BMF [id number] 04/22/22 10:09 BMF Document 04/29/22 08:08 DL [id number] 04/29/22 08:20 DL Document 05/06/22 08:24 BM [id number] 05/06/22 08:32 BMF 04/22/22 04/29/22 05/06/22 09:58 08:08 08:24 - Today's Visit Information Type of service Follow-up Visit Follow-up Visit Follow-up Visit (Physician/ANIMAL CARE SERVICE WORKER (Physician/ANIMAL CARE SERVICE WORKER (Physician/ANIMAL CARE SERVICE WORKER ) ) ) Arrival Mode Ambulatory Ambulatory Ambulatory Transfer Assistance None None None Accompanied by Patient Identification Verified (Name & Yes Yes Yes ) Patient Requires Transmission-Based No No No Precautions Height and Weight Body Mass Index (BMI) 42.8 42.8 42.8 BMI Classification Obese Obese Obese Vital Signs Temperature (97.8 F-99.1 F) 98 F 97.8 F 97.4 F L Temperature Source Temporal Temporal Temporal Pulse Rate (60-100) 66 69 60 Pulse Location Monitor Monitor Monitor Respiratory Rate (12-18) 16 18 16 Respiratory rate source Observation Observation Observation Oxygen Delivery Method Room Air Room Air Blood Pressure (90/60-120/80) 174/82 H 134/82 H 153/90 H Blood Pressure Mean (mm Hg) 112 99 111 Source Monitor Monitor Monitor Position Sitting Sitting Blood Pressure Location Right Arm Right Arm History Since Last Visit- (Skip if this is Patient's initial visit) Have you changed medications since your No No No last visit? Any new allergies or adverse reactions No No No Had a fall/change in ADL's that may No No No increase risk of falls Signs or symptoms of abuse and/or No No No neglect since last visit Have you been in the hospital since your No No No last visit? Has dressing in place as prescribed Yes Yes Yes Has compression in place as prescribed N/A Yes N/A Has offloadiing in place as prescribed N/A N/A N/A Experienced any changes in pain level or No No No management Left Footwear Regular Shoe Regular Shoe Right Footwear Regular Shoe Regular Shoe Pain Scale: 0-10 Numeric Is Patient Pain Free? Yes Yes Yes WC - Nurse 1 - General Ulcer Measurement Start: 04/22/22 09:58 Freq: Status: Active Protocol: Activity Type Activity Date Activity User E-sign Co-sign Detail Recorded Client Recorded Date Recorded By Document 04/22/22 09:58 BMF [id number] 04/22/22 10:09 BMF Document 04/29/22 08:08 DL [id number] 04/29/22 08:20 DL Document 05/06/22 08:24 BM [id number] 05/06/22 08:32 BMF 04/22/22 04/29/22 05/06/22 09:58 08:08 08:24 Wound Center Nurse 1 #4 L Antecubital -Combined with other wound No -Current Size (cm) - Length 0.4 0.1 -Current Size (cm) - Width 0.5 0.1 -Current Size (cm) - Depth 0.2 0.1 -Total Square Cm 0.20 0.01 -Date of Last Picture (Recall this 05/06/22 field) -Photo Taken Yes Yes -Epithelialization Large 67-100% -Exudate Amt Small -Exudate Type Serosanguineous -Wound Margin Distinct, Outline Attached -Granulation Amt None Present (0 %) -Necrosis Amt Small (1-33%) -Necrotic Tissue Type Adherent Slough -Structure Exposed N/A -Texture ([place]-wound Skin Appearance) Scarring -Moisture ([place]-wound Skin Appearance) No Abnormality -Color ([place]-wound Skin Appearance) No Abnormality -Temperature ([place]-wound Skin No Abnormality Appearance) (Pt Warm) -Ulcer Cleansing Wound Cleanser -Foul Odor after Cleansing No -Anesthetic Used 5% Lidocaine Gel #3 LEFT HAND -Combined with other wound No No -Current Size (cm) - Length 0.6 0.5 0.1 -Current Size (cm) - Width 1.3 0.5 0.1 -Current Size (cm) - Depth 0.1 0.1 0.1 -Total Square Cm 0.78 0.25 0.01 -Date of Last Picture (Recall this 04/22/22 05/06/22 field) -Photo Taken Yes No Yes -Epithelialization None Present Large 67-100% -Tunneling No -Undermining/Tunneling No -Circular Undermining No -Exudate Amt Small Small -Exudate Type Sanguineous Sanguineous -Wound Margin Distinct, Distinct, Outline Outline Attached Attached -Granulation Amt Large (67-100%) Large (67-100%) -Granulation Quality Red Red -Slough/Fibrin No -Necrosis Amt None Present (0 None Present (0 %) %) -Structure Exposed N/A -Texture ([place]-wound Skin Appearance) Assessed, Scarring Scarring -Moisture ([place]-wound Skin Appearance) Assessed No Abnormality -Color ([place]-wound Skin Appearance) Assessed No Abnormality -Temperature ([place]-wound Skin No Abnormality No Abnormality Appearance) (Pt Warm) (Pt Warm) -Tenderness on Palpation ([place]-wound No No Skin Appearance) -Ulcer Cleansing Rinsed/ Rinsed/ Irrigated with Irrigated with Saline Saline -Foul Odor after Cleansing No No -Anesthetic Used 5% Lidocaine 5% Lidocaine Gel Gel 2-left superior FA -Combined with other wound No No -Current Size (cm) - Length 0.4 0 0.3 -Current Size (cm) - Width 0.6 0 0.5 -Current Size (cm) - Depth 0.1 0 0.1 -Total Square Cm 0.24 0 0.15 -Date of Last Picture (Recall this 04/22/22 05/06/22 field) -Photo Taken Yes Yes Yes -Epithelialization None Present None Present -Tunneling No No -Undermining/Tunneling No No -Circular Undermining No No -Exudate Amt None Present None Present Small -Exudate Type Sanguineous -Wound Margin Distinct, Flat & Intact Distinct, Outline Outline Attached Attached -Granulation Amt None Present (0 Large (67-100%) Small (1-33%) %) -Granulation Quality [place] Red -Slough/Fibrin Yes Yes -Necrosis Amt Large (67-100%) Small (1-33%) Medium (34-66%) -Necrotic Tissue Type Eschar Eschar -Structure Exposed N/A -Texture ([place]-wound Skin Appearance) Assessed Scarring Assessed, Scarring -Moisture ([place]-wound Skin Appearance) Assessed No Abnormality Assessed -Color ([place]-wound Skin Appearance) Assessed No Abnormality Assessed -Temperature ([place]-wound Skin No Abnormality No Abnormality No Abnormality Appearance) (Pt Warm) (Pt Warm) (Pt Warm) -Tenderness on Palpation ([place]-wound No No No Skin Appearance) -Ulcer Cleansing Rinsed/ Rinsed/ Rinsed/ Irrigated with Irrigated with Irrigated with Saline Saline Saline -Foul Odor after Cleansing No No No -Anesthetic Used 5% Lidocaine 5% Lidocaine Gel Gel 1-left inferior FA -Combined with other wound No No -Current Size (cm) - Length 0.8 0.8 0.5 -Current Size (cm) - Width 0.6 0.8 0.7 -Current Size (cm) - Depth 0.1 0.1 0.1 -Total Square Cm 0.48 0.64 0.35 -Date of Last Picture (Recall this 04/22/22 05/06/22 field) -Photo Taken Yes No Yes -Epithelialization None Present None Present -Tunneling No No -Undermining/Tunneling No No -Circular Undermining No No -Exudate Amt Small Medium Small -Exudate Type Sanguineous Sanguineous Sanguineous -Wound Margin Distinct, Distinct, Distinct, Outline Outline Outline Attached Attached Attached -Granulation Amt Large (67-100%) Large (67-100%) Small (1-33%) -Granulation Quality Red Red Red -Slough/Fibrin Yes Yes -Necrosis Amt Small (1-33%) None Present (0 None Present (0 %) %) -Necrotic Tissue Type Adherent Slough Eschar -Structure Exposed N/A -Texture ([place]-wound Skin Appearance) Assessed, Scarring Assessed, Excoriation Excoriation -Moisture ([place]-wound Skin Appearance) Assessed No Abnormality Assessed -Color ([place]-wound Skin Appearance) Assessed No Abnormality Assessed -Temperature ([place]-wound Skin No Abnormality No Abnormality No Abnormality Appearance) (Pt Warm) (Pt Warm) (Pt Warm) -Tenderness on Palpation ([place]-wound No No No Skin Appearance) -Ulcer Cleansing Rinsed/ Rinsed/ Rinsed/ Irrigated with Irrigated with Irrigated with Saline Saline Saline -Foul Odor after Cleansing No No No -Anesthetic Used 5% Lidocaine 5% Lidocaine 5% Lidocaine Gel Gel Gel WC - Nurse 2 - General Ulcer CM Notes Start: 04/22/22 09:58 Freq: Status: Active Protocol: Activity Type Activity Date Activity User E-sign Co-sign Detail Recorded Client Recorded Date Recorded By Document 04/22/22 10:17 MW [id number] 04/22/22 10:22 MW Document 04/29/22 08:28 MW [id number] 04/29/22 08:34 MW 04/22/22 04/29/22 10:17 08:28 Wound Center Nurse 2 #4 L Antecubital -Time 08:30 -Correct Patient Yes -Correct Side, Site, Position Yes -Correct Procedure Yes -Procedure Performed Yes -Type of Procedure Debridement -Clinical Debridement Subcutaneous -Tissue Removed Subcutaneous -Post Debridement (cm) - Length 0.4 -Post Debridement (cm) - Width 0.6 -Post Debridement (cm) - Depth 0.1 -Total Square (Post) (cm) 0.24 -Area of Debridement (cm) - Length 0.4 -Area of Debridement (cm) - Width 0.6 -Total Square (Area) (cm) 0.24 -Tunneling No -Undermining/Tunneling No -Circular Undermining No -Wound/Ulcer Outcome Not Healed -Ulcer Cleansing Rinsed/ Irrigated with Saline -Foul Odor after Cleansing No -Bioengineered Tissue No -Bleeding Controlled with Pressure -Treatment Response Procedure Tolerated Well -Debridement - Subq, 1st 20sq cm Yes #3 LEFT HAND -Time 10:19 08:31 -Correct Patient Yes Yes -Correct Side, Site, Position Yes Yes -Correct Procedure Yes Yes -Procedure Performed Yes Yes -Type of Procedure Debridement Debridement -Clinical Debridement Subcutaneous Subcutaneous -Tissue Removed Subcutaneous Subcutaneous -Post Debridement (cm) - Length 1.1 0.7 -Post Debridement (cm) - Width 0.8 0.3 -Post Debridement (cm) - Depth 0.1 0.1 -Total Square (Post) (cm) 0.88 0.21 -Area of Debridement (cm) - Length 1.1 0.7 -Area of Debridement (cm) - Width 0.8 0.3 -Total Square (Area) (cm) 0.88 0.21 -Tunneling No No -Undermining/Tunneling No No -Circular Undermining No No -Wound/Ulcer Outcome Not Healed Not Healed -Ulcer Cleansing Rinsed/ Rinsed/ Irrigated with Irrigated with Saline Saline -Foul Odor after Cleansing No No -Bioengineered Tissue No No -Bleeding Controlled with Pressure Pressure -Treatment Response Procedure Procedure Tolerated Well Tolerated Well -Offloading No No -Debridement - Subq, 1st 20sq cm Yes No 2-left superior FA -Time 10: 08:33 -Correct Patient Yes Yes -Correct Side, Site, Position Yes Yes -Correct Procedure Yes Yes -Procedure Performed Yes No -Type of Procedure Debridement -Clinical Debridement Subcutaneous -Tissue Removed Subcutaneous -Post Debridement (cm) - Length 0.1 0 -Post Debridement (cm) - Width 0.1 0 -Post Debridement (cm) - Depth 0.1 0 -Total Square (Post) (cm) 0.01 0 -Area of Debridement (cm) - Length 0.1 -Area of Debridement (cm) - Width 0.1 -Total Square (Area) (cm) 0.01 -Tunneling No -Undermining/Tunneling No -Circular Undermining No -Wound/Ulcer Outcome Not Healed Healed- Epithelialized -Ulcer Cleansing Rinsed/ Irrigated with Saline -Foul Odor after Cleansing No -Bioengineered Tissue No -Bleeding Controlled with Pressure -Treatment Response Procedure Tolerated Well -Debridement - Subq, 1st 20sq cm No 1-left inferior FA -Time 10: 08:33 -Correct Patient Yes Yes -Correct Side, Site, Position Yes Yes -Correct Procedure Yes Yes -Procedure Performed Yes Yes -Type of Procedure Debridement Debridement -Clinical Debridement Subcutaneous Subcutaneous -Tissue Removed Subcutaneous Subcutaneous -Post Debridement (cm) - Length 1.0 0.7 -Post Debridement (cm) - Width 0.8 0.8 -Post Debridement (cm) - Depth 0.1 0.1 -Total Square (Post) (cm) 0.80 0.56 -Area of Debridement (cm) - Length 1.0 0.7 -Area of Debridement (cm) - Width 0.8 0.8 -Total Square (Area) (cm) 0.80 0.56 -Tunneling No No -Undermining/Tunneling No No -Circular Undermining No No -Wound/Ulcer Outcome Not Healed Not Healed -Ulcer Cleansing Rinsed/ Rinsed/ Irrigated with Irrigated with Saline Saline -Foul Odor after Cleansing No No -Bioengineered Tissue No No -Bleeding Controlled with Pressure Pressure -Treatment Response Procedure Procedure Tolerated Well Tolerated Well -Offloading No No -Debridement - Subq, 1st 20sq cm No No Pain Scale: 0-10 Numeric Is Patient Pain Free? Yes Yes WC - Nurse 3 - General Ulcer D/C NN Start: 04/22/22 09:58 Freq: Status: Active Protocol: Activity Type Activity Date Activity User E-sign Co-sign Detail Recorded Client Recorded Date Recorded By Document 04/22/22 10:37 MW [id number] 04/22/22 10:38 MW Document 04/29/22 08:48 DL [id number] 04/29/22 08:49 DL Document 05/06/22 09:16 BM [id number] 05/06/22 09:17 BMF 04/22/22 04/29/22 05/06/22 10:37 08:48 09:16 Wound Care Nurse 3 #4 L Antecubital -Ulcer Cleansing Rinsed/ Rinsed/ Irrigated with Irrigated with Saline Saline -Foul Odor after Cleansing No No -Primary Dressing Applied NonAdherent NonAdherent Contact Layer, Contact Layer, Promogran Promogran -Primary Dressing Covered/Secured with Dry Gauze, Dry Gauze, Secured with Secured with Tape Tape -Promogran 1 1 #3 LEFT HAND -Ulcer Cleansing Rinsed/ Rinsed/ Rinsed/ Irrigated with Irrigated with Irrigated with Saline Saline Saline -Foul Odor after Cleansing No No No -Negative Pressure Wound Therapy N/A -Primary Dressing Applied Promogran NonAdherent NonAdherent Contact Layer Contact Layer, Promogran -Other Dressing xeroform promogran -Primary Dressing Covered/Secured with Dry Gauze & Dry Gauze, Dry Gauze, Roll Gauze, Secured with Secured with Secured with Tape Tape Tape -Promogran 1 0 2-left superior FA -Ulcer Cleansing Rinsed/ Rinsed/ Irrigated with Irrigated with Saline Saline -Foul Odor after Cleansing No No -Negative Pressure Wound Therapy N/A -Primary Dressing Applied NonAdherent Contact Layer, Promogran -Other Dressing promogran, xeroform -Primary Dressing Covered/Secured with Dry Gauze & Dry Gauze, Roll Gauze, Secured with Secured with Tape Tape -Promogran 0 1-left inferior FA -Ulcer Cleansing Rinsed/ Wound Cleanser Rinsed/ Irrigated with Irrigated with Saline Saline -Foul Odor after Cleansing No No No -Negative Pressure Wound Therapy N/A -Primary Dressing Applied NonAdherent Contact Layer, Promogran -Other Dressing promogron, promogran xerofrom -Primary Dressing Covered/Secured with Dry Gauze & Dry Gauze, Dry Gauze, Roll Gauze, Secured with Secured with Secured with Tape Tape Tape -Other Covering tubigrip -Promogran 0 Treatment Response Procedure Procedure Procedure Tolerated Well Tolerated Well Tolerated Well Pain Scale: 0-10 Numeric Is Patient Pain Free? Yes Yes Yes Teaching: Wound Center Dressing Your Wound -Person Taught Patient -Teaching Method Demonstration -Response to teaching Verbalize understanding WC - Visit Discharge Discharge Condition Stable Stable Stable Ambulatory Status Ambulatory Ambulatory Ambulatory Transportation Private Auto Private Auto Private Auto Accompanied by self Medication Reconcilliation completed & No provided to patient/care provider Clinical Summary of Care Provided Yes Facility Type Home Health Orders Sent Yes Additional Wound Wound debrided: Left forearm (superior) Type of Debridement: Selective debridement Anesthesia Used: 4% Lidocaine Solution Depth: Down to and including healthy tissue and in the subcutaneous layer Percentage of wound debrided: 100 Tissue Removed: Slough and devitalized tissue Severity: Fat Layer Exposed Amount of bleeding with debridement: Mild Bleeding Controlled with: Pressure Patient tolerated procedure: Patient tolerated procedure well Assessment/Plan Assessment/Plan (1) Ulcer of upper extremity with fat layer exposed: CODE(S): L98.492 - Non-pressure chronic ulcer of skin of other sites with fat layer exposed (2) Abscess: CODE(S): L02.91 - Cutaneous abscess, unspecified (3) Debility: CODE(S): R53.81 - Other malaise PLAN: Plan Superior ulcer reopened, patient states that he does not know why. He is yet to schedule an appointment with dermatology. Continue moistened Promogran, cover with Xeroform to all ulcers. Again, education provided on how to apply dressing, reinforce dressing and use compression. Compliance with instructions strongly recommended. No history of diabetes and normal A1c at 5.1. Increase protein intake, vitamin C, D and zinc discussed. Continue other chronic care management. His questions were answered and he was advised to call with any further questions or concerns. Follow-up in 1 week. This note was generated with [employer]ogreet[employer] software. It may contain incorrect words, spelling, and punctuation that were not noted in checking the note before signing.
== END 2022-05-16 23:59 | disposition home or self-care (01) ==
LOC: WC 08:30
PROVIDERS: PCP Student in an Organized Health Care Education/Training Program; Referring Provider Internal Medicine; Visit Provider Internal Medicine
DX: L98.492 Non-pressure chronic ulcer of skin of other sites with fat layer exposed (principal); R53.81 Other malaise; L02.91 Cutaneous abscess, unspecified
CPT/HCPCS: 11042; 97597

== ENCOUNTER 2022-05-27 10:00 | Outpatient (RCR) | payer MEDICARE, MEDICAID, SELFPAY ==
[2022-05-17 00:15] VITALS: BP 153/90; PULSE 60; RESP 16; TEMP 36.3; BMI 42.8
[2022-05-20 09:55] VITALS: BP 171/87; PULSE 65; RESP 16; TEMP 36.8; BMI 42.8
--- NOTE | 2022-05-20 11:11 | PN.PCM_ITS ---
History of Present Illness Date of Service: 05/20/22 Chief Complaint: Left Forearm Ulcer History of Wound: Mr Elaine is a 62 yo was referred to the wound center by his primary care physician due to nonhealing left forearm ulcers. Symptoms started months ago. Said to have started with swelling which become subsequently ulcerated. Denies any known precipitating factor. Has tried topical antibiotics and oral antibiotics without any significant improvement. No chills or fever. No prior or similar history in the past. Denies any history of diabetes mellitus. Minimal drainage from the ulcers. At this time, he denies chills, fever or otherwise feeling of unwell. Progress of Wound: No significant change. Superior forearm is healed. He however presents with reopening of the elbow/cubital fossa and a new one in the same area. It is not clear he is following instructions Objective Data Objective Data Vital Signs: Vital Signs Temp Pulse Resp BP 98.3 F 65 16 171/87 H 05/20/22 09:55 05/20/22 09:55 05/20/22 09:55 05/20/22 09:55 Weight: 307 lb Body Mass Index (BMI) 42.8 Charges/Coding Procedures Integumentary 111xxx-113xx: [id number] Evi subq tissue 20 sq cm/< (Superficial/selective debridement done, please refer to clinical note) Physical Exam Const alert, oriented x3 and no apparent distress General Appearance: cooperative, comfortable and well kempt HEENT normocephalic, head/scalp atraumatic and hearing grossly normal bilaterally Eyes PERRL and EOMs intact bilaterally General Eye: normal appearance of both eyes Neck full ROM General: normal visual inspection Resp normal respiratory effort Effort and Inspection: able to speak in complete sentences GI soft to palpation and non-tender Extremity full ROM Skin Lesions: lesion noted Wounds: wounds noted Neuro oriented x3, CN's II-XII intact bilaterally and moves all extremities Psych mental status grossly normal Appearance: grossly normal Attitude: calm Speech: normal speech Debridement Note Debridement Note Wound debrided: Left hand Type of Debridement: Selective debridement Anesthesia Used: 4% Lidocaine Solution Depth: Down to and including healthy tissue and in the subcutaneous layer Percentage of wound debrided: 100 Tissue Removed: Devitalized tissue Severity: Fat Layer Exposed Amount of bleeding with debridement: Mild Bleeding Controlled with: Pressure Patient tolerated procedure: Patient tolerated procedure well Post-Debridement Measurements and Additional Note: Post-Debridement Measurements/Treatment LISA - Nurse 1 - General Ulcer Assessment Start: 05/20/22 09:55 Freq: Status: Active Protocol: AMANDA Activity Type Activity Date Activity User E-sign Co-sign Detail Recorded Client Recorded Date Recorded By Document 05/20/22 09:55 YANET [employer] 05/20/22 10:03 05/20/22 09:55 WC - Today's Visit Information Type of service Follow-up Visit (Physician/CHARTER COORDINATOR ) Arrival Mode Ambulatory Patient Identification Verified (Name & Yes ) Patient Requires Transmission-Based No Precautions Height and Weight Body Mass Index (BMI) 42.8 BMI Classification Obese Vital Signs Temperature (97.8 F-99.1 F) 98.3 F Temperature Source Temporal Pulse Rate (60-100) 65 Pulse Location Monitor Respiratory Rate (12-18) 16 Respiratory rate source Observation Blood Pressure (90/60-120/80) 171/87 H Blood Pressure Mean (mm Hg) 115 Source Monitor Position Semi-Fowlers Blood Pressure Location Right Arm History Since Last Visit- (Skip if this is Patient's initial visit) Have you changed medications since your No last visit? Any new allergies or adverse reactions No Had a fall/change in ADL's that may No increase risk of falls Signs or symptoms of abuse and/or No neglect since last visit Have you been in the hospital since your No last visit? Has dressing in place as prescribed Yes Has compression in place as prescribed N/A Has offloadiing in place as prescribed N/A Experienced any changes in pain level or No management Left Footwear Regular Shoe Right Footwear Regular Shoe Pain Scale: 0-10 Numeric Is Patient Pain Free? Yes - Nurse 1 - General Ulcer Measurement Start: 05/20/22 09:55 Freq: Status: Active Protocol: Activity Type Activity Date Activity User E-sign Co-sign Detail Recorded Client Recorded Date Recorded By Document 05/20/22 09:55 YANET [id number] 05/20/22 10:03 YANET 05/20/22 09:55 Wound Center Nurse 1 2-left superior FA -Combined with other wound No -Current Size (cm) - Length 0.2 -Current Size (cm) - Width 0.2 -Current Size (cm) - Depth 0.1 -Total Square Cm 0.04 -Photo Taken Yes -Epithelialization Large 67-100% -Tunneling No -Undermining/Tunneling No -Circular Undermining No -Exudate Amt Small -Exudate Type Serosanguineous -Wound Margin Flat & Intact -Granulation Amt Large (67-100%) -Granulation Quality Red -Slough/Fibrin Yes -Necrosis Amt Small (1-33%) -Necrotic Tissue Type Eschar -Structure Exposed N/A -Texture ([place]-wound Skin Appearance) Assessed -Moisture ([place]-wound Skin Appearance) Assessed,Dry/ Scaly -Color ([place]-wound Skin Appearance) Assessed -Temperature ([place]-wound Skin No Abnormality Appearance) (Pt Warm) -Tenderness on Palpation ([place]-wound No Skin Appearance) -Ulcer Cleansing Soap and Water -Foul Odor after Cleansing No -Anesthetic Used 4% Lidocaine Solution #4 L Antecubital cluster -Combined with other wound No -Current Size (cm) - Length 0.3 -Current Size (cm) - Width 0.9 -Current Size (cm) - Depth 0.1 -Total Square Cm 0.27 -Photo Taken Yes -Epithelialization Medium 34-66% -Undermining/Tunneling No -Circular Undermining No -Exudate Amt Small -Exudate Type Serosanguineous -Wound Margin Flat & Intact -Granulation Amt Large (67-100%) -Granulation Quality Red -Slough/Fibrin Yes -Necrosis Amt Small (1-33%) -Necrotic Tissue Type Adherent Slough -Structure Exposed N/A -Texture ([place]-wound Skin Appearance) Assessed -Moisture ([place]-wound Skin Appearance) Assessed,Dry/ Scaly -Color ([place]-wound Skin Appearance) Assessed -Temperature ([place]-wound Skin No Abnormality Appearance) (Pt Warm) -Tenderness on Palpation ([place]-wound No Skin Appearance) -Ulcer Cleansing Soap and Water -Foul Odor after Cleansing No -Anesthetic Used 5% Lidocaine Gel #3 LEFT HAND -Combined with other wound No -Current Size (cm) - Length 0.3 -Current Size (cm) - Width 0.6 -Current Size (cm) - Depth 0.1 -Total Square Cm 0.18 -Photo Taken Yes -Epithelialization Medium 34-66% -Tunneling No -Undermining/Tunneling No -Circular Undermining No -Exudate Amt Small -Exudate Type Serosanguineous -Wound Margin Flat & Intact -Granulation Amt Medium (34-66%) -Granulation Quality Red -Slough/Fibrin Yes -Necrosis Amt Small (1-33%) -Necrotic Tissue Type Adherent Slough -Structure Exposed N/A -Texture ([place]-wound Skin Appearance) Assessed, Scarring -Moisture ([place]-wound Skin Appearance) Assessed,Dry/ Scaly -Color ([place]-wound Skin Appearance) Assessed -Temperature ([place]-wound Skin No Abnormality Appearance) (Pt Warm) -Tenderness on Palpation ([place]-wound No Skin Appearance) -Ulcer Cleansing Soap and Water -Foul Odor after Cleansing No -Anesthetic Used 5% Lidocaine Gel 1-left inferior FA -Combined with other wound No -Current Size (cm) - Length 0.3 -Current Size (cm) - Width 0.2 -Current Size (cm) - Depth 0.1 -Total Square Cm 0.06 -Photo Taken Yes -Epithelialization Medium 34-66% -Tunneling No -Undermining/Tunneling No -Circular Undermining No -Exudate Amt Small -Exudate Type Serosanguineous -Wound Margin Flat & Intact -Granulation Amt Large (67-100%) -Granulation Quality Red -Slough/Fibrin Yes -Necrosis Amt Small (1-33%) -Necrotic Tissue Type Adherent Slough -Structure Exposed N/A -Texture ([place]-wound Skin Appearance) Assessed -Moisture ([place]-wound Skin Appearance) Assessed,Dry/ Scaly -Color ([place]-wound Skin Appearance) Assessed -Temperature ([place]-wound Skin No Abnormality Appearance) (Pt Warm) -Tenderness on Palpation ([place]-wound No Skin Appearance) -Ulcer Cleansing Soap and Water -Anesthetic Used 5% Lidocaine Gel Lower Limb Edema Present NA WC - Nurse 2 - General Ulcer CM Notes Start: 05/20/22 09:55 Freq: Status: Active Protocol: Activity Type Activity Date Activity User E-sign Co-sign Detail Recorded Client Recorded Date Recorded By Document 05/20/22 10:15 Desktop 05/20/22 10:21 05/20/22 10:15 Wound Center Nurse 2 2-left superior FA -Time 10:16 -Correct Patient No -Correct Side, Site, Position No -Correct Procedure No -Procedure Performed No -Tunneling No -Undermining/Tunneling No -Circular Undermining No -Wound/Ulcer Outcome Healed- Epithelialized -Ulcer Cleansing Rinsed/ Irrigated with Saline -Foul Odor after Cleansing No -Bioengineered Tissue No -Bleeding Controlled with Pressure -Treatment Response Procedure Tolerated Well -Offloading No -Debridement - Open, 1st 20sq cm Yes #4 L Antecubital cluster -Time 10:16 -Correct Patient Yes -Correct Side, Site, Position Yes -Correct Procedure Yes -Procedure Performed Yes -Type of Procedure Debridement -Clinical Debridement Epidermis / Dermis -Tissue Removed Epidermis, Dermis -Post Debridement (cm) - Length 3.5 -Post Debridement (cm) - Width 3.3 -Post Debridement (cm) - Depth 0.1 -Total Square (Post) (cm) 11.55 -Area of Debridement (cm) - Length 3.5 -Area of Debridement (cm) - Width 3.3 -Total Square (Area) (cm) 11.55 -Tunneling No -Undermining/Tunneling No -Circular Undermining No -Wound/Ulcer Outcome Not Healed -Ulcer Cleansing Rinsed/ Irrigated with Saline -Foul Odor after Cleansing No -Bioengineered Tissue No -Bleeding Controlled with Pressure -Treatment Response Procedure Tolerated Well -Offloading No -Debridement - Open, 20sq cm Yes #3 LEFT HAND -Time 10:16 -Correct Patient Yes -Correct Side, Site, Position Yes -Correct Procedure Yes -Procedure Performed Yes -Type of Procedure Debridement -Clinical Debridement Epidermis / Dermis -Tissue Removed Epidermis, Dermis -Post Debridement (cm) - Length 0.6 -Post Debridement (cm) - Width 0.2 -Post Debridement (cm) - Depth 0.1 -Total Square (Post) (cm) 0.12 -Area of Debridement (cm) - Length 0.6 -Area of Debridement (cm) - Width 0.2 -Total Square (Area) (cm) 0.12 -Tunneling No -Undermining/Tunneling No -Circular Undermining No -Wound/Ulcer Outcome Not Healed -Ulcer Cleansing Rinsed/ Irrigated with Saline -Foul Odor after Cleansing No -Bioengineered Tissue No -Bleeding Controlled with Pressure -Treatment Response Procedure Tolerated Well -Offloading No -Debridement - Open, 1st 20sq cm No 1-left inferior FA -Time 10:20 -Correct Patient Yes -Correct Side, Site, Position Yes -Correct Procedure Yes -Procedure Performed Yes -Type of Procedure Debridement -Clinical Debridement Epidermis / Dermis -Tissue Removed Epidermis, Dermis -Post Debridement (cm) - Length 0.6 -Post Debridement (cm) - Width 0.5 -Post Debridement (cm) - Depth 0.1 -Total Square (Post) (cm) 0.30 -Area of Debridement (cm) - Length 0.6 -Area of Debridement (cm) - Width 0.5 -Total Square (Area) (cm) 0.30 -Tunneling No -Undermining/Tunneling No -Circular Undermining No -Wound/Ulcer Outcome Not Healed -Ulcer Cleansing Rinsed/ Irrigated with Saline -Foul Odor after Cleansing No -Bioengineered Tissue No -Bleeding Controlled with Pressure -Treatment Response Procedure Tolerated Well -Offloading No -Debridement - Open, 1st 20sq cm No Pain Scale: 0-10 Numeric Is Patient Pain Free? Yes WC - Nurse 3 - General Ulcer D/C NN Start: 05/20/22 09:55 Freq: Status: Active Protocol: Activity Type Activity Date Activity User E-sign Co-sign Detail Recorded Client Recorded Date Recorded By Document 05/20/22 10:23 [facility] [id number] 05/20/22 10:26 [facility] 05/20/22 10:23 Wound Care Nurse 3 #4 L Antecubital cluster -Ulcer Cleansing Rinsed/ Irrigated with Saline -Foul Odor after Cleansing No -Primary Dressing Applied NonAdherent Contact Layer, Promogran -Other Dressing DRSGS PER DL PROTECTIVE OFFICER -Primary Dressing Covered/Secured with Dry Gauze & Roll Gauze, Secured with Tape -Promogran 1 #3 LEFT HAND -Ulcer Cleansing Rinsed/ Irrigated with Saline -Foul Odor after Cleansing No -Primary Dressing Applied NonAdherent Contact Layer, Promogran -Other Dressing DRSGS PER DL PROTECTIVE OFFICER -Primary Dressing Covered/Secured with Dry Gauze & Roll Gauze, Secured with Tape -Promogran 0 1-left inferior FA -Ulcer Cleansing Rinsed/ Irrigated with Saline -Foul Odor after Cleansing No -Primary Dressing Applied NonAdherent Contact Layer, Promogran -Other Dressing DRSG PER DL PROTECTIVE OFFICER -Primary Dressing Covered/Secured with Dry Gauze & Roll Gauze, Secured with Tape -Promogran 0 Left -Tubular Bandage Single Layer -Size of Tubigrip Used Size C -Size C ($) 1 -Other LEFT ARM Treatment Response Procedure Tolerated Well Pain Scale: 0-10 Numeric Is Patient Pain Free? Yes WC - Visit Discharge Discharge Condition Stable Ambulatory Status Ambulatory Transportation Private Auto Additional Wound Wound debrided: Left forearm (inferior) Type of Debridement: Selective debridement Anesthesia Used: 4% Lidocaine Solution Depth: Down to and including healthy tissue and in the subcutaneous layer Percentage of wound debrided: 100 Tissue Removed: Slough and devitalized tissue Severity: Fat Layer Exposed Amount of bleeding with debridement: Mild Bleeding Controlled with: Pressure Patient tolerated procedure: Patient tolerated procedure well Additional Wound Wound debrided: Left elbow cluster Type of Debridement: Selective debridement Anesthesia Used: 4% Lidocaine Solution Depth: Down to and including healthy tissue and in the subcutaneous layer Percentage of wound debrided: 100 Tissue Removed: Slough and devitalized tissue Severity: Fat Layer Exposed Amount of bleeding with debridement: Mild Bleeding Controlled with: Pressure Patient tolerated procedure: Patient tolerated procedure well Assessment/Plan Assessment/Plan (1) Ulcer of upper extremity with fat layer exposed: CODE(S): L98.492 - Non-pressure chronic ulcer of skin of other sites with fat layer exposed (2) Abscess: CODE(S): L02.91 - Cutaneous abscess, unspecified (3) Debility: CODE(S): R53.81 - Other malaise PLAN: Plan It appears the patient is leaving his wounds/ulcers open to air/dry. He was strongly advised to comply with instructions. Continue moistened Promogran, cover with Xeroform to all ulcers. Again, education provided on how to apply dressing, reinforce dressing and use compression. Compliance with instructions strongly recommended. No history of diabetes and normal A1c at 5.1. Increase protein intake, vitamin C, D and zinc discussed. Continue other chronic care management. His questions were answered and he was advised to call with any further questions or concerns. Follow-up in 1 week. This note was generated with [employer] software. It may contain incorrect words, spelling, and punctuation that were not noted in checking the note before signing.
[2022-05-27 09:49] VITALS: BP 149/84; PULSE 63; RESP 16; TEMP 36.1; BMI 42.8
--- NOTE | 2022-05-27 10:27 | PCM.WC.PN ---
History of Present Illness Date of Service: 05/27/22 Chief Complaint: Left Forearm Ulcer History of Wound: Mr Elaine is a 62 yo was referred to the wound center by his primary care physician due to nonhealing left forearm ulcers. Symptoms started months ago. Said to have started with swelling which become subsequently ulcerated. Denies any known precipitating factor. Has tried topical antibiotics and oral antibiotics without any significant improvement. No chills or fever. No prior or similar history in the past. Denies any history of diabetes mellitus. Minimal drainage from the ulcers. At this time, he denies chills, fever or otherwise feeling of unwell. Progress of Wound: Presents today with superior ulcer reopening. He is clearly not following dressing instructions. Has an appointment with dermatology in July. Objective Data Objective Data Vital Signs: Vital Signs Temp Pulse Resp BP O2 Del Method 96.9 F L 63 16 149/84 H Room Air 05/27/22 09:49 05/27/22 09:49 05/27/22 09:49 05/27/22 09:49 05/27/22 09:49 Oxygen Delivery Method Room Air Weight: 307 lb Body Mass Index (BMI) 42.8 Charges/Coding Procedures Integumentary 111xxx-113xx: 88228 Evi subq tissue 20 sq cm/< (Selective/superficial debridement done, please refer to clinical note.) Physical Exam Const alert, oriented x3 and no apparent distress General Appearance: cooperative, comfortable and well kempt HEENT normocephalic, head/scalp atraumatic and hearing grossly normal bilaterally Eyes PERRL and EOMs intact bilaterally General Eye: normal appearance of both eyes Neck full ROM General: normal visual inspection Resp normal respiratory effort Effort and Inspection: able to speak in complete sentences GI soft to palpation and non-tender Extremity full ROM Skin Lesions: lesion noted Wounds: wounds noted Neuro oriented x3, CN's II-XII intact bilaterally and moves all extremities Psych mental status grossly normal Appearance: grossly normal Attitude: calm Speech: normal speech Debridement Note Debridement Note Wound debrided: Left hand Type of Debridement: Selective debridement Anesthesia Used: 4% Lidocaine Solution Depth: Down to and including healthy tissue and in the subcutaneous layer Percentage of wound debrided: 100 Severity: Fat Layer Exposed Amount of bleeding with debridement: Mild Bleeding Controlled with: Pressure Patient tolerated procedure: Patient tolerated procedure well Post-Debridement Measurements and Additional Note: Post-Debridement Measurements/Treatment - Nurse 1 - General Ulcer Assessment Start: 05/20/22 09:55 Freq: Status: Active Protocol: AMANDA Activity Type Activity Date Activity User E-sign Co-sign Detail Recorded Client Recorded Date Recorded By Document 05/20/22 09:55 JF Desktop 05/20/22 10:03 JF Document 05/27/22 09:49 BMF [id number] 05/27/22 09:59 BMF Edit Result 05/27/22 09:49 BMF (1) [id number] 05/27/22 10:00 BMF (1) Pulse Rate (60-100) => 63 Blood Pressure (90/60-120/80) => 149/84 H Blood Pressure Mean (mm Hg) => 105 05/20/22 05/27/22 09:55 09:49 - Today's Visit Information Type of service Follow-up Visit Follow-up Visit (Physician/[facility] (Physician/[employer]ER ) ) Arrival Mode Ambulatory Ambulatory, Walker Transfer Assistance None Accompanied by Patient Identification Verified (Name & Yes Yes ) Patient Requires Transmission-Based No No Precautions Height and Weight Body Mass Index (BMI) 42.8 42.8 BMI Classification Obese Obese Vital Signs Temperature (97.8 F-99.1 F) 98.3 F 96.9 F L Temperature Source Temporal Temporal Pulse Rate (60-100) 65 63 Pulse Location Monitor Monitor Respiratory Rate (12-18) 16 16 Respiratory rate source Observation Observation Oxygen Delivery Method Room Air Blood Pressure (90/60-120/80) 171/87 H 149/84 H Blood Pressure Mean (mm Hg) 115 105 Source Monitor Monitor Position Semi-Fowlers Sitting Blood Pressure Location Right Arm Right Arm History Since Last Visit- (Skip if this is Patient's initial visit) Have you changed medications since your No No last visit? Any new allergies or adverse reactions No No Had a fall/change in ADL's that may No No increase risk of falls Signs or symptoms of abuse and/or No No neglect since last visit Have you been in the hospital since your No No last visit? Has dressing in place as prescribed Yes Yes Has compression in place as prescribed N/A Yes Has offloadiing in place as prescribed N/A N/A Experienced any changes in pain level or No No management Left Footwear Regular Shoe Regular Shoe Right Footwear Regular Shoe Regular Shoe Pain Scale: 0-10 Numeric Is Patient Pain Free? Yes Yes - Nurse 1 - General Ulcer Measurement Start: 05/20/22 09:55 Freq: Status: Active Protocol: Activity Type Activity Date Activity User E-sign Co-sign Detail Recorded Client Recorded Date Recorded By Document 05/20/22 09:55 Desktop 05/20/22 10:03 Document 05/27/22 09:49 [facility] [id number] 05/27/22 09:59 [facility] 05/20/22 05/27/22 09:55 09:49 Wound Center Nurse 1 #4 L Antecubital cluster -Combined with other wound No No -Current Size (cm) - Length 0.3 0.1 -Current Size (cm) - Width 0.9 0.1 -Current Size (cm) - Depth 0.1 0.1 -Total Square Cm 0.27 0.01 -Photo Taken Yes -Epithelialization Medium 34-66% Large 67-100% -Undermining/Tunneling No -Circular Undermining No -Exudate Amt Small -Exudate Type Serosanguineous -Wound Margin Flat & Intact -Granulation Amt Large (67-100%) -Granulation Quality Red -Slough/Fibrin Yes -Necrosis Amt Small (1-33%) -Necrotic Tissue Type Adherent Slough -Structure Exposed N/A -Texture ([place]-wound Skin Appearance) Assessed -Moisture ([place]-wound Skin Appearance) Assessed,Dry/ Scaly -Color ([place]-wound Skin Appearance) Assessed -Temperature ([place]-wound Skin No Abnormality Appearance) (Pt Warm) -Tenderness on Palpation ([place]-wound No Skin Appearance) -Ulcer Cleansing Soap and Water -Foul Odor after Cleansing No -Anesthetic Used 5% Lidocaine Gel #3 LEFT HAND -Combined with other wound No No -Current Size (cm) - Length 0.3 1.1 -Current Size (cm) - Width 0.6 1.4 -Current Size (cm) - Depth 0.1 0.1 -Total Square Cm 0.18 1.54 -Photo Taken Yes No -Epithelialization Medium 34-66% Small 1-33% -Tunneling No No -Undermining/Tunneling No No -Circular Undermining No No -Exudate Amt Small Medium -Exudate Type Serosanguineous Sanguineous -Wound Margin Flat & Intact Distinct, Outline Attached -Granulation Amt Medium (34-66%) Large (67-100%) -Granulation Quality Red Red -Slough/Fibrin Yes No -Necrosis Amt Small (1-33%) None Present (0 %) -Necrotic Tissue Type Adherent Slough -Structure Exposed N/A -Texture ([place]-wound Skin Appearance) Assessed, Assessed, Scarring Scarring -Moisture ([place]-wound Skin Appearance) Assessed,Dry/ Assessed Scaly -Color ([place]-wound Skin Appearance) Assessed Assessed -Temperature ([place]-wound Skin No Abnormality No Abnormality Appearance) (Pt Warm) (Pt Warm) -Tenderness on Palpation ([place]-wound No No Skin Appearance) -Ulcer Cleansing Soap and Water Rinsed/ Irrigated with Saline -Foul Odor after Cleansing No No -Anesthetic Used 5% Lidocaine 5% Lidocaine Gel Gel 2-left superior FA -Combined with other wound No No -Current Size (cm) - Length 0.2 0.8 -Current Size (cm) - Width 0.2 1.3 -Current Size (cm) - Depth 0.1 0.1 -Total Square Cm 0.04 1.04 -Photo Taken Yes No -Epithelialization Large 67-100% None Present -Tunneling No No -Undermining/Tunneling No No -Circular Undermining No No -Exudate Amt Small Medium -Exudate Type Serosanguineous Serosanguineous -Wound Margin Flat & Intact Distinct, Outline Attached -Granulation Amt Large (67-100%) Large (67-100%) -Granulation Quality Red Red -Slough/Fibrin Yes No -Necrosis Amt Small (1-33%) None Present (0 %) -Necrotic Tissue Type Eschar -Structure Exposed N/A -Texture ([place]-wound Skin Appearance) Assessed Assessed, Scarring -Moisture ([place]-wound Skin Appearance) Assessed,Dry/ Assessed Scaly -Color ([place]-wound Skin Appearance) Assessed Assessed -Temperature ([place]-wound Skin No Abnormality No Abnormality Appearance) (Pt Warm) (Pt Warm) -Tenderness on Palpation ([place]-wound No No Skin Appearance) -Ulcer Cleansing Soap and Water Rinsed/ Irrigated with Saline -Foul Odor after Cleansing No No -Anesthetic Used 4% Lidocaine 5% Lidocaine Solution Gel 1-left inferior FA -Combined with other wound No No -Current Size (cm) - Length 0.3 0.7 -Current Size (cm) - Width 0.2 1.3 -Current Size (cm) - Depth 0.1 0.1 -Total Square Cm 0.06 0.91 -Photo Taken Yes No -Epithelialization Medium 34-66% None Present -Tunneling No No -Undermining/Tunneling No No -Circular Undermining No No -Exudate Amt Small Medium -Exudate Type Serosanguineous Serosanguineous -Wound Margin Flat & Intact Distinct, Outline Attached -Granulation Amt Large (67-100%) Large (67-100%) -Granulation Quality Red Red -Slough/Fibrin Yes No -Necrosis Amt Small (1-33%) None Present (0 %) -Necrotic Tissue Type Adherent Slough -Structure Exposed N/A -Texture ([place]-wound Skin Appearance) Assessed Assessed, Scarring -Moisture ([place]-wound Skin Appearance) Assessed,Dry/ Assessed Scaly -Color ([place]-wound Skin Appearance) Assessed Assessed -Temperature ([place]-wound Skin No Abnormality No Abnormality Appearance) (Pt Warm) (Pt Warm) -Tenderness on Palpation ([place]-wound No No Skin Appearance) -Ulcer Cleansing Soap and Water Rinsed/ Irrigated with Saline -Foul Odor after Cleansing No -Anesthetic Used 5% Lidocaine 4% Lidocaine Gel Solution Lower Limb Edema Present NA WC - Nurse 2 - General Ulcer CM Notes Start: 05/20/22 09:55 Freq: Status: Active Protocol: Activity Type Activity Date Activity User E-sign Co-sign Detail Recorded Client Recorded Date Recorded By Document 05/20/22 10:15 JF Desktop 05/20/22 10:21 JF Edit Result 05/20/22 10:15 JF (1) [id number] 05/21/22 07:18 PL Document 05/27/22 10:17 MW [id number] 05/27/22 10:23 MW (1) 2-left superior FA - Debridement - Open, 1st 20sq cm Yes => No 05/20/22 05/27/22 10:15 10:17 Wound Center Nurse 2 #4 L Antecubital cluster -Time 10:16 10:18 -Correct Patient Yes Yes -Correct Side, Site, Position Yes Yes -Correct Procedure Yes Yes -Procedure Performed Yes No -Type of Procedure Debridement -Clinical Debridement Epidermis / Dermis -Tissue Removed Epidermis, Dermis -Post Debridement (cm) - Length 3.5 0 -Post Debridement (cm) - Width 3.3 0 -Post Debridement (cm) - Depth 0.1 -Total Square (Post) (cm) 11.55 0 -Area of Debridement (cm) - Length 3.5 -Area of Debridement (cm) - Width 3.3 -Total Square (Area) (cm) 11.55 -Tunneling No -Undermining/Tunneling No -Circular Undermining No -Wound/Ulcer Outcome Not Healed Healed- Epithelialized -Ulcer Cleansing Rinsed/ Irrigated with Saline -Foul Odor after Cleansing No -Bioengineered Tissue No -Bleeding Controlled with Pressure -Treatment Response Procedure Tolerated Well -Offloading No -Debridement - Open, 1st 20sq cm Yes #3 LEFT HAND -Time 10:16 10:19 -Correct Patient Yes Yes -Correct Side, Site, Position Yes Yes -Correct Procedure Yes Yes -Procedure Performed Yes Yes -Type of Procedure Debridement Debridement -Clinical Debridement Epidermis / Epidermis / Dermis Dermis -Tissue Removed Epidermis, Epidermis Dermis -Post Debridement (cm) - Length 0.6 1.1 -Post Debridement (cm) - Width 0.2 1.3 -Post Debridement (cm) - Depth 0.1 0.1 -Total Square (Post) (cm) 0.12 1.43 -Area of Debridement (cm) - Length 0.6 1.1 -Area of Debridement (cm) - Width 0.2 1.3 -Total Square (Area) (cm) 0.12 1.43 -Tunneling No No -Undermining/Tunneling No No -Circular Undermining No No -Wound/Ulcer Outcome Not Healed Not Healed -Ulcer Cleansing Rinsed/ Rinsed/ Irrigated with Irrigated with Saline Saline -Foul Odor after Cleansing No No -Bioengineered Tissue No No -Bleeding Controlled with Pressure Pressure -Treatment Response Procedure Procedure Tolerated Well Tolerated Well -Offloading No No -Debridement - Open, 1st 20sq cm No Yes 2-left superior FA -Time 10:16 10:19 -Correct Patient No Yes -Correct Side, Site, Position No Yes -Correct Procedure No Yes -Procedure Performed No Yes -Type of Procedure Debridement -Clinical Debridement Epidermis / Dermis -Tissue Removed Epidermis -Post Debridement (cm) - Length 0.9 -Post Debridement (cm) - Width 1.3 -Post Debridement (cm) - Depth 0.1 -Total Square (Post) (cm) 1.17 -Area of Debridement (cm) - Length 0.9 -Area of Debridement (cm) - Width 1.3 -Total Square (Area) (cm) 1.17 -Tunneling No No -Undermining/Tunneling No No -Circular Undermining No No -Wound/Ulcer Outcome Healed- Not Healed Epithelialized -Ulcer Cleansing Rinsed/ Rinsed/ Irrigated with Irrigated with Saline Saline -Foul Odor after Cleansing No No -Bioengineered Tissue No No -Bleeding Controlled with Pressure Pressure -Treatment Response Procedure Procedure Tolerated Well Tolerated Well -Offloading No No -Debridement - Open, 1st 20sq cm No No 1-left inferior FA -Time 10:20 10:20 -Correct Patient Yes Yes -Correct Side, Site, Position Yes Yes -Correct Procedure Yes Yes -Procedure Performed Yes Yes -Type of Procedure Debridement Debridement -Clinical Debridement Epidermis / Epidermis / Dermis Dermis -Tissue Removed Epidermis, Epidermis Dermis -Post Debridement (cm) - Length 0.6 1.0 -Post Debridement (cm) - Width 0.5 1.1 -Post Debridement (cm) - Depth 0.1 0.1 -Total Square (Post) (cm) 0.30 1.10 -Area of Debridement (cm) - Length 0.6 1.0 -Area of Debridement (cm) - Width 0.5 1.1 -Total Square (Area) (cm) 0.30 1.10 -Tunneling No No -Undermining/Tunneling No No -Circular Undermining No No -Wound/Ulcer Outcome Not Healed Not Healed -Ulcer Cleansing Rinsed/ Rinsed/ Irrigated with Irrigated with Saline Saline -Foul Odor after Cleansing No No -Bioengineered Tissue No No -Bleeding Controlled with Pressure Pressure -Treatment Response Procedure Procedure Tolerated Well Tolerated Well -Offloading No No -Debridement - Open, 1st 20sq cm No No Pain Scale: 0-10 Numeric Is Patient Pain Free? Yes Yes - Nurse 3 - General Ulcer D/C NN Start: 05/20/22 09:55 Freq: Status: Active Protocol: Activity Type Activity Date Activity User E-sign Co-sign Detail Recorded Client Recorded Date Recorded By Document 05/20/22 10:23 [facility] [id number] 05/20/22 10:26 [facility] Document 05/20/22 11:15 [id number] 05/20/22 11:18 DL 05/20/22 05/20/22 10:23 11:15 Wound Care Nurse 3 #4 L Antecubital cluster -Ulcer Cleansing Rinsed/ Rinsed/ Irrigated with Irrigated with Saline Saline -Foul Odor after Cleansing No No -Primary Dressing Applied NonAdherent NonAdherent Contact Layer, Contact Layer Promogran -Other Dressing DRSGS PER DL promogran/ [employer] xeroform -Primary Dressing Covered/Secured with Dry Gauze & Dry Gauze & Roll Gauze, Roll Gauze, Secured with Secured with Tape Tape -Other Covering Tubigrip to arm -Promogran 1 #3 LEFT HAND -Ulcer Cleansing Rinsed/ Rinsed/ Irrigated with Irrigated with Saline Saline -Foul Odor after Cleansing No No -Primary Dressing Applied NonAdherent Contact Layer, Promogran -Other Dressing DRSGS PER DL promogran/ [employer] xerofrom -Primary Dressing Covered/Secured with Dry Gauze & Dry Gauze & Roll Gauze, Roll Gauze, Secured with Secured with Tape Tape -Promogran 0 1-left inferior FA -Ulcer Cleansing Rinsed/ Rinsed/ Irrigated with Irrigated with Saline Saline -Foul Odor after Cleansing No No -Primary Dressing Applied NonAdherent Contact Layer, Promogran -Other Dressing DRSG PER DL [employer] promogran/ xerofrom -Primary Dressing Covered/Secured with Dry Gauze & Dry Gauze & Roll Gauze, Roll Gauze, Secured with Secured with Tape Tape -Promogran 0 Left -Tubular Bandage Single Layer -Size of Tubigrip Used Size C Size C -Size C ($) 1 -Other LEFT ARM arm Treatment Response Procedure Tolerated Well Pain Scale: 0-10 Numeric Is Patient Pain Free? Yes Yes WC - Visit Discharge Discharge Condition Stable Ambulatory Status Ambulatory Transportation Private Auto Additional Wound Wound debrided: Left forearm (inferior) Type of Debridement: Selective debridement Anesthesia Used: 4% Lidocaine Solution Depth: Down to and including healthy tissue Percentage of wound debrided: 100 Tissue Removed: Slough and devitalized tissue Severity: Fat Layer Exposed Amount of bleeding with debridement: Mild Bleeding Controlled with: Pressure Patient tolerated procedure: Patient tolerated procedure well Additional Wound Wound debrided: Left forearm (superior) Type of Debridement: Selective debridement Anesthesia Used: 4% Lidocaine Solution Depth: Down to and including healthy tissue and in the subcutaneous layer Tissue Removed: Slough and devitalized tissue Severity: Fat Layer Exposed Amount of bleeding with debridement: Mild Bleeding Controlled with: Pressure Patient tolerated procedure: Patient tolerated procedure well Assessment/Plan Assessment/Plan (1) Ulcer of upper extremity with fat layer exposed: CODE(S): L98.492 - Non-pressure chronic ulcer of skin of other sites with fat layer exposed (2) Abscess: CODE(S): L02.91 - Cutaneous abscess, unspecified (3) Debility: CODE(S): R53.81 - Other malaise PLAN: Plan Debridement done as documented above. Procedure was well-tolerated. Patient continues to leave his wound open to air. Also appears that he is scratching a lot. He is clearly not following instructions. Has an appointment with dermatology in July, we will continue wound care until he establishes with dermatology. We are clearly not able to help him as he is not following instructions. Continue moistened Promogran, cover with Xeroform to all ulcers. Again, education provided on how to apply dressing, reinforce dressing and use compression. Compliance with instructions strongly recommended. No history of diabetes and normal A1c at 5.1. Increase protein intake, vitamin C, D and zinc discussed. Continue other chronic care management. His questions were answered and he was advised to call with any further questions or concerns. Follow-up in 2 Weeks. This note was generated with [employer] dictation software. It may contain incorrect words, spelling, and punctuation that were not noted in checking the note before signing.
== END 2022-06-16 23:59 | disposition home or self-care (01) ==
LOC: WC 10:00
PROVIDERS: PCP Student in an Organized Health Care Education/Training Program; Referring Provider Internal Medicine; Visit Provider Internal Medicine
DX: L98.492 Non-pressure chronic ulcer of skin of other sites with fat layer exposed (principal); R53.81 Other malaise; L02.91 Cutaneous abscess, unspecified
CPT/HCPCS: 97597

== ENCOUNTER 2022-07-08 10:00 | Outpatient (RCR) | payer MEDICARE, MEDICAID, SELFPAY ==
[2022-06-17 00:19] VITALS: BP 149/84; PULSE 63; RESP 16; TEMP 36.1; BMI 42.8
[2022-06-17 10:06] VITALS: BP 162/79; PULSE 75; RESP 20; TEMP 36.2; BMI 42.8
--- NOTE | 2022-06-17 13:18 | PN.PCM_ITS ---
History of Present Illness Date of Service: 06/17/22 Chief Complaint: Left Forearm Ulcer History of Wound: Mr Elaine is a 62 yo was referred to the wound center by his primary care physician due to nonhealing left forearm ulcers. Symptoms started months ago. Said to have started with swelling which become subsequently ulcerated. Denies any known precipitating factor. Has tried topical antibiotics and oral antibiotics without any significant improvement. No chills or fever. No prior or similar history in the past. Denies any history of diabetes mellitus. Minimal drainage from the ulcers. At this time, he denies chills, fever or otherwise feeling of unwell. Progress of Wound: Improvement noted today. Patient and his state that he has used dressing and covered it as directed. Patient also states that he has not been picking or itching at it. Objective Data Objective Data Vital Signs: Vital Signs Temp Pulse Resp BP 97.1 F L 75 20 H 162/79 H 06/17/22 10:06 06/17/22 10:06 06/17/22 10:06 06/17/22 10:06 Weight: 307 lb Body Mass Index (BMI) 42.8 Charges/Coding Visit Charges Office Visits / Consults: 38262 OV L3 Est Physical Exam Const alert, oriented x3 and no apparent distress General Appearance: cooperative, comfortable and well kempt HEENT normocephalic, head/scalp atraumatic and hearing grossly normal bilaterally Eyes PERRL and EOMs intact bilaterally General Eye: normal appearance of both eyes Neck full ROM General: normal visual inspection Resp normal respiratory effort Effort and Inspection: able to speak in complete sentences GI soft to palpation and non-tender Extremity full ROM Skin Lesions: lesion noted Wounds: wounds noted Neuro oriented x3, CN's II-XII intact bilaterally and moves all extremities Psych mental status grossly normal Appearance: grossly normal Attitude: calm Speech: normal speech Debridement Note Debridement Note Post-Debridement Measurements and Additional Note: Post-Debridement Measurements/Treatment LISA - Nurse 1 - General Ulcer Assessment Start: 06/17/22 10:05 Freq: Status: Active Protocol: AMANDA Activity Type Activity Date Activity User E-sign Co-sign Detail Recorded Client Recorded Date Recorded By Document 06/17/22 10:06 LAQUITA [id number] 06/17/22 10:13 LAQUITA 06/17/22 10:06 - Today's Visit Information Type of service 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 ) Arrival Mode Ambulatory Transfer Assistance None Patient Identification Verified (Name & Yes ) Patient Requires Transmission-Based No Precautions Safety Precautions Fall Prevention Height and Weight Body Mass Index (BMI) 42.8 BMI Classification Obese Vital Signs Temperature (97.8 F-99.1 F) 97.1 F L Temperature Source Temporal Pulse Rate (60-100) 75 Pulse Location Monitor Respiratory Rate (12-18) 20 H Respiratory rate source Observation Blood Pressure (90/60-120/80) 162/79 H Blood Pressure Mean (mm Hg) 106 Source Monitor History Since Last Visit- (Skip if this is Patient's initial visit) Have you changed medications since your No last visit? Any new allergies or adverse reactions No Had a fall/change in ADL's that may No increase risk of falls Signs or symptoms of abuse and/or No neglect since last visit Have you been in the hospital since your No last visit? Has dressing in place as prescribed Yes Has compression in place as prescribed No Has offloadiing in place as prescribed N/A Experienced any changes in pain level or No management Pain Scale: 0-10 Numeric Is Patient Pain Free? Yes - Nurse 1 - General Ulcer Measurement Start: 06/17/22 10:05 Freq: Status: Active Protocol: Activity Type Activity Date Activity User E-sign Co-sign Detail Recorded Client Recorded Date Recorded By Document 06/17/22 10:06 LAQUITA [id number] 06/17/22 10:13 LAQUITA 06/17/22 10:06 Wound Center Nurse 1 #3 LEFT HAND -Current Size (cm) - Length 0.7 -Current Size (cm) - Width 1 -Current Size (cm) - Depth 0.1 -Total Square Cm 0.7 -Photo Taken No -Exudate Amt Small -Wound Margin Indistinct, Non -Visible -Granulation Amt Large (67-100%) -Granulation Quality [place] -Necrosis Amt None Present (0 %) -Structure Exposed N/A -Texture ([place]-wound Skin Appearance) Scarring -Moisture ([place]-wound Skin Appearance) No Abnormality -Color ([place]-wound Skin Appearance) No Abnormality -Temperature ([place]-wound Skin No Abnormality Appearance) (Pt Warm) -Tenderness on Palpation ([place]-wound No Skin Appearance) -Ulcer Cleansing Rinsed/ Irrigated with Saline -Foul Odor after Cleansing No -Anesthetic Used 5% Lidocaine Gel 2-left superior FA -Current Size (cm) - Length 0.1 -Current Size (cm) - Width 0.1 -Current Size (cm) - Depth 0.1 -Total Square Cm 0.01 -Photo Taken No -Exudate Amt None Present -Wound Margin Flat & Intact -Granulation Amt Large (67-100%) -Granulation Quality [place] -Necrosis Amt None Present (0 %) -Structure Exposed N/A -Texture ([place]-wound Skin Appearance) Scarring -Moisture ([place]-wound Skin Appearance) No Abnormality -Color ([place]-wound Skin Appearance) No Abnormality -Temperature ([place]-wound Skin No Abnormality Appearance) (Pt Warm) -Tenderness on Palpation ([place]-wound No Skin Appearance) -Ulcer Cleansing Rinsed/ Irrigated with Saline -Foul Odor after Cleansing No -Anesthetic Used 5% Lidocaine Gel 1-left inferior FA -Current Size (cm) - Length 0.1 -Current Size (cm) - Width 0.1 -Current Size (cm) - Depth 0.1 -Total Square Cm 0.01 -Photo Taken No -Exudate Amt None Present -Wound Margin Flat & Intact -Granulation Amt Large (67-100%) -Granulation Quality [place] -Necrosis Amt None Present (0 %) -Structure Exposed N/A -Texture ([place]-wound Skin Appearance) Scarring -Moisture ([place]-wound Skin Appearance) No Abnormality -Color ([place]wound Skin Appearance) No Abnormality -Temperature ([place]-wound Skin No Abnormality Appearance) (Pt Warm) -Tenderness on Palpation ([place]-wound No Skin Appearance) -Ulcer Cleansing Rinsed/ Irrigated with Saline -Foul Odor after Cleansing No -Anesthetic Used 5% Lidocaine Gel WC - Nurse 2 - General Ulcer CM Notes Start: 06/17/22 10:05 Freq: Status: Active Protocol: Activity Type Activity Date Activity User E-sign Co-sign Detail Recorded Client Recorded Date Recorded By Document 06/17/22 10:25 MW [id number] 06/17/22 10:26 MW 06/17/22 10:25 Wound Center Nurse 2 #3 LEFT HAND -Time 10:25 -Correct Patient Yes -Correct Side, Site, Position Yes -Correct Procedure Yes -Procedure Performed No -Post Debridement (cm) - Length 0.1 -Post Debridement (cm) - Width 0.1 -Post Debridement (cm) - Depth 0.1 -Total Square (Post) (cm) 0.01 -Tunneling No -Undermining/Tunneling No -Circular Undermining No -Wound/Ulcer Outcome Not Healed 2-left superior FA -Time 10:25 -Correct Patient Yes -Correct Side, Site, Position Yes -Correct Procedure Yes -Procedure Performed No -Post Debridement (cm) - Length 0.1 -Post Debridement (cm) - Width 0.1 -Post Debridement (cm) - Depth 0.1 -Total Square (Post) (cm) 0.01 -Tunneling No -Undermining/Tunneling No -Circular Undermining No -Wound/Ulcer Outcome Not Healed 1-left inferior FA -Time 10:26 -Correct Patient Yes -Correct Side, Site, Position Yes -Correct Procedure Yes -Procedure Performed No -Post Debridement (cm) - Length 0.1 -Post Debridement (cm) - Width 0.1 -Post Debridement (cm) - Depth 0.1 -Total Square (Post) (cm) 0.01 -Wound/Ulcer Outcome Not Healed Pain Scale: 0-10 Numeric Is Patient Pain Free? Yes Assessment/Plan Assessment/Plan (1) Ulcer of upper extremity with fat layer exposed: CODE(S): L98.492 - Non-pressure chronic ulcer of skin of other sites with fat layer exposed (2) Abscess: CODE(S): L02.91 - Cutaneous abscess, unspecified (3) Debility: CODE(S): R53.81 - Other malaise PLAN: Plan No debridement completed today, minimal area left. As above, patient has been doing dressing changes as recommended. He also states that he is not picking or scratching his wounds. He was strongly commended. Continue Xeroform, cover with gauze and tape. Continue use of Tubigrip. No history of diabetes and normal A1c at 5.1. Continue increased protein intake, vitamin C, D and zinc discussed. Continue other chronic care management. His questions were answered and he was advised to call with any further questions or concerns. Follow-up in 2 Weeks. This note was generated with [employer] software. It may contain incorrect words, spelling, and punctuation that were not noted in checking the note before signing.
[2022-07-01 09:25] VITALS: BP 165/83; PULSE 86; RESP 22; TEMP 37.1; BMI 42.8
--- NOTE | 2022-07-01 10:32 | PCM.WC.PN ---
History of Present Illness Date of Service: 07/01/22 Chief Complaint: Left Forearm Ulcer History of Wound: Mr Elaine is a 62 yo was referred to the wound center by his primary care physician due to nonhealing left forearm ulcers. Symptoms started months ago. Said to have started with swelling which become subsequently ulcerated. Denies any known precipitating factor. Has tried topical antibiotics and oral antibiotics without any significant improvement. No chills or fever. No prior or similar history in the past. Denies any history of diabetes mellitus. Minimal drainage from the ulcers. At this time, he denies chills, fever or otherwise feeling of unwell. Progress of Wound: Continues to show good improvement. Minimal area left. Subjective Subjective No new concerns at this time. Objective Data Objective Data Vital Signs: Vital Signs Temp Pulse Resp BP 98.7 F 86 22 H 165/83 H 07/01/22 09:25 07/01/22 09:25 07/01/22 09:25 07/01/22 09:25 Weight: 307 lb Body Mass Index (BMI) 42.8 Charges/Coding Visit Charges Office Visits / Consults: 48702 OV L3 Est Physical Exam Const alert, oriented x3 and no apparent distress General Appearance: cooperative, comfortable and well kempt HEENT normocephalic, head/scalp atraumatic and hearing grossly normal bilaterally Eyes PERRL and EOMs intact bilaterally General Eye: normal appearance of both eyes Neck full ROM General: normal visual inspection Resp normal respiratory effort Effort and Inspection: able to speak in complete sentences Extremity full ROM Skin Lesions: lesion noted Wounds: wounds noted Neuro oriented x3, CN's II-XII intact bilaterally and moves all extremities Psych mental status grossly normal Appearance: grossly normal Attitude: calm Speech: normal speech Debridement Note Debridement Note Post-Debridement Measurements and Additional Note: Post-Debridement Measurements/Treatment LISA - Nurse 1 - General Ulcer Assessment Start: 06/17/22 10:05 Freq: Status: Active Protocol: AMANDA Activity Type Activity Date Activity User E-sign Co-sign Detail Recorded Client Recorded Date Recorded By Document 06/17/22 10:06 DL [id number] 06/17/22 10:13 DL Document 07/01/22 09:25 DL [id number] 07/01/22 09:36 DL 06/17/22 07/01/22 10:06 09:25 - Today's Visit Information Type of service Follow-up Visit Follow-up Visit (Physician/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 OPERATOR (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/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 OPERATOR ) ) Arrival Mode Ambulatory Ambulatory, Walker Transfer Assistance None None Patient Identification Verified (Name & Yes Yes ) Patient Requires Transmission-Based No No Precautions Safety Precautions Fall Prevention Height and Weight Body Mass Index (BMI) 42.8 42.8 BMI Classification Obese Obese Vital Signs Temperature (97.8 F-99.1 F) 97.1 F L 98.7 F Temperature Source Temporal Temporal Pulse Rate (60-100) 75 86 Pulse Location Monitor Monitor Respiratory Rate (12-18) 20 H 22 H Respiratory rate source Observation Observation Blood Pressure (90/60-120/80) 162/79 H 165/83 H Blood Pressure Mean (mm Hg) 106 110 Source Monitor Monitor History Since Last Visit- (Skip if this is Patient's initial visit) Have you changed medications since your No No last visit? Any new allergies or adverse reactions No No Had a fall/change in ADL's that may No No increase risk of falls Signs or symptoms of abuse and/or No No neglect since last visit Have you been in the hospital since your No No last visit? Has dressing in place as prescribed Yes No Has compression in place as prescribed No N/A Has offloadiing in place as prescribed N/A N/A Experienced any changes in pain level or No No management Pain Scale: 0-10 Numeric Is Patient Pain Free? Yes Yes - Nurse 1 - General Ulcer Measurement Start: 06/17/22 10:05 Freq: Status: Active Protocol: Activity Type Activity Date Activity User E-sign Co-sign Detail Recorded Client Recorded Date Recorded By Document 06/17/22 10:06 DL [id number] 06/17/22 10:13 DL Document 07/01/22 09:25 DL [id number] 07/01/22 09:36 DL 06/17/22 07/01/22 10:06 09:25 Wound Center Nurse 1 2-left superior FA -Current Size (cm) - Length 0.1 0.2 -Current Size (cm) - Width 0.1 0.4 -Current Size (cm) - Depth 0.1 0.1 -Total Square Cm 0.01 0.08 -Photo Taken No No -Exudate Amt None Present Small -Wound Margin Flat & Intact Distinct, Outline Attached -Granulation Amt Large (67-100%) Medium (34-66%) -Granulation Quality [place] -Necrosis Amt None Present (0 None Present (0 %) %) -Structure Exposed N/A N/A -Texture ([place]-wound Skin Appearance) Scarring Scarring -Moisture ([place]-wound Skin Appearance) No Abnormality No Abnormality -Color ([place]-wound Skin Appearance) No Abnormality No Abnormality -Temperature ([place]-wound Skin No Abnormality No Abnormality Appearance) (Pt Warm) (Pt Warm) -Tenderness on Palpation ([place]-wound No No Skin Appearance) -Ulcer Cleansing Rinsed/ Rinsed/ Irrigated with Irrigated with Saline Saline -Foul Odor after Cleansing No No -Anesthetic Used 5% Lidocaine 5% Lidocaine Gel Gel 1-left inferior FA -Current Size (cm) - Length 0.1 0 -Current Size (cm) - Width 0.1 0 -Current Size (cm) - Depth 0.1 0 -Total Square Cm 0.01 0 -Photo Taken No No -Exudate Amt None Present None Present -Wound Margin Flat & Intact Flat & Intact -Granulation Amt Large (67-100%) Large (67-100%) -Granulation Quality [place] -Necrosis Amt None Present (0 None Present (0 %) %) -Structure Exposed N/A N/A -Texture ([place]-wound Skin Appearance) Scarring Scarring -Moisture ([place]-wound Skin Appearance) No Abnormality No Abnormality -Color ([place]wound Skin Appearance) No Abnormality No Abnormality -Temperature ([place]-wound Skin No Abnormality No Abnormality Appearance) (Pt Warm) (Pt Warm) -Tenderness on Palpation ([place]-wound No Skin Appearance) -Ulcer Cleansing Rinsed/ Rinsed/ Irrigated with Irrigated with Saline Saline -Foul Odor after Cleansing No No -Anesthetic Used 5% Lidocaine Gel #3 LEFT HAND -Current Size (cm) - Length 0.7 0.1 -Current Size (cm) - Width 1 0.1 -Current Size (cm) - Depth 0.1 0.1 -Total Square Cm 0.7 0.01 -Photo Taken No Yes -Exudate Amt Small None Present -Wound Margin Indistinct, Non Indistinct, Non -Visible -Visible -Granulation Amt Large (67-100%) Large (67-100%) -Granulation Quality [place] -Necrosis Amt None Present (0 Small (1-33%) %) -Necrotic Tissue Type Adherent Slough -Structure Exposed N/A N/A -Texture ([place]-wound Skin Appearance) Scarring Scarring -Moisture ([place]-wound Skin Appearance) No Abnormality No Abnormality -Color ([place]-wound Skin Appearance) No Abnormality No Abnormality -Temperature ([place]-wound Skin No Abnormality No Abnormality Appearance) (Pt Warm) (Pt Warm) -Tenderness on Palpation ([place]-wound No No Skin Appearance) -Ulcer Cleansing Rinsed/ Rinsed/ Irrigated with Irrigated with Saline Saline -Foul Odor after Cleansing No No -Anesthetic Used 5% Lidocaine 5% Lidocaine Gel Gel WC - Nurse 2 - General Ulcer CM Notes Start: 06/17/22 10:05 Freq: Status: Active Protocol: Activity Type Activity Date Activity User E-sign Co-sign Detail Recorded Client Recorded Date Recorded By Document 06/17/22 10:25 MW [id number] 06/17/22 10:26 MW Document 07/01/22 10:05 MW [id number] 07/01/22 10:07 MW 06/17/22 07/01/22 10:25 10:05 Wound Center Nurse 2 2-left superior FA -Time 10:25 10:06 -Correct Patient Yes Yes -Correct Side, Site, Position Yes Yes -Correct Procedure Yes Yes -Procedure Performed No No -Post Debridement (cm) - Length 0.1 0 -Post Debridement (cm) - Width 0.1 0 -Post Debridement (cm) - Depth 0.1 0 -Total Square (Post) (cm) 0.01 0 -Tunneling No -Undermining/Tunneling No -Circular Undermining No -Wound/Ulcer Outcome Not Healed Healed- Epithelialized 1-left inferior FA -Time 10:26 10:06 -Correct Patient Yes Yes -Correct Side, Site, Position Yes Yes -Correct Procedure Yes Yes -Procedure Performed No No -Post Debridement (cm) - Length 0.1 0 -Post Debridement (cm) - Width 0.1 0 -Post Debridement (cm) - Depth 0.1 0 -Total Square (Post) (cm) 0.01 0 -Wound/Ulcer Outcome Not Healed Healed- Epithelialized #3 LEFT HAND -Time 10:25 10:06 -Correct Patient Yes Yes -Correct Side, Site, Position Yes Yes -Correct Procedure Yes Yes -Procedure Performed No No -Post Debridement (cm) - Length 0.1 0.1 -Post Debridement (cm) - Width 0.1 0.1 -Post Debridement (cm) - Depth 0.1 0.1 -Total Square (Post) (cm) 0.01 0.01 -Tunneling No -Undermining/Tunneling No -Circular Undermining No -Wound/Ulcer Outcome Not Healed Not Healed Pain Scale: 0-10 Numeric Is Patient Pain Free? Yes Yes WC - Nurse 3 - General Ulcer D/C NN Start: 06/17/22 10:05 Freq: Status: Active Protocol: Activity Type Activity Date Activity User E-sign Co-sign Detail Recorded Client Recorded Date Recorded By Document 06/17/22 13:42 DL [id number] 06/17/22 13:44 DL Document 07/01/22 10:07 MW [id number] 07/01/22 10:09 MW 06/17/22 07/01/22 13:42 10:07 Wound Care Nurse 3 2-left superior FA -Ulcer Cleansing Rinsed/ Irrigated with Saline -Foul Odor after Cleansing No -Other Dressing xeroform -Primary Dressing Covered/Secured with Dry Gauze, Secured with Tape 1-left inferior FA -Ulcer Cleansing Rinsed/ Irrigated with Saline -Foul Odor after Cleansing No -Other Dressing xerofrom -Primary Dressing Covered/Secured with Dry Gauze, Secured with Tape #3 LEFT HAND -Ulcer Cleansing Rinsed/ Irrigated with Saline -Foul Odor after Cleansing No -Other Dressing xeroform xeroform -Primary Dressing Covered/Secured with Dry Gauze, Dry Gauze, Secured with Secured with Tape Tape left arm -Lotion applied to leg before No compression wrap -Tubular Bandage Single Layer -Size of Tubigrip Used Size C -Size C ($) 1 Treatment Response Procedure Procedure Tolerated Well Tolerated Well Pain Scale: 0-10 Numeric Is Patient Pain Free? Yes Yes Teaching: Wound Center Dressing Your Wound -Person Taught Patient -Teaching Method Discussion -Response to teaching Verbalize understanding WC - Visit Discharge Discharge Condition Stable Stable Ambulatory Status Ambulatory Ambulatory Transportation Private Auto Private Auto Accompanied by Medication Reconcilliation completed & No provided to patient/care provider Clinical Summary of Care Provided Yes Assessment/Plan Assessment/Plan (1) Ulcer of upper extremity with fat layer exposed: CODE(S): L98.492 - Non-pressure chronic ulcer of skin of other sites with fat layer exposed (2) Abscess: CODE(S): L02.91 - Cutaneous abscess, unspecified (3) Debility: CODE(S): R53.81 - Other malaise PLAN: Plan No debridement completed today, minimal area left. He continues to remain compliant with dressing changes and wound coverage. Also not picking. Anticipate complete healing in a week if everything remains the same. Continue Xeroform, cover with gauze and tape. Continue use of Tubigrip. No history of diabetes and normal A1c at 5.1. Continue increased protein intake, vitamin C, D and zinc discussed. Continue other chronic care management. His questions were answered and he was advised to call with any further questions or concerns. Follow-up in 1 week with possible discharge. This note was generated with [employer] dictation software. It may contain incorrect words, spelling, and punctuation that were not noted in checking the note before signing.
[2022-07-08 09:59] VITALS: BP 156/73; PULSE 95; RESP 16; BMI 42.8
--- NOTE | 2022-07-08 11:33 | PCM.WC.PN ---
History of Present Illness Date of Service: 07/08/22 Chief Complaint: Left Forearm Ulcer History of Wound: Mr Elaine is a 62 yo was referred to the wound center by his primary care physician due to nonhealing left forearm ulcers. Symptoms started months ago. Said to have started with swelling which become subsequently ulcerated. Denies any known precipitating factor. Has tried topical antibiotics and oral antibiotics without any significant improvement. No chills or fever. No prior or similar history in the past. Denies any history of diabetes mellitus. Minimal drainage from the ulcers. At this time, he denies chills, fever or otherwise feeling of unwell. Progress of Wound: Has been covering with a band aid with subsequent erythema. Ulcer still largely closed/healed. Objective Data Objective Data Vital Signs: Vital Signs Temp Pulse Resp BP O2 Del Method 98.7 F 95 16 156/73 H Room Air 07/01/22 09:25 07/08/22 09:59 07/08/22 09:59 07/08/22 09:59 07/08/22 09:59 Oxygen Delivery Method Room Air Weight: 307 lb Body Mass Index (BMI) 42.8 Charges/Coding Visit Charges Office Visits / Consults: [id number] OV L3 Est Physical Exam Const alert, oriented x3 and no apparent distress General Appearance: cooperative, comfortable and well kempt HEENT normocephalic, head/scalp atraumatic and hearing grossly normal bilaterally Eyes PERRL and EOMs intact bilaterally General Eye: normal appearance of both eyes Neck full ROM General: normal visual inspection Resp normal respiratory effort Effort and Inspection: able to speak in complete sentences Extremity full ROM Skin Lesions: lesion noted Wounds: wounds noted Neuro oriented x3, CN's II-XII intact bilaterally and moves all extremities Psych mental status grossly normal Appearance: grossly normal Attitude: calm Speech: normal speech Debridement Note Debridement Note Post-Debridement Measurements and Additional Note: Post-Debridement Measurements/Treatment LISA - Nurse 1 - General Ulcer Assessment Start: 06/17/22 10:05 Freq: Status: Active Protocol: AMANDA Activity Type Activity Date Activity User E-sign Co-sign Detail Recorded Client Recorded Date Recorded By Document 06/17/22 10:06 DL [id number] 06/17/22 10:13 DL Document 07/01/22 09:25 DL [id number] 07/01/22 09:36 DL Document 07/08/22 09:59 BM [id number] 07/08/22 10:08 BMF 06/17/22 07/01/22 07/08/22 10:06 09:25 09:59 - Today's Visit Information Type of service Follow-up Visit Follow-up Visit Follow-up Visit (Physician/SUSTAINABLE PRODUCTS MARKETING MANAGER (Physician/SUSTAINABLE PRODUCTS MARKETING MANAGER (Physician/SUSTAINABLE PRODUCTS MARKETING MANAGER ) ) ) Arrival Mode Ambulatory Ambulatory, Ambulatory Walker Transfer Assistance None None None Accompanied by Patient Identification Verified (Name & Yes Yes Yes ) Patient Requires Transmission-Based No No No Precautions Safety Precautions Fall Prevention Height and Weight Body Mass Index (BMI) 42.8 42.8 42.8 BMI Classification Obese Obese Obese Vital Signs Temperature (97.8 F-99.1 F) 97.1 F L 98.7 F Temperature Source Temporal Temporal Pulse Rate (60-100) 75 86 95 Pulse Location Monitor Monitor Monitor Respiratory Rate (12-18) 20 H 22 H 16 Respiratory rate source Observation Observation Observation Oxygen Delivery Method Room Air Blood Pressure (90/60-120/80) 162/79 H 165/83 H 156/73 H Blood Pressure Mean (mm Hg) 106 110 100 Source Monitor Monitor Monitor Position Sitting Blood Pressure Location Right Arm History Since Last Visit- (Skip if this is Patient's initial visit) Have you changed medications since your No No No last visit? Any new allergies or adverse reactions No No No Had a fall/change in ADL's that may No No No increase risk of falls Signs or symptoms of abuse and/or No No No neglect since last visit Have you been in the hospital since your No No No last visit? Has dressing in place as prescribed Yes No Yes Has compression in place as prescribed No N/A Yes Has offloadiing in place as prescribed N/A N/A N/A Experienced any changes in pain level or No No No management Left Footwear Regular Shoe Right Footwear Regular Shoe Pain Scale: 0-10 Numeric Is Patient Pain Free? Yes Yes Yes - Nurse 1 - General Ulcer Measurement Start: 06/17/22 10:05 Freq: Status: Active Protocol: Activity Type Activity Date Activity User E-sign Co-sign Detail Recorded Client Recorded Date Recorded By Document 06/17/22 10:06 DL [id number] 06/17/22 10:13 DL Document 07/01/22 09:25 DL [id number] 07/01/22 09:36 DL Document 07/08/22 09:59 BM [id number] 07/08/22 10:08 BMF 06/17/22 07/01/22 07/08/22 10:06 09:25 09:59 Wound Center Nurse 1 2-left superior FA -Current Size (cm) - Length 0.1 0.2 -Current Size (cm) - Width 0.1 0.4 -Current Size (cm) - Depth 0.1 0.1 -Total Square Cm 0.01 0.08 -Photo Taken No No -Exudate Amt None Present Small -Wound Margin Flat & Intact Distinct, Outline Attached -Granulation Amt Large (67-100%) Medium (34-66%) -Granulation Quality [place] -Necrosis Amt None Present (0 None Present (0 %) %) -Structure Exposed N/A N/A -Texture ([place]-wound Skin Appearance) Scarring Scarring -Moisture ([place]-wound Skin Appearance) No Abnormality No Abnormality -Color ([place]-wound Skin Appearance) No Abnormality No Abnormality -Temperature ([place]-wound Skin No Abnormality No Abnormality Appearance) (Pt Warm) (Pt Warm) -Tenderness on Palpation ([place]-wound No No Skin Appearance) -Ulcer Cleansing Rinsed/ Rinsed/ Irrigated with Irrigated with Saline Saline -Foul Odor after Cleansing No No -Anesthetic Used 5% Lidocaine 5% Lidocaine Gel Gel 1-left inferior FA -Current Size (cm) - Length 0.1 0 -Current Size (cm) - Width 0.1 0 -Current Size (cm) - Depth 0.1 0 -Total Square Cm 0.01 0 -Photo Taken No No -Exudate Amt None Present None Present -Wound Margin Flat & Intact Flat & Intact -Granulation Amt Large (67-100%) Large (67-100%) -Granulation Quality [place] -Necrosis Amt None Present (0 None Present (0 %) %) -Structure Exposed N/A N/A -Texture ([place]-wound Skin Appearance) Scarring Scarring -Moisture ([place]-wound Skin Appearance) No Abnormality No Abnormality -Color ([place]-wound Skin Appearance) No Abnormality No Abnormality -Temperature ([place]-wound Skin No Abnormality No Abnormality Appearance) (Pt Warm) (Pt Warm) -Tenderness on Palpation ([place]-wound No Skin Appearance) -Ulcer Cleansing Rinsed/ Rinsed/ Irrigated with Irrigated with Saline Saline -Foul Odor after Cleansing No No -Anesthetic Used 5% Lidocaine Gel #3 LEFT HAND -Combined with other wound No -Current Size (cm) - Length 0.7 0.1 1.8 -Current Size (cm) - Width 1 0.1 1 -Current Size (cm) - Depth 0.1 0.1 0.1 -Total Square Cm 0.7 0.01 1.8 -Date of Last Picture (Recall this 07/08/22 field) -Photo Taken No Yes Yes -Epithelialization Small 1-33% -Tunneling No -Undermining/Tunneling No -Circular Undermining No -Exudate Amt Small None Present Small -Exudate Type Serosanguineous -Wound Margin Indistinct, Non Indistinct, Non Flat & Intact -Visible -Visible -Granulation Amt Large (67-100%) Large (67-100%) Large (67-100%) -Granulation Quality [place] Red -Slough/Fibrin Yes -Necrosis Amt None Present (0 Small (1-33%) Small (1-33%) %) -Necrotic Tissue Type Adherent Slough Adherent Slough -Structure Exposed N/A N/A -Texture ([place]-wound Skin Appearance) Scarring Scarring Assessed, Scarring -Moisture ([place]-wound Skin Appearance) No Abnormality No Abnormality Assessed -Color ([place]-wound Skin Appearance) No Abnormality No Abnormality Assessed -Temperature ([place]-wound Skin No Abnormality No Abnormality No Abnormality Appearance) (Pt Warm) (Pt Warm) (Pt Warm) -Tenderness on Palpation ([place]-wound No No No Skin Appearance) -Ulcer Cleansing Rinsed/ Rinsed/ Rinsed/ Irrigated with Irrigated with Irrigated with Saline Saline Saline -Foul Odor after Cleansing No No No -Anesthetic Used 5% Lidocaine 5% Lidocaine 5% Lidocaine Gel Gel Gel WC - Nurse 2 - General Ulcer CM Notes Start: 06/17/22 10:05 Freq: Status: Active Protocol: Activity Type Activity Date Activity User E-sign Co-sign Detail Recorded Client Recorded Date Recorded By Document 06/17/22 10:25 MW [id number] 06/17/22 10:26 MW Document 07/01/22 10:05 MW [id number] 07/01/22 10:07 MW Document 07/08/22 10:28 MW [id number] 07/08/22 10:35 MW 06/17/22 07/01/22 07/08/22 10:25 10:05 10:28 Wound Center Nurse 2 2-left superior FA -Time 10:25 10:06 -Correct Patient Yes Yes -Correct Side, Site, Position Yes Yes -Correct Procedure Yes Yes -Procedure Performed No No -Post Debridement (cm) - Length 0.1 0 -Post Debridement (cm) - Width 0.1 0 -Post Debridement (cm) - Depth 0.1 0 -Total Square (Post) (cm) 0.01 0 -Tunneling No -Undermining/Tunneling No -Circular Undermining No -Wound/Ulcer Outcome Not Healed Healed- Epithelialized 1-left inferior FA -Time 10:26 10:06 -Correct Patient Yes Yes -Correct Side, Site, Position Yes Yes -Correct Procedure Yes Yes -Procedure Performed No No -Post Debridement (cm) - Length 0.1 0 -Post Debridement (cm) - Width 0.1 0 -Post Debridement (cm) - Depth 0.1 0 -Total Square (Post) (cm) 0.01 0 -Wound/Ulcer Outcome Not Healed Healed- Epithelialized #3 LEFT HAND -Time 10:25 10:06 10:30 -Correct Patient Yes Yes Yes -Correct Side, Site, Position Yes Yes Yes -Correct Procedure Yes Yes Yes -Procedure Performed No No No -Post Debridement (cm) - Length 0.1 0.1 0 -Post Debridement (cm) - Width 0.1 0.1 0 -Post Debridement (cm) - Depth 0.1 0.1 0 -Total Square (Post) (cm) 0.01 0.01 0 -Tunneling No No -Undermining/Tunneling No No -Circular Undermining No -Wound/Ulcer Outcome Not Healed Not Healed Healed- Epithelialized Pain Scale: 0-10 Numeric Is Patient Pain Free? Yes Yes Yes WC - Nurse 3 - General Ulcer D/C NN Start: 06/17/22 10:05 Freq: Status: Active Protocol: Activity Type Activity Date Activity User E-sign Co-sign Detail Recorded Client Recorded Date Recorded By Document 06/17/22 13:42 DL [id number] 06/17/22 13:44 DL Document 07/01/22 10:07 MW [id number] 07/01/22 10:09 MW Document 07/08/22 10:42 BM [id number] 07/08/22 10:43 BMF 06/17/22 07/01/22 07/08/22 13:42 10:07 10:42 Wound Care Nurse 3 2-left superior FA -Ulcer Cleansing Rinsed/ Irrigated with Saline -Foul Odor after Cleansing No -Other Dressing xeroform -Primary Dressing Covered/Secured with Dry Gauze, Secured with Tape 1-left inferior FA -Ulcer Cleansing Rinsed/ Irrigated with Saline -Foul Odor after Cleansing No -Other Dressing xerofrom -Primary Dressing Covered/Secured with Dry Gauze, Secured with Tape #3 LEFT HAND -Ulcer Cleansing Rinsed/ Rinsed/ Irrigated with Irrigated with Saline Saline -Foul Odor after Cleansing No No -Primary Dressing Applied NonAdherent Contact Layer -Other Dressing xeroform xeroform -Primary Dressing Covered/Secured with Dry Gauze, Dry Gauze, Dry Gauze, Secured with Secured with Secured with Tape Tape Tape left arm -Lotion applied to leg before No compression wrap -Tubular Bandage Single Layer Single Layer -Size of Tubigrip Used Size C Size C -Size C ($) 1 1 Treatment Response Procedure Procedure Procedure Tolerated Well Tolerated Well Tolerated Well Pain Scale: 0-10 Numeric Is Patient Pain Free? Yes Yes Yes Teaching: Wound Center Dressing Your Wound -Person Taught Patient -Teaching Method Discussion -Response to teaching Verbalize understanding WC - Visit Discharge Discharge Condition Stable Stable Stable Ambulatory Status Ambulatory Ambulatory Ambulatory Transportation Private Auto Private Auto Private Auto Accompanied by Medication Reconcilliation completed & No provided to patient/care provider Clinical Summary of Care Provided Yes Assessment/Plan Assessment/Plan (1) Ulcer of upper extremity with fat layer exposed: CODE(S): L98.492 - Non-pressure chronic ulcer of skin of other sites with fat layer exposed (2) Abscess: CODE(S): L02.91 - Cutaneous abscess, unspecified (3) Debility: CODE(S): R53.81 - Other malaise PLAN: Plan As above, increased surrounding erythema due to using a Band-Aid instead of following dressing instructions. He was advised to discontinue Band-Aid use. Very minimal opening so we will discharge. Continue Xeroform, cover with gauze and tape. Continue use of Tubigrip until evaluation by dermatology. No history of diabetes and normal A1c at 5.1. Continue increased protein intake, vitamin C, D and zinc discussed. Continue other chronic care management. His questions were answered and he was advised to call with any further questions or concerns. Discharge from the wound center. This note was generated with [employer] dictation software. It may contain incorrect words, spelling, and punctuation that were not noted in checking the note before signing.
== END 2022-07-09 10:40 | disposition home or self-care (01) ==
LOC: WC 10:00
PROVIDERS: PCP Student in an Organized Health Care Education/Training Program; Referring Provider Internal Medicine; Visit Provider Internal Medicine
DX: L98.492 Non-pressure chronic ulcer of skin of other sites with fat layer exposed (principal); R53.81 Other malaise; L02.91 Cutaneous abscess, unspecified
CPT/HCPCS: 99213; G0463

== ENCOUNTER → 2023-04-13 | Outpatient (CLI) | payer MEDICARE, MEDICAID, SELFPAY ==
[2023-04-13 15:12] LABS: Absolute Lymphocyte Count 1.34 X10^3/uL (0.83-4.51); Absolute Neutrophil Count 2.8 X10^3/uL (2.0-7.7); Basophil# 0.05 X10^3/uL; Eosinophil# 0.13 X10^3/uL; Eosinophils% 2.7 % (0-5); Hematocrit 39.7 % (40-54); Hemoglobin 13.1 g/dL (13.0-16.5); Lymphocyte # 1.34 X10^3/ul (0.83-4.51); Lymphocyte % 27.9 % (19-41); Mean Corpuscular Hgb 31.9 pg (27.0-32.0); Mean Corpuscular Volume 96.6 fL (80-94); Mean Platelet Vol. 8.6 fl (6.2-12.0); Monocyte# 0.51 X10^3/uL; Monocyte% 10.6 % (0-10); NRBC Flagged by Analyzer 0 % (0-5); Neutrophil # 2.75 X10^3/uL (2.7-7.7); Neutrophil % 57.4 % (47-70); Platelet Count 171 K/mm3 (150-450); RBC Distribution Width CV 14.5 % (11.6-14.6); RBC Distribution Width SD 51.4 fl (35.1-43.9); Red Blood Count 4.11 M/mm3 (4.6-6.2); White Blood Count 4.8 K/mm3 (4.4-11.0)
[2023-04-13 15:15] LABS: Polychromasia 4.8
[2023-04-13 15:16] LABS: Erythrocyte Sedimentation Rate 10 mm/hr (0-20)
[2023-04-13 15:25] LABS: International Normalized Ratio 2.4; Prothrombin Time (Protime)PT. 26.8 SECONDS (11.7-14.9)
[2023-04-13 15:51] LABS: ALB/GLOB Ratio 0.6 RATIO (0.9-2.4); AST(SGOT) 34 U/L (15-37); Alanine Aminotransfer ALT/SGPT 12 U/L (16-61); Albumin, Serum 2.5 g/dL (3.2-5.0); Alkaline Phosphatase 101 U/L (45-117); Anion Gap 4 (5-15); BUN 17 mg/dL (7-18); BUN/Creat Ratio 9.8 RATIO (10-20); CRP 6.53 mg/L (0.0-3.0); Calcium,Total 9.1 mg/dL (8.5-10.1); Chloride 109 mmol/L (98-107); Creatinine, Serum 1.74 mg/dL (0.70-1.30); EST Glomerular Filtration Rate 42 mL/min (>60); Est Glom Filt Rate - Afr Amer 51 mL/min (>60); Ferritin 66 ng/mL (26-388); Globulin 4.1 g/dL (2.2-4.2); Glucose 86 mg/dL (74-106); LDH 275 U/L (87-241); Potassium 4.7 mmol/L (3.5-5.1); Protein, Total 6.6 g/dL (6.4-8.2); Sodium Level 139 mmol/L (136-145); Thyroid Stim Hormone (TSH) 3.95 uIU/mL (0.358-3.74)
[2023-04-13 16:42] LABS: Vitamin B12 788 pg/mL (211-911)
[2023-04-13 18:24] LABS: Hemoglobin A1c 4.9 % (3.8-5.6)
[2023-04-18 19:07] LABS: AFP, Tumor Marker < 1.8 ng/mL (0.0-8.4); Angiotensin Convert Enzyme 124 U/L (14-82); Anti-Smooth Muscle ABS 12 Units (0-19); Copper, Serum or Plasma 95 ug/dL (69-132); Cytoplasmic Ab (C-ANCA) <1:20 titer (Neg:<1:20); Endomysial Antibody IgA Negative (Negative); HEPATITIS B SURFACE AG Negative (Negative); Haptoglobin < 10 mg/dL (32-363); Hep C Antibodies Non Reactive (Non Reactive); Hepatitis A IgM Antibody Negative (Negative); Hepatitis B Core AB IgM Negative (Negative); Immunoglobulin A 473 mg/dL (61-437); Immunoglobulin E 112 IU/mL (6-495); Immunoglobulin G 1861 mg/dL (603-1613); Immunoglobulin M 281 mg/dL (20-172); Perinuclear Ab (P-ANCA) <1:20 titer (Neg:<1:20); t-Transglutaminase IgA <2 U/mL (0-3)
[2023-04-19 15:07] LABS: Anti-Mitochondrial AB <20.0 Units (0.0-20.0); Vitamin D 1,25-Dihydroxy 15.4 pg/mL (24.8-81.5)
== END | disposition home or self-care (01) ==
PROVIDERS: PCP Student in an Organized Health Care Education/Training Program; Referring Provider Internal Medicine Gastroenterology; Visit Provider Internal Medicine Gastroenterology
DX: K74.60 Unspecified cirrhosis of liver (principal); K72.90 Hepatic failure, unspecified without coma; D69.6 Thrombocytopenia, unspecified; G45.9 Transient cerebral ischemic attack, unspecified; I10 Essential (primary) hypertension; R79.89 Other specified abnormal findings of blood chemistry
CPT/HCPCS: 36415; 80053; 80074; 82105; 82140; 82164; 82390; 82525; 82607; 82652; 82728; 82784; 82785; 83010; 83036; 83516; 83615; 84443; 85025; 85610; 85652; 86140; 86255; 86256

== ENCOUNTER → 2023-05-03 | Outpatient (CLI) | payer MEDICARE, MEDICAID, SELFPAY ==
--- NOTE | 2023-05-03 15:28 | CT_ITS ---
STUDY: CT ABDOMEN AND PELVIS WITH AND WITHOUT CONTRAST REASON FOR EXAM: Male, 63 years old. Tripple phase liver RADIATION DOSAGE (If Supplied By Facility): CTDIvol = ( 20.05 ) mGy, DLP = ( 2570.34 ) mGycm TECHNIQUE: Transaxial images were obtained from the dome of the diaphragm to the symphysis pubis with oral contrast. Oral and amp; IV Readi-CAT and amp; 100mL Isovue-300 was administered. Sagittal and coronal images were reconstructed. Individualized dose optimization techniques were used for this CT. COMPARISON: 12/22/2019 FINDINGS: The visualized lung bases are unremarkable. The visualized portions of the heart are within normal limits. Normal liver. There are surgical clips in the gallbladder fossa consistent with a prior cholecystectomy. Normal spleen. Normal pancreas. Normal bilateral adrenal glands. Normal right kidney. Normal left kidney. Normal visualized stomach. Normal small intestine. There are multiple colonic diverticula consistent with diverticulosis. The appendix is visualized and appears normal. Normal abdominal aorta. Normal inferior vena cava. Normal retroperitoneum. Normal urinary bladder. Normal abdominal wall. There are diffuse degenerative changes of the visualized lumbar spine. CT/CT Abd/Pelvis W/WO Contrast IMPRESSION: 1. No hepatic mass. 2. Sigmoid diverticulosis without diverticulitis. Electronically Signed: Sanjiv Hobbs MD at 21:58 EDT ,
== END | disposition home or self-care (01) ==
LOC: CT 15:01
PROVIDERS: PCP Student in an Organized Health Care Education/Training Program; Referring Provider Internal Medicine Gastroenterology; Visit Provider Internal Medicine Gastroenterology
DX: K74.60 Unspecified cirrhosis of liver (principal)
CPT/HCPCS: 74178; Q9967